=== PATIENT | female | born 1955 | race African-American/Black ===

== ENCOUNTER 2018-12-02 22:34 | Observation (INO) | payer OTHER ==
[2018-12-02 23:37] LABS: Absolute Lymphocytes (CBC) 3.4 K/uL (0.7-4.9); Basophils % 0.9 % (0-1.3); Hematocrit 37.9 % (36.0-45.0); Lymphocytes % 28.4 % (15.3-44.8); MPV 9.3 fL (7.6-11.3); Protime INR 1.12; RBC Red Blood Cell Count 4.19 M/uL (3.86-4.86)
[2018-12-02 23:50] LABS: ALT/SGPT 22 U/L (12-78); AST/SGOT 14 U/L (15-37); Albumin 3.2 g/dL (3.4-5.0); Alkaline Phosphatase 230 U/L (45-117); BUN Blood Urea Nitrogen 16 mg/dL (7-18); Bicarbonate 26 mmol/L (21-32); Bilirubin Direct < 0.1 mg/dL (0-0.2); Bilirubin Total 0.3 mg/dL (0.2-1.0); Glucose Level 106 mg/dL (74-106); Magnesium 2.1 mg/dL (1.8-2.4); NT PRO-BNP 4590 pg/mL (<125); Potassium 4.1 mmol/L (3.5-5.1); Protein, Total 7.9 g/dL (6.4-8.2); Sodium Level 143 mmol/L (136-145); Troponin (Emerg Dept Use Only) 0.06 ng/mL (0.0-0.045)
[2018-12-03 00:17] LABS: Blood Gas Oxyhemoglobin 86.8 % (94-97); Blood O2 Saturation 90.7 % (92-98.5)
[2018-12-03] MEDS ORDERED: ACETAMINOPHEN 500 MG TAB ONE (01:17)
[2018-12-03] MEDS ORDERED: TRAMADOL HCL 50 MG TAB ONE (01:27)
[2018-12-03] MEDS ORDERED: MORPHINE 2 MG/ML SYR ONE (02:02)
[2018-12-03] MEDS ORDERED: ONDANSETRON 4 MG/2 ML VIAL ONE (02:02)
[2018-12-03] MEDS ORDERED: cloNIDine HCl 0.1 MG TAB ONE (02:41)
[2018-12-03] MEDS ORDERED: FUROSEMIDE 40 MG/4 ML VIAL ONE (02:41)
[2018-12-03 02:43] LABS: Urine Blood TRACE (NEG); Urine Glucose NEGATIVE (NEG); Urine Protein 2+ (NEG); Urine Specific Gravity 1.015 (1.005-1.030)
--- NOTE | 2018-12-03 02:45 | ER ---
Nurse's Notes [facility] Name: Emeli Perez Age: 63 yrs Sex: Female : 1955 Arrival Date: 12/02/2018 Time: 22:36 Bed 7 Private MD: Diagnosis: Unspecified combined systolic (congestive) and diastolic (congestive) heart failure;Hypoxemia;Hypertensive crisis Presentation: 12/02 22:42 Presenting complaint: EMS states: they were called to pt home for SOB, chest pain and ak1 right ear pain. pt was given oxygen, asprin 324mg and nitro 0.4 SL, pt reported pain resolved. pt started Levaquin yesterday after seeing the PCP for sinus congestion, SOB and right ear pain. Transition of care: patient was not received from another setting of care. Onset of symptoms is unknown. Risk Assessment: Do you want to hurt yourself or someone else? Patient reports no desire to harm self or others. Initial Sepsis Screen: Does the patient meet any 2 criteria? No. Patient's initial sepsis screen is negative. Does the patient have a suspected source of infection? No. Patient's initial sepsis screen is negative. Care prior to arrival: None. 22:42 Method Of Arrival: EMS: [facility] ak1 22:42 Acuity: CORNELIA 3 ak1 Triage Assessment: 22:54 General: Appears in no apparent distress. Behavior is calm, cooperative. Pain: ak1 Complains of pain in right ear and chest. EENT: Reports pain in right ear X2 months with chest congestion. pt seen by PCP started levoquin yesterday. Neuro: Level of Consciousness is awake, alert, obeys commands, confused, Oriented to person, place, time, situation, Appropriate for age Sr. Media Manager are equal bilaterally Moves all extremities. Speech is normal. Cardiovascular: Reports pt denies chest pain at this moment. chest pain resolved upon arrival to ER after oxygen, aspirin and SL nitro. Respiratory: Reports shortness of breath at rest Onset: The symptoms/episode began/occurred yesterday, the patient has mild shortness of breath. GI: No signs and/or symptoms were reported involving the gastrointestinal system. : No signs and/or symptoms were reported regarding the genitourinary system. Derm: No signs and/or symptoms reported regarding the dermatologic system. Musculoskeletal: No signs and/or symptoms reported regarding the musculoskeletal system. Historical: - Allergies: 22:50 Codeine; ak1 22:50 Morphine; ak1 22:50 PENICILLINS; ak1 - Home Meds: 22:50 alprazolam 0.5 mg Oral tab [Active]; atenolol 50 mg Oral tab [Active]; furosemide 40 mg ak1 oral tab [Active]; Hydrocodone-Acetaminophen 5/500 Oral [Active]; simvastatin 40 mg Oral tab for Hyperlipidemia [Active]; clonidine HCl 0.2 mg Oral tab 1 tab once daily [Active]; gabapentin 300 mg oral cap [Active]; new blood pressure med [Active]; allopurinol Oral [Active]; - PMHx: 22:50 CHF; Hypertension; Hyperlipidemia; Gout; Arthritis; ak1 - PSHx: 22:50 back surgery x5; Cholecystectomy; Appendectomy; Hysterectomy; ak1 - Immunization history:: Adult Immunizations unknown. - Social history:: Smoking status: Patient/guardian denies using tobacco. - Ebola Screening: : No symptoms or risks identified at this time. Screenin:54 Abuse screen: Denies threats or abuse. Denies injuries from another. Nutritional ak1 screening: No deficits noted. Tuberculosis screening: No symptoms or risk factors identified. Fall Risk None identified. Assessment: 23:01 Cardiovascular: Rhythm is sinus bradycardia. Respiratory: Airway is patent Respiratory ak1 effort is even, unlabored, Respiratory pattern is regular, symmetrical, congestion heard in pt chest. pt c/o "rattling" in her chest. 23:36 Reassessment: pt assisted to bedside commode. pt placed in pull up brief. General: ak1 Appears in no apparent distress. 12/03 00:00 Reassessment: pt jewelry placed in a urine cup and then into belonging bag with pt ak1 shirt and underwear. pt large hoop earrings given to her son at the bedside. 01:16 Reassessment: complaint of severe ear pain ED provider aware with order made and rr5 carried out. 01:20 Reassessment: patient refused for tylenol medication for pain. ED provider aware. rr5 02:13 Reassessment: pt crying due to right ear pain, ERP notified. Dr. Cherry notified with ak1 new verbal orders for zofran and morphine, pt is allergic to morphine. 02:26 Reassessment: pt stated she was seen in ER last year to look and see what pain ak1 medication she was given then. pt was given Dilaudid and fentanyl Dr. Cherry notified, no new orders given. Vital Signs: 12/02 22:51 BP 148 / 84; Pulse 74; Resp 18; Temp 97.2; Pulse Ox 97% on R/A; Weight 99.79 kg (R); ak1 Height 5 ft. 2 in. (157.48 cm) (R); Pain 10/10; 23:55 BP 186 / 76; Pulse 61; Resp 18; Pulse Ox 100% on 2 lpm NC; ak1 12/03 00:02 BP 183 / 74; Pulse 67; Resp 18; Pulse Ox 97% on R/A; ak1 02:28 BP 195 / 88; Pulse 63; Resp 18; Pulse Ox 100% on R/A; Pain 10/10; ak1 12/02 22:51 Body Mass Index 40.24 (99.79 kg, 157.48 cm) ak1 12/02 22:51 2L NC pt oxygen increased to 99% pt stated the oxygen makes her SOB better. oxygen ak1 placed for comfort. ED Course: 22:36 Patient arrived in ED. ds1 22:41 Jayme Cherry MD is Attending Physician. tw4 22:42 Lora Zaragoza, BRANDIN is Primary Nurse. ak1 22:45 Triage completed. ak1 22:51 Arm band placed on Patient placed in an exam room, on a stretcher, on oxygen, on ak1 triage rn, on pulse oximetry, Patient notified of wait time. 23:01 Patient has correct armband on for positive identification. Placed in gown. Bed in low ak1 position. Call light in reach. Side rails up X2. components engineer on. Pulse ox on. NIBP on. Door closed. Warm blanket given. Pillow given. 23:07 XRAY Chest (1 view) In Process Unspecified. EDMS 23:23 Initial lab(s) drawn, by ED staff, sent to lab. EKG done, by ED staff, reviewed by lakshmi Cherry MD X-ray(s) taken. Inserted saline lock: 22 gauge in left antecubital area, using aseptic technique. ,using aseptic technique. placed by Joshua GHOTRA Blood collected. 12/03 01:18 CT Chest For PE Angio In Process Unspecified. EDMS 02:43 Domingo Hayden is Hospitalizing Provider. tw4 03:45 No provider procedures requiring assistance completed. Patient admitted, IV remains in ak1 place. Administered Medications: 01:23 Not Given (Patient Refused): Tylenol 1000 mg PO once rr5 01:31 Drug: traMADol 50 mg {Note: rass 0.} Route: PO; rr5 02:11 Follow up: Response: No adverse reaction ak1 02:45 Drug: cloNIDine 0.1 mg Route: PO; rr5 02:46 Drug: Lasix 40 mg Route: IVP; Site: left antecubital; rr5 Outcome: 02:43 Decision to Hospitalize by Provider. tw4 03:45 Admitted to Tele accompanied by tech, via wheelchair, with oxygen, with chart. ak1 03:45 Condition: stable 03:45 Instructed on the need for admit. 04:13 Patient left the ED. ak1 Signatures: Dispatcher [employer] [facility] Caty De La Paz ds1 Lora Zaragoza RN RN ak1 Jayme Cherry MD MD tw4 Joshua Hopkins RN RN rr5
--- NOTE | 2018-12-03 02:45 | EDPHYS ---
Physician Documentation [facility] Name: Emeli Perez Age: 63 yrs Sex: Female : 1955 Arrival Date: 12/02/2018 Time: 22:36 Bed 7 Private MD: ED Physician Jayme Cherry HPI: 12/03 03:49 This 63 yrs old Black Female presents to ER via EMS with complaints of Shortness Of tw4 Breath, Chest Pain, Ear Pain. 03:49 The patient has shortness of breath at rest. Onset: The symptoms/episode began/occurred tw4 today. Duration: The symptoms are continuous, and are unchanged since they started. The patient's shortness of breath has no apparent modifying factors. Associated signs and symptoms: The patient has no apparent associated signs or symptoms. Severity of symptoms: At their worst the symptoms were moderate in the emergency department the symptoms are unchanged. The patient has experienced similar episodes in the past, a few times. The patient has been recently seen by a physician: the patient's primary care provider. Historical: - Allergies: 12/02 22:50 Codeine; ak1 22:50 Morphine; ak1 22:50 PENICILLINS; ak1 - Home Meds: 22:50 alprazolam 0.5 mg Oral tab [Active]; atenolol 50 mg Oral tab [Active]; furosemide 40 mg ak1 oral tab [Active]; Hydrocodone-Acetaminophen 5/500 Oral [Active]; simvastatin 40 mg Oral tab for Hyperlipidemia [Active]; clonidine HCl 0.2 mg Oral tab 1 tab once daily [Active]; gabapentin 300 mg oral cap [Active]; new blood pressure med [Active]; allopurinol Oral [Active]; - PMHx: 22:50 CHF; Hypertension; Hyperlipidemia; Gout; Arthritis; ak1 - PSHx: 22:50 back surgery x5; Cholecystectomy; Appendectomy; Hysterectomy; ak1 - Immunization history:: Adult Immunizations unknown. - Social history:: Smoking status: Patient/guardian denies using tobacco. - Ebola Screening: : No symptoms or risks identified at this time. ROS: 12/03 03:49 Constitutional: Negative for fever, chills, and weight loss, Eyes: Negative for injury, tw4 pain, redness, and discharge, Cardiovascular: Negative for chest pain, palpitations, and edema. Abdomen/GI: Negative for abdominal pain, nausea, vomiting, diarrhea, and constipation, Back: Negative for injury and pain, MS/Extremity: Negative for injury and deformity, Skin: Negative for injury, rash, and discoloration. Respiratory: Positive for shortness of breath, Negative for cough, dyspnea on exertion, hemoptysis, orthopnea, pleurisy. Exam: 03:49 Constitutional: This is a well developed, well nourished patient who is awake, alert, tw4 and in no acute distress. Head/Face: Normocephalic, atraumatic. Chest/axilla: Normal chest wall appearance and motion. Nontender with no deformity. No lesions are appreciated. Cardiovascular: Regular rate and rhythm with a normal S1 and S2. No gallops, murmurs, or rubs. Normal PMI, no JVD. No pulse deficits. Respiratory: Lungs have equal breath sounds bilaterally, clear to auscultation and percussion. No rales, rhonchi or wheezes noted. No increased work of breathing, no retractions or nasal flaring. Abdomen/GI: Soft, non-tender, with normal bowel sounds. No distension or tympany. No guarding or rebound. No evidence of tenderness throughout. Back: No spinal tenderness. No costovertebral tenderness. Full range of motion. MS/ Extremity: Pulses equal, no cyanosis. Neurovascular intact. Full, normal range of motion. Neuro: Awake and alert, GCS 15, oriented to person, place, time, and situation. Cranial nerves II-XII grossly intact. Motor strength 5/5 in all extremities. Sensory grossly intact. Cerebellar exam normal. Normal gait. Vital Signs: 12/02 22:51 BP 148 / 84; Pulse 74; Resp 18; Temp 97.2; Pulse Ox 97% on R/A; Weight 99.79 kg (R); ak1 Height 5 ft. 2 in. (157.48 cm) (R); Pain 10/; 23:55 BP 186 / 76; Pulse 61; Resp 18; Pulse Ox 100% on 2 lpm NC; ak1 12/03 00:02 BP 183 / 74; Pulse 67; Resp 18; Pulse Ox 97% on R/A; ak1 02:28 BP 195 / 88; Pulse 63; Resp 18; Pulse Ox 100% on R/A; Pain 10/10; ak1 12/02 22:51 Body Mass Index 40.24 (99.79 kg, 157.48 cm) ak1 12/02 22:51 2L NC pt oxygen increased to 99% pt stated the oxygen makes her SOB better. oxygen ak1 placed for comfort. MDM: 22:41 Patient medically screened. 12/03 03:54 Differential diagnosis: asthma, pulmonary edema, Pulmonary Embolism reactive airway tw4 disease. Data reviewed: vital signs, nurses notes. Data reviewed: lab test result(s), EKG, radiologic studies, plain films. Data interpreted: Pulse oximetry: Interpretation: normal. Test interpretation: by ED physician or midlevel provider: ECG, plain radiologic studies. Counseling: I had a detailed discussion with the patient and/or guardian regarding: the historical points, exam findings, and any diagnostic results supporting the discharge/admit diagnosis, lab results, radiology results. Physician consultation: Domingo Hayden regarding admission, to the telemetry unit. and will see patient in ED. 12/02 22:41 Order name: Basic Metabolic Panel 12/02 22:41 Order name: CBC with Diff; Complete Time: 23:53 tw12/02 23:53 Interpretation: Normal except: WBC 11.8; RDW 18.1. 12/02 22:41 Order name: LFT's; Complete Time: 23:53 tw12/02 23:53 Interpretation: Normal except: AST 14; ALK 230; ALB 3.2; GLOB 4.7; A/G 0.7. 12/02 22:41 Order name: Magnesium; Complete Time: 23:53 12/02 22:41 Order name: NT PRO-BNP; Complete Time: 23:53 tw4 12/02 23:54 Interpretation: Abnormal. 12/02 22:41 Order name: PT-INR; Complete Time: 23:53 12/02 23:54 Interpretation: Abnormal: PT 13.2. 12/02 22:41 Order name: Troponin (emerg Dept Use Only); Complete Time: 23:53 12/02 22:42 Order name: Basic Metabolic Panel; Complete Time: 23:53 EDMS 12/02 23:52 Order name: ABG: on RA 12/03 02:21 Order name: Urine Dipstick--Ancillary (enter results) ar5 12/03 03:44 Order name: Basic Metabolic Panel [facility] 12/03 03:44 Order name: CBC with Automated Diff [facility] 12/03 03:44 Order name: Troponin I [facility] 12/03 03:44 Order name: Troponin I [facility] 12/02 22:41 Order name: XRAY Chest (1 view) tw 12/02 22:41 Order name: EKG; Complete Time: 22:42 tw4 12/02 22:41 Order name: Cardiac monitoring; Complete Time: 23:00 tw4 12/02 22:41 Order name: EKG - Nurse/Tech; Complete Time: 23:00 tw4 12/02 22:41 Order name: IV Saline Lock; Complete Time: 23:00 tw4 12/02 22:41 Order name: Labs collected and sent; Complete Time: 23:23 tw4 12/02 22:41 Order name: O2 Per Protocol; Complete Time: 23:00 tw4 12/02 22:41 Order name: O2 Sat Monitoring; Complete Time: 23:00 tw4 12/02 23:52 Order name: CT Chest For PE Angio tw4 12/03 03:44 Order name: Heart Healthy [facility] 12/03 03:44 Order name: Echo with Doppler [facility] 12/03 03:44 Order name: Troponin I [facility] EC:49 Rate is 56 beats/min. Rhythm is regular, Sinus bradycardia. QRS [place] is Normal. VT tw4 interval is normal. QRS interval is normal. QT interval is normal. No Q waves. T waves are Inverted in leads II, III, aVF, V4, V5, V6. No ST changes noted. Clinical impression: NSR w/ Non-specific ST/T Changes and Abnormal EKG without significant change. Interpreted by me. Reviewed by me. Administered Medications: 01:23 Not Given (Patient Refused): Tylenol 1000 mg PO once rr5 01:31 Drug: traMADol 50 mg {Note: rass 0.} Route: PO; rr5 02:11 Follow up: Response: No adverse reaction ak1 02:45 Drug: cloNIDine 0.1 mg Route: PO; rr5 02:46 Drug: Lasix 40 mg Route: IVP; Site: left antecubital; rr5 Disposition: 12/03/18 02:43 Hospitalization ordered by Domingo Hayden for Inpatient Admission. Preliminary diagnosis are Unspecified combined systolic (congestive) and diastolic (congestive) heart failure, Hypoxemia, Hypertensive crisis. - Bed requested for Telemetry/MedSurg (Inpatient). - Status is Inpatient Admission. ak1 - Condition is Stable. - Problem is an ongoing problem. - Symptoms are unchanged. UTI on Admission? No Signatures: Dispatcher [employer] EDMS Lora Zaragoza RN RN ak1 Itzel Yee RN RN Jayme Cherry MD MD tw4 Joshua Hopkins RN RN rr5 Corrections: (The following items were deleted from the chart) 02:43 02:43 Hospitalization Ordered by Domingo Hayden for Inpatient Admission. Preliminary tw4 diagnosis is Unspecified combined systolic (congestive) and diastolic (congestive) heart failure; Hypoxemia. Bed requested for Telemetry/MedSurg (Inpatient). Status is Inpatient Admission. Condition is Stable. Problem is an ongoing problem. Symptoms are unchanged. UTI on Admission? No. tw4 03:43 02:43 12/03/2018 02:43 Hospitalization Ordered by Domingo Hayden for Inpatient cg Admission. Preliminary diagnosis is Unspecified combined systolic (congestive) and diastolic (congestive) heart failure; Hypoxemia; Hypertensive crisis. Bed requested for Telemetry/MedSurg (Inpatient). Status is Inpatient Admission. Condition is Stable. Problem is an ongoing problem. Symptoms are unchanged. UTI on Admission? No. tw4 04:13 03:43 12/03/2018 02:43 Hospitalization Ordered by Domingo Hayden for Inpatient ak1 Admission. Preliminary diagnosis is Unspecified combined systolic (congestive) and diastolic (congestive) heart failure; Hypoxemia; Hypertensive crisis. Bed requested for Telemetry/MedSurg (Inpatient). Status is Inpatient Admission. Condition is Stable. Problem is an ongoing problem. Symptoms are unchanged. UTI on Admission? No. cg
--- NOTE | 2018-12-03 03:28 | P.HP ---
Certification for Inpatient Patient admitted to: Observation With expected LOS: <2 Midnights Practitioner: I am a practitioner with admitting privileges, knowledge of patient current condition, hospital course, and medical plan of care. Services: Services provided to patient in accordance with Admission requirements found in Title 42 Section 412.3 of the Code of Federal Regulations Patient History Date of Service: 12/03/18 Reason for admission: Shortness of breath History of Present Illness: 63-year-old woman with history of chronic diastolic heart failure presented to the emergency department with a complaint of intermittent shortness of breath that got worse yesterday. She reports upper respiratory symptoms including nasal congestion and right ear pain. She also reports some discharge from the right ear. Patient denied any wheezing or palpitation. She also denied any chest pain. She states that she has had this right ear pain for about 1-1/2 months now. She saw her PCP who prescribed her Levaquin and has taken 2 doses as of now. In the ED, her BNP is noted to be elevated, initial troponin also elevated. Systolic blood pressure noted to be severely high, in the 200s. Chest x-ray reviewed and noted mild interstitial edema. EKG demonstrated sinus bradycardia and T-wave inversions in the lateral leads. Patient is placed under observation for further management of CHF exacerbation. Allergies codeine [Codeine] Allergy (Verified 12/03/18 04:27) Itching/Hives/Rash morphine Allergy (Verified 12/03/18 04:27) Itching/Hives/Rash Penicillins Allergy (Verified 12/03/18 04:27) Itching/Hives/Rash - Past Medical/Surgical History Diabetic: No -: Chronic renal disease, Nephrology-Dr. Uribe -: Gout -: Obesity -: CHF, Cardiology-Dr. Luque -: Hyperlipidemia -: Anemia -: Anxiety -: Chronic back pain -: Previous neck fusion -: Previous back fusion -: Back surgeries -: Cholecystectomy -: Appendectomy -: Hysterectomy Psychosocial/ Personal History: She is currently . Has 2 children. Has 9 grandchildren. She does not work. - Family History Father -: Heart disease Mother -: Heart disease - Social History Alcohol use: Yes CD- Drugs: No Caffeine use: No Review of Systems Other: General: No fever, no malaise, no unintentional weight loss. Eyes: No eye discharge, CVS: No chest pain, no palpitation, no lightheadedness. GI: No abdominal pain, no nausea no vomit, no constipation, no diarrhea. Genitourinary: No dysuria, no urinary frequency, no incontinence, no hematuria. Musculoskeletal: No joint pains, or joint swelling, no gait instability. Neurology: No headache, no asymmetric, weakness, no problem with swallowing. Except as documented, all other systems reviewed and negative. Physical Examination - Physical Exam General: Alert, In no apparent distress, Oriented x3, Obese HEENT: Atraumatic, Normocephalic, PERRLA, Mucous membr. moist/pink, EOMI Neck: Supple, 2+ carotid pulse no bruit, JVD not distended, No Thyromegaly Respiratory: Crackles/rales (Bilateral bibasilar rales) Cardiovascular: Normal pulses, Regular rate/rhythm, Normal S1 S2, No murmurs, Edema (Trace bilateral ankle edema) Capillary refill: <2 Seconds Gastrointestinal: Normal bowel sounds, Soft and benign, Non-distended, No tenderness Musculoskeletal: No clubbing, No erythema, No tenderness Integumentary: No rashes, No erythema Neurological: Normal strength at 5/5 x4 extr, Cranial nerves 3-12 intact, Normal affect Lymphatics: Other (No cervical lymphadenopathy) - Studies Laboratory Data (last 24 hrs) 12/02/18 23:25: PT 13.2 H, INR 1.12 12/02/18 23:25: WBC 11.8 H, Hgb 12.3, Hct 37.9, Plt Count 354 12/02/18 23:25: Sodium 143, Potassium 4.1, BUN 16, Creatinine 1.44 H, Glucose 106, Magnesium 2.1, Total Bilirubin 0.3, AST 14 L, ALT 22, Alkaline Phosphatase 230 H Assessment and Plan - Problems (Diagnosis) (1) Acute on chronic diastolic heart failure Current Visit: Yes Status: Acute (2) Elevated troponin Current Visit: Yes Status: Acute (3) Hypertensive urgency Current Visit: Yes Status: Acute (4) Chronic kidney disease, stage 3 Current Visit: Yes Status: Acute (5) Otitis externa Current Visit: Yes Status: Acute - Plan Place under observation in telemetry Elevated troponin likely secondary to demand ischemia Continue to trend troponin. Aggressive blood pressure control. Continue home antihypertensives. Hydralazine p.r.n. for BP spikes. IV Lasix for diuresis. Monitor renal function closely given CKD stage 3. Daily weight, intake and output monitoring. Obtain echocardiogram Continue Levaquin and doxycycline for otitis externa. Pain management with [place]. Discharge Plan: Home - Advance Directives Does patient have a Living Will: No Does patient have a Durable POA for Healthcare: No - Code Status/Comfort Care Code Status: Full Code
[2018-12-03] MEDS ORDERED: ONDANSETRON 4 MG/2 ML VIAL IV PRN (03:37)
[2018-12-03] MEDS ORDERED: ALBUTEROL 2.5 MG/3 ML NEB SOL NEB PRN (03:37)
[2018-12-03] MEDS ORDERED: HYDRALAZINE HCL 20 MG/ML VIAL IV PRN (03:44)
[2018-12-03] MEDS: IPRATROPIUM BROM 0.5MG/2.5ML NEB SCH ×5 (04:25→20:00)
[2018-12-03 05:37] LABS: Absolute Lymphocytes (CBC) 3.8 K/uL (0.7-4.9); Basophils % 0.6 % (0-1.3); Hematocrit 36.9 % (36.0-45.0); Lymphocytes % 33.7 % (15.3-44.8); MPV 9.3 fL (7.6-11.3); RBC Red Blood Cell Count 4.08 M/uL (3.86-4.86)
[2018-12-03 05:54] LABS: Potassium 4.2 mmol/L (3.5-5.1); Troponin I 0.05 ng/mL (0.0-0.045)
[2018-12-03] MEDS: HYDROCODONE/APAP 7.5/325 MG TAB PO PRN ×2 (06:27→16:53)
[2018-12-03] MEDS ORDERED: PNEUMOCOCCAL VACCINE 0.5 ML IMVAC ONE (08:00)
[2018-12-03] MEDS: ASPIRIN EC 81 MG TAB PO SCH ×2 (08:10→08:17)
[2018-12-03] MEDS: DOXYCYCLINE 100 MG CAP PO SCH ×2 (08:11→21:42)
[2018-12-03] MEDS: HEPARIN 5000 UNIT/ML 1 ML VIAL SQ SCH ×2 (08:12→16:54)
[2018-12-03] MEDS: FUROSEMIDE 40 MG/4 ML VIAL IV SCH ×2 (08:15→16:46)
[2018-12-03] MEDS: AMLODIPINE 5 MG TAB PO SCH (08:15)
[2018-12-03] MEDS ORDERED: levoFLOXacin 750 MG TAB PO SCH (09:00)
--- NOTE | 2018-12-03 09:07 | RAD REPORT ---
EXAM DESCRIPTION: RAD - Chest Single View - 12/02/2018 11:07 pm CLINICAL HISTORY: Shortness of breath, chest pain COMPARISON: May 2017 TECHNIQUE: AP portable chest image was obtained 2301 hours . FINDINGS: Lung volumes are low. Interstitial and patchy alveolar opacities are present in the left b ase. Interstitial pneumonia and shallow inspiration atelectasis can both create this pattern. No dens e consolidation seen. Heart size is similar to comparison. Vasculature is mildly prominent. No measur able pleural effusion and no pneumothorax. No acute bony abnormality seen. No acute aortic findings s uspected. IMPRESSION: Atelectasis versus interstitial pneumonia and lower left lung field. Mild prominence of the heart, vasculature and lung markings could indicate an underlying mild failure or volume overload.
--- NOTE | 2018-12-03 12:27 | P.CNS ---
Date of Consult: 12/03/18 Reason for Consult: CKD Requesting Physician: Jorge Sosa Chief Complaint: Shortness of breath History of Present Illness: 63-year-old woman with history of chronic diastolic heart failure presented to the emergency department with a complaint of intermittent shortness of breath that got worse yesterday. She reports upper respiratory symptoms including nasal congestion and right ear pain. She also reports some discharge from the right ear. Patient denied any wheezing or palpitation. She also denied any chest pain. She states that she has had this right ear pain for about 1-1/2 months now. She saw her PCP who prescribed her Levaquin and has taken 2 doses as of now. In the ED, her BNP is noted to be elevated, initial troponin also elevated. Systolic blood pressure noted to be severely high, in the 200s. Chest x-ray reviewed and noted mild interstitial edema. EKG demonstrated sinus bradycardia and T-wave inversions in the lateral leads. Patient is placed under observation for further management of CHF exacerbation. 03:49 This 63 yrs old Black Female presents to ER via EMS with complaints of Shortness Of tw4 Breath, Chest Pain, Ear Pain. 03:49 The patient has shortness of breath at rest. Onset: The symptoms/episode began/occurred tw4 today. Duration: The symptoms are continuous, and are unchanged since they started. The patient's shortness of breath has no apparent modifying factors. Associated signs and symptoms: The patient has no apparent associated signs or symptoms. Severity of symptoms: At their worst the symptoms were moderate in the emergency department the symptoms are unchanged. The patient has experienced similar episodes in the past, a few times. The patient has been recently seen by a physician: the patient's primary care provider. Allergies codeine [Codeine] Allergy (Verified 12/03/18 04:27) Itching/Hives/Rash morphine Allergy (Verified 12/03/18 04:27) Itching/Hives/Rash Penicillins Allergy (Verified 12/03/18 04:27) Itching/Hives/Rash Home medications list reviewed: Yes Home Medications: ALPRAZolam [Alprazolam] 0.5 mg PO TIDP PRN 12/03/18 Clonidine HCl [Catapres*] 0.2 mg PO TIDP PRN 12/03/18 Gabapentin 300 mg PO TID 12/03/18 Hydrocodone/Acetaminophen [Hydrocodone-Acetamin 7.5-325] 1 tab PO TID 12/03/18 Nadolol 20 mg PO DAILY 12/03/18 Simvastatin 40 mg PO BEDTIME 12/03/18 Furosemide [Lasix] 40 mg PO BID #30 tablet 12/04/18 - Past Medical/Surgical History Diabetic: No -: Chronic renal disease, Nephrology-Dr. Uribe -: Gout -: Obesity -: CHF, Cardiology-Dr. Luque -: Hyperlipidemia -: Anemia -: Anxiety -: Chronic back pain -: Previous neck fusion -: Previous back fusion -: Back surgeries -: Cholecystectomy -: Appendectomy -: Hysterectomy Psychosocial/ Personal History: She is currently . Has 2 children. Has 9 grandchildren. She does not work. - Family History Father Medical History: Heart disease Mother Medical History: Heart disease - Social History Smoking Status: Former smoker Alcohol use: Yes CD- Drugs: No Caffeine use: No Place of Residence: Home Review of Systems 10-point ROS is otherwise unremarkable Respiratory: SOB with Excertion Cardiovascular: Edema Physical Examination Temp Pulse Resp BP Pulse Ox 97.6 F 86 20 150/87 H 97 12/03/18 08:00 12/03/18 08:15 12/03/18 08:00 12/03/18 08:15 12/03/18 08:00 General: Alert, In no apparent distress, Oriented x3, Cooperative HEENT: Atraumatic Neck: Supple Respiratory: Clear to auscultation bilaterally Cardiovascular: No edema, Regular rate/rhythm, No rubs Gastrointestinal: Soft and benign, Non-distended Musculoskeletal: No clubbing, No contractures, No erythema Integumentary: No rashes, No cyanosis Neurological: Normal speech Laboratory Data (last 24 hrs) 12/02/18 23:25: PT 13.2 H, INR 1.12 12/02/18 23:25: WBC 11.8 H, Hgb 12.3, Hct 37.9, Plt Count 354 12/02/18 23:25: Sodium 143, Potassium 4.1, BUN 16, Creatinine 1.44 H, Glucose 106, Magnesium 2.1, Total Bilirubin 0.3, AST 14 L, ALT 22, Alkaline Phosphatase 230 H Imagings Data: EXAM DESCRIPTION: RAD - Chest Single View - 12/02/2018 11:07 pm CLINICAL HISTORY: Shortness of breath, chest pain COMPARISON: May 2017 TECHNIQUE: AP portable chest image was obtained 2301 hours . FINDINGS: Lung volumes are low. Interstitial and patchy alveolar opacities are present in the left base. Interstitial pneumonia and shallow inspiration atelectasis can both create this pattern. No dense consolidation seen. Heart size is similar to comparison. Vasculature is mildly prominent. No measurable pleural effusion and no pneumothorax. No acute bony abnormality seen. No acute aortic findings suspected. IMPRESSION: Atelectasis versus interstitial pneumonia and lower left lung field. Mild prominence of the heart, vasculature and lung markings could indicate an underlying mild failure or volume overload. Conclusions/Impression: A/ Diastolic CHF, A/C. CKD III with proteinuria. HTN with CKD/ CHF. Primary gout. Chronic Pain Syndrome/ CLBP. P/ Continue current POC and Medications. Continue furosemide. Restart home medications as indicated. Low sodium diet. No NSAIDs. AM labs. Daily weight. Thank you kindly for the consultation.
--- NOTE | 2018-12-03 15:43 | EKG ---
Test Date: 2018-12-02 Test Time: 22:51:12 Dresser Tender: GALINA MEASUREMENT RESULTS: Intervals: Rate: 56 ME: 156 QRSD: 96 QT: 426 QTc: 411 [place]: P: 30 ME: 156 QRS: -8 T: 216 INTERPRETIVE STATEMENTS: Sinus bradycardia Possible Left atrial enlargement Left ventricular hypertrophy ST & T wave abnormality, consider inferolateral ischemia Abnormal ECG Compared to ECG 06/05/2017 00:13:56 ST (T wave) deviation now present Possible ischemia now present Sinus rhythm no longer present Electronically Signed On 12-03-18 15:42:29 CDT by Ry Peña
[2018-12-04] MEDS: HEPARIN 5000 UNIT/ML 1 ML VIAL SQ SCH ×2 (01:00→08:35)
[2018-12-04] MEDS: IPRATROPIUM BROM 0.5MG/2.5ML NEB SCH ×4 (04:00→12:35)
[2018-12-04] MEDS: HYDROCODONE/APAP 7.5/325 MG TAB PO PRN (05:14)
[2018-12-04 05:19] VITALS: BMI 42.5
[2018-12-04] MEDS: DOXYCYCLINE 100 MG CAP PO SCH (08:34)
[2018-12-04] MEDS: AMLODIPINE 5 MG TAB PO SCH (08:34)
[2018-12-04] MEDS: FUROSEMIDE 40 MG/4 ML VIAL IV SCH (08:34)
[2018-12-04] MEDS: ASPIRIN EC 81 MG TAB PO SCH (08:36)
[2018-12-04 13:01] VITALS: BP 149/71; TEMP 97.1
--- NOTE | 2018-12-04 13:12 | P.SSS ---
Patient History Date of Service: 12/04/18 Reason for admission: Shortness of breath History of Present Illness: 63-year-old woman with history of chronic diastolic heart failure presented to the emergency department with a complaint of intermittent shortness of breath that got worse yesterday. She reports upper respiratory symptoms including nasal congestion and right ear pain. She also reports some discharge from the right ear. Patient denied any wheezing or palpitation. She also denied any chest pain. She states that she has had this right ear pain for about 1-1/2 months now. She saw her PCP who prescribed her Levaquin and has taken 2 doses as of now. In the ED, her BNP is noted to be elevated, initial troponin also elevated. Systolic blood pressure noted to be severely high, in the 200s. Chest x-ray reviewed and noted mild interstitial edema. EKG demonstrated sinus bradycardia and T-wave inversions in the lateral leads. Patient is placed under observation for further management of CHF exacerbation. Allergies codeine [Codeine] Allergy (Verified 12/03/18 04:27) Itching/Hives/Rash morphine Allergy (Verified 12/03/18 04:27) Itching/Hives/Rash Penicillins Allergy (Verified 12/03/18 04:27) Itching/Hives/Rash Home medications list reviewed: Yes Home Medications: ALPRAZolam [Alprazolam] 0.5 mg PO TIDP PRN 12/03/18 Clonidine HCl [Catapres*] 0.2 mg PO TIDP PRN 12/03/18 Gabapentin 300 mg PO TID 12/03/18 Hydrocodone/Acetaminophen [Hydrocodone-Acetamin 7.5-325] 1 tab PO TID 12/03/18 Nadolol 20 mg PO DAILY 12/03/18 Simvastatin 40 mg PO BEDTIME 12/03/18 - Past Medical/Surgical History Has patient received pneumonia vaccine in the past: No Diabetic: No -: Chronic renal disease, Nephrology-Dr. Uribe -: Gout -: Obesity -: CHF, Cardiology-Dr. Luque -: Hyperlipidemia -: Anemia -: Anxiety -: Chronic back pain -: Previous neck fusion -: Previous back fusion -: Back surgeries -: Cholecystectomy -: Appendectomy -: Hysterectomy Psychosocial/ Personal History: She is currently . Has 2 children. Has 9 grandchildren. She does not work. - Family History Father -: Heart disease Mother -: Heart disease - Social History Smoking Status: Former smoker Alcohol use: Yes CD- Drugs: No Caffeine use: No Place of Residence: Home Review of Systems 10-point ROS is otherwise unremarkable Physical Examination - Vital Signs Temperature: 97.1 F Blood Pressure: 149/71 Pulse: 74 Respirations: 18 Pulse Ox (%): 98 - Physical Exam General: Alert, In no apparent distress, Oriented x3 HEENT: Atraumatic, PERRLA, Mucous membr. moist/pink, EOMI, Sclerae nonicteric Neck: Supple, 2+ carotid pulse no bruit, No LAD, Without JVD or thyroid abnormality Respiratory: Clear to auscultation bilaterally, Normal air movement Cardiovascular: Regular rate/rhythm, Normal S1 S2 Gastrointestinal: Normal bowel sounds, No tenderness Musculoskeletal: No tenderness Integumentary: No rashes Neurological: Normal gait, Normal speech, Normal strength at 5/5 x4 extr, Normal tone, Normal affect Lymphatics: No axilla or inguinal lymphadenopathy Treatment Summary: Patient was admitted for observation. Her troponins were elevated, likely secondary to demand ischemia. Her troponins remained stable. Her symptoms improved after IV diuresis. Her renal function did remain stable. Nephrology was consulted. Prior to discharge, patient was alert oriented x3, in no acute distress and symptoms had resolved. She was clinically doing well her labs stable and hemodynamically she was stable. She wanted to go home as she had some personal matters to deal with. She will follow up with cardiology, Dr. Elizabeth this upcoming week. She did have an echocardiogram scheduled as an outpatient, and she will follow up with that this week. - Disposition Disposition: ROUTINE DISCHARGE Condition: GOOD Patient Discharge Instructions: Please follow up with cardiology in 1 week. Please return to the emergency room for worsening symptoms. Diet: AHA Activity: Ad brian Time Spent Managing Pts Care (In Minutes): 45
--- NOTE | 2018-12-04 13:50 | P.PN ---
Date of Service: 12/04/18 Vital Signs Temp Pulse Resp BP Pulse Ox 97.1 F 74 18 149/71 H 98 12/04/18 13:12 12/04/18 13:12 12/04/18 13:12 12/04/18 13:12 12/04/18 13:12 Medications Hydrocodone Bitart/Acetaminophen ([place] 7.5/325 Mg) 1 tab PO Q8H PRN PRN Reason: Pain scale 5-7 (Moderate) Stop: 01/02/19 05:27 Last Admin: 12/04/18 05:14 Dose: 1 tab Albuterol Sulfate (Proventil 0.083% Neb Soln) 2.5 mg NEB [id number] PRN PRN Reason: SHORTNESS OF BREATH Stop: 01/02/19 03:38 Last Admin: 12/03/18 04:25 Dose: 2.5 mg Amlodipine Besylate (Norvasc) 5 mg PO DAILY [facility] Stop: 01/02/19 09:01 Last Admin: 12/04/18 08:34 Dose: 5 mg Aspirin (Aspirin Ec) 81 mg PO DAILY [facility] Stop: 01/02/19 09:01 Last Admin: 12/04/18 08:36 Dose: Not Given Doxycycline Monohydrate (Vibramycin) 100 mg PO BID [facility]; Protocol Stop: 01/02/19 09:01 Last Admin: 12/04/18 08:34 Dose: 100 mg Furosemide (Lasix) 40 mg IV BIDL [facility] Stop: 01/02/19 09:01 Last Admin: 12/04/18 08:34 Dose: 40 mg Heparin Sodium (Porcine) (Heparin 5,000 Units/Ml) 5,000 unit SQ Q8HR [facility] Stop: 01/02/19 09:01 Last Admin: 12/04/18 08:35 Dose: Not Given Hydralazine HCl (Apresoline) 10 mg IV Q6HP PRN PRN Reason: Titrate to SBP (MUST DEFINE) Stop: 01/02/19 03:45 Last Admin: 12/03/18 12:59 Dose: 10 mg Ipratropium [place] (Atrovent Neb) 0.5 mg NEB [id number] [facility] Stop: 01/02/19 04:01 Last Admin: 12/04/18 12:35 Dose: 0.5 mg Levofloxacin (Levaquin) 750 mg PO Q48H [facility]; Protocol Stop: 01/02/19 09:01 Last Admin: 12/03/18 08:10 Dose: 750 mg Ondansetron HCl (Zofran) 4 mg IV Q6HP PRN PRN Reason: NAUSEA / VOMITING Stop: 01/02/19 03:38 Sodium Chloride (Normal Saline Flush) 10 ml IV BID [facility] Stop: 01/02/19 09:01 Last Admin: 12/04/18 08:35 Dose: 10 ml Assessment/ Plan: Nephrology. CPS improved without CP or SOB. No acute events overnight. Feeling better today. Vitals, medications, blood work and imaging reviewed in the chart. General: Alert, In no apparent distress, Oriented x3, Cooperative HEENT: Atraumatic Neck: Supple Respiratory: Clear to auscultation bilaterally Cardiovascular: No edema, Regular rate/rhythm, No rubs Gastrointestinal: Soft and benign, Non-distended Musculoskeletal: No clubbing, No contractures, No erythema Integumentary: No rashes, No cyanosis Neurological: Normal speech Laboratory Data (last 24 hrs) 12/02/18 23:25: PT 13.2 H, INR 1.12 12/02/18 23:25: WBC 11.8 H, Hgb 12.3, Hct 37.9, Plt Count 354 12/02/18 23:25: Sodium 143, Potassium 4.1, BUN 16, Creatinine 1.44 H, Glucose 106, Magnesium 2.1, Total Bilirubin 0.3, AST 14 L, ALT 22, Alkaline Phosphatase 230 H Imagings Data: EXAM DESCRIPTION: RAD - Chest Single View - 12/02/2018 11:07 pm CLINICAL HISTORY: Shortness of breath, chest pain COMPARISON: May 2017 TECHNIQUE: AP portable chest image was obtained 2301 hours . FINDINGS: Lung volumes are low. Interstitial and patchy alveolar opacities are present in the left base. Interstitial pneumonia and shallow inspiration atelectasis can both create this pattern. No dense consolidation seen. Heart size is similar to comparison. Vasculature is mildly prominent. No measurable pleural effusion and no pneumothorax. No acute bony abnormality seen. No acute aortic findings suspected. IMPRESSION: Atelectasis versus interstitial pneumonia and lower left lung field. Mild prominence of the heart, vasculature and lung markings could indicate an underlying mild failure or volume overload. Conclusions/Impression: A/ Diastolic CHF, A/C. CKD III with proteinuria. HTN with CKD/ CHF. Primary gout. Chronic Pain Syndrome/ CLBP. P/ Continue current POC and Medications. Continue furosemide. Low sodium diet. No NSAIDs. AM labs. Daily weight. Case discussed with Dr. Sosa. Patient to follow up with cardiology.
[2018-12-04 13:59] VITALS: O2SAT 100
--- NOTE | 2018-12-05 11:24 | RAD REPORT ---
EXAM DESCRIPTION: CT - Chest For Pe Angio - 12/03/2018 3:07 am CLINICAL HISTORY: The patient is 63 years old and is Female; DYSPNEA TECHNIQUE: Axial computed tomographic angiography images of the chest with intravenous contrast usin pulmonary embolism protocol. Sagittal and coronal reformatted images were created and reviewed. This CT exam was performed using one or more of the following dose reduction techniques: automated exposure control, adjustment of the mA and/or kV according to patient size, and/or use of iterative reconstruction technique. MIP reconstructed images were created and reviewed. COMPARISON: None. FINDINGS: PULMONARY ARTERIES: Unremarkable. No pulmonary embolism. AORTA: Mild calcification of the aortic arch. No thoracic aortic aneurysm. LUNGS: Bibasilar atelectasis and prominence of the interstitium. Mild apical paraseptal emphysemat ous changes. Atelectasis or scarring in the right middle lobe and lingula. No mass. PLEURAL SPACE: Unremarkable. No significant effusion. No pneumothorax. HEART: Heart is mildly prominent. No pericardial effusion. No evidence of RV dysfunction. THYROID: Heterogenous enlargement of the left thyroid lobe with inferior extension. BONES/JOINTS: Diffuse osteopenia and multilevel degenerative changes of the spine. No acute fracture. No dislocation. SOFT TISSUES: Unremarkable. LYMPH NODES: Unremarkable. No enlarged lymph nodes. IMPRESSION: 1. No pulmonary embolism. 2. Cardiomegaly with prominence of the interstitium likely due to mild interstitial edema. 3. Heterogenous enlargement of the left thyroid lobe with inferior extension. Recommend thyroid US. Reference: J Am Lai Radiol. 2015 May;12(2): 143-50. 4. Osteopenia and degenerative changes. Electronically signed by: Morgan Barrera DO 12/03/2018 2:19 AM CDT Due to temporary technical issues with the PACS/Fluency reporting system, reports are being signed by the in house radiologist as a courtesy to ensure prompt reporting. The interpreting radiologist is f ully responsible for the content of the report.
== END 2018-12-04 14:46 | disposition home or self-care (01) ==
LOC: ER 22:34 → ERHOLD 12-03 03:48 → 2ND 12-03 03:54
PROVIDERS: ADMIT Internal Medicine; ATTEND Family Medicine
DX: I13.0 Hypertensive heart and chronic kidney disease with heart failure and stage 1 through stage 4 chronic kidney disease, or unspecified chronic kidney disease (principal); R74.8 Abnormal levels of other serum enzymes; I99.8 Other disorder of circulatory system; I50.33 Acute on chronic diastolic (congestive) heart failure; N18.3 Chronic kidney disease, stage 3 (moderate); G89.4 Chronic pain syndrome; R00.1 Bradycardia, unspecified; F41.9 Anxiety disorder, unspecified; E78.5 Hyperlipidemia, unspecified; E66.9 Obesity, unspecified; H60.91 Unspecified otitis externa, right ear; M10.00 Idiopathic gout, unspecified site; Z88.6 Allergy status to analgesic agent; Z88.0 Allergy status to penicillin; Z87.891 Personal history of nicotine dependence; Z68.41 Body mass index [BMI] 40.0-44.9, adult
CPT/HCPCS: 36415; 71045; 71275; 80048; 80061; 80076; 81003; 82805; 83735; 83880; 84484; 85025; 85610; 93005; 94640; 94760; 96374; 99285; G0378; J0360; J1644; J1940; J2270; J2405; Q9967

== ENCOUNTER 2019-05-27 16:40 | Inpatient (IN) | payer OTHER ==
[2019-05-27 17:53] LABS: Absolute Lymphocytes (CBC) 4.2 K/uL (0.7-4.9); Basophils % 0.4 % (0-1.3); Hematocrit 37.5 % (36.0-45.0); Lymphocytes % 40.9 % (15.3-44.8); MPV 8.9 fL (7.6-11.3); RBC Red Blood Cell Count 4.23 M/uL (3.86-4.86)
[2019-05-27 17:57] LABS: Protime INR 1.04
[2019-05-27 18:13] LABS: ALT/SGPT 19 U/L (12-78); AST/SGOT 16 U/L (15-37); Albumin 3.1 g/dL (3.4-5.0); Alkaline Phosphatase 237 U/L (45-117); BUN Blood Urea Nitrogen 19 mg/dL (7-18); Bicarbonate 28 mmol/L (21-32); Bilirubin Direct < 0.1 mg/dL (0-0.2); Bilirubin Total 0.3 mg/dL (0.2-1.0); Glucose Level 118 mg/dL (74-106); Lipase 137 U/L (73-393); Magnesium 2.1 mg/dL (1.8-2.4); NT PRO-BNP 1163 pg/mL (<125); Potassium 4.1 mmol/L (3.5-5.1); Protein, Total 7.7 g/dL (6.4-8.2); Sodium Level 142 mmol/L (136-145); Troponin (Emerg Dept Use Only) 0.08 ng/mL (0.0-0.045)
--- NOTE | 2019-05-27 18:27 | RAD REPORT ---
EXAM DESCRIPTION: RAD - Chest Single View - 05/27/2019 5:32 pm CLINICAL HISTORY: DYSPNEA COMPARISON: Chest Single View dated 12/02/2018; Chest Single View dated 06/04/2017 TECHNIQUE: AP portable chest image was obtained 05/27/2019 5:32 pm . FINDINGS: Lung volumes are low. Portable technique, large body habitus and shallow inspiration accen tuate all chest findings. No peripheral consolidation. Vasculature and lung markings are mildly promi nent, slightly worse in the left base. Patient has shown asymmetrically prominent left base markings on prior imaging. Heart size is upper normal. No measurable pleural effusion and no pneumothorax. No acute bony abnorm ality seen. No acute aortic findings suspected. IMPRESSION: Heart, vasculature and lung markings are all mildly prominent. In the absence of pneumonia clinical or laboratory findings, pattern favors a mild volume overload or failure.
--- NOTE | 2019-05-27 18:32 | EDPHYS ---
Physician Documentation [facility] Name: Emeli Perez Age: 63 yrs Sex: Female : 1955 Arrival Date: 05/27/2019 Time: 16:43 Bed 8 Private MD: William Uribe ED Physician Roberto Still HPI: 05/27 17:13 This 63 yrs old Black Female presents to ER via Wheelchair with complaints of Shortness adilia Of Breath, Dizziness. 17:13 The patient has shortness of breath at rest, with light activity. Onset: The adilia symptoms/episode began/occurred 14 day(s) ago. Duration: The symptoms are continuous, and are steadily getting worse. The patient's shortness of breath has no apparent modifying factors. Associated signs and symptoms: The patient has no apparent associated signs or symptoms. Severity of symptoms: At their worst the symptoms were mild in the emergency department the symptoms are unchanged. The patient has experienced similar episodes in the past, a few times. Historical: - Allergies: 16:52 Codeine; aj1 16:52 Morphine; aj1 16:52 PENICILLINS; aj1 - Home Meds: 16:52 Allopurinol Oral [Active]; alprazolam 0.5 mg Oral tab [Active]; atenolol 50 mg Oral tab aj1 [Active]; clonidine HCl 0.2 mg Oral tab 1 tab once daily [Active]; furosemide 40 mg Oral tab [Active]; gabapentin 300 mg Oral cap [Active]; new blood pressure med [Active]; Hydrocodone-Acetaminophen 5/500 Oral [Active]; simvastatin 40 mg Oral tab for Hyperlipidemia [Active]; - PMHx: 16:52 Arthritis; CHF; Gout; Hyperlipidemia; Hypertension; aj1 - Immunization history:: Flu vaccine is not up to date. - Coronavirus screen:: The patient has NOT traveled to [place] in the past 14 days. - Social history:: Smoking status: Patient/guardian denies using tobacco. - Family history:: not pertinent. - Ebola Screening: : Patient denies travel to an Ebola-affected area in the 21 days before illness onset. ROS: 17:13 Constitutional: Negative for fever, chills, and weight loss, Eyes: Negative for injury, adilia pain, redness, and discharge, ENT: Negative for injury, pain, and discharge, Neck: Negative for injury, pain, and swelling, Cardiovascular: Negative for chest pain, palpitations, and edema, Abdomen/GI: Negative for abdominal pain, nausea, vomiting, diarrhea, and constipation, Back: Negative for injury and pain, : Negative for injury, bleeding, discharge, and swelling, MS/Extremity: Negative for injury and deformity, Skin: Negative for injury, rash, and discoloration, Neuro: Negative for headache, weakness, numbness, tingling, and seizure, Psych: Negative for depression, anxiety, suicide ideation, homicidal ideation, and hallucinations, Allergy/Immunology: Negative for hives, rash, and allergies, Endocrine: Negative for neck swelling, polydipsia, polyuria, polyphagia, and marked weight changes, Hematologic/Lymphatic: Negative for swollen nodes, abnormal bleeding, and unusual bruising. 17:13 Respiratory: Positive for shortness of breath. Exam: 17:13 Constitutional: This is a well developed, well nourished patient who is awake, alert, adilia and in no acute distress. Head/Face: Normocephalic, atraumatic. Eyes: Pupils equal round and reactive to light, extra-ocular motions intact. Lids and lashes normal. Conjunctiva and sclera are non-icteric and not injected. Cornea within normal limits. Periorbital areas with no swelling, redness, or edema. ENT: Nares patent. No nasal discharge, no septal abnormalities noted. Tympanic membranes are normal and external auditory canals are clear. Oropharynx with no redness, swelling, or masses, exudates, or evidence of obstruction, uvula midline. Mucous membranes moist. Neck: Trachea midline, no thyromegaly or masses palpated, and no cervical lymphadenopathy. Supple, full range of motion without nuchal rigidity, or vertebral point tenderness. No Meningismus. Chest/axilla: Normal chest wall appearance and motion. Nontender with no deformity. No lesions are appreciated. Cardiovascular: Regular rate and rhythm with a normal S1 and S2. No gallops, murmurs, or rubs. Normal PMI, no JVD. No pulse deficits. Abdomen/GI: Soft, non-tender, with normal bowel sounds. No distension or tympany. No guarding or rebound. No evidence of tenderness throughout. Back: No spinal tenderness. No costovertebral tenderness. Full range of motion. Skin: Warm, dry with normal turgor. Normal color with no rashes, no lesions, and no evidence of cellulitis. MS/ Extremity: Pulses equal, no cyanosis. Neurovascular intact. Full, normal range of motion. Neuro: Awake and alert, GCS 15, oriented to person, place, time, and situation. Cranial nerves II-XII grossly intact. Motor strength 5/5 in all extremities. Sensory grossly intact. Cerebellar exam normal. Normal gait. Psych: Awake, alert, with orientation to person, place and time. Behavior, mood, and affect are within normal limits. 17:13 Respiratory: the patient does not display signs of respiratory distress, Respirations: normal, Breath sounds: decreased breath sounds, that are mild, are heard in the right upper lobe, right middle lobe, right lower lobe, right posterior upper lobe, right posterior middle lobe and right posterior lower lobe. Vital Signs: 16:52 BP 179 / 94; Pulse 73; Resp 18; Temp 97.2; Pulse Ox 100% on R/A; Weight 101.15 kg (R); aj1 Height 5 ft. 0 in. (152.40 cm) (R); Pain 10/10; 18:05 BP 160 / 68; Pulse 63; Resp 18; Pulse Ox 99% on R/A; Pain 10/10; em 19:00 BP 178 / 97; Pulse 67; Resp 16; Pulse Ox 100% on 2 lpm NC; jb4 20:00 BP 167 / 76; Pulse 67; Resp 14; Pulse Ox 100% on 2 lpm NC; jb4 20:30 BP 151 / 76; Pulse 58; Resp 16; Pulse Ox 97% on R/A; jb4 16:52 Body Mass Index 43.55 (101.15 kg, 152.40 cm) [facility] MDM: 17:02 Patient medically screened. [facility] 17:18 Data reviewed: vital signs, nurses notes, lab test result(s), EKG, radiologic studies. 05/27 17:12 Order name: Basic Metabolic Panel 05/27 17:12 Order name: CBC with Diff 05/27 17:12 Order name: LFT's 05/27 17:12 Order name: Magnesium 05/27 17:12 Order name: NT PRO-BNP 05/27 17:12 Order name: PT-INR 05/27 17:12 Order name: Troponin (emerg Dept Use Only) [facility] 05/27 17:12 Order name: Lipase [facility] 05/27 17:12 Order name: Urine Culture [facility] 05/27 17:55 Order name: CBC with Automated Diff; Complete Time: 18:01 EDTN 05/27 18:03 Order name: Protime (+INR); Complete Time: 18:06 EDTN 05/27 18:17 Order name: Basic Metabolic Panel; Complete Time: 18:26 EDTN 05/27 18:17 Order name: Liver (Hepatic) Function; Complete Time: 18:26 EDTN 05/27 18:18 Order name: Troponin (Emerg Dept Use Only); Complete Time: 18:26 EDTN 05/27 17:12 Order name: XRAY Chest (1 view) [facility] 05/27 17:12 Order name: EKG; Complete Time: 17:15 [facility] 05/27 18:18 Order name: NT PRO-BNP; Complete Time: 18:26 EDTN 05/27 18:18 Order name: Magnesium; Complete Time: 18:26 [facility] 05/27 18:18 Order name: Lipase; Complete Time: 18:26 [facility] 05/27 18:28 Order name: CT Chest Wo Con [facility] 05/27 18:32 Order name: CT Stone Protocol [facility] 05/27 20:21 Order name: Urine Dipstick--Ancillary (enter results) [facility] 05/27 17:12 Order name: Cardiac monitoring; Complete Time: 17:49 [facility] 05/27 17:12 Order name: EKG - Nurse/Tech; Complete Time: 17:49 [facility] 05/27 17:12 Order name: IV Saline Lock; Complete Time: 17:49 [facility] 05/27 17:12 Order name: Labs collected and sent; Complete Time: 17:49 [facility] 05/27 17:12 Order name: O2 Per Protocol; Complete Time: 17:49 [facility] 05/27 17:12 Order name: O2 Sat Monitoring; Complete Time: 17:49 [facility] 05/27 17:12 Order name: Urine Dipstick-Ancillary (obtain specimen); Complete Time: 20:45 [facility] Administered Medications: 18:38 Drug: Aspirin Chewable Tablet 324 mg Route: PO; em 19:51 Follow up: Response: No adverse reaction jb4 18:40 Drug: Lasix 40 mg Route: IVP; Site: left antecubital; em 19:51 Follow up: Response: No adverse reaction jb4 18:42 Drug: Pepcid 20 mg Route: IVP; Site: left antecubital; em 19:50 Follow up: Response: No adverse reaction jb4 19:14 Drug: Lovenox 90 mg Route: Sub-Q; Site: left lower abdomen; jb4 19:44 Follow up: Response: No adverse reaction jb4 19:20 Drug: Zofran 4 mg Route: IVP; Site: left antecubital; jb4 19:44 Follow up: Response: No adverse reaction jb4 19:22 Drug: fentaNYL (PF) 25 mcg {Note: Rass score 0.} Route: IVP; Site: left antecubital; jb4 19:43 Follow up: Response: No adverse reaction; Pain is unchanged, physician notified; RASS: 4 Alert and Calm (0) 19:42 Drug: fentaNYL (PF) 25 mcg {Note: Rass score 0.} Route: IVP; Site: left antecubital; jb4 20:03 Follow up: Response: No adverse reaction; Pain is decreased; RASS: Alert and Calm (0) jb4 19:59 Drug: Rocephin 1 grams Route: IV; Rate: per protocol; Site: left antecubital; jb4 20:03 Follow up: Response: No adverse reaction; IV Status: Completed infusion; IV Intake: [id number] Disposition: 05/27/19 18:31 Hospitalization ordered by Bruno Drake for Inpatient Admission. Preliminary diagnosis are Dyspnea, Unspecified combined systolic (congestive) and diastolic (congestive) heart failure, Essential (primary) hypertension, Unspecified kidney failure - insufficency. - Bed requested for Telemetry/MedSurg (Inpatient). - Status is Inpatient Admission. jb4 - Condition is Fair. - Problem is new. - Symptoms have improved. Signatures: Dispatcher [employer] Bettie Diaz RN RN aj1 Webb, Martha RN Roberto Cornejo MD MD cha Munoz, Edgar, RN RN em Bryson, James, RN RN jb4 Corrections: (The following items were deleted from the chart) 19:51 18:31 Hospitalization Ordered by Bruno Drake MD for Inpatient Admission. Preliminary diagnosis is Dyspnea; Unspecified combined systolic (congestive) and diastolic (congestive) heart failure; Essential (primary) hypertension; Unspecified kidney failure - insufficency. Bed requested for Telemetry/MedSurg (Inpatient). Status is Inpatient Admission. Condition is Fair. Problem is new. Symptoms have improved. adilia 20:48 19:51 05/27/2019 18:31 Hospitalization Ordered by Bruno Drake MD for Inpatient jb4 Admission. Preliminary diagnosis is Dyspnea; Unspecified combined systolic (congestive) and diastolic (congestive) heart failure; Essential (primary) hypertension; Unspecified kidney failure - insufficency. Bed requested for Telemetry/MedSurg (Inpatient). Status is Inpatient Admission. Condition is Fair. Problem is new. Symptoms have improved. mw
--- NOTE | 2019-05-27 18:32 | ER ---
Nurse's Notes [facility] Name: Emeli Perez Age: 63 yrs Sex: Female : 1955 Arrival Date: 05/27/2019 Time: 16:43 Bed 8 Private MD: William Uribe Diagnosis: Dyspnea;Unspecified combined systolic (congestive) and diastolic (congestive) heart failure;Essential (primary) hypertension;Unspecified kidney failure-insufficency Presentation: 05/27 16:47 Presenting complaint: Patient states: Shortness of breath for the past week, today aj1 while she was in the kitchen she started to feel dizzy. Reports cough, congestion. Denies fever. Denies chest pain. Transition of care: patient was not received from another setting of care. Onset of symptoms was May 2019. Risk Assessment: Do you want to hurt yourself or someone else? Patient reports no desire to harm self or others. Initial Sepsis Screen: Does the patient meet any 2 criteria? No. Patient's initial sepsis screen is negative. Does the patient have a suspected source of infection? Yes: Productive cough/pneumonia. Care prior to arrival: None. 16:47 Method Of Arrival: Wheelchair aj1 16:47 Acuity: CORNELIA 3 aj1 Triage Assessment: 16:52 General: Appears in no apparent distress. comfortable, Behavior is calm, cooperative, aj1 appropriate for age. Pain: Complains of pain in back. Neuro: Level of Consciousness is awake, alert, obeys commands. Cardiovascular: Patient's skin is warm and dry. Respiratory: Reports shortness of breath at rest Airway is patent Respiratory effort is even, unlabored, Respiratory pattern is regular, symmetrical, Onset: The symptoms/episode began/occurred gradually, the patient has mild shortness of breath. Historical: - Allergies: 16:52 Codeine; aj1 16:52 Morphine; aj1 16:52 PENICILLINS; aj1 - Home Meds: 16:52 Allopurinol Oral [Active]; alprazolam 0.5 mg Oral tab [Active]; atenolol 50 mg Oral tab aj1 [Active]; clonidine HCl 0.2 mg Oral tab 1 tab once daily [Active]; furosemide 40 mg Oral tab [Active]; gabapentin 300 mg Oral cap [Active]; new blood pressure med [Active]; Hydrocodone-Acetaminophen 5/500 Oral [Active]; simvastatin 40 mg Oral tab for Hyperlipidemia [Active]; - PMHx: 16:52 Arthritis; CHF; Gout; Hyperlipidemia; Hypertension; aj1 - Immunization history:: Flu vaccine is not up to date. - Coronavirus screen:: The patient has NOT traveled to [place] in the past 14 days. - Social history:: Smoking status: Patient/guardian denies using tobacco. - Family history:: not pertinent. - Ebola Screening: : Patient denies travel to an Ebola-affected area in the 21 days before illness onset. Screenin:04 Abuse screen: Denies threats or abuse. Nutritional screening: No deficits noted. em Tuberculosis screening: No symptoms or risk factors identified. Fall Risk None identified. Assessment: 17:20 General: Appears in no apparent distress. comfortable, Behavior is calm, cooperative, em appropriate for age, Denies fever. Pain: Complains of pain in right calf and left calf Pain currently is 10 out of 10 on a pain scale. Pain began years ago. Neuro: Level of Consciousness is awake, alert, obeys commands, Oriented to person, place, time, situation, Appropriate for age. Cardiovascular: Reports shortness of breath, Denies chest pain, Capillary refill < 3 seconds Patient's skin is warm and dry. Rhythm is sinus rhythm. Respiratory: Reports shortness of breath on exertion Airway is patent Respiratory effort is even, unlabored, Respiratory pattern is regular, symmetrical, Breath sounds are diminished in right posterior upper lobe, right posterior middle lobe and right posterior lower lobe Onset: The symptoms/episode began/occurred 2 weeks. GI: Patient currently denies nausea, vomiting. Derm: Skin is intact, is healthy with good turgor, Skin is pink, warm \T\ dry. Musculoskeletal: Capillary refill < 3 seconds, Range of motion: intact in all extremities. 17:55 Reassessment: placed on 2 L via NC. em 18:24 Reassessment: Patient appears in no apparent distress at this time. Patient and/or em family updated on plan of care and expected duration. Pain level reassessed. Patient is alert, oriented x 3, equal unlabored respirations, skin warm/dry/pink. states oxygen has helped slightly Patient states feeling better. Patient states symptoms have improved. 18:43 Reassessment: Patient appears in no apparent distress at this time. wheeled to CT via em stretcher. 19:05 Reassessment: pt came back from CT and when pt was moved, pt was in severe back pain, em pt reports hx of back pain, provider notified. 19:05 Reassessment: Patient appears in no apparent distress at this time. Patient and/or jb4 family updated on plan of care and expected duration. Pain level reassessed. Patient is alert, oriented x 3, equal unlabored respirations, skin warm/dry/pink. PT verbalized pain to her lower back that is 10/10, verbalized being able to take Fentanyl. Provider notified, see MAR for orders. 20:03 Reassessment: Patient appears in no apparent distress at this time. Patient and/or jb4 family updated on plan of care and expected duration. Pain level reassessed. Patient is alert, oriented x 3, equal unlabored respirations, skin warm/dry/pink. Patient states feeling better. Patient states symptoms have improved. 20:45 Reassessment: Patient appears in no apparent distress at this time. Patient and/or jb4 family updated on plan of care and expected duration. Pain level reassessed. Patient is alert, oriented x 3, equal unlabored respirations, skin warm/dry/pink. Vital Signs: 16:52 BP 179 / 94; Pulse 73; Resp 18; Temp 97.2; Pulse Ox 100% on R/A; Weight 101.15 kg (R); aj1 Height 5 ft. 0 in. (152.40 cm) (R); Pain 10/10; 18:05 BP 160 / 68; Pulse 63; Resp 18; Pulse Ox 99% on R/A; Pain 10/10; em 19:00 BP 178 / 97; Pulse 67; Resp 16; Pulse Ox 100% on 2 lpm NC; jb4 20:00 BP 167 / 76; Pulse 67; Resp 14; Pulse Ox 100% on 2 lpm NC; jb4 20:30 BP 151 / 76; Pulse 58; Resp 16; Pulse Ox 97% on R/A; jb4 16:52 Body Mass Index 43.55 (101.15 kg, 152.40 cm) aj1 ED Course: 16:43 Patient arrived in ED. mr 16:43 William Uribe DO is Private Physician. mr 16:51 Triage completed. aj1 16:52 Arm band placed on Patient placed in an exam room. aj1 17:02 Roberto Still MD is Attending Physician. adilia 17:04 Nolberto Warren, RN is Primary Nurse. em 17:04 Patient has correct armband on for positive identification. Placed in gown. Bed in low em position. Call light in reach. pvc monitor on. Pulse ox on. NIBP on. 17:30 Lights dimmed. non skid socks placed on pt Warm blanket given. em 17:30 EKG done, by ED staff, reviewed by Roberto Still MD. em 17:45 Initial lab(s) drawn, by mo, sent to lab. Inserted saline lock: 22 gauge in left em antecubital area, using aseptic technique. Blood collected. 18:29 Bruno Drake MD is Hospitalizing Provider. adilia 18:53 CT completed. Patient tolerated procedure well. Patient moved back from CT. bq 20:30 No provider procedures requiring assistance completed. Patient admitted, IV remains in jb4 place. Administered Medications: 18:38 Drug: Aspirin Chewable Tablet 324 mg Route: PO; em 19:51 Follow up: Response: No adverse reaction jb4 18:40 Drug: Lasix 40 mg Route: IVP; Site: left antecubital; em 19:51 Follow up: Response: No adverse reaction jb4 18:42 Drug: Pepcid 20 mg Route: IVP; Site: left antecubital; em 19:50 Follow up: Response: No adverse reaction jb4 19:14 Drug: Lovenox 90 mg Route: Sub-Q; Site: left lower abdomen; jb4 19:44 Follow up: Response: No adverse reaction 4 19:20 Drug: Zofran 4 mg Route: IVP; Site: left antecubital; jb4 19:44 Follow up: Response: No adverse reaction 4 19:22 Drug: fentaNYL (PF) 25 mcg {Note: Rass score 0.} Route: IVP; Site: left antecubital; 4 19:43 Follow up: Response: No adverse reaction; Pain is unchanged, physician notified; RASS: [facility] Alert and Calm (0) 19:42 Drug: fentaNYL (PF) 25 mcg {Note: Rass score 0.} Route: IVP; Site: left antecubital; [facility] 20:03 Follow up: Response: No adverse reaction; Pain is decreased; RASS: Alert and Calm (0) jb4 19:59 Drug: Rocephin 1 grams Route: IV; Rate: per protocol; Site: left antecubital; jb4 20:03 Follow up: Response: No adverse reaction; IV Status: Completed infusion; IV Intake: 29mgos1 Intake: 20:03 IV: 10ml; Total: 10ml. jb4 Outcome: 18:31 Decision to Hospitalize by Provider. adilia 20:30 Admitted to Med/surg accompanied by tech, via wheelchair, room 213, with oxygen, with jb4 chart, Report called to BRANDIN Moreno 20:30 Condition: stable 20:30 Discharge instructions given to patient, family, Instructed on the need for admit, Demonstrated understanding of instructions. 20:48 Patient left the ED. jb4 Signatures: Bettie Lr RN RN Roberto Campos MD MD cha Rivera, Mary mr Whitney Fernandez Edgar, RN RN em Bryson, James, RN RN jb4
[2019-05-27] MEDS ORDERED: FENTANYL CITR 100 MCG/2 ML ONE (19:20)
[2019-05-27] MEDS ORDERED: ONDANSETRON 4 MG/2 ML VIAL ONE (19:20)
--- NOTE | 2019-05-27 19:39 | RAD REPORT ---
EXAM DESCRIPTION: CT - Chest Abd Pelvis Wo Con - 05/27/2019 6:56 pm CLINICAL HISTORY: dyspnea, cough and congestion, abdominal pain COMPARISON: Chest For Pe Angio dated 12/03/2018; Chest Single View dated 05/27/2019; Head C Spine Cap Wo Con dated 06/05/2017 TECHNIQUE: During dynamic enhancement using 100 milliliters nonionic IV contrast, axial 5 millimeter thick images of the chest, abdomen and pelvis were obtained. Biphasic technique was utilized through the abdomen. Oral contrast was administered. All CT scans are performed using dose optimization technique as appropriate and may include automated exposure control or mA/KV adjustment according to patient size. FINDINGS: Prominent thyroid gland noted. This is more pronounced on the left. This is similar to the prior study. This may be an enlarged gland or thyroid nodularity. Thyroid gland is not fully assesse d on this study. No focal mass or consolidation. Interstitial markings are prominent. Mild cardiomegaly is present. No pericardial thickening or effusion. No pneumothorax or pleural effusion. No chest wall mass or abno rmal axillary lymphadenopathy seen. Small nonspecific mediastinal lymph nodes are present. The liver, spleen and pancreas show no significant findings. Cholecystectomy clips are present. No b iliary tree dilatation. No hydronephrosis present. No obstructing or nonobstructing calculi. Vascular calcifications are pres ent. Urinary bladder is only partially filled. Left lateral wall of the urinary bladder is mildly thi ckened. This is not substantially different than the 2018 study. No adrenal abnormalities. No bladde r calculus. Uterus is absent. Pelvic floor prolapse is present similar to prior study. No dilated bowel loops or focal ball bowel wall thickening. No free air, free fluid or inflammatory stranding. No mass or bulky lymphadenopathy. Extensive degenerative and postsurgical changes are pre sent in the spine. Left lateral fat only hernia is present with between the oblique musculature and t he iliac crest. Left inguinal fat only hernia also present. Prominent vascular calcifications are present. IMPRESSION: Prominent interstitial markings and prominent heart size. Mild failure or volume overloa d suspected. No acute finding of the abdomen or pelvis. Nonacute findings are detailed in the body of the report. No substantial change noted from May 14.
[2019-05-27] MEDS ORDERED: CEFTRIAXONE/SWI 1gm 1 GM/10 ML SYR ONE (19:58)
[2019-05-27 20:58] VITALS: BMI 43.0
[2019-05-27] MEDS: FUROSEMIDE 40 MG/4 ML VIAL IV SCH (21:00)
[2019-05-27 21:04] VITALS: O2SAT 97
[2019-05-27 21:12] LABS: Urine Blood TRACE (NEG); Urine Glucose NEGATIVE (NEG); Urine Protein TRACE (NEG); Urine pH 5.5 (5.0-7.0)
[2019-05-27] MEDS ORDERED: ALPRAZOLAM 0.5 MG TABLET PO PRN (22:49)
[2019-05-27] MEDS ORDERED: cloNIDine HCL 0.1 MG TAB PO PRN (23:00)
[2019-05-27] MEDS: HYDROCODONE/APAP 7.5/325 MG TAB PO SCH (23:30)
[2019-05-28] MEDS ORDERED: HYDRALAZINE HCL 20 MG/ML VIAL IV PRN (00:06)
[2019-05-28 01:10] LABS: Potassium 4.1 mmol/L (3.5-5.1); Thyroid Stimulating Hormone 0.509 uIU/mL (0.360-3.740); Troponin I 0.09 ng/mL (0.0-0.045)
--- NOTE | 2019-05-28 06:21 | EKG ---
Test Date: 2019-05-27 Test Time: 17:30:18 [employer]: PANCHO MEASUREMENT RESULTS: Intervals: Rate: 69 MA: 142 QRSD: 94 QT: 404 QTc: 432 [place]: P: 34 MA: 142 QRS: -12 T: 126 INTERPRETIVE STATEMENTS: Normal sinus rhythm Possible Left atrial enlargement Left ventricular hypertrophy with repolarization abnormality Abnormal ECG Compared to ECG 12/02/2018 22:51:12 Early repolarization now present Sinus bradycardia no longer present ST (T wave) deviation no longer present Possible ischemia no longer present Electronically Signed On 05-28-19 06:20:09 MECHANICAL ADJUSTER by Ry Peña
[2019-05-28] MEDS: HYDROCODONE/APAP 7.5/325 MG TAB PO SCH ×2 (08:05→13:33)
[2019-05-28] MEDS: FUROSEMIDE 40 MG/4 ML VIAL IV SCH (08:06)
[2019-05-28] MEDS: GABAPENTIN 300 MG CAP PO SCH ×2 (08:06→13:33)
--- NOTE | 2019-05-28 08:14 | P.HP ---
Certification for Inpatient Patient admitted to: Inpatient With expected LOS: >2 Midnights Patient will require the following post-hospital care: None Practitioner: I am a practitioner with admitting privileges, knowledge of patient current condition, hospital course, and medical plan of care. Services: Services provided to patient in accordance with Admission requirements found in Title 42 Section 412.3 of the Code of Federal Regulations Patient History Date of Service: 05/27/19 Reason for admission: shortness of breath History of Present Illness: Patient is a 63-year-old female who came to the hospital with difficulty breathing. She has not been feeling well for the last few days. She has a history of congestive heart failure and she sees local Cardiology. She was in the hospital a couple of years ago for a vasovagal reaction and she was found to have carotid artery stenosis of 70%. She comes in with shortness of breath and chest x-ray revealed pulmonary edema. She will be admitted for CHF exacerbation. Incidentally she did have a couple of episodes on the floor of a sinus pause. We will notify cardiology as patient is asymptomatic at this time. We will hold off on any medications that may slow her heart rate. We will DC her beta-dany and we need to hold off on giving her p.r.n. clonidine at this time. Further workup per Cardiology. She will need inpatient admission. Allergies codeine [Codeine] Allergy (Verified 05/27/19 21:04) Itching/Hives/Rash morphine Allergy (Verified 05/27/19 21:04) Itching/Hives/Rash Penicillins Allergy (Verified 05/27/19 21:04) Itching/Hives/Rash Home Medications: ALPRAZolam [Alprazolam] 0.5 mg PO TIDP PRN 12/03/18 Clonidine HCl [Catapres*] 0.2 mg PO TIDP PRN 12/03/18 Gabapentin 300 mg PO TID 12/03/18 Hydrocodone/Acetaminophen [Hydrocodone-Acetamin 7.5-325] 1 tab PO TID 12/03/18 Simvastatin 40 mg PO BEDTIME 12/03/18 nadoloL [Nadolol] 20 mg PO DAILY 12/03/18 Furosemide [Lasix] 40 mg PO BID #30 tablet 12/04/18 Allopurinol 1 tab PO DAILY 05/27/19 - Past Medical/Surgical History Has patient received pneumonia vaccine in the past: No Diabetic: No -: Chronic renal disease, Nephrology-Dr. Uribe -: Gout -: Obesity -: CHF, Cardiology-Dr. Luque -: Hyperlipidemia -: Anemia -: Anxiety -: Chronic back pain -: Previous neck fusion -: Previous back fusion -: Back surgeries -: Cholecystectomy -: Appendectomy -: Hysterectomy Psychosocial/ Personal History: She is currently . Has 2 children. Has 9 grandchildren. She does not work. - Family History Father Medical History: Heart disease Mother Medical History: Heart disease - Social History Smoking Status: Never smoker Alcohol use: No CD- Drugs: No Caffeine use: No Place of Residence: Home Review of Systems 10-point ROS is otherwise unremarkable Physical Examination - Vital Signs Temperature: 97.0 F Blood Pressure: 130/57 Pulse: 63 Respirations: 18 Pulse Ox (%): 100 - Physical Exam General: Alert, In no apparent distress, Oriented x3 HEENT: Atraumatic, PERRLA, Mucous membr. moist/pink, EOMI, Sclerae nonicteric Neck: Supple, 2+ carotid pulse no bruit, No LAD, Without JVD or thyroid abnormality Respiratory: Clear to auscultation bilaterally, Normal air movement Cardiovascular: Regular rate/rhythm, Normal S1 S2, Systolic murmur Gastrointestinal: Normal bowel sounds, Soft and benign, Non-distended, No tenderness Musculoskeletal: No clubbing, No swelling, No tenderness Integumentary: No rashes Neurological: Normal gait, Normal speech, Normal strength at 5/5 x4 extr, Normal tone, Sensation intact, Cranial nerves 3-12 intact, Normal affect Lymphatics: No axilla or inguinal lymphadenopathy - Studies Laboratory Data (last 24 hrs) 05/27/19 17:45: PT 12.2, INR 1.04 05/27/19 17:45: WBC 10.3, Hgb 11.7 L, Hct 37.5, Plt Count 417 H 05/27/19 17:45: Sodium 142, Potassium 4.1, BUN 19 H, Creatinine 1.35 H, Glucose 118 H, Magnesium 2.1, Total Bilirubin 0.3, AST 16, ALT 19, Alkaline Phosphatase 237 H, Lipase 137 Assessment & Plan - Problems (Diagnosis) (1) Sinus pause Current Visit: Yes Status: Acute (2) Acute on chronic diastolic heart failure Current Visit: No Status: Acute (3) Chronic kidney disease, stage 3 Current Visit: No Status: Acute (4) Carotid artery stenosis Current Visit: Yes Status: Acute - Plan 1. Echocardiogram Along with a carotid Doppler; monitor on telemetry 2. hydralazine and nitro for blood pressure control 3. We will hold Beta dany as patient has had sinus pauses 4. Cardiology consultation 5. Gentle diuresis 6. Strict I's and O's 7. Repeat CXR 8. Daily weights 9. Education regarding diet and treatment of congestive heart failure Discharge Plan: Home Plan to discharge in: Greater than 2 days - Advance Directives Does patient have a Living Will: No Does patient have a Durable POA for Healthcare: No - Code Status/Comfort Care Code Status Assessed: Yes Code Status: Full Code Critical Care: No Time Spent Managing PTS Care (In Minutes): 45
[2019-05-28] MEDS ORDERED: ENOXAPARIN 40 MG/0.4 ML SQ SCH (09:00)
[2019-05-28] MEDS ORDERED: allopurinoL 300 MG TAB PO SCH (09:00)
[2019-05-28] MEDS ORDERED: nadoloL 40 MG TAB PO SCH (09:00)
--- NOTE | 2019-05-28 10:55 | CON ---
Chief Complaint: Dizziness, shortness of breath, generalized feeling of bad, history of syncope. History Of Present Illness: The patient had vague complaints and was placed in the hospital. She wa s not having any chest pain, but there was shortness of breath. She has a history of syncope 2 years ago that was undiagnosed. She has a history of hypertension. 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 She had severe blood loss and would not be considered to be tolerant of any blood thinners at this point. She had an EKG on arrival that did no t show infarction, injury, or ischemia. There was sinus bradycardia and left ventricular hypertrophy with repolarization abnormality. She has had a CT of the chest, abdomen and pelvis and the radiolog ist thought there was mild heart failure or volume overload possible. Her chest x-ray does not show findings typical of that. There is no infiltrate or mass and overnight the patient has had pauses in her heart rhythm that seems to be sinus arrest, not heart block. The patient takes nadolol 20 mg on ce a day. This is a rather low dose of very long-acting beta dany, but I am not confident that if we stop that she would stop having these pauses and I think she needs to be evaluated and place for a pacemaker could be given. Medications: Outpatient medications have been nadolol 20, hydrocodone, gabapentin, simvastatin, alpr azolam, clonidine, furosemide, and allopurinol. Physical Examination: Vital Signs: 5 feet tall, 220 pounds. General: Alert, oriented, pleasant, not in distress. Lungs: Clear. Heart: Exam within normal limits. Presently her heart rate is 63, blood pressure 130/57, O2 saturat ion 100% on room air. Impression: The patient has severe sinus node dysfunction leading to syncope, near-syncope, dyspnea. I think the patient should be transferred to [facility] under the care of Dr. Domingo Hernandez where she could have a pacemaker. There may be an indication to do a stress test at some point or he art catheterization, but we are going to start the process of transferring today, see if we can arran ge for a transfer and have all those tests done up at [facility]. Thank you very much for your kind referral of Ms. Perez. I will follow her with you. NICHOLE/GOLDIE Voice ID: [id number] Report ID: [id number]
[2019-05-28 13:30] VITALS: BP 189/89; TEMP 97.3
[2019-05-28] MEDS ORDERED: ATORVASTATIN 20 MG TAB PO SCH (21:00)
--- NOTE | 2019-05-29 00:58 | DS ---
Date of Discharge: 05/28/2019 Discharge Diagnoses: 1.Dyspnea on exertion. 2.Sick sinus syndrome. 3.Near syncope. 4.Lkhmd-[id number] diastolic heart failure. 5.Chronic renal insufficiency. 6.Peripheral vascular disease. 7.Hypertension. 8.Overweight. 9.Hyperlipidemia. 10.Gout. Procedure: CT abdomen, pelvis, chest done in the emergency room showed prominent interstitial markin g and prominent heart size, mild failure and volume overloaded. No acute abdomen. Consult: Cardiology, Dr. Peña. History Of Present Illness: Please refer to Dr. Drake's admission note last night. Hospital Course: Initially, patient presented to the hospital with progressive shortness of breath, near syncope. Patient is known to have history of heart failure as well as carotid artery stenosis. Chest x-ray showed pulmonary edema. Patient was admitted for CHF exacerbation. While patient was o n the floor, patient have sinus pause a couple times and Cardiology consult requested. Dr. Peña ev aluated the patient and thought she had probably sick sinus syndrome, and he suggested patient be tra nsferred to [facility] in [place] to be evaluated for pacemaker placement as well as possible stress testing and heart catheterization. The patient was extubated today and she will be transferr ed as she is relatively stable. She is sitting on the bed of side currently without any complaint. Discharge Condition: Serious. Discharge Activity: Bedrest. Discharge Diet: Cardiac. Discharge Medications: None at this point. That will be determined after discharge from [facility]. Discharge Physical Examination: Vital Signs: Blood pressure is 130/57, respiratory rate 18, pulse 6 3, temperature 97. General: Patient is alert and oriented x3. Does not look in any distress. HEENT: Atraumatic, normocephalic. PERRLA. Oral mucosa moist. Neck: Supple. No JVD. No carotid bruits. Chest: Clear to auscultation. Good air entry. Heart: Regular rate and rhythm. S1, S2 normal. No gallop or murmur. Abdomen: Soft, nontender. No masses. No hepatosplenomegaly. Positive bowel sounds. Obese. Extremities: No clubbing, cyanosis, or edema. No calf tenderness. Neurologic: Grossly intact. MT/MODL Voice ID: [id number] Report ID: [id number]
== END 2019-05-28 13:48 | disposition short-term general hospital (02) | DRG 291 ==
LOC: ER 16:40 → 2ND 20:21
PROVIDERS: ADMIT Hospitalist; ATTEND Hospitalist
DX: I13.0 Hypertensive heart and chronic kidney disease with heart failure and stage 1 through stage 4 chronic kidney disease, or unspecified chronic kidney disease (principal); I50.33 Acute on chronic diastolic (congestive) heart failure; Z68.41 Body mass index [BMI] 40.0-44.9, adult; N18.3 Chronic kidney disease, stage 3 (moderate); I49.5 Sick sinus syndrome; I65.29 Occlusion and stenosis of unspecified carotid artery; I73.9 Peripheral vascular disease, unspecified; E78.5 Hyperlipidemia, unspecified; M10.9 Gout, unspecified; Z88.0 Allergy status to penicillin; E66.3 Overweight
CPT/HCPCS: 36415; 71045; 71250; 74176; 80048; 80076; 81003; 83690; 83735; 83880; 84439; 84443; 84484; 85025; 85610; 87086; 87088; 93005; 96372; 96374; 96375; 99285; J0360; J0696; J1650; J1940; J2405; J3010

== ENCOUNTER 2019-06-09 14:41 | Emergency (ER) | payer OTHER ==
--- NOTE | 2019-06-09 16:40 | RAD REPORT ---
EXAM DESCRIPTION: US - Extremity Venous Uni Ltd - 06/09/2019 4:29 pm CLINICAL HISTORY: left arm swelling;Pain Arm pain and swelling COMPARISON: Extremity Venous Uni Ltd dated 11/01/2015 FINDINGS: Left upper extremity venous system was interrogated with Doppler technique. Normal flow, c ompressibility and augmentation was noted. There is no DVT present. IMPRESSION: No evidence of left upper extremity deep venous thrombosis.
[2019-06-09 17:03] LABS: Absolute Lymphocytes (CBC) 3.2 K/uL (0.7-4.9); Basophils % 1.4 % (0-1.3); Hematocrit 28.1 % (36.0-45.0); Lymphocytes % 28.3 % (15.3-44.8); MPV 9.1 fL (7.6-11.3); RBC Red Blood Cell Count 3.12 M/uL (3.86-4.86)
[2019-06-09 17:08] LABS: Protime INR 1.08
--- NOTE | 2019-06-09 17:08 | RAD REPORT ---
EXAM DESCRIPTION: RAD - Chest Single View - 06/09/2019 4:53 pm CLINICAL HISTORY: left arm swelling Chest pain. COMPARISON: Chest Single View dated 05/27/2019; Chest Single View dated 12/02/2018; Chest Single View dated 06/04/2017; Chest Single View dated 04/27/2017 FINDINGS: Portable technique limits examination quality. Mild to moderate bilateral pulmonary opacities are present likely representing pulmonary edema. The h eart is mildly to moderately enlarged with a pacer device present. Skin alessandra are noted. IMPRESSION: Mild CHF.
[2019-06-09 17:26] LABS: Albumin 2.9 g/dL (3.4-5.0); Bilirubin Direct 0.1 mg/dL (0-0.2); Bilirubin Total 0.2 mg/dL (0.2-1.0); Magnesium 2.1 mg/dL (1.8-2.4); Potassium 4.2 mmol/L (3.5-5.1); Protein, Total 7.8 g/dL (6.4-8.2); Troponin (Emerg Dept Use Only) 0.02 ng/mL (0.0-0.045)
[2019-06-09] MEDS ORDERED: FENTANYL CITR 100 MCG/2 ML ONE (18:33)
--- NOTE | 2019-06-09 18:34 | RAD REPORT ---
EXAM DESCRIPTION: CT - Chest For Pe Angio - 06/09/2019 5:58 pm CLINICAL HISTORY: Chest pain. left arm swelling COMPARISON: Chest Abd Pelvis Wo Con dated 05/27/2019 TECHNIQUE: CT angiogram of the pulmonary arteries was performed with MIP. All CT scans are performed using dose optimization technique as appropriate and may include automated exposure control or mA/KV adjustment according to patient size. FINDINGS: No evidence of pulmonary thromboembolism. No acute aortic finding demonstrated. Aortic atherosclerosis is prominent. Mild cardiomegaly. Mild interstitial pulmonary edema is present. No significant pericardial or pleural fluid. There is significant swelling seen of the left breast tissue with skin thickening and inflammatory ch anges extending along the left chest wall. Inferior to the left pacemaker device in the left chest wa ll a thick walled 4.6 x 2.5 cm fluid and air collection is present suspicious for abscess. IMPRESSION: No evidence of pulmonary thromboembolism. 4.6 x 2.6 cm abscess is suspected along the inferior margin of the pacemaker pack within the left perri st wall.
--- NOTE | 2019-06-09 18:55 | ER ---
Nurse's Notes [facility] Name: Emeli Perez Age: 63 yrs Sex: Female : 1955 Arrival Date: 06/09/2019 Time: 14:43 Bed 23 Private MD: William Uribe Diagnosis: Cutaneous abscess of chest wall-post pacemaker placement Presentation: 06/09 14:53 Chief complaint: Patient states: "I had a pacemaker put in on May 28 or at [facility] in [place] and now my left arm and my left breast are swollen". pt reports swelling began 2-3 days ago. Coronavirus screen: The patient has NOT traveled to [place] in the past 14 days. The patient has NOT had contact with known and/or suspected case of Coronavirus. Ebola Screen: Patient negative for fever greater than or equal to 101.5 degrees Fahrenheit, and additional compatible Ebola Virus Disease symptoms. Initial Sepsis Screen: Does the patient meet any 2 criteria? No. Patient's initial sepsis screen is negative. Does the patient have a suspected source of infection? No. Patient's initial sepsis screen is negative. Risk Assessment: Do you want to hurt yourself or someone else? Patient reports no desire to harm self or others. 14:53 Method Of Arrival: Wheelchair aa5 14:53 Acuity: CORNELIA 2 aa5 15:00 Onset of symptoms was June 08, 2019. mg2 Historical: - Allergies: 15:00 Codeine; aa5 15:00 Morphine; aa5 15:00 PENICILLINS; aa5 - Home Meds: 15:00 Allopurinol Oral [Active]; mg2 - PMHx: 15:00 Arthritis; CHF; Hyperlipidemia; Gout; Hypertension; aa5 - PSHx: 15:00 Pacemaker May 2019; aa5 - Immunization history:: Flu vaccine is not up to date. - Social history:: Smoking status: Patient denies any tobacco usage or history of. Screenin:03 Abuse screen: Denies threats or abuse. Denies injuries from another. Nutritional mg2 screening: No deficits noted. Tuberculosis screening: No symptoms or risk factors identified. Fall Risk IV access (20 points). Assessment: 15:45 Reassessment: patient in ultrasound now. mg2 17:03 General: Appears in no apparent distress. comfortable, Behavior is calm, cooperative. mg2 Pain: Denies pain. Neuro: Level of Consciousness is awake, alert, obeys commands, Oriented to person, place, time, situation. Cardiovascular: Capillary refill < 3 seconds Patient's skin is warm and dry. Respiratory: Airway is patent Respiratory effort is even, unlabored, Respiratory pattern is regular, symmetrical. GI: No signs and/or symptoms were reported involving the gastrointestinal system. : No signs and/or symptoms were reported regarding the genitourinary system. EENT: No signs and/or symptoms were reported regarding the EENT system. Derm: Skin is intact, is healthy with good turgor, Skin is pink, warm \\T\\ dry. normal. Musculoskeletal: Circulation, motion, and sensation intact. Capillary refill < 3 seconds. 19:43 Reassessment: Patient appears in no apparent distress at this time. Patient and/or mg2 family updated on plan of care and expected duration. Pain level reassessed. Patient is alert, oriented x 3, equal unlabored respirations, skin warm/dry/pink. patient was advised for transfer and she agreed. 20:50 Reassessment: Patient appears in no apparent distress at this time. Patient and/or mg2 family updated on plan of care and expected duration. Pain level reassessed. Patient is alert, oriented x 3, equal unlabored respirations, skin warm/dry/pink. 21:54 Reassessment: report given to Terra Lopez RN of [facility]. patient signed mg2 the transfer form. 22:37 Reassessment: patient in good condition. iv intact. aox4. mg2 Vital Signs: 14:53 BP 162 / 67; Pulse 70; Resp 16 S; Temp 99.2(O); Pulse Ox 98% on R/A; Weight 100.24 kg aa5 (R); Height 5 ft. 0 in. (152.40 cm) (R); Pain 7/10; 17:50 BP 122 / 78; Pulse 80; Resp 18; Pulse Ox 100% on R/A; mg2 19:42 BP 127 / 82; Pulse 67; Resp 18; Temp 97.9; Pulse Ox 100% on R/A; mg2 20:57 BP 160 / 63; Pulse 66; Resp 20; Temp 98.8(O); Pulse Ox 100% ; lt1 21:53 BP 156 / 74; Pulse 65; Resp 18; Pulse Ox 100% on R/A; mg2 14:53 Body Mass Index 43.16 (100.24 kg, 152.40 cm) aa5 ED Course: 14:43 Patient arrived in ED. rg4 14:44 William Uribe DO is Private Physician. rg4 14:53 Arm band placed on. aa5 15:00 Triage completed. aa5 15:22 Roberto Still MD is Attending Physician. adilia 15:28 Roberto Encinas PA is PHCP. cp 15:48 Shar Orellana, BRANDIN is Primary Nurse. mg2 16:29 US Extremity Venous Unilateral Ltd In Process Unspecified. EDMS 16:54 XRAY Chest (1 view) In Process Unspecified. EDMS 17:04 Patient has correct armband on for positive identification. mg2 17:04 No provider procedures requiring assistance completed. Inserted saline lock: 22 gauge mg2 in right forearm, using aseptic technique. Blood collected. 18:01 CT Chest For PE Angio In Process Unspecified. EDMS 21:53 Patient transferred, IV remains in place. mg2 Administered Medications: 19:04 Drug: fentaNYL (PF) 25 mcg Route: IVP; Site: right hand; mg2 22:38 Follow up: Response: No adverse reaction; Marked relief of symptoms mg2 19:05 Drug: Clindamycin 900 mg Route: IVPB; Infused Over: 30 mins; Site: right hand; mg2 22:37 Follow up: Response: No adverse reaction; IV Status: Completed infusion mg2 19:42 Drug: vancoMYCIN 1 grams Route: IVPB; Infused Over: 2 hrs; Site: right hand; mg2 22:38 Follow up: Response: No adverse reaction; IV Status: Completed infusion mg2 22:16 Drug: fentaNYL (PF) 25 mcg Route: IVP; Site: right hand; mg2 22:37 Follow up: Response: No adverse reaction; Marked relief of symptoms mg2 Outcome: 18:55 ER care complete, transfer ordered by . cp 22:38 Transferred by ground EMS to [facility], Transfer form completed. mg2 22:38 Condition: stable 22:38 Instructed on the need for transfer, Demonstrated understanding of instructions. 22:41 Patient left the ED. mg2 Signatures: Dispatcher [employer] EDPR Roberto Still MD MD cha Calderon, Audri RN RN aa5 Roberto Encinas PA PA cp Garcia, Rubi rg4 Shar Orellana, RN RN mg2 Radha Arreguin lt1 Corrections: (The following items were deleted from the chart) 15:01 14:53 BP 162 / 67; Pulse 70bpm; Resp 16bpm; Spontaneous; Pulse Ox 98% RA; Temp 99.2F aa5 Oral; aa5 17:54 17:30 BP 121 / 46; Pulse 118bpm; Resp 18bpm; Pulse Ox 95%; mg2 mg2
--- NOTE | 2019-06-09 18:55 | EDPHYS ---
Physician Documentation [facility] Name: Emeli Perez Age: 63 yrs Sex: Female : 1955 Arrival Date: 06/09/2019 Time: 14:43 Bed 23 Private MD: William Uribe ED Physician Roberto Still HPI: 06/09 15:40 This 63 yrs old Black Female presents to ER via Wheelchair with complaints of Breast cp Swelling, Arm Swelling. 15:40 The patient or guardian complains of pain, that is acute, swelling, tenderness. cp 15:40 The complaints affect the left anterior chest and left arm. Context: resulted from cp unknown cause. 15:40 Onset: The symptoms/episode began/occurred 3 day(s) ago. cp 15:40 Treatment prior to arrival includes: no previous treatment. Patient reports having cp pacemaker implanted at [facility] in the [facility] by DR Peck on May. Historical: - Allergies: 15:00 Codeine; aa5 15:00 Morphine; aa5 15:00 PENICILLINS; aa5 - Home Meds: 15:00 Allopurinol Oral [Active]; mg2 - PMHx: 15:00 Arthritis; CHF; Hyperlipidemia; Gout; Hypertension; aa5 - PSHx: 15:00 Pacemaker May 2019; aa5 - Immunization history:: Flu vaccine is not up to date. - Social history:: Smoking status: Patient denies any tobacco usage or history of. ROS: 15:45 Constitutional: Negative for body aches, chills, fever, poor PO intake. cp 15:45 Eyes: Negative for injury, pain, redness, and discharge. cp 15:45 ENT: Negative for drainage from ear(s), ear pain, sore throat, difficulty swallowing, difficulty handling secretions. 15:45 Cardiovascular: Positive for left upper chest swelling, Negative for palpitations. 15:45 Respiratory: Negative for cough, shortness of breath, wheezing. 15:45 Abdomen/GI: Negative for abdominal pain, nausea, vomiting, and diarrhea. 15:45 Back: Negative for pain at rest, pain with movement. 15:45 : Negative for urinary symptoms. 15:45 MS/extremity: Positive for pain, swelling, of the left arm, Negative for injury or acute deformity, paresthesias. 15:45 Skin: Negative for cellulitis, rash. 15:45 Neuro: Negative for altered mental status, dizziness, headache, syncope, weakness. 15:45 All other systems are negative. Exam: 15:55 Constitutional: The patient appears in no acute distress, alert, awake, cp non-diaphoretic, non-toxic, well developed, well nourished, uncomfortable. 15:55 Head/Face: Normocephalic, atraumatic. cp 15:55 Eyes: Periorbital structures: appear normal, Pupils: equal, round, and reactive to light and accomodation, Extraocular movements: intact throughout, Conjunctiva: normal, no exudate, no injection, Sclera: no appreciated abnormality, Lids and lashes: appear normal, bilaterally. 15:55 ENT: External ear(s): are unremarkable, Ear canal(s): are normal, clear, TM's: Nose: is normal, Mouth: Lips: moist, Oral mucosa: pink and intact, moist, Posterior pharynx: is normal, airway is patent, no erythema, no exudate, Voice: is normal. 15:55 Neck: External neck: swelling, that is mild, left lateral neck, tenderness, that is moderate, left lateral neck, ROM/movement: limited range of motion, is not appreciated, Meningeal signs: are not present, nuchal rigidity, is not appreciated. 15:55 Chest/axilla: Inspection: surgical incision left upper chest, Palpation: crepitus, is not appreciated, tenderness, that is moderate, of the anterior aspect of left upper chest, mild swelling noted. 15:55 Cardiovascular: Rate: normal, Rhythm: regular, JVD: is not appreciated. 15:55 Respiratory: the patient does not display signs of respiratory distress, Respirations: normal, no use of accessory muscles, no retractions, no splinting, no tachypnea, labored breathing, is not present, Breath sounds: bronchial sounds, that are mild, are heard diffusely, stridor, is not appreciated, wheezing: is not appreciated. 15:55 Abdomen/GI: Inspection: abdomen appears normal, Bowel sounds: active, all quadrants, Palpation: abdomen is soft and non-tender, in all quadrants, voluntary guarding, is not appreciated, involuntary guarding, is not appreciated. 15:55 Back: pain, is absent, ROM is normal. 15:55 Musculoskeletal/extremity: Extremities: grossly normal except: noted in the left arm: pain, swelling, tenderness, ROM: limited passive range of motion, in the left arm, Pulses: noted to be 2+ in the right radial artery and left radial artery, Sensation intact. 15:55 Skin: no rash present. 15:55 Neuro: Orientation: to person, place \T\ time. Mentation: is normal, Motor: moves all fours, strength is normal. 17:23 ECG was reviewed by the Attending Physician. Vital Signs: 14:53 BP 162 / 67; Pulse 70; Resp 16 S; Temp 99.2(O); Pulse Ox 98% on R/A; Weight 100.24 kg aa5 (R); Height 5 ft. 0 in. (152.40 cm) (R); Pain 7/10; 17:50 BP 122 / 78; Pulse 80; Resp 18; Pulse Ox 100% on R/A; mg2 19:42 BP 127 / 82; Pulse 67; Resp 18; Temp 97.9; Pulse Ox 100% on R/A; mg2 20:57 BP 160 / 63; Pulse 66; Resp 20; Temp 98.8(O); Pulse Ox 100% ; lt1 21:53 BP 156 / 74; Pulse 65; Resp 18; Pulse Ox 100% on R/A; mg2 14:53 Body Mass Index 43.16 (100.24 kg, 152.40 cm) aa5 MDM: 15:22 Patient medically screened. [facility] 16:00 Differential diagnosis: tendonitis, cellulitis, abscess, DVT. 19:00 Data reviewed: vital signs, nurses notes, lab test result(s), EKG, radiologic studies, cp CT scan, plain films, ultrasound. 19:00 Test interpretation: by ED physician or midlevel provider: ECG. Counseling: I had a cp detailed discussion with the patient and/or guardian regarding: the historical points, exam findings, and any diagnostic results supporting the discharge/admit diagnosis, lab results, radiology results, the need to transfer to another facility. 06/09 15:36 Order name: Basic Metabolic Panel; Complete Time: 17:32 06/09 17:35 Interpretation: Normal except: CL 110; BUN 22; CRE 1.45; GFR 44; CA 8.4. 06/09 15:36 Order name: CBC with Diff; Complete Time: 17:13 cp 02/ 17:13 Interpretation: Normal except: WBC 11.3; RBC 3.12; HGB 9.0; HCT 28.1; PLT 301; RDW cp 18.0; BASO% 1.4. 02/ 15:36 Order name: LFT's; Complete Time: 17:32 cp 02/28 18:52 Interpretation: Normal except: ALK 185; ALB 2.9; GLOB 4.9; A/G 0.6. cp 02/ 15:36 Order name: Magnesium; Complete Time: 17:32 cp 02/ 15:36 Order name: NT PRO-BNP; Complete Time: 17:32 cp 02/ 15:36 Order name: PT-INR; Complete Time: 17:13 cp 02/ 17:13 Interpretation: Abnormal: PT 12.7. cp / 15:36 Order name: Troponin (emerg Dept Use Only); Complete Time: 17:32 cp 06/09 15:36 Order name: XRAY Chest (1 view); Complete Time: 17:23 cp 06/09 15:36 Order name: US Extremity Venous Unilateral Ltd; Complete Time: 17:13 cp 06/09 15:38 Order name: CT Chest For PE Angio; Complete Time: 18:51 cp 02 18:52 Interpretation: Report reviewed. cp 06/09 18:36 Order name: Blood Culture Adult (2) cp 06/09 18:36 Order name: Procalcitonin; Complete Time: 20:23 cp 02/28 20:24 Interpretation: Reviewed. cp 06/09 18:36 Order name: Lactate; Complete Time: 19:48 cp 06/09 15:36 Order name: EKG; Complete Time: 15:37 cp 06/09 15:36 Order name: Cardiac monitoring; Complete Time: 16:55 cp 06/09 15:36 Order name: EKG - Nurse/Tech; Complete Time: 16:55 cp 06/09 15:36 Order name: IV Saline Lock; Complete Time: 16:55 cp 02 15:36 Order name: Labs collected and sent; Complete Time: 16:55 cp 06/09 15:36 Order name: O2 Per Protocol; Complete Time: 16:55 cp 06/09 15:36 Order name: O2 Sat Monitoring; Complete Time: 16:56 cp EC:23 Rate is 64 beats/min. Rhythm is regular. [place] interval is normal. QRS interval is normal. cp QT interval is normal. T waves are Flattened in leads V5, V6. Interpreted by me. Reviewed by me. Administered Medications: 19:04 Drug: fentaNYL (PF) 25 mcg Route: IVP; Site: right hand; mg2 22:38 Follow up: Response: No adverse reaction; Marked relief of symptoms mg2 19:05 Drug: Clindamycin 900 mg Route: IVPB; Infused Over: 30 mins; Site: right hand; mg2 22:37 Follow up: Response: No adverse reaction; IV Status: Completed infusion mg2 19:42 Drug: vancoMYCIN 1 grams Route: IVPB; Infused Over: 2 hrs; Site: right hand; mg2 22:38 Follow up: Response: No adverse reaction; IV Status: Completed infusion mg2 22:16 Drug: fentaNYL (PF) 25 mcg Route: IVP; Site: right hand; mg2 22:37 Follow up: Response: No adverse reaction; Marked relief of symptoms mg2 Disposition: 06/09/19 18:55 Transfer ordered to [facility]. Diagnosis is Cutaneous abscess of chest wall - post pacemaker placement. - Reason for transfer: Higher level of care. - Accepting physician is DR Kristal Mosqueda. - Condition is Stable. - Problem is new. - Symptoms have improved. Addendum: 06/11/2019 17:52 Co-signature as Attending Physician, Roberto Still MD I agree with the assessment and c rockwell plan of care. Signatures: Dispatcher [employer] Roberto Mckinney MD MD cha Calderon, Audri, RN RN aa5 Robetro Encinas PA PA cp [place], Michele, BRANDIN RN mg2 Corrections: (The following items were deleted from the chart) 06/09 17:35 17:33 Normal except: CL 110; BUN 22; CRE 1.45; GFR 44. cp cp 19:58 18:55 06/09/2019 18:55 Transfer ordered to [facility]. Diagnosis is Cutaneous cp abscess of chest wall - post pacemaker placement. Reason for transfer: Higher level of care. Accepting physician is Doctor. Condition is Stable. Problem is new. Symptoms have improved. cp 20:37 19:58 06/09/2019 18:55 Transfer ordered to [facility]. Diagnosis is Cutaneous cp abscess of chest wall - post pacemaker placement. Reason for transfer: Higher level of care. Accepting physician is DR Barbosa. Condition is Stable. Problem is new. Symptoms have improved. cp 22:41 20:37 06/09/2019 18:55 Transfer ordered to [facility]. Diagnosis is Cutaneous mg2 abscess of chest wall - post pacemaker placement. Reason for transfer: Higher level of care. Accepting physician is DR Kristal Mosqueda. Condition is Stable. Problem is new. Symptoms have improved. cp
[2019-06-09] MEDS ORDERED: VANCOMYCIN 1 GM/VIAL ONE (19:14)
[2019-06-09] MEDS ORDERED: NA CHLORIDE 0.9% 250 ML ONE (19:14)
[2019-06-09] MEDS ORDERED: CLINDAMYCIN 900MG/D5W 900 MG/50 ML IVPB IV ONE (19:15)
[2019-06-09 22:54] VITALS: O2SAT 100
[2019-06-09 22:56] VITALS: TEMP 98.8
[2019-06-09 22:57] VITALS: BP 156/74
--- NOTE | 2019-06-10 11:01 | EKG ---
Test Date: 2019-06-09 Test Time: 17:22:58 Multicultural Services Librarian: SANA MEASUREMENT RESULTS: Intervals: Rate: 64 [place]: 152 QRSD: 90 QT: 402 QTc: 414 [place]: P: 35 OH: 152 QRS: -6 T: 30 INTERPRETIVE STATEMENTS: Normal sinus rhythm Voltage criteria for left ventricular hypertrophy Nonspecific T wave abnormality Abnormal ECG Compared to ECG 05/27/2019 17:30:18 T-wave abnormality now present Early repolarization no longer present Electronically Signed On 06-10-19 10:59:51 TEAM COORDINATOR by Junaid Elizabeth
== END 2019-06-09 22:41 | disposition short-term general hospital (02) ==
LOC: ER 14:41
DX: L02.213 Cutaneous abscess of chest wall (principal); Z95.0 Presence of cardiac pacemaker; Z98.890 Other specified postprocedural states; I10 Essential (primary) hypertension; Z88.0 Allergy status to penicillin; Z88.5 Allergy status to narcotic agent
CPT/HCPCS: 96365; 93005; 87040 ×2; 85025; 80048; 36415; 83735; 87205; 85610; 80076; 83605; 84484; 84145; 83880; 71275; 71045; 93971; 96375; 99285; 96366; Q9967; J3010; J7030

== ENCOUNTER 2019-09-05 08:24 | Day surgery (SDC) | payer OTHER ==
[2019-09-01 14:22] LABS: Absolute Lymphocytes (CBC) 4.3 K/uL (0.7-4.9); Basophils % 1.1 % (0-1.3); Hematocrit 33.4 % (36.0-45.0); Lymphocytes % 43.2 % (15.3-44.8); MPV 8.9 fL (7.6-11.3)
[2019-09-01 14:30] LABS: Protime INR 1.05
[2019-09-01 14:43] LABS: Potassium 4.3 mmol/L (3.5-5.1)
[~2019-09-05 08:24] MED LIST: ACETYLCYST 20% 4 ML VIAL IH ONE; HEPA 1000U/500MLS 1,000 UNIT/500 ML BAG IV ONE; LIDOCAINE 1% MPF 30 ML VIAL ONE; NA CHLORIDE 0.9% 500 ML ONE
[2019-09-05] MEDS ORDERED: FENTANYL CITR 100 MCG/2 ML ONE ×2 (08:29→09:04)
[2019-09-05] MEDS ORDERED: HEPARIN 5000 UNIT/ML 1 ML VIAL ONE ×2 (08:29→08:31)
[2019-09-05] MEDS ORDERED: MIDAZOLAM HCL 2 MG/2 ML INJ ONE ×3 (08:29→09:03)
[2019-09-05] MEDS ORDERED: ATROPINE SULF 1 MG/10 ML SYR IV ONE (08:30)
[2019-09-05] MEDS ORDERED: NICARDIPINE HCL 25 MG/10 ML IV ONE (08:30)
--- OUTSIDE RECORDS SUMMARY | 2019-09-05 09:13 | XMS REPORT | Clinical Summary ---
:1955 Author Organization [facility] Address [address] [place] [address] Care Team Providers Name Role Phone Constance Uribe DO Primary Care Provider Allergies Active Allergy Reactions Severity Noted Date Comments Codeine Itching, Other (See 12/01/2018 Pt state s she itches Comments) Morphine Other (See Comments) 12/01/2018 Pt itch es Penicillin V Other (See Comments) 12/01/2018 Pt stat es she gets welps all over her ab domen Trazodone Other (See Comments) 12/01/2018 unknown Medications Medication Sig Dispensed Refills Start Date End Date Status simvastatin Take 1 tablet 0 11/20/2014 Act christine (ZOCOR) 40 MG by mouth. tablet furosemide Take 1 tablet 3 12/15/2018 Acti ve (LASIX) 40 mg by mouth daily. tablet ALPRAZolam TK 1 T PO TID 1 01/06/2019 Acti ve (XANAX) 0.5 MG PRF ANXIETY tablet HYDROcodone-acet Take 1 tablet 0 11/18/2018 Active aminophen by mouth 3 (NORCO) 7.5-325 (three) times a mg per tablet day. clonIDINE HCl Take 0.2 mg by 3 01/25/2019 Discontinued (CATAPRES) 0.2 mouth 2 (two) 0 ( Stop Taking at MG tablet times a day. Dischar ge) nadolol Take 1 tablet 3 12/01/2018 Disco ntinued (CORGARD) 40 MG by mouth daily. 0 (Stop Taking at tablet Discharge) gabapentin Take 1 capsule 0 11/18/2018 Dis continued (NEURONTIN) 300 by mouth. 0 (Sto p Taking at mg capsule Discharge ) allopurinoL Take 300 mg by 0 Dis continued (ZYLOPRIM) 300 mouth daily. 0 (S top Taking at MG tablet Discharge) gabapentin Take 1 capsule 90 capsule 0 06/01/2019 Ex pired (NEURONTIN) 300 (300 mg total) 0 mg capsule by mouth 3 (three) times a day for 30 days. nadoloL Take 1 tablet 30 tablet 0 06/02/2019 Disco ntinued (CORGARD) 80 MG (80 mg total) 0 (Stop Taking at tablet by mouth daily Disch arge) for 30 days. amLODIPine Take 1 tablet 30 tablet 0 06/02/2019 Disc ontinued (NORVASC) 5 mg (5 mg total) by 0 (Stop Taking at tablet mouth daily for Disc harge) 30 days. apixaban Take 10 mg by 74 tablet 0 06/12/2019 Disco ntinued (ELIQUIS) 5 mg mouth twice 0 tablet daily x7 days, then 5 mg by mouth twice daily thereafter clonIDINE HCl Take 1 tablet 30 tablet 0 06/12/2019 E xpired (CATAPRES) 0.2 (0.2 mg total) 0 MG tablet by mouth every morning for 30 days. clonIDINE Take 1 tablet 30 tablet 0 06/12/2019 Expir ed (CATAPRES) 0.1 (0.1 mg total) 0 MG tablet by mouth every evening for 30 days. apixaban Take 2 tablets 20 tablet 0 06/12/2019 Expi red (ELIQUIS) 5 mg (10 mg total) 0 tablet by mouth 2 (two) times a day for 5 days. apixaban Take 1 tablet 60 tablet 0 06/17/2019 Expir ed (ELIQUIS) 5 mg (5 mg total) by 0 tablet mouth 2 (two) times a day for 30 days. carvediloL Take 1 tablet 60 tablet 0 06/12/2019 Expi red (COREG) 6.25 MG (6.25 mg total) 0 tablet by mouth 2 (two) times a day for 30 days. doxycycline Take 1 capsule 14 capsule 0 06/12/2019 E xpired (VIBRAMYCIN) 100 (100 mg total) 0 MG capsule by mouth 2 (two) times a day with meals for 7 days. 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 Arrhythmia 05/28/2019 Cardiac arrhythmia 05/28/2019 Encounters Date Type Specialty Care Team Description 06/15/2019 Patient Outreach Quality Deny Valladares, [facility] 06/15/2019 Patient Outreach Quality Deny Valladares [facility] 06/15/2019 Patient Outreach Quality Deny Valladares, [facility] 06/15/2019 Patient Outreach Quality Shana Witt, [facility] 06/15/2019 Patient Outreach Quality Shana Witt, [facility] 06/15/2019 Patient Outreach Quality Shana Witt, [facility] 06/14/2019 Patient Outreach Quality Shana Witt RN 06/09/2019 - Hospital Encounter General Internal Jaylin, DVT o f axillary vein, 06/12/2019 Medicine Kristal Hough MD acute left (HCC) Waqar Bourgeois, (Primary Dx) DO 06/09/2019 Intake Access 05/29/2019 Surgery Procedural RolyBarbara Pacemaker [facility] Cardiology MD Navdeep new or replacem ent [[id number] (CPT)] 05/28/2019 - Hospital Encounter Cardiology Luann Garland Other ca rdiac 06/01/2019 MD Perla arrhythmia (Verna flower Dx) 05/28/2019 Intake Access 02/24/2019 Procedure visit Neurology Bettie Vega Idiopathic p eripheral neuropathy (Primary Dx); MD Mao Lumbar radiculo nikko; Lumbar radiculo nikko, right 02/24/2019 Hospital Encounter Radiology Bettie Vega Lumbar ra diculopathy MD Mao 02/14/2019 Office Visit Neurology Bettie Vega Lumbar radiculo nikko (Primary Dx); MD Mao Spinal stenosis of lumbar region with neurogenic claudication after 09/04/2018 Family History Medical History Relation Name Comments Heart attack Father Heart failure Mother Relation Name Status Comments Father Mother Social History Tobacco Use Types Packs/Day Years Used Date Former Smoker Cigarettes 0.25 15 Smokeless Tobacco: Never Used Alcohol Use Drinks/Week oz/Week Comments Yes 3-4 Glasses of wine 3.0 - 4.0 Sex Assigned at Date Recorded Not on file Job Start Date Occupation Industry Not on file Not on file Not on file Travel History Travel Start Travel End No recent travel history available. Last Filed Vital Signs Vital Sign Reading Time Taken Comments Blood Pressure 134/87 06/12/2019 2:55 PM MANUAL WRITER Pulse 76 06/12/2019 2:55 PM MANUAL WRITER Temperature 36.4 C (97.6 F) 06/12/2019 11:15 AM MANUAL WRITER Respiratory Rate 18 06/12/2019 11:15 AM MANUAL WRITER Oxygen Saturation 99% 06/12/2019 11:15 AM MANUAL WRITER Inhaled Oxygen Concentration - - Weight 110 kg (242 lb 3.2 oz) 06/11/2019 5:00 AM MANUAL WRITER Height 152.4 cm (5') 05/28/2019 5:00 PM MANUAL WRITER Body Mass Index 47.3 05/28/2019 5:00 PM MANUAL WRITER Plan of Treatment Health Maintenance Due Date Last Done Comments DIABETIC RETINAL EYE EXAM 1955 DIABETIC FOOT EXAM 09/16/1963 URINE MICROALBUMIN 09/16/1963 CERVICAL CANCER SCREENING 1974 BREAST CANCER SCREENING 09/16/2003 COLONOSCOPY SCREENING 09/16/2003 SHINGLES VACCINES (#1) 09/16/2003 65+ PNEUMOCOCCAL VACCINE (1 of 2 - PCV13) 2018 INFLUENZA VACCINE 11/11/2019 Implants Implanted Type Area Carbonating Stone Cleaner Device Shelf Model / Identifier Expiration Serial / Date Lot [place] Xt Mri - [id number] Cardiac N/A: [id number] / Implanted: 05/29/2019 at [facility] (Quantity not on file) Pacemaker N/A / Generators Lead, Pacing Active Fixation Atrial Ster oid Eluting Polyurethane 45 Centimeter Capsure Fix Nov[employer] - [id number] Cardiac Pacing N/A: 1 04/26/2020 [id number] / Implanted: 05/29/2019 at [facility] (Quantity not on file) Leads or N/A [id number] / Electrodes or [id number] Accessories Lead Pace Trnsvns Actv-Fxtn Atrl Miguel Bipolar 52cm - [id number] Cardiac Pacing N/A: [employer] [facility] - 02/24/2021 LEAD [id number] / Implanted: 05/29/2019 at [facility] (Quantity not on file) Adri ds or N/A CARDIAC RYHTYM [id number] / Electrodes or MGMT [id number] Accessories Pacemaker Pacemaker Procedures Procedure Name Priority Date/Time Associated Diagnosis Comme nts ARTERIAL BLOOD GAS STAT 06/12/2019 9:00 Resul ts for this AM MANUAL WRITER procedure are i n the results section. ESTIMATED GFR Routine 06/12/2019 2:37 Results fo r this AM MANUAL WRITER procedure are i n the results section. PHOSPHORUS LEVEL Routine 06/12/2019 2:37 Results for this AM MANUAL WRITER procedure are i n the results section. MAGNESIUM LEVEL Routine 06/12/2019 2:37 Results for this AM MANUAL WRITER procedure are i n the results section. BASIC METABOLIC PANEL Routine 06/12/2019 2:37 Re sults for this AM MANUAL WRITER procedure are i n the results section. VANCOMYCIN LEVEL, Routine 06/12/2019 2:37 Result s for this TROUGH AM MANUAL WRITER procedure are i n the results section. MANUAL DIFFERENTIAL Routine 06/12/2019 2:00 Resu lts for this AM MANUAL WRITER procedure are i n the results section. PARTIAL THROMBOPLASTIN Routine 06/12/2019 2:00 R esults for this TIME (PTT) AM MANUAL WRITER procedure are i n the results section. CBC WITH PLATELET AND Routine 06/12/2019 2:00 Re sults for this DIFFERENTIAL AM MANUAL WRITER procedure are i n the results section. OCCULT BLOOD, STOOL Routine 06/11/2019 10:26 Resu lts for this PM MANUAL WRITER procedure are i n the results section. PARTIAL THROMBOPLASTIN Routine 06/11/2019 8:04 R esults for this TIME (PTT) PM MANUAL WRITER procedure are i n the results section. US DUPLEX VENOUS UPPER STAT 06/11/2019 8:49 R esults for this EXTREMITY BILATERAL AM MANUAL WRITER procedur e are in the results section. MANUAL DIFFERENTIAL Routine 06/11/2019 3:58 Resu lts for this AM MANUAL WRITER procedure are i n the results section. ESTIMATED GFR Routine 06/11/2019 3:58 Results fo r this AM MANUAL WRITER procedure are i n the results section. PHOSPHORUS LEVEL Routine 06/11/2019 3:58 Results for this AM MANUAL WRITER procedure are i n the results section. MAGNESIUM LEVEL Routine 06/11/2019 3:58 Results for this AM MANUAL WRITER procedure are i n the results section. COMPREHENSIVE Routine 06/11/2019 3:58 Results fo r this METABOLIC PANEL AM MANUAL WRITER procedure ar e in the results section. CBC WITH PLATELET AND Routine 06/11/2019 3:58 Re sults for this DIFFERENTIAL AM MANUAL WRITER procedure are i n the results section. ESTIMATED GFR Timed 06/10/2019 4:30 Results fo r this PM MANUAL WRITER procedure are i n the results section. PHOSPHORUS LEVEL Timed 06/10/2019 4:30 Results for this PM MANUAL WRITER procedure are i n the results section. MAGNESIUM LEVEL Timed 06/10/2019 4:30 Results for this PM MANUAL WRITER procedure are i n the results section. BASIC METABOLIC PANEL Timed 06/10/2019 4:30 Re sults for this PM MANUAL WRITER procedure are i n the results section. URINALYSIS SCREEN AND Routine 06/10/2019 10:00 Re sults for this MICROSCOPY, WITH AM MANUAL WRITER procedure a re in REFLEX TO CULTURE the result s section. URINE CULTURE Routine 06/10/2019 10:00 Results fo r this AM MANUAL WRITER procedure are i n the results section. ECG 12-LEAD Routine 06/10/2019 8:36 Results for this AM MANUAL WRITER procedure are i n the results section. PHOSPHORUS LEVEL STAT 06/10/2019 8:30 Results for this AM MANUAL WRITER procedure are i n the results section. THYROID STIMULATING STAT 06/10/2019 8:30 Resu lts for this HORMONE AM MANUAL WRITER procedure are i n the results section. HC COMPLETE BLD COUNT STAT 06/10/2019 8:30 Re sults for this W/AUTO DIFF AM MANUAL WRITER procedure are i n the results section. HEMOGLOBIN A1C STAT 06/10/2019 8:30 Results f or this AM MANUAL WRITER procedure are i n the results section. ESTIMATED GFR STAT 06/10/2019 8:30 Results fo r this AM MANUAL WRITER procedure are i n the results section. B NATRIURETIC PEPTIDE STAT 06/10/2019 8:30 Re sults for this AM MANUAL WRITER procedure are i n the results section. TROPONIN STAT 06/10/2019 8:30 Results for this AM MANUAL WRITER procedure are i n the results section. PROTHROMBIN TIME WITH STAT 06/10/2019 8:30 Re sults for this INR AM MANUAL WRITER procedure are i n the results section. PARTIAL THROMBOPLASTIN STAT 06/10/2019 8:30 R esults for this TIME (PTT) AM MANUAL WRITER procedure are i n the results section. MAGNESIUM LEVEL STAT 06/10/2019 8:30 Results for this AM MANUAL WRITER procedure are i n the results section. LIPID PANEL STAT 06/10/2019 8:30 Results for this AM MANUAL WRITER procedure are i n the results section. LACTIC ACID LEVEL STAT 06/10/2019 8:30 Result s for this AM MANUAL WRITER procedure are i n the results section. COMPREHENSIVE STAT 06/10/2019 8:30 Results fo r this METABOLIC PANEL AM MANUAL WRITER procedure ar e in the results section. XR CHEST 1 VW PORTABLE Routine 06/10/2019 5:57 R esults for this AM MANUAL WRITER procedure are i n the results section. BLOOD CULTURE, AEROBIC Routine 06/10/2019 4:50 R esults for this & ANAEROBIC AM MANUAL WRITER procedure are i n the results section. BLOOD CULTURE, AEROBIC Routine 06/10/2019 4:40 R esults for this & ANAEROBIC AM MANUAL WRITER procedure are i n the results section. MRSA SCREEN CULTURE Routine 06/10/2019 3:25 Resu lts for this AM MANUAL WRITER procedure are i n the results section. CT CHEST EXTERNAL Routine 06/09/2019 5:56 Result s for this STUDY PM MANUAL WRITER procedure are i n the results section. XR CHEST EXTERNAL Routine 06/09/2019 4:36 Result s for this STUDY PM MANUAL WRITER procedure are i n the results section. US VASCULAR EXTERNAL Routine 06/09/2019 3:41 Res ults for this STUDY PM MANUAL WRITER procedure are i n the results section. ECG 12-LEAD Routine 06/01/2019 10:14 Results for this AM MANUAL WRITER procedure are i n the results section. ESTIMATED GFR Routine 06/01/2019 6:08 Results fo r this AM MANUAL WRITER procedure are i n the results section. TROPONIN Routine 06/01/2019 6:08 Results for this AM MANUAL WRITER procedure are i n the results section. B NATRIURETIC PEPTIDE Routine 06/01/2019 6:08 Re sults for this AM MANUAL WRITER procedure are i n the results section. HC COMPLETE BLD COUNT Routine 06/01/2019 6:08 Re sults for this W/AUTO DIFF AM MANUAL WRITER procedure are i n the results section. BASIC METABOLIC PANEL Routine 06/01/2019 6:08 Re sults for this AM MANUAL WRITER procedure are i n the results section. ECG 12-LEAD Routine 06/01/2019 5:45 Results for this AM MANUAL WRITER procedure are i n the results section. ESTIMATED GFR Routine 05/31/2019 2:58 Results fo r this PM MANUAL WRITER procedure are i n the results section. TROPONIN Routine 05/31/2019 2:58 Results for this PM MANUAL WRITER procedure are i n the results section. B NATRIURETIC PEPTIDE Routine 05/31/2019 2:58 Re sults for this PM MANUAL WRITER procedure are i n the results section. HC COMPLETE BLD COUNT Routine 05/31/2019 2:58 Re sults for this W/AUTO DIFF PM MANUAL WRITER procedure are i n the results section. BASIC METABOLIC PANEL Routine 05/31/2019 2:58 Re sults for this PM MANUAL WRITER procedure are i n the results section. HC ECHO 2-D F/UP Routine 05/30/2019 10:50 Results for this LIMITED AM MANUAL WRITER procedure are i n the results section. ECG PRE/POST OP Routine 05/30/2019 4:03 Results for this AM MANUAL WRITER procedure are i n the results section. ESTIMATED GFR Routine 05/30/2019 4:00 Results fo r this AM MANUAL WRITER procedure are i n the results section. HC COMPLETE BLD COUNT Routine 05/30/2019 4:00 Re sults for this W/AUTO DIFF AM MANUAL WRITER procedure are i n the results section. MAGNESIUM LEVEL Routine 05/30/2019 4:00 Results for this AM MANUAL WRITER procedure are i n the results section. BASIC METABOLIC PANEL Routine 05/30/2019 4:00 Re sults for this AM MANUAL WRITER procedure are i n the results section. XR CHEST 1 VW PORTABLE Routine 05/29/2019 6:15 R esults for this PM MANUAL WRITER procedure are i n the results section. EP PACEMAKER INSERTION Routine 05/29/2019 5:34 R esults for this NEW OR REPLACEMENT PM MANUAL WRITER procedure are in the results section. TTE COMPLETE, WO STAT 05/29/2019 11:58 Results for this CONTRAST, W DOPPLER AM MANUAL WRITER procedur e are in ([id number]) the results section. B NATRIURETIC PEPTIDE Routine 05/29/2019 10:24 Re sults for this AM MANUAL WRITER procedure are i n the results section. ECG 12-LEAD Routine 05/29/2019 9:23 Results for this AM MANUAL WRITER procedure are i n the results section. PARTIAL THROMBOPLASTIN Routine 05/28/2019 5:00 R esults for this TIME (PTT) PM MANUAL WRITER procedure are i n the results section. PROTHROMBIN TIME WITH Routine 05/28/2019 5:00 Re sults for this INR PM MANUAL WRITER procedure are i n the results section. HC COMPLETE BLD COUNT Routine 05/28/2019 5:00 Re sults for this W/AUTO DIFF PM MANUAL WRITER procedure are i n the results section. ESTIMATED GFR Routine 05/28/2019 4:14 Results fo r this PM MANUAL WRITER procedure are i n the results section. MAGNESIUM LEVEL Routine 05/28/2019 4:14 Results for this PM MANUAL WRITER procedure are i n the results section. PHOSPHORUS LEVEL Routine 05/28/2019 4:14 Results for this PM MANUAL WRITER procedure are i n the results section. THYROID STIMULATING Routine 05/28/2019 4:14 Resu lts for this HORMONE PM MANUAL WRITER procedure are i n the results section. COMPREHENSIVE Routine 05/28/2019 4:14 Results fo r this METABOLIC PANEL PM MANUAL WRITER procedure ar e in the results section. EMG Routine 02/24/2019 12:28 Lumbar radiculopathy Res ults for this PM MANUAL WRITER procedure are i n the results section. MRI LUMBAR SPINE WO Routine 02/24/2019 9:52 Lumbar radiculopa thy Results for this CONTRAST AM MANUAL WRITER procedure are i n the results section. after 09/04/2018 Results Arterial blood gas (06/12/2019 9:00 AM MANUAL WRITER) Pathologist Sig nature pH, arterial 7.40 7.35 - 7.45 [facility] pCO2, arterial 39 35 - 45 mmHg [facility] pO2, arterial 74 (L) 80 - 90 mmHg [facility] Bicarbonate, 24.1 21.0 - 28.0 [facility] mmol/L HOSPITAL Base excess, 0 -2 - 2 mEq/L [facility] O2 saturation, 95 95 - 100 % [facility] Specimen Blood Performing Organization Address City/[facility] Phone Number [facility] DEPARTMENT OF PATHOLOGY AND [address] [place] [address] [phone] [address] Estimated GFR (06/12/2019 2:37 AM MANUAL WRITER)Only the most recent of8 resultswithin the time period is included. Estimated GFR 34 (A) mL/min/1.73 [facility] Comment: m2 HOSPITAL Catergory Units Interpretation G1 >=90 Normal or high G2 60-89 Mildly decreased G3a 45-59 Mildly to moderately decreas ed G3b 30-44 Moderately to severely decre ased G4 15-29 Severely decreased G5 <15 Kidney failure The eGFR was calculated using the Chronic Kidney Disea se Epidemiology Collaboration (CKD-EPI) equation. Interpretation is based on recommendations of the National Kidney Foundation-Kidney Disease Outcomes Jay lity Initiative (NKF-KDOQI) published in 2014. Specimen Plasma specimen Performing Organization Address City/[facility]/Zipcode Phone Number [facility] DEPARTMENT OF PATHOLOGY AND [address] [place] [phone] [facility] [address] [place] [id number] Phosphorus level (06/12/2019 2:37 AM MANUAL WRITER)Only the most recent of5 resultswithin the time period is included. Pathologist Sig nature Phosphorus 3.2 2.4 - 4.5 mg/dL [facility] L Specimen Plasma specimen Performing Organization Address [facility] Phone Number [facility] DEPARTMENT OF PATHOLOGY AND [address] [place] [phone] Magnesium level (06/12/2019 2:37 AM MANUAL WRITER)Only the most recent of6 resultswithin the time period is included. Pathologist Sig nature Magnesium 2.0 1.6 - 2.4 mg/dL [facility] Specimen Plasma specimen Performing Organization Address [facility] Phone Number [facility] DEPARTMENT OF PATHOLOGY AND [address] [place], [place] [phone] [address] [address] Vancomycin level, trough (06/12/2019 2:37 AM MANUAL WRITER) Vancomycin, 24.2 (HH) 10.0 - 20.0 [facility] trough Comment: ug/mL HOSPITAL Therapeutic Ranges: Peak 30.0 - 40.0 ug/mL Trough 10.0 - 20.0 ug/mL Specimen Serum Performing Organization Address [facility] Phone Number [facility] DEPARTMENT OF PATHOLOGY AND [address] [place] [phone] Basic metabolic panel (06/12/2019 2:37 AM MANUAL WRITER)Only the most recent of5 results within the time period is included. Pathologist Sig nature Sodium 144 135 - 148 mEq/L [facility] Potassium 4.9 3.5 - 5.0 mEq/L [facility] Chloride 106 98 - 112 mEq/L [facility] CO2 24 24 - 31 mEq/L [facility] Anion gap 14@ANIO 7 - 15 mEq/L [facility] BUN 30 (H) 8 - 23 mg/dL [facility] Creatinine 1.77 (H) 0.50 - 0.90 mg/dL [facility] Glucose 163 (H) 65 - 99 mg/dL [facility] Calcium 8.1 (L) 8.8 - 10.2 mg/dL [facility] Specimen Plasma specimen Performing Organization Address City/[facility]/Zipcode Phone Number [facility] DEPARTMENT OF PATHOLOGY AND [address] [place] [address] [phone] [address] Manual differential (06/12/2019 2:00 AM MANUAL WRITER)Only the most recent of2 results within the time period is included. Manual differential PERFORMED [facility] Neutrophils 56.0 39.0 - 69.0 % [facility] Lymphocytes 34.0 25.0 - 45.0 % [facility] Monocytes 6.0 0.0 - 10.0 % [facility] Eosinophils 4.0 0.0 - 5.0 % [facility] Basophils 0.0 0.0 - 1.0 % [facility] Metamyelocytes 0 % [facility] Promyelocytes 0 % [facility] Platelet slide review Dede slt incr [facility] Anisocytosis Moderate [facility] Polychromasia Moderate [facility] Specimen Performing Organization Address [facility]conc Phone Number [facility] DEPARTMENT OF PATHOLOGY AND [address] [place], [place] [phone] [address] [address] Partial thromboplastin time, activated (06/12/2019 2:00 AM MANUAL WRITER)Only the most recent of4 resultswithin the time period is included. PTT 103.7 (HH) 23.0 - 36.0 [facility] Comment: [facility] PTT therapeutic range for unfractionated heparin is 61.0-112.0 seconds which corresponds to Anti-Xa 0.3-0.7 U/ml. PTT results called to and read back by Richard LOPEZ/JEN at 06/12/2019 02:56 by KCScott. Specimen Blood Performing Organization Address City/[facility]/Zipcode Phone Number [facility] DEPARTMENT OF PATHOLOGY AND [address] [place] [address] [phone] [address] CBC with platelet and differential (06/12/2019 2:00 AM MANUAL WRITER)Only the most recent of7 resultswithin the time period is included. Pathologist Sig nature WBC 13.61 (H) 4.50 - 11.00 k/uL [facility] RBC 3.03 (L) 4.20 - 5.50 m/uL [facility] HGB 8.6 (L) 12.0 - 16.0 g/dL [facility] HCT 28.1 (L) 37.0 - 47.0 % [facility] MCV 92.7 82.0 - 100.0 fL [facility] MCH 28.4 27.0 - 34.0 pg [facility] MCHC 30.6 (L) 31.0 - 37.0 g/dL [facility] RDW - SD 55.9 (H) 37.0 - 55.0 fL [facility] MPV 10.9 8.8 - 13.2 fL [facility] Platelet count 415 (H) 150 - 400 k/uL [facility] Nucleated RBC 0.00 /100 WBC [facility] Neutrophils 56.0 39.0 - 69.0 % [facility] Lymphocytes 34.0 25.0 - 45.0 % [facility] Monocytes 6.0 0.0 - 10.0 % [facility] Eosinophils 4.0 0.0 - 5.0 % [facility] Basophils 0.0 0.0 - 1.0 % [facility] Specimen Blood Performing Organization Address City/State/Zipcode Phone Number [facility] DEPARTMENT OF PATHOLOGY AND [address] [place] [address] [phone] [address] Occult blood, stool (06/11/2019 10:26 PM MANUAL WRITER) Occult blood, Negative for occult blood. [facility] stool Comment: HOSPITAL Specimen Information Specimen Source: Stool Specimen Site: Nonpreserved Specimen Stool - Nonpreserved Performing Organization Address City/State/Zipcode Phone Number [facility] DEPARTMENT OF PATHOLOGY AND [address] [place] [address] [phone] [address] Us duplex venous upper extremity (06/11/2019 8:49 AM MANUAL WRITER) Specimen Narrative Performed At [facility] ltrasound Laboratory Upper Extr emity Venous Report [id number] [facility], [address] [address] Pat.Name: CARL PEREZ Pat.ID: [id number] .Date: 06/11/2019 Refer.MD: KRISTAL GUTHRIE MD Exam Time: 7:58:00 AM Study Type:U E Venous Height: 62in A ge: 1955,63Y Sex: FEMALE Sonogrp hr: Braeden Kim RN, RVT Pat. Stat.:Inpatient Room: [address] Vol: DP, CPT - 4: 91804 Echo Event ID:[id number] Order ID: [id number] Reason for Study:Left arm pain and edema status post pacemaker insertion 05/29/2019 Procedures: Colorflow, Grayscale/2D, Pul sed wave Doppler Race: B SUMMARY: DUPLEX SCAN OBSERVATIONS Right Left IJ Normal Normal Subclavian Normal Normal Axillary Normal Obstructed Brachial Normal Normal Basilic Normal Normal Cephalic Normal Continuous RIGHT: There is normal compressibility and no evidence of echogenic material noted within the lumen of the v isualized veins. Colorflow and Doppler signals are normal. LEFT: The axillary vein is not compre ssible and filled with soft echogenic material. Colorflow is absen t. PRELIMINARY FINDINGS 1. Venous thrombosis of the left axill cuba vein. 2. Patient unable to perform thoraci c outlet maneuvers. PHYSICIAN INTERPRETATION Venous examination of the both upper ext remities and neck demonstrated deep venous thrombosis of the left axill cuba vein. FINDINGS: Signed 06/11/2019 10:05 AM Nicolás Fuentes MD, [facility] Procedure Note Interface, Radiology Results In - 2019 10:05 AM [facility] Vascular Ultrasound Laboratory Upper Extremity Veno us Report [id number] [facility], [facility] [address] , [place] [address] Pat.Name: CARL PEREZ Pat.I D: [id number] .Date: 06/11/2019 Refer .MD: KRISTAL GUTHRIE MD Exam Time: 7:58:00 AM Study Type:UE Venous Height: 62in Age: 6 1955,63Y Sex: FEMALE Sonog rphr: Braeden Kim, RN, RVT Pat. Stat.:Inpatient Room: [facility] Tape Vol: DP, CPT - 4: 19130 Echo Event ID:[id number] Order ID: [id number] Reason for Study:Left arm pain and edema status post pacemaker insertion 05/29/2019 Procedures: Colorflow, Grayscale/2D, Pul sed wave Doppler Race: B SUMMARY: DUPLEX SCAN OBSERVATIONS Right Left IJ Normal Normal Subclavian Normal Normal Axillary Normal Obstructed Brachial Normal Normal Basilic Normal Normal Cephalic Normal Continuous RIGHT: There is normal compressibility and no evidence of echogenic material noted within the lumen of the v isualized veins. Colorflow and Doppler signals are normal. LEFT: The axillary vein is not alessandra sible and filled with soft echogenic material. Colorflow is absent . PRELIMINARY FINDINGS 1. Venous thrombosis of the left axilla ry vein. 2. Patient unable to perform thoracic outlet maneuvers. PHYSICIAN INTERPRETATION Venous examination of the both upper ext remities and neck demonstrated deep venous thrombosis of the left axill cuba vein. FINDINGS: Signed 06/11/2019 10:05 AM Nicolás Fuentes MD, RPVI Performing Organization Address City/[facility]/Zipcode Phone Number [facility]2ID [address] [place] [address] Comprehensive metabolic panel (06/11/2019 3:58 AM MANUAL WRITER)Only the most recent of3 resultswithin the time period is included. Pathologist [facility] Sodium 142 135 - 148 [facility] mEq/L [facility] Potassium 5.0 3.5 - 5.0 [facility] mEq/L [facility] Chloride 103 98 - 112 mEq/L [facility] CO2 26 24 - 31 mEq/L [facility] Anion gap 13@ANIO 7 - 15 mEq/L [facility] BUN 29 (H) 8 - 23 mg/dL [facility] Creatinine 1.92 (H) 0.50 - 0.90 [facility] mg/dL [facility] Glucose 126 (H) 65 - 99 mg/dL [facility] Calcium 8.3 (L) 8.8 - 10.2 [facility] mg/dL [facility] Protein 7.2 6.3 - 8.3 g/dL [facility] Comment: HOSPITAL Plfncfj8613.6-7.0 g/dL 1 gbte8660.4-7.6 g/dL 7 months-0buqc271.1-7.3 g/dL 1-2 .6-7.5 g/dL >3 yldcs414.0-8.0 g/dL 18-4455842.3-8.3 g/dL Albumin 2.7 (L) 3.5 - 5.0 g/dL [facility] A/G ratio 0.6 (L) 0.7 - 3.8 [facility] Alkaline phosphatase 160 (H) 35 - 104 U/L [facility] AST 30 10 - 35 U/L [facility] ALT 16 5 - 50 U/L [facility] Total bilirubin <0.2 0.0 - 1.2 [facility] mg/dL HOSPITAL Specimen Plasma specimen Performing Organization Address City/[facility]/Zipcode Phone Number [facility] DEPARTMENT OF PATHOLOGY AND [address] [place] [address] GENOM[facility] MED[address]INE [address] [address] Urinalysis screen and microscopy, with reflex to culture (06/10/2019 10:00 AM MANUAL WRITER) Specimen site Clean catch [facility] Color, UA Straw [facility] Appearance, UA Clear [facility] Specific gravity, UA 1.013 1.001 - 1.035 [facility] pH, UA 5.0 5.0 - 8.5 [facility] Protein, UA Negative Negative [facility] Glucose, UA Negative Negative [facility] Ketones, UA Negative Negative [facility] Bilirubin, UA Negative Negative [facility] Blood, UA Negative Negative [facility] Nitrite, UA Negative Negative [facility] Urobilinogen, UA <2.0 <2.0 [facility] Leukocyte esterase, Negative Negative [facility] Epithelial cells, UA 2 /HPF [facility] WBC, UA None seen 0 - 4 /HPF [facility] RBC, UA <1 0 - 5 /HPF [facility] Bacteria, UA None seen None seen [facility] Yeast, UA None seen [facility] Yeast with None seen [facility] Hyaline casts, UA 1 /LPF [facility] Specimen Urine Performing Organization Address City/State/Zipcode Phone Number [facility] DEPARTMENT OF PATHOLOGY AND [address] [place] [address] [phone] [address] Urine culture (06/10/2019 10:00 AM MANUAL WRITER) Pathologist Sig [facility] Urine culture SEE COMMENTComment: [facility] Bacteriuria screen HOSPITAL negative. Specimen Performing Organization Address City/[facility] Phone Number [facility] DEPARTMENT OF PATHOLOGY AND [address] [place] [address] [phone] [address] ECG 12 lead (06/10/2019 8:36 AM MANUAL WRITER)Only the most recent of4 resultswithin the time period is included. Pathologist Sig nature Ventricular rate 64 [facility] Atrial rate 64 [facility] MA interval 142 [facility] QRSD interval 94 [facility] QT interval 410 [facility] QTC interval 422 [facility] P axis 1 35 [facility] QRS axis 1 -7 [facility] T wave axis -26 [facility] EKG impression Normal sinus rhythm-Moderate voltage criteria for LVH, may be normal variant ( R in aVL , Kemal product )-Nonspecific T wave abnormality- Abnormal ECG-In automated comparison with ECG of 01-JUN-2019 10 [facility] M[facility] :14,-Sinus rhythm has replaced Electronic atrial pacemaker- Specimen Narrative Performed At This result has an attachment that is no t available. Performing Organization Address City/[facility]/Zipcode Phone Number [facility] M[facility] [address] [place] [address] Troponin (06/10/2019 8:30 AM MANUAL WRITER)Only the most recent of3 resultswithin the time period is included. Troponin 0.035 0.000 - 0.040 [facility] Comment: ng/mL HOSPITAL In patients suspected of having a myocardial infarctio n, along with all other appropriate clinical measures and actions includ ing ECG and other diagnostics as appropriate, measure Ultra TnI at 0 hrs and at 3 hrs. Myocardial infarction VERY LIKELY The 0 hr TnI level is > 0.10 ng/mL Myocardial infarction LIKELY The 0 hr TnI level is > 0.04 ng/mL and 3 hr level is i ncreased or decreased by at least 0.020 ng/mL Myocardial infarction VERY UNLIKELY Both the 0 hr and 3 hr TnI levels <= 0.04 ng/mL(within normal limits) OR 0 hr is > 0.04 ng/mL and 3 hr is increased OR decreased by less than 0.020 ng/mL Specimen Plasma specimen Performing Organization Address City/[facility]/Zipcode Phone Number [facility] DEPARTMENT OF PATHOLOGY AND [address] [place], [place] [address] GENOMIC MEDICINE [facility] [address] [place] [address] Prothrombin time with INR (06/10/2019 8:30 AM MANUAL WRITER)Only the most recent of2 resultswithin the time period is included. Prothrombin time 14.9 (H) 11.5 - 14.5 [facility] INR 1.2 [facility] Comment: [facility] Normalized Ratio (INR) is a [facility] HOSPITAL monitoring tool for patients who are stable on oral anticoagulant therapy. An INR of 2.0-3.0 is suggested for deep vein thrombosis/pulmonary embolism. Specimen Blood Performing Organization Address [facility] Phone Number [facility] DEPARTMENT OF PATHOLOGY AND [address] [place] [address] Thyroid stimulating hormone (06/10/2019 8:30 AM MANUAL WRITER)Only the most recent of2 resultswithin the time period is included. Pathologist Sig [facility] TSH 1.46 0.27 - 4.20 uIU/mL [facility] Specimen Plasma specimen Performing Organization Address [facility] Phone Number [facility] DEPARTMENT OF PATHOLOGY AND [address] [place] [address] [place] [address] B natriuretic peptide (06/10/2019 8:30 AM MANUAL WRITER)Only the most recent of4 results within the time period is included. Pathologist Sig [facility] BNP 229 (H) 0 - 100 pg/mL [facility] Specimen Blood Performing Organization Address [facility] Phone Number [facility] DEPARTMENT OF PATHOLOGY AND [address] [place] [address] Lactic acid level (06/10/2019 8:30 AM MANUAL WRITER) Pathologist Sig [facility] Lactic acid 1.6 0.5 - 2.2 mmol/L [facility] Specimen Plasma specimen Performing Organization Address [facility] Phone Number [facility] DEPARTMENT OF PATHOLOGY AND [address] [place] [phone] [place] [phone] Hemoglobin A1c (06/10/2019 8:30 AM MANUAL WRITER) Hemoglobin A1C 7.7 (H) 4.0 - 5.6 % [facility] Comment: HOSPITAL HbA1c cutoffs for diagnosing diabetes: 4.0% - 5.6% = normal 5.7% - 6.4% = increased risk for diabetes (prediabetes )9 >=6.5% = diabetes9 Goals for glycemic control (ADA 2016) < 7.0% Target for non adults with diabetes. More or less stringent targets may be appropriate for individual patients. <7.5% Target for Children and adolescents with type 1 diabetes. Specimen Performing Organization Address City/[facility] Phone Number [facility] DEPARTMENT OF PATHOLOGY AND [address] [place], [place] [address] GEN[address] [address] Lipid panel (06/10/2019 8:30 AM MANUAL WRITER) Cholesterol 151 <200 mg/dL [facility] Triglycerides 155 (H) <150 mg/dL [facility] HDL cholesterol 25 (L) >40 mg/dL [facility] LDL cholesterol 90Comment: Result <100 mg/dL [facility] obtained by direct [facility] LDL measurement [facility] Lipid panel SeeBelow [facility] interpretation Comment: [facility] Total Cholesterol (mg/dL) HOSPIT AL <200 Desirable 200-239 Borderline-high >=240 High Triglycerides (mg/dL) <150 Normal 150-199 Borderline-high 200-499 High >=500 Very high HDL Cholesterol (mg/dL) <40 Low (male) <40 Low (female) LDL Cholesterol (mg/dL) <100 Optimal 100-129 Near or above optimal 130-159 Borderline-high 160-189 High >=190 Very high Risk Catergories that modify LDL goals. Risk Catergories LDL goal (mg/d L) CHD and CHD risk equivalent <100 (10-year risk >20%) Multiple (2+) risk factors <130 (10-year risk =<20%) 0-1 risk factors <160 (<10-year risk) Defining levels of lipids in metabolic syndrome Triglycerides >=150 mg/dL HDL Cholesterol Men <40 mg /dL Women <40 mg/ dL Non-HDL cholesterol is a second target for therapy in persons with high triglycerides (>=200 mg/dL) Specimen Plasma specimen Performing Organization Address City/[facility]/Zipcode Phone Number [facility] DEPARTMENT OF PATHOLOGY AND [address] [place] [phone] [facility] [address] [place] [address] XR Chest 1 Vw Portable (06/10/2019 5:57 AM MANUAL WRITER)Only the most recent of2 results within the time period is included. Specimen Narrative Performed At EXAMINATION: XR CHEST 1 VW PORTABLE [facility] CLINICAL HISTORY: 63 years Female Pulmon cuba edema [facility] COMPARISON: Most recent prior at [facility] IMPRESSION: 1.Left chest wall cardiac device is similar to prior. Cardiomediastinal silhouette is stable. Central vasculature is at the up per limits of normal. Previous groundglass opacities have improved, probably was edema. 2.The lungs are hypoinflated with bibasilar atelectasi s. There is no new consolidation, effusion or pneumothorax. [facility]-[id number] Procedure Note [facility], Radiology Results Incoming - 06/10/2019 6:56 AM MANUAL WRITER EXAMINATION: XR CHEST 1 VW PORTABLE CLINICAL HISTORY: 63 years Female Pulmon cuba edema [facility] COMPARISON: Most recent prior at [facility] IMPRESSION: 1.Left chest wall cardiac device is marisabel lar to prior. Cardiomediastinal silhouette is stable. Central vasculature is at the upper limits of normal. Previous groundglass opacities have improved, probably was edema. 2.The lungs are hypoinflated with bibasi lar atelectasis. There is no new consolidation, effusion or pneumothorax. [facility]-[id number] Performing Organization Address City/State/Zipcode Phone Number [facility] [address] [place] [address] Blood culture, aerobic & anaerobic (06/10/2019 4:50 AM MANUAL WRITER)Only the most recent of2 resultswithin the time period is included. Blood culture No growth after 5 days of incubation. [facility] isolate Comment: HOSPITAL Specimen Information Specimen Source: Blood Specimen Site: Peripheral Forearm Right Specimen Blood Performing Organization Address City/State/Zipcode Phone Number [facility] DEPARTMENT OF PATHOLOGY AND [address] [place], [place] [address] [facility] [address] [place] [address] MRSA screen culture (06/10/2019 3:25 AM MANUAL WRITER) MRSA screen No Methicillin Resistant Staphylococcus aureus i solated. [facility] culture isolate Comment: HOSPITAL Specimen Information Specimen Source: Nares Specimen Site: Not specified Specimen Nares - Not specified Performing Organization Address [facility]/Zipcode Phone Number [facility] DEPARTMENT OF PATHOLOGY AND [address] [place], [place] [address] GENOMIC MEDICINE [place] [phone] [place] [address] CT Chest External Study (06/09/2019 5:56 PM MANUAL WRITER) Specimen Narrative Performed At This exam was not acquired at a [facility] facility and has not been [facility] interpreted by a Jewish Provider. T he exam was imported into our imaging system. Performing Organization Address [facility]/Zipcode Phone Number [facility] [address] [place] [address] XR Chest External Study (06/09/2019 4:36 PM MANUAL WRITER) Specimen Narrative Performed At This exam was not acquired at a [facility] facility and has not been [facility] interpreted by a Jewish Provider. T he exam was imported into our imaging system. Performing Organization Address [facility] Phone Number [facility] [address] [place] [address] [place] Vascular External Study (06/09/2019 3:41 PM MANUAL WRITER) Specimen Narrative Performed At This exam was not acquired at a [facility] facility and has not been [facility] interpreted by a Jewish Provider. T he exam was imported into our imaging system. Performing Organization Address [facility] Phone Number [facility] [address] [place] [address] Cv echo 2d limited or follow up study (05/30/2019 10:50 AM MANUAL WRITER) Specimen Narrative Performed At [facility] Echo cardiography Report [id number] [facility], [facility] [address] [address] Pat.Name: CARL PEREZ Pat.ID: [id number] .Date: 05/30/2019 Refer.MD: LUANN GARLAND MD Exam Time: 10:41:00 AM Study Type:Ro utine Echo Height: 60in Weight: 223lb BSA: 1.96 m2 Ag e: 1955,63Y Sex: FEMALE BP: 147/71 HR: 64 bpm Sonogr phr: LISS Cox Pat. Stat.:Inpatient Room: A743 Study Status:Final Echo Event ID:[id number] Order ID: [id number] Reason for Study:evaluate for LV noncomp action USE CONTRAST PLEASE Procedures: Intravenous Definity Contras t, 2D Echo,Colorflow Doppler Limited Race: B SUMMARY: Limited study; contrast images are not s uggestive of LV compaction. LV appears enlarged. Biplane LVEF 50%. FINDINGS: MEASUREMENTS: 2D LV EF Biplane LVEDV 201 ml (59-136) Index 103 ml/m2 LV EF 50 % (55-7 5) LVESV 101 ml Index 52 ml/m2 LV SV 100 ml Left Ventricle LV CO 6.4 l/min LV CI 3.3 l/m/m Signed 05/30/2019 03:40 PM Cipriano Klein M.D. Procedure Note Interface, Radiology Results In - 2019 3:40 PM [facility] Echocardiography Report [id number] [place] [address] Pat.Name: CARL PEREZ Pat.I D: [id number] .Date: 05/30/2019 Refer .MD: LUNAN GARLAND MD Exam Time: 10:41:00 AM Study Type:Routine Echo Height: 60in Weigh t: 223lb BSA: 1.96 m2 Age: 6 1955,63Y Sex: FEMALE BP: 147/71 HR: 64 bpm Sonog rphr: LISS Cox Pat. Stat.:Inpatient Room: A743 Study Status:Final Echo Event ID:[id number] Order ID: [id number] Reason for Study:evaluate for LV noncomp action USE CONTRAST PLEASE Procedures: Intravenous Definity Contras t, 2D Echo,Colorflow Doppler Limited Race: B SUMMARY: Limited study; contrast images are not s uggestive of LV compaction. LV appears enlarged. Biplane LVEF 50%. FINDINGS: MEASUREMENTS: 2D LV EF Biplane LVEDV 201 ml (59-136) Inde x 103 ml/m2 LV EF 50 % (55-75) LVESV 101 ml Inde x 52 ml/m2 LV SV 100 ml Left Ventricle LV CO 6.4 l/min LV C I 3.3 l/m/m Signed 05/30/2019 03:40 PM Cipriano Klein M.D. Performing Organization Address City/State/Zipcode Phone Number [facility] [address] [place] [address] ECG Pre/Post Op-Tomorrow (05/30/2019 4:03 AM MANUAL WRITER) Pathologist Sig nature Ventricular rate 67 [facility] Atrial rate 67 [facility] MA interval 150 [facility] QRSD interval 92 [facility] QT interval 412 [facility] QTC interval 435 [facility] P axis 1 36 [facility] QRS axis 1 -1 [facility] T wave axis 174 [facility] EKG impression Normal sinus rhythm with sin us arrhythmia-Voltage criteria for left ventricular hypertrophy-T wave abnormality, consider lateral ischemia- Abnormal ECG-In automated comparison with ECG of 29-MAY-2019 09:23,-T wave inversion now evident in Lateral [facility] M[facility] leads- Specimen Narrative Performed At This result has an attachment that is no t available. Performing Organization Address City/State/Zipcode Phone Number [facility] [address] [place] [address] Electrophysiology procedure (05/29/2019 5:34 PM MANUAL WRITER) Specimen Narrative Performed At This result has an attachment that is no t available. TITLE OF PROCEDURE: [facility] Dual-chamber pacemaker placement. PREOPERATIVE DIAGNOSES: 1. Sinus node dysfunction. 2. Sinus arrest with 8.4-second pause. 3. Presyncope consequent to sinus node dysfunction a nd sinus arrest with 8.4-second pause. POSTOPERATIVE DIAGNOSES: 1. Sinus node dysfunction. 2. Sinus arrest with 8.4-second pause. 3. Presyncope consequent to sinus node dysfunction a nd sinus arrest with 8.4-second pause. PROCEDURES PERFORMED: 1. Left upper extremity venogram. 2. Dual-chamber pacemaker placement. 3. IV conscious sedation. BRIEF HISTORY AND CLINICAL BACKGROUND: This is a 63-year-old woman transferred from [facility] for the aforementioned symptomatic pause. She relates that she was in bed, but awake, felt transiently dizzy. Shortly thereafter nurses came in to check on her. She had an 8.4-second pause and was transferred at the recommenda tion of Dr. Ry Peña for pacemaker insertion. She is on no offending medi cations. 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 In the absence of a history of cardia c arrest or familial history of cardiac arrest, there is no indication for defibrillator insertion at this time. DESCRIPTION OF PROCEDURE: Informed consent was obtained. Intravenous antibioti cs were infused appropriately. The chest was prepped and draped in t he usual sterile fashion and local anesthesia was achieved with 1% lidocaine. An upper extremity venogram was performed to identify the location of the axillary and subclavian vein and access was achieved. Guide wires were intro duced under fluoroscopic guidance and advanced into the inferior vena cava. Using a sharp knife, cautery, and blunt dissection, a pocket was formed below the plane of the pectoralis fascia. The RV and atria l leads were placed into the venous system using standard technique. The RV p tiff/sense lead was placed into the RV apex and tested. After the thresholds we re deemed adequate the lead was anchored in place. Maximum output pacing was per formed to ensure that there was no diaphragmatic stimulation, and none was seen. The lead was anchored in place using 0-Ethibond sutures around the lead collar. A bipolar screw-in lead was affixed into the right atr ium. Sensing and pacing thresholds were then performed. After they were foun d to be adequate, maximum output pacing was performed to ensure that there was n o diaphragmatic stimulation, and none was seen. The lead was anchore d in place using 0-Ethibond sutures around the lead collar. Fluoroscopy was repeated to ensure proper lead placeme nt. The pacemaker pocket was visually, manually, and radiographically inspected to ensure there were no gauze or sponges in the pocket. It was then washed u sing antibiotic solution. Gloves and drapes were changed as needed. The pacema ker generator packet was then opened and was attached to the leads and the set screws were tightened. Each lead was gently tugged upon to ensure it was affi xed within the header. After proper pacemaker function was confirmed, the adri d slack and pacemaker were placed in the pocket. The pacemaker was anchored to the pectoralis muscle using 0-Ethibond suture. The skin incision was then closed in layers using 0-Vicryl sutures. Final skin closure was achieved with stainl ess steel alessandra and skin adhesive. COMPLICATIONS: None. FINDINGS: 1. The left subclavian vein travelled in its usual c ourse substantially more inferior requiring that the insertion point within the body of the subclavian vein be fairly low and medial. 2. The pacemaker is a [employer] [place] XT DR MRI, mod el [id number], serial #[id number]. 3. Atrial lead is a 4076, serial #[id number]. Viri ured P-wave 3 millivolt, pacing threshold 0.5 volt, current 0.9 mA, impedance 4 83 ohms. 4. The ventricular lead is a 4076-52 cm, serial #[id number]. Measured R-wave 14 millivolts, pacing threshold 0.5 volt, current 0.8 mA, impedance 756 ohms. 5. Conscious sedation was Versed and fentanyl. 6. Estimated blood loss 50 mL. CONCLUSIONS: Successful dual-chamber pacemaker placement. RECOMMENDATIONS: 1. The patient to recovery, then to her room. 2. Repeat the echocardiogram with intravenous echo c ontrast to ascertain whether she has a true LV noncompaction syndrome or no t. Performing Organization Address City/State/Zipcode Phone Number [facility] [address] [place] [address] Echocardiogram complete w contrast and 3D if needed (05/29/2019 11:58 AM MANUAL WRITER) Specimen Narrative Performed At [facility] Echo cardiography Report [id number] [facility], [facility] [address], [place] [address] Pat.Name: CARL PEREZ.ID: [id number] .Date: 05/29/2019 Refer.MD: LUANN GARLAND MD Exam Time: 11:30:00 AM Study Type:Ro utine Echo Height: 60in Weight: 221lb BSA: 1.95 m2 Ag e: 1955,63Y Sex: FEMALE BP: 161/81 HR: 64 bpm Sonogr phr: LISS Suresh Pat. Stat.:Inpatient Room: A743 Study Status:Revised Echo Event ID:[id number] Order ID: [id number] Reason for Study:Evaluate EF pre PM impl ant Procedures: 2D Echo, Colorflow Doppler, Strain Race: B SUMMARY: Mildly dilated LV with mild systolic dys function. Apical images are suggestive of LV non-compaction. Recom mend further evaluation with CMR or echo contrast if clinically indic ated. Elevated LV filling pressure. Low normal RV systolic function. FINDINGS: LV: LV size is mildly enlarged. Apical imag es are suggestive of LV non-compaction. Recommend furthe r evaluation with CMR or echo contrast if clinically indica masoud. There is severe eccentric LV hypertrophy. An LV tendo n is seen. This is a normal variant. Reduced average LV global longitudinal strain at -13%. LV EF i s mildly depressed. Overall wall motion is mildly hypoki netic. Estimated EF is 45-49%. RV: RV size is normal. RV systo lic function is lower limits of normal. LA: LA volume is severely enlar ged. RA: RA size is normal. AO: Aortic root diameter is nor mal in size. VIDA: There is an anterior space c onsistent with a prominent epicardial fat pad. AV: No structural AV abnormalit ies noted. MV: No structural MV abnormalit ies noted. PV: No structural PV abnormalit ies noted. A trace of pulmonic regurgitation. TV: No structural TV abnormalit ies noted. Carrillo: LV relaxation is impaired. L V filling pressure is elevated. Other: Insufficient TR jet to estim ate PA systolic pressure. MEASUREMENTS: 2D Parasternal Long [place] Ao An 2.4 cm LVPWd 1.4 cm Ao Rtd 3 cm Index 1.6 cm/m2 LA Ds 4.8 cm IVSd 1.3 cm RWT 0.49 LVIDd 5.6 cm Index 2.9 cm/m2 LV Mass 322 g (87-12 9) LVIDs 4 cm LVM I ndex 165 g/m LV%fs 29 % LVOT 2.1 cm LA Sng Plane LA Area 31 cm (8.8-23.4) LA Vol 118 ml Index 60 ml/m2 LA LngAx 6.8 cm RA Sng Plane RA Vol 29 ml Index 15 ml/m2 RA LngAx 5.2 cm RA Area 13 cm (8.3-1 9.5) LVOT LVOT Area 3.5 cm RVOT Stroke Vol RVOT 2.6 cm DOPPLER RVOT Stroke Vol RVOT VTI 18 cm RVOT CO 5.4 l/min RVOT SV 94 ml RVOT CI 2.8 l/min/m Signed 05/29/2019 4:14:16 PM Lolly Hansen M.D. Revised Procedure Note Interface, Radiology Results In - 2019 4:14 PM [facility] Echocardiography Report [id number] [place] [address] Pat.Name: CARL PEREZ Pat.I D: [id number] St.Date: 05/29/2019 Refer .MD: LUANN GARLAND MD Exam Time: 11:30:00 AM Study Type:Routine Echo Height: 60in Weigh t: 221lb BSA: 1.95 m2 Age: 4 1955,63Y Sex: FEMALE BP: 161/81 HR: 64 bpm Sonog rphr: LISS Suresh Pat. Stat.:Inpatient Room: [facility] Study Status:Revised Echo Event ID:[id number] Order ID: [id number] Reason for Study:Evaluate EF pre PM impl ant Procedures: 2D Echo, Colorflow Doppler, Strain Race: B SUMMARY: Mildly dilated LV with mild systolic dys function. Apical images are suggestive of LV non-compaction. Recomm end further evaluation with CMR or echo contrast if clinically indic ated. Elevated LV filling pressure. Low normal RV systolic function. FINDINGS: LV: LV size is mildly enlarged. A pical images are suggestive of LV non-compaction. Recommend further evaluation with CMR or echo contrast if clinicall y indicated. There is severe eccentric LV hypertrophy. An LV tendon is seen. This is a normal variant. Reduced avera ge LV global longitudinal strain at -13%. LV EF is mild ly depressed. Overall wall motion is mildly hypokinetic. Estimated EF is 45-49%. RV: RV size is normal. RV systolic function is lower limits of normal. LA: LA volume is severely enlarged . RA: RA size is normal. AO: Aortic root diameter is normal in size. VIDA: There is an anterior space con sistent with a prominent epicardial fat pad. AV: No structural AV abnormalities noted. MV: No structural MV abnormalities noted. PV: No structural PV abnormalities noted. A trace of pulmonic regurgitation. TV: No structural TV abnormalities noted. Carrillo: LV relaxation is impaired. LV filling pressure is elevated. Other: Insufficient TR jet to estimat e PA systolic pressure. MEASUREMENTS: 2D Parasternal Long [place] Ao An 2.4 cm LVPW d 1.4 cm Ao Rtd 3 cm Inde x 1.6 cm/m2 LA Ds 4.8 cm IVSd 1.3 cm RWT 0.49 LVIDd 5.6 cm Inde x 2.9 cm/m2 LV Mass 322 g (87-129) LVIDs 4 cm LVM Index 165 g/m LV%fs 29 % LVOT 2.1 cm LA Sng Plane LA Area 31 cm (8.8-23.4) L A Vol 118 ml Index 60 ml/m2 LA LngAx 6.8 cm RA Sng Plane RA Vol 29 ml Inde x 15 ml/m2 RA LngAx 5.2 cm RA Area 13 cm (8.3-19.5) LVOT LVOT Area 3.5 cm RVOT Stroke Vol RVOT 2.6 cm DOPPLER RVOT Stroke Vol RVOT VTI 18 cm RVOT CO 5.4 l/min RVOT SV 94 ml RVOT CI 2.8 l/min/m Signed 05/29/2019 4:14:16 PM Lolly Hansen M.D. Revised Performing Organization Address City/State/Zipcode Phone Number [facility] [id number] [facility] [place] [address] EMG general request (02/24/2019 12:28 PM MANUAL WRITER) Impressions Performed At The patient has a chronic right L5 radi culopathy with new onset right S1 pain and comes in for an EMG study. 1) Motor conductions show absent right p eroneal response. Moderate slowing of bilateral tibial nerves with decreased compound motor action potentials. Latencies are normal 2) Sensory responses show absent superfi cial peroneal responses 3) Bilateral H Reflex Responses are norm al but low amplitude 4) Intramuscular recordings of the bilat eral legs suggest chronic denervation as noted above in right hamstring peroneus , anterior tibialis and EHL. The study suggests: Moderate, chronic right L5, S1 radiculop athies. 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 Mark [facility] Department of Neurology [facility] [address] [address] Office: [phone] Narrative Performed At This result has an attachment that is no t available. NERVE CONDUCTION AND ELECTROMYOGRAPHY REPORT [facility]-[address]th Floor; [place], [place] [address]; Teleph one [phone] Name: Carl Perez Date of Procedure: 02/24/19 Date of : Sex: female Referring Physician: John Vega MD Ht: 5 foot wt: 197 temp: 32.3/32.4 Nerve Conduction (Latencies in msec, Amplitudes uV, Distance cm, Velocity M/Sec) Right Motor Nerves Dist. Lat. Prox lat. D. amp. P. Amp . Dist. Velocity Right Peroneal EDB absent Right Peroneal TA Right Tibial 5 14.8 2.2 1.8 31.5 34 Right Peroneal F Wave absent Right Tibial F Wave 59.8 Right Sensory Nerves Dist. Lat. Prox lat. Dist. amp. Prox Amp. Distance Velocity Right Sural 4.2 9 14.0 Right Superficial Peroneal absent 12.0 Right Saphenous Left Motor Nerves Dist. Lat. Prox lat. D. amp. P. Amp. Dist. Velocity Left Peroneal EDB 3.0 10.7 1.8 1.3 31 40 Left Peroneal TA Left Tibial 3.9 12.7 0.8 0.6 31 34 Left Peroneal F Wave 53.7 Left Tibial F Wave absent Left Sensory Nerves Dist. Lat. Prox lat. Dist. a mp. Prox Amp. Distance Velocity Left Sural 3.8 9 14.0 Left Superficial Peroneal absent 12.0 Left Saphenous Right Soleus (H Reflex Response Latency): 32.2, low am plitude Left Soleus (H Reflex Response Latency): 32, low ampli tude Electromyography (Motor Unit in mV; H=High; L=Low; P=P olyphasic; NS=Non-specific) Right Leg Fibs. Pos. Waves Fasc. Polyphasia Motor Units Recruitment Vas. Medialis wnl wnl wnl wnl wnl wnl Ant. Tibialis wnl wnl wnl wnl 3-10 -2-3 Peroneus Longus wnl wnl wnl wnl 3-10 -1-2 Vas.Lateralis wnl wnl wnl wnl wnl wnl Ext. Hallicus L. wnl wnl wnl 20HP 4 -4 Hamstring wnl wnl wnl + 4-12 -2 Left Leg Fibs. Pos. Waves Fasc. Polyphasia M otor Units Recruitment Vas. Medialis wnl wnl wnl wnl wnl wnl Ant. Tibialis wnl wnl wnl wnl wnl wnl Peroneus Longus wnl wnl wnl wnl wnl wnl Vas. Lateralis wnl wnl wnl wnl wnl wnl Ext. Hallicus L. wnl wnl wnl 20HP wnl -1 MRI Lumbar Spine Wo Contrast (02/24/2019 9:52 AM MANUAL WRITER) Specimen Narrative Performed At This result has an attachment that is no t available. EXAMINATION: MRI LUMBAR SPINE WO CONTRAST RADIANT CLINICAL HISTORY: M54.16 Radiculopathy lumbar region, right s1 pain hx of lumbar fusion COMPARISON: July 23, 2009 FINDINGS: Lowermost functional disc space is assumed to be L5-S1 . Straightening of the cervical spine. No suspicious focal bone marrow lesions Visualized spinal cord is normal in appearance. L2-S1 fusion transpedicular screws and i nterconnecting rods. There is ankylosis at the L3-S1 disc spaces. There is partial bony bridging at the L1 -L2 disc space. There is increased T2/STIR signal within the disc space at L1-L2. No associated bone marrow edema or endplate irregularity. Findings are likely degenerative in nature. L1-2: No canal narrowing. Foramina are clear. L2-3: Laminectomy changes. No central canal narrowing. Foramina are clear. L3-4: Laminectomy changes. No central ca nal narrowing. Foramina appear clear. Hardware limits evaluation. L4-5: Laminectomy changes. No central ca nal narrowing. Facet arthropathy and osteophytosis causes some degree of narrowing of the right foramen, likely mild to moderate in degree. Hardware artifact limits evaluation. L5-S1: Laminectomy changes. No central c anal narrowing. Facet arthropathy and osteophytosis causes some degree of narrowing of the right foramen which is likely moderate in degree. Hardware artifact limits the evaluation. IMPRESSION: L2-S1 fusion and decompression changes without residua l canal narrowing. Slightly limited evaluation of the alayna lane due to hardware artifact. Likely mild to moderate foraminal narrowing at right L4-5 and right L5-S1 [facility]-[id number] Procedure Note Hm Interface, Radiology Results Incoming - 02/24/2019 10:22 AM MANUAL WRITER EXAMINATION: MRI LUMBAR SPINE WO CONTRAST CLINICAL HISTORY: M54.16 Radiculopathy lumbar region, right s1 pain hx of lumbar fusion COMPARISON: July 23, 2009 FINDINGS: Lowermost functional disc space is assum ed to be L5-S1. Straightening of the cervical spine. No suspicious focal bone marrow lesions Visualized spinal cord is normal in appe arance. L2-S1 fusion transpedicular screws and i nterconnecting rods. There is ankylosis at the L3-S1 disc spaces. There is partial bony bridging at the L1 -L2 disc space. There is increased T2/STIR signal within the disc space at L1-L2. No associated bone marrow edema or endplate irregularity. Findings are likely degenerative in nature. L1-2: No canal narrowing. Foramina are c lear. L2-3: Laminectomy changes. No central ca nal narrowing. Foramina are clear. L3-4: Laminectomy changes. No central ca nal narrowing. Foramina appear clear. Hardware limits evaluation. L4-5: Laminectomy changes. No central ca nal narrowing. Facet arthropathy and osteophytosis causes some degree of narrowing of the right foramen, likely mild to moderate in degree. Hardware artifact limits evaluation. L5-S1: Laminectomy changes. No central c anal narrowing. Facet arthropathy and osteophytosis causes some degree of narrowing of the right foramen which is likely moderate in degree. Hardware artifact limits the evaluation. IMPRESSION: L2-S1 fusion and decompression changes w ithout residual canal narrowing. Slightly limited evaluation of the alayna lane due to hardware artifact. Likely mild to moderate foraminal narrowing at right L4-5 and right L5-S1 [facility]-[id number] Performing Organization Address City/State/Zipcode Phone Number [employer] [address] [place] [address] after 09/04/2018 Insurance Payer Benefit Plan / Subscriber ID Effective Dates Phone Addre ss Type Group [employer] xxxxxxxx 2019-Presen O O MCR ADV t Advance Directives For more information, please contact: [phone] Type Date Recorded Patient Principal Gifts Officer Explanati on Advance Directives, Living Will and Medical Power of Outside Plant Technician Code Status Date Activated Date Inactivated Comments Full Code 05/28/2019 4:16 PM 06/01/2019 10:11 PM Code Status decision reached by: Patient
--- OUTSIDE RECORDS SUMMARY | 2019-09-05 09:15 | XMS REPORT ---
:1955 Author Organization [facility] t Address [address] [place] [address] [address] [place] [id number] Care Team Providers Name Role Phone Constance Uribe DO Primary Care Physician [facility] Attending Clinician Unavailable Eduar GHOTRA Attending Clinician Unavailable Jaylin FENTON C. Attending Clinician Lavon PALACIO Attending Clinician Wilman FENTON, F. Attending Clinician Roly FENTON Attending Clinician Marlene FENTON, L. Attending Clinician JAYLIN Admitting Clinician Unavailable WILMAN Admitting Clinician Unavailable Payers Payer Name Policy Type Policy Effective Expiration Source Number Date Date CIGNA xxxxxxxx 2019 [facility] [facility] ADVxxxxxxxx4-Pr esentHMO Problems Condition Condition Condition Status Onset Resolution Last Treating Co mments Source Name Details Category Date Date Treatment Clinician Date Infection Infection Disease Active Jose ston of of 2-29 Methodi pacemaker pacemaker 00:00: st pocket pocket 00 Cardiac Cardiac Disease Active [place] arrhythmia arrhythmia 2-16 Me thodi 00:00: st 00 Allergies, Adverse Reactions, Alerts Allergy Allergy Status Severity Reaction(s) Onset Inactive Treating Comm ents Source Name Type Date Date Clinician Danyel Quintero Active Itching, Pt states [place] ty to Other (See 8- she Method i adverse Comments) 00:00: itches st reaction 00 s to drug Morphine Propensi Active Other (See 2019-0 Pt itches Gomez ty to Comments) 12-01 Methodi adverse 00:00: st reaction 00 s to drug Penicill Propensi Active Other (See 2019-0 Pt states Gomez in V ty to Comments) 12-01 she gets Metho di adverse 00:00: welps all st reaction 00 over her s to abdomen drug Trazodon Propensi Active Other (See 2018- unknown [place] ty to Comments) 12-01 Methodi adverse 00:00: st reaction 00 s to drug Family History Family Member Diagnosis Comments Start Date Stop Date Source Natural father Heart attack Jason Negrete Natural mother Heart failure [facility] [facility] Social History Social Habit Start Date Stop Date Quantity Comments Source History of tobacco Cigarette Smoker [place] use [facility] Sex Assigned At [facility] Cigarettes smoked 2019-06-10 2019-06-10 Gomez current (pack per 00:00:00 00:00:[address] day) - Reported Cigarette 2019-06-10 2019-06-10 [facility] pack-years 00:00:00 00:00:00 Sab[facility]ism Alcohol intake 2019-06-10 2019-06-10 Current drinker [place] 00:00:00 00:00:00 of alcohol Sabianism (finding) Smoking Status Start Date Stop Date Source Former smoker 2019-06-10 00:00:00 2019-06-10 00:00:00 Jason Negrete Medications Ordered Filled Start Stop Current Ordering Indication Dosage Frequency Signature Comments Components Source Medication Medication Date Date Medication? Clinician (SIG) Name Name apixaban 2019- No 5mg Q.5D Take 1 [place] (ELIQUIS) 5 06-16-06 tablet (5 Me thodi mg tablet 00:00: 23:59 mg total) st 00 :00 by mouth 2 (two) times a day for 30 days. allopurinoL 2019- No 300mg QD Take 300 Gomez (ZYLOPRIM) 06-11 03-02 mg by Methodi 300 MG 15:37: 00:[address] tablet 28 :00 daily. clonIDINE 2019- No .2mg QD Take 1 [place] HCl 06-11- tablet Methodi (CATAPRES) 00:00: 23:59 (0.[address] 0.2 MG 00 :00 total) by tablet mouth every morning for 30 days. clonIDINE 2019-0 2020- No .1mg QD Take 1 [place] (CATAPRES) 06-11 tablet Method i 0.1 MG 00:00: 23:59 (0.[address] tablet 00 :00 total) by mouth every evening for 30 days. carvediloL 2019-2019- No 6.25mg Q.5D Take 1 S[place] low[place] (COREG) 06-11 tablet Methodi 6.25 MG 00:00: 23:59 (6.[address] tablet 00 :00 total) by mouth 2 (two) times a day for 30 days. doxycycline 2019-0 2020- No 100mg Q.5D Take 1 [place] (VIBRAMYCIN 06-11 capsule Meth jose rafael ) 100 MG 00:00: 23:59 ([address] capsule 00 :00 total) by mouth 2 (two) times a day with meals for 7 days. apixaban 2020- No 10mg Q.5D Take 2 [place] n (ELIQUIS) 5 06-11 tablets Meth jose rafael mg tablet 00:00: 23:59 ([address] 00 :00 total) by mouth 2 (two) times a day for 5 days. apixaban 2019- 2020- No Take 10 mg Ho chrissy (ELIQUIS) 5 06-11 by mouth Met hodi mg tablet 00:00: 00:[address] 00 :00 daily x7 days, then 5 mg by mouth twice daily thereafter nadoloL 2019- 2020- No 80mg QD Take 1 Gomez (CORGARD) 06-02 tablet (80 Met hodi 80 MG 00:00: 00:00 mg total) st tablet 00 :00 by mouth daily for 30 days. amLODIPine 2020- No 5mg QD Take 1 [place] (NORVASC) 5 06-02 tablet (5 Me thodi mg tablet 00:00: 00:00 mg total) st 00 :00 by mouth daily for 30 days. gabapentin 2019-0 2020- No 300mg Q.[id number] Take 1 Gomez (NEURONTIN) 06-01 [id number] capsule Methodi 300 mg 00:00: 23:59 3D ([address] capsule 00 :00 total) by mouth 3 (three) times a day for 30 days. clonIDINE 2018-04 2020- No .2mg Q.5D Take 0.2 Jose ston HCl 0-16 03-02 mg by Methodi (CATAPRES) 00:00: 00:[address] 0.2 MG 00 :00 (two) tablet times a day. ALPRAZolam Yes TK 1 T PO [place] (XANAX) 0.5 9-27 TID PRF Metho di MG tablet 00:00: ANXIETY st 00 furosemide 2018- Yes 1{tbl} QD Take 1 Jose ston (LASIX) 40 9-05 tablet by Meth jose rafael mg tablet 00:00: mouth st 00 daily. nadolol 2020- No 1{tbl} QD Take 1 [place] (CORGARD) 8-22 02-20 tablet by Meth jose rafael 40 MG 00:00: 00:[address] tablet 00 :00 daily. HYDROcodone Yes 1{tbl} Q.05601707 Take 1 Gomez -acetaminop 11-18 [id number] tablet by Fadia dodd (NORCO) 00:00: 3D mouth 3 st 7.5-325 mg 00 (three) per tablet times a day. gabapentin 2020- No 1{capsu Take 1 [place] (NEURONTIN) 11-18 02-20 le} capsule by Carolina ethodi 300 mg 00:00: 00:[address] capsule 00 :00 simvastatin Yes 1{tbl} Take 1 [place] (ZOCOR) 40 8-11 tablet by Meth jose rafael MG tablet 00:00: mouth. st 00 Vital Signs Vital Name Observation Time Observation Value Comments Source Systolic blood 2019-06-12 14:55:49 134 mm[Hg] Boni n Sab[facility]ism pressure Diastolic blood 2019-06-12 14:55:49 87 mm[Hg] Rena on Sabianism pressure Heart rate 2019-06-12 14:55:49 76 /min Jason Negrete Body temperature 2019-06-12 11:15:44 36.44 Mari Lina ton [facility]ianism Respiratory rate 2019-06-12 11:15:44 18 /min Lina Negrete Oxygen saturation in 2019-06-12 11:15:44 99 /min Jason Negrete Arterial blood by Pulse oximetry Body weight 2019-06-11 05:00:00 109.861 kg Jason Negrete BMI 2019-06-11 05:00:00 47.30 kg/m2 Jason Negrete Body height 2019-05-28 17:00:00 152.4 cm Jason Negrete Procedures Procedure Date / Time Performing Clinician Source Performed ARTERIAL BLOOD GAS 2019-06-12 09:00:00 Khris Wetzel ethodist VANCOMYCIN LEVEL, TROUGH 2019-06-12 02:37:00 Kristal Mosqueda BASIC METABOLIC PANEL 2019-06-12 02:37:00 Khris Wetzel Sabianism MAGNESIUM LEVEL 2019-06-12 02:37:00 MylavarapuCharlene PHOSPHORUS LEVEL 2019-06-12 02:37:00 MylavarapuCharlene Sabianism ESTIMATED GFR 2019-06-12 02:37:00 Kristal Mosqueda CBC WITH PLATELET AND 2019-06-12 02:00:00 Khris Wetzel DIFFERENTIAL PARTIAL THROMBOPLASTIN 2019-06-12 02:00:00 Kristal Mosqueda Sabianism TIME (PTT) MANUAL DIFFERENTIAL 2019-06-12 02:00:00 Kristal Mosqueda OCCULT BLOOD, STOOL 2019-06-11 22:26:00 Kristal Mosqueda Sabianism PARTIAL THROMBOPLASTIN 2019-06-11 20:04:00 Khris Wetzel on Sabianism TIME (PTT) US DUPLEX VENOUS UPPER 2019-06-11 08:49:17 Charlene John EXTREMITY BILATERAL CBC WITH PLATELET AND 2019-06-11 03:58:00 MylavarapuCharlene DIFFERENTIAL COMPREHENSIVE METABOLIC 2019-06-11 03:58:00 MyCharlene beyer PANEL MAGNESIUM LEVEL 2019-06-11 03:58:00 MylavarapuCharlene PHOSPHORUS LEVEL 2019-06-11 03:58:00 MylavarapuCharlene Sabianism ESTIMATED GFR 2019-06-11 03:58:00 Kristal Mosqueda MANUAL DIFFERENTIAL 2019-06-11 03:58:00 Kristal Mosqueda BASIC METABOLIC PANEL 2019-06-10 16:30:00 Kristal Mosqueda MAGNESIUM LEVEL 2019-06-10 16:30:00 Kristal Mosqueda PHOSPHORUS LEVEL 2019-06-10 16:30:00 Kristal Mosqueda ESTIMATED GFR 2019-06-10 16:30:00 Kristal Mosqueda URINE CULTURE 2019-06-10 10:00:00 Kristal Mosqueda URINALYSIS SCREEN AND 2019-06-10 10:00:00 Tasha Tovar MICROSCOPY, WITH REFLEX TO CULTURE ECG 12-LEAD 2019-06-10 08:36:35 Rc Delgado Meth odist COMPREHENSIVE METABOLIC 2019-06-10 08:30:00 Tasha Tovar PANEL LACTIC ACID LEVEL 2019-06-10 08:30:00 Tasha Tovar LIPID PANEL 2019-06-10 08:30:00 Tasha Tovar MAGNESIUM LEVEL 2019-06-10 08:30:00 Tasha Tovar PARTIAL THROMBOPLASTIN 2019-06-10 08:30:00 Tasha Tovar TIME (PTT) PROTHROMBIN TIME WITH INR 2019-06-10 08:30:00 Tasha Tovar TROPONIN 2019-06-10 08:30:00 Tasha Tovar B NATRIURETIC PEPTIDE 2019-06-10 08:30:00 Tasha Tovar ESTIMATED GFR 2019-06-10 08:30:00 Kristal Mosqueda HEMOGLOBIN A1C 2019-06-10 08:30:00 Kristal Mosqueda HC COMPLETE BLD COUNT 2019-06-10 08:30:00 Kristal Mosqueda W/AUTO DIFF THYROID STIMULATING 2019-06-10 08:30:00 Kristal Mosqueda HORMONE PHOSPHORUS LEVEL 2019-06-10 08:30:00 Kristal Mosqueda XR CHEST 1 VW PORTABLE 2019-06-10 05:57:00 cR Delgado on Sabianism BLOOD CULTURE, AEROBIC & 2019-06-10 04:50:00 Tasha Tovar ANAEROBIC BLOOD CULTURE, AEROBIC & 2019-06-10 04:40:00 Tasha Tovar ANAEROBIC MRSA SCREEN CULTURE 2019-06-10 03:25:[address] CHEST EXTERNAL STUDY 2019-06-09 17:56:00 Kristal Mosqueda XR CHEST EXTERNAL STUDY 2019-06-09 16:36:00 Kristal Mosqueda US VASCULAR EXTERNAL STUDY 2019-06-09 15:41:00 Kristal Mosqueda ECG 12-LEAD 2019-06-01 10:14:34 Luann Garland Met hodist BASIC METABOLIC PANEL 2019-06-01 06:08:00 Luann Garland on Sabianism HC COMPLETE BLD COUNT 2019-06-01 06:08:00 Luann Garland on Sabianism W/AUTO DIFF B NATRIURETIC PEPTIDE 2019-06-01 06:08:00 Luann Garland on Sabianism TROPONIN 2019-06-01 06:08:00 Luann Garland Met hodist ESTIMATED GFR 2019-06-01 06:08:00 Luann Garland Met hodist ECG 12-LEAD 2019-06-01 05:45:12 Luann Garland Met hodist BASIC METABOLIC PANEL 2019-05-31 14:58:00 Luann Garland on Sabianism HC COMPLETE BLD COUNT 2019-05-31 14:58:00 Luann Garland on Sabianism W/AUTO DIFF B NATRIURETIC PEPTIDE 2019-05-31 14:58:00 Luann Garland on Sabianism TROPONIN 2019-05-31 14:58:00 Luann Garland Met hodist ESTIMATED GFR 2019-05-31 14:58:00 Luann Garland Met hodist HC ECHO 2-D F/UP LIMITED 2019-05-30 10:50:00 Barbara Dunham ECG PRE/POST OP 2019-05-30 04:03:06 Barbara Dunham BASIC METABOLIC PANEL 2019-05-30 04:00:00 AgugYuliana boo MAGNESIUM LEVEL 2019-05-30 04:00:00 AgugoYuliana HC COMPLETE BLD COUNT 2019-05-30 04:00:00 AgugYuliana booist W/AUTO DIFF ESTIMATED GFR 2019-05-30 04:00:00 AgugoYuliana XR CHEST 1 VW PORTABLE 2019-05-29 18:15:00 Barbara Dunham on Sabianism EP PACEMAKER INSERTION NEW 2019-05-29 17:34:00 Sergei Hernandez OR REPLACEMENT TTE COMPLETE, WO CONTRAST, 2019-05-29 11:58:53 Barbara Dunham W DOPPLER ([id number]) B NATRIURETIC PEPTIDE 2019-05-29 10:24:00 AgugoYuliana ECG 12-LEAD 2019-05-29 09:23:48 Sergei Hernandez HC COMPLETE BLD COUNT 2019-05-28 17:00:00 Launn Garlandist W/AUTO DIFF PROTHROMBIN TIME WITH INR 2019-05-28 17:00:00 Luann Garland PARTIAL THROMBOPLASTIN 2019-05-28 17:00:00 Luann Garland Sabianism TIME (PTT) COMPREHENSIVE METABOLIC 2019-05-28 16:14:00 Luann Garlandist PANEL THYROID STIMULATING 2019-05-28 16:14:00 Luann Garland HORMONE PHOSPHORUS LEVEL 2019-05-28 16:14:00 Luann Garland Me thodist MAGNESIUM LEVEL 2019-05-28 16:14:00 Luann Garland Met miosesist ESTIMATED GFR 2019-05-28 16:14:00 Luann Garland Met hodist EMG 2019-02-24 12:28:20 Bettie Vega Meth odist MRI LUMBAR SPINE WO 2019-02-24 09:52:00 Bettie Vega Gomez Sab[facility]ism CONTRAST Plan of Care Planned Activity Planned Date Details Comments Source Future Scheduled 2019-11-11 INFLUENZA VACCINE [place] [facility] Test 00:00:00 [code = INFLUENZA VACCINE] Future Scheduled 2018 65+ PNEUMOCOCCAL Gomez [facility] Test 00:00:00 VACCINE (1 of 2 - PCV13) [code = 65+ PNEUMOCOCCAL VACCINE (1 of 2 - PCV13)] Future Scheduled 2003-09-16 BREAST CANCER [place] Me thodist Test 00:00:00 SCREENING [code = BREAST CANCER SCREENING] Future Scheduled 2003-09-16 COLONOSCOPY SCREENING [place] [facility] Test 00:00:00 [code = COLONOSCOPY SCREENING] Future Scheduled 2003-09-16 SHINGLES VACCINES (#1) [place] [facility] Test 00:00:00 [code = SHINGLES VACCINES (#1)] Future Scheduled 1974 Screening for [facility] thodist Test 00:00:00 malignant neoplasm of cervix (procedure) [code = 977066162] Future Scheduled 1963-09-16 DIABETIC FOOT EXAM [place] [facility] Test 00:00:00 [code = DIABETIC FOOT EXAM] Future Scheduled 1963-09-16 URINE MICROALBUMIN [place] [facility] Test 00:00:00 [code = URINE MICROALBUMIN] Future Scheduled 1955 DIABETIC RETINAL EYE Jose ston [facility] Test 00:00:00 EXAM [code = DIABETIC RETINAL EYE EXAM] Encounters Start End Encounter Admission Attending Care Care Encounter Source Date/Time Date/Time Type Type Clinicians Facility Department ID 2019-06-09 2019-06-12 Inpatient L[place], [place] [address] [id number] [facility] 00:00:00 00:00:00 SRINIVASAN [address] 2019-05-28 2019-06-01 Inpatient WILMAN, [facility] 060 [id number] 29 [facility] 00:00:00 00:00:00 LUANN [address] 2019-02-24 2019-02-24 [id number] [facility] 00:00:00 00:00:00 BETTIE [address] Results Test Description Test Time Test Comments Results Result Comments Source Blood culture, aerobic & anaerobic 2019-06-15 11:03:13 Test Item Value Reference Range Interpretation Comme nts Blood culture isolate No growth after 5 days of Specimen InformationSpecimen (test code = 600-7) incubation. Source: BloodSpecimen Site: Peripheral Fore arm Right [facility] MethodistCT Chest External [id number] 08:37:19This exam was not acquired at a Sabianism facility and has not been interpreted by a Sabianism Provider. The exam was imported into our imaging system.[facility] MethodistUS Vascular External [id number] 08:36:55This exam was not acquired at a [facility]ism facility and has not been interpreted by a Sabianism Provider. The exam was imported into our imaging system.[facility] MethodistXR Chest External [id number] 08:36:34This exam was not acquired at a Sabianism facility and has not been interpreted by a Sabianism Provider. The exam was imported into our imaging system.[facility] MethodistMRSA screen [id number] 13:27:26 Test Item Value Reference Interpretation Comments Range MRSA screen No Methicillin Specimen culture Resistant InformationSpec imen isolate (test Staphylococcus Source: Nare sSpecimen code = 1754) aureus isolated. Site: Not s pecified [facility] MethodistArterial blood [id number] 09:22:03 Test Item Value Reference Range Interpretation Comments pH, arterial (test code = 2744-1) 7.40 7.35-7.45 pCO2, arterial (test code = 39 35- 45 mmHg 2018-8) pO2, arterial (test code = 74 80- 90 mmHg L 2703-7) Bicarbonate, arterial (test code 24.1 mmol/L 21-28 = 1960-4) Base excess, arterial (test code 0 -2 - 2 mEq-L = 1925-7) O2 saturation, arterial (test 95 % 95-100 code = 2708-6) Lab Interpretation (test code = Abnormal 26929-8) [facility] MethodistManual [id number] 04:52:41 Test Item Value Reference Range Interpretation Comments Manual differential (test code = PERFORMED 16662-8) Neutrophils (test code = 56.0 % 39-69 46629-4) Lymphocytes (test code = 34.0 % 25-45 92941-8) Monocytes (test code = 43740-1) 6.0 % 0-10 Eosinophils (test code = 4.0 % 0-5 53372-5) Basophils (test code = 53468-0) 0.0 % 0-1 Metamyelocytes (test code = 0 % 740-1) Promyelocytes (test code = 0 % 783-1) Platelet slide review (test code Dede slt incr = 22522-6) Anisocytosis (test code = 702-1) Moderate Polychromasia (test code = Moderate 80889-2) [facility] MethodistCBC with platelet and [id number] 04:52:31 Test Item Value Reference Range Interpretation Comments WBC (test code = 57811-0) 13.61 4.50- 11.00 k/uL H RBC (test code = 56905-2) 3.03 m/uL 4.2-5.5 L HGB (test code = 718-7) 8.6 g/dL 12-16 L HCT (test code = 4544-3) 28.1 % 37-47 L MCV (test code = 787-2) 92.7 fL 82-100 MCH (test code = 785-6) 28.4 pg 27-34 MCHC (test code = 786-4) 30.6 g/dL 31-37 L RDW - SD (test code = 62984-4) 55.9 fL 37-55 H MPV (test code = 40799-0) 10.9 fL 8.8-13.2 Platelet count (test code = 415 150- 400 k/uL H 05819-2) Nucleated RBC (test code = 0.00 /100 WBC 18798-2) Neutrophils (test code = 93252-7) 56.0 % 39-69 Lymphocytes (test code = 11995-7) 34.0 % 25-45 Monocytes (test code = 91766-7) 6.0 % 0-10 Eosinophils (test code = 32952-6) 4.0 % 0-5 Basophils (test code = 66527-1) 0.0 % 0-1 Lab Interpretation (test code = Abnormal 24978-2) [facility] MethodistOccult blood, [id number] 04:50:26 Test Item Value Reference Range Interpretation Comments Occult blood, Negative for Specimen stool (test occult blood. InformationSpe cimen code = Source: StoolSp ecimen 2334-1) Site: Nonpreser denzel [facility] MethodistBasic metabolic [id number] 03:11:58 Test Item Value Reference Range Interpretation Comments Sodium (test code = 2951-2) 144 135- 148 mEq/L Potassium (test code = 2823-3) 4.9 3.5- 5.0 mEq/L Chloride (test code = 2075-0) 106 98- 112 mEq/L CO2 (test code = 8-9) 24 24- 31 mEq/L Anion gap (test code = 88796-0) 14@ANIO 7- 15 mEq/L BUN (test code = 3094-0) 30 mg/dL 8-23 H Creatinine (test code = 2160-0) 1.77 mg/dL 0.5-0.9 H Glucose (test code = 2345-7) 163 mg/dL 65-99 H Calcium (test code = 93117-9) 8.1 mg/dL 8.8-10.2 L Lab Interpretation (test code = Abnormal 28674-6) Jason MethodistMagnesium [id number] 03:11:58 Test Item Value Reference Range Interpretation Comments Magnesium (test code = 59972-7) 2.0 mg/dL 1.6-2.4 [facility] MethodistPhosphorus [id number] 03:11:58 Test Item Value Reference Range Interpretation Comments Phosphorus (test code = 2777-1) 3.2 mg/dL 2.4-4.5 Gomez MethodistEstimated [id number] 03:11:58 Test Item Value Reference Range Interpretation Comments Estimated GFR (test 34 mL/min/1.73 m2 Mayito drake Units code = 5488) InterpretationG 1 >=90 [place] l or highG2 60-89 Mildly decrease dG3a 45-59 Mil dly to moderately decr ottdqA2b 30-44 Moderately to s everely decreasedG4 15-29 Severe ly decreasedG5 <15 Kidney yasmin lureThe eGFR was calcul ated using the Chron ic Kidney Disease Epidemiology Collaboration ( CKD-EPI) equation. Interpretation is based on recommendati ons of the National Ki dney Foundation-Kidn ey Disease Outcome s Quality Initiat christine (NKF-KDOQI) pub lished in 2013. Lab Interpretation Abnormal (test code = 36275-4) Jason NegreteVancomycin level, [id number] 03:10:33 Test Item Value Reference Range Interpretation Comments Vancomycin, trough 24.2 ug/mL 10-20 HH Therapeut ic Ranges: (test code = 72038-7) Peak 30.0 - 40.0 ug/mL T rough 10.0 - 20.0 ug/mL Lab Interpretation Abnormal (test code = 02570-1) [facility] MethodistPartial thromboplastin time, [id number] 03:00:50 Test Item Value Reference Range Interpretation Comments PTT (test code = 103.7 23.0- 36.0 sec PTT thera peutic range 29316-2) for unfractiona masuod heparin is61.0- 112.0 seconds which corresponds to Anti-Xa0.3-0.7 U/ml.PTT result s called to and r ead back by TOMMY LOPEZ/MMWT20 a t 06/12/2019 02: 56 by KCP. Lab Interpretation Abnormal (test code = 16585-6) [facility] MethodistECG 12 [id number] 10:50:20 Test Item Value Reference Range Interpretation Comments Ventricular rate (test 64 code = 253) Atrial rate (test code 64 = 255) TX interval (test code 142 = 266) QRSD interval (test 94 code = 260) QT interval (test code 410 = 264) QTC interval (test code 422 = 265) P axis 1 (test code = 35 267) QRS axis 1 (test code = -7 268) T wave axis (test code -26 = 270) EKG impression (test Normal sinus code = 273) rhythm-Moderate voltage criteria for LVH, may be normal variant ( R in aVL , Ambler product )-Nonspecific T wave abnormality-Abnormal ECG-In automated comparison with ECG of 01-JUN-2019 10:14,-Sinus rhythm has replaced Electronic atrial pacemaker-Electronical ly Signed By Delilah FENTON, Thomas ([id number]) on 06/11/2019 10:50:14 AM [facility] MethodistUs duplex venous upper [id number] 10:05:00Interface, Radiology Results In - 06/11/2019 10:05 AM [facility] Vascular Ultrasound Laboratory Upper Extremity Venous [id number] [place] [address] Pat.Name: EMELI PEREZ Jennifer.ID: [id number] .Date: 06/11/2019 Refer.MD: KRISTAL MOSQUEDA MD Exam Time: 7:58:00 AM Study Type:UE Venous Height: 62in Age: 6 1955,63Y Sex: FEMALE Sonogrphr: Braeden Kim RN, RVT Pat. Stat.:Inpatient Room: [facility] Tape Vol: DP, CPT - 4: 90081 Echo Event ID:[id number] Order ID: [id number] Reason for Study:Left arm pain and edema status post pacemakerinsertion 05/29/2019Procedures: Colorflow, Grayscale/2D, Pulsed wave DopplerRace: B SUMMARY: DUPLEX SCAN OBSERVATIONS Right LeftIJ Normal NormalSubclavian Normal NormalAxillary Normal ObstructedBrachialNormal NormalBasilic Normal NormalCephalic Normal ContinuousRIGHT: There is normal compressibility and no evidence of echogenicmaterial noted within the lumen of the visualized veins. Colorflow andDoppler signals are normal.LEFT: The axillary vein is not compressible and filled with softechogenicmaterial. Colorflow is absent. PRELIMINARY FINDINGS1. Venous thrombosis of the left axillary vein.2. Patient unable to perform thoracic outlet maneuvers. PHYSICIAN INTERPRETATION Venous examination of the both upper extremities and neck demonstrateddeep venous thrombosis of the left axillary vein . FINDINGS: --Signed 06/11/2019 10:05 Td Fuentes MD, [facility] MethodistComprehensive metabolic [id number] 04:39:25 Test Item Value Reference Range Interpretation Comments Sodium (test code = 142 135- 148 mEq/L 2951-2) Potassium (test code = 5.0 3.5- 5.0 mEq/L 2823-3) Chloride (test code = 103 98- 112 mEq/L 2075-0) CO2 (test code = 2027-) 26 24- 31 mEq/L Anion gap (test code = 13@ANIO 7- 15 mEq/L 37147-2) BUN (test code = 3094-0) 29 mg/dL 8-23 H Creatinine (test code = 1.92 mg/dL 0.5-0.9 H 2160-0) Glucose (test code = 126 mg/dL 65-99 H 2345-7) Calcium (test code = 8.3 mg/dL 8.8-10.2 L 26895-0) Protein (test code = 7.2 g/dL 6.3-8.3 [place] 9994.6-7.0 2885-2) g/dL1 dgao2139.4-7.6 g/dL7 months-0zvxt216 .1- 7.3 g/dL1-2 peovr562.6-7.5 g/dL>3 jlgyg434.0-8.0 g/yN13-2575914. 3-8 .3 g/dL Albumin (test code = 2.7 g/dL 3.5-5 L 1751-7) A/G ratio (test code = 0.6 0.7-3.8 L 1759-0) Alkaline phosphatase 160 U/L 35-104 H (test code = 6768-6) AST (test code = 1920-8) 30 U/L 10-35 ALT (test code = 1742-6) 16 U/L 5-50 Total bilirubin (test <0.2 0-1.2 code = 1974-2) Lab Interpretation (test Abnormal code = 70724-9) [facility] MethodistUrinalysis screen and microscopy, with reflex to culture 2019-06-10 12:40:51 Test Item Value Reference Range Interpretation Comments Specimen site (test code = Clean catch 0914802) Color, UA (test code = 5778-6) Straw Appearance, UA (test code = Clear 5767-9) Specific gravity, UA (test code = 1.013 1.001-1.035 5811-5) pH, UA (test code = 5803-2) 5.0 5.0-8.5 Protein, UA (test code = 61121-7) Negative Negative Glucose, UA (test code = 06081-1) Negative Negative Ketones, UA (test code = 2514-8) Negative Negative Bilirubin, UA (test code = Negative Negative 5770-3) Blood, UA (test code = 5794-3) Negative Negative Nitrite, UA (test code = 5802-4) Negative Negative Urobilinogen, UA (test code = <2.0 <2.0 58746-3) Leukocyte esterase, UA (test code Negative Negative = 5799-2) Epithelial cells, UA (test code = 2 /HPF 5787-7) WBC, UA (test code = 5821-4) None seen 0- 4 /HPF RBC, UA (test code = 47986-5) <1 0- 5 /HPF Bacteria, UA (test code = None seen None seen 82044-0) Yeast, UA (test code = 12660-9) None seen Yeast with pseudohyphae, UA (test None seen code = 63935-9) Hyaline casts, UA (test code = 1 /LPF 5796-8) Jason NegreteUrine [id number] 12:05:19 Test Item Value Reference Range Interpretation Comments Urine culture (test SEE COMMENT Bacteriu arlene screen code = 7881779) negative. Jason NegreteB natriuretic [id number] 11:16:02 Test Item Value Reference Range Interpretation Comments BNP (test code = 11731-2) 229 pg/mL 0-100 H Lab Interpretation (test code = Abnormal 89263-1) Jason NegreteHemoglobin [id number] 11:07:02 Test Item Value Reference Range Interpretation Comments Hemoglobin A1C (test 7.7 % 4-5.6 H HbA1c c utoffs for code = 51586-4) diagnosing diabetes:4.0% - 5.6% = normal5.7% - 6.4% = increased risk for diabetes (prediabetes)9> =6.5% = [id number] s for glycemic contro l (ADA 2016)< 7.0% Ta rget for non adults with aj betes. More or less stringent targe ts may be appropriate for individual gagan ents. <7.5% Target for Children and adolescents wit h type 1 diabetes. Lab Interpretation (test Abnormal code = 65668-9) Jason MethodistThyroid stimulating [id number] 09:52:04 Test Item Value Reference Range Interpretation Comments TSH (test code = 3016-3) 1.46 0.27- 4.20 uIU/mL Jason MethodistLipid [id number] 09:48:02 Test Item Value Reference Interpretation Comments Range Cholesterol (test 151 mg/dL <200 code = 2093-3) Triglycerides (test 155 mg/dL <150 H code = 2571-8) HDL cholesterol 25 mg/dL >40 L (test code = 2085-9) LDL cholesterol 90 mg/dL <100 Result obtai federica by direct (test code = 2089-1) LDL virgil surement Lipid panel SeeBelow Total Cholester ol (mg/dL) interpretation (test < 200 code = 35707-5) Desirable 200-239 Borderline -high >=240 Hi gh Triglyceri deidra (mg/dL) <150 No rmal 150-199 Borderline-high 200-499 High >=500 Very high HDL Choles terol (mg/dL) <40 Low (male) < 40 Low (female) L DL Cholesterol (mg /dL) <100 Optimal 1 00-129 Near or above o ptimal 130-159 Borderline-high 160-189 High >=190 Very high Risk Cat ergories that modify LDL goals.Risk Catergories LDL goal (mg/dL )CHD and CHD risk equiva lent <100 (10-year risk >20%)Multiple ( 2+) risk factors < 130 (10-year risk = <20%)0-1 risk factors <160 (<10-ye ar risk) Defining levels of lipids in metabolic syndromeTriglyc erides > =150 mg/dLHDL Choles terol Men <40 mg/dL Women <40 mg/dL Non-HDL cholest luly is a second target f or therapy in personswith high triglycerides ( >=200 mg/dL) Lab Interpretation Abnormal (test code = 85996-8) Jason MethodistLactic acid [id number] 09:48:00 Test Item Value Reference Range Interpretation Comments Lactic acid (test code = 20106-8) 1.6 mmol/L 0.5-2.2 Gomez L[id number] 09:29:32 Test Item Value Reference Range Interpretation Comments Troponin (test code 0.035 ng/mL 0-0.04 In patie nts suspected = 65326-6) of having a sidney cardial infarction, monique marie with all other appro priate clinical measur es and actions includi ng ECG and other diagn ostics as appropriate, measure Ultra TnI at 0 hrs and at 3 hrs.Myocar dial infarction VERY LIKELYThe 0 hr TnI level is > 0.10 ng/mL -------- -------- -------- --------Myocard ial infarction LIKE LYThe 0 hr TnI level is > 0.04 ng/mL and 3 hr level is increased or de creased by at least 0.0 20 ng/mL -------- -------- -------- ---Myocardial infarction VERY UNLIKELYBoth th e 0 hr and 3 hr TnI le vels <= 0.04 ng/mL(with in normal limits) OR 0 hr is > 0.04 ng/mL and 3 hr is increased OR decreased by le ss than 0.020 ng/mL Jason NegreteProthrombin time with [id number] 09:24:07 Test Item Value Reference Range Interpretation Comments Prothrombin time (test 14.9 11.5- 14.5 sec H code = 5902-2) INR (test code = 1.2 The Intern[facility] tiformerly [facility] 60530-7) Normalized Rati o (INR) is a therapeuti c monitoring tool for patients who ar e stable on oral anticoagulant t herapy. An INR of 2.0-3 .0 is suggested for d eep vein thrombosis/pulm onary embolism. Lab Interpretation Abnormal (test code = 70210-9) Jason NegreteXR Chest 1 Vw [id number] 06:53:15Hm Interface, Radiology Results 06/10/2019 6:56 AM CSTEXAMINATION: XR CHEST 1 VW PORTABLECLINICAL HISTORY: 63 years Female Pulmonary edema TMHCOMPARISON: [facility]1.Left chest wall cardiac device is similar to prior. Cardiomediastinal silhouette is stable. Central vasculature is at the upper limits of normal. Previous groundglass opacities have improved, probably was edema. 2.The lungs are hypoinflated with bibasilar atelectasis. There is no new consolidation,effusion or pneumothorax.[facility]-[id number] MethodistECG Pre/Post De-[id number] 15:25:43 Test Item Value Reference Range Interpretation Comments Ventricular rate (test 67 code = 253) Atrial rate (test code 67 = 255) TX interval (test code 150 = 266) QRSD interval (test 92 code = 260) QT interval (test code 412 = 264) QTC interval (test code 435 = 265) P axis 1 (test code = 36 267) QRS axis 1 (test code = -1 268) T wave axis (test code 174 = 270) EKG impression (test Normal sinus rhythm code = 273) with sinus arrhythmia-Voltage criteria for left ventricular hypertrophy-T wave abnormality, consider lateral ischemia-Abnormal ECG-In automated comparison with ECG of 29-MAY-2019 09:23,-T wave inversion now evident in Lateral leads- [place] MethodistElectrophysiology [id number] 08:27:25TITLE OF PROCEDURE:Dual-chamber pacemaker placement.PREOPERATIVE DIAGNOSES:1. Sinus node dysfunction.2. Sinus arrest with 8.4-second pause.3. Presyncope consequent to sinus node dysfunction and sinus arrest with8.4-second pause.POSTOPERATIVE DIAGNOSES:1. Sinus node dysfunction.2. Sinus arrest with 8.4-second pause.3. Presyncope consequent to sinus node dysfunction and sinus arrest with8.4-second pause.PROCEDURES PERFORMED:1. Left upper extremity venogram.2. Dual-chamber pacemaker placement.3. IV conscious sedation.BRIEF HISTORY AND CLINICAL BACKGROUND:This is a 63-year-old woman transferred from [facility] for the aforementionedsymptomatic pause. She relates that she was in bed, but awake, felt transientlydizzy. Shortly thereafter nurses came in to check on her. She had an8.4-second pause and was transferred at the recommendation of Dr. Ry Peñafor pacemaker insertion. She is onno offending medications. 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 In the absence of a history of cardiac arrest or familialhistory of cardiac arrest, there is no indication for defibrillator insertion atthis time.DESCRIPTION OF PROCEDURE:Informed consent was obtained. Intravenous antibiotics were infusedappropriately. The chest was prepped and draped in the usual sterile fashionand local anesthesia was achieved with 1% lidocaine. An upper extremityvenogram was performed to identify the location of the axillary and subclavianvein and access was achieved. Guide wires were introduced under fluoroscopicguidance and advanced into the inferior vena cava.Using a sharp knife, cautery, and blunt dissection, a pocket was formed be lowthe plane of the pectoralis fascia. The RV and atrial leads were placed intothe venous system using standard technique. The RV pace/sense lead was placedinto the RV apex and tested. After the thresholds were deemed adequate the leadwas anchored in place. Maximum output pacing was performed to ensure that therewas no diaphragmatic stimulation, and none was seen. The lead was anchored inplace using 0-Ethibond sutures around the lead collar.A bipolar screw-in lead was affixed into the right atrium. Sensing and pacingthresholds were then performed. After they were found to be adequate, maximumoutput pacing was performed to ensure that there was no diaphragmaticstimulation, and none was seen. The lead was anchored in place using 0-Ethibondsutures around the lead collar.Fluoroscopy was repeated to ensure proper lead placement. The pacemaker pocketwas visually, manually, and radiographically inspected to ensure there were nogauze or sponges in the pocket. It was then washed using antibiotic solution. Gloves and drapes were changed as needed. The pacemaker generator packet wasthen openedand was attached to the leads and the set screws were tightened. Each lead was gently tugged upon toensure it was affixed within the header. After proper pacemaker function was confirmed, the lead slack and pacemaker wereplaced in the pocket. The pacemaker was anchored to the pectoralis muscle using0-Ethibond suture. The skin incision was then closed in layers using 0-Vicrylsutures. Final skin closure was achieved with stainless steel alessandra and skinadhesive.COMPLICATIONS:None.FINDINGS:1. The left subclavian vein travelled in its usual course substantially moreinferior requiring that the insertion point within the body of the subclavianvein be fairly low and medial.2. The pacemaker is a Medtronic Gayatri XT DR MRI, model W1DR01, serial#[id number].3. Atrial lead is a 4076, serial #[id number]. Measured P-wave 3 millivolt,pacing threshold 0.5 volt, current 0.9 mA, impedance 483 ohms.4. The ventricular lead is a 4076-52 cm, serial #[id number]. Measured R-wave14 millivolts, pacing threshold0.5 volt, current 0.8 mA, impedance 756 ohms.5. Conscious sedation was Versed and fentanyl.6. Estimated blood loss 50 mL.CONCLUSIONS:Successful dual-chamber pacemaker placement.RECOMMENDATIONS:1. The patient to recovery, then to her room.2. Repeat the echocardiogram with intravenous echo contrast to ascertainwhether she has a true LV noncompaction syndrome or not.[facility] echo 2d limited or follow up [id number] 15:40:00Interface, Radiology Results In - 05/30/2019 3:40 PM [facility] Echocardiography Report [address] [place] [address] Pat.Name: EMELI PEREZ Pat.ID: [id number].Date: 05/30/2019 Refer.MD: LUANN GARLAND MD Exam Time: 10:41:00 AM Study Type:Routine Echo Height: 60in Weight: 223lb BSA: 1.96 m2 Age: 6 1955,63Y Sex: FEMALE BP: 147/71 HR: 64 bpm Sonogrphr: LISS Cox Pat. Stat.:Inpatient Room: A743 Study Status:Final Echo Event ID:[id number] Order ID: [id number] Reason forStudy:evaluate for LV noncompaction USE CONTRAST PLEASEProcedures: Intravenous Definity Contrast, 2DEcho,Colorflow DopplerLimitedRace: B S UMMARY: Limited study; contrast images are not suggestive of LV compaction.LV appears enlarged. Biplane LVEF 50%. FINDINGS:--------- MEASUREMENTS:---- 2DLV EF Biplane LVEDV 201 ml (59-136) Index 103 ml/m2 LV EF 50 % (55-75) LVESV 101 ml Index 52 ml/m2 LV SV 100 ml Left Ventricle LV CO 6.4 l/min LV CI 3.3 l/m/m2 Signed 05/30/2019 03:40 PMCipriano Klein M.D.[facility] MethodistEchocardiogram complete w contrast and 3D if [id number] 16:04:00Interface, Radiology Results In - 05/29/2019 4:14 PM [facility] Echocardiography Report [address] [place] [address] Pat.Name: EMELI PEREZ Pat.ID: [id number].Date: 05/29/2019 Refer.MD: LUANN GARLAND MD Exam Time: 11:30:00 AM Study Type:Routine Echo Height: 60in Weight: 221lb BSA: 1.95 m2 Age: 6 1955,63Y Sex: FEMALE BP: 161/81 HR: 64 bpm Sonogrphr: LISS Suresh Pat. Stat.:Inpatient Room: A743 Study Status:Revised Echo Event ID:[id number] Order ID: [id number] Reason forStudy:Evaluate EF pre PM implantProcedures: 2D Echo, Colorflow Doppler, StrainRace: B SUMMARY: Mildly dilated LV with mild systolic dysfunction. Apical images aresuggestive of LV non-compaction. Recommend further evaluation withCMR or echo contrast if clinically indicated.Elevated LV filling pressure.Low normal RV systolic function. FINDINGS: LV: LV size is mildly enlarged. Apical images are suggestive of LV non-compaction. Recommend further evaluation with CMR or echo contrast if clinically indicated. There is severe eccentric LV hypertrophy. An LV tendon is seen. This is a normal variant. Reduced average LV global longitudinal strain at -13%. LV EF is mildly depressed. Overall wall motion is mildly hypokinetic. Estimated EF is 45-49%.RV: RV size is normal. RV systolic function is lower limits of normal. LA: LA volume is severely enlarged.RA: RA size is normal.AO: Aortic root diameter is normal in size.VIDA: There is an an terior space consistent with a prominent epicardial fat pad.AV: No structural AV abnormalities noted.MV: No structural MV abnormalities noted.PV: No structural PV abnormalities noted. A trace of pulmonic regurgitation. TV: No structural TV abnormalities noted.Carrillo: LV relaxation is impaired. LV filling pressure is elevated.Other: Insufficient TR jet to estimate PA systolic pressure. MEASUREMENTS: 2DParasternal [place] Ao An 2.4 cm LVPWd 1.4 cm Ao Rtd 3 cm Index 1.6 cm/m2 LA Ds 4.8 cm IVSd 1.3 cm RWT 0.49 LVIDd 5.6 cm Index 2.9 cm/m2 LV Mass 322 g (87-129) LVIDs 4 cm LVM Index 165 g/m2 LV%fs 29 % LVOT 2.1 cm LA Sng Plane LA Area 31 cm2 (8.8-23.4) LA Vol 118 ml Index60 ml/m2 LA LngAx 6.8 cm RA Sng Plane RA Vol 29 ml Index 15 ml/m2 RA LngAx 5.2 cm RA Area 13 cm2 (8.3-19.5)LVOT LVOT Area 3.5 cm2 RVOT Stroke Vol RVOT 2.6 cm DOPPLERRVOT Stroke Vol RVOT VTI 18 cm RVOT CO 5.4 l/min RVOT SV 94 ml RVOT CI 2.8 l/min/m2 Signed 05/29/2019 4:14:16 Denis Hansen M.D.[facility] general [id number] 15:52:53 The patient has a chronic right L5 radiculopathy with new onset right S1 pain and comes in for an EMG study. 1) Motor conductions show absent right peroneal response. Moderate slowing of bilateral tibial nerves with decreased compound motor action potentials. Latencies are normal2) Sensory responses show absent superficial peroneal responses3) Bilateral H Reflex Responses are normal but low amplitude4) Intramuscular recordings of the bilateral legs suggest chronic denervation as noted above in right hamstring peroneus, anterior tibialis and EHL. The study suggests: Moderate, chronic right L5, S1 radiculopathies. 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 Lat. Prox lat. D. amp. P. Amp. Dist. Velocity Right Peroneal EDB absent Right Peroneal TA Right Tibial 5 14.8 2.2 1.8 31.5 34 Right Peroneal F Wave absent Right Tibial F Wave 59.8 Right Sensory Nerves Dist. Lat. Prox lat. Dist. amp. Prox Amp. Distance VelocityRight Sural 4.2 9 14.0 Right Superficial Peroneal absent 12.0Right Saphenous Left Motor Nerves Dist. Lat. Prox lat. D. amp. P. Amp. Dist. Velocity Left Peroneal EDB 3.0 10.7 1.8 1.3 31 40 Left Peroneal TA Left Tibial 3.9 12.7 0.8 0.6 31 34 Left Peroneal F Wave 53.7 Left Tibial F Wave absent Left Sensory Nerves Dist. Lat. Prox lat. Dist. amp. Prox Amp. Distance VelocityLeft Sural 3.8 9 14.0 Left Superficial Peroneal absent 12.0 Left SaphenousRight Soleus (H Reflex Response Latency): 32.2, low amplitude Left Soleus (H Reflex Response Latency): 32, low amplitude Electromyography (Motor Unit in mV; H=High; L=Low; P=Polyphasic; NS=Non-specific) Right Leg Fibs. Pos. Waves Fasc. Polyphasia Motor Units RecruitmentVas. Medialis wnl wnl wnl wnl wnl wnlAnt. Tibialis wnl wnl wnl wnl 3-10 -2-3Peroneus Longus wnl wnl wnl wnl 3-10 -1-2Vas.Lateralis wnl wnl wnl wnl wnl wnl Ext. Hallicus L. wnl wnl wnl 20HP 4 -4Hamstring wnl wnl wnl + 4-12 -2 Left Leg Fibs. Pos. Waves Fasc. Polyphasia Motor Units RecruitmentVas. Medialis wnl wnl wnl wnl wnl wnlAnt. Tibialis wnl wnl wnl wnl wnl wnlPeroneus Longus wnl wnl wnl wnl wnl wnlVas. Lateralis wnl wnl wnl wnl wnl wnl Ext. Hallicus L. wnl wnl wnl 20HP wnl -1[facility] MethodistMRI Lumbar Spine Wo [id number] 10:19:30Hm Interface, Radiology Results 02/24/2019 10:22 AM CSTEXAMINATION: MRI LUMBAR SPINE WO CONTRASTCLINICAL HISTORY: M54.16 Radiculopathy lumbar region, right s1 pain hx of lumbar fusionCOMPARISON: July 23, 2009FINDINGS:Lowermost functional disc space is assumed to be L5-S1.Straighteningof the cervical spine.No suspicious focal bone marrow lesionsVisualized spinal cord is normal in appearance.L2-S1 fusion transpedicular screws and interconnecting rods. There is ankylosis at the L3-S1 disc spaces.There is partial bony bridging at the L1-L2 disc space. There is increased T2/STIR signalwithin the disc space at L1-L2. No associated bone marrow edema or endplate irregularity. Findings are likely degenerative in nature.L1-2: No canal narrowing. Foramina are clear.L2-3: Laminectomy changes. No central canal narrowing. Foramina are clear.L3-4: Laminectomy changes. No central canal narrowing. Foramina appear clear. Hardware limits evaluation.L4-5: Laminectomy changes. No central canal narrowing. Facet arthropathy and osteophytosis causes some degree of narrowing of the right foramen, likely mild to moderate in degree. Hardware artifact limits evaluation.L5-S1: Laminectomy changes. No central canal narrowing. Facet arthropathy and osteophytosis causes some degree of narrowing of the right foramen which is likely moderate in degree. Hardware artifact limits the evaluation.IMPRESSION:L2-S1 fusion and decompression changes without residual canal narrowing.Slightly limited evaluation of the foramina due to hardware artifact. Likely mild to moderate foraminal narrowing at right L4-5 and right T1-[id number] Sabianism
[2019-09-05 11:37] VITALS: TEMP 97.9
[2019-09-05 12:03] VITALS: BP 137/59; O2SAT 100
--- NOTE | 2019-09-11 22:23 | OP ---
Date of Procedure: 09/05/2019 Surgeon: KWESI EUBANKS Ceiling Cleaner: Kwesi Eubanks. Procedure Performed: Selective coronary angiogram. Access: Right radial artery 6-Hungarian closed with TR band. Piping Design Specialist: Junaid Elizabeth M.D. Indication: Unstable angina. Description Of Procedure: After patient signed informed consent, she was brought into the cardiac ca theterization laboratory, prepped and draped in the usual sterile fashion and the right iliac artery was accessed using pediatric micropuncture kit. Then 6-Hungarian sheath was placed in the radial artery and then we took a [place] catheter over the J-wire into the aortic root and engaged the left main cor onary artery and then the right coronary artery and obtained standard views. Then catheters were rem cindy and the sheath was removed and TR band. Total sedation time was 15 minutes. Impression: No significant coronary artery disease. Recommendation: Aggressive risk factor modification and the patient will be discharged after recover y time. /GOLDIE Voice ID: [id number] Report ID: [id number]
== END 2019-09-05 11:57 | disposition home or self-care (01) ==
LOC: CCL 08:24
DX: I20.0 Unstable angina (principal); I10 Essential (primary) hypertension; Z88.0 Allergy status to penicillin; Z88.6 Allergy status to analgesic agent
CPT/HCPCS: 85025; 80048; 36415; 85610; 85730; 93458; C1893; J1644; J2250 ×2; J3010 ×2; J7040

== ENCOUNTER 2019-12-02 00:35 | Inpatient (IN) | payer OTHER ==
--- OUTSIDE RECORDS SUMMARY | 2019-12-02 00:39 | XMS REPORT | Clinical Summary ---
:1955 Author Organization [facility] Address [address] [place] [address] Care Team Providers Name Role Phone Constance [...] unknown Medications Medication Sig Dispensed Refills Start End Date Status Date simvastatin Take 1 tablet 0 Acti ve (ZOCOR) 40 MG by mouth 5 tablet daily. furosemide (LASIX) Take 1 tablet 3 Active 40 mg tablet by mouth 2 9 (two) times a day. ALPRAZolam (XANAX) 3 (three) 1 A ctive 0.5 MG tablet times a day as 9 needed. HYDROcodone-acetam Take 1 tablet 0 Active inophen (NORCO) by mouth 3 9 7.5-325 mg per (three) times tablet a day. carvediloL (COREG) Take 6.25 mg 0 08/17/19 Active 6.25 MG tablet by mouth 2 0 21 (two) times a day. clonIDINE HCl Take 0.2 mg by 0 08/17/19 A ctive (CATAPRES) 0.2 MG mouth 3 0 21 tablet (three) times a day. gabapentin 300 mg 3 0 Active (NEURONTIN) 300 mg (three) times 9 capsule a day. losartan (COZAAR) Take 25 mg by 0 Active 25 MG tablet mouth daily. 0 spironolactone Take 50 mg by 0 08/17/19 A ctive (ALDACTONE) 50 MG mouth daily. 3 21 tablet gabapentin 2-3 tabs po 270 capsule 6 Activ e (Neurontin) 300 mg tid 0 capsule clonIDINE HCl Take 0.2 mg by 3 06/12/19 D iscontinued (CATAPRES) 0.2 MG mouth 2 (two) 9 20 (Stop Taking at tablet times a day. Dischar ge) nadolol (CORGARD) Take 1 tablet 3 06/01/19 Discontinued 40 MG tablet by mouth 9 20 (Stop T aking at daily. Discharge) gabapentin Take 1 capsule 0 06/01/19 Disc ontinued (NEURONTIN) 300 mg by mouth. 9 20 ( Stop Taking at capsule Discharge) allopurinoL Take 300 mg by 0 06/12/19 Dis continued (ZYLOPRIM) 300 MG mouth daily. 20 (Stop Taking at tablet Discharge) gabapentin Take 1 capsule 90 capsule 0 07/01/19 Exp ired (NEURONTIN) 300 mg (300 mg total) 0 20 capsule by mouth 3 (three) times a day for 30 days. nadoloL (CORGARD) Take 1 tablet 30 tablet 0 06/12/19 Discontinued 80 MG tablet (80 mg total) 0 20 (St op Taking at by mouth daily Disch arge) for 30 days. amLODIPine Take 1 tablet 30 tablet 0 06/01/19 Disco ntinued (NORVASC) 5 mg (5 mg total) 0 20 (S top Taking at tablet by mouth daily Disch arge) for 30 days. apixaban (ELIQUIS) Take 10 mg by 74 tablet 0 0 Discontinued 5 mg tablet mouth twice 0 20 daily x7 days, then 5 mg by mouth twice daily thereafter clonIDINE HCl Take 1 tablet 30 tablet 0 07/12/19 Ex pired (CATAPRES) 0.2 MG (0.2 mg total) 0 20 tablet by mouth every morning for 30 days. clonIDINE Take 1 tablet 30 tablet 0 07/12/19 d (CATAPRES) 0.1 MG (0.1 mg total) 0 20 tablet by mouth every evening for 30 days. apixaban (ELIQUIS) Take 2 tablets 20 tablet 0 5 mg tablet (10 mg total) 0 20 by mouth 2 (two) times a day for 5 days. apixaban (ELIQUIS) Take 1 tablet 60 tablet 0 0 5 mg tablet (5 mg total) 0 20 by mouth 2 (two) times a day for 30 days. carvediloL (COREG) Take 1 tablet 60 tablet 0 0 6.25 MG tablet (6.25 mg 0 20 total) by mouth 2 (two) times a day for 30 days. doxycycline Take 1 capsule 14 capsule 0 06/19/19 Ex pired (VIBRAMYCIN) 100 (100 mg total) 0 20 MG capsule by mouth 2 (two) times a day with meals for 7 days. 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 11/22/2019 Travel 11/21/2019 Travel 11/17/2019 Travel 11/09/2019 Travel 11/08/2019 Telephone Neurology Maru Yee 11/07/2019 Hospital Encounter Radiology Bettie Vega MD radiculopathy 11/07/2019 Hospital Encounter Radiology Bettie Vega MD radiculopathy 11/07/2019 Hospital Encounter Radiology Bettie Vega MD radiculopathy 11/07/2019 Orders Only Neurology Bettie Vega MD radiculopathy (Primary Dx) 11/07/2019 Travel 11/03/2019 Travel 10/25/2019 Telephone Neurology Bettie Vega Cervical MD Mao radiculopathy (Primary Dx) 10/03/2019 Travel 06/15/2019 Patient Outreach Quality Deny Valladares, [facility] 06/15/2019 Patient Outreach Quality Deyn Valladares, [facility] 06/15/2019 Patient Outreach Quality Deny Valladares, [facility] 06/15/2019 Patient Outreach Quality Shana Witt, [facility] 06/15/2019 Patient Outreach Quality Shana Witt, [facility] 06/15/2019 Patient Outreach Quality Shana Witt, [facility] 06/14/2019 Patient Outreach Quality Shana Witt RN 06/09/2019 - Hospital Encounter General Internal Jaylin, DVT o f axillary vein, 06/12/2019 Medicine Kristal Hough MD acute left (HCC) Waqar Bourgeois, (Primary Dx) DO 06/09/2019 Intake Access 05/29/2019 Surgery Procedural Barbara Dunham Pacemaker [facility] Cardiology MD Navdeep new or replacem ent [[id number] (CPT)] 05/28/2019 - Hospital Encounter Cardiology Luann [...] of lumbar region with neurogenic claudication after 12/01/2018 Family History Medical History Relation Name Comments [...] Travel End No recent travel history available. COVID-19 Exposure Response Date Recorded In the last month, have you been in contact with No / Unsure 11/24/2019 10:10 AM CDT someone who was confirmed or suspected to have Coronavirus / COVID-19? Last Filed Vital Signs Vital Sign Reading Time Taken Comments Blood Pressure 188/71 11/22/2019 12:26 PM CDT Pulse 85 11/22/2019 12:26 PM CDT Temperature 36.2 C (97.1 F) 11/22/2019 12:26 PM CDT Respiratory Rate 18 06/12/2019 11:15 AM MECHANICAL ENGINEERING DIRECTOR Oxygen Saturation 99% 06/12/2019 11:15 AM MECHANICAL ENGINEERING DIRECTOR Inhaled Oxygen Concentration - - Weight 93.5 kg (206 lb 1.6 oz) 11/22/2019 12:26 PM CDT Height 152.4 cm (5') 11/22/2019 12:26 PM CDT Body Mass Index 40.25 11/22/2019 12:26 PM CDT Plan of Treatment Health Maintenance Due Date Last Done Comments DIABETIC RETINAL EYE EXAM 1955 DIABETIC FOOT EXAM 09/16/1963 URINE MICROALBUMIN 09/16/1963 BREAST CANCER SCREENING 09/16/2003 COLONOSCOPY SCREENING 09/16/2003 SHINGLES VACCINES (#1) 09/16/2003 65+ PNEUMOCOCCAL VACCINE (1 of 2 - PCV13) 2018 INFLUENZA VACCINE 01/11/2020 Implants Implanted Type Area Snuff Grinder Device Shelf Model / Identifier Expiration Serial / Date Lot Gayatri Xt Dr Kumari - [id number] Cardiac N/A: [id number] / Implanted: 05/29/2019 at [facility] (Quantity not on file) Pacemaker N/A / Generators Lead, Pacing Active Fixation Atrial Ster oid Eluting Polyurethane 45 Centimeter Capsure Fix Novus - [id number] Cardiac Pacing N/A: 1 04/26/2020 [id number] / Implanted: 05/29/2019 at [facility] (Quantity not on file) Leads or N/A [id number] / Electrodes or [id number] Accessories Lead Pace Trnsvns Actv-Fxtn Atrl Miguel Bipolar 52cm - [id number] Cardiac Pacing N/A: [employer] [facility] - 02/24/2021 LEAD [id number] / Implanted: 05/29/2019 at [facility] (Quantity not on file) Adri ds or N/A CARDIAC RYHTYM [id number] / Electrodes or MGMT [id number] Accessories Pacemaker Pacemaker Procedures Procedure Name Priority Date/Time Associated Diagnosis Comme nts EMG Routine 11/24/2019 1:31 Cervical Results for this PM CDT radiculopathy procedure are in the results section. MRI CERVICAL SPINE WO STAT 11/07/2019 9:51 Cervical Re sults for this CONTRAST AM CDT radiculopathy procedure are in the results section. X RAYS NO CHARGE MRI STAT 11/07/2019 8:08 Cervical Res ults for this AM CDT radiculopathy procedure are in the results section. X RAYS NO CHARGE MRI STAT 11/07/2019 8:07 Cervical Res ults for this AM CDT radiculopathy procedure are in the results section. ARTERIAL BLOOD GAS STAT 06/12/2019 9:00 Resul ts for this AM MECHANICAL ENGINEERING DIRECTOR procedure are i n the results section. ESTIMATED GFR Routine 06/12/2019 2:37 Results fo r this AM MECHANICAL ENGINEERING DIRECTOR procedure are i n the results section. PHOSPHORUS LEVEL Routine 06/12/2019 2:37 Results for this AM MECHANICAL ENGINEERING DIRECTOR procedure are i n the results section. MAGNESIUM LEVEL Routine 06/12/2019 2:37 Results for this AM MECHANICAL ENGINEERING DIRECTOR procedure are i n the results section. BASIC METABOLIC PANEL Routine 06/12/2019 2:37 Re sults for this AM MECHANICAL ENGINEERING DIRECTOR procedure are i n the results section. VANCOMYCIN LEVEL, Routine 06/12/2019 2:37 Result s for this TROUGH AM MECHANICAL ENGINEERING DIRECTOR procedure are i n the results section. MANUAL DIFFERENTIAL Routine 06/12/2019 2:00 Resu lts for this AM MECHANICAL ENGINEERING DIRECTOR procedure are i n the results section. PARTIAL THROMBOPLASTIN Routine 06/12/2019 2:00 R esults for this TIME (PTT) AM MECHANICAL ENGINEERING DIRECTOR procedure are i n the results section. CBC WITH PLATELET AND Routine 06/12/2019 2:00 Re sults for this DIFFERENTIAL AM MECHANICAL ENGINEERING DIRECTOR procedure are i n the results section. OCCULT BLOOD, STOOL Routine 06/11/2019 10:26 Resu lts for this PM MECHANICAL ENGINEERING DIRECTOR procedure are i n the results section. PARTIAL THROMBOPLASTIN Routine 06/11/2019 8:04 R esults for this TIME (PTT) PM MECHANICAL ENGINEERING DIRECTOR procedure are i n the results section. US DUPLEX VENOUS UPPER STAT 06/11/2019 8:49 R esults for this EXTREMITY BILATERAL AM MECHANICAL ENGINEERING DIRECTOR procedur e are in the results section. MANUAL DIFFERENTIAL Routine 06/11/2019 3:58 Resu lts for this AM MECHANICAL ENGINEERING DIRECTOR procedure are i n the results section. ESTIMATED GFR Routine 06/11/2019 3:58 Results fo r this AM MECHANICAL ENGINEERING DIRECTOR procedure are i n the results section. PHOSPHORUS LEVEL Routine 06/11/2019 3:58 Results for this AM MECHANICAL ENGINEERING DIRECTOR procedure are i n the results section. MAGNESIUM LEVEL Routine 06/11/2019 3:58 Results for this AM MECHANICAL ENGINEERING DIRECTOR procedure are i n the results section. COMPREHENSIVE Routine 06/11/2019 3:58 Results fo r this METABOLIC PANEL AM MECHANICAL ENGINEERING DIRECTOR procedure ar e in the results section. CBC WITH PLATELET AND Routine 06/11/2019 3:58 Re sults for this DIFFERENTIAL AM MECHANICAL ENGINEERING DIRECTOR procedure are i n the results section. ESTIMATED GFR Timed 06/10/2019 4:30 Results fo r this PM MECHANICAL ENGINEERING DIRECTOR procedure are i n the results section. PHOSPHORUS LEVEL Timed 06/10/2019 4:30 Results for this PM MECHANICAL ENGINEERING DIRECTOR procedure are i n the results section. MAGNESIUM LEVEL Timed 06/10/2019 4:30 Results for this PM MECHANICAL ENGINEERING DIRECTOR procedure are i n the results section. BASIC METABOLIC PANEL Timed 06/10/2019 4:30 Re sults for this PM MECHANICAL ENGINEERING DIRECTOR procedure are i n the results section. URINALYSIS SCREEN AND Routine 06/10/2019 10:00 Re sults for this MICROSCOPY, WITH AM MECHANICAL ENGINEERING DIRECTOR procedure a re in REFLEX TO CULTURE the result s section. URINE CULTURE Routine 06/10/2019 10:00 Results fo r this AM MECHANICAL ENGINEERING DIRECTOR procedure are i n the results section. ECG 12-LEAD Routine 06/10/2019 8:36 Results for this AM MECHANICAL ENGINEERING DIRECTOR procedure are i n the results section. PHOSPHORUS LEVEL STAT 06/10/2019 8:30 Results for this AM MECHANICAL ENGINEERING DIRECTOR procedure are i n the results section. THYROID STIMULATING STAT 06/10/2019 8:30 Resu lts for this HORMONE AM MECHANICAL ENGINEERING DIRECTOR procedure are i n the results section. HC COMPLETE BLD COUNT STAT 06/10/2019 8:30 Re sults for this W/AUTO DIFF AM MECHANICAL ENGINEERING DIRECTOR procedure are i n the results section. HEMOGLOBIN A1C STAT 06/10/2019 8:30 Results f or this AM MECHANICAL ENGINEERING DIRECTOR procedure are i n the results section. ESTIMATED GFR STAT 06/10/2019 8:30 Results fo r this AM MECHANICAL ENGINEERING DIRECTOR procedure are i n the results section. B NATRIURETIC PEPTIDE STAT 06/10/2019 8:30 Re sults for this AM MECHANICAL ENGINEERING DIRECTOR procedure are i n the results section. TROPONIN STAT 06/10/2019 8:30 Results for this AM MECHANICAL ENGINEERING DIRECTOR procedure are i n the results section. PROTHROMBIN TIME WITH STAT 06/10/2019 8:30 Re sults for this INR AM MECHANICAL ENGINEERING DIRECTOR procedure are i n the results section. PARTIAL THROMBOPLASTIN STAT 06/10/2019 8:30 R esults for this TIME (PTT) AM MECHANICAL ENGINEERING DIRECTOR procedure are i n the results section. MAGNESIUM LEVEL STAT 06/10/2019 8:30 Results for this AM MECHANICAL ENGINEERING DIRECTOR procedure are i n the results section. LIPID PANEL STAT 06/10/2019 8:30 Results for this AM MECHANICAL ENGINEERING DIRECTOR procedure are i n the results section. LACTIC ACID LEVEL STAT 06/10/2019 8:30 Result s for this AM MECHANICAL ENGINEERING DIRECTOR procedure are i n the results section. COMPREHENSIVE STAT 06/10/2019 8:30 Results fo r this METABOLIC PANEL AM MECHANICAL ENGINEERING DIRECTOR procedure ar e in the results section. XR CHEST 1 VW PORTABLE Routine 06/10/2019 5:57 R esults for this AM MECHANICAL ENGINEERING DIRECTOR procedure are i n the results section. BLOOD CULTURE, AEROBIC Routine 06/10/2019 4:50 R esults for this & ANAEROBIC AM MECHANICAL ENGINEERING DIRECTOR procedure are i n the results section. BLOOD CULTURE, AEROBIC Routine 06/10/2019 4:40 R esults for this & ANAEROBIC AM MECHANICAL ENGINEERING DIRECTOR procedure are i n the results section. MRSA SCREEN CULTURE Routine 06/10/2019 3:25 Resu lts for this AM MECHANICAL ENGINEERING DIRECTOR procedure are i n the results section. CT CHEST EXTERNAL Routine 06/09/2019 5:56 Result s for this STUDY PM MECHANICAL ENGINEERING DIRECTOR procedure are i n the results section. XR CHEST EXTERNAL Routine 06/09/2019 4:36 Result s for this STUDY PM MECHANICAL ENGINEERING DIRECTOR procedure are i n the results section. US VASCULAR EXTERNAL Routine 06/09/2019 3:41 Res ults for this STUDY PM MECHANICAL ENGINEERING DIRECTOR procedure are i n the results section. ECG 12-LEAD Routine 06/01/2019 10:14 Results for this AM MECHANICAL ENGINEERING DIRECTOR procedure are i n the results section. ESTIMATED GFR Routine 06/01/2019 6:08 Results fo r this AM MECHANICAL ENGINEERING DIRECTOR procedure are i n the results section. TROPONIN Routine 06/01/2019 6:08 Results for this AM MECHANICAL ENGINEERING DIRECTOR procedure are i n the results section. B NATRIURETIC PEPTIDE Routine 06/01/2019 6:08 Re sults for this AM MECHANICAL ENGINEERING DIRECTOR procedure are i n the results section. HC COMPLETE BLD COUNT Routine 06/01/2019 6:08 Re sults for this W/AUTO DIFF AM MECHANICAL ENGINEERING DIRECTOR procedure are i n the results section. BASIC METABOLIC PANEL Routine 06/01/2019 6:08 Re sults for this AM MECHANICAL ENGINEERING DIRECTOR procedure are i n the results section. ECG 12-LEAD Routine 06/01/2019 5:45 Results for this AM MECHANICAL ENGINEERING DIRECTOR procedure are i n the results section. ESTIMATED GFR Routine 05/31/2019 2:58 Results fo r this PM MECHANICAL ENGINEERING DIRECTOR procedure are i n the results section. TROPONIN Routine 05/31/2019 2:58 Results for this PM MECHANICAL ENGINEERING DIRECTOR procedure are i n the results section. B NATRIURETIC PEPTIDE Routine 05/31/2019 2:58 Re sults for this PM MECHANICAL ENGINEERING DIRECTOR procedure are i n the results section. HC COMPLETE BLD COUNT Routine 05/31/2019 2:58 Re sults for this W/AUTO DIFF PM MECHANICAL ENGINEERING DIRECTOR procedure are i n the results section. BASIC METABOLIC PANEL Routine 05/31/2019 2:58 Re sults for this PM MECHANICAL ENGINEERING DIRECTOR procedure are i n the results section. HC ECHO 2-D F/UP Routine 05/30/2019 10:50 Results for this LIMITED AM MECHANICAL ENGINEERING DIRECTOR procedure are i n the results section. ECG PRE/POST OP Routine 05/30/2019 4:03 Results for this AM MECHANICAL ENGINEERING DIRECTOR procedure are i n the results section. ESTIMATED GFR Routine 05/30/2019 4:00 Results fo r this AM MECHANICAL ENGINEERING DIRECTOR procedure are i n the results section. HC COMPLETE BLD COUNT Routine 05/30/2019 4:00 Re sults for this W/AUTO DIFF AM MECHANICAL ENGINEERING DIRECTOR procedure are i n the results section. MAGNESIUM LEVEL Routine 05/30/2019 4:00 Results for this AM MECHANICAL ENGINEERING DIRECTOR procedure are i n the results section. BASIC METABOLIC PANEL Routine 05/30/2019 4:00 Re sults for this AM MECHANICAL ENGINEERING DIRECTOR procedure are i n the results section. XR CHEST 1 VW PORTABLE Routine 05/29/2019 6:15 R esults for this PM MECHANICAL ENGINEERING DIRECTOR procedure are i n the results section. EP PACEMAKER INSERTION Routine 05/29/2019 5:34 R esults for this NEW OR REPLACEMENT PM MECHANICAL ENGINEERING DIRECTOR procedure are in the results section. TTE COMPLETE, WO STAT 05/29/2019 11:58 Results for this CONTRAST, W DOPPLER AM MECHANICAL ENGINEERING DIRECTOR procedur e are in ([id number]) the results section. B NATRIURETIC PEPTIDE Routine 05/29/2019 10:24 Re sults for this AM MECHANICAL ENGINEERING DIRECTOR procedure are i n the results section. ECG 12-LEAD Routine 05/29/2019 9:23 Results for this AM MECHANICAL ENGINEERING DIRECTOR procedure are i n the results section. PARTIAL THROMBOPLASTIN Routine 05/28/2019 5:00 R esults for this TIME (PTT) PM MECHANICAL ENGINEERING DIRECTOR procedure are i n the results section. PROTHROMBIN TIME WITH Routine 05/28/2019 5:00 Re sults for this INR PM MECHANICAL ENGINEERING DIRECTOR procedure are i n the results section. HC COMPLETE BLD COUNT Routine 05/28/2019 5:00 Re sults for this W/AUTO DIFF PM MECHANICAL ENGINEERING DIRECTOR procedure are i n the results section. ESTIMATED GFR Routine 05/28/2019 4:14 Results fo r this PM MECHANICAL ENGINEERING DIRECTOR procedure are i n the results section. MAGNESIUM LEVEL Routine 05/28/2019 4:14 Results for this PM MECHANICAL ENGINEERING DIRECTOR procedure are i n the results section. PHOSPHORUS LEVEL Routine 05/28/2019 4:14 Results for this PM MECHANICAL ENGINEERING DIRECTOR procedure are i n the results section. THYROID STIMULATING Routine 05/28/2019 4:14 Resu lts for this HORMONE PM MECHANICAL ENGINEERING DIRECTOR procedure are i n the results section. COMPREHENSIVE Routine 05/28/2019 4:14 Results fo r this METABOLIC PANEL PM MECHANICAL ENGINEERING DIRECTOR procedure ar e in the results section. EMG Routine 02/24/2019 12:28 Lumbar radiculopathy Res ults for this PM MECHANICAL ENGINEERING DIRECTOR procedure are i n the results section. MRI LUMBAR SPINE WO Routine 02/24/2019 9:52 Lumbar radiculopa thy Results for this CONTRAST AM MECHANICAL ENGINEERING DIRECTOR procedure are i n the results section. after 12/01/2018 Results EMG general request (11/24/2019 1:31 PM CDT) Impressions Performed At Patient woke up with acute pain allodyn ia in the left arm with predominate hand weakness. Clinical suspicion of bra chial plexitis with negative imaging of her cervical spine showing postop changes from prior fusion. She comes in for an EMG NCV st udy to further assess. 1) Motor conductions reveal absent left ulnar response mild slowing of the left ulnar nerve. Absent left axillary nerve conduct ion. Radial nerve is mildly slow. Median nerve on the left mild to modera te slowing. Right median and ulnar nerves show mild slowing but normal l atencies. Normal musculocutaneous and axillary conduction s on the right. The left musculocutaneous response has a slight delay distal la tency and decreased amplitude 2) F Wave responses absent for left ulna r response 3) Sensory responses show absent left ulnar conduction . Severe delay of the left median palmar latency. Severe delay of the right median palmar latency with decreased sensory nerve act ion potential. 4) Intramuscular recordings of the left upper extremity are as noted above. Mild denervation deltoid triceps no motor uni ts seen in first DI with active denervation The study suggests: Probable patchy brachial plexitis predominately affect ing the medial cord. Evidence of a mild axonal polyneuropathy . Mild median mononeuropathies at the wris ts may be superimposed/CTS Bettie Vega M.D. [facility] Department of Neurology [facility] [address] [place] [id number] Office: [phone] Narrative Performed At This result has an attachment that is no t available. NERVE CONDUCTION AND ELECTROMYOGRAPHY REPORT [facility] Medicine [facility]-[address] [facility]; [place], [place] [address]; Teleph one [phone] Name: Carl Perez Date of Procedure: 11/24/19 Sex: female Date of : 1955 Referring Physician: John Vega MD Ht: 5 foot wt: 206 temp: 34.4/34.2 Nerve Conduction (Latencies in msec, Amplitudes uV, Distance cm, Velocity M/Sec) Right Motor Nerves Dist. Lat. Prox lat. D. amp. P. Amp . Dist. Velocity Right Median 4.4 9.4 8 5.5 22 44 Right Ulnar (below elb) 3.1 6.4 6.2 5.2 15 45 Right Ulnar (across elb) Right Radial 3.1 6.8 5.5 4.3 19 51 Right axillary 4.2 5.5 Musculocutaneous 3.6 4.3 Right Median F Wave 30.6 Right Ulnar F Wave 31 Right Sensory Nerves Dist. Lat. Prox lat. Dist. amp. Prox Amp. Distance Velocity Right Median Palmar 2.6 29 8.0 Right Median Digital 3.9 8 13.0 Right Ulnar 3.1 7 11.0 Right Super. Radial 2.0 29 10.0 Medial antebrachial 2.9 12.8 Lateral antebrachial 1.7 18 Left Motor Nerves Dist. Lat. Prox lat. D. amp. P. Amp. Dist. Velocity Left Median 4.5 9.2 7.3 5.3 19.1 41 Left Ulnar (below elb) absent Left Ulnar (across elb) Left Radial 3.3 7.7 4.0 3.6 20 45 Left axillary absent Musculocutaneous 4.3 2.8 Left Median F Wave 31 Left Ulnar F Wave absent Left Sensory Nerves Dist. Lat. Prox lat. Dist. a mp. Prox Amp. Distance Velocity Left Median Palmar 2.9 22 8.0 Left Median Digital 3.8 9 13.0 Left Ulnar absent 11.0 Left Super. Radial 2.4 21 10.0 Medial antebrachial 2.9 13.6 Lateral antebrachial 1.8 19 Electromyography (Motor Unit in mV; H=High; L=Low; P=P olyphasic; NS=Non-specific) Left Arm Fibs. Pos. Waves Fasc. Polyphasia M otor Units Recruitment Deltoid wnl wnl wnl wnl 3-6 -1 Biceps wnl wnl wnl wnl wnl wnl Triceps wnl wnl wnl wnl 3-4 mns Brachioradialis wnl wnl wnl wnl wnl wnl lst D. Interosseous wnl 3+ no motor units Extensor carpi uln. wnl wnl wnl wnl wnl wnl MRI Cervical Spine Wo Contrast (11/07/2019 9:51 AM CDT) Specimen Narrative Performed At This result has an attachment that is no t available. EXAMINATION: MRI CERVICAL SPINE WO CONTRAST [facility] CLINICAL HISTORY: M54.12 Radiculopathy cervical nat on, left [id number] COMPARISON: None TECHNIQUE: Multiplanar multisequence non contrast enhanced examination was performed of the cervical spine. FINDINGS: Fusion of the C2 and C3 vertebral bodies . Status post ACDF C4-C7 with solid osseous fusion of C2-C7. There is evidence of fusion of the left facet joints of C4-C6 and right C5-C7, and possibly right C3-C4. No fracture. 1-2 mm retrolisthesis C3 on C4, degenerative. No suspicious osseous lesion. The cervicomedullary junction is normal in appearance. No spinal cord signal abnormality. No prevertebral edema or neck mass identified. Axial images through the disc spaces demonstrate the f ollowing: C1-C2: Degenerative changes atlantodenta l articulation without significant spinal canal stenosis. C2-C3: Fusion of the vertebral bodies an d facet joints. There is evidence of mild congenital neural foraminal stenosis at this level without significant spinal canal stenosis. C3-C4: Uncovertebral and facet osteophyt es contributes to severe bilateral neural foraminal stenosis as well as mild to moderate spinal canal, moderate left, mild right subarticular zone stenosis, contacting the spinal cord without edema. C4-C5: Status post ACDF. There is eviden ce of severe left neural foraminal stenosis secondary to uncovertebral and facet arthropathy as well as mild spinal canal and mild left subarticular zone stenosis, without significant right neural foraminal or subarticular zone stenosis. C5-C6: Status post ACDF. Possible mild l eft neural foraminal stenosis secondary to uncovertebral and facet osteophytes, with no evidence of significant spinal canal or right neural foraminal stenosis. C6-C7: Status post ACDF. Possible mild b ilateral neural foraminal stenosis secondary to uncovertebral and facet osteophytes without evidence of significant spinal canal or subarticular zone stenosis. C7-T1: No significant posterior disc dis ease, spinal canal, subarticular zone, or neural foraminal stenosis. IMPRESSION: 1. 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 Status post ACDF C4-C7. 2. Multilevel degenerative changes of th e cervical spine, most notably at C3-4 and C4-5 as detailed above. [id number] Procedure Note Hm Interface, Radiology Results 11/07/2019 10:04 AM CDT EXAMINATION: MRI CERVICAL SPINE WO CONTRAST CLINICAL HISTORY: M54.12 Radiculopathy cervical region, left c78 COMPARISON: None TECHNIQUE: Multiplanar multisequence non contrast enhanced examination was performed of the cervical spine. FINDINGS: Fusion of the C2 and C3 vertebral bodies . Status post ACDF C4-C7 with solid osseous fusion of C2-C7. There is evidence of fusion of the left facet joints of C4-C6 and right C5-C7, and possibly right C3-C4. No fracture. 1-2 mm retrolisthesis C3 on C4, degenerative. No suspicious osseous lesion. The cervicomedullary junction is normal in appearance. No spinal cord signal abnormality. No prevertebral edema or neck mass ident ified. Axial images through the disc spaces dem onstrate the following: C1-C2: Degenerative changes atlantodenta l articulation without significant spinal canal stenosis. C2-C3: Fusion of the vertebral bodies an d facet joints. There is evidence of mild congenital neural foraminal stenosis at this level without significant spinal canal stenosis. C3-C4: Uncovertebral and facet osteophyt es contributes to severe bilateral neural foraminal stenosis as well as mild to moderate spinal canal, moderate left, mild right subarticular zone stenosis, contacting the spinal cord without edema. C4-C5: Status post ACDF. There is eviden ce of severe left neural foraminal stenosis secondary to uncovertebral and facet arthropathy as well as mild spinal canal and mild left subarticular zone stenosis, without significant right neural foraminal or subarticular zone stenosis. C5-C6: Status post ACDF. Possible mild l eft neural foraminal stenosis secondary to uncovertebral and facet osteophytes, with no evidence of significant spinal canal or right neural foraminal stenosis. C6-C7: Status post ACDF. Possible mild b ilateral neural foraminal stenosis secondary to uncovertebral and facet osteophytes without evidence of significant spinal canal or subarticular zone stenosis. C7-T1: No significant posterior disc dis ease, spinal canal, subarticular zone, or neural foraminal stenosis. IMPRESSION: 1. Congenital fusion of the C2 and C3 ve rtebral bodies. Status post ACDF C4-C7. 2. Multilevel degenerative changes of th e cervical spine, most notably at C3-4 and C4-5 as detailed above. [id number] Performing Organization Address City/State/Zipcode Phone Number [facility] [address] [place] [address] XR Rays No Charge MRI (11/07/2019 8:08 AM CDT)Only the most recent of2 results within the time period is included. Specimen Narrative Performed At EXAMINATION: X RAYS NO CHARGE MRI, X RAY S NO CHARGE MRI [facility] HISTORY: 64 years old Female. M54.12 Radiculopathy c ervical region, left c78. COMPARISON: Lumbar spine MRI 02/24/2019 FINDINGS: CHEST: 2 views are performed. Left subclavian dual-adri d pacemaker with intact leads. Mild linear atelectasis left lower lung. No consolidation, pleural effusion or pneumothorax. Cardiac mediastinal silhouette is normal. Cervical spine internal fixation instrumentation. ABDOMEN: AP view is performed over 4 exposures. Lumbos acral spine internal fixation instrumentation. Retained intratheca l medication pump catheter tubing. No pump is visualized. Inferior vena cava filter overlying the right lumbosacral junction . Moderate volume of stool in the colon without bowel obstructio n. 6 mm calcification in the right hemiabdomen to the right of the L4 vertebral body, possibly bowel contents. IMPRESSION: 1. Left subclavian dual-lead pacemaker w ith intact leads. 2. Retained intrathecal medication pump catheter tubin g with absent pump. 3. Inferior vena cava filter. 4. Lumbosacral spine internal fixation i nstrumentation. [facility]-[id number] Procedure Note Interface, Radiology Results Incoming - 11/07/2019 8:37 AM CDT EXAMINATION: X RAYS NO CHARGE MRI, X RAYS NO CHARGE MRI HISTORY: 64 years old Female. M54.12 Rad iculopathy cervical region, left c78. COMPARISON: Lumbar spine MRI 02/24/2019 FINDINGS: CHEST: 2 views are performed. Left subcl thomas dual-lead pacemaker with intact leads. Mild linear atelectasis left lower lung. No consolidation, pleural effusion or pneumothorax. Cardiac mediastinal silhouette is normal. Cervical spine internal fixation instrumentation. ABDOMEN: AP view is performed over 4 exp osures. Lumbosacral spine internal fixation instrumentation. Retained intrathecal medication pump catheter tubing. No pump is visualized. Inferior vena cava filter overlying the right lumbosacral junction. Moderate volume of stool in the colon without shantell wel obstruction. 6 mm calcification in the right hemiabdomen to the right of the L4 vertebral body, possibly bowel contents. IMPRESSION: 1. Left subclavian dual-lead pacemaker w ith intact leads. 2. Retained intrathecal medication pump catheter tubing with absent pump. 3. Inferior vena cava filter. 4. Lumbosacral spine internal fixation i nstrumentation. [facility]-[id number] Performing Organization Address City/State/Zipcode Phone Number [facility] [address] [place] [address] Arterial blood gas (06/12/2019 9:00 AM MECHANICAL ENGINEERING DIRECTOR) [facility] Sig nature pH, arterial 7.40 7.35 - 7.45 [facility] pCO2, arterial 39 35 - 45 mmHg [facility] pO2, arterial 74 (L) 80 - 90 mmHg [facility] Bicarbonate, 24.1 21.0 - 28.0 [facility] arterial mmol/L HOSPITAL Base excess, 0 -2 - 2 mEq/L [facility] O2 saturation, 95 95 - 100 % [facility] arterial [facility] Specimen Blood Performing Organization Address [facility] Phone Number [facility] DEPARTMENT OF PATHOLOGY AND [address] [place] [address] [phone] [address] Estimated GFR (06/12/2019 2:37 AM MECHANICAL ENGINEERING DIRECTOR)Only the most recent of8 resultswithin the time period is included. Estimated GFR 34 (A) mL/min/1.73 [facility] Comment: m2 HOSPITAL Catergory Units Interpretation [...] 2014. Specimen Plasma specimen Performing Organization Address [facility] Phone Number [facility] DEPARTMENT OF PATHOLOGY AND [address] [place] [address] [phone] [address] Phosphorus level (06/12/2019 2:37 AM MECHANICAL ENGINEERING DIRECTOR)Only the most recent of5 resultswithin the time period is included. Pathologist Sig nature Phosphorus 3.2 2.4 - 4.5 mg/dL [facility] L Specimen Plasma specimen Performing Organization Address [facility] Phone Number [facility] DEPARTMENT OF PATHOLOGY AND [address] [place] [address] [phone] [address] Magnesium level (06/12/2019 2:37 AM MECHANICAL ENGINEERING DIRECTOR)Only the most recent of6 resultswithin the time period is included. Pathologist Sig nature Magnesium 2.0 1.6 - 2.4 mg/dL [facility] Specimen Plasma specimen Performing Organization Address [facility] Phone Number [facility] DEPARTMENT OF PATHOLOGY AND [address] [place] [address] [phone] [address] Vancomycin level, trough (06/12/2019 2:37 AM MECHANICAL ENGINEERING DIRECTOR) Vancomycin, 24.2 (HH) 10.0 - 20.0 [facility] trough Comment: ug/mL HOSPITAL Therapeutic Ranges: Peak 30.0 - 40.0 ug/mL Trough 10.0 - 20.0 ug/mL Specimen Serum Performing Organization Address City/[facility] Phone Number [facility] DEPARTMENT OF PATHOLOGY AND [address] [place] [address] [address] Basic metabolic panel (06/12/2019 2:37 AM MECHANICAL ENGINEERING DIRECTOR)Only the most recent of5 results within the time period is included. [facility] Sodium 144 135 - 148 mEq/L [facility] Potassium 4.9 3.5 - 5.0 mEq/L [facility] Chloride 106 98 - 112 mEq/L [facility] CO2 24 24 - 31 mEq/L [facility] Anion gap 14@ANIO 7 - 15 mEq/L [facility] BUN 30 (H) 8 - 23 mg/dL [facility] Creatinine 1.77 (H) 0.50 - 0.90 mg/dL [facility] Glucose 163 (H) 65 - 99 mg/dL [facility] Calcium 8.1 (L) 8.8 - 10.2 mg/dL [facility] Specimen Plasma specimen Performing Organization Address [facility] Phone Number [facility] DEPARTMENT OF PATHOLOGY AND [address] [place] [address] [phone] [address] Manual differential (06/12/2019 2:00 AM MECHANICAL ENGINEERING DIRECTOR)Only the most recent of2 results within the time period is included. [facility] Manual differential PERFORMED [facility] Neutrophils 56.0 39.0 - 69.0 % [facility] Lymphocytes 34.0 25.0 - 45.0 % [facility] Monocytes 6.0 0.0 - 10.0 % [facility] Eosinophils 4.0 0.0 - 5.0 % [facility] Basophils 0.0 0.0 - 1.0 % [facility] Metamyelocytes 0 % [facility] Promyelocytes 0 % [facility] Platelet slide review Dede slt incr [facility] Anisocytosis Moderate [facility] Polychromasia Moderate [facility] Specimen Performing Organization Address City/State/Zipcode Phone Number [facility] DEPARTMENT OF PATHOLOGY AND [address] [place] [address] [phone] [address] Partial thromboplastin time, activated (06/12/2019 2:00 AM MECHANICAL ENGINEERING DIRECTOR)Only the most recent of4 resultswithin the time period is included. [facility] Signature PTT 103.7 (HH) 23.0 - 36.0 [facility] Comment: [facility] PTT therapeutic range for unfractionated heparin is 61.0-112.0 seconds which corresponds to Anti-Xa 0.3-0.7 U/ml. PTT results called to and read back by Richard LOPEZ/JEN at 06/12/2019 02:56 by KCScott. Specimen Blood Performing Organization Address City/[facility]/Zipcode Phone Number [facility] DEPARTMENT OF PATHOLOGY AND [address] [place], [place] [address] [address] [address] CBC with platelet and differential (06/12/2019 2:00 AM MECHANICAL ENGINEERING DIRECTOR)Only the most recent of7 resultswithin the time period is included. Pathologist Sig nature WBC 13.61 (H) 4.50 - 11.00 k/uL [facility] RBC 3.03 (L) 4.20 - 5.50 m/uL [facility] HGB 8.6 (L) 12.0 - 16.0 g/dL [facility] HCT 28.1 (L) 37.0 - 47.0 % [facility] MCV 92.7 82.0 - 100.0 fL [facility] MCH 28.4 27.0 - 34.0 pg [facility] MCHC 30.6 (L) 31.0 - 37.0 g/dL [facility] RDW - SD 55.9 (H) 37.0 - 55.0 fL [facility] MPV 10.9 8.8 - 13.2 fL [facility] Platelet count 415 (H) 150 - 400 k/uL [facility] Nucleated RBC 0.00 /100 WBC [facility] Neutrophils 56.0 39.0 - 69.0 % [facility] Lymphocytes 34.0 25.0 - 45.0 % [facility] Monocytes 6.0 0.0 - 10.0 % [facility] Eosinophils 4.0 0.0 - 5.0 % [facility] Basophils 0.0 0.0 - 1.0 % [facility] Specimen Blood Performing Organization Address City/[facility] Phone Number [facility] DEPARTMENT OF PATHOLOGY AND [address] [place] [address] Occult blood, stool (06/11/2019 10:26 PM MECHANICAL ENGINEERING DIRECTOR) Occult blood, Negative for occult blood. [facility] stool Comment: HOSPITAL Specimen Information Specimen Source: Stool Specimen Site: Nonpreserved Specimen Stool - Nonpreserved Performing Organization Address City/[facility] Phone Number [facility] DEPARTMENT OF PATHOLOGY AND [address] [place] [address] duplex venous upper extremity (06/11/2019 8:49 AM MECHANICAL ENGINEERING DIRECTOR) Specimen Narrative Performed At [facility] l[facility] Upper Extr emity Venous Report [address] [place] [address] Pat.Name: CRAL PEREZ Pat.ID: [id number] .Date: 06/11/2019 Refer.MD: KRISTAL GUTHRIE MD Exam Time: 7:58:00 AM Study Type:U E Venous Height: 62in A ge: 1955,63Y Sex: FEMALE Sonogrp hr: Braeden Kim RN, RVT Pat. Stat.:Inpatient Room: [facility] Tape Vol: DP, CPT - 4: 59930 Echo Event ID:[id number] Order ID: [id number] Reason for Study:Left arm pain and edema [...] 06/11/2019 10:05 AM Nicolás Fuentes MD, RPVI Procedure Note Interface, Radiology Results In - 2019 10:05 AM [facility] Vascular Ultrasound Laboratory Upper Extremity Veno us Report [address] [place] [address] Pat.Name: CARL PEREZ Pat.I D: [id number] St.Date: 06/11/2019 Refer .MD: KRISTAL GUTHRIE MD Exam Time: 7:58:00 AM Study Type:UE Venous Height: 62in Age: 6 1955,63Y Sex: FEMALE Sonog rphr: Braeden Kim, RN, RVT Pat. Stat.:Inpatient Room: [id number] Tape Vol: DP, CPT - 4: 05861 Echo Event ID:[id number] Order ID: [id number] Reason for Study:Left arm pain and edema [...] Nicolás Fuentes MD, RPVI Performing Organization Address City/State/Zipcode Phone Number [facility] [address] [place] [address] Comprehensive metabolic panel (06/11/2019 3:58 AM MECHANICAL ENGINEERING DIRECTOR)Only the most recent of3 resultswithin the time period is included. Sodium 142 135 - 148 [facility] mEq/L [facility] Potassium 5.0 3.5 - 5.0 [facility] mEq/L [facility] Chloride 103 98 - 112 mEq/L [facility] CO2 26 24 - 31 mEq/L [facility] Anion gap 13@ANIO 7 - 15 mEq/L [facility] BUN 29 (H) 8 - 23 mg/dL [facility] Creatinine 1.92 (H) 0.50 - 0.90 [facility] mg/dL [facility] Glucose 126 (H) 65 - 99 mg/dL [facility] Calcium 8.3 (L) 8.8 - 10.2 [facility] mg/dL [facility] Protein 7.2 6.3 - 8.3 g/dL [facility] Comment: HOSPITAL Aivsuxe4614.6-7.0 g/dL 1 chsl4365.4-7.6 g/dL 7 months-0sisk787.1-7.3 g/dL 1-2 rdexr765.6-7.5 g/dL >3 bngfa507.0-8.0 g/dL 18-2723978.3-8.3 g/dL Albumin 2.7 (L) 3.5 - 5.0 g/dL [facility] A/G ratio 0.6 (L) 0.7 - 3.8 [facility] Alkaline phosphatase 160 (H) 35 - 104 U/L [facility] AST 30 10 - 35 U/L [facility] ALT 16 5 - 50 U/L [facility] Total bilirubin <0.2 0.0 - 1.2 [facility] mg/dL [facility] Specimen Plasma specimen Performing Organization Address City/State/Zipcode Phone Number [facility] DEPARTMENT OF PATHOLOGY AND [address] [place], [place] [address] GENOMIC MEDICINE [facility] [address] [place] [address] Urinalysis screen and microscopy, with reflex to culture (06/10/2019 10:00 AM MECHANICAL ENGINEERING DIRECTOR) Specimen site Clean catch [facility] Color, UA Straw [facility] Appearance, UA Clear [facility] Specific gravity, UA 1.013 1.001 - 1.035 [facility] pH, UA 5.0 5.0 - 8.5 [facility] Protein, UA Negative Negative [facility] Glucose, UA Negative Negative [facility] Ketones, UA Negative Negative [facility] Bilirubin, UA Negative Negative [facility] Blood, UA Negative Negative [facility] Nitrite, UA Negative Negative [facility] Urobilinogen, UA <2.0 <2.0 [facility] Leukocyte esterase, Negative Negative [facility] Epithelial cells, UA 2 /HPF [facility] WBC, UA None seen 0 - 4 /HPF [facility] RBC, UA <1 0 - 5 /HPF [facility] Bacteria, UA None seen None seen [facility] Yeast, UA None seen [facility] Yeast with None seen [facility] pseudohyphae, [facility] Hyaline casts, UA 1 /LPF [facility] Specimen Urine Performing Organization Address City/[facility]/Zipcode Phone Number [facility] DEPARTMENT OF PATHOLOGY AND [address] [place], [place] [address] [facility] [address] [place] [address] Urine culture (06/10/2019 10:00 AM MECHANICAL ENGINEERING DIRECTOR) Pathologist Sig [facility] Urine culture SEE COMMENTComment: [facility] Bacteriuria screen HOSPITAL negative. Specimen Performing Organization Address [facility] Cent[facility]ode Phone Number [facility] DEPARTMENT OF PATHOLOGY AND [address] [place], [place] [address] [facility] [address] [place] [address] ECG 12 lead (06/10/2019 8:36 AM MECHANICAL ENGINEERING DIRECTOR)Only the most recent of4 resultswithin the time [...] normal variant ( R in aVL , Bowers product )-Nonspecific T wave abnormality- Abnormal ECG-In automated comparison with ECG of -MAY-2019 10 [facility] MUSE :14,-Sinus rhythm has replaced Electronic atrial pacemaker- Specimen Narrative Performed At This result has an attachment that is no t available. Performing Organization Address [facility] Centercode Phone Number [facility] MUSE [address] [place] [address] Troponin (06/10/2019 8:30 AM MECHANICAL ENGINEERING DIRECTOR)Only the most recent of3 resultswithin the time period is included. Troponin 0.035 0.000 - 0.040 [facility] Comment: ng/mL HOSPITAL In patients suspected [...] ng/mL Specimen Plasma specimen Performing Organization Address [facility] Phone Number [facility] DEPARTMENT OF PATHOLOGY AND [address] [place] [address] [address] Prothrombin time with INR (06/10/2019 8:30 AM MECHANICAL ENGINEERING DIRECTOR)Only the most recent of2 resultswithin the time period is included. Prothrombin time 14.9 (H) 11.5 - 14.5 [facility] INR 1.2 [facility] Comment: [facility] The International Normalized Ratio (INR) is a therapeu [facility] HOSPITAL monitoring tool for patients who are stable on oral anticoagulant therapy. An INR of 2.0-3.0 is suggested for deep vein thrombosis/pulmonary embolism. Specimen Blood Performing Organization Address [facility] Phone Number [facility] DEPARTMENT OF PATHOLOGY AND [address] [place] [address] [phone] [address] Thyroid stimulating hormone (06/10/2019 8:30 AM MECHANICAL ENGINEERING DIRECTOR)Only the most recent of2 resultswithin the time period is included. Pathologist Sig nature TSH 1.46 0.27 - 4.20 uIU/mL [facility] Specimen Plasma specimen Performing Organization Address City/[facility] Centercode Phone Number [facility] DEPARTMENT OF PATHOLOGY AND [address] [place] [phone] [place] [phone] B natriuretic peptide (06/10/2019 8:30 AM MECHANICAL ENGINEERING DIRECTOR)Only the most recent of4 results within the time period is included. Pathologist Sig nature BNP 229 (H) 0 - 100 pg/mL [facility] Specimen Blood Performing Organization Address City/[facility] Centercode Phone Number [facility] DEPARTMENT OF PATHOLOGY AND [address] [place] [address] [place] [address] Lactic acid level (06/10/2019 8:30 AM MECHANICAL ENGINEERING DIRECTOR) Pathologist Sig nature Lactic acid 1.6 0.5 - 2.2 mmol/L [facility] Specimen Plasma specimen Performing Organization Address [facility] Phone Number [facility] DEPARTMENT OF PATHOLOGY AND [address] [place] [phone] [place] [address] Hemoglobin A1c (06/10/2019 8:30 AM MECHANICAL ENGINEERING DIRECTOR) Hemoglobin A1C 7.7 (H) 4.0 - 5.6 % [facility] Comment: HOSPITAL HbA1c cutoffs for diagnosing [...] type 1 diabetes. Specimen Performing Organization Address [facility] Centercode Phone Number [facility] DEPARTMENT OF PATHOLOGY AND [address] [place] [phone] [place] [phone] Lipid panel (06/10/2019 8:30 AM MECHANICAL ENGINEERING DIRECTOR) Cholesterol 151 <200 mg/dL [facility] Triglycerides 155 (H) <150 mg/dL [facility] HDL cholesterol 25 (L) >40 mg/dL [facility] LDL cholesterol 90Comment: Result <100 mg/dL [facility] obtained by direct [facility] LDL measurement [facility] Comment: [facility] Total Cholesterol (mg/dL) HOSPIT AL <200 Desirable [...] mg/dL) Specimen Plasma specimen Performing Organization Address City/State/Zipcode Phone Number [facility] DEPARTMENT OF PATHOLOGY AND [address] [place] [phone] GENOMIC MEDICINE [address] [address] XR Chest 1 Vw Portable (06/10/2019 5:57 AM MECHANICAL ENGINEERING DIRECTOR)Only the most recent of2 results within the time period is included. Specimen Narrative Performed At EXAMINATION: XR CHEST 1 VW PORTABLE [facility] CLINICAL HISTORY: 63 years Female Pulmon [place] edema [facility] COMPARISON: Most recent prior at [facility] IMPRESSION: 1.Left chest wall cardiac device is similar to prior. Cardiomediastinal silhouette is stable. Central vasculature is at the up per limits of normal. Previous groundglass opacities have improved, probably was edema. 2.The lungs are hypoinflated with bibasilar atelectasi s. There is no new consolidation, effusion or pneumothorax. [facility]-[id number] Procedure Note Interface, Radiology Results Incoming - 06/10/2019 6:56 AM MECHANICAL ENGINEERING DIRECTOR EXAMINATION: XR CHEST 1 VW PORTABLE CLINICAL HISTORY: 63 years Female Pulmon cuba edema [facility] COMPARISON: Most recent prior at [facility] IMPRESSION: 1.Left chest wall cardiac device is marisabel lar to prior. Cardiomediastinal silhouette is stable. Central vasculature is at the upper limits of normal. Previous groundglass opacities have improved, probably was edema. 2.The lungs are hypoinflated with bibasi lar atelectasis. There is no new consolidation, effusion or pneumothorax. [facility]-[id number] Performing Organization Address City/[facility]/Zipcode Phone Number [facility] [address] [place] [address] Blood culture, aerobic & anaerobic (06/10/2019 4:50 AM MECHANICAL ENGINEERING DIRECTOR)Only the most recent of2 resultswithin the time period is included. Blood culture No growth after 5 days of incubation. [facility] isolate Comment: HOSPITAL Specimen Information Specimen Source: Blood Specimen Site: Peripheral Forearm Right Specimen Blood Performing Organization Address City/State/Zipcode Phone Number [facility] DEPARTMENT OF PATHOLOGY AND [address] [place] [address] [phone] [address] MRSA screen culture (06/10/2019 3:25 AM MECHANICAL ENGINEERING DIRECTOR) MRSA screen No Methicillin Resistant Staphylococcus aureus i solated. [facility] culture isolate Comment: HOSPITAL Specimen Information Specimen Source: Nares Specimen Site: Not specified Specimen Nares - Not specified Performing Organization Address [facility]/Zipcode Phone Number [facility] DEPARTMENT OF PATHOLOGY AND [address] [place] [address] [phone] [address] [address] Chest External Study (06/09/2019 5:56 PM MECHANICAL ENGINEERING DIRECTOR) Specimen Narrative Performed At This exam was not acquired at a [facility] facility and has not been [facility] interpreted by a Roman [employer] Provider. T he exam was imported into our imaging system. Performing Organization Address City/State/Zipcode Phone Number [facility] [address] [place] [address] XR Chest External Study (06/09/2019 4:36 PM MECHANICAL ENGINEERING DIRECTOR) Specimen Narrative Performed At This exam was not acquired at a [facility] facility and has not been [facility] interpreted by a Roman Catholic Provider. T he exam was imported into our imaging system. Performing Organization Address City/[facility]/Zipcode Phone Number [facility] [address] [place] [address] [place] Vascular External Study (06/09/2019 3:41 PM MECHANICAL ENGINEERING DIRECTOR) Specimen Narrative Performed At This exam was not acquired at a [facility] facility and has not been [facility] interpreted by a Roman Catholic Provider. T he exam was imported into our imaging system. Performing Organization Address City/State/Zipcode Phone Number [facility] [address] [place] [address] Cv echo 2d limited or follow up study (05/30/2019 10:50 AM MECHANICAL ENGINEERING DIRECTOR) Specimen Narrative Performed At [facility] Echo cardiography Report [address] [facility], [place] [address] Pat.Name: CARL PEREZ Pat.ID: [id number]Date: 05/30/2019 Refer.MD: LUANN GARLAND MD Exam Time: 10:41:00 AM Study Type:Ro utine Echo Height: 60in Weight: 223lb BSA: 1.96 m2 Ag e: 1955,63Y Sex: FEMALE BP: 147/71 HR: 64 bpm Sonogr phr: LISS Cox Pat. Stat.:Inpatient Room: [facility] Study Status:Final Echo Event ID:[id number] Order ID: [id number] Reason for Study:evaluate for LV noncomp action [...] 3.3 l/m/m Signed 05/30/2019 03:40 PM Cipriano Kleni M.D. Procedure Note Interface, Radiology Results In - 2019 3:40 PM MECHANICAL ENGINEERING DIRECTOR Echocardiography Report [address] [facility], [place] [address] Pat.Name: CARL PEREZ Pat.I D: [id number] .Date: 05/30/2019 Refer .MD: LUANN GARLAND MD Exam Time: 10:41:00 AM Study Type:Routine Echo Height: 60in Weigh t: 223lb BSA: 1.96 m2 Age: 6 1955,63Y Sex: FEMALE BP: 147/71 HR: 64 bpm Sonog rphr: LISS Cox Pat. Stat.:Inpatient Room: A743 Study Status:Final Echo Event ID:[id number] Order ID: [id number] Reason for Study:evaluate for LV noncomp action [...] PM Cipriano Klein M.D. Performing Organization Address [facility] Phone Number [facility] [address] [place] [address] ECG Pre/Post Op-Tomorrow (05/30/2019 4:03 AM MECHANICAL ENGINEERING DIRECTOR) Pathologist Sig nature Ventricular rate 67 [facility] Atrial rate 67 [facility] MA interval 150 [facility] QRSD interval 92 [facility] QT interval 412 [facility] QTC interval 435 [facility] P axis 1 36 [facility] QRS axis 1 -1 [facility] T wave axis 174 [facility] EKG impression Normal sinus rhythm with sin us arrhythmia-Voltage criteria for left ventricular hypertrophy-T wave abnormality, consider lateral ischemia- Abnormal ECG-In automated comparison with ECG of 29-MAY-2019 09:23,-T wave inversion now evident in Lateral [facility] MUSE leads- Specimen Narrative Performed At This result has an attachment that is no t available. Performing Organization Address [facility] Phone Number [facility] MUSE [address] [place] [address] Electrophysiology procedure (05/29/2019 5:34 PM MECHANICAL ENGINEERING DIRECTOR) Specimen Narrative Performed At This result has an attachment that is no t available. TITLE OF PROCEDURE: [facility] Dual-chamber pacemaker placement. PREOPERATIVE DIAGNOSES: 1. [...] This is a 63-year-old woman transferred from [facility] for the aforementioned symptomatic pause. She relates [...] medial. 2. The pacemaker is a [employer]onic [place] XT DR MRI, mod el W1DR01, serial #[id number]. 3. Atrial lead is a 4076, serial #[id number]. Viri ured P-wave 3 millivolt, pacing threshold 0.5 volt, current 0.9 mA, impedance 4 83 ohms. 4. The ventricular lead is a 4076-52 cm, serial #[id number]. Measured R-wave 14 millivolts, pacing threshold 0.5 [...] t. Performing Organization Address City/State/Zipcode Phone Number [facility] [address] [place] [address] Echocardiogram complete w contrast and 3D if needed (05/29/2019 11:58 AM MECHANICAL ENGINEERING DIRECTOR) Specimen Narrative Performed At [facility] Echo cardiography Report [address] [facility], [facility] [address], [place] [address] Pat.Name: CARL PEREZ Jennifer.ID: [id number] .Date: 05/29/2019 Refer.MD: LUANN GARLAND MD Exam Time: 11:30:00 AM Study Type:Bonnie jaeger Echo Height: 60in Weight: 221lb BSA: 1.95 m2 Ag e: 1955,63Y Sex: FEMALE BP: 161/81 HR: 64 bpm Sonogr phr: LISS Suresh Pat. Stat.:Inpatient Room: [facility] Study Status:Revised Echo Event ID:[id number] Order ID: [id number] Reason for Study:Evaluate EF pre PM impl [...] root diameter is nor mal in size. YO: There is an anterior space c onsistent [...] PA systolic pressure. MEASUREMENTS: 2D Parasternal Long [place] Ao An 2.4 cm LVPWd 1.4 cm [...] Radiology Results In - 2019 4:14 PM MECHANICAL ENGINEERING DIRECTOR Echocardiography Report [address] [place] [address] Pat.Name: CARL PEREZ Mayito Pat.I D: [id number] .Date: 05/29/2019 Refer .MD: LUANN GARLAND MD Exam Time: 11:30:00 AM Study Type:Routine Echo Height: 60in Weigh t: 221lb BSA: 1.95 m2 Age: 6 1955,63Y Sex: FEMALE BP: 161/81 HR: 64 bpm Sonog rphr: LISS Suresh Pat. Stat.:Inpatient Room: A743 Study Status:Revised Echo Event ID:[id number] Order ID: [id number] Reason for Study:Evaluate EF pre PM impl [...] Aortic root diameter is normal in size. YO: There is an anterior space con sistent [...] PA systolic pressure. MEASUREMENTS: 2D Parasternal Long [place] Ao An 2.4 cm LVPW d 1.4 [...] Revised Performing Organization Address City/State/Zipcode Phone Number [facility] [address] [place] [address] EMG general request (02/24/2019 12:28 PM MECHANICAL ENGINEERING DIRECTOR) Impressions Performed At The patient has a [...] Vega M.D. Mark Godfrey Department of Neurology [facility] [address] [facility] [place], [place] [address] Office: [phone] Narrative Performed At This result has an attachment that is no t available. NERVE CONDUCTION AND ELECTROMYOGRAPHY REPORT [facility]-[address]; [place], [place] [address]; Teleph one [phone] Name: Carl Perez Date of Procedure: 02/24/19 [...] Lumbar Spine Wo Contrast (02/24/2019 9:52 AM MECHANICAL ENGINEERING DIRECTOR) Specimen Narrative Performed At This result has an attachment that is no t available. EXAMINATION: MRI LUMBAR SPINE WO CONTRAST HM [facility] CLINICAL HISTORY: M54.16 Radiculopathy lumbar region, [...] narrowing at right L4-5 and right L5-S1 [facility]-[id number] Procedure Note Hm Interface, Radiology Results Incoming - 02/24/2019 10:22 AM MECHANICAL ENGINEERING DIRECTOR EXAMINATION: MRI LUMBAR SPINE WO CONTRAST CLINICAL [...] narrowing at right L4-5 and right L5-S1 [facility]-[id number] Performing Organization Address City/State/Zipcode Phone Number [facility] [address] [place] [address] after 12/01/2018 Insurance Payer Benefit Plan / Subscriber ID Effective Dates Phone Addre ss Type Group MEDICARE MEDICARE PART A xxxxxxxxxxx 2000-Present [facility], [place] Medicare AND B Advance Directives For more information, please contact: [phone] Type Date Recorded 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
--- OUTSIDE RECORDS SUMMARY | 2019-12-02 00:41 | XMS REPORT | Continuity of Care Document ---
:1955 Author Organization [facility] t Address [address] [place] [address] [address] [place] [id number] Care Team Providers Name Role Phone Constance Uribe DO Primary Care Physician Marlene FENTON L. Attending Clinician Joselito Attending Clinician Unavailable Jacquelyn Bhargav Attending Clinician Unavailable Eduar GHOTRA Attending Clinician Unavailable Jaylin FENTON C. Attending Clinician Lavon PALACIO Attending Clinician Wilman FENTON, F. Attending Clinician Roly FENTON Attending Clinician JAYLIN Admitting Clinician Unavailable WILMAN Admitting Clinician Unavailable Payers Payer Name Policy Policy Number Effective Expiration Source Type Date Date MEDICAREMEDICARE PART xxxxxxxxxxx 2000 Sven [place] AND 00:00:00 [facility] Bxxxxxxxxxxx2000- [place], [place] Condition Condition Condition Status Onset Resolution Last Treating Co mments Source Name Details Category Date Date Treatment Clinician Date Infection Infection Disease Active Jose ston of of 2-29 Methodi pacemaker pacemaker 00:00: st pocket pocket 00 Cardiac Cardiac Disease Active [place] arrhythmia arrhythmia 2-16 Me thodi 00:00: st 00 Allergies, Adverse Reactions, Alerts Allergy Allergy Status Severity Reaction(s) Onset Inactive Treating Comm ents Source Name Type Date Date Clinician Danyle Quintero Active Itching, Pt states Sven lowe ty to Other (See 12-01 she Method i adverse Comments) 00:00: itches [...] abdomen drug Trazodon Propensi Active Other (See 2019-0 unknown [place] ty to Comments) 12-01 Methodi adverse 00:00: st reaction 00 s to drug Family History Family Member Diagnosis Comments Start Date Stop Date Source Natural father Heart attack [place] Pentec[facility]al Natural mother Heart failure [place] [facility] Social History Social Habit Start Date Stop Date Quantity Comments Source History of tobacco Cigarette Smoker [place] use [facility]ec[facility]al Sex Assigned At [place] [facility] Exposure to Not sure [place] SARS-CoV-2 (event) Method ist Cigarettes smoked 2019-11-22 2019-11-22 [place] current (pack per 00:00:00 00:00:00 Methodi ) - Reported Cigarette 2019-11-22 2019-11-22 [place] pack-years 00:00:00 00:00:00 Pentecostal Alcohol intake 2019-11-22 2019-11-22 Current drinker [place] 00:00:00 00:00:00 of alcohol Pentecostal (finding) Smoking Status Start Date Stop Date Source Former smoker 2019-11-22 00:00:00 2019-11-22 00:00:00 Jason Negrete Medications Ordered Filled Start Stop Current Ordering Indication Dosage Frequency Signature Comments Components Source Medication Medication Date Date Medication? Clinician (SIG) Name Name gabapentin Yes 2-3 tabs Jose ston (Neurontin) 11-21 po tid Method i 300 mg 00:00: st capsule 00 carvediloL 2020- No 6.25mg Q.5D Take 6.25 Gomez (COREG) 5-07 05-07 mg by Methodi 6.25 MG 00:00: 23:[address] tablet 00 :00 (two) times a day. clonIDINE 2020- No .2mg Q.01124590 Take 0.2 Gomez HCl 5-07 05-07 [id number] mg by Methodi (CATAPRES) 00:00: 23:[address] 0.2 MG 00 :00 (three) tablet times a day. losartan 2020-0 Yes 25mg QD Take 25 mg Jose ston (COZAAR) 25 4-30 by mouth Meth jose rafael MG tablet 00:00: daily. st 00 apixaban 2019-0 2020- No 5mg Q.5D Take 1 [place] (ELIQUIS) 5 06-16 04-06 tablet (5 Me thodi mg tablet 00:00: 23:59 mg total) st 00 :00 by mouth 2 (two) times a day for 30 days. allopurinoL 2019-0 2020- No 300mg QD Take 300 Gomez (ZYLOPRIM) 06-11-02 mg by Methodi 300 MG 15:37: 00:[address] tablet 28 :00 daily. clonIDINE 2020-0 2020- No .2mg QD Take 1 [place] HCl 06-11 tablet Methodi (CATAPRES) 00:00: 23:59 (0.[address] 0.2 MG 00 :00 total) by tablet mouth every morning for 30 days. clonIDINE 2020-0 2020- No .1mg QD Take 1 [place] (CATAPRES) 06-11 tablet Method i 0.1 MG 00:00: 23:59 (0.[address] tablet 00 :00 total) by mouth every evening for 30 days. carvediloL 2020-0 2020- No 6.25mg Q.5D Take 1 [place] (COREG) 06-11 tablet Methodi 6.25 MG 00:00: 23:59 (6.[address] tablet 00 :00 total) by mouth 2 (two) times a day for 30 days. doxycycline 2020-0 2020- No 100mg Q.5D Take 1 [place] (VIBRAMYCIN 06-11-09 capsule Meth jose rafael ) 100 MG 00:00: 23:59 ([address] capsule 00 :00 total) by mouth 2 (two) times a day with meals for 7 days. apixaban 2020-0 2020- No 10mg Q.5D Take 2 [place] (ELIQUIS) 5 06-11 03-07 tablets Meth jose rafael mg tablet 00:00: 23:59 ([address] 00 :00 total) by mouth 2 (two) times a day for 5 days. apixaban 2020-0 2020- No Take 10 mg [place] (ELIQUIS) 5 3- 03-02 by mouth Met hodi mg tablet 00:00: 00:[address] 00 :00 daily x7 days, then 5 mg by mouth twice daily thereafter nadoloL 2019- No 80mg QD Take 1 Gomez (CORGARD) 06-02 03-02 tablet (80 Met hodi 80 MG 00:00: 00:00 mg total) st tablet 00 :00 by mouth daily for 30 days. amLODIPine 2019- No 5mg QD Take 1 [place] (NORVASC) 5 06-02-20 tablet (5 Me thodi mg tablet 00:00: 00:00 mg total) st 00 :00 by mouth daily for 30 days. gabapentin 2019- No 300mg Q.57898519 Take 1 [place] (NEURONTIN) 06-01- [id number] capsule Methodi 300 mg 00:00: 23:59 3D ([address] capsule 00 :00 total) by mouth 3 (three) times a day for 30 days. clonIDINE 2018-04- No .2mg Q.5D Take 0.2 Jose ston HCl 0-16 03-02 mg by Methodi (CATAPRES) 00:00: 00:[address] 0.2 MG 00 :00 (two) tablet times a day. ALPRAZolam 2018-0 Yes Q.48071740 3 (three) [place] (XANAX) 0.5 9-27 [id number] times a Methodi MG tablet 00:00: 3D day as st 00 needed. furosemide 2019- Yes 1{tbl} Q.5D Take 1 Jose ston (LASIX) 40 9-05 tablet by Meth jose rafael mg tablet 00:00: mouth 2 st 00 (two) times a day. gabapentin 2019-0 Yes 300mg Q.39849582 300 mg 3 [place] (NEURONTIN) 8-24 [id number] (three) Methodi 300 mg 00:00: 3D times a st capsule 00 day. nadolol 2020- No 1{tbl} QD Take 1 [place] (CORGARD) 12-01 02-20 tablet by Meth jose rafael 40 MG 00:00: 00:[address] tablet 00 :00 daily. HYDROcodone 2019-0 Yes 1{tbl} Q.62731814 Take 1 Gomez -acetaminop 11-18 [id number] tablet by Methodi hen (NORCO) 00:00: 3D mouth 3 st 7.5-325 mg 00 (three) per tablet times a day. gabapentin 2020- No 1{capsu Take 1 [place] (NEURONTIN) 11-18 02-20 le} capsule by M ethodi 300 mg 00:00: 00:[address] capsule 00 :00 simvastatin Yes 1{tbl} QD Take 1 [place] (ZOCOR) 40 8-11 tablet by Meth jose rafael MG tablet 00:00: mouth st 00 daily. spironolact 2020- No 50mg QD Take 50 mg Gomez one [id number] by mouth Methodi (ALDACTONE) 00:00: 23:[address] 50 MG 00 :00 tablet Vital Signs Vital Name Observation Time Observation Value Comments Source Systolic blood 2019-11-22 12:26:00 188 mm[Hg] Boni Negrete pressure Diastolic blood 2019-11-22 12:26:00 71 mm[Hg] Rena whitman Pentecostal pressure Heart rate 2019-11-22 12:26:00 85 /min Jason Negrete Body temperature 2019-11-22 12:26:00 36.17 Mari Lina Negrete Body height 2019-11-22 12:26:00 152.4 cm Jason Negrete Body weight 2019-11-22 12:26:00 93.486 kg Jason Negrete BMI 2019-11-22 12:26:00 40.25 kg/m2 Jason Negrete Respiratory rate 2019-06-12 11:15:44 18 /min Lina Negrete Oxygen saturation in 2019-06-12 11:15:44 99 /min Jason Negrete Arterial blood by Pulse oximetry Procedures Procedure Date / Time Performing Clinician Source Performed EMG 2019-11-24 13:31:59 Bettie Vega Meth odist MRI CERVICAL SPINE WO 2019-11-07 09:51:27 Bettie Vega CONTRAST X RAYS NO CHARGE MRI 2019-11-07 08:08:10 Bettie Vegaist X RAYS NO CHARGE MRI 2019-11-07 08:07:52 Bettie Vega ARTERIAL BLOOD GAS 2019-06-12 09:00:00 Khris Wetzel ethodist VANCOMYCIN LEVEL, TROUGH 2019-06-12 02:37:00 Kristal Mosqueda BASIC METABOLIC PANEL 2019-06-12 02:37:00 Rashard Khris wheelre Pentecostal MAGNESIUM LEVEL 2019-06-12 02:37:00 MylavarapuCharlene Pentecostal PHOSPHORUS LEVEL 2019-06-12 02:37:00 MylavarapCharlene vega Pentecostal ESTIMATED GFR 2019-06-12 02:37:00 Kristal Mosqueda CBC WITH PLATELET AND 2019-06-12 02:00:00 Khris Wetzel Pentecostal DIFFERENTIAL PARTIAL THROMBOPLASTIN 2019-06-12 02:00:00 Kristal Mosqueda Pentecostal TIME (PTT) MANUAL DIFFERENTIAL 2019-06-12 02:00:00 Kristal Mosqueda Pentecostal OCCULT BLOOD, STOOL 2019-06-11 22:26:00 Kristal Mosqueda Pentecostal PARTIAL THROMBOPLASTIN 2019-06-11 20:04:00 Khris Wetzel on Pentecostal TIME (PTT) US DUPLEX VENOUS UPPER 2019-06-11 08:49:17 Charlene John EXTREMITY BILATERAL CBC WITH PLATELET AND 2019-06-11 03:58:00 MylavarapCharlene vega Pentecostal DIFFERENTIAL COMPREHENSIVE METABOLIC 2019-06-11 03:58:00 MyCharlene beyer Pentecostal PANEL MAGNESIUM LEVEL 2019-06-11 03:58:00 MylavarapuCharlene Pentecostal PHOSPHORUS LEVEL 2019-06-11 03:58:00 Mylavarapu, Charlene wheeler Pentecostal ESTIMATED GFR 2019-06-11 03:58:00 Kristal Mosqueda Pentecostal MANUAL DIFFERENTIAL 2019-06-11 03:58:00 Kristal Mosqueda Pentecostal BASIC METABOLIC PANEL 2019-06-10 16:30:00 Kristal Mosqueda Pentecostal MAGNESIUM LEVEL 2019-06-10 16:30:00 Kristal Mosqueda Pentecostal PHOSPHORUS LEVEL 2019-06-10 16:30:00 Kristal Mosqueda ESTIMATED GFR 2019-06-10 16:30:00 Kristal Mosqueda URINE CULTURE 2019-06-10 10:00:00 Kristal Mosqueda URINALYSIS SCREEN AND 2019-06-10 10:00:00 Tasha Tovar MICROSCOPY, WITH REFLEX TO CULTURE ECG 12-LEAD 2019-06-10 08:36:35 cR Delgado Meth odist COMPREHENSIVE METABOLIC 2019-06-10 08:30:00 [...] XR CHEST 1 VW PORTABLE 2019-06-10 05:57:00 Rc Delgado on Pentecostal BLOOD CULTURE, AEROBIC & 2019-06-10 04:50:00 Tasha Tovar ANAEROBIC BLOOD CULTURE, AEROBIC & 2019-06-10 04:40:00 Tasha Tovar ANAEROBIC MRSA SCREEN CULTURE 2019-06-10 03:25:[address] CHEST EXTERNAL STUDY 2019-06-09 17:56:00 Kristal Mosqueda XR CHEST EXTERNAL STUDY 2019-06-09 16:36:00 Kristal Mosqueda US VASCULAR EXTERNAL STUDY 2019-06-09 15:41:00 Kristal Mosqueda ECG 12-LEAD 2019-06-01 10:14:34 Luann Garland Met hodist BASIC METABOLIC PANEL 2019-06-01 06:08:00 Luann Garland on Pentecostal HC COMPLETE BLD COUNT 2019-06-01 06:08:00 Luann Garland on Pentecostal W/AUTO DIFF B NATRIURETIC PEPTIDE 2019-06-01 06:08:00 Luann Garland on Pentecostal TROPONIN 2019-06-01 06:08:00 Luann Garland Met hodist ESTIMATED GFR 2019-06-01 06:08:00 Luann Garland Met hodist ECG 12-LEAD 2019-06-01 05:45:12 Luann Garland Met hodist BASIC METABOLIC PANEL 2019-05-31 14:58:00 Luann Garland on Pentecostal HC COMPLETE BLD COUNT 2019-05-31 14:58:00 Luann Garland on Pentecostal W/AUTO DIFF B NATRIURETIC PEPTIDE 2019-05-31 14:58:00 Luann Garland on Pentecostal TROPONIN 2019-05-31 14:58:00 Luann Garland Met hodist ESTIMATED GFR 2019-05-31 14:58:00 Luann Garland Met hodist HC ECHO 2-D F/UP LIMITED 2019-05-30 10:50:00 Barbara Dunham Pentecostal ECG PRE/POST OP 2019-05-30 04:03:06 Barbara Dunham BASIC METABOLIC PANEL 2019-05-30 04:00:00 Yuliana Pina Pentecostal MAGNESIUM LEVEL 2019-05-30 04:00:00 AgugoYuliana HC COMPLETE BLD COUNT 2019-05-30 04:00:00 JesusYuliana gonzalez W/AUTO DIFF ESTIMATED GFR 2019-05-30 04:00:00 Yuliana Pina XR CHEST 1 VW PORTABLE 2019-05-29 18:15:00 Barbara Dunham EP PACEMAKER INSERTION NEW 2019-05-29 17:34:00 Sergei Hernandez OR REPLACEMENT TTE COMPLETE, WO CONTRAST, 2019-05-29 11:58:53 Barbara Dunham W DOPPLER ([id number]) B NATRIURETIC PEPTIDE 2019-05-29 10:24:00 AgYuliana gonzalez ECG 12-LEAD 2019-05-29 09:23:48 Sergei Hernandez odist HC COMPLETE BLD COUNT 2019-05-28 17:00:00 Luann Garlandist W/AUTO DIFF PROTHROMBIN TIME WITH INR 2019-05-28 17:00:00 Luann Garland PARTIAL THROMBOPLASTIN 2019-05-28 17:00:00 Luann Garland TIME (PTT) COMPREHENSIVE METABOLIC 2019-05-28 16:14:00 Luann Garland PANEL THYROID STIMULATING 2019-05-28 16:14:00 Luann Garland HORMONE PHOSPHORUS LEVEL 2019-05-28 16:14:00 Luann Garland Me thodist MAGNESIUM LEVEL 2019-05-28 16:14:00 Luann Garland Met aide ESTIMATED GFR 2019-05-28 16:14:00 Luann Garland Met moisesist EMG 2019-02-24 12:28:20 Bettie Vega Meth odist MRI LUMBAR SPINE WO 2019-02-24 09:52:00 Bettie Vega CONTRAST Plan of Care Planned Activity Planned Date Details Comments Source Future Scheduled 2020-01-11 INFLUENZA VACCINE Boni wheeler Pentecostal Test 00:00:00 [code = INFLUENZA VACCINE] Future Scheduled 2018 65+ PNEUMOCOCCAL Gomez Pentecostal Test 00:00:00 VACCINE (1 of 2 - PCV13) [code = 65+ PNEUMOCOCCAL VACCINE (1 of 2 - PCV13)] Future Scheduled 2003-09-16 BREAST CANCER [facility] thodist Test 00:00:00 SCREENING [code = BREAST CANCER SCREENING] Future Scheduled 2003-09-16 COLONOSCOPY SCREENING chrissy Pentecostal Test 00:00:00 [code = COLONOSCOPY SCREENING] Future Scheduled 2003-09-16 SHINGLES VACCINES (#1) [place] [facility] Test 00:00:00 [code = SHINGLES VACCINES (#1)] Future Scheduled 1963-09-16 DIABETIC FOOT EXAM [place] [facility] Test 00:00:00 [code = DIABETIC FOOT EXAM] Future Scheduled 1963-09-16 URINE MICROALBUMIN [place] [facility]al Test 00:00:00 [code = URINE MICROALBUMIN] Future Scheduled 1955 DIABETIC RETINAL EYE Jose ston Pentecostal Test 00:00:00 EXAM [code = DIABETIC RETINAL EYE EXAM] Encounters Start End Encounter Admission Attending Care Care Encounter Source Date/Time Date/Time Type Type Clinicians Facility Department ID 2019-11-24 2019-11-24 [id number] [place] 00:00:00 00:00:00 BETTIE 484 Method i 2019-11-22 2019-11-22 [facility] [id number] [place] 00:00:00 00:00:00 BETTIE [address] 2019-11-07 2019-11-07 [facility] [id number] [place] 00:00:00 00:00:00 BETTIE [address] 2019-11-07 2019-11-07 [facility] [id number] [place] 00:00:00 00:00:00 BETTIE [address] 2019-11-07 2019-11-07 [facility] [id number] [place] 00:00:00 00:00:00 BETTIE [address] 2019-06-09 2019-06-12 Inpatient LAVON, [facility] 060 [id number] [place] 00:00:00 00:00:00 SRINIVASAN [address] 2019-05-28 2019-06-01 Inpatient WILMAN, [facility] 060 [id number] [place] 00:00:00 00:00:00 LUANN [address] 2019-02-24 2019-02-24 Outpatient [facility] [id number] [place] 00:00:00 00:00:00 BETTIE [address] Results Test Test Test Results Result Source Description Time Comments Comments EMG general 2019-11- Patient woke up with [place] request 14 acute pain allodynia in M ethodist 16:19:02 the left arm with predominate hand weakness. Clinical suspicion of brachial plexitis with negative imaging of her cervical spine showing postop changes from prior fusion. She comes in for an EMG NCV study to further assess. 1) Motor conductions reveal absent left ulnar response mild slowing of the left ulnar nerve. Absent left axillary nerve conduction. Radial nerve is mildly slow. Median nerve on the left mild to moderate slowing. Right median and ulnar nerves show mild slowing but normal latencies. Normal musculocutaneous and axillary conductions on the right. The left musculocutaneous response has a slight delay distal latency and decreased amplitude2) F Wave responses absent for left ulnar response3) Sensory responses show absent left ulnar conduction. Severe delay of the left median palmar latency. Severe delay of the right median palmar latency with decreased sensory nerve action potential.4) Intramuscular recordings of the left upper extremity are as noted above. 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; [place], [place] [address]; Name: Emeli PerezDate of Procedure: 11/24/19 Sex: female Date of : 4Referring Physician: John Vega MD Ht: 5 foot wt: 206 temp: 34.4/34.2Nerve Conduction (Latencies in msec, Amplitudes uV, Distance cm, Velocity M/Sec)Right Motor Nerves Dist. Lat. Prox lat. D. amp. P. Amp. Dist. Velocity Right Median 4.4 9.4 8 5.5 22 44Right Ulnar (below elb) 3.1 6.4 6.2 5.2 15 45Right Ulnar (across elb) Right Radial 3.1 6.8 5.5 4.3 19 51Right axillary 4.2 5.5Musculocutaneous 3.6 4.3 Right Median F Wave 30.6 Right Ulnar F Wave 31 Right Sensory Nerves Dist. Lat. Prox lat. Dist. amp. Prox Amp. Distance VelocityRight Median Palmar 2.6 29 8.0 Right Median Digital 3.9 8 13.0 Right Ulnar 3.1 7 11.0 Right Super. Radial 2.0 29 10.0Medial antebrachial 2.9 12.8Lateral antebrachial 1.7 18 Left Motor Nerves Dist. Lat. Prox lat. D. amp. P. Amp. Dist. Velocity Left Median 4.5 9.2 7.3 5.3 19.1 41Left Ulnar (below elb) absent Left Ulnar (across elb) Left Radial 3.3 7.7 4.0 3.6 20 45Left axillary absentMusculocutaneous 4.3 2.8Left Median F Wave 31Left Ulnar F Wave absent Left Sensory Nerves Dist. Lat. Prox lat. Dist. amp. Prox Amp. Distance VelocityLeft Median Palmar 2.9 22 8.0 Left Median Digital 3.8 9 13.0 Left Ulnar absent 11.0 Left Super. Radial 2.4 21 10.0 Medial antebrachial 2.9 13.6Lateral antebrachial 1.8 19 Electromyography (Motor Unit in mV; H=High; L=Low; P=Polyphasic; NS=Non-specific) Left Arm Fibs. Pos. Waves Fasc. Polyphasia Motor Units RecruitmentDeltoid wnl wnl wnl wnl 3-6 -1Biceps wnl wnl wnl wnl wnl wnlTriceps wnl wnl wnl wnl 3-4 mns Brachioradialis wnl wnl wnl wnl wnl wnl lst D. Interosseous wnl 3+ no motor units Extensor carpi uln. wnl wnl wnl wnl wnl wnl MRI Cervical Interface, Radiology Gomez Spine Wo 28 Results Incoming - Method ist Contrast 10:01:36 11/07/2019 10:04 AM CDTEXAMINATION: MRI CERVICAL SPINE WO CONTRASTCLINICAL HISTORY: M54.12 Radiculopathy cervical region, left [id number]: NoneTECHNIQUE: Multiplanar multisequence noncontrast enhanced examination was performed of the cervical spine.FINDINGS:Fusion of the C2 and C3 vertebral bodies. Status post ACDF C4-C7 with solid osseous fusion of C2-C7. There is evidence of fusion of the left facet joints of C4-C6 and right C5-C7, and possibly right C3-C4.No fracture. 1-2 mm retrolisthesis C3 on C4, degenerative. No suspicious osseous lesion. The cervicomedullary junction is normal in appearance. No spinal cord signal abnormality.No prevertebral edema or neck mass identified. Axial images through the disc spaces demonstrate the following:C1-C2: Degenerative changes atlantodental articulation without significant spinal canal stenosis.C2-C3: Fusion of the vertebral bodies and facet joints. There is evidence of mild congenital neural foraminal stenosis at this level without significant spinal canal stenosis.C3-C4: Uncovertebral and facet osteophytes contributes to severe bilateral neural foraminal stenosis as well as mild to moderate spinal canal, moderate left, mild right subarticular zone stenosis, contacting the spinal cord without edema.C4-C5: Status post ACDF. There is evidence of severe left neural foraminal stenosis secondary to uncovertebral and facet arthropathy as well as mild spinal canal and mild left subarticular zone stenosis, without significant right neural foraminal or subarticular zone stenosis.C5-C6: Status post ACDF. Possible mild left neural foraminal stenosis secondary to uncovertebral and facet osteophytes, with no evidence of significant spinal canal or right neural foraminal stenosis.C6-C7: Status post ACDF. Possible mild bilateral neural foraminal stenosis secondary to uncovertebral and facet osteophytes without evidence of significant spinal canal or subarticular zone stenosis.C7-T1: No significant posterior disc disease, spinal canal, subarticular zone, or neural foraminal stenosis.IMPRESSION:1. 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 Status post ACDF C4-C7.2. Multilevel degenerative changes of the cervical spine, most notably at C3-4 and C4-5 as detailed above.[id number] XR Rays No 2019-10- Interface, Radiology [facility] MRI 28 Results Incoming - Method ist 08:34:12 11/07/2019 8:37 AM CDTEXAMINATION: X RAYS NO CHARGE MRI, X RAYS NO CHARGE MRI HISTORY: 64 years old Female. M54.12 Radiculopathy cervical region, left c78.COMPARISON: Lumbar spine MRI 02/24/2019FINDINGS: CHEST: 2 views are performed. Left subclavian dual-lead pacemaker with intact leads. Mild linear atelectasis left lower lung. No consolidation, pleural effusion or pneumothorax. Cardiac mediastinal silhouette is normal. Cervical spine internal fixation instrumentation.ABDOMEN: AP view is performed over 4 exposures. Lumbosacral spine internal fixation instrumentation. Retained intrathecal medication pump catheter tubing. No pump is visualized. Inferior vena cava filter overlying the right lumbosacral junction. Moderate volume of stool in the colon without bowel obstruction. 6 mm calcification in the right hemiabdomen to the right of the L4 vertebral body, possibly bowel contents.IMPRESSION: 1. Left subclavian dual-lead pacemaker with intact leads.2. Retained intrathecal medication pump catheter tubing with absent pump.3. Inferior vena cava filter.4. Lumbosacral spine internal fixation instrumentation.[id number] Blood culture, aerobic & anaerobic 2019-06-15 11:03:13 Test Item Value Reference Range Interpretation Comme nts Blood culture isolate No growth after 5 days of Specimen InformationSpecimen (test code = 600-7) incubation. Source: BloodSpecimen Site: Peripheral Fore arm Right [place] MethodistCT Chest External [id number] 08:37:19This exam was not acquired at a Pentecostal facility and has not been interpreted by a Pentecostal Provider. The exam was imported into our imaging system.[place] MethodistUS Vascular External [id number] 08:36:55This exam was not acquired at a Pentecostal facility and has not been interpreted by a Pentecostal Provider. The exam was imported into our imaging system.[place] MethodistXR Chest External [id number] 08:36:34This exam was not acquired at a Pentecostal facility and has not been interpreted by a Pentecostal Provider. The exam was imported into our imaging system.[place] MethodistMRSA screen [id number] 13:27:26 Test Item Value Reference Interpretation Comments Range MRSA screen No Methicillin Specimen culture Resistant InformationSpec imen isolate (test Staphylococcus Source: Ariase sSpecimen code = 1754) aureus isolated. Site: Not s pecified [place] MethodistArterial blood [id number] 09:22:03 Test Item Value Reference Range Interpretation Comments pH, arterial (test code = 2744-1) 7.40 7.35-7.45 pCO2, arterial (test code = 39 35- 45 mmHg 2018-) pO2, arterial (test code = 74 80- 90 mmHg L 2703-7) Bicarbonate, arterial (test code 24.1 mmol/L -28 = 1960-4) Base excess, arterial (test code 0 -2 - 2 mEq-L = 1925-7) O2 saturation, arterial (test 95 % 95-100 code = 2708-6) Lab Interpretation (test code = Abnormal 93627-8) [place] MethodistManual [id number] 04:52:41 Test Item Value Reference Range Interpretation Comments Manual differential (test code = PERFORMED 70947-3) Neutrophils (test code = 56.0 % 39-69 73548-8) Lymphocytes (test code = 34.0 % 25-45 78105-0) Monocytes (test code = 44629-3) 6.0 % 0-10 Eosinophils (test code = 4.0 % 0-5 47962-2) Basophils (test code = 10373-8) 0.0 % 0-1 Metamyelocytes (test code = 0 % 740-1) Promyelocytes (test code = 0 % 783-1) Platelet slide review (test code Dede slt incr = 63488-8) Anisocytosis (test code = 702-1) Moderate Polychromasia (test code = Moderate 17523-7) [place] MethodistCBC with platelet and [id number] 04:52:31 Test Item Value Reference Range Interpretation Comments WBC (test code = 74714-2) 13.61 4.50- 11.00 k/uL H RBC (test code = 10709-6) 3.03 m/uL 4.2-5.5 L HGB (test code = 718-7) 8.6 g/dL 12-16 L HCT (test code = 4544-3) 28.1 % 37-47 L MCV (test code = 787-2) 92.7 fL 82-100 MCH (test code = 785-6) 28.4 pg 27-34 MCHC (test code = 786-4) 30.6 g/dL 31-37 L RDW - SD (test code = 81336-5) 55.9 fL 37-55 H MPV (test code = 64190-1) 10.9 fL 8.8-13.2 Platelet count (test code = 415 150- 400 k/uL H 58536-6) Nucleated RBC (test code = 0.00 /100 WBC 60092-5) Neutrophils (test code = 58367-7) 56.0 % 39-69 Lymphocytes (test code = 28997-1) 34.0 % 25-45 Monocytes (test code = 56012-2) 6.0 % 0-10 Eosinophils (test code = 16307-0) 4.0 % 0-5 Basophils (test code = 91428-6) 0.0 % 0-1 Lab Interpretation (test code = Abnormal 56812-1) Rayle MethodistOccult blood, dtrlb4246-05-56 04:50:26 Test Item Value Reference Range Interpretation Comments Occult blood, Negative for Specimen stool (test occult blood. InformationSpe cimen code = Source: StoolSp ecimen 2334-1) Site: Nonpreser ednzel Rayle MethodistBasic metabolic bnuma1365-68-36 03:11:58 Test Item Value Reference Range Interpretation Comments Sodium (test code = 2951-2) 144 135- 148 mEq/L Potassium (test code = 2823-3) 4.9 3.5- 5.0 mEq/L Chloride (test code = 2075-0) 106 98- 112 mEq/L CO2 (test code = 2027-9) 24 24- 31 mEq/L Anion gap (test code = 06305-3) 14@ANIO 7- 15 mEq/L BUN (test code = 3094-0) 30 mg/dL 8-23 H Creatinine (test code = 2160-0) 1.77 mg/dL 0.5-0.9 H Glucose (test code = 2345-7) 163 mg/dL 65-99 H Calcium (test code = 67701-1) 8.1 mg/dL 8.8-10.2 L Lab Interpretation (test code = Abnormal 49733-1) Jason MethodistMagnesium xofrp0014-91-68 03:11:58 Test Item Value Reference Range Interpretation Comments Magnesium (test code = 28328-4) 2.0 mg/dL 1.6-2.4 Rayle MethodistPhosphorus ofleo5522-54-63 03:11:58 Test Item Value Reference Range Interpretation Comments Phosphorus (test code = 2777-1) 3.2 mg/dL 2.4-4.5 Rayle MethodistEstimated XPB2837-89-10 03:11:58 Test Item Value Reference Range Interpretation Comments Estimated GFR (test 34 mL/min/1.73 m2 Mayito Aleksandar drake Units code = 5488) InterpretationG 1 >=90 [place] l or highG2 60-89 Mildly decrease dG3a 45-59 Mil dly to moderately decr ffugfM7s 30-44 Moderately to s everely decreasedG4 15-29 Severe ly decreasedG5 <15 Kidney yasmin lureThe eGFR was calcul ated using the [facility] Kidney Disease Epidemiology Collaboration ( CKD-EPI) equation. Interpretation is based on recommendati ons of the National Ki dney Foundation-Kidn ey Disease Outcome s Quality Initiat christine (NKF-KDOQI) pub lished in 2013. Lab Interpretation Abnormal (test code = 48956-6) Jason BrownistVancomycin level, szogfc0168-30-82 03:10:33 Test Item Value Reference Range Interpretation Comments Vancomycin, trough 24.2 ug/mL 10-20 HH Therapeut ic Ranges: (test code = 27415-8) Peak 30.0 - 40.0 ug/mL T rough 10.0 - 20.0 ug/mL Lab Interpretation Abnormal (test code = 30706-0) Jason MethodistPartial thromboplastin time, vashbahau7760-61-50 03:00:50 Test Item Value Reference Range Interpretation Comments PTT (test code = 103.7 23.0- 36.0 sec PTT thera peutic range 60638-0) for unfractiona masoud heparin is61.0- 112.0 seconds which corresponds to Anti-Xa0.3-0.7 U/ml.PTT result s called to and r ead back by TOMMY LOPEZ/MMWT20 a t 06/12/2019 02: 56 by K[facility]. Lab Interpretation Abnormal (test code = 14113-9) Rayle MethodistECG 12 vmnh6210-47-60 10:50:20 Test Item Value Reference Range Interpretation Comments Ventricular rate (test 64 code = 253) Atrial rate (test code 64 = 255) MI interval (test code 142 = 266) QRSD [...] normal variant ( R in aVL , [place] product )-Nonspecific T wave abnormality-Abnormal ECG-In automated comparison with ECG of -MAY-2019 10:14,-Sinus rhythm has replaced Electronic atrial pacemaker-Electronical ly Signed By Thomas Mazariegos MD ([id number]) on 06/11/2019 10:50:14 AM Rayle MethodistUs duplex venous upper lelwliitk2131-99-06 10:05:00Interface, Radiology Results In - 06/11/2019 10:05 AM [facility] Vascular Ultrasound Laboratory Upper Extremity Venous [address] [place] [address] Pat.Name: EMELI PEREZ.ID: [id number] St.Date: 06/11/2019 Refer.MD: KRISTAL MOSQUEDA MD Exam Time: 7:58:00 AM Study Type:UE Venous Height: 62in Age: 6 1955,63Y Sex: FEMALE Sonogrphr: Braeden Kim, RN, RVT Pat. Stat.:Inpatient Room: SI8586 Tape Vol: DP, CPT - 4: 48307 Echo Event ID:[id number] Order ID: [id number] Reason for Study:Left arm pain and edema [...] FINDINGS: --Signed 06/11/2019 10:05 Td Fuentes MD, [facility] MethodistComprehensive metabolic xirql8599-68-94 04:39:25 Test Item Value Reference Range Interpretation Comments Sodium (test code = 142 135- 148 mEq/L 2951-2) Potassium (test code = 5.0 3.5- 5.0 mEq/L 2823-3) Chloride (test code = 103 98- 112 mEq/L 2074-0) CO2 (test code = 2027-) 26 24- 31 mEq/L Anion gap (test code = 13@ANIO 7- 15 mEq/L 79513-1) BUN (test code = 3094-0) 29 mg/dL 8-23 H Creatinine (test code = 1.92 mg/dL 0.5-0.9 H 2160-0) Glucose (test code = 126 mg/dL 65-99 H 2345-7) Calcium (test code = 8.3 mg/dL 8.8-10.2 L 40486-0) Protein (test code = 7.2 g/dL 6.3-8.3 9994.6-7.0 2885-2) g/dL1 kjwb8352.4-7.6 g/dL7 months-5vzig517 .1- 7.3 g/dL1-2 dkmih167.6-7.5 g/dL>3 .0-8.0 g/iH57-5080399. 3-8 .3 g/dL Albumin (test code = 2.7 g/dL 3.5-5 L 1751-7) A/G ratio (test code = 0.6 0.7-3.8 L 1759-0) Alkaline phosphatase 160 U/L 35-104 H (test code = 6768-6) AST (test code = 1920-8) 30 U/L 10-35 ALT (test code = 1742-6) 16 U/L 5-50 Total bilirubin (test <0.2 0-1.2 code = 1974-2) Lab Interpretation (test Abnormal code = 23611-5) Rayle MethodistUrinalysis screen and microscopy, with reflex to culture 2019-06-10 12:40:51 Test Item Value Reference Range Interpretation Comments Specimen site (test code = Clean catch 1988396) Color, UA (test code = 5778-6) Straw Appearance, UA (test code = Clear 5767-9) Specific gravity, UA (test code = 1.013 1.001-1.035 5811-5) pH, UA (test code = 5803-2) 5.0 5.0-8.5 Protein, UA (test code = 25840-3) Negative Negative Glucose, UA (test code = 55586-9) Negative Negative Ketones, UA (test code = 2514-8) Negative Negative Bilirubin, UA (test code = Negative Negative 5770-3) Blood, UA (test code = 5794-3) Negative Negative Nitrite, UA (test code = 5802-4) Negative Negative Urobilinogen, UA (test code = <2.0 <2.0 00326-2) Leukocyte esterase, UA (test code Negative Negative = 5799-2) Epithelial cells, UA (test code = 2 /HPF 5787-7) WBC, UA (test code = 5821-4) None seen 0- 4 /HPF RBC, UA (test code = 12461-5) <1 0- 5 /HPF Bacteria, UA (test code = None seen None seen 84057-3) Yeast, UA (test code = 21198-7) None seen Yeast with pseudohyphae, UA (test None seen code = 06826-3) Hyaline casts, UA (test code = 1 /LPF 5796-8) Jason NegreteUrine bgjstsk7638-69-52 12:05:19 Test Item Value Reference Range Interpretation Comments Urine culture (test SEE COMMENT Bacteriu arlene screen code = 1208755) negative. Jason NegreteB natriuretic eouyijq9325-61-03 11:16:02 Test Item Value Reference Range Interpretation Comments BNP (test code = 71255-0) 229 pg/mL 0-100 H Lab Interpretation (test code = Abnormal 18692-8) Jason NegreteHemoglobin D3c5756-93-86 11:07:02 Test Item Value Reference Range Interpretation Comments Hemoglobin A1C (test 7.7 % 4-5.6 H HbA1c c utoffs for code = 07802-5) diagnosing diabetes:4.0% - 5.6% = normal5.7% - 6.4% = increased risk for diabetes (prediabetes)9> =6.5% = kgrwhadm4Hijj s for glycemic contro l (ADA 2016)< 7.0% Ta rget for non adults with aj betes. More or less stringent targe ts may be appropriate for individual gagan ents. <7.5% Target for Children and adolescents wit h type 1 diabetes. Lab Interpretation (test Abnormal code = 04652-5) Jason NegreteThyroid stimulating inowqsr4252-18-39 09:52:04 Test Item Value Reference Range Interpretation Comments TSH (test code = 3016-3) 1.46 0.27- 4.20 uIU/mL Gomez PentecostalLipid hghdx5522-22-65 09:48:02 Test Item Value Reference Interpretation Comments [...] (mg/dL) interpretation (test < 200 code = 66887-6) Desirable 200-239 Borderline -high >=240 Hi gh [...] mg/dL) Lab Interpretation Abnormal (test code = 38193-3) Rayle MethodistLactic acid umhzt4882-14-69 09:48:00 Test Item Value Reference Range Interpretation Comments Lactic acid (test code = 97983-6) 1.6 mmol/L 0.5-2.2 Rayle ZxnnuaexsSdjvqcqf7728-54-25 09:29:32 Test Item Value Reference Range Interpretation Comments Troponin (test code 0.035 ng/mL 0-0.04 In patie nts suspected = 61658-7) of having a sidney cardial infarction, monique [...] decreased by le ss than 0.020 ng/mL Rayle MethodistProthrombin time with QDN9414-16-88 09:24:07 Test Item Value Reference Range Interpretation Comments Prothrombin time (test 14.9 11.5- 14.5 sec H code = 5902-2) INR (test code = 1.2 [facility] 49608-7) Normalized Rati o (INR) is a therapeuti c monitoring tool for patients who ar e stable on oral anticoagulant t herapy. An INR of 2.0-3 .0 is suggested for d eep vein thrombosis/pulm onary embolism. Lab Interpretation Abnormal (test code = 02157-6) Rayle MethodistXR Chest 1 Vw Ahtplabp7369-79-16 06:53:15Hm Interface, Radiology Results 06/10/2019 6:56 AM CSTEXAMINATION: XR CHEST 1 VW PORTABLECLINICAL HISTORY: 63 years Female Pulmonary edema TMHCOMPARISON: Most recent prior at HIMPRESSION:1.Left chest wall cardiac device is similar to prior. Cardiomediastinal silhouette is stable. Central vasculature is at the upper limits of normal. Previous groundglass opacities have improved, probably was edema. 2.The lungs are hypoinflated with bibasilar atelectasis. There is no new consolidation,effusion or pneumothorax.[facility]-KX46IFOLEzkycxi MethodistECG Pre/Post Io-Qnszbbkc9235-93-24 15:25:43 Test Item Value Reference Range Interpretation Comments Ventricular rate (test 67 code = 253) Atrial rate (test code 67 = 255) MI interval (test code 150 = 266) QRSD [...] wave inversion now evident in Lateral leads- Rayle MethodistElectrophysiology eiscoxbat4058-06-62 08:27:25TITLE OF PROCEDURE:Dual-chamber pacemaker placement.PREOPERATIVE DIAGNOSES:1. Sinus [...] BACKGROUND:This is a 63-year-old woman transferred from [facility] for the aforementionedsymptomatic pause. She relates that [...] and medial.2. The pacemaker is a Medtronic [place] XT DR MRI, model W1DR01, serial#[id number].3. Atrial lead is a 4076, serial #[id number]. Measured P-wave 3 millivolt,pacing threshold 0.5 volt, current 0.9 mA, impedance 483 ohms.4. The ventricular lead is a 4076-52 cm, serial #[id number]. Measured R-wave14 millivolts, pacing threshold0.5 volt, current 0.8 mA, impedance 756 ohms.5. Conscious sedation was Versed and fentanyl.6. Estimated blood loss 50 mL.CONCLUSIONS:Successful dual-chamber pacemaker placement.RECOMMENDATIONS:1. The patient to recovery, then to her room.2. Repeat the echocardiogram with intravenous echo contrast to ascertainwhether she has a true LV noncompaction syndrome or not.[facility] echo 2d limited or follow up lcicx2777-01-78 15:40:00Interface, Radiology Results In - 05/30/2019 3:40 PM [facility] Echocardiography Report [id number]Name: EMELI PEREZ.ID: [id number].Date: 05/30/2019 Refer.MD: LUANN GARLAND MD Exam Time: 10:41:00 AM Study Type:Routine Echo Height: 60in Weight: 223lb BSA: 1.96 m2 Age: 6 1955,63Y Sex: FEMALE BP: 147/71 HR: 64 bpm Sonogrphr: LISS Cox Pat. Stat.:Inpatient Room: A743 Study Status:Final Echo Event ID:[id number] Order ID: [id number] Reason forStudy:evaluate for LV noncompaction USE CONTRAST [...] 3.3 l/m/m2 Signed 05/30/2019 03:40 PMCipriano Klein M.D.Rayle MethodistEchocardiogram complete w contrast and 3D if flgdyx5563-90-78 16:04:00Interface, Radiology Results In - 05/29/2019 4:14 PM [facility] Echocardiography Report [address] [place] [address] Pat.Name: EMELI PEREZ Pat.ID: [id number].Date: 05/29/2019 Refer.MD: LUANN GARLAND MD Exam Time: 11:30:00 AM Study Type:Routine Echo Height: 60in Weight: 221lb BSA: 1.95 m2 Age: 6 1955,63Y Sex: FEMALE BP: 161/81 HR: 64 bpm Sonogrphr: LISS Suresh Pat. Stat.:Inpatient Room: [facility] Study Status:Revised Echo Event ID:[id number] Order ID: [id number] Reason forStudy:Evaluate EF pre PM implantProcedures: 2D [...] estimate PA systolic pressure. MEASUREMENTS: 2DParasternal [place] An 2.4 cm LVPWd 1.4 cm [...] 4:14:16 Denis Hansen M.D.[facility] general ntghbqm5637-28-72 15:52:53 The patient has a chronic right [...] well Bettie Vega M.D.[facility] Department of Neurology[address] [address]Xrvtrw: [phone]: NERVE CONDUCTION AND ELECTROMYOGRAPHY REPORT [facility]; [place], [place] [address]; Name: Emeli Perez Date of Procedure: 02/24/19Date [...] 20HP wnl -1[facility] MethodistMRI Lumbar Spine Wo Sqohfebv6461-54-68 10:19:30Hm Interface, Radiology Results Incoming 02/24/2019 10:22 AM CSTEXAMINATION: MRI LUMBAR SPINE [...] foraminal narrowing at right L4-5 and right K0-[id number]-[id number] Pentecostal
[2019-12-02] MEDS ORDERED: FENTANYL CITR 100 MCG/2 ML ONE ×2 (01:23→10:08)
[2019-12-02 01:47] LABS: Absolute Lymphocytes (CBC) 1.8 K/uL (0.7-4.9); Basophils % 0.9 % (0-1.3); Hematocrit 36.2 % (36.0-45.0); Lymphocytes % 17.5 % (15.3-44.8); MPV 10.5 fL (7.6-11.3); RBC Red Blood Cell Count 3.91 M/uL (3.86-4.86)
[2019-12-02 01:51] LABS: Protime INR 1.03
[2019-12-02 02:11] LABS: Albumin 3.5 g/dL (3.4-5.0); Bilirubin Direct 0.1 mg/dL (0-0.2); Bilirubin Total 0.3 mg/dL (0.2-1.0); Protein, Total 8.7 g/dL (6.4-8.2)
[2019-12-02 02:12] LABS: Potassium 6.2 mmol/L (3.5-5.1)
[2019-12-02] MEDS ORDERED: INSULIN -REGULAR HUMAN 50 UNIT/0.5 ML ML ONE ×4 (02:37→17:11)
[2019-12-02] MEDS ORDERED: NA CHLORIDE 0.9% 500 ML ONE (02:37)
[2019-12-02 02:56] LABS: Magnesium 2.7 mg/dL (1.8-2.4); Troponin (Emerg Dept Use Only) 0.06 ng/mL (0.0-0.045)
[2019-12-02 03:20] LABS: Arterial Blood Carboxyhemoglob 3.8 % (0-1.5); Blood Gas Oxyhemoglobin 89.3 % (94-97); Blood O2 Saturation 94.1 % (92-98.5)
--- NOTE | 2019-12-02 03:23 | EDPHYS ---
Physician Documentation [facility] Name: Emeli Perez Age: 64 yrs Sex: Female : 1955 Arrival Date: 12/02/2019 Time: 00:37 Bed 8 Private MD: ED Physician Simeon Taylor HPI: 12/01 01:17 This 64 yrs old Black Female presents to ER via EMS with complaints of Leg Pain. mh7 01:17 The patient presents with pain, that is acute. The complaints affect the right leg and mh7 left leg. Context: The problem was sustained at home, resulted from an unknown cause, the patient can partially bear weight, uses a walker. Onset: The symptoms/episode began/occurred 1 day(s) ago. Modifying factors: The symptoms are alleviated by nothing. the symptoms are aggravated by movement, weight bearing, touching. Associated signs and symptoms: Pertinent negatives fever, nausea, numbness, rash, swelling, tingling, vomiting, warmth, weakness. Treatment prior to arrival includes: no previous treatment. Severity of symptoms: At their worst the symptoms were moderate, earlier today, in the emergency department the symptoms are unchanged. Historical: - Allergies: 00:48 Codeine; rr5 00:48 PENICILLINS; rr5 00:48 Morphine; rr5 00:48 Darvocet-N 100; rr5 - Home Meds: 00:48 simvastatin 40 mg Oral tab for Hyperlipidemia [Active]; spironolactone 50 mg Oral tab 1 rr5 tab once daily [Active]; furosemide 80 mg oral tab 1 tab 2 times per day [Active]; clonidine HCl 0.2 mg Oral tab 1 tab once daily [Active]; alprazolam 0.5 mg Oral tab 1 tab [Active]; carvedilol 6.25 mg oral tab 1 tab 2 times per day [Active]; losartan 25 mg oral tab 1 tab once daily [Active]; hydrocodone-acetaminophen 10-650 mg oral tab 1 tab every 6 hours [Active]; gabapentin 300 mg Oral cap [Active]; - PMHx: 00:48 Arthritis; CHF; Gout; Hyperlipidemia; Hypertension; Anxiety; drop foot; kidney failure; rr5 Atrial Fib; - PSHx: 00:48 pacemaker; spinal stenosis; rr5 - Immunization history:: Adult Immunizations up to date. - Social history:: Smoking status: Patient reports the use of cigarette tobacco products, smokes one-half pack cigarettes per day, Patient/guardian denies using alcohol, street drugs. ROS: 01:17 Constitutional: Negative for fever, chills, and weight loss, Eyes: Negative for injury, mh7 pain, redness, and discharge, ENT: Negative for injury, pain, and discharge, Neck: Negative for injury, pain, and swelling, Cardiovascular: Negative for chest pain, palpitations, and edema, Respiratory: Negative for shortness of breath, cough, wheezing, and pleuritic chest pain, Abdomen/GI: Negative for abdominal pain, nausea, vomiting, diarrhea, and constipation, : Negative for injury, bleeding, discharge, and swelling, Skin: Negative for injury, rash, and discoloration, Neuro: Negative for headache, weakness, numbness, tingling, and seizure, Psych: Negative for depression, anxiety, suicide ideation, homicidal ideation, and hallucinations, Allergy/Immunology: Negative for hives, rash, and allergies, Endocrine: Negative for neck swelling, polydipsia, polyuria, polyphagia, and marked weight changes, Hematologic/Lymphatic: Negative for swollen nodes, abnormal bleeding, and unusual bruising. Exam: 01:17 Head/Face: Normocephalic, atraumatic. Neck: Trachea midline, no thyromegaly or masses mh7 palpated, and no cervical lymphadenopathy. Supple, full range of motion without nuchal rigidity, or vertebral point tenderness. No Meningismus. Chest/axilla: Normal chest wall appearance and motion. Nontender with no deformity. No lesions are appreciated. Cardiovascular: Regular rate and rhythm with a normal S1 and S2. No gallops, murmurs, or rubs. Normal PMI, no JVD. No pulse deficits. Respiratory: Lungs have equal breath sounds bilaterally, clear to auscultation and percussion. No rales, rhonchi or wheezes noted. No increased work of breathing, no retractions or nasal flaring. 01:17 Skin: Warm, dry with normal turgor. Normal color with no rashes, no lesions, and no evidence of cellulitis. 01:17 Constitutional: The patient appears in no acute distress, alert, awake, uncomfortable. 01:17 Abdomen/GI: Inspection: abdomen appears normal, obese Bowel sounds: normal, in all quadrants, Palpation: moderate abdominal tenderness, in the suprapubic area and left lower quadrant, Rectal exam: the exam is deferred, because of patient request, Indicators: McBurney's point is not tender, Carr's sign is negative, Rovsing's sign is negative, Obturator sign is negative, Psoas sign is negative, Liver: no appreciated palpable abnormalities, Hernia: not appreciated. 01:17 Musculoskeletal/extremity: Extremities: noted in the left leg and right leg: pain, tenderness, ROM: limited active range of motion due to pain, in the left leg and right leg, limited passive range of motion due to pain, in the left leg and right leg, Circulation is intact in all extremities. Pulses: are normal with no appreciated deficits, Perfusion: the patient is normally perfused throughout, Perfusion: the extremity is normally perfused throughout, Sensation intact. Compartment Syndrome exam of affected extremity: is normal. no numbness, no tingling, no sensation deficit, no palor, no weak pulses, Joints: All joints appear normal with full range of motion. Tendon exam: specific tendon testing normal through active and passive range of motion DVT Exam: no swelling, negative Homans' sign noted on exam, no appreciated bluish discoloration, no erythema, no increased warmth, pain, that is moderate, of the right leg and left leg, tenderness, that is moderate, of the right leg and left leg, Calves: have equal circumference, are tender, bilaterally, chronic foot drop right foot. Vital Signs: 00:25 BP 99 / 64; Pulse 70; Resp 19; Temp 98.4; Pulse Ox 96% ; Weight 93.44 kg; Height 5 ft. rr5 0 in. (152.40 cm); Pain 10/10; 01:00 BP 133 / 85; Pulse 75; Resp 19; Pulse Ox 98% ; rr5 02:00 BP 125 / 78; Pulse 85; Resp 22; Pulse Ox 98% on R/A; rr5 03:08 BP 131 / 69; Pulse 67; Resp 20; Pulse Ox 99% ; rr5 04:20 BP 128 / 105; Pulse 98; Resp 19; Pulse Ox 99% ; rr5 00:25 Body Mass Index 40.23 (93.44 kg, 152.40 cm) rr5 MDM: 00:58 Patient medically screened. [facility] 03:17 Differential diagnosis: contusion, Muscle cramps, Rhabdomyolysis, DVT. Data reviewed: [facility] vital signs, nurses notes, old medical records, lab test result(s), cardiac enzymes, CBC, electrolytes, urinalysis, EKG, radiologic studies, CT scan, plain films. Data interpreted: Pulse oximetry: on room air is 99 %. Interpretation: normal. Counseling: I had a detailed discussion with the patient and/or guardian regarding: the historical points, exam findings, and any diagnostic results supporting the discharge/admit diagnosis, lab results, radiology results, the need for further work-up and treatment in the hospital. Response to treatment: the patient's symptoms have mildly improved after treatment. 12/01 01:04 Order name: CBC with Diff; Complete Time: 02:13 [facility] 12/01 01:04 Order name: Basic Metabolic Panel; Complete Time: 02:14 [facility] 12/01 01:04 Order name: LFT's; Complete Time: 02:14 [facility] 12/01 01:04 Order name: Protime (+inr); Complete Time: 02:13 [facility] 12/01 01:04 Order name: Ptt, Activated; Complete Time: 02:13 [facility] 12/01 01:04 Order name: CPK; Complete Time: 02:14 [facility] 12/01 02:15 Order name: Troponin (emerg Dept Use Only); Complete Time: 03:07 7 12/01 02:16 Order name: Magnesium; Complete Time: 03:07 [facility] 12/01 02:19 Order name: Arterial Blood Gas; Complete Time: 05:51 7 12/01 02:20 Order name: Acetone, Serum; Complete Time: 02:30 7 12/01 02:37 Order name: Lipase; Complete Time: 02:53 7 12/01 03:07 Order name: Glucose; Complete Time: 05:51 [facility] 12/01 03:10 Order name: Glucose, Ancillary Testing; Complete Time: 03:14 EDMS 12/01 03:39 Order name: Urine Microscopic Only rr5 12/01 03:39 Order name: Urine Culture [facility] 12/01 03:40 Order name: Urine Dipstick--Ancillary (enter results) tt3 12/01 03:41 Order name: Urine Dipstick-Ancillary EDMS 12/01 04:49 Order name: Glucose rr5 12/01 04:56 Order name: Glucose, Ancillary Testing; Complete Time: 05:51 EDMS 12/01 05:16 Order name: Hemoglobin A1c; Complete Time: 05:51 EDMS 12/01 05:48 Order name: Basic Metabolic Panel; Complete Time: 05:51 EDMS 12/01 05:49 Order name: Glucose Level; Complete Time: 05:51 EDMS 12/01 05:56 Order name: Osmolality, Serum EDMS 12/01 06:16 Order name: Glucose, Ancillary Testing MS 12/01 07:11 Order name: Glucose, Ancillary Testing EDMS 12/01 08:24 Order name: Glucose, Ancillary Testing EDMS 12/01 09:26 Order name: Glucose, Ancillary Testing EDMS 12/01 10:27 Order name: Glucose, Ancillary Testing MS 12/01 10:46 Order name: [facility] 12/01 12:04 Order name: Glucose, Ancillary Testing [facility] 12/01 01:04 Order name: Urine Dipstick-Ancillary (obtain specimen); Complete Time: 04:22 [facility] 12/01 01:06 Order name: CT Abd/Pelvis - Without Contrast [facility] 12/01 01:08 Order name: US Extremity Venous W Compression Cleve [facility] 12/01 02:15 Order name: EKG - Nurse/Tech; Complete Time: 03:18 [facility] 12/01 02:16 Order name: Chest Single View XRAY [facility] 12/01 04:22 Order name: Straight Cath; Complete Time: 04:23 5 12/01 13:53 Order name: Basic Metabolic Panel [facility] 12/01 17:06 Order name: Glucose, Ancillary Testing EDWY Administered Medications: 01:37 Drug: fentaNYL (PF) 25 mcg {Note: rass 0.} Route: IVP; Site: right forearm; rr5 03:00 Follow up: Response: No adverse reaction; Pain is unchanged, physician notified ea 03:00 Drug: NS 0.9% 500 ml Route: IV; Rate: bolus; Site: right forearm; ea 04:00 Follow up: Response: No adverse reaction; IV Status: Completed infusion; IV Intake: rr5 500ml 03:12 Drug: Insulin Regular Human 5 units {Co-Signature: rr5 (Joshua Hopkins RN).} {Note: ea verbal order obtained to give 5 units now and recheck glucose in an hour repeat 5 units if appropriate .} Route: IVP; Site: right forearm; 04:00 Follow up: Response: No adverse reaction; Blood sugar is lowered rr5 03:15 Drug: fentaNYL (PF) 25 mcg {Note: RASS 1 .} Route: IVP; Site: right forearm; ea 04:00 Follow up: Response: No adverse reaction; RASS: Alert and Calm (0) rr5 04:00 Drug: Insulin Drip - (Insulin Regular Human 100 units, NS 0.9% 100 ml) {Co-Signature: juan daniel rr5 (Joshua Hopkins RN).} Route: IV; Rate: calculated rate; Site: right forearm; 06:00 Follow up: Rate change 7 units/hr; BS 485 mg/dl rr5 06:00 Follow up: Response: No adverse reaction; Blood sugar is lowered; IV Status: Infusion rr5 continued upon admission 04:00 Drug: NS 0.9% 1000 ml Route: IV; Rate: 1 bolus; Site: right forearm; rr5 05:00 Follow up: Response: No adverse reaction; IV Status: Completed infusion; IV Intake: rr5 1000ml 04:38 Not Given (Physician Discretion): Calcium Chloride 1 grams IVP once rr5 04:38 Not Given (Physician Discretion): Kayexalate 15 grams PO once rr5 Disposition: 12/02/19 03:22 Hospitalization ordered by Sony Hauser for Inpatient Admission. 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 - Bed requested for Telemetry/MedSurg (Inpatient). - Status is Inpatient Admission. rv - Condition is Serious. - Problem is new. - Symptoms have improved. Signatures: Dispatcher [employer] EDWY Kayla Salinas, RN RN aa5 Dilshad Interiano, KITCHEN DESIGNER-C KITCHEN DESIGNER-Cla1 Itzel Yee, RN RN cg Allyssa Parham RN RN ea Vicente, Ronaldo, RN RN rv Roque, Raymond, RN RN rr5 Simeon Taylor MD MD 7 Joshua Hopkins RN rr5 Corrections: (The following items were deleted from the chart) 01:19 01:06 Spine Lumbar Wo Con+CT.RAD.BRZ ordered. EDWY EDMS 03:41 03:22 Hospitalization Ordered by Sony Hauser MD for Inpatient Admission. Preliminary cg diagnosis is Nonketotic Hyperosmolar Syndrome. Bed requested for Intensive Care Unit. Status is Inpatient Admission. Condition is Serious. Problem is new. Symptoms have improved. mh7 17:12 03:41 12/02/2019 03:22 Hospitalization Ordered by Sony Hauser MD for Inpatient aa5 Admission. 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 Bed requested for [facility] ER HOLD. Status is Inpatient Admission. Condition is Serious. Problem is new. Symptoms have improved. cg 20:14 17:12 12/02/2019 03:22 Hospitalization Ordered by Sony Hauser MD for Inpatient rv Admission. 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 Bed requested for Telemetry/MedSurg (Inpatient). Status is Inpatient Admission. Condition is Serious. Problem is new. Symptoms have improved. aa5
--- NOTE | 2019-12-02 03:23 | ER ---
Nurse's Notes [facility] Name: Emeli Perez Age: 64 yrs Sex: Female : 1955 Arrival Date: 12/02/2019 Time: 00:37 Bed 8 Private MD: Diagnosis: Nonketotic Hyperosmolar Syndrome Presentation: 12/01 00:25 Chief complaint: EMS states: patient complaint of severe legs pain, no trauma noted. rr5 when we got there her legs is shaking up and she said it feels like "there is a snake running around my leg". 00:25 Coronavirus screen: Client denies travel out of the [place] in the last 14 days. At this rr5 time, the client does not indicate any symptoms associated with coronavirus-19. Ebola Screen: Patient negative for fever greater than or equal to 101.5 degrees Fahrenheit, and additional compatible Ebola Virus Disease symptoms Patient denies exposure to infectious person. Patient denies travel to an Ebola-affected area in the 21 days before illness onset. Initial Sepsis Screen: Does the patient meet any 2 criteria? No. Patient's initial sepsis screen is negative. Does the patient have a suspected source of infection? No. Patient's initial sepsis screen is negative. Risk Assessment: Do you want to hurt yourself or someone else? Patient reports no desire to harm self or others. Note EMS stated patient seeing neurologist for her left hand ring finger is twisted. Onset of symptoms was December 01, 2019. 00:25 Method Of Arrival: EMS: [facility] rr5 00:25 Acuity: CORNELIA 3 rr5 Historical: - Allergies: 00:48 Codeine; rr5 00:48 PENICILLINS; rr5 00:48 Morphine; rr5 00:48 Darvocet-N 100; rr5 - Home Meds: 00:48 simvastatin 40 mg Oral tab for Hyperlipidemia [Active]; spironolactone 50 mg Oral tab 1 rr5 tab once daily [Active]; furosemide 80 mg oral tab 1 tab 2 times per day [Active]; clonidine HCl 0.2 mg Oral tab 1 tab once daily [Active]; alprazolam 0.5 mg Oral tab 1 tab [Active]; carvedilol 6.25 mg oral tab 1 tab 2 times per day [Active]; losartan 25 mg oral tab 1 tab once daily [Active]; hydrocodone-acetaminophen 10-650 mg oral tab 1 tab every 6 hours [Active]; gabapentin 300 mg Oral cap [Active]; - PMHx: 00:48 Arthritis; CHF; Gout; Hyperlipidemia; Hypertension; Anxiety; drop foot; kidney failure; rr5 Atrial Fib; - PSHx: 00:48 pacemaker; spinal stenosis; rr5 - Immunization history:: Adult Immunizations up to date. - Social history:: Smoking status: Patient reports the use of cigarette tobacco products, smokes one-half pack cigarettes per day, Patient/guardian denies using alcohol, street drugs. Screenin:48 Abuse screen: Denies threats or abuse. Denies injuries from another. Nutritional rr5 screening: No deficits noted. Tuberculosis screening: No symptoms or risk factors identified. Fall Risk Secondary diagnosis (15 points) impaired mobility, IV access (20 points). Gait- Impaired (20 pts.). Total Floyd Fall Scale indicates High Risk Score (45 or more points). Fall prevention measures have been instituted. Side Rails Up X 2 Frequent Obs/Assessments Occuring As available patient and family educated on Fall Prevention Program and Strategies. Assessment: 01:00 General: Appears uncomfortable, Behavior is cooperative, restless. Pain:. Neuro: Level ea of Consciousness is awake, alert, obeys commands, Oriented to person, place, time, situation. Cardiovascular: Patient's skin is warm and dry. Respiratory: Airway is patent Respiratory effort is even, unlabored, Respiratory pattern is regular, symmetrical. GI: No deficits noted. Derm: Skin is pink, warm \\T\\ dry. 03:08 Reassessment: back from CT and ultrasound blood extraction done and sent to laboratory rr5 glucose High Ed provider aware repeat glucose done per protocol. 03:30 Reassessment: Patient appears in no apparent distress at this time. Patient is alert, rr5 oriented x 3, equal unlabored respirations, skin warm/dry/pink. hospitalist at bedside assessing the patient with verbal order to start NS 1 liter as bolus and start insulin drip. 04:46 Reassessment: Patient and/or family updated on plan of care and expected duration. Pain ea level reassessed. Patient is alert, oriented x 3, equal unlabored respirations, skin warm/dry/pink. 17:22 Reassessment: Unable to give report at this time due to the nurse just receiving a pt. randa Dickey RN will have BRANDIN Campbell call me back for report. Vital Signs: 00:25 BP 99 / 64; Pulse 70; Resp 19; Temp 98.4; Pulse Ox 96% ; Weight 93.44 kg; Height 5 ft. rr5 0 in. (152.40 cm); Pain 10/10; 01:00 BP 133 / 85; Pulse 75; Resp 19; Pulse Ox 98% ; rr5 02:00 BP 125 / 78; Pulse 85; Resp 22; Pulse Ox 98% on R/A; rr5 03:08 BP 131 / 69; Pulse 67; Resp 20; Pulse Ox 99% ; rr5 04:20 BP 128 / 105; Pulse 98; Resp 19; Pulse Ox 99% ; rr5 00:25 Body Mass Index 40.23 (93.44 kg, 152.40 cm) rr5 ED Course: 00:37 Patient arrived in ED. rr5 00:41 Simeon Taylor MD is Attending Physician. mh7 00:42 Triage completed. rr5 00:48 Arm band placed on right wrist. rr5 01:00 Allyssa Parham, BRANDIN is Primary Nurse. ea 01:01 Patient has correct armband on for positive identification. Bed in low position. Call ea light in reach. Side rails up X2. 01:20 Missed attempt(s): 22 gauge in right antecubital area. Bleeding controlled, band aid ea applied, catheter tip intact. 01:25 Missed attempt(s): 22 gauge in right antecubital area. Bleeding controlled, band aid ea applied, catheter tip intact. 01:35 Inserted saline lock: 22 gauge in right forearm, using aseptic technique. Blood rr5 collected. 02:13 Notified ED physician of a critical lab result(s). Potassium of 6.2, [place] 84, bb Glucose 1215. Dr Taylor notified. 02:28 CT Abd/Pelvis - Without Contrast In Process Unspecified. EDMS 03:10 EKG done, by ED staff, reviewed by Simeon Taylor MD. X-ray(s) taken. rr5 03:19 Sony Hauser MD is Hospitalizing Provider. mh7 03:30 US Extremity Venous W Compression Cleve In Process Unspecified. EDMS 03:30 Urine collected: clean catch specimen, clear. rr5 03:37 Chest Single View XRAY In Process Unspecified. EDMS 03:40 Notified ED physician of a critical lab result(s). BGL of 1137 Dr Taylor notified. bb 04:10 Inserted saline lock: 20 gauge in left wrist, using aseptic technique. Blood collected. rr5 04:10 First set of blood cultures drawn by me. rr5 04:20 No provider procedures requiring assistance completed. Patient admitted, IV remains in rr5 place. intact, No redness/swelling at site. Administered Medications: 01:37 Drug: fentaNYL (PF) 25 mcg {Note: rass 0.} Route: IVP; Site: right forearm; rr5 03:00 Follow up: Response: No adverse reaction; Pain is unchanged, physician notified ea 03:00 Drug: NS 0.9% 500 ml Route: IV; Rate: bolus; Site: right forearm; ea 04:00 Follow up: Response: No adverse reaction; IV Status: Completed infusion; IV Intake: rr5 500ml 03:12 Drug: Insulin Regular Human 5 units {Co-Signature: rr5 (Joshua Hopkins RN).} {Note: ea verbal order obtained to give 5 units now and recheck glucose in an hour repeat 5 units if appropriate .} Route: IVP; Site: right forearm; 04:00 Follow up: Response: No adverse reaction; Blood sugar is lowered rr5 03:15 Drug: fentaNYL (PF) 25 mcg {Note: RASS 1 .} Route: IVP; Site: right forearm; ea 04:00 Follow up: Response: No adverse reaction; RASS: Alert and Calm (0) rr5 04:00 Drug: Insulin Drip - (Insulin Regular Human 100 units, NS 0.9% 100 ml) {Co-Signature: ea rr5 (Joshua Hopkins RN).} Route: IV; Rate: calculated rate; Site: right forearm; 06:00 Follow up: Rate change 7 units/hr; BS 485 mg/dl rr5 06:00 Follow up: Response: No adverse reaction; Blood sugar is lowered; IV Status: Infusion rr5 continued upon admission 04:00 Drug: NS 0.9% 1000 ml Route: IV; Rate: 1 bolus; Site: right forearm; rr5 05:00 Follow up: Response: No adverse reaction; IV Status: Completed infusion; IV Intake: rr5 1000ml 04:38 Not Given (Physician Discretion): Calcium Chloride 1 grams IVP once rr5 04:38 Not Given (Physician Discretion): Kayexalate 15 grams PO once rr5 Intake: 04:00 IV: 500ml; Total: 500ml. rr5 05:00 IV: 1000ml; Total: 1500ml. rr5 Outcome: 03:22 Decision to Hospitalize by Provider. [facility] 04:20 Admitted to ER Hold. Please see [facility] for further documentation. rr5 04:20 Condition: stable 04:20 Instructed on the need for admit. 20:14 Patient left the ED. rv Signatures: Dispatcher [employer] EDMS Gisela Garcia RN RN Nabila Hsieh, RN RN rb1 Allyssa Parham RN Pan [place]ks[place] ea, RN RN rv Joshua Hopkins RN RN rr5 Simeon Taylor MD MD [facility] Joshua Hopkins RN rr5
[2019-12-02 03:41] LABS: Urine Blood TRACE (NEG); Urine Glucose 2+ (NEG); Urine Protein NEGATIVE (NEG); Urine pH 5.5 (5.0-7.0)
[2019-12-02] MEDS ORDERED: NA CHLORIDE 0.9% 1,000 ML ONE ×3 (03:45→05:06)
[2019-12-02] MEDS ORDERED: NA CHLORIDE 0.9% 100 ML IV ONE (03:53)
[2019-12-02] MEDS ORDERED: INSULIN -REGULAR HUMAN 100 UNIT in NA CHLORIDE 0.9% 100 ML IV SCH (04:07)
[2019-12-02] MEDS: D5 0.45 NS 1,000 ML IV SCH ×2 (04:07→10:47)
[2019-12-02] MEDS ORDERED: ONDANSETRON 4 MG/2 ML VIAL IV PRN (04:07)
[2019-12-02] MEDS ORDERED: NA CHLORIDE 0.9% 1,000 ML IV ONE ×2 (04:07→04:57)
--- NOTE | 2019-12-02 04:08 | P.HP ---
Certification for Inpatient Patient admitted to: Inpatient With expected LOS: >2 Midnights Patient will require the following post-hospital care: None Practitioner: I am a practitioner with admitting privileges, knowledge of patient current condition, hospital course, and medical plan of care. Services: Services provided to patient in accordance with Admission requirements found in Title 42 Section 412.3 of the Code of Federal Regulations <Dilshad Interiano - Last Filed: 12/02/19 04:01> Patient History Date of Service: 12/02/19 Primary Care Provider: Dr. Uribe Reason for admission: HHS, TEE History of Present Illness: 64-year-old female with history of chronic kidney disease, hypertension, CHF, hyperlipidemia presents emergency department with chief complaint of bilateral lower extremity pain, cramping. Patient reports that feels like snakes are crawling around her legs and buttocks. After further questioning patient reports also that she has been feeling a lot of the least the past few days as well as dehydration. Patient does report that she has been very thirsty drinking a lot and also urinating very frequently. Patient was not previously diagnosed as a diabetic. Patient's labs revealed blood sugar greater than 1200 but anion gap within normal limits and no serum ketones present. Patient had some hyperkalemia with a potassium of 6.2, this was treated in the emergency department. Patient with no EKG changes at this time. Patient also noted to have acute kidney injury superimposed on her chronic kidney disease. ED provider wishes to admit patient for further evaluation and management. When I saw the patient in the emergency department she was awake, alert, oriented x4. Patient complaining of severe, frequent lower extremity cramps and pain. Patient does appear very dehydrated. Will admit patient to the ICU for further evaluation and management. Home medications list reviewed: Yes - Past Medical/Surgical History Diabetic: No -: Chronic renal disease, Nephrology-Dr. Uribe -: Gout -: Obesity -: CHF, Cardiology-Dr. Luque -: Hyperlipidemia -: Anemia -: Anxiety -: Chronic back pain -: Previous neck fusion -: Previous back fusion -: Back surgeries -: Cholecystectomy -: Appendectomy -: Hysterectomy -: Pacemaker/defibrillator Psychosocial/ Personal History: She is currently . Has 2 children. Has 9 grandchildren. She does not work. - Family History Father -: Heart disease Mother -: Heart disease - Social History Smoking Status: Current every day smoker Alcohol use: No CD- Drugs: No Caffeine use: No Place of Residence: Home <Dilshad Interiano - Last Filed: 12/02/19 04:01> Date of Service: 12/02/19 <MurtazaLuizgraciela Cagle - Last Filed: 12/02/19 11:27> Allergies codeine [Codeine] Allergy (Verified 05/27/19 21:04) Itching/Hives/Rash morphine Allergy (Verified 05/27/19 21:04) Itching/Hives/Rash Penicillins Allergy (Verified 05/27/19 21:04) Itching/Hives/Rash Home Medications: ALPRAZolam [Alprazolam] 0.5 mg PO TIDP PRN 12/03/18 Clonidine HCl [Catapres*] 0.2 mg PO TIDP PRN 12/03/18 Gabapentin 300 mg PO TID 12/03/18 Hydrocodone/Acetaminophen [Hydrocodone-Acetamin 7.5-325] 1 tab PO TID 12/03/18 Simvastatin 40 mg PO BEDTIME 12/03/18 nadoloL [Nadolol] 20 mg PO DAILY 12/03/18 Furosemide [Lasix] 40 mg PO BID #30 tablet 12/04/18 Allopurinol 1 tab PO DAILY 05/27/19 Review of Systems 10-point ROS is otherwise unremarkable Musculoskeletal: Leg Pain, As per HPI <Dilshad Interiano - Last Filed: 12/02/19 04:01> Physical Examination - Physical Exam General: Alert, In no apparent distress, Oriented x3 HEENT: Atraumatic, Normocephalic, PERRLA, Other (Mucous membranes very dry) Neck: Supple Respiratory: Clear to auscultation bilaterally, Normal air movement Cardiovascular: No edema, Normal pulses, Regular rate/rhythm, Normal S1 S2 Capillary refill: <2 Seconds Gastrointestinal: Normal bowel sounds, Soft and benign, No tenderness, No masses, No rebound Musculoskeletal: No contractures, No erythema, No tenderness Integumentary: No significant lesion, No tenderness/swelling, No erythema, No warmth Neurological: Normal speech, Normal strength at 5/5 x4 extr, Normal tone, Sensation intact - Studies Laboratory Data (last 24 hrs) 12/02/19 03:05: Glucose 1137 H* 12/02/19 01:35: Lipase 151 12/02/19 01:35: Magnesium 2.7 H D 12/02/19 01:35: PT 12.1, INR 1.03, APTT 32.8 12/02/19 01:35: Sodium 120 L, Potassium 6.2 H*, BUN 56 H, Creatinine 2.94 H, Glucose 1215 H*, Total Bilirubin 0.3, AST 9 L, ALT 20, Alkaline Phosphatase 288 H 12/02/19 01:35: WBC 10.5, Hgb 11.2 L, Hct 36.2, Plt Count 337 <Dilshad Interiano - Last Filed: 12/02/19 04:01> - Studies Laboratory Data (last 24 hrs) 12/02/19 03:05: Glucose 1137 H* 12/02/19 01:35: Lipase 151 12/02/19 01:35: Magnesium 2.7 H D 12/02/19 01:35: PT 12.1, INR 1.03, APTT 32.8 12/02/19 01:35: Sodium 120 L, Potassium 6.2 H*, BUN 56 H, Creatinine 2.94 H, Glucose 1215 H*, Total Bilirubin 0.3, AST 9 L, ALT 20, Alkaline Phosphatase 288 H 12/02/19 01:35: WBC 10.5, Hgb 11.2 L, Hct 36.2, Plt Count 337 <Luiz Hauser - Last Filed: 12/02/19 11:27> Assessment and Plan - Plan Assessment Hyperosmolar hyperglycemic state Acute kidney injury with underlying chronic kidney disease Hyponatremia Hyperkalemia Chronic diastolic congestive heart failure Hypertension Hyperlipidemia Plan Hyperosmolar hyperglycemic state: Continue with aggression fluid resuscitation at this time. Will have to monitor patient closely as she does have a history of chronic diastolic congestive heart failure. Mucous membranes very dry at this time. No signs overload. Will continue with hydration. Since blood sugars. And 1200 have also initiated IV insulin drip. Will continue with q.1 hr Accu-Cheks and q.4 hr BMP. Nephrology has also been consulted due to patient's acute kidney injury and electrolyte imbalances. Appreciate further input from nephrology. DVT prophylaxis. Heparin 5000 units subcutaneous twice daily. Acute kidney injury with underlying chronic kidney disease: Likely prerenal. Nephrology has been consulted. Continue with aggressive rehydration at this time. Appreciate further input from nephrology. Hyponatremia: Likely related dehydration. Continue with aggressive fluid resuscitation to treat HHS. This will likely improve with hydration. Will continue to monitor closely in the q.4 hr BMP. Hyperkalemia: This was treated in the emergency department. Will continue to monitor potassium levels closely and treat as needed. Chronic diastolic congestive heart failure: Will continue to monitor patient's volume status closely as we are continue with aggressive fluid resuscitation at this time. Will consult cardiology as necessary. Hypertension: Will hold blood pressure medications at this time as patient has acute kidney injury. Appreciate further input from nephrology. Will get blood pressure medications p.r.n.. Hyperlipidemia: Obtain and continue patient's home medications. Discharge Plan: Home Plan to discharge in: Greater than 2 days - Advance Directives Does patient have a Living Will: No Does patient have a Durable POA for Healthcare: No - Code Status/Comfort Care Code Status Assessed: Yes (Patient is full code) Critical Care: No Time Spent Managing Pts Care (In Minutes): 55 <Dilshad Interiano - Last Filed: 12/02/19 04:01> Physician Review Additional Text: Patient seen and examined Findings were discussed Agree with the assessment and plan as documented by the ARACELI Hyperglycemia coming down after insulin drip Continue aggressive hydration Monitor and get up will stop insulin drip and start on basal as well as aggressive sliding scale Complains of cramps Will start on Flexeril Monitor electrolytes and replace accordingly Discusses the patient regarding the condition and management <Luiz Hauser - Last Filed: 12/02/19 11:27>
[2019-12-02 05:46] LABS: Potassium 4.5 mmol/L (3.5-5.1)
[2019-12-02] MEDS: NACHLORIDE 0.45% 1,000 ML IV SCH ×5 (06:00→21:36)
[2019-12-02] MEDS ORDERED: NACHLORIDE 0.45% 1,000 ML IV ONE ×2 (07:21→12:23)
[2019-12-02] MEDS: HEPARIN 5000 UNIT/ML 1 ML VIAL SQ SCH ×2 (09:00→21:38)
[2019-12-02] MEDS: CYCLOBENZAPRINE 10 MG TAB PO SCH ×3 (09:50→21:38)
[2019-12-02] MEDS ORDERED: HEPARIN 5000 UNIT/ML 1 ML VIAL ONE (10:07)
[2019-12-02] MEDS ORDERED: CYCLOBENZAPRINE 10 MG TAB ONE ×2 (10:07→15:03)
[2019-12-02] MEDS: FENTANYL CITR 100 MCG/2 ML IV PRN (10:09)
--- NOTE | 2019-12-02 10:18 | RAD REPORT ---
EXAM DESCRIPTION: USExtrem Venous W Compress Bil12/02/2019 3:29 am CLINICAL HISTORY: Leg pain COMPARISON: none FINDINGS: The common femoral, superficial femoral, popliteal and posterior tibial veins bilaterally and demonstrate augmentation. The patient refused to have the veins compressed. This does limit evaluation somewhat. Doppler demonstrates good flow. IMPRESSION: No evidence of deep venous thrombosis involving either lower extremity.
--- NOTE | 2019-12-02 10:39 | RAD REPORT ---
EXAM DESCRIPTION: Rama Single View12/02/2019 3:37 am CLINICAL HISTORY: cough COMPARISON: May 2019 FINDINGS: The lungs appear clear of acute infiltrate. The heart is mildly to moderately enlarged. P acemaker leads in place IMPRESSION: No acute abnormalities displayed
[2019-12-02] MEDS ORDERED: D50W 25 GM/50 ML SYRINGE/VIAL IV PRN ×2 (11:18)
[2019-12-02] MEDS ORDERED: GLUCAGON 1 MG/VIAL IM PRN ×2 (11:18)
[2019-12-02] MEDS: INSULIN GLARGINE 100 UNITS/ML SQ SCH ×2 (11:19→21:39)
[2019-12-02] MEDS: INSULIN -REGULAR HUMAN 50 UNIT/0.5 ML ML SQ SCH ×3 (11:30→21:39)
[2019-12-02] MEDS ORDERED: INSULIN GLARGINE 100 UNITS/ML SQ ONE (12:13)
[2019-12-02] MEDS ORDERED: NA CHLORIDE 0.9% 0 ML ONE (12:14)
--- NOTE | 2019-12-02 13:10 | CON ---
History Of Present Illness: The patient seen at [facility] in the emergency room. She is o n hold due to stopping on the floor, other certain patients being currently held in the emergency meghann m for monitoring. The patient is clinically looking much improved. She is alert and awake. She pham s have a mask on, but says she has been breathing comfortably. Does not have any respiratory symptom s. She presented to the hospital with significant change in condition with having cramps and pain in the lower extremities. Those pains have improved. The patient has had an issue with the backache f or a long time for about 20 years. She does take Walsh for that. Says that she is allergic to morph ine and codeine, but is able to tolerate Walsh. She is pretty good about her medications and has bee n careful with her medication intake. She denies any infections. She denies having any fever. She denies having any change in condition with her eating habits. When she presented she had sugars runn ing in the over 1000 range. Her HbA1c which in the past had been in the low 6 range has gone up to 1 0. The patient has seen Dr. Uribe for the past 5 years in clinic and has been monitoring with him. She does have some chronic kidney disease with a creatinine, she thinks running close to 1.5 to 2 r mara. The patient is feeling better after volume repletion. She still got dry skin. She does not h ave any edema. She is off blood pressure medications appropriately held by the hospitalist and her b lood pressure has been running with systolic in the 90 to 110 range. Family History: On evaluation of her family history at this point noncontributory. Allergies: CODEINE, MORPHINE, PENICILLIN. Medications: Reviewed. The patient was on insulin drip, has been stopped currently, and patient is going to be given insulin and monitored. The patient is not been taking any NSAIDs. Laboratory Data: Reviewed. The patient has a WBC count of 10.5, hemoglobin 11.2, hematocrit of 36.2 , platelet count of 337. Chemistries show last bicarb of about 22, before that 27. Her creatinine h as improved from 2.94 to 2.69. Her BUN is 54 from 56 earlier. The patient has further lab work pend ing. Glucose has been still running in the 300-400 range, but recently has come down to 201 at 10 a. m. this morning. Physical Examination: General: The patient is alert, awake, talking in full sentences. Her leg cramps are significantly i mproved. Vital Signs: Stable. Her blood pressure is running systolic 90 to 110 range, last blood pressure is 103/75, O2 sats are 97% on room air. She is afebrile. Pulse rate is about 60 to 65 and regular. Lungs: Clear to auscultation. Abdomen: Soft. Extremities: Reveal no edema. Skin: Still dry. Mouth: Mucosa still dry. Assessment/plan: The patient with volume depletion, hyperglycemia, does not have an anion gap at thi s point, bicarb is in reasonable range. The patient is alert, awake, tolerating IV fluids and insuli n well. Continue with the current management. Repeat a BMP at least tomorrow morning. Continue IV fluids with at least close to 100 cc an hour. At this point, patient is also eating and drinking bet ter. Her volume intake improves. May be able to cut back on IV fluids. Okay to switch from insulin drip to insulin with checking fingerstick glucose and monitoring. The patient was going to need jacque ck and close monitoring after discharge from hospital to manage her diabetes which has significantly worsen recently. The patient seems to had history of diabetes, but was reasonably controlled. Do no t seem to find any trigger currently. The patient has not been eating differently and denies any his tory of recent infections. Does not seem to be in any pain currently, but did have some discomfort i n the lower extremities posture related to dehydration. At this point, appropriately being rehydrate d. Acute renal failure improving. Diabetes improved, controlled. Continue to manage hyperglycemia with close followup with Dr. Uribe once patient discharged from the hospital. Appreciate consultation. /GOLDIE Voice ID: [id number] Report ID: [id number]
[2019-12-02 13:29] LABS: Potassium 4.5 mmol/L (3.5-5.1)
--- NOTE | 2019-12-02 14:47 | RAD REPORT ---
EXAM DESCRIPTION: CT - Abdomen Pelvis Wo Contrast - 12/02/2019 5:06 am CLINICAL HISTORY: ABD PAIN COMPARISON: 11/23/2018. TECHNIQUE: CT ABDOMEN PELVIS WITHOUT IV CONTRAST on 12/02/2019 1:06 AM CDT This exam was performed according to our departmental dose-optimization program, which includes autom ated exposure control, adjustment of the mA and/or kV according to patient size and/or use of iterati ve reconstruction technique. FINDINGS: Lower lungs are clear. Abdomen: The liver is normal in appearance. There is no biliary dilatation. Cholecystectomy was perfo rmed. The pancreas and spleen are normal in appearance. Adrenal glands are normal. Kidneys are mildly atrophic. Abdominal aorta is densely calcified without aneurysm. There is an IVC filter in the lower IVC. There is no free air. There is no retroperitoneal adenopathy. Pelvis: There is large amount stool throughout the colon. Urinary bladder is unremarkable. There is n o free fluid. Uterus is not clearly seen. Appendix is not clearly seen. Skeleton: There are no acute osseous findings. No suspicious bony lesions. Extensive lumbar fusion wa s performed. IMPRESSION: Constipation. No definite acute inflammatory process. Electronically signed by: Mihai Cochran MD 12/02/2019 2:47 AM CDT Due to temporary technical issues with the PACS/Fluency reporting system, reports are being signed by the in house radiologist without review as a courtesy to ensure prompt reporting. The interpreting r adiologist is fully responsible for the content of the report.
[2019-12-03] MEDS: LOSARTAN POTASSIUM 50 MG TABLET PO SCH ×2 (05:00→08:08)
[2019-12-03] MEDS: HYDRALAZINE HCL 20 MG/ML VIAL IV PRN ×2 (05:11→16:07)
[2019-12-03] MEDS: NACHLORIDE 0.45% 1,000 ML IV SCH ×3 (05:18→23:49)
[2019-12-03] MEDS: SPIRONOLACTONE 25 MG TABLET PO SCH ×2 (06:20→07:52)
[2019-12-03 06:31] LABS: Absolute Lymphocytes (CBC) 3.2 K/uL (0.7-4.9); Basophils % 0.4 % (0-1.3); Hematocrit 35.7 % (36.0-45.0); Lymphocytes % 29.9 % (15.3-44.8); MPV 10.1 fL (7.6-11.3); RBC Red Blood Cell Count 4.15 M/uL (3.86-4.86)
[2019-12-03 06:35] LABS: Magnesium 2.2 mg/dL (1.8-2.4); Phosphorus 2.9 mg/dL (2.5-4.9); Potassium 4.3 mmol/L (3.5-5.1)
[2019-12-03] MEDS: carvediloL 6.25 MG TAB PO SCH ×2 (08:07→16:06)
[2019-12-03] MEDS: INSULIN -REGULAR HUMAN 50 UNIT/0.5 ML ML SQ SCH ×4 (08:08→21:17)
[2019-12-03] MEDS: INSULIN GLARGINE 100 UNITS/ML SQ SCH ×2 (08:09→21:17)
[2019-12-03] MEDS: HEPARIN 5000 UNIT/ML 1 ML VIAL SQ SCH ×2 (08:09→20:57)
[2019-12-03] MEDS: CYCLOBENZAPRINE 10 MG TAB PO SCH ×3 (09:00→21:00)
--- NOTE | 2019-12-03 09:58 | P.PN ---
Subjective Date of Service: 12/03/19 Primary Care Provider: Dr. Uribe Chief Complaint: HHS, TEE Subjective: No new changes, Other (Denies any chest pain, shortness of breath no fever or chills) Review of Systems 10-point ROS is otherwise unremarkable Physical Examination - Vital Signs Temperature: 97.1 F Blood Pressure: 208/90 Pulse: 90 Respirations: 18 Pulse Ox (%): 97 - Physical Exam General: Alert, In no apparent distress, Obese HEENT: Atraumatic, Normocephalic Neck: Supple Respiratory: Clear to auscultation bilaterally Cardiovascular: Normal pulses, Regular rate/rhythm Capillary refill: <2 Seconds Gastrointestinal: Soft and benign, W/out hepatosplenomegaly Musculoskeletal: No clubbing, No swelling Integumentary: No rashes, No breakdown Neurological: Normal speech, Normal strength at 5/5 x4 extr Lymphatics: No axilla or inguinal lymphadenopathy Assessment & Plan Physician Review Additional Text: Hyperosmolar hyperglycemic state Acute kidney injury with underlying chronic kidney disease Hyponatremia Hyperkalemia Chronic diastolic congestive heart failure Hypertension Hyperlipidemia Plan Hyperosmolar hyperglycemic state: Resolved Continue with hydration The patient was on insulin drip which was turned off Start on sliding scale and basal insulin Acute kidney injury with underlying chronic kidney disease: Likely prerenal. Nephrology consulted. Appreciate further input from nephrology. Hyponatremia: Likely related dehydration. Continue with aggressive fluid resuscitation to treat HHS. improve with hydration. Will continue to monitor closely in the q.4 hr BMP. Hyperkalemia: Will continue to monitor potassium levels closely and treat as needed. Chronic diastolic congestive heart failure: Will continue to monitor patient's volume status Continue home medications Hypertension: get blood pressure medications p.r.n.. Hyperlipidemia: continue patient's home medications and titrate Diabetes A1c >13 Discussed in detail regarding the diabetes care and need for monitoring closely . Time Spent Managing Pts Care (In Minutes): 42
[2019-12-03] MEDS ORDERED: D50W 25 GM/50 ML SYRINGE/VIAL IV PRN (10:20)
[2019-12-03] MEDS ORDERED: GLUCAGON 1 MG/VIAL IM PRN (10:20)
[2019-12-03] MEDS: GABAPENTIN 300 MG CAP PO SCH ×3 (11:59→20:59)
[2019-12-03] MEDS: HYDROCODONE/APAP 7.5/325 MG TAB PO SCH ×3 (12:03→21:16)
[2019-12-03] MEDS: ALPRAZOLAM 0.5 MG TABLET PO SCH ×3 (14:00→21:00)
[2019-12-03 14:17] LABS: C.diff Antigen/Toxin Ag neg : Tox neg (NEG : NEG)
[2019-12-03 15:02] VITALS: BMI 40.2
[2019-12-03] MEDS ORDERED: HOME MED 1 EA UNK (Simvastatin [Simvastatin] 40 MG) PO SCH (21:00)
[2019-12-03] MEDS ORDERED: ATORVASTATIN 20 MG TAB PO SCH (21:00)
[2019-12-04] MEDS: FENTANYL CITR 100 MCG/2 ML IV PRN (03:47)
[2019-12-04 05:45] LABS: Absolute Lymphocytes (CBC) 3.5 K/uL (0.7-4.9); Basophils % 0.7 % (0-1.3); Hematocrit 37.2 % (36.0-45.0); Lymphocytes % 33.4 % (15.3-44.8); MPV 9.6 fL (7.6-11.3)
[2019-12-04 05:53] LABS: Magnesium 2.1 mg/dL (1.8-2.4); Phosphorus 2.1 mg/dL (2.5-4.9)
[2019-12-04 05:55] LABS: Potassium 4.1 mmol/L (3.5-5.1)
[2019-12-04] MEDS: HYDRALAZINE HCL 20 MG/ML VIAL IV PRN (06:16)
[2019-12-04 07:13] LABS: Platelet Estimate ADEQ; Urine White Blood Cell Casts OK
[2019-12-04 07:14] LABS: Anisocytosis 1+; Blood Morphology Comment NOTED (NOT SEEN)
[2019-12-04] MEDS: INSULIN -REGULAR HUMAN 50 UNIT/0.5 ML ML SQ SCH ×2 (08:25→12:26)
[2019-12-04] MEDS: INSULIN GLARGINE 100 UNITS/ML SQ SCH (08:25)
[2019-12-04] MEDS: ALPRAZOLAM 0.5 MG TABLET PO SCH (08:26)
[2019-12-04] MEDS: carvediloL 6.25 MG TAB PO SCH (08:26)
[2019-12-04] MEDS: SPIRONOLACTONE 25 MG TABLET PO SCH (08:26)
[2019-12-04] MEDS: HYDROCODONE/APAP 7.5/325 MG TAB PO SCH ×2 (08:26→12:25)
[2019-12-04] MEDS: POTASS/SODIUM PHOSPHATE 1 PKT POWD.PACK PO SCH ×3 (08:26→10:20)
[2019-12-04] MEDS: LOSARTAN POTASSIUM 50 MG TABLET PO SCH (08:27)
[2019-12-04] MEDS: HEPARIN 5000 UNIT/ML 1 ML VIAL SQ SCH (08:27)
[2019-12-04] MEDS: CYCLOBENZAPRINE 10 MG TAB PO SCH (08:27)
[2019-12-04] MEDS: GABAPENTIN 300 MG CAP PO SCH ×2 (08:27→12:25)
[2019-12-04 09:18] VITALS: TEMP 97.1
[2019-12-04] MEDS: NACHLORIDE 0.45% 1,000 ML IV SCH (10:28)
[2019-12-04 10:39] VITALS: O2SAT 96
--- NOTE | 2019-12-04 11:22 | P.DS ---
Admission Date: 12/02/19 Discharge Date: 12/04/19 Primary Care Provider: Dr. Uribe Disposition: ROUTINE DISCHARGE Discharge Condition: GOOD Reason for Admission: HHS, TEE Consultations: Nephrology Procedures: Problem List TEE on CKD Hyponatremia secondary to dehydration Hyperkalemia Chronic diastolic CHF HTN HLD DM2: A1c>13 CT ABDOMEN PELVIS WITHOUT IV CONTRAST on 12/02/2019 1:06 AM CDT This exam was performed according to our departmental dose-optimization program, which includes automated exposure control, adjustment of the mA and/or kV according to patient size and/or use of iterative reconstruction technique. FINDINGS: Lower lungs are clear. Abdomen: The liver is normal in appearance. There is no biliary dilatation. Cholecystectomy was performed. The pancreas and spleen are normal in appearance. Adrenal glands are normal. Kidneys are mildly atrophic. Abdominal aorta is densely calcified without aneurysm. There is an IVC filter in the lower IVC. There is no free air. There is no retroperitoneal adenopathy. Pelvis: There is large amount stool throughout the colon. Urinary bladder is unremarkable. There is no free fluid. Uterus is not clearly seen. Appendix is not clearly seen. Skeleton: There are no acute osseous findings. No suspicious bony lesions. Extensive lumbar fusion was performed. IMPRESSION: Constipation. No definite acute inflammatory process. Brief History of Present Illness: 64-year-old female with history of chronic kidney disease, hypertension, CHF, hyperlipidemia presents emergency department with bilateral lower extremity pain, cramping. Patient reports that feels like snakes are crawling around her legs and buttocks. After further questioning patient reports also that she has been feeling dehydrated. Patient does report that she has been very thirsty drinking a lot and also urinating very frequently. Patient was not previously diagnosed as a diabetic. Patient's labs revealed blood sugar greater than 1200 but anion gap within normal limits and no serum ketones present. Patient had some hyperkalemia with a potassium of 6.2, this was treated in the emergency department. Patient with no EKG changes at this time. Patient also noted to have acute kidney injury superimposed on her chronic kidney disease. Hospital Course: Patient received aggressive fluid resuscitation, IV insulin drip and electrolytes monitored and repleted as necessary. Nephrology was consulted who agreed with treatment and TEE likely prerenal in origin. Patient continued to improve and was transitioned to basal insulin with improvement in her laboratory values. On day of discharge she felt much better, reportedly back to her "baseline", and was ready to be discharged home. She received diabetic education and was discharged home on long-acting insulin, to f/u closely with her PCP. Vital Signs/Physical Exam: Temp Pulse Resp BP Pulse Ox 97.1 F 104 H 19 142/68 H 96 12/04/19 08:00 12/04/19 08:26 12/04/19 09:26 12/04/19 08:26 12/04/19 09:26 General: Alert, In no apparent distress, Oriented x3 HEENT: Mucous membr. moist/pink Neck: Supple, JVD not distended Respiratory: Clear to auscultation bilaterally, Normal air movement Cardiovascular: Regular rate/rhythm, Normal S1 S2 Gastrointestinal: Normal bowel sounds, Soft and benign, Non-distended Musculoskeletal: No erythema, No tenderness Integumentary: No rashes, No breakdown Neurological: Normal speech, Normal affect Laboratory Data at Discharge: WBC 10.6 K/uL (4.3-10.9) 12/04/19 05:26 Hgb 12.1 g/dL (12.0-15.0) 12/04/19 05:26 Hct 37.2 % (36.0-45.0) 12/04/19 05:26 Plt Count 309 K/uL (152-406) 12/04/19 05:26 PT 12.1 SECONDS (9.5-12.5) 12/02/19 01:35 INR 1.03 12/02/19 01:35 APTT 32.8 SECONDS (24.3-36.9) 12/02/19 01:35 Sodium 139 mmol/L (136-145) 12/04/19 05:26 Potassium 4.1 mmol/L (3.5-5.1) 12/04/19 05:26 BUN 26 mg/dL (7-18) H 12/04/19 05:26 Creatinine 1.32 mg/dL (0.55-1.3) H 12/04/19 05:26 Glucose 256 mg/dL (74-106) H 12/04/19 05:26 Phosphorus 2.1 mg/dL (2.5-4.9) L 12/04/19 05:26 Magnesium 2.1 mg/dL (1.8-2.4) 12/04/19 05:26 Total Bilirubin 0.3 mg/dL (0.2-1.0) 12/02/19 01:35 AST 9 U/L (15-37) L 12/02/19 01:35 ALT 20 U/L (12-78) 12/02/19 01:35 Alkaline Phosphatase 288 U/L (45-117) H 12/02/19 01:35 Triglycerides 344 mg/dL (<150) H 12/03/19 05:42 Cholesterol 170 mg/dL (<200) 12/03/19 05:42 HDL Cholesterol 31 mg/dL (40-60) L 12/03/19 05:42 Cholesterol/HDL Ratio 5.48 12/03/19 05:42 Lipase 151 U/L (73-393) 12/02/19 01:35 Home Medications: ALPRAZolam [Alprazolam] 0.5 mg PO TID 12/03/18 Clonidine HCl [Catapres*] 0.2 mg PO DAILY 12/03/18 Gabapentin 300 mg PO QID 12/03/18 Hydrocodone/Acetaminophen [Hydrocodone-Acetamin 7.5-325] 1 tab PO QID 12/03/18 Simvastatin 40 mg PO BEDTIME 12/03/18 Furosemide [Lasix] 80 mg PO BID 12/02/19 Losartan Potassium 1 tab PO DAILY 12/02/19 Spironolactone 50 mg PO DAILY 12/02/19 carvediloL [Carvedilol] 1 tab PO BID 12/02/19 Insulin Glargine Human [Lantus*] 20 units SQ BID #1 vial 12/04/19 New Medications: Insulin Glargine Human [Lantus*] 20 units SQ BID #1 vial Patient Discharge Instructions: follow up with PCP within 1 week Diet: ADA Activity: Ad brian Time spent managing pt's care (in minutes): 45
[2019-12-04 14:02] VITALS: BP 150/90
== END 2019-12-04 13:57 | disposition home or self-care (01) | DRG 682 ==
LOC: ER 00:35 → ERHOLD 03:51 → 2ND 20:09
PROVIDERS: ADMIT Family Medicine; ATTEND Hospitalist
DX: N17.9 Acute kidney failure, unspecified (principal); E11.00 Type 2 diabetes mellitus with hyperosmolarity without nonketotic hyperglycemic-hyperosmolar coma (NKHHC); I13.0 Hypertensive heart and chronic kidney disease with heart failure and stage 1 through stage 4 chronic kidney disease, or unspecified chronic kidney disease; I50.32 Chronic diastolic (congestive) heart failure; E87.1 Hypo-osmolality and hyponatremia; E11.22 Type 2 diabetes mellitus with diabetic chronic kidney disease; F17.210 Nicotine dependence, cigarettes, uncomplicated; N18.9 Chronic kidney disease, unspecified; E86.0 Dehydration; E87.5 Hyperkalemia; E78.5 Hyperlipidemia, unspecified; Z11.59 Encounter for screening for other viral diseases
CPT/HCPCS: 36415; 71045; 74176; 80048; 80061; 80076; 81003; 82010; 82550; 82805; 82947; 83036; 83690; 83735; 83930; 84100; 84484; 85025; 85610; 85730; 87040; 87077; 87086; 87088; 87186; 87324; 87449; 93005; 93970; 96361; 96365; 96366; 96375; 99285; J0360; J1644; J1815; J3010; J7030; J7040; U0002

== ENCOUNTER 2020-11-01 13:26 | Emergency (ER) | payer OTHER ==
--- OUTSIDE RECORDS SUMMARY | 2020-11-01 13:29 | XMS REPORT | Continuity of Care Document ---
:1955 Author Organization [facility] t Address [address] [place] [address] Dr. Bolivar[address] [place] [id number] Care Team Providers Name Role Phone Constance Uribe DO Primary Care Physician Cathy JORDAN Attending Clinician Unavailable Susana FENTON Attending Clinician Natalia GHOTRA Attending Clinician Unavailable Ken JORDAN Attending Clinician Unavailable Mao Vega MD Attending Clinician Joselito Attending Clinician Unavailable LAVON Attending Clinician Unavailable DADA Attending Clinician Unavailable [place] Admitting Clinician Unavailable DADA Admitting Clinician Unavailable Payers Payer Name Policy Type Policy Effective Date Expiration Date Sour ce Number [id number] 2020 [place] MEDICAREHUMANA 00:00:00 [employer] MEDICARE PPO/PFFS/ERS [id number] 2020 -PresentPPO Problems Condition Condition Condition Status Onset Resolution Last Treating Co mments Source Name Details Category Date Date Treatment Clinician Date Infection Infection Disease Active Jose ston of of [facility] pacemaker pacemaker 00:00: st pocket pocket 00 Arrhythmia Arrhythmia Disease Active [place] 2-16 [facility] 00:00: st 00 Allergies, Adverse Reactions, Alerts Allergy Allergy Status Severity Reaction(s) Onset Inactive Treating Comm ents Source Name Type Date Date Clinician Codeine Propensi Active Itching, 2019 Pt states [facility] ty to Other (See 12-01 she Method i adverse Comments) 00:00: itches st reaction 00 s to drug Morphine Propensi Active Other (See Pt itches [place] ty to Comments) 12-01 [facility] adverse 00:00: st reaction 00 s to drug Penicill Propensi Active Other (See Pt states [place] in V ty to Comments) 12-01 she gets Metho di adverse 00:00: welps all st reaction 00 over her s to abdomen drug Trazodon Propensi Active Other (See unknown [place] e ty to Comments) 8 [facility] adverse 00:00: st reaction 00 s to drug Family History Family Member Diagnosis Comments Start Date Stop Date Source Natural father Heart attack Jason Negrete Natural mother Heart failure Gomez [facility] Social History Social Habit Start Date Stop Date Quantity Comments Source History of tobacco Cigarette Smoker [place] use [facility] Cigarettes smoked 2019-11-22 2019-11-22 [place] current (pack per 00:00:00 00:00:00 [facility] ) - Reported Cigarette 2019-11-22 2019-11-22 [place] pack-years 00:00:00 00:00:00 [facility] Tobacco use and 2019-11-22 2019-11-22 Never used [place] exposure 00:00:00 00:00:00 [facility] Alcohol intake 2019-11-22 2019-11-22 Current drinker [place] 00:00:00 00:00:00 of alcohol [facility]al (finding) Sex [birth year] [place] 00:00:00 00:00:00 [facility] Smoking Status Start Date Stop Date Source Former smoker 2019-11-22 00:00:00 2019-11-22 00:00:00 Jason Negrete Medications Ordered Filled Start Stop Current Ordering Indication Dosage Frequency Signature Comments Components Source Medication Medication Date Date Medication? Clinician (SIG) Name Name insulin Yes 6U Inject 6 [place] lispro 5-27 Units [facility] (HUMALOG 09:27: under the st U-100 44 skin. INSULIN SUBQ) gabapentin Yes 2-3 tabs Jose ston (Neurontin) 11-21 po tid Method i 300 mg 00:00: st capsule 00 carvediloL 2020- No 6.25mg Q.5D Take 6.25 Gomez (COREG) 5-07 05-07 mg by [facility] 6.25 MG 00:00: 23:[address] tablet 00 :00 (two) times a day. clonIDINE 2020- No .2mg Q.45229707 Take 0.2 [place] HCl 5-07 05-07 [id number] mg by [facility] (CATAPRES) 00:00: 23:[address] 0.2 MG 00 :00 (three) tablet times a day. losartan Yes 25mg QD Take 25 mg Jose ston (COZAAR) 25 4-30 by mouth Meth jose rafael MG tablet 00:00: daily. st 00 ALPRAZolam Yes Q.07917385 3 (three) [place] (XANAX) 0.5 9-27 [id number] times a [facility] MG tablet 00:00: 3D day as st 00 needed. furosemide Yes 1{tbl} Q.5D Take 1 Jose ston (LASIX) 40 9-05 tablet by Meth jose rafael mg tablet 00:00: mouth 2 st 00 (two) times a day. gabapentin No 300mg Q.[id number] 300 mg 3 [place] (NEURONTIN) 8-24 02-23 [id number] (three) [facility] 300 mg 00:00: 00:[address] capsule 00 :00 day. HYDROcodone Yes 1{tbl} Q.98786702 Take 1 [place] -acetaminop 8-09 [id number] tablet by Methodi hen (NORCO) 00:00: 3D mouth 3 st 7.5-325 mg 00 (three) per tablet times a day. simvastatin Yes 1{tbl} QD Take 1 [place] (ZOCOR) 40 8-11 tablet by Meth jose rafael MG tablet 00:00: mouth st 00 daily. spironolact No 50mg QD Take 50 mg [place] one 07-11 05-07 by mouth [facility] (ALDACTONE) 00:00: 23:[address] 50 MG 00 :00 tablet Vital Signs Vital Name Observation Time Observation Value Comments Source Systolic blood 2020-09-05 09:45:00 179 mm[Hg] Boni wheeler Pent[facility]al pressure Diastolic blood 2020-09-05 09:45:00 74 mm[Hg] Rena whitman [facility]al pressure Heart rate 2020-09-05 09:45:00 63 /min Jason Negrete Respiratory rate 2020-09-05 09:45:00 18 /min Lina Negrete Oxygen saturation in 2020-09-05 09:45:00 99 /min Jason Negrete Arterial blood by Pulse oximetry Body temperature 2020-09-05 07:42:00 36.56 Mari Lina Negrete Body height 2020-09-05 07:42:00 152.4 cm Jason Negrete Body weight 2020-09-05 07:42:00 101.152 kg Jason Negrete BMI 2020-09-05 07:42:00 43.55 kg/m2 Jason Negrete Procedures Procedure Date / Time Performed Performing Clinician Sourc e CT POST MYELOGRAM LUMBAR 2020-09-05 09:52:32 Saul Arenas Jose ston [facility] CT POST MYELOGRAM 2020-09-05 09:23:16 SusanaJustinsheila [facility] THORACIC CT POST MYELOGRAM 2020-09-05 09:16:53 SusanaSaul [facility] CERVICAL IR MYELOGRAM 2+REG INCL 2020-09-05 08:56:13 SusanaJustinMichelle Negrete INJ W S&I EMG 2020-08-15 00:00:00 Saul Arenas Meth odist MRI BRACHIAL PLEXUS WO 2020-07-04 09:03:00 Susana Saulsheila [place] [facility] (UPPER EXT) XR CHEST 2 VW 2020-07-04 07:10:00 Saul Arenas Meth odist EMG 2019-11-24 13:31:59 Wilfred Vega Meth odist MRI CERVICAL SPINE WO 2019-11-07 09:51:27 Wilfred Vega CONTRAST X RAYS NO CHARGE MRI 2019-11-07 08:08:10 Wilfred Vega X RAYS NO CHARGE MRI 2019-11-07 08:07:52 Wilfred Vega Plan of Care Planned Activity Planned Date Details Comments Source Future Scheduled 2020-11-10 INFLUENZA VACCINE Boni Negrete Test 00:00:00 [code = INFLUENZA VACCINE] Future Scheduled 2003-09-16 BREAST CANCER [facility] Test 00:00:00 SCREENING [code = BREAST CANCER SCREENING] Future Scheduled 2003-09-16 COLONOSCOPY SCREENING [place] [facility] Test 00:00:00 [code = COLONOSCOPY SCREENING] Future Scheduled 2003-09-16 SHINGLES VACCINES (#1) [place] [facility] Test 00:00:00 [code = SHINGLES VACCINES (#1)] Future Scheduled 1971-09-16 Hepatitis C screening [place] [facility] Test 00:00:00 (procedure) [code = 917042032] Future Scheduled 1965 COVID-19 VACCINE (1) Jose ston [facility] Test 00:00:00 [code = COVID-19 VACCINE (1)] Future Scheduled 1963-09-16 DIABETES: RETINAL EYE [place] [facility] Test 00:00:00 EXAM [code = DIABETES: RETINAL EYE EXAM] Future Scheduled 1963-09-16 DIABETIC FOOT EXAM [place] [facility] Test 00:00:00 [code = DIABETIC FOOT EXAM] Future Scheduled 1963-09-16 URINE MICROALBUMIN [place] [facility] Test 00:00:00 [code = URINE MICROALBUMIN] Future Scheduled 1959-09-16 65+ PNEUMOCOCCAL [facility] Test 00:00:00 VACCINE (1 of 4 - PCV13) [code = 65+ PNEUMOCOCCAL VACCINE (1 of 4 - PCV13)] Encounters Start End Encounter Admission Attending Care Care Encounter Source Date/Time Date/Time Type Type Clinicians Facility Department ID 2020-09-05 2020-09-05 Outpatient [facility] [id number] [place] 00:00:00 00:00:[address] 2020-09-05 2020-09-05 Outpatient [facility] [id number] [place] 00:00:00 00:00:[address] 2020-09-05 2020-09-05 Outpatient [facility] [id number] [place] 00:00:00 00:00:[address] 2020-09-05 2020-09-05 Outpatient [facility] [id number] [place] 00:00:00 00:00:[address] 2020-08-14 2020-08-14 Outpatient [facility] [id number] [place] 00:00:00 00:00:[address] 2020-07-04 2020-07-04 Outpatient [facility] [id number] [place] 00:00:00 00:00:[address] 2020-07-04 2020-07-04 Outpatient [facility] [id number] [place] 00:00:00 00:00:[address] 2020-06-04 2020-06-04 Outpatient [facility] [id number] [place] 00:00:00 00:00:[address] 2019-11-24 2019-11-24 Outpatient MARLENE [facility] [id number] [place] 00:00:00 00:00:00 WILFRED [address] 2019-11-22 2019-11-22 Outpatient [facility] [id number] [place] 00:00:00 00:00:00 WILFRED [address] 2019-11-07 2019-11-07 Outpatient [facility] [id number] [place] 00:00:00 00:00:00 WILFRED [address] 2019-11-07 2019-11-07 Outpatient [facility] [id number] [place] 00:00:00 00:00:00 WILFRED [address] 2019-11-07 2019-11-07 Outpatient [facility] [id number] [place] 00:00:00 00:00:00 WILFRED 681 Method i 2019-06-09 2019-06-12 Inpatient LAVON, [facility] [id number] [place] 00:00:00 00:00:00 SRINIVASAN [address] 2019-05-28 2019-06-01 Inpatient DADA [facility] [id number] [place] 00:00:00 00:00:00 LUANN [address] 2019-02-24 2019-02-24 Outpatient [facility] [id number] [place] 00:00:00 00:00:00 WILFRED [address] Results Test Test Test Results Result Source Description Time Comments Comments CT Post 2020-08- [facility], Radiology [place] Myelogram 27 Results Incoming - [facility] Lumbar 15:55:43 09/05/2020 3:58 PM CDT EXAMINATION: CT POST MYELOGRAM LUMBARCLINICAL HISTORY: R26.9 Unspecified abnormalities of gait and mobility, M54.17 Radiculopathy lumbosacral region, l5 s1 radic previous hx of sxCOMPARISON: MRI L-spine 02/24/2019.TECHNIQUE: Axial postintrathecal contrast enhanced images of the spine were obtained with coronal and sagittal MIP reconstructed imaging. CT imaging was performed with iterative reconstruction technique and/or automated exposure control to reduce radiation dose.FINDINGS:There are 5 non-rib bearing lumbar type vertebrae, the lowest labeled L5 in this report as identified by the lumbosacral angle and iliolumbar ligaments. There are healed postsurgical changes compatible with decompressive laminectomies and posterior spinal instrumentation L2-S1. Surgical hardware appears intact, with solid osseous integration. There is diffuse osseous fusion of the lumbosacral spine, including large anterior flowing osteophytes extending from T12-S1 and hyperostosis of the posterior elements with solid osseous fusion. No displaced fractures identified. No subluxation. No suspicious osseous lesions. Evaluation of the visualized soft tissues demonstrates no mass, adenopathy or aneurysm. No hydronephrosis. There are moderate vacuum cleft deformity is within the sacroiliac joints bilaterally, image 29 of series 3, suggestive of moderate chronic sacroiliitis bilaterally.There is adequate opacification of the lumbar subarachnoid space revealing appropriate termination of the conus medullaris at the L1-L2 intervertebral level. There is peripheral displacement of the cauda equina nerve roots inferiorly, image 58 of series 3, suggestive of chronic arachnoiditis. A hyperattenuating abandoned fractured catheter is noted within the distal lumbar spinal canal, image 50 of series 314.Axial images through the disc spaces demonstrate the following:L1-L2: No significant posterior disc disease, spinal canal, subarticular zone, or neural foraminal stenosis.L2-L3: No significant posterior disc disease, spinal canal, subarticular zone, or neural foraminal stenosis.L3-L4: No significant posterior disc disease, spinal canal, subarticular zone, or neural foraminal stenosis.L4-L5: Mild to moderate right neural foraminal stenosis secondary to endplate osteophytes, image 44 series 315. No significant posterior disc disease, spinal canal, subarticular zone, or left neural foraminal stenosis.L5-S1: Mild to moderate right neural foraminal stenosis secondary to endplate osteophytes, image 40 of series 315. No significant posterior disc disease, spinal canal, subarticular zone, or left neural foraminal stenosis.Evaluation of other visualized levels demonstrates no significant posterior disc disease, spinal canal, subarticular zone, or neural foraminal stenosis.IMPRESSION:1.Heal ed postsurgical changes compatible with decompressive laminectomies and posterior spinal instrumentation L2-S1, with extensive osseous fusion of the visualized lumbosacral spine. However, there is peripheral displacement of the cauda equina nerve roots, suggestive of chronic arachnoiditis.2.Findings suggestive of moderate chronic bilateral sacroiliitis.[facility]-[id number] CT Post Interface, Radiology [facility] Myelogram 27 Results Incoming - Method ist Thoracic 15:55:34 09/05/2020 3:58 PM CDT EXAMINATION: CT POST MYELOGRAM THORACICCLINICAL HISTORY: R26.9 Unspecified abnormalities of gait and mobility, gait abnormalityCOMPARISON: CT chest 06/09/2019.TECHNIQUE: Axial postintrathecal contrast enhanced images of the spine were obtained with coronal and sagittal MIP reconstructed imaging. CT imaging was performed with iterative reconstruction technique and/or automated exposure control to reduce radiation dose.FINDINGS:12 rib bearing thoracic type vertebrae visualized. There are large anterior bridging osteophytes extending from T6-L2 levels, suggestive of DISH, image 26 of series 312. No displaced fractures identified. No suspicious osseous lesions. Vertebral body heights are preserved.There is mild dextroscoliotic curvature of the thoracic spine, however no AP subluxation. There is adequate opacification of the thoracic subarachnoid space. There is moderate to marked right-sided neural foraminal stenosis at T4-T5 and T5-T6 secondary to endplate osteophytes and scoliotic curvature, for example images 34 and 33 of series 312. No significant posterior disc disease, spinal canal, subarticular zone or neural foraminal stenosis throughout the thoracic spine.Limited visualization of the chest demonstrates no pleural effusion or suspicious lung mass. Transvenous pacing leads partially imaged. Scattered vascular opacifications are noted throughout the abdominal aorta. No hydronephrosis. Gallbladder surgically absent.IMPRESSION: Moderate to marked right-sided neural foraminal stenosis at T4-T5 and T5-6 secondary to endplate and facet osteophytes and scoliotic curvature. No significant thoracic spinal canal narrowing identified. [facility]-[id number] IR Myelogram Interface, Radiology [place] 2+Reg Incl Inj 27 Results Incoming - Ms fortunato W S&I 15:55:27 09/05/2020 3:58 PM CDT EXAMINATION: IR MYELOGRAM 2 REG INCL INJ W S&ICLINICAL HISTORY: M54.12 Radiculopathy cervical region, M54.17 Radiculopathy lumbosacral region, gait abnormalityCOMPARISON: MRI C-spine 11/07/2019. MRI L-spine 02/24/2019.TECHNIQUE:After informed consent was obtained, a safety timeout was performed. The patient was placed prone on the fluoroscopy table. The back was prepped and draped in sterile manner. 1% buffered lidocaine was used for local anesthesia.Under fluoroscopic guidance, a 5 inch 25 -gauge needle was advanced percutaneously into the spinal subarachnoid space via interlaminar approach at L5-S1 until free-flowing CSF returned from the hub. Subsequently, 10 mL of iohexol 300 was instilled into the thecal sac. The needle was removed. Multiple myelographic projections of the cervical and thoracolumbar spine were obtained. The patient tolerated procedure well with no immediate complication.Total fluoroscopy time was 0.1 minutes. Total radiation dose is 117 mGy = Ka,rFINDINGS:T/L SPINE:5 nonrib-bearing lumbar type vertebrae visualized. There are healed postsurgical changes compatible decompressive laminectomies and posterior spinous instrumentation L2-S1. No discussed fractures identified. Vertebral body heights are preserved.There is adequate opacification of the lumbar cervical space revealing absence of the distal cauda equina nerve roots, suggestive of peripheral displacement related to chronic arachnoiditis. No significant canal stenosis identified.C-SPINE:There are healed postsurgical changes compatible with ACDF C4-C7. There is suboptimal opacification of the cervical subarachnoid space due to inability for patient to extend neck. Faint contrast opacification is seen reaching the upper cervical spine. No significant indentation the ventral thecal sac identified.IMPRESSION:1.No nvisualization of the cauda equina nerve root sleeves, suggestive of peripheral displacement related to chronic arachnoiditis. Please see separate CT myelogram report for further details.2.Suboptimal opacification of the cervical segment right space secondary to inability to extend neck. Please see separate CT myelogram report for further details.[facility]-[id number] CT Post Interface, Radiology [facility] Myelogram 27 Results Incoming - [facility] Cervical 15:51:15 09/05/2020 3:54 PM CDT EXAMINATION: CT POST MYELOGRAM CERVICALCLINICAL HISTORY: R26.9 Unspecified abnormalities of gait and mobility, gait abnormalityCOMPARISON: MRI C-spine 11/07/2019.TECHNIQUE: Axial postintrathecal contrast enhanced images of the spine were obtained with coronal and sagittal MIP reconstructed imaging. CT imaging was performed with iterative reconstruction technique and/or automated exposure control to reduce radiation dose.FINDINGS:There are healed postsurgical changes compatible with anterior spinal instrumentation C4-C7 and there is extensive solid osseous fusion of the cervical and upper thoracic vertebra extending from C2-T3 through large anterior bridging osteophytes. 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 No subluxation. No displaced fractures identified. No suspicious osseous lesion. No prevertebral edema or neck mass identified. No cervical lymphadenopathy identified. Mild heterogeneous enlargement of thyroid gland, suggestive of thyroid goiter. Transvenous pacing leads partially imaged.Axial images through the disc spaces demonstrate the following:C1-C2: Congenital fusion anomaly. Resultant marked arthrosis along the atlantoaxial articulation.C2-C3: There appears to be mild to moderate left subarticular zone stenosis secondary to endplate osteophytes, image 71 of series 304. Spinal canal and neural foramina are patent bilaterally.C3-C4: No significant posterior disc disease, spinal canal, subarticular zone, or neural foraminal stenosis.C4-C5: No significant posterior disc disease, spinal canal, subarticular zone, or neural foraminal stenosis.C5-C6: No significant posterior disc disease, spinal canal, subarticular zone, or neural foraminal stenosis.C6-C7: No significant posterior disc disease, spinal canal, subarticular zone, or neural foraminal stenosis.C7-T1: No significant posterior disc disease, spinal canal, subarticular zone, or neural foraminal stenosis.IMPRESSION: 1.Status post remote ACDF C4-C7, with solid osseous fusion of the cervical and upper thoracic spine. 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.[id number] MRI BRACHIAL 2020-06- Interface, Radiology [place] PLEXUS WO 25 Results Incoming - Method ist (UPPER EXT) 14:12:25 07/04/2020 2:15 PM CDT EXAMINATION: MRI BRACHIAL PLEXUS WO (UPPER EXT)CLINICAL HISTORY: G54.0 Brachial plexus disorders, plexopathy-medial cordCOMPARISON: None.Findings:C3-C5 anterior fusion with interbody screws, surgical plate and disc graft.Left chest pacemaker device in place.There is heterogeneous fat saturation due to hardware artifact from the cervical fusion and pacemaker device limiting the evaluation of left brachial plexus signal. There is some possible increased signal within the brachial plexus at the level of mid clavicle.No masses or drainable fluid collections along the left brachial plexus.IMPRESSION:Possible mild increased signal of the left brachial plexus at the level of the mid clavicle as described.[id number]-[id number] XR Chest 2 Vw 2020-06- Interface, Radiology [place] 25 Results Incoming - Method ist 07:50:49 07/04/2020 7:53 AM CDT EXAMINATION: XR CHEST 2 VWCLINICAL HISTORY: Z95.0 Presence of cardiac pacemaker, mri clearanceCOMPARISON: 06/10/2019IMPRESSION:PA and lateral radiographs of the chest are reviewed. The heart size is normal. A left subclavian dual-lead pacemaking device is stable. There is hardware from cervical spine fusion. Hardware is also visualized in the upper lumbar spine.There is no consolidation or pulmonary edema. Some scarring is again seen within the lingula and right middle lobe. There is no pleural effusion or pneumothorax. There is no acute osseous abnormality.[facility][id number] EMG general 2019-11- Patient woke up with [...] mononeuropathies at the wrists may be superimposed/CTS Wilfred Vega M.D.Mark Godfrey Department of NeurologyBanner Gateway Medical Center[address] [place] [id number]: [phone]: NERVE CONDUCTION AND ELECTROMYOGRAPHY REPORTBanner Gateway Medical Center/[facility]; [place], [place] [address]; Name: Carl ChoiDate of Procedure: 11/24/19 Sex: female Date of [...] wnl wnl wnl wnl wnl MRI [facility]ervical 2019[facility]10[facility] Interface, Radiology [place] Spine Wo 28 Results Incoming - Method ist Contrast 10:01:36 11/07/2019 10:04 AM CDT EXAMINATION: MRI CERVICAL SPINE WO CONTRASTCLINICAL HISTORY: M54.12 Radiculopathy cervical region, left [id number]: NoneTECHNIQUE: Multiplanar multisequence noncontrast enhanced examination was [...] notably at C3-4 and C4-5 as detailed above.[id number] XR Rays No 2019-10- Hm Interface, Radiology [facility] Charge MRI 28 Results Incoming - Method ist 08:34:12 11/07/2019 8:37 AM CDT EXAMINATION: X RAYS [...] vena cava filter.4. Lumbosacral spine internal fixation instrumentation.[facility]-[id number]
--- NOTE | 2020-11-01 14:19 | RAD REPORT ---
EXAM DESCRIPTION: RAD - Chest Single View - 11/01/2020 2:13 pm CLINICAL HISTORY: general weakness COMPARISON: Chest Single View dated 12/02/2019; Chest Single View dated 06/09/2019; Chest Single View dated 05/27/2019; Chest Single View dated 12/02/2018 FINDINGS: No evidence of edema or pneumonia. Cardiomegaly. Pacemaker. ACDF in the cervical spine.No acute osseous abnormality. No significant pleural effusions or pneumothorax. IMPRESSION: No acute cardiopulmonary disease.
[2020-11-01 14:22] LABS: Absolute Lymphocytes (CBC) 4.8 K/uL (0.7-4.9); Basophils % 1.1 % (0-1.3); Hematocrit 36.5 % (36.0-45.0); Lymphocytes % 38.3 % (15.3-44.8); MPV 8.3 fL (7.6-11.3); RBC Red Blood Cell Count 4.01 M/uL (3.86-4.86)
[2020-11-01 14:23] LABS: Protime INR 0.91
--- NOTE | 2020-11-01 14:42 | RAD REPORT ---
EXAM DESCRIPTION: CT - Head C Spine Cap Wo Con - 11/01/2020 2:27 pm CLINICAL HISTORY: Trauma, head and neck injury. Chest, abdomen and pelvis pain. fall;Pain COMPARISON: No comparisons TECHNIQUE: CT head without contrast. CT cervical spine without contrast with coronal and sagittal reformatted images. CT chest, abdomen and pelvis without contrast with coronal and sagittal reformatted images of the spi ne. All CT scans are performed using dose optimization technique as appropriate and may include automated exposure control or mA/KV adjustment according to patient size. FINDINGS: CT HEAD WITHOUT CONTRAST: No intracranial hemorrhage, hydrocephalus or extra-axial fluid collection. No areas of brain edema o r midline shift. The paranasal sinuses and mastoids are clear. The calvarium is intact. CT CERVICAL SPINE WITHOUT CONTRAST: Chronic appearing C2 fracture. Status post C3 through C5 ACDF. The C2 fracture is well corticated con sistent with a chronic fracture. No new acute fractures identified. The hardware is intact. Multilevel cervical spondylosis. CT CHEST, ABDOMEN, PELVIS WITHOUT CONTRAST: NOTE: Lack of contrast is a significant limitation in the assessment of trauma related findings. Spec ifically, solid organ, vascular and bowel evaluation is significantly limited. The lungs are clear.No pneumothorax or pericardial/pleural fluid. Mild thyromegaly. Left upper chest wall pacemaker. Scattered coronary artery calcifications. No evidence of intra-abdominal visceral injury, free fluid or free air is seen within the above detai led limitations. Cholecystectomy. Hysterectomy. Diverticulosis without diverticulitis. Abdominal aort ic atherosclerosis without aneurysm. No concerning pelvic findings. Bridging osteophytes are present within the thoracic and lumbar spine. Status post L2 through S1 fusi on. The hardware is intact. IMPRESSION: Negative for acute traumatic findings within the above detailed limitations. Incidental findings as noted above. Chronic C2 fracture.
[2020-11-01 14:43] LABS: ALT/SGPT 39 U/L (12-78); AST/SGOT 23 U/L (15-37); Albumin 3.2 g/dL (3.4-5.0); Alkaline Phosphatase 150 U/L (45-117); BUN Blood Urea Nitrogen 25 mg/dL (7-18); Bicarbonate 30 mmol/L (21-32); Bilirubin Direct < 0.1 mg/dL (0-0.2); Bilirubin Total 0.2 mg/dL (0.2-1.0); Glucose Level 125 mg/dL (74-106); Magnesium 2.5 mg/dL (1.8-2.4); NT PRO-BNP 3469 pg/mL (<125); Potassium 4.2 mmol/L (3.5-5.1); Protein, Total 7.2 g/dL (6.4-8.2); Sodium Level 143 mmol/L (136-145); Troponin (Emerg Dept Use Only) 0.08 ng/mL (0.0-0.045)
[2020-11-01 16:01] LABS: Urine Blood Negative (Negative); Urine Glucose Negative (Negative); Urine Protein Negative (Negative); Urine pH 5.5 (5.0-7.0)
[2020-11-01 16:19] LABS: Urine Bacteria <20 /HPF (<20); Urine RBC <5 /HPF (NONE SEEN)
[2020-11-01] MEDS ORDERED: FENTANYL CITR 100 MCG/2 ML ONE (16:27)
[2020-11-01] MEDS ORDERED: CIPROFLOXACIN HCL 500 MG TAB ONE (17:06)
[2020-11-01] MEDS ORDERED: LEVALBUTEROL 1.25 MG/3 ML NEB ONE (17:07)
[2020-11-01] MEDS ORDERED: FUROSEMIDE 40 MG/4 ML VIAL ONE (17:59)
--- NOTE | 2020-11-01 18:43 | EDPHYS ---
Physician Documentation [facility] Name: Emeli Perez Age: 65 yrs Sex: Female : 1955 Arrival Date: 11/01/2020 Time: 13:37 Bed 30 Private MD: ED Physician Bruno Levine HPI: 11/01 13:55 This 65 yrs old Black Female presents to ER via EMS with complaints of Fall Injury. cp 13:55 Details of fall: The patient fell from an upright position, while standing. cp 13:55 Associated injuries: The patient sustained back and hip pain. The symptoms do not cp radiate. 13:55 Associated signs and symptoms: Pertinent negatives: nausea and vomiting, chest pain, cp diarrhea, fever, headache, palpitations, abdominal pain. 13:55 Presents to ED with complaints of fall from standing. Patient reports she was getting cp her medications ready to take them when she lost her balance fell backwards and struck her dresser. Patient denies loss of consciousness, denies syncope, denies chest pain prior to fall. Patient reports pain in her back and in her hips.. Historical: - Allergies: 13:50 Codeine; jd3 13:50 Darvocet-N 100; jd3 13:50 Morphine; jd3 13:50 PENICILLINS; jd3 - Home Meds: 13:50 alprazolam 0.5 mg Oral tab 1 tab [Active]; carvedilol 6.25 mg Oral tab 1 tab 2 times jd3 per day [Active]; clonidine HCl 0.2 mg Oral tab 1 tab once daily [Active]; gabapentin 300 mg Oral cap [Active]; hydrocodone-acetaminophen 10-650 mg Oral tab 1 tab every 6 hours [Active]; simvastatin 40 mg Oral tab for Hyperlipidemia [Active]; insulin regular human injection [Active]; - PMHx: 13:50 Arthritis; Hyperlipidemia; drop foot; Atrial Fib; Anxiety; CHF; Gout; kidney failure; jd3 Hypertension; Diabetes mellitus; - Immunization history:: Adult Immunizations up to date, Client reports receiving the 2nd dose of the Covid vaccine, Flu vaccine is up to date. - Social history:: Smoking status: Patient/guardian denies using tobacco, but has a distant history of tobacco abuse. ROS: 14:00 Eyes: Negative for injury, pain, redness, and discharge. cp 14:00 Constitutional: Negative for body aches, fever, poor PO intake. 14:00 Neck: Negative for pain with movement, pain at rest, stiffness. 14:00 Cardiovascular: Negative for chest pain, palpitations. 14:00 Respiratory: Negative for cough, shortness of breath, wheezing. 14:00 Abdomen/GI: Negative for abdominal pain, nausea, vomiting, and diarrhea. 14:00 Back: Positive for pain at rest, pain with movement. 14:00 MS/extremity: Positive for pain, of the right hip and left hip, Negative for decreased range of motion, deformity, paresthesias. 14:00 Neuro: Negative for altered mental status, headache, loss of consciousness, syncope, weakness. 14:00 All other systems are negative. Exam: 14:05 Constitutional: The patient appears in no acute distress, alert, awake, cp non-diaphoretic, non-toxic, well developed, well nourished, uncomfortable. 14:05 Head/Face: Normocephalic, atraumatic. cp 14:05 Eyes: Periorbital structures: appear normal, Pupils: equal, round, and reactive to light and accomodation, Extraocular movements: intact throughout, Conjunctiva: normal, no exudate, no injection, Sclera: no appreciated abnormality, Lids and lashes: appear normal, bilaterally. 14:05 ENT: External ear(s): are unremarkable, Ear canal(s): are normal, TM's: dullness, bilaterally, Nose: is normal, Mouth: Lips: moist, Oral mucosa: moist, Posterior pharynx: Airway: no evidence of obstruction, patent. 14:05 Neck: C-spine: vertebral tenderness, is not appreciated, crepitus, is not appreciated, ROM/movement: is normal, is supple, without pain, no range of motions limitations. 14:05 Chest/axilla: Inspection: normal, Palpation: is normal, no crepitus, no tenderness. 14:05 Cardiovascular: Rate: normal, Rhythm: regular, Edema: ankle edema, that is mild, JVD: is not appreciated. 14:05 Respiratory: the patient does not display signs of respiratory distress, Respirations: normal, no use of accessory muscles, no retractions, labored breathing, is not present, Breath sounds: decreased breath sounds, that are mild, throughout, stridor, is not appreciated, wheezing: is not appreciated. 14:05 Abdomen/GI: Inspection: abdomen appears normal, Palpation: abdomen is soft and non-tender, in all quadrants. 14:05 Back: pain, that is moderate, of the low back area and mid back area, ROM is painful, with all movement. 14:05 Musculoskeletal/extremity: Extremities: grossly normal except: noted in the right hip and left hip: pain, tenderness, There is no evidence of decreased ROM, deformity, ROM: limited active range of motion due to pain, in the right hip and left hip. 14:05 Neuro: Orientation: to person, place \T\ time. Mentation: is normal, Motor: moves all fours, strength is normal, Sensation: is normal. 14:17 ECG was reviewed by the Attending Physician. Vital Signs: 13:51 BP 164 / 68; Pulse 60; Resp 17 S; Temp 98.5(O); Pulse Ox 99% on R/A; Weight 99.34 kg jd3 (R); Height 5 ft. 0 in. (152.40 cm) (R); Pain 10/10; 14:47 BP 156 / 68; Pulse 60; Resp 20 S; Pulse Ox 100% on R/A; jd3 16:02 BP 151 / 70; Pulse 61; Resp 15 S; Pulse Ox 100% on R/A; jd3 17:47 BP 141 / 67; Pulse 60; Resp 17 S; Pulse Ox 98% on R/A; jd3 13:51 Body Mass Index 42.77 (99.34 kg, 152.40 cm) jd3 MDM: 14:00 Differential diagnosis: closed head injury, contusion, fracture, multiple trauma. cp 18:43 Patient medically screened. 18:43 Data reviewed: vital signs, nurses notes, lab test result(s), EKG, radiologic studies, cp CT scan, plain films. 18:43 Test interpretation: by ED physician or midlevel provider: ECG, plain radiologic cp studies. Counseling: I had a detailed discussion with the patient and/or guardian regarding: the historical points, exam findings, and any diagnostic results supporting the discharge/admit diagnosis, lab results, radiology results, the need for outpatient follow up, an music therapy specialist, to return to the emergency department if symptoms worsen or persist or if there are any questions or concerns that arise at home. Response to treatment: the patient's symptoms have markedly improved after treatment. 11/01 13:46 Order name: Basic Metabolic Panel; Complete Time: 14:44 11/01 14:45 Interpretation: Normal except: CL 110; GLUC 125; BUN 25; CRE 1.47; GFR 43; CA 8.4. 11/01 13:46 Order name: CBC with Diff; Complete Time: 14:42 11/01 14:42 Interpretation: Normal except: WBC 12.60; HGB 11.8; RDW 16.0. 11/01 13:46 Order name: LFT's; Complete Time: 15:36 11/01 15:36 Interpretation: Normal except: ALK 150; ALB 3.2; GLOB 4.0; A/G 0.8. 11/01 13:46 Order name: Magnesium; Complete Time: 15:36 11/01 13:46 Order name: NT PRO-BNP; Complete Time: 14:45 11/01 14:45 Interpretation: Abnormal: NT PRO-BNP 3469. 11/01 13:46 Order name: PT-INR; Complete Time: 14:42 11/01 13:46 Order name: Troponin (emerg Dept Use Only); Complete Time: 14:44 11/01 14:44 Interpretation: Abnormal: TROPED 0.08. 11/01 13:46 Order name: XRAY Chest (1 view); Complete Time: 14:42 11/01 13:52 Order name: CT Traumagram (Head C Spine CAP wo con); Complete Time: 14:44 11/01 13:53 Order name: Urine Microscopic Only 11/01 13:53 Order name: Urine Microscopic Only; Complete Time: 16:23 EDKS 11/01 16:23 Interpretation: Normal except: UWBC 5-10; SQEPI 5-10. 11/01 16:01 Order name: Urine Dipstick-Ancillary; Complete Time: 16:23 EDKS 11/01 16:19 Order name: Urine Culture [facility] 11/01 13:46 Order name: EKG; Complete Time: 13:47 11/01 13:46 Order name: Cardiac monitoring; Complete Time: 13:54 11/01 13:46 Order name: EKG - Nurse/Tech; Complete Time: 14:15 11/01 13:46 Order name: IV Saline Lock; Complete Time: 14:15 11/01 13:46 Order name: Labs collected and sent; Complete Time: 14:17 11/01 13:46 Order name: O2 Per Protocol; Complete Time: 13:54 cp 11/01 13:46 Order name: O2 Sat Monitoring; Complete Time: 13:54 cp 11/01 13:53 Order name: Urine Dipstick-Ancillary (obtain specimen); Complete Time: 16:09 11/01 13:53 Order name: Cath; Complete Time: 16:09 cp EC:17 Rate is 61 beats/min. Rhythm is regular, Paced. VT interval is normal. QRS interval is cp normal. QT interval is normal. Interpreted by me. Reviewed by me. Administered Medications: 16:09 Drug: fentaNYL (PF) 25 mcg Route: IVP; Site: right antecubital; jd3 17:00 Follow up: Response: No adverse reaction; RASS: Alert and Calm (0) jd3 16:53 Drug: Ciprofloxacin 500 mg Route: PO; jd3 17:50 Follow up: Response: No adverse reaction jd3 16:53 Drug: Xopenex (levalbuterol) (3) 1.25 mg Route: Inhalation; jd3 17:50 Follow up: Response: No adverse reaction jd3 17:47 Drug: Lasix (furosemide) 40 mg Route: IVP; Site: right antecubital; jd3 Disposition Summary: 11/01/20 18:43 Discharge Ordered Location: Home cp Problem: new cp Symptoms: have improved cp Condition: Stable cp Diagnosis - Fall on same level from slipping, tripping and stumbling with subsequent striking cp against object - Pain in hip - bilateral from fall cp - Unspecified combined systolic (congestive) and diastolic (congestive) heart failure cp - Dorsalgia, unspecified - from fall cp - UTI/ Urinary tract infection, site not specified cp Followup: cp - With: Private Physician - When: 2 - 3 days - Reason: Recheck today's complaints Discharge Instructions: - Discharge Summary Sheet cp - Acute Back Pain, Adult cp - Heart Failure, Diagnosis cp - Fall Prevention in the Home, Adult cp - Urinary Tract Infection, Adult cp Forms: - Medication Reconciliation Form cp - Thank You Letter cp - Antibiotic Education cp - Prescription Opioid Use cp Prescriptions: - Cipro 250 mg Oral Tablet - take 2 tablets by ORAL route every 12 hours for 7 days; 14 tablet; Refills: 0, cp Product Selection Permitted - Lasix 40 mg Oral Tablet - take 1 tablet by ORAL route once daily for 30 days; 30 tablet; Refills: 0, cp Product Selection Permitted Addendum: 11/03/2020 17:08 Co-signature as Attending Physician, Bruno camacho a2 Signatures: Dispatcher [employer] EDMS Roberto Encinas PA PA cp Davies, Jonathon RN RN az Levine, MD ELICEO Carr ma2 Corrections: (The following items were deleted from the chart) 11/01 13:51 13:50 Home Meds: losartan 25 mg Oral tab 1 tab once daily; jd3 jd3 14:45 14:44 Normal except: CL 110; GLUC 125; BUN 25; CRE 1.47; GFR 43. cp cp 11/02 16:11/01 16:00 Back: Positive for pain at rest, pain with movement, cp cp 11/02 16:11/01 16:00 Cardiovascular: Negative for chest pain, palpitations, cp cp 11/02 16:39 11/01 16:00 Respiratory: Negative for cough, shortness of breath, wheezing, cp cp 11/02 16:11/01 16:00 Abdomen/GI: Negative for abdominal pain, nausea, vomiting, and diarrhea, cp cp 11/02 16:11/01 16:00 Constitutional: Negative for body aches, fever, poor PO intake, cp cp 11/02 16:11/01 16:00 Eyes: Negative for injury, pain, redness, and discharge, cp cp 11/02 16:11/01 16:00 Neck: Negative for pain with movement, pain at rest, stiffness, cp cp 11/02 16:11/01 16:00 MS/extremity: Positive for pain, of the right hip and left hip, Negative cp for decreased range of motion, deformity, paresthesias, cp 11/02 16:11/01 16:00 Neuro: Negative for altered mental status, headache, loss of consciousness, cp syncope, weakness, cp 11/02 16:11/01 16:00 All other systems are negative, cp cp
--- NOTE | 2020-11-01 18:43 | ER ---
Nurse's Notes [facility] Name: Emeli Perez Age: 65 yrs Sex: Female : 1955 Arrival Date: 11/01/2020 Time: 13:37 Bed 30 Private MD: Diagnosis: Fall on same level from slipping, tripping and stumbling with subsequent striking against object;Pain in hip-bilateral from fall;Unspecified combined systolic (congestive) and diastolic (congestive) heart failure;Dorsalgia, unspecified-from fall;UTI/ Urinary tract infection, site not specified Presentation: 11/01 13:45 Chief complaint: EMS states: "pt reported falling after her legs gave out while jd3 standing in front of her dresser managing her medicines. she reported sliding down her dresser versus falling directly to the floor.". Coronavirus screen: At this time, the client does not indicate any symptoms associated with coronavirus-19. Ebola Screen: Patient negative for fever greater than or equal to 101.5 degrees Fahrenheit, and additional compatible Ebola Virus Disease symptoms. Initial Sepsis Screen: Does the patient meet any 2 criteria? No. Patient's initial sepsis screen is negative. Does the patient have a suspected source of infection? No. Patient's initial sepsis screen is negative. Risk Assessment: Do you want to hurt yourself or someone else? Patient reports no desire to harm self or others. Onset of symptoms was November 01, 2020. 13:45 Method Of Arrival: EMS: [facility] jd3 13:45 Acuity: CORNELIA 3 jd3 Historical: - Allergies: 13:50 Codeine; jd3 13:50 Darvocet-N 100; jd3 13:50 Morphine; jd3 13:50 PENICILLINS; jd3 - Home Meds: 13:50 alprazolam 0.5 mg Oral tab 1 tab [Active]; carvedilol 6.25 mg Oral tab 1 tab 2 times jd3 per day [Active]; clonidine HCl 0.2 mg Oral tab 1 tab once daily [Active]; gabapentin 300 mg Oral cap [Active]; hydrocodone-acetaminophen 10-650 mg Oral tab 1 tab every 6 hours [Active]; simvastatin 40 mg Oral tab for Hyperlipidemia [Active]; insulin regular human injection [Active]; - PMHx: 13:50 Arthritis; Hyperlipidemia; drop foot; Atrial Fib; Anxiety; CHF; Gout; kidney failure; jd3 Hypertension; Diabetes mellitus; - Immunization history:: Adult Immunizations up to date, Client reports receiving the 2nd dose of the Covid vaccine, Flu vaccine is up to date. - Social history:: Smoking status: Patient/guardian denies using tobacco, but has a distant history of tobacco abuse. Screenin:53 Abuse screen: Denies threats or abuse. Nutritional screening: No deficits noted. jd3 Tuberculosis screening: No symptoms or risk factors identified. Fall Risk Fall in past 12 months (25 points). Ambulatory Aid- None/Bed Rest/Nurse Assist (0 pts). Gait- Normal/Bed Rest/Wheelchair (0 pts) Mental Status- Oriented to own ability (0 pts). Total Floyd Fall Scale indicates No Risk (0-24 pts). Assessment: 13:52 General: Appears in no apparent distress. uncomfortable, Behavior is calm, cooperative, jd3 appropriate for age. Pain: Complains of pain in back, right leg and left leg Quality of pain is described as aching. Neuro: Level of Consciousness is awake, alert, obeys commands, Oriented to person, place, time, situation, Denies blurred vision numbness diplopia. Cardiovascular: Capillary refill < 3 seconds Patient's skin is warm and dry. Respiratory: Airway is patent Respiratory effort is even, unlabored, Respiratory pattern is regular, symmetrical, Denies cough, shortness of breath. GI: No signs and/or symptoms were reported involving the gastrointestinal system. : No signs and/or symptoms were reported regarding the genitourinary system. EENT: No signs and/or symptoms were reported regarding the EENT system. Derm: Skin is intact, Skin is dry, Skin is normal, Skin temperature is warm. Musculoskeletal: Circulation, motion, and sensation intact. Range of motion: intact in all extremities, Reports weakness in right leg and left leg. 14:47 Reassessment: Patient appears in no apparent distress at this time. No changes from jd3 previously documented assessment. Patient and/or family updated on plan of care and expected duration. Pain level reassessed. Patient is alert, oriented x 3, equal unlabored respirations, skin warm/dry/pink. 16:01 Reassessment: Patient appears in no apparent distress at this time. No changes from jd3 previously documented assessment. Patient and/or family updated on plan of care and expected duration. Pain level reassessed. Patient is alert, oriented x 3, equal unlabored respirations, skin warm/dry/pink. 16:17 Reassessment: spoke with family on the phone and updated on plan of care. jd3 Vital Signs: 13:51 BP 164 / 68; Pulse 60; Resp 17 S; Temp 98.5(O); Pulse Ox 99% on R/A; Weight 99.34 kg jd3 (R); Height 5 ft. 0 in. (152.40 cm) (R); Pain 10/10; 14:47 BP 156 / 68; Pulse 60; Resp 20 S; Pulse Ox 100% on R/A; jd3 16:02 BP 151 / 70; Pulse 61; Resp 15 S; Pulse Ox 100% on R/A; jd3 17:47 BP 141 / 67; Pulse 60; Resp 17 S; Pulse Ox 98% on R/A; jd3 13:51 Body Mass Index 42.77 (99.34 kg, 152.40 cm) jd3 ED Course: 13:37 Patient arrived in ED. cp 13:37 Roberto Encinas PA is PHCP. cp 13:37 Bruno Levine MD is Attending Physician. cp 13:44 Naresh Bustillo RN is Primary Nurse. jd3 13:49 Triage completed. jd3 13:52 Arm band placed on. jd3 13:53 Patient has correct armband on for positive identification. Bed in low position. Call j light in reach. Side rails up X2. enrollment coordinator on. Pulse ox on. NIBP on. 14:13 XRAY Chest (1 view) In Process Unspecified. EDMS 14:17 Inserted saline lock: 20 gauge in right antecubital area, using aseptic technique. jd3 Blood collected. 14:17 EKG done, by ED staff, reviewed by Roberto VAN. jd3 14:27 CT Traumagram (Head C Spine CAP wo con) In Process Unspecified. EDMS 19:27 No provider procedures requiring assistance completed. IV discontinued, intact, iw bleeding controlled, No redness/swelling at site. Pressure dressing applied. Administered Medications: 16:09 Drug: fentaNYL (PF) 25 mcg Route: IVP; Site: right antecubital; jd3 17:00 Follow up: Response: No adverse reaction; RASS: Alert and Calm (0) jd3 16:53 Drug: Ciprofloxacin 500 mg Route: PO; jd3 17:50 Follow up: Response: No adverse reaction jd3 16:53 Drug: Xopenex (levalbuterol) (3) 1.25 mg Route: Inhalation; jd3 17:50 Follow up: Response: No adverse reaction jd3 17:47 Drug: Lasix (furosemide) 40 mg Route: IVP; Site: right antecubital; jd3 Outcome: 18:43 Discharge ordered by MD. cp 19:27 Discharged to home via wheelchair, with friend. iw 19:27 Condition: good 19:27 Discharge instructions given to patient, Instructed on discharge instructions, follow up and referral plans. medication usage, Demonstrated understanding of instructions, follow-up care, medications, Prescriptions given X 2. 19:27 Patient left the ED. iw Addendum: 11/05/2020 08:42 Addendum: Culture Results: Positive urine culture. No further action required. Bacteria s s sensitive to prescribed antibiotic. Signatures: Dispatcher [employer] EDUrsula Foster RN RN Denisse Salmon RN RN ss Page, Corey, CARLOTA PA Naresh Blackwell RN RN jd3 Corrections: (The following items were deleted from the chart) 11/01 13:51 13:50 Home Meds: losartan 25 mg Oral tab 1 tab once daily; jd3 jd3
[2020-11-01 19:33] VITALS: TEMP 98.5
[2020-11-01 19:38] VITALS: BP 141/67; O2SAT 98
== END 2020-11-01 19:27 | disposition home or self-care (01) ==
LOC: ER 13:26
DX: M25.552 Pain in left hip (principal); M25.551 Pain in right hip; N39.0 Urinary tract infection, site not specified; I50.40 Unspecified combined systolic (congestive) and diastolic (congestive) heart failure; W01.198A Fall on same level from slipping, tripping and stumbling with subsequent striking against other object, initial encounter; Y93.89 Activity, other specified; Y92.009 Unspecified place in unspecified non-institutional (private) residence as the place of occurrence of the external cause; I10 Essential (primary) hypertension; E11.9 Type 2 diabetes mellitus without complications; Z79.4 Long term (current) use of insulin; Z88.0 Allergy status to penicillin; Z88.5 Allergy status to narcotic agent
CPT/HCPCS: 93005; 87088; 85025; 87086; 80048; 36415; 83735; 85610; 80076; 87077; 87186; 84484; 83880; 70450; 71250; 72125; 71045; 96375; 96374; 99285; J1940; J3010; 81003; 81015

== ENCOUNTER 2020-12-31 14:21 | Emergency (ER) | payer OTHER ==
[2020-12-31] MEDS ORDERED: ONDANSETRON 4 MG/2 ML VIAL ONE (18:14)
[2020-12-31] MEDS ORDERED: FENTANYL CITR 100 MCG/2 ML ONE (18:14)
--- NOTE | 2020-12-31 19:23 | RAD REPORT ---
EXAM DESCRIPTION: US - Extremity Venous Uni Ltd - 12/31/2020 7:00 pm CLINICAL HISTORY: PAIN COMPARISON: DVT study November 2019 TECHNIQUE: Real-time sonographic evaluation of the left lower extremity deep venous system was perfo rmed. FINDINGS: Normal compressibility, flow augmentation, phasic flow and spontaneous flow are identified in the left lower extremity common femoral, superficial femoral, popliteal and posterior tibial vein s. No intraluminal filling defects seen. IMPRESSION: No DVT in the left lower extremity.
--- NOTE | 2020-12-31 19:26 | RAD REPORT ---
EXAM DESCRIPTION: US - Lower Extremity Artery Uni Ltd - 12/31/2020 7:00 pm CLINICAL HISTORY: leg pain COMPARISON: LOW EXT ARTERY UNI LTD dated 10/16/2013 TECHNIQUE: Doppler evaluation of the left lower extremity arterial tree performed. Waveforms and nithin ocity values were obtained along with visual inspection. FINDINGS: No left lower extremity occlusion or focal flow restricting lesion identified. Monophasic waveform pattern is seen along the entire length of the left lower extremity. This is likely due to s ignificant vascular disease in the left iliac vasculature or aorta. Vascular wall atherosclerotic xavier cifications are present. Left common femoral artery peak systolic velocity was 170 cm/seconds with the superficial femoral art jodie 72 cm/second and the popliteal artery 72 cm/second. IMPRESSION: No occlusion or focal flow restricting lesion in the left lower extremity. Monophasic waveform along the entire length of the left leg would indicate the presence of significan t distal aorta or left iliac artery vascular disease.
--- NOTE | 2020-12-31 20:20 | RAD REPORT ---
EXAM DESCRIPTION: CT - Spine Lumbar Wo Con - 12/31/2020 7:48 pm CLINICAL HISTORY: PAIN COMPARISON: None. TECHNIQUE: Thin section axial imaging of the lumbar spine was performed. Sagittal and coronal recon struction images were generated and reviewed. All CT scans are performed using dose optimization technique as appropriate and may include automated exposure control or mA/KV adjustment according to patient size. FINDINGS: Due to pain, patient could not be optimally positioned on the CT table. Bilateral pedicle screws and rods are in place spanning L2- S1. Bony bridging fuses the L3-4 through L5-S1 disc levels. L2-3 disc level is not fully fused. There is some posterior partial bridging. Kerri ent also has anterior and right lateral bony bridging of the L1-2 disc level. No acute fracture seen. No pathologic or destructive bone process identifiable. There is extensive he terotopic bone along the posterior elements as part of the fusion process. Neurostimulator wires in p lace in the lumbosacral central canal. Central canal assessment is inherently limited on CT imaging and further limited due to the spray art ifact from the fusion hardware. Central spinal stenosis is not suspected. Endplate bony hypertrophy c auses L4-5 and L5-S1 foraminal stenosis. Paraspinal musculature shows no acute finding. Aortic calcifications are present without aneurysm. SI joint degenerative changes are present with degenerative gas in the joint spaces. DVT filter present in the right common iliac vein at the junction with the IVC IMPRESSION: Extensive postsurgical changes are present spanning L2-S1. There is complete or partial fusion across the disc levels spanning L1-2 through L5-S1. No central spinal stenosis seen. No acute bone or hardware finding seen. Endplate hypertrophy causes bilateral bony foraminal encroachment at L4-5 and L5-S1.
[2020-12-31] MEDS ORDERED: DIAZEPAM 10 MG/2 ML INJ SYRINGE ONE (21:15)
[2020-12-31] MEDS ORDERED: HYDROMORPHONE HCL 0.5 MG/0.5 ML INJ ONE (21:16)
--- NOTE | 2020-12-31 21:22 | ER ---
Nurse's Notes [facility] Name: Emeli Perez Age: 65 yrs Sex: Female : 1955 Arrival Date: 12/31/2020 Time: 14:26 Bed 27 Private MD: William Uribe Diagnosis: Lumbago with sciatica, left side Presentation: 12/31 15:04 Chief complaint: Patient states: Severe pain down L leg for a couple weeks, more severe ll1 for the past 3 days. No trauma or falls. Coronavirus screen: Vaccine status: Patient reports receiving the 2nd dose of the covid vaccine. Client denies travel out of the [place] in the last 14 days. At this time, the client does not indicate any symptoms associated with coronavirus-19. Ebola Screen: Patient denies travel to an Ebola-affected area in the 21 days before illness onset. Initial Sepsis Screen: Does the patient meet any 2 criteria? No. Patient's initial sepsis screen is negative. Does the patient have a suspected source of infection? No. Patient's initial sepsis screen is negative. Risk Assessment: Do you want to hurt yourself or someone else? Patient reports no desire to harm self or others. Onset of symptoms was December 17, 2020. 15:04 Method Of Arrival: Wheelchair ll1 15:04 Acuity: CORNELIA 3 ll1 Historical: - Allergies: 15:03 Codeine; ll1 15:03 Darvocet-N 100; ll1 15:03 Morphine; ll1 15:03 PENICILLINS; ll1 - PMHx: 15:03 CHF; diabetes mellitus; drop foot; Gout; Atrial Fib; Hyperlipidemia; Arthritis; ll1 Anxiety; kidney failure; Hypertension; - Immunization history:: Client reports receiving the 2nd dose of the Covid vaccine. - Social history:: Smoking status: Patient reports the use of cigarette tobacco products, smokes one-half pack cigarettes per day. Screenin:14 Abuse screen: Denies threats or abuse. Nutritional screening: No deficits noted. vg1 Tuberculosis screening: No symptoms or risk factors identified. Fall Risk No fall in past 12 months (0 pts). No secondary diagnosis (0 pts). IV access (20 points). Ambulatory Aid- Crutches/Cane/Walker (15 pts). Gait- Impaired (20 pts.). Mental Status- Oriented to own ability (0 pts). Total Floyd Fall Scale indicates High Risk Score (45 or more points). Fall prevention measures have been instituted. Side Rails Up X 2 Placed Close to Nursing Station. Assessment: 18:00 General: Appears in no apparent distress. uncomfortable, Behavior is cooperative, vg1 anxious. Pain: Complains of pain in left leg Pain currently is 10 out of 10 on a pain scale. Pain began x1 week Noted to be crying, grimacing, guarding, moaning. Neuro: Level of Consciousness is awake, alert, obeys commands, Oriented to person, place, time, situation. Cardiovascular: Patient's skin is warm and dry. Respiratory: Airway is patent Respiratory effort is even, unlabored. GI: No signs and/or symptoms were reported involving the gastrointestinal system. : No signs and/or symptoms were reported regarding the genitourinary system. EENT: No signs and/or symptoms were reported regarding the EENT system. Derm: Skin is intact, is healthy with good turgor. Musculoskeletal: Circulation, motion, and sensation intact. 20:51 Reassessment: Valium 5 mg IV given for PRS 10/10 to right leg / groin Patient denies cc4 pain at this time. 21:21 Reassessment: Pt resting quietly with eyes closed, appears comfortable. VSS , will make cc4 Provider aware and get ready for discharge. 21:26 Reassessment: Dilaudid 0.5 mg IV given for right leg and groin pain. VSS. cc4 21:29 Reassessment: Pt ambulate to bathroom with walker, steady gait, pt is calm and appears cc4 comfortable, states " I feel way better , thank you " Waiting on discharge papers. Vital Signs: 15:04 BP 188 / 78; Pulse 73; Resp 18; Temp 98.4; Pulse Ox 100% ; Weight 98.88 kg; Height 5 ll1 ft. 0 in. (152.40 cm); Pain 10/10; 18:12 BP 160 / 95; Pulse 99; Resp 20; Pulse Ox 95% ; vg1 20:50 BP 162 / 75; Pulse 60; Resp 20; Pulse Ox 100% on R/A; cc4 20:59 BP 170 / 70; Pulse 60; Resp 20; Pulse Ox 100% on R/A; cc4 21:22 BP 157 / 85; Pulse 64; Resp 18; Pulse Ox 100% on R/A; Pain 0/10; cc4 15:04 Body Mass Index 42.57 (98.88 kg, 152.40 cm) ll1 ED Course: 14:26 Patient arrived in ED. am2 14:26 William Uribe DO is Private Physician. am2 15:03 Arm band placed on. ll1 15:05 Triage completed. 1 16:10 Fred Meléndez PA is PHCP. [facility] 16:10 He Canas MD is Attending Physician. jmm 18:07 Missed attempt(s): 24 gauge in right wrist. vg1 18:12 Ana Peña is Primary Nurse. kh1 18:15 Patient has correct armband on for positive identification. Bed in low position. Call vg1 light in reach. Side rails up X2. 18:15 No provider procedures requiring assistance completed. vg1 19:00 US Extremity Venous Unilateral Ltd In Process Unspecified. EDMS 19:00 US Lower Extremity Artery Uni Ltd In Process Unspecified. EDMS 19:49 CT Lumbar Spine Wo Con In Process Unspecified. EDMS 21:21 William Uribe DO is Referral Physician. [facility] Administered Medications: 18:30 Drug: fentaNYL (PF) 50 mcg Route: IVP; Site: left hand; kh1 18:30 Drug: Zofran (Ondansetron) 4 mg Route: IVP; Site: left hand; kh1 Outcome: 21:21 Discharge ordered by . [facility] 21:39 Discharged to home ambulatory, with walker cc4 21:39 Condition: improved 21:39 Discharge instructions given to patient, Instructed on follow up and referral plans. 21:39 Patient left the ED. cc4 Signatures: Dispatcher [employer] EDMS Fred Meléndez PA PA jmm Moreno, Amanda am2 Modesta Yee, RN RN 1 Pawan Mckeon, RN RN 1 Ana Peña 1 Mona Sunshine RN RN cc4
--- NOTE | 2020-12-31 21:22 | EDPHYS ---
Physician Documentation [facility] Name: Emeli Perez Age: 65 yrs Sex: Female : 1955 Arrival Date: 12/31/2020 Time: 14:26 Bed 27 Private MD: William Uribe ED Physician He Canas HPI: 12/31 16:35 This 65 yrs old Black Female presents to ER via Wheelchair with complaints of Hip Pain jmm - radiating to ankle. 16:35 Onset: The symptoms/episode began/occurred gradually, 3 week(s) ago. Modifying factors: jmm The symptoms are alleviated by nothing. the symptoms are aggravated by nothing. Associated signs and symptoms: Pertinent positives:. This is a 65-year-old female with history of CHF, diabetes mellitus, foot drop, gout, atrial fibrillation, hyperlipidemia the presents emerged part with complaints of left ankle pain which radiates up her leg. Patient states she was diagnosed with a pinched nerve approximately 3 weeks ago. Patient states the pain intensified this past Wednesday.. Historical: - Allergies: 15:03 Codeine; ll1 15:03 Darvocet-N 100; ll1 15:03 Morphine; ll1 15:03 PENICILLINS; ll1 - PMHx: 15:03 CHF; diabetes mellitus; drop foot; Gout; Atrial Fib; Hyperlipidemia; Arthritis; ll1 Anxiety; kidney failure; Hypertension; - Immunization history:: Client reports receiving the 2nd dose of the Covid vaccine. - Social history:: Smoking status: Patient reports the use of cigarette tobacco products, smokes one-half pack cigarettes per day. ROS: 16:35 Constitutional: Negative for fever, chills, and weight loss, Cardiovascular: Negative jmm for chest pain, palpitations, and edema, Respiratory: Negative for shortness of breath, cough, wheezing, and pleuritic chest pain. 16:35 MS/extremity: Positive for pain. 16:35 All other systems are negative. Exam: 16:35 Head/Face: atraumatic. ENT: Moist Mucus Membranes Neck: Trachea midline, Supple jmm Chest/axilla: Normal chest wall appearance and motion. Cardiovascular: Regular rate and rhythm. No edema appreciated Respiratory: Normal respirations, no respiratory distress appreciated Abdomen/GI: Non distended, soft 16:35 Skin: General appearance color normal 16:35 Constitutional: The patient appears alert, awake, uncomfortable. 16:35 Musculoskeletal/extremity: Left foot is warm, tenderness is expressed on palpation of the foot diffusely. 16:35 Skin: Appearance: Color: normal in color. 16:35 Neuro: Orientation: is normal, Mentation: is normal, Memory: is normal. 16:35 Psych: Behavior/mood is pleasant, cooperative. Vital Signs: 15:04 BP 188 / 78; Pulse 73; Resp 18; Temp 98.4; Pulse Ox 100% ; Weight 98.88 kg; Height 5 ll1 ft. 0 in. (152.40 cm); Pain 10/10; 18:12 BP 160 / 95; Pulse 99; Resp 20; Pulse Ox 95% ; vg1 20:50 BP 162 / 75; Pulse 60; Resp 20; Pulse Ox 100% on R/A; cc4 20:59 BP 170 / 70; Pulse 60; Resp 20; Pulse Ox 100% on R/A; cc4 21:22 BP 157 / 85; Pulse 64; Resp 18; Pulse Ox 100% on R/A; Pain 0/10; cc4 15:04 Body Mass Index 42.57 (98.88 kg, 152.40 cm) ll1 MDM: 16:29 Patient medically screened. [facility] 21:20 Data reviewed: vital signs, nurses notes. Counseling: I had a detailed discussion with [facility] the patient and/or guardian regarding:. 21:20 Counseling: I had a detailed discussion with the patient and/or guardian regarding: the [facility] historical points, exam findings, and any diagnostic results supporting the discharge/admit diagnosis, lab results, radiology results, the need for outpatient follow up, to return to the emergency department if symptoms worsen or persist or if there are any questions or concerns that arise at home. ED course: Patient is advised to follow-up with spine surgery for reevaluation. Patient most recently had a spine fusion in 2008. Patient states his symptoms now are similar to before the surgery. Patient has no fever numbness urinary or fecal incontinence extensor pollicis longus intact. I do not currently suspect cord compression, spinal abscess, patient is given strict return precautions. Patient understood agrees plan of care.. 12/31 16:25 Order name: Extremity Venous Unilateral Ltd; Complete Time: 19:26 [facility] 12/31 16:25 Order name: US Lower Extremity Artery Uni Ltd; Complete Time: 19:29 [facility] 12/31 16:26 Order name: CT Lumbar Spine Wo Con; Complete Time: 20:21 [facility] 12/31 16:25 Order name: Saline Lock; Complete Time: 18:50 [facility] Administered Medications: 18:30 Drug: fentaNYL (PF) 50 mcg Route: IVP; Site: left hand; 1 18:30 Drug: Zofran (Ondansetron) 4 mg Route: IVP; Site: left hand; formerly [facility] Disposition Summary: 12/31/20 21:21 Discharge Ordered Location: Home [facility] Condition: Stable [facility] Diagnosis - Lumbago with sciatica, left side [facility] Followup: [facility] - With: William Uribe DO - When: 1 - 2 days - Reason: Recheck today's complaints, Continuance of care, Re-evaluation by your physician Discharge Instructions: - Discharge Summary Sheet [facility] - Sciatica [facility] Forms: - Medication Reconciliation Form [facility] - Thank You Letter [facility] - Antibiotic Education [facility] - Prescription Opioid Use [facility] Prescriptions: - Zanaflex 4 mg Oral Tablet - take 1 tablet by ORAL route every 8 hours As needed; 20 tablet; Refills: 0, [facility] Product Selection Permitted Addendum: 01/04/2021 19:07 Co-signature as Attending Physician, He Canas MD I agree with the assessment and r n plan of care. Attestation: The patient's history, exam findings, diagnostics, and a summary of any interventions or procedures was reviewed in detail with Fred VAN. Signatures: Dispatcher [employer] Fred Maddox PA PA He Aviles MD MD rn Lewis, Lynsay, RN RN ll1 Ana Peña formerly [facility]
[2020-12-31 23:50] VITALS: TEMP 98.4
[2020-12-31 23:52] VITALS: O2SAT 100
[2020-12-31 23:55] VITALS: BP 157/85
== END 2020-12-31 21:39 | disposition home or self-care (01) ==
LOC: ER 14:21
DX: M54.42 Lumbago with sciatica, left side (principal); I10 Essential (primary) hypertension; F17.210 Nicotine dependence, cigarettes, uncomplicated; Z88.0 Allergy status to penicillin; Z88.5 Allergy status to narcotic agent
CPT/HCPCS: 72131; 93926; 93971; 96374; 96375; 99283; J1170; J2405; J3010; J3360

== ENCOUNTER 2021-01-03 15:35 | Inpatient (IN) | payer OTHER ==
--- NOTE | 2021-01-03 16:46 | RAD REPORT ---
EXAM DESCRIPTION: RAD - Chest Single View - 01/03/2021 4:33 pm CLINICAL HISTORY: found on ground COMPARISON: Chest Single View dated 11/01/2020; Chest Single View dated 12/02/2019; Chest Single View dated 06/09/2019; Chest Single View dated 05/27/2019 FINDINGS: Lines: None. Lungs: Decreased lung volumes. Linear opacities of the left lung base likely representing subsegmenta l atelectasis. Pleural: No significant pleural effusions or pneumothorax. Cardiac: Cardiomegaly. Pacemaker. Bones: No acute fractures. ACDF in the cervical spine. Other: IMPRESSION: No acute cardiopulmonary disease.
[2021-01-03 17:19] LABS: Absolute Lymphocytes (CBC) 1.9 K/uL (0.7-4.9); Basophils % 0.2 % (0-1.3); Hematocrit 41.8 % (36.0-45.0); Lymphocytes % 9.2 % (15.3-44.8); MPV 9.8 fL (7.6-11.3); RBC Red Blood Cell Count 4.68 M/uL (3.86-4.86)
[2021-01-03 17:23] LABS: Protime INR 1.2
[2021-01-03 17:36] LABS: Urine Blood Trace-intact (Negative); Urine Glucose Negative (Negative); Urine Protein Negative (Negative); Urine Specific Gravity 1.015 (1.005-1.030); Urine pH 5.5 (5.0-7.0)
[2021-01-03 17:41] LABS: Bilirubin Direct 0.2 mg/dL (0-0.2); Bilirubin Total 0.8 mg/dL (0.2-1.0); Magnesium 2.7 mg/dL (1.8-2.4); Potassium 3.7 mmol/L (3.5-5.1); Protein, Total 7.5 g/dL (6.4-8.2)
--- NOTE | 2021-01-03 17:42 | RAD REPORT ---
EXAM DESCRIPTION: CT - Head C Spine Cap Wo Con - 01/03/2021 5:16 pm CLINICAL HISTORY: found on ground COMPARISON: Head C Spine Cap Wo Con dated 11/01/2020; Spine Lumbar Wo Con dated 12/31/2020; Head C Spi ne Cap Wo Con dated 06/05/2017 TECHNIQUE: CT head without contrast. CT cervical spine without contrast with coronal and sagittal reformatted images. CT chest, abdomen and pelvis without contrast with coronal and sagittal reformatted images of the spi ne. All CT scans are performed using dose optimization technique as appropriate and may include automated exposure control or mA/KV adjustment according to patient size. FINDINGS: CT HEAD WITHOUT CONTRAST: No intracranial hemorrhage, hydrocephalus or extra-axial fluid collection. No areas of brain edema o r midline shift. Small focus of hypoattenuation in the right pagan radiata is unchanged. Suspect mil d chronic small vessel ischemic changes. Re- demonstrated prominent empty expanded sella. The paranasal sinuses and mastoids are clear. The calvarium is intact. CT CERVICAL SPINE WITHOUT CONTRAST: Chronic C2 fracture again noted. Status post C4 through C6 fusion. The prevertebral soft tissues are normal in thickness. CT CHEST, ABDOMEN, PELVIS WITHOUT CONTRAST: NOTE: Lack of contrast is a significant limitation in the assessment of trauma related findings. Spec ifically, solid organ, vascular and bowel evaluation is significantly limited. The lungs are clear.No pneumothorax or pericardial/pleural fluid. Upper chest wall pacemaker. No evidence of intra-abdominal visceral injury, free fluid or free air is seen within the above detai led limitations. The bladder is decompressed around Mike catheter. Moderate stool in the colon. No concerning pelvic findings. L2 through S1 fusion. Multilevel degenerative changes are present in t he spine. IMPRESSION: Negative for acute traumatic findings within the above detailed limitations.
[2021-01-03 17:44] LABS: Troponin (Emerg Dept Use Only) 0.85 ng/mL (0.0-0.045)
[2021-01-03] MEDS ORDERED: NA CHLORIDE 0.9% 1,000 ML ONE (18:23)
[2021-01-03] MEDS ORDERED: FENTANYL CITR 100 MCG/2 ML ONE (18:36)
[2021-01-03 18:37] LABS: Platelet Estimate ADEQ
[2021-01-03 18:38] LABS: Blood Morphology Comment NOT SEEN (NOT SEEN)
[2021-01-03] MEDS ORDERED: CEFEPIME 1 GM in NA CHLORIDE 0.9% 100 ML IV ONE (19:00)
[2021-01-03 19:03] LABS: Urine Bacteria <20 /HPF (<20); Urine Mucus 1+ /HPF (NONE SEEN); Urine RBC <5 /HPF (NONE SEEN)
--- NOTE | 2021-01-03 19:16 | ER ---
Nurse's Notes [facility] Name: Emeli Perez Age: 65 yrs Sex: Female : 1955 Arrival Date: 01/03/2021 Time: 15:41 Bed 6 Private MD: Diagnosis: Cellulitis of right lower limb;Non ST elevation OR Presentation: 01/03 15:41 Chief complaint: EMS states: FOUND DOWN BY STAFF AT [facility], UNKNOWN DOWNTIME. SMELLS bp OF FECES AND URINE. 15:41 Coronavirus screen: At this time, the client does not indicate any symptoms associated bp with coronavirus-19. Ebola Screen: No symptoms or risks identified at this time. Initial Sepsis Screen: Does the patient meet any 2 criteria? No. Patient's initial sepsis screen is negative. Does the patient have a suspected source of infection? Yes: Skin breakdown/wound. Risk Assessment: Do you want to hurt yourself or someone else? Patient reports no desire to harm self or others. Onset of symptoms is unknown. Care prior to arrival: Glucose check: 172. 15:41 Method Of Arrival: EMS: [facility] bp 15:41 Acuity: CORNELIA 2 bp Triage Assessment: 15:41 General: Appears distressed, uncomfortable, obese, unkempt, Behavior is cooperative, bp appropriate for age, anxious, drowsy. Pain: Complains of pain in pelvis. EENT: No deficits noted. Neuro: Level of Consciousness is obeys commands, lethargic, Oriented to Appropriate for age. Cardiovascular: Reports chest pain. Respiratory: No deficits noted. GI: No signs and/or symptoms were reported involving the gastrointestinal system. : No signs and/or symptoms were reported regarding the genitourinary system. Derm: Decubitus located on PANAS. Musculoskeletal: No deficits noted. Circulation, motion, and sensation intact. Range of motion: intact in all extremities. Historical: - Allergies: 15:41 Codeine; bp 15:41 Darvocet-N 100; bp 15:41 Morphine; bp 15:41 PENICILLINS; bp - PMHx: 15:41 Anxiety; Arthritis; Atrial Fib; CHF; diabetes mellitus; drop foot; Gout; bp Hyperlipidemia; Hypertension; kidney failure; - Immunization history:: Adult Immunizations up to date. - Social history:: Smoking status: Patient denies any tobacco usage or history of. Screenin:15 Abuse screen: Denies threats or abuse. Denies injuries from another. Nutritional bp screening: No deficits noted. Tuberculosis screening: No symptoms or risk factors identified. Fall Risk None identified. Assessment: 16:15 General: SEE TRIAGE NOTE. bp 16:23 Neuro: Level of Consciousness is obeys commands, Drowsy. Oriented to person, place, jl7 time. Cardiovascular: Patient's skin is warm and dry. GI: Pt noted to have a large amount of stool hanging from her anus, pt cleaned of incontinence and Mike placed as ordered. Derm: Wound noted medial aspect of right thigh Wound is skin appears to have sloughed off an area of approximately 5x8 inches, red and white coloring noted to wound bed , fluid filled blister noted to pelvic area. Vital Signs: 15:41 Weight 90.72 kg; bp 15:45 BP 126 / 51; Pulse 57; Resp 15; Temp 97; Pulse Ox 98% ; jl7 18:22 BP 153 / 74; Pulse 76; Resp 15 S; Pulse Ox 97% on R/A; jl7 ED Course: 15:41 Patient arrived in ED. jl7 15:41 Arm band placed on. bp 15:56 Roberto Encinas PA is PHCP. cp 15:56 Harpreet Moreno MD is Attending Physician. cp 16:08 Triage completed. bp 16:15 Patient has correct armband on for positive identification. Bed in low position. Call bp light in reach. Side rails up X2. 16:21 French Chavez, BRANDIN is Primary Nurse. jl7 16:23 Mike cath inserted, using sterile technique, 16 Fr., by tx, balloon inflated, to jl7 gravity drainage, urine specimen collected. returned lex urine. Patient tolerated well. 16:25 Warm blanket given. Pillow given. CLEANED AND DRESSES WOUND , CHANGED IN NEW DIAPER mh5 .CLEANED BED LINES .. outside salesperson on. Pulse ox on. NIBP on. 16:34 XRAY Chest (1 view) In Process Unspecified. EDMS 16:50 Inserted saline lock: 22 gauge in left upper arm, using aseptic technique. Blood dh3 collected. 16:50 First set of blood cultures drawn by me. dh3 16:56 Initial lab(s) drawn, by me, sent to lab. Second set of blood cultures drawn by me. counts include 234 beds at the [facility] 16:58 Missed attempt(s): 22 gauge wrist. antecubital area. [facility] 17:16 Head C Spine Cap Wo Con In Process Unspecified. EDWY 18:35 COVID-19 : Document "Date of Symptom Onset" if Symptomatic. Sent. [facility] 18:36 EKG done, by ED staff, reviewed by Roberto VAN COVID swab sent to lab. [facility] 19:15 Maurice Lr PA is Hospitalizing Provider. cp 22:45 No provider procedures requiring assistance completed. Patient admitted, IV remains in ea place. Administered Medications: 17:55 Not Given (Physician Discretion): NS 0.9% 1000 ml IV at 1000 ml/hr Per protocol; 1000 cp mL bolus 18:10 Drug: NS 0.9% 1000 ml Route: IV; Rate: 75 ml/hr; Site: left upper arm; jl7 18:22 Drug: Cefepime 1 grams Route: IVPB; Rate: 200 ml/hr; Infused Over: 30 mins; Site: left jl7 upper arm; 21:27 Drug: Lovenox (enoxaparin) 1 mg/kg Route: Sub-Q; Site: abdomen; mr2 Outcome: 19:16 Decision to Hospitalize by Provider. cp 22:45 Admitted to Med/surg accompanied by nurse, via stretcher, with chart, Report called to ea Receiving nurse on second floor 22:45 Condition: stable 22:45 Instructed on the need for admit, Demonstrated understanding of instructions. 22:54 Patient left the ED. ea Signatures: Dispatcher [employer] EDWY Roberto Encinas PA PA Terra Ac [facility] French Chavez, RN RN jl7 Yamileth Merlos counts include 234 beds at the [facility] Allyssa Parham RN RN ea Peltier, Brian RN BRANDIN Demetri Ceja, RN RN mr2
--- NOTE | 2021-01-03 19:17 | EDPHYS ---
Physician Documentation [facility] Name: Emeli Perez Age: 65 yrs Sex: Female : 1955 Arrival Date: 01/03/2021 Time: 15:41 Bed 6 Private MD: ED Physician Harpreet Moreno HPI: 01/03 16:05 This 65 yrs old Black Female presents to ER via EMS with complaints of General Weakness.cp 16:05 Patient is a resident of [facility] and was found by staff this afternoon on the ground cp in bedroom. Patient unsure of events leading to her being found on ground. Historical: - Allergies: 15:41 Codeine; bp 15:41 Darvocet-N 100; bp 15:41 Morphine; bp 15:41 PENICILLINS; bp - PMHx: 15:41 Anxiety; Arthritis; Atrial Fib; CHF; diabetes mellitus; drop foot; Gout; bp Hyperlipidemia; Hypertension; kidney failure; - Immunization history:: Adult Immunizations up to date. - Social history:: Smoking status: Patient denies any tobacco usage or history of. ROS: 16:10 Constitutional: Negative for fever. cp 16:10 Cardiovascular: Negative for chest pain. cp 16:10 Respiratory: Negative for shortness of breath. 16:10 Abdomen/GI: Negative for vomiting, diarrhea. 16:10 Neuro: Positive for weakness. 16:10 All other systems are negative. Exam: 16:15 Constitutional: The patient appears in no acute distress, alert, awake, cp non-diaphoretic, non-toxic, well developed, well nourished, obese, smells of urine, smells of feces 16:15 Head/Face: Normocephalic, atraumatic. cp 16:15 Eyes: Periorbital structures: appear normal, Pupils: equal, round, and reactive to cp light and accomodation, Extraocular movements: intact throughout, Conjunctiva: normal, no exudate, no injection, Sclera: no appreciated abnormality, Lids and lashes: appear normal, bilaterally. 16:15 ENT: External ear(s): are unremarkable, Ear canal(s): are normal, clear, TM's: dullness, bilaterally, Nose: is normal, Mouth: Lips: dry, Oral mucosa: dry, Posterior pharynx: Airway: no evidence of obstruction, patent. 16:15 Neck: C-spine: vertebral tenderness, is not appreciated, crepitus, is not appreciated, ROM/movement: is normal, is supple, without pain, no range of motions limitations, no meningismus. 16:15 Chest/axilla: Inspection: normal, Palpation: is normal, no crepitus, no tenderness. 16:15 Cardiovascular: Rate: bradycardic, Rhythm: regular, Edema: is not appreciated, JVD: is not appreciated. 16:15 Respiratory: the patient does not display signs of respiratory distress, Respirations: normal, no use of accessory muscles, no retractions, labored breathing, is not present, Breath sounds: decreased breath sounds, that are mild, diffuse, stridor, is not appreciated, wheezing: is not appreciated. 16:15 Abdomen/GI: Inspection: abdomen appears normal, Bowel sounds: active, all quadrants, Palpation: abdomen is soft and non-tender, in all quadrants, Rectal exam: Stool: brown, guaiac negative. 16:15 Skin: large wound noted to inner upper thigh right leg with erythema, appears wound is through to dermal layer of skin. 16:15 Neuro: Orientation: to person, place, situation, Mentation: able to follow commands, slow to respond, Motor: moves all fours, general weakness with no focal deficits, Sensation: no obvious gross deficits. 17:52 ECG was reviewed by the Attending Physician. Vital Signs: 15:41 Weight 90.72 kg; bp 15:45 BP 126 / 51; Pulse 57; Resp 15; Temp 97; Pulse Ox 98% ; jl7 18:22 BP 153 / 74; Pulse 76; Resp 15 S; Pulse Ox 97% on R/A; jl7 MDM: 16:00 Differential diagnosis: bacterial infection, URI, pneumonia UTI, meningitis, sepsis, cp seizure, multiple trauma. 16:02 Patient medically screened. 19:00 Physician consultation: Maurice VAN was called at 19:00, was contacted at 19:00, regarding admission, to the telemetry unit. patient's condition. 19:05 Data reviewed: vital signs, nurses notes, lab test result(s), EKG, radiologic studies, cp CT scan, plain films. 19:05 Test interpretation: by ED physician or midlevel provider: ECG, plain radiologic cp studies. Response to treatment: the patient's symptoms have mildly improved after treatment, and as a result, I will admit patient. 01/03 15:58 Order name: Basic Metabolic Panel; Complete Time: 17:49 cp 01/03 17:50 Interpretation: Normal except: NA 148; CL 110; GLUC 174; BUN 42; CRE 1.56; GFR 40. cp 01/03 15:58 Order name: CBC with Diff; Complete Time: 19:00 cp 01/03 17:26 Interpretation: Normal except: WBC 21.10; RDW 17.4; KOTA% 83.2; LYM% 9.2; NEUT A 17.5; cp MNA 1.6. 01/03 15:58 Order name: LFT's; Complete Time: 17:49 cp 01/03 17:50 Interpretation: Normal except: ALK 125; ALB 3.0; GLOB 4.5; A/G 0.7. cp 01/03 15:58 Order name: Magnesium; Complete Time: 17:49 cp 01/03 15:58 Order name: NT PRO-BNP; Complete Time: 17:49 cp 01/03 17:51 Interpretation: Abnormal: NT PRO-BNP 3014. cp 01/03 15:58 Order name: PT-INR; Complete Time: 17:25 cp 01/03 15:58 Order name: Troponin (emerg Dept Use Only); Complete Time: 17:49 cp 01/03 17:50 Interpretation: Abnormal: TROPED 0.85. cp 01/03 15:58 Order name: CK; Complete Time: 17:49 cp 01/03 17:50 Interpretation: Abnormal: CPK 904. cp 01/03 15:58 Order name: Ptt, Activated; Complete Time: 17:25 cp 01/03 15:58 Order name: Lactate; Complete Time: 17:29 cp 01/03 17:29 Interpretation: Within normal limits: LAC 1.7. cp 01/03 15:58 Order name: Procalcitonin cp 01/03 15:58 Order name: Blood Culture Adult (2) cp 01/03 15:58 Order name: Urine Microscopic Only cp 01/03 17:36 Order name: Urine Dipstick-Ancillary; Complete Time: 17:51 EDMS 01/03 17:51 Interpretation: Normal except: UKET Trace; UBLD Trace-intact; UESTR 1+. cp 01/03 15:58 Order name: XRAY Chest (1 view); Complete Time: 17:09 cp 01/03 15:58 Order name: EKG; Complete Time: 15:58 01/03 15:58 Order name: Cardiac monitoring; Complete Time: 16:27 cp 01/03 17:15 Order name: Head C Spine Cap Wo Con; Complete Time: 17:49 EDAK 01/03 17:45 Order name: COVID-19 : Document "Date of Symptom Onset" if Symptomatic. 01/03 18:37 Order name: Manual Differential; Complete Time: 19:00 EDAK 01/03 19:04 Order name: Urine Culture EDAK 01/03 20:20 Order name: CONS Physician Consult EDAK 01/03 20:21 Order name: SARS-COV-2 RT PCR EDAK 01/03 15:58 Order name: EKG - Nurse/Tech; Complete Time: 16:28 01/03 15:58 Order name: IV Saline Lock; Complete Time: 17:13 01/03 15:58 Order name: Labs collected and sent; Complete Time: 17:13 01/03 15:58 Order name: O2 Per Protocol; Complete Time: 16:28 cp 01/03 15:58 Order name: O2 Sat Monitoring; Complete Time: 16:28 01/03 15:58 Order name: Mike; Complete Time: 16:27 01/03 15:58 Order name: Urine Dipstick-Ancillary (obtain specimen); Complete Time: 17:53 cp EC:52 Rate is 69 beats/min. Rhythm is regular. [place] interval is normal. QRS interval is normal. cp QT interval is normal. Interpreted by me. Reviewed by me. Administered Medications: 17:55 Not Given (Physician Discretion): NS 0.9% 1000 ml IV at 1000 ml/hr Per protocol; 1000 cp mL bolus 18:10 Drug: NS 0.9% 1000 ml Route: IV; Rate: 75 ml/hr; Site: left upper arm; jl7 18:22 Drug: Cefepime 1 grams Route: IVPB; Rate: 200 ml/hr; Infused Over: 30 mins; Site: left jl7 upper arm; 21:27 Drug: Lovenox (enoxaparin) 1 mg/kg Route: Sub-Q; Site: abdomen; mr2 Disposition: 19:20 Chart complete. 01/04 17:02 Co-signature as Attending Physician, Harpreet Moreno MD I agree with the assessment and kdr plan of care. Disposition Summary: 01/03/21 19:16 Hospitalization Ordered Hospitalization Status: Inpatient Admission cp Provider: Maurice Lr cp Location: Telemetry/MedSurg (Inpatient) cp Condition: Stable cp Problem: new cp Symptoms: have improved cp Bed/Room Type: Standard cp Room Assignment: 229(01/03/21 21:29) mw Diagnosis - Cellulitis of right lower limb cp - Non ST elevation AK cp Forms: - Medication Reconciliation Form cp - SBAR form cp Signatures: Dispatcher [employer] EDMS Sully Velez RN RN mw Rittger, Kevin, MD MD kdr Roberto Encinas PA PA cp Leal, Jahala RN RN jl7 Navi Doe RN RN bp Demetri Ceja RN RN mr2 Corrections: (The following items were deleted from the chart) 01/03 17:15 15:58 Head C Spine CAP W Con+CT.RAD.BRZ ordered. EDMS EDMS 19: 17:46 CORONAVIRUS ordered. EDMS EDMS 21:13 19:16 cp mw 21:29 21:13 429 mw mw 01/04 19:39 01/03 16:15 Constitutional: The patient appears alert, awake, non-diaphoretic, cp non-toxic, well developed, well nourished, cp
--- NOTE | 2021-01-03 21:49 | P.HP ---
Certification for Inpatient Patient admitted to: Inpatient With expected LOS: >2 Midnights Patient will require the following post-hospital care: None Practitioner: I am a practitioner with admitting privileges, knowledge of patient current condition, hospital course, and medical plan of care. Services: Services provided to patient in accordance with Admission requirements found in Title 42 Section 412.3 of the Code of Federal Regulations Patient History Date of Service: 01/03/21 Reason for admission: NSTEMI, cellulitis History of Present Illness: Ms. Perez is a 65 yo F with CHF, HTN, CKD, HLD, DM and afib who was found on the ground this afternoon unable to get up at her assisted living facility. She denies pain, chest pain, fever, nausea and vomiting. She does not remember the fall. She says she felt at her baseline before the fall. WBC 21, Na 148, cl 110, BUN 42, Cr 1.56, GFR 40, glu 174, CK 904, troponin 0.85, BNP 3014, procal 0.10. UA + for leukocyte esterase, ketones, blood, and WBCs. Rash on inner R leg suspicious for cellulitis. Allergies codeine [Codeine] Allergy (Verified 12/02/19 21:57) Itching/Hives/Rash morphine Allergy (Verified 12/02/19 21:57) Itching/Hives/Rash Penicillins Allergy (Verified 12/02/19 21:57) Itching/Hives/Rash Home Medications: ALPRAZolam [Alprazolam] 0.5 mg PO TID 12/03/18 Clonidine HCl [Catapres*] 0.2 mg PO DAILY 12/03/18 Gabapentin 300 mg PO QID 12/03/18 Hydrocodone/Acetaminophen [Hydrocodone-Acetamin 7.5-325] 1 tab PO QID 12/03/18 Simvastatin 40 mg PO BEDTIME 12/03/18 Furosemide [Lasix] 80 mg PO BID 12/02/19 Losartan Potassium 1 tab PO DAILY 12/02/19 Spironolactone 50 mg PO DAILY 12/02/19 carvediloL [Carvedilol] 1 tab PO BID 12/02/19 Insulin Glargine Human [Lantus*] 20 units SQ BID #1 vial 12/04/19 - Past Medical/Surgical History Diabetic: No -: Chronic renal disease, Nephrology-Dr. Uribe -: Gout -: Obesity -: CHF, Cardiology-Dr. Luque -: Hyperlipidemia -: Anemia -: Anxiety -: Chronic back pain -: Previous neck fusion -: Previous back fusion -: Back surgeries -: Cholecystectomy -: Appendectomy -: Hysterectomy -: Pacemaker/defibrillator Psychosocial/ Personal History: She is currently . Has 2 children. Has 9 grandchildren. She does not work. - Family History Father -: Heart disease Mother -: Heart disease - Social History Smoking Status: Unknown if ever smoked Alcohol use: No CD- Drugs: No Caffeine use: No Place of Residence: Home Review of Systems 10-point ROS is otherwise unremarkable General: Weakness, As per HPI Physical Examination - Physical Exam General: Alert, In no apparent distress HEENT: Atraumatic, PERRLA, Mucous membr. moist/pink, EOMI, Sclerae nonicteric Neck: Supple, 2+ carotid pulse no bruit, No LAD, Without JVD or thyroid abnormality Respiratory: Clear to auscultation bilaterally, Normal air movement Cardiovascular: Regular rate/rhythm, Normal S1 S2 Gastrointestinal: Normal bowel sounds, No tenderness Musculoskeletal: No tenderness Integumentary: Skin breakdown, Skin lesion, Tenderness/swelling, Erythema, Warmth Neurological: Normal tone, Sensation intact, Normal affect Lymphatics: No axilla or inguinal lymphadenopathy Urinary: Mike catheter - Studies Laboratory Data (last 24 hrs) 01/03/21 16:56: PT 13.8 H, INR 1.20, APTT 29.8 01/03/21 16:56: WBC 21.10 H*, Hgb 13.6, Hct 41.8, Plt Count 294 01/03/21 16:56: Sodium 148 H, Potassium 3.7, BUN 42 H, Creatinine 1.56 H, Glucose 174 H, Magnesium 2.7 H D, Total Bilirubin 0.8, AST 23, ALT 37, Alkaline Phosphatase 125 H Assessment and Plan - Problems (Diagnosis) (1) NSTEMI (non-ST elevated myocardial infarction) Current Visit: Yes Status: Acute (2) Cellulitis Current Visit: Yes Status: Acute Qualifiers: Site of cellulitis: extremity Site of cellulitis of extremity: lower extremity Laterality: right Qualified Code(s): L03.115 - Cellulitis of right lower limb (3) UTI (urinary tract infection) Current Visit: Yes Status: Acute Qualifiers: Urinary tract infection type: site unspecified Hematuria presence: with hematuria Qualified Code(s): N39.0 - Urinary tract infection, site not specified; R31.9 - Hematuria, unspecified (4) T2DM (type 2 diabetes mellitus) Current Visit: Yes Status: Chronic Qualifiers: 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: unspecified intermodal customer service insulin use status Diabetes mellitus complication status: with kidney complications Diabetes mellitus complication detail: with chronic kidney disease Chronic kidney disease stage 3 subtype: stage 3b (GFR 30-44) (5) Syncope and collapse Current Visit: No Status: Acute (6) CHF (congestive heart failure) Current Visit: No Status: Chronic Qualifiers: Qualified Code(s): I50.9 - Heart failure, unspecified (7) Chronic renal disease Current Visit: No Status: Chronic Qualifiers: Chronic kidney disease stage: stage 4 (severe) Qualified Code(s): N18.4 - Chronic kidney disease, stage 4 (severe) (8) Obesity Current Visit: No Status: Chronic Qualifiers: Obesity type: unspecified obesity type Qualified Code(s): E66.01 - Morbid (severe) obesity due to excess calories - Plan continue IV antibiotics, blood cultures pending continue gentle IVF hydration, continue to monitor kidney function, appears to be at baseline on telemetry, cardiology consulted, trend troponins, repeat EKG, orthostatic VS in the AM, ECHO pending daily ASA, BB, statin, PRN NTG as needed, full dose lovenox BID lipid and thyroid panel pending A1c pending, sliding scale insulin and accuchecks reconcile and continue home medications Discharge Plan: Home Plan to discharge in: 72 Hours - Advance Directives Does patient have a Living Will: No Does patient have a Durable POA for Healthcare: No - Code Status/Comfort Care Code Status Assessed: Yes (full code ) Critical Care: No Time Spent Managing Pts Care (In Minutes): 70
[2021-01-03] MEDS ORDERED: ACETAMINOPHEN 500 MG TAB PO PRN (23:31)
[2021-01-03] MEDS ORDERED: D5W 1,000 ML IV SCH (23:31)
[2021-01-03] MEDS ORDERED: ATORVASTATIN 40 MG TAB PO SCH (23:31)
[2021-01-03] MEDS: INSULIN -REGULAR HUMAN 50 UNIT/0.5 ML ML SQ SCH (23:31)
[2021-01-03] MEDS ORDERED: NITROGLYCERIN 0.4 MG/TAB SL PRN (23:31)
[2021-01-03 23:36] VITALS: BMI 40.1
[2021-01-04] MEDS: FENTANYL CITR 100 MCG/2 ML IV PRN ×2 (00:08→10:27)
[2021-01-04] MEDS: VANCOMYCIN 1.75 GM in NA CHLORIDE 0.9% 500 ML IVPB SCH (01:00)
[2021-01-04] MEDS ORDERED: VANCOMYCIN 1 GM/VIAL ONE (01:13)
[2021-01-04] MEDS ORDERED: NA CHLORIDE 0.9% 500 ML ONE (01:14)
[2021-01-04] MEDS ORDERED: HYDROMORPHONE HCL 0.5 MG/0.5 ML INJ IV PRN (02:16)
[2021-01-04] MEDS ORDERED: D50W 25 GM/50 ML SYRINGE IV PRN (02:21)
[2021-01-04] MEDS ORDERED: GLUCAGON 1 MG/VIAL IM PRN (02:21)
[2021-01-04] MEDS ORDERED: GABAPENTIN 300 MG CAP PO PRN (02:25)
[2021-01-04] MEDS ORDERED: levETIRAcetam 1,000 MG in NA CHLORIDE 0.9% 100 ML IV ONE (02:44)
[2021-01-04] MEDS ORDERED: LORazepam 2 MG/ML VIAL IV PRN (02:45)
[2021-01-04] MEDS: NACHLORIDE 0.45% 1,000 ML IV SCH ×2 (03:03→17:02)
[2021-01-04] MEDS: HYDROMORPHONE HCL 0.5 MG/0.5 ML INJ IV PRN ×3 (03:15→17:04)
[2021-01-04] MEDS ORDERED: LEVETIRACETAM 500 MG/5 ML VIAL IV ONE (03:48)
[2021-01-04] MEDS ORDERED: carvediloL 3.125 MG TAB PO SCH (06:00)
[2021-01-04] MEDS ORDERED: Pharmacy Consult 1 EA XX PRN (07:00)
[2021-01-04 07:23] LABS: Absolute Lymphocytes (CBC) 3.2 K/uL (0.7-4.9); Basophils % 0.6 % (0-1.3); Hematocrit 40.3 % (36.0-45.0); Lymphocytes % 18.5 % (15.3-44.8); MPV 9.9 fL (7.6-11.3)
[2021-01-04] MEDS: INSULIN -REGULAR HUMAN 50 UNIT/0.5 ML ML SQ SCH ×4 (07:30→20:23)
[2021-01-04 07:51] LABS: Albumin 2.5 g/dL (3.4-5.0); Bilirubin Total 0.8 mg/dL (0.2-1.0); Phosphorus 3.3 mg/dL (2.5-4.9); Protein, Total 6.6 g/dL (6.4-8.2); Thyroid Stimulating Hormone 0.044 uIU/mL (0.360-3.740)
[2021-01-04 07:58] LABS: Magnesium 2.4 mg/dL (1.8-2.4); Potassium 3.8 mmol/L (3.5-5.1)
[2021-01-04] MEDS: ENOXAPARIN 100 MG/ML SYR SQ SCH ×3 (08:20→20:22)
[2021-01-04] MEDS: cloNIDine HCL 0.1 MG TAB PO SCH (08:20)
[2021-01-04] MEDS: carvediloL 6.25 MG TAB PO SCH ×2 (08:20→20:15)
[2021-01-04] MEDS: ASPIRIN EC 81 MG TAB PO SCH (08:20)
[2021-01-04] MEDS: FUROSEMIDE 40 MG TABLET PO SCH ×2 (08:20→20:19)
[2021-01-04] MEDS: INSULIN GLARGINE 100 UNITS/ML SQ SCH ×2 (08:21→20:23)
[2021-01-04] MEDS ORDERED: GABAPENTIN 300 MG CAP PO SCH (09:00)
[2021-01-04] MEDS ORDERED: HYDROCODONE/APAP 7.5/325 MG TAB PO SCH (09:00)
[2021-01-04] MEDS ORDERED: FUROSEMIDE 20 MG/ 2ML VIAL IV SCH (09:00)
[2021-01-04] MEDS ORDERED: SPIRONOLACTONE 25 MG TABLET PO SCH (09:00)
[2021-01-04] MEDS ORDERED: ALPRAZOLAM 0.5 MG TABLET PO SCH (09:00)
[2021-01-04] MEDS: GABAPENTIN 300 MG CAP PO SCH ×2 (13:36→20:18)
--- NOTE | 2021-01-04 14:49 | P.PN ---
Subjective Date of Service: 01/04/21 Chief Complaint: NSTEMI, cellulitis There is a report patient had excruciating pain last night. Patient states the pain was in his left leg. She reports nonspecific neurology issue and therefore experience intermittent sharp pain in that leg. She was feeling better this morning. Urine culture is already growing Gram negative rods. Physical Examination - Vital Signs Temperature: 97.0 F Blood Pressure: 101/51 Pulse: 60 Respirations: 18 Pulse Ox (%): 99 - Physical Exam General: Alert, In no apparent distress, Oriented x3 HEENT: Mucous membr. moist/pink Neck: Supple, JVD not distended Respiratory: Clear to auscultation bilaterally, Normal air movement Cardiovascular: No edema, Regular rate/rhythm, Normal S1 S2 Gastrointestinal: Normal bowel sounds, Soft and benign, Non-distended, No tenderness Musculoskeletal: Other (Contracture in the right hand. Right footdrop.) Integumentary: Other (superficial clean wound in the left inner thigh, likely related to a blister) Neurological: Other (Patient moves all extremities, gross motor in all extremities 5/5. Right footdrop, right hand contracture.) - Studies Laboratory Data (last 24 hrs) 01/03/21 16:56: PT 13.8 H, INR 1.20, APTT 29.8 01/03/21 16:56: WBC 21.10 H*, Hgb 13.6, Hct 41.8, Plt Count 294 01/03/21 16:56: Sodium 148 H, Potassium 3.7, BUN 42 H, Creatinine 1.56 H, Glucose 174 H, Magnesium 2.7 H D, Total Bilirubin 0.8, AST 23, ALT 37, Alkaline Phosphatase 125 H Assessment And Plan - Current Problems (Diagnosis) (1) Cellulitis Current Visit: Yes Status: Acute Qualifiers: Site of cellulitis: extremity Site of cellulitis of extremity: lower extremity Laterality: right Qualified Code(s): L03.115 - Cellulitis of right lower limb (2) NSTEMI (non-ST elevated myocardial infarction) Current Visit: Yes Status: Acute (3) UTI (urinary tract infection) Current Visit: Yes Status: Acute Qualifiers: Urinary tract infection type: site unspecified Hematuria presence: with hematuria Qualified Code(s): N39.0 - Urinary tract infection, site not specified; R31.9 - Hematuria, unspecified (4) T2DM (type 2 diabetes mellitus) Current Visit: Yes Status: Chronic Qualifiers: 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 Cardiology consulted. Start full-dose Lovenox for NSTEMI. Aspirin, beta-dany, statins. Echocardiogram is requested. Acute renal failure almost resolved. Continue IV fluid. Watch for volume overload. Monitor renal function. Antibiotics for UTI. Follow urine culture Resume gabapentin for neuropathic pain. Fentanyl PRN. Not sure if patient had a seizure. She is on Keppra for seizure prophylaxis. Neurology consulted to evaluate. She is on antibiotics for cellulitis in the right groin. Wound care consulted for wound care. Blood pressure has not improved.
--- NOTE | 2021-01-04 15:49 | CON ---
Date of Consultation: 01/04/2021 Reason For Consultation: Elevated troponin. History Of Present Illness: This is a 65-year-old, history of CHF, hypertension, CKD, hyperlipidemia , diabetes, and atrial fibrillation. She was found on the ground. This is skilled level facility. She denies having any chest pain. No nausea, vomiting, shortness of breath, or cough. No other comp laints. Troponin was borderline at 0.85 and trending down. Past Medical History: As outlined above in the HPI. Medications: Refer to reconciliation sheet for detailed list. Allergies: CODEINE, MORPHINE, AND PENICILLIN. Family History: No premature coronary artery disease or cancer. Social History: She does not smoke or drink. Does not use any drugs. Review of Systems: All systems reviewed and they were negative except as mentioned in the HPI. Physical Examination: Vital Signs: Temperature is 97.0, pulse is 60, breathing at 18, blood pressure is 101/51, and satura ting 99%. General: Pleasant elderly female, in no apparent distress. Head and Neck: Pupils are equal and reactive to light. Intact eye movements. No JVD. No cervical lymphadenopathy. Neck: Supple. Thyroid is not enlarged. Lungs: Clear to auscultation bilaterally. No rhonchi, rales, or crackles. No accessory muscle use. Heart: Regular rate and rhythm. No extra sounds. Abdomen: Soft, nontender. Bowel sounds positive. No organomegaly. No masses or hernia. No rigidi ty or rebound. Extremities: No clubbing or cyanosis. Intact pulses. Skin: No rashes. Neurologic: Alert, awake, and oriented x3. No acute focal deficits appreciated. Investigations: Troponin peaked at 0.8 and down to 0.68. CK was 904. NT proBNP 3014. Assessment And Recommendations: Elevated troponin, likely due to demand ischemia. This patient had a heart catheterization with normal coronary arteries on September 05, 2019. Very unlikely that she has de veloped significant coronary artery disease to cause non-STEMI. This elevation in troponin could als o be due to a mild case of rhabdomyolysis. The fact that she is asymptomatic, I recommend no further cardiac workup at this point. If she stays over the weekend, then obtain an echocardiogram to come from on Wednesday, started on baby aspirin, and continue to monitor troponin after proper hydration. Thank you for the consult. /GOLDIE Voice ID: [id number] Report ID: [id number]
[2021-01-04] MEDS ORDERED: CEFEPIME 1 GM/VIAL ONE (20:14)
[2021-01-04] MEDS ORDERED: NA CHLORIDE 0.9% 100 ML ONE (20:19)
[2021-01-04] MEDS: ATORVASTATIN 20 MG TAB PO SCH (20:19)
[2021-01-04] MEDS ORDERED: CEFEPIME 2 GM VIAL IV SCH (21:00)
[2021-01-05] MEDS: HYDROMORPHONE HCL 0.5 MG/0.5 ML INJ IV PRN ×4 (04:04→22:30)
[2021-01-05] MEDS: NACHLORIDE 0.45% 1,000 ML IV SCH (05:01)
[2021-01-05 05:51] LABS: Basophils % 0.7 % (0-1.3); Hematocrit 32.9 % (36.0-45.0); MPV 9.8 fL (7.6-11.3)
[2021-01-05 06:08] LABS: Potassium 3.2 mmol/L (3.5-5.1)
[2021-01-05] MEDS: INSULIN -REGULAR HUMAN 50 UNIT/0.5 ML ML SQ SCH ×4 (07:30→21:00)
[2021-01-05] MEDS: INSULIN GLARGINE 100 UNITS/ML SQ SCH ×2 (09:00→22:32)
[2021-01-05] MEDS ORDERED: POTASSIUM 25 MEQ EFFERV TAB PO ONE (09:00)
[2021-01-05] MEDS: GABAPENTIN 300 MG CAP PO SCH ×3 (09:43→22:32)
[2021-01-05] MEDS: ASPIRIN EC 81 MG TAB PO SCH (09:43)
[2021-01-05] MEDS: carvediloL 6.25 MG TAB PO SCH (09:43)
[2021-01-05] MEDS: FUROSEMIDE 40 MG TABLET PO SCH ×2 (09:43→22:32)
[2021-01-05] MEDS: cloNIDine HCL 0.1 MG TAB PO SCH (09:43)
[2021-01-05] MEDS: ENOXAPARIN 100 MG/ML SYR SQ SCH (09:44)
[2021-01-05] MEDS: VANCOMYCIN 1.75 GM in NA CHLORIDE 0.9% 500 ML IVPB SCH (13:00)
[2021-01-05] MEDS ORDERED: VANCOMYCIN 1.75 GM in NA CHLORIDE 0.9% 500 ML IVPB SCH (14:00)
--- NOTE | 2021-01-05 14:27 | P.PN ---
Subjective Date of Service: 01/05/21 Chief Complaint: NSTEMI, cellulitis Patient has no new complaint today. She reports some pain in the right lower extremity. She denies any chest pain. Physical Examination - Vital Signs Temperature: 97.4 F Blood Pressure: 89/51 Pulse: 62 Respirations: 18 Pulse Ox (%): 99 - Physical Exam General: Alert, In no apparent distress, Oriented x3 HEENT: Mucous membr. moist/pink Neck: JVD not distended Respiratory: Clear to auscultation bilaterally, Normal air movement Cardiovascular: No edema, Regular rate/rhythm, Normal S1 S2 Gastrointestinal: Normal bowel sounds, Soft and benign, Non-distended, No tenderness Musculoskeletal: Other (Right hand contracture/Paralysis, right foot drop.) Integumentary: No rashes Neurological: Other (No gross motor deficit.) - Studies Microbiology Data (last 24 hrs): 01/03/21 17:33 Clean Catch Urine [place] Count - Final BETWEEN 10,000 & 100,000 CFU/ML 01/03/21 17:33 Clean Catch Urine - Final Klebsiella Pneumoniae Gram Neg Jose 01/03/21 16:50 Blood - Blood Gram Stain - Final Assessment And Plan - Current Problems (Diagnosis) (1) Cellulitis Current Visit: Yes Status: Acute Qualifiers: Site of cellulitis: extremity Site of cellulitis of extremity: lower extremity Laterality: right Qualified Code(s): L03.115 - Cellulitis of right lower limb (2) NSTEMI (non-ST elevated myocardial infarction) Current Visit: Yes Status: Acute (3) UTI (urinary tract infection) Current Visit: Yes Status: Acute Qualifiers: Urinary tract infection type: site unspecified Hematuria presence: with hematuria Qualified Code(s): N39.0 - Urinary tract infection, site not specified; R31.9 - Hematuria, unspecified (4) T2DM (type 2 diabetes mellitus) Current Visit: Yes Status: Chronic Qualifiers: Diabetes mellitus fpc insulin use: unspecified fpc insulin use status Diabetes mellitus complication status: with kidney complications Diabetes mellitus complication detail: with chronic kidney disease Chronic kidney disease stage 3 subtype: stage 3b (GFR 30-44) (5) Syncope and collapse Current Visit: No Status: Acute (6) Acute renal failure Current Visit: Yes Status: Acute (7) Neuropathic pain Current Visit: Yes Status: Acute (8) Accelerated hypertension Current Visit: Yes Status: Acute - Plan Troponin elevated but trended flat. Patient seen by cardiology. Elevated troponin deemed secondary to demand ischemia.. Complete full-dose Lovenox for NSTEMI today. Aspirin, beta-dany, statins. Echocardiogram is pending Acute renal failure resolved. Discontinue IV fluid. Urine culture: Klebsiella. Change antibiotics to IV Rocephin. Vancomycin discontinued. Continue gabapentin for neuropathic pain. Fentanyl PRN. Not sure if patient had a seizure. She is on Keppra for seizure prophylaxis. Neurology consulted to evaluate. She is on antibiotics for cellulitis in the right groin. Wound care consulted for wound care. Blood pressure is borderline low. Discontinue Coreg. Continue to monitor BP.
[2021-01-05] MEDS: ATORVASTATIN 20 MG TAB PO SCH (22:32)
[2021-01-06] MEDS: ALPRAZOLAM 0.5 MG TABLET PO PRN ×2 (00:54→21:52)
[2021-01-06] MEDS: HYDROCODONE/APAP 7.5/325 MG TAB PO PRN ×3 (00:55→21:44)
[2021-01-06] MEDS: HYDROMORPHONE HCL 0.5 MG/0.5 ML INJ IV PRN ×5 (02:46→23:34)
[2021-01-06 05:27] LABS: Absolute Lymphocytes (CBC) 4.6 K/uL (0.7-4.9); Basophils % 0.6 % (0-1.3); Hematocrit 33.4 % (36.0-45.0); Lymphocytes % 33.4 % (15.3-44.8); MPV 9.8 fL (7.6-11.3); RBC Red Blood Cell Count 3.73 M/uL (3.86-4.86)
[2021-01-06 05:36] LABS: Potassium 3.6 mmol/L (3.5-5.1)
[2021-01-06] MEDS: INSULIN -REGULAR HUMAN 50 UNIT/0.5 ML ML SQ SCH ×4 (07:30→21:45)
[2021-01-06] MEDS: FENTANYL CITR 100 MCG/2 ML IV PRN ×2 (08:20→20:32)
[2021-01-06] MEDS: cloNIDine HCL 0.1 MG TAB PO SCH (08:28)
[2021-01-06] MEDS: FUROSEMIDE 40 MG TABLET PO SCH ×2 (08:29→20:46)
[2021-01-06] MEDS: ASPIRIN EC 81 MG TAB PO SCH (08:29)
[2021-01-06] MEDS: GABAPENTIN 300 MG CAP PO SCH ×3 (08:29→20:41)
[2021-01-06] MEDS ORDERED: POTASSIUM CL SA 10 MEQ TAB PO ONE (09:00)
[2021-01-06] MEDS ORDERED: CEFTRIAXONE 1 GM/NS 50 ML 1 GM/50 ML BAG IV SCH (09:00)
[2021-01-06] MEDS: INSULIN GLARGINE 100 UNITS/ML SQ SCH ×2 (09:00→21:45)
--- NOTE | 2021-01-06 12:19 | RAD REPORT ---
EXAM DESCRIPTION: Shoulder 1 View CLINICAL HISTORY: Fall COMPARISON: None. FINDINGS: Single lateral view of the left shoulder. No abnormal or dislocation. Osteopenia. Degenera tive change of the acromioclavicular joint. Left chest wall multilead generator. Anterior cervical sp ine fixation. IMPRESSION: 1. No definite shoulder dislocation. Evaluation for fracture is suboptimal due to lack o f anterior view. Repeat imaging when possible recommended. Electronically signed by: Robbie Pastrana 01/04/2021 3:43 AM CDT Due to temporary technical issues with the PACS/Fluency reporting system, reports are being signed by the in house radiologist without review as a courtesy to ensure prompt reporting. The interpreting r adiologist is fully responsible for the content of the report.
--- NOTE | 2021-01-06 12:21 | RAD REPORT ---
EXAM DESCRIPTION: Foot Left 2 View (accession [id number]), Tib Fib Left (accession [id number]) CLINICAL HISTORY: 65 years Female, fall COMPARISON: None. FINDINGS: Radiographs of the left foot are limited due to positioning. No evidence of an acute fracture of the left tibia/fibula or left foot. No dislocation. Degenerative osteophyte formation and joint space narrowing of the left knee noted. There is a 6 mm rounded lucenc y within the distal tibial epiphysis. There is subcutaneous edema. IMPRESSION: 1. No evidence of an acute fracture left tibia or fibula. 2. No evidence of an acute fracture of the left foot within the limits of the study. 3. Nonspecific small rounded lucency in the distal left tibial epiphysis which could represent a smal l lytic lesion and can be followed up as appropriate. Electronically signed by: Azael Giordano MD 01/04/2021 3:47 AM CDT Due to temporary technical issues with the PACS/Fluency reporting system, reports are being signed by the in house radiologist without review as a courtesy to ensure prompt reporting. The interpreting r adiologist is fully responsible for the content of the report.
--- NOTE | 2021-01-06 12:23 | RAD REPORT ---
EXAM DESCRIPTION: Foot Left 2 View (accession [id number]), Tib Fib Left (accession [id number]) CLINICAL HISTORY: 65 years Female, fall COMPARISON: None. FINDINGS: Radiographs of the left foot are limited due to positioning. No evidence of an acute fracture of the left tibia/fibula or left foot. No dislocation. Degenerative osteophyte formation and joint space narrowing of the left knee noted. There is a 6 mm rounded lucenc y within the distal tibial epiphysis. There is subcutaneous edema. IMPRESSION: 1. No evidence of an acute fracture left tibia or fibula. 2. No evidence of an acute fracture of the left foot within the limits of the study. 3. Nonspecific small rounded lucency in the distal left tibial epiphysis which could represent a smal l lytic lesion and can be followed up as appropriate. Electronically signed by: Azael Giordano MD 01/04/2021 3:47 AM CDT Due to temporary technical issues with the PACS/Fluency reporting system, reports are being signed by the in house radiologist without review as a courtesy to ensure prompt reporting. The interpreting r adiologist is fully responsible for the content of the report.
--- NOTE | 2021-01-06 14:59 | P.PN ---
Subjective Date of Service: 01/06/21 Chief Complaint: NSTEMI, cellulitis Patient reports an episode of excruciating pain in the left leg. She is eating well. She has no chest pain or shortness of breath. Physical Examination - Vital Signs Temperature: 97.2 F Blood Pressure: 143/65 Pulse: 67 Respirations: 18 Pulse Ox (%): 97 - Physical Exam General: Alert, In no apparent distress HEENT: Mucous membr. moist/pink Neck: JVD not distended Respiratory: Clear to auscultation bilaterally, Normal air movement Cardiovascular: No edema, Regular rate/rhythm, Normal S1 S2 Gastrointestinal: Soft and benign, Non-distended Musculoskeletal: No swelling Integumentary: No rashes - Studies Microbiology Data (last 24 hrs): 01/03/21 16:50 Blood - Blood Gram Stain - Final Assessment And Plan - Current Problems (Diagnosis) (1) Cellulitis Current Visit: Yes Status: Acute Qualifiers: Site of cellulitis: extremity Site of cellulitis of extremity: lower extremity Laterality: right Qualified Code(s): L03.115 - Cellulitis of right lower limb (2) NSTEMI (non-ST elevated myocardial infarction) Current Visit: Yes Status: Acute (3) UTI (urinary tract infection) Current Visit: Yes Status: Acute Qualifiers: Urinary tract infection type: site unspecified Hematuria presence: with hematuria Qualified Code(s): N39.0 - Urinary tract infection, site not specified; R31.9 - Hematuria, unspecified (4) T2DM (type 2 diabetes mellitus) Current Visit: Yes Status: Chronic Qualifiers: Diabetes mellitus sports complex attendant insulin use: unspecified residential insulin use status Diabetes mellitus complication status: with kidney complications Diabetes mellitus complication detail: with chronic kidney disease Chronic kidney disease stage 3 subtype: stage 3b (GFR 30-44) (5) Syncope and collapse Current Visit: No Status: Acute (6) Acute renal failure Current Visit: Yes Status: Acute (7) Neuropathic pain Current Visit: Yes Status: Acute (8) Accelerated hypertension Current Visit: Yes Status: Acute - Plan Troponin elevated but trended flat. Patient seen by cardiology. Elevated troponin deemed secondary to demand ischemia.. Completed full-dose Lovenox for NSTEMI. Continue Aspirin, beta-dany, statins. Echocardiogram result is pending Acute renal failure resolved. IV fluid discontinued. Urine culture: Klebsiella. Continue IV Rocephin. Vancomycin discontinued. Continue gabapentin for neuropathic pain. Case discussed with neurology-Dr. Contreras. Gabapentin dose increased. Fentanyl PRN. Not sure if patient had a seizure. She is on Keppra for seizure prophylaxis. Neurology to see patient. She is on antibiotics for cellulitis in the right groin. Wound care input appreciated. BP is slightly elevated. Continue to monitor BP. Borderline bradycardic. Continue to hold Coreg. PT to evaluate.
--- NOTE | 2021-01-06 16:24 | ECHO ---
HEIGHT: 5 ft 0 in WEIGHT: 205 lb 9.6 oz DATE OF STUDY: 01/06/[address]: Maurice Lr 2-DIMENSIONAL: YES M.MODE: YES DOPPLER: YES COLOR FLOW: YES TDS: NO PORTABLE: NO DEFINITY: NO BUBBLE STUDY: NO DIAGNOSIS: CONGESTIVE HEART FAILURE CARDIAC HISTORY: CATHERIZATION: SURGERY: PROSTHETIC VALVE: PACEMAKER: MEASUREMENTS (cm) DIASTOLIC (NORMALS) SYSTOLIC (NORMALS) IVSd 1.7 (0.6-1.2) LA Diam 3.7 (1.9-4.0) LVEF 55-60% LVIDd 4.8 (3.5-5.7) LVIDs 3.6 (2.0-3.5) %FS 25% LVPWd 1.4 (0.6-1.2) Ao Diam 3.0 (2.0-3.7) 2 DIMENSIONAL ASSESSMENT: RIGHT ATRIUM: NORMAL LEFT ATRIUM: NORMAL RIGHT VENTRICLE: NORMAL LEFT VENTRICLE: LEFT VENTRICULAR HYPERTROPHY TRICUSPID VALVE: NORMAL MITRAL VALVE: NORMAL PULMONIC VALVE: NORMAL AORTIC VALVE: NORMAL PERICARDIAL EFFUSION: NONE AORTIC ROOT: NORMAL LEFT VENTRICULAR WALL MOTION: NORMAL DOPPLER/COLOR FLOW: NORMAL COMMENTS: NORMAL LEFT VENTRICULAR EJECTION FRACTION 55-60%. MODERATE LEFT VENTRICULAR HYPERTROPHY. NORMAL WALL MOTION. DIASTOLIC DYSFUNCTION. TECHNOLOGIST: Carroll SAINZ
[2021-01-06] MEDS: ATORVASTATIN 20 MG TAB PO SCH (20:41)
[2021-01-06] MEDS: DULOXETINE 30 MG CAP PO SCH (20:41)
[2021-01-06] MEDS ORDERED: NS 0.9% VIAL 10 ML ONE (21:02)
--- NOTE | 2021-01-06 21:27 | CON ---
Reason For Consultation: Consultation was called because of weakness in extremities with right foot and wrist drop and severe radiating pain from the lower back into the left more than right lower extr emity. History Of Present Illness: Ms. Perez is a 65-year-old patient with atrial fibrillation, anxiety , congestive heart failure, diabetes mellitus, dyslipidemia, hypertension, and chronic kidney failure , who has also long-standing history of multiple neuropathies involving her extremities, legs and arm s for at least 15 or more years. She first had significant pain in the lower back and saw Dr. Ayanna bird who placed 2 pain stimulators that did not help the patient's pain and she also began to develop w eakness in the foot as well. Several years later developed more weakness in the hands proximally and has had involvement of the left brachial plexus as identified by a neurologist in [place]. This is a few years ago as well. Despite her weakness in the extremities, she was able to mobilize on her own independently, still drive and was living alone independently. She was at [facility] when over weekend was found by staff on the floor and the patient said she tried to get up and could not. Sh e was brought to [facility] with significant difficulty moving and tremendous pain in the lower back that required morphine and multiple medications to manage. At [facility], her trauma series showed no fractures in the skull, neck, chest, and abdomen. There was no acute is chemic or hemorrhagic change identified. Her x-ray of the foot showed no evidence of acute fracture of the tibia or fibula and again no fractures in the foot identified. Chest x-ray showed no acute ca rdiopulmonary abnormalities. She did have a cardiac pacemaker and has had ACDF in the cervical spine . Past Medical History: As noted. Past Medical History: As indicated. Allergies: CODEINE, DARVOCET, MORPHINE, PENICILLIN. Family History: Noncontributory. Review of Systems: As noted, she has had significant weakness in both hands and feet. Significant pain in the lower linda k. Difficulty with swallowing and articulation. Otherwise, she does have a large wound on the upper thigh on the right area and through the dermis and in the perineal region and mons region as well. Physical Examination: Vital Signs: Blood pressure 127/91, pulse 73, respiratory rate 16, temperature 97.2, O2 saturation 9 8%. Weight 205 pounds, height 5 feet, BMI 40.2. General: Ms. Perez is resting in bed. She is currently in no significant pain. She is eating l unch. HEENT: She appears normocephalic and atraumatic. Sclerae anicteric. Oropharynx is pink and moist. Neck: Supple. Chest: Clear. Heart: Regular. Extremities: Her hands show evidence of chronic atrophy and denervation with ulnar deviation of the fingers and they are held weakly in place without much flexion or extension of her fingers. Her feet show evidence of high arch foot with hammer like toes and decreased mobilization of the feet on the left side. Very little movement on the right. Minimal movement noted with both flexion and extensio n. Otherwise, she has again movement. Neurologic: On cranial nerves 2 through 12, mild diffuse facial muscle weakness, but equal excursion s on smiling. Sensation intact in the face. Tongue and palate appear midline. 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 She is we marci distally versus proximally upper extremity on the right, also weaker distally versus proximally. Sensory exam decreased to light touch in a stocking-glove fashion in the legs and arms. Reflexes a re absent in upper and lower extremities. Gait, she does require a walker with a seat belt. She did ambulate with the physical therapist, bed mod to maximum assistance, less than 10 feet with a yany g walker. Assessment: Ms. 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 She also had ACDF suggestive of cord related compression with decompress ion and has had lower back surgeries with pain stimulator removed. Her lower back and ext remity pain have been refractory to multiple treatment modalities over many years. Plan: We will increase gabapentin dosage and this was communicated with the hospitalist to 1200 mg i n morning, 600 mg at noon, and 1200 mg at night and duloxetine at 20 mg daily dosage. Continue with addressing other comorbid conditions including Lipitor 20 mg at bedtime, aspirin 81 mg daily. The pa nida may be a good candidate for acute inpatient rehabilitation to gently improve her ability to tra nsfer, maintain her activities of daily living, and try to be as independent as possible. Once disch arged, she will follow up with her neurologist in [place]. MARC/GOLDIE Voice ID: [id number] Report ID: [id number]
[2021-01-06] MEDS: ONDANSETRON 4 MG/2 ML VIAL IV PRN (23:33)
[2021-01-07] MEDS: FENTANYL CITR 100 MCG/2 ML IV PRN ×6 (03:05→23:57)
[2021-01-07] MEDS: HYDROMORPHONE HCL 0.5 MG/0.5 ML INJ IV PRN ×2 (04:53→09:15)
--- NOTE | 2021-01-07 06:13 | P.PN ---
Subjective Date of Service: 01/07/21 Chief Complaint: NSTEMI, cellulitis Subjective: Other (severe pain this morning, hypertensive. pain most severe in left lower leg) Review of Systems 10-point ROS is otherwise unremarkable Physical Examination - Vital Signs Temperature: 98.3 F Blood Pressure: 148/65 Pulse: 60 Respirations: 18 Pulse Ox (%): 98 - Studies Microbiology Data (last 24 hrs): 01/03/21 16:50 Blood - Blood Gram Stain - Final Assessment & Plan Physician Review Additional Text: Physical Exam General: Alert, in moderate distress HEENT: Normal conjunctiva, sclera anicteric Respiratory: Clear to auscultation bilaterally, Normal air movement Cardiovascular: No edema, Regular rate/rhythm Gastrointestinal: Soft and benign, Non-distended MSK: No pain on palpation of spinal processes Integumentary: Right thigh cellulitis Problem list Right lower extremity cellulitis Acute on chronic neuropathic pain NSTEMI UTI, acute cystitis DM2, [id number] Syncope Acute renal failure Hypertension Troponin elevated but trended flat. Patient seen by cardiology. Elevated troponin deemed secondary to demand ischemia Completed full-dose Lovenox for NSTEMI. Continue Aspirin, beta-dany, statins. Echocardiogram: Moderate diastolic dysfunction Acute renal failure resolved. IV fluid discontinued. Urine culture: Klebsiella. Wound culture: Enterococcus. Change antibiotics to Levaquin Continue gabapentin for neuropathic pain. Case discussed with neurology-Dr. Contreras. Gabapentin dose increased. Fentanyl PRN. Not sure if patient had a seizure. She is on Keppra for seizure prophylaxis. She is on antibiotics for cellulitis in the right groin. Wound care input appreciated. BP is slightly elevated. Continue to monitor BP. Borderline bradycardic. Continue to hold Coreg. recommendation for inpatient rehab from PT and neurology. patient agreeable if pain is better controlled goal to wean off opioids, especially IV. increased gabapentin 01/07, added lidocaine patch as well Dispo: anticipate hospitalization > 2 days Time Spent Managing Pts Care (In Minutes): 35
[2021-01-07] MEDS: INSULIN -REGULAR HUMAN 50 UNIT/0.5 ML ML SQ SCH ×4 (07:30→20:46)
[2021-01-07] MEDS: FUROSEMIDE 40 MG TABLET PO SCH ×2 (08:36→20:02)
[2021-01-07] MEDS: levoFLOXacin 750 MG TAB PO SCH (08:36)
[2021-01-07] MEDS: cloNIDine HCL 0.1 MG TAB PO SCH (08:37)
[2021-01-07] MEDS: ASPIRIN EC 81 MG TAB PO SCH (08:37)
[2021-01-07] MEDS: INSULIN GLARGINE 100 UNITS/ML SQ SCH ×2 (09:00→20:09)
[2021-01-07] MEDS: GABAPENTIN 300 MG CAP PO SCH ×2 (09:15→20:01)
[2021-01-07] MEDS ORDERED: HYDRALAZINE HCL 20 MG/ML VIAL IV ONE (10:59)
[2021-01-07] MEDS ORDERED: HYDROMORPHONE HCL 1 MG/ML INJ IV PRN (11:02)
[2021-01-07] MEDS ORDERED: GABAPENTIN 300 MG CAP PO SCH (12:00)
[2021-01-07] MEDS: MEDIHONEY 44 ML TOPICAL TUBE TOP SCH (13:43)
[2021-01-07] MEDS: LIDOCAINE 4% PATCH TOP SCH (15:53)
[2021-01-07] MEDS: HYDROMORPHONE HCL 1 MG/ML INJ IV PRN ×2 (17:36→21:42)
[2021-01-07] MEDS: DULOXETINE 30 MG CAP PO SCH (20:02)
[2021-01-07] MEDS: ATORVASTATIN 20 MG TAB PO SCH (20:02)
[2021-01-08] MEDS: HYDROMORPHONE HCL 1 MG/ML INJ IV PRN ×3 (01:58→12:09)
[2021-01-08] MEDS: ONDANSETRON 4 MG/2 ML VIAL IV PRN (03:42)
[2021-01-08] MEDS: FENTANYL CITR 100 MCG/2 ML IV PRN ×4 (03:52→23:42)
[2021-01-08 05:48] LABS: Absolute Lymphocytes (CBC) 2.9 K/uL (0.7-4.9); Basophils % 0.5 % (0-1.3); Lymphocytes % 19.5 % (15.3-44.8); MPV 9.2 fL (7.6-11.3); RBC Red Blood Cell Count 3.93 M/uL (3.86-4.86)
[2021-01-08 05:53] LABS: Magnesium 1.8 mg/dL (1.8-2.4); Potassium 3.8 mmol/L (3.5-5.1)
--- NOTE | 2021-01-08 06:07 | PN ---
Date of Progress Note: 01/06/2021 The patient was seen by Dr. Carter for elevated troponin that he thought was secondary to demand isc hemia. Her troponin is trending down. Echocardiogram that was done showed perfectly normal ejection fraction. No wall motion abnormalities. Ejection fraction 55% to 60%, some left ventricular hypert rophy. Again, we think that her troponin elevation is secondary to the demand ischemia, but no reaso n to do any further cardiac workup at this point. She has a history of CHF that is diastolic, hypert ension, chronic kidney disease, paroxysmal atrial fibrillation, diabetes, hyperlipidemia. We will co ntinue her present regimen for now. We will see her as needed. JARON/GOLDIE Voice ID: [id number] Report ID: [id number]
--- NOTE | 2021-01-08 06:22 | P.PN ---
Subjective Date of Service: 01/08/21 Chief Complaint: NSTEMI, cellulitis Subjective: No new changes (maybe slight improvement. still with intermittent severe LLE pains. states only dilaudid is helping. no new complaints/issues) Review of Systems 10-point ROS is otherwise unremarkable Physical Examination - Vital Signs Temperature: 97.5 F Blood Pressure: 168/66 Pulse: 66 Respirations: 18 Pulse Ox (%): 95 Assessment & Plan Physician Review Additional Text: Physical Exam General: Alert, appears uncomfortable HEENT: Normal conjunctiva, sclera anicteric Respiratory: Clear to auscultation bilaterally, Normal air movement Cardiovascular: No edema, Regular rate/rhythm Gastrointestinal: Soft and benign, Non-distended MSK: No pain on palpation of spinal processes, no L knee tenderness/swelling, no tenderness with palpation of LLE Integumentary: Right thigh with superficial skin tear / erythema Problem list Right lower extremity cellulitis / skin tear Acute on chronic neuropathic pain NSTEMI UTI, acute cystitis DM2, [id number] Syncope Acute renal failure, resolved Hypertension Troponin elevated but trended flat. Patient seen by cardiology. Elevated troponin deemed secondary to demand ischemia Completed full-dose Lovenox for NSTEMI. Continue Aspirin, beta-dany, statins. Echocardiogram: Moderate diastolic dysfunction Acute renal failure resolved. IV fluid discontinued. Urine culture: Klebsiella. Wound culture: Enterococcus. Changed antibiotics to Levaquin on 01/07 Continue gabapentin for neuropathic pain. Case discussed with neurology-Dr. Contreras. Gabapentin dose increased initially but then decreased (renally dosed) This pain is likely to be chronic, recommended transition to PO dilaudid, working towards discharge. patient will need f/u with her pain doctor She is on antibiotics for cellulitis in the right groin. Wound care input appreciated. BP is slightly elevated. Continue to monitor BP. Borderline bradycardic. Continue to hold Coreg. recommendation for inpatient rehab from PT and neurology. patient agreeable if pain is better controlled goal to wean off IV narcotics. increased gabapentin 01/07 then had to be decreased due to renal dosing, added lidocaine patch on 01/07 switch IV dilaudid to PO on 01/08 Dispo: anticipate discharge in ~2 days Time Spent Managing Pts Care (In Minutes): 35
[2021-01-08] MEDS: INSULIN -REGULAR HUMAN 50 UNIT/0.5 ML ML SQ SCH ×4 (07:30→21:00)
[2021-01-08] MEDS ORDERED: POTASSIUM CL SA 10 MEQ TAB PO ONE (08:00)
[2021-01-08] MEDS: LIDOCAINE 4% PATCH TOP SCH (08:26)
[2021-01-08] MEDS: ASPIRIN EC 81 MG TAB PO SCH (08:27)
[2021-01-08] MEDS: INSULIN GLARGINE 100 UNITS/ML SQ SCH ×2 (08:41→21:00)
[2021-01-08] MEDS: FUROSEMIDE 40 MG TABLET PO SCH ×2 (08:41→21:17)
[2021-01-08] MEDS: MEDIHONEY 44 ML TOPICAL TUBE TOP SCH (08:42)
[2021-01-08] MEDS: cloNIDine HCL 0.1 MG TAB PO SCH (08:43)
[2021-01-08] MEDS ORDERED: GABAPENTIN 300 MG CAP PO SCH (09:00)
[2021-01-08] MEDS: HYDROMORPHONE ORAL 2 MG TAB PO PRN ×2 (15:23→19:40)
[2021-01-08] MEDS: GABAPENTIN 300 MG CAP PO SCH ×2 (15:24→21:17)
[2021-01-08] MEDS: DULOXETINE 30 MG CAP PO SCH (21:18)
[2021-01-08] MEDS: ATORVASTATIN 20 MG TAB PO SCH (21:18)
--- NOTE | 2021-01-08 21:27 | RAD REPORT ---
EXAM DESCRIPTION: CT - Tib Fib Left Wo Con - 01/08/2021 8:36 pm CLINICAL HISTORY: L lower leg - severe pain, s/p fall, eval lucency Fall, pain COMPARISON: Tib Fib Left dated 01/04/2021 FINDINGS: A small 5 mm benign geode seen distal tibia, correlating with recent plain film finding. N o worrisome bone lesions are present. No fracture or dislocation seen. No soft tissue mass or hematom a. IMPRESSION: No worrisome pathologic process identified. All CT scans are performed using dose optimization technique as appropriate and may include automated exposure control or mA/KV adjustment according to patient size.
[2021-01-08] MEDS: HYDROCODONE/APAP 7.5/325 MG TAB PO PRN (21:33)
[2021-01-09] MEDS: HYDROMORPHONE ORAL 2 MG TAB PO PRN ×3 (01:57→14:10)
[2021-01-09] MEDS ORDERED: FENTANYL CITR 100 MCG/2 ML IV ONE (02:37)
[2021-01-09] MEDS: HYDROCODONE/APAP 7.5/325 MG TAB PO PRN ×2 (03:48→11:15)
[2021-01-09] MEDS: ALPRAZOLAM 0.5 MG TABLET PO PRN (03:49)
[2021-01-09 06:17] LABS: Absolute Lymphocytes (CBC) 2.9 K/uL (0.7-4.9); Basophils % 0.7 % (0-1.3); Hematocrit 34.8 % (36.0-45.0); Lymphocytes % 22.1 % (15.3-44.8); MPV 9.2 fL (7.6-11.3)
[2021-01-09 07:08] LABS: Potassium 3.9 mmol/L (3.5-5.1)
[2021-01-09 07:12] LABS: Magnesium 1.7 mg/dL (1.8-2.4)
[2021-01-09] MEDS: INSULIN -REGULAR HUMAN 50 UNIT/0.5 ML ML SQ SCH ×2 (07:30→11:30)
[2021-01-09] MEDS: FENTANYL CITR 100 MCG/2 ML IV PRN (07:32)
[2021-01-09 08:47] VITALS: O2SAT 97
[2021-01-09] MEDS: LIDOCAINE 4% PATCH TOP SCH (09:00)
[2021-01-09] MEDS: MEDIHONEY 44 ML TOPICAL TUBE TOP SCH (09:00)
[2021-01-09] MEDS: INSULIN GLARGINE 100 UNITS/ML SQ SCH (09:00)
[2021-01-09] MEDS ORDERED: MAGNESIUM SULFATE 1 gm IVPB 1 GM/100 ML BAG IV ONE (09:00)
[2021-01-09] MEDS ORDERED: POTASSIUM CL SA 10 MEQ TAB PO ONE (09:00)
[2021-01-09] MEDS: GABAPENTIN 300 MG CAP PO SCH ×2 (11:13→14:11)
[2021-01-09] MEDS: levoFLOXacin 750 MG TAB PO SCH (11:14)
[2021-01-09] MEDS: ASPIRIN EC 81 MG TAB PO SCH (11:14)
[2021-01-09] MEDS: FUROSEMIDE 40 MG TABLET PO SCH (11:14)
[2021-01-09] MEDS: cloNIDine HCL 0.1 MG TAB PO SCH (11:14)
--- NOTE | 2021-01-09 11:42 | P.CNS ---
Date of Consult: 01/09/21 Reason for Consult: CKD Requesting Physician: Joshua Canas Chief Complaint: NSTEMI, cellulitis History of Present Illness: Ms. Perez is a 65 yo F with CHF, HTN, CKD, HLD, DM and afib who was found on the ground this afternoon unable to get up at her assisted living facility. She denies pain, chest pain, fever, nausea and vomiting. She does not remember the fall. She says she felt at her baseline before the fall. 16:05 This 65 yrs old Black Female presents to ER via EMS with complaints of General Weakness.cp 16:05 Patient is a resident of [facility] and was found by staff this afternoon on the ground cp in bedroom. Patient unsure of events leading to her being found on ground. Allergies codeine [Codeine] Allergy (Verified 12/02/19 21:57) Itching/Hives/Rash morphine Allergy (Verified 12/02/19 21:57) Itching/Hives/Rash Penicillins Allergy (Verified 12/02/19 21:57) Itching/Hives/Rash Home medications list reviewed: Yes Home Medications: ALPRAZolam [Alprazolam] 0.5 mg PO TID 12/03/18 Clonidine HCl [Catapres*] 0.2 mg PO DAILY 12/03/18 Hydrocodone/Acetaminophen [Hydrocodone-Acetamin 7.5-325] 1 tab PO QID 12/03/18 Simvastatin 40 mg PO BEDTIME 12/03/18 Furosemide [Lasix] 40 mg PO BID 12/02/19 Insulin Glargine Human [Lantus*] 40 units SQ BID 01/04/21 Carvedilol [Coreg] 3.125 mg PO BID 30 Days #60 tablet 01/09/21 Duloxetine HCl [Cymbalta] 30 mg PO BEDTIME 30 Days #30 cap 01/09/21 Gabapentin [Neurontin] 600 mg PO TID 30 Days #90 tablet 01/09/21 Hydromorphone [Dilaudid*] 2 mg PO Q6H PRN 3 Days #10 tab 01/09/21 Medihoney [Medihoney Woundcare Gel*] 1 appl TOP DAILY 30 Days #1 tube 01/09/21 levoFLOXacin [Levaquin*] 750 mg PO Q48H 8 Days #4 tab 01/09/21 - Past Medical/Surgical History Diabetic: Yes -: Chronic renal disease, Nephrology-Dr. Uribe -: Gout -: Obesity -: CHF, Cardiology-Dr. Luque -: Hyperlipidemia -: Anemia -: Anxiety -: Chronic back pain -: Previous neck fusion -: Previous back fusion -: Back surgeries -: Cholecystectomy -: Appendectomy -: Hysterectomy -: Pacemaker/defibrillator Psychosocial/ Personal History: She is currently . Has 2 children. Has 9 grandchildren. She does not work. - Family History Father Medical History: Heart disease Mother Medical History: Heart disease - Social History Smoking Status: Current every day smoker Alcohol use: No CD- Drugs: No Caffeine use: No Place of Residence: Home Review of Systems 10-point ROS is otherwise unremarkable General: Weakness, Malaise Neurological: Weakness, Incoordination Physical Examination Temp Pulse Resp BP Pulse Ox 97.8 F 66 19 139/68 99 01/09/21 08:00 01/09/21 11:14 01/09/21 08:00 01/09/21 11:14 01/09/21 08:00 General: In no apparent distress, Cooperative HEENT: Atraumatic Neck: Supple Respiratory: Clear to auscultation bilaterally Cardiovascular: Regular rate/rhythm Gastrointestinal: Soft and benign, Non-distended Musculoskeletal: No clubbing, Contractures Integumentary: No rashes, No cyanosis Neurological: Normal speech Blood work reviewed in the chart. Imagings Data: COMMENTS: NORMAL LEFT VENTRICULAR EJECTION FRACTION 55-60%. MODERATE LEFT VENTRICULAR HYPERTROPHY. NORMAL WALL MOTION. DIASTOLIC DYSFUNCTION. EXAM DESCRIPTION: RAD - Chest Single View - 01/03/2021 4:33 pm CLINICAL HISTORY: found on ground COMPARISON: Chest Single View dated 11/01/2020; Chest Single View dated 12/02/2019; Chest Single View dated 06/09/2019; Chest Single View dated 05/27/2019 FINDINGS: Lines: None. Lungs: Decreased lung volumes. Linear opacities of the left lung base likely representing subsegmental atelectasis. Pleural: No significant pleural effusions or pneumothorax. Cardiac: Cardiomegaly. Pacemaker. Bones: No acute fractures. ACDF in the cervical spine. Other: IMPRESSION: No acute cardiopulmonary disease. Conclusions/Impression: CKD III -No NSAIDs Hypokalemia -Replete potassium prn HTN with CKD/ CHF -Continue Clonidine Diastolic CHF, chronic -Low sodium diet DM II with CKD & Polyneuropathy -Continue Lantus -RISS Moderate malnutrition -Recommend protein supplementation Thank you kindly for the consultation. Case reviwed with Dr. Canas
[2021-01-09 17:19] VITALS: BP 165/81; TEMP 97.4
--- NOTE | 2021-01-09 20:50 | P.DS ---
Admission Date: 01/03/21 Discharge Date: 01/09/21 Primary Care Provider: Dr. Uribe Disposition: DC HOME/HOME HEALTH CARE Discharge Condition: FAIR Reason for Admission: NSTEMI, cellulitis, intractable pain Consultations: Cardiology - Dr. Elizabeth Neurology - Dr. Contreras Nephrology - Dr. Uribe Procedures: CXR (01/03): IMPRESSION: No acute cardiopulmonary disease. CT Head/cspine/chest/abd/pelvis (01/03) : FINDINGS: CT HEAD WITHOUT CONTRAST: No intracranial hemorrhage, hydrocephalus or extra-axial fluid collection. No areas of brain edema or midline shift. Small focus of hypoattenuation in the right pagan radiata is unchanged. Suspect mild chronic small vessel ischemic changes. Re- demonstrated prominent empty expanded sella. The paranasal sinuses and mastoids are clear. The calvarium is intact. CT CERVICAL SPINE WITHOUT CONTRAST: Chronic C2 fracture again noted. Status post C4 through C6 fusion. The prevertebral soft tissues are normal in thickness. CT CHEST, ABDOMEN, PELVIS WITHOUT CONTRAST: NOTE: Lack of contrast is a significant limitation in the assessment of trauma related findings. Specifically, solid organ, vascular and bowel evaluation is significantly limited. The lungs are clear.No pneumothorax or pericardial/pleural fluid. Upper chest wall pacemaker. No evidence of intra-abdominal visceral injury, free fluid or free air is seen within the above detailed limitations. The bladder is decompressed around Mike catheter. Moderate stool in the colon. No concerning pelvic findings. L2 through S1 fusion. Multilevel degenerative changes are present in the spine. IMPRESSION: Negative for acute traumatic findings within the above detailed limitations. Xray foot (01/04): IMPRESSION: 1. No evidence of an acute fracture left tibia or fibula. 2. No evidence of an acute fracture of the left foot within the limits of the study. 3. Nonspecific small rounded lucency in the distal left tibial epiphysis which could represent a small lytic lesion and can be followed up as appropriate. Xray Shoulder (01/04): IMPRESSION: 1. No definite shoulder dislocation. Evaluation for fracture is suboptimal due to lack of anterior view. Repeat imaging when possible recommended. Xray tib/fib (01/04): IMPRESSION: 1. No evidence of an acute fracture left tibia or fibula. 2. No evidence of an acute fracture of the left foot within the limits of the study. 3. Nonspecific small rounded lucency in the distal left tibial epiphysis which could represent a small lytic lesion and can be followed up as appropriate. CT Lower extremity (01/08): FINDINGS: A small 5 mm benign geode seen distal tibia, correlating with recent plain film finding. No worrisome bone lesions are present. No fracture or dislocation seen. No soft tissue mass or hematoma. IMPRESSION: No worrisome pathologic process identified. Echo (01/06): normal LVEF : 55-60%. moderate LV hypertrophy. normal wall motion diastolic dysfunction Problem list Right lower extremity cellulitis / skin tear Acute on chronic neuropathic pain NSTEMI, demand ischemia UTI, acute cystitis DM2, [id number] Syncope Acute renal failure, resolved Hypertension Brief History of Present Illness: 65 yo F with CHF, HTN, CKD, HLD, DM and afib who was found on the ground this afternoon unable to get up at her assisted living facility. She denies pain, chest pain, fever, nausea and vomiting. She does not remember the fall. She says she felt at her baseline before the fall. WBC 21, Na 148, cl 110, BUN 42, Cr 1.56, GFR 40, glu 174, CK 904, troponin 0.85, BNP 3014, procal 0.10. UA + for leukocyte esterase, ketones, blood, and WBCs. Rash on inner R leg suspicious for cellulitis. Hospital Course: Patient empirically treated for cellulitis and UTI. Cultures grew klebsiella (urine) and enterococcus (RLE wound). Both were sensitive to levaquin and patient was transitioned to this. Her main reason for continued hospitalization was due her reporting severe 10/10 pain intermittently. This was evaluated by CT imaging and neurology consult. Imaging was negative and neuro felt this was likely secondary to her neuropathy. Recommended pain control with PO medication and discharge home to f/u with her neurologist / pain doctor. Patient had some relief with PO dilaudid and requested to be discharged home with home health / home PT on 01/09. She was adamant on leaving, and at one point almost left AMA. She was discharged home, to continue wound care, to complete 2 weeks of antibiotics, and to follow up with her physicians in the next few days. Vital Signs/Physical Exam: Physical Exam General: Alert, appears comfortable HEENT: Normal conjunctiva, sclera anicteric Respiratory: Clear to auscultation bilaterally, Normal air movement Cardiovascular: No edema, Regular rate/rhythm Gastrointestinal: Soft and benign, Non-distended MSK: No pain on palpation of spinal processes, no L knee tenderness/swelling, no tenderness with palpation of LLE Integumentary: Right thigh with superficial skin tear, no purulent drainage Temp Pulse Resp BP Pulse Ox 97.4 F 67 18 165/81 H 96 01/09/21 12:00 01/09/21 12:00 01/09/21 12:00 01/09/21 12:00 01/09/21 12:00 Laboratory Data at Discharge: WBC 13.10 K/uL (4.3-10.9) H 01/09/21 05:31 Hgb 11.5 g/dL (12.0-15.0) L 01/09/21 05:31 Hct 34.8 % (36.0-45.0) L 01/09/21 05:31 Plt Count 311 K/uL (152-406) 01/09/21 05:31 PT 13.8 SECONDS (9.5-12.5) H 01/03/21 16:56 INR 1.20 01/03/21 16:56 APTT 29.8 SECONDS (24.3-36.9) 01/03/21 16:56 Sodium 140 mmol/L (136-145) 01/09/21 05:31 Potassium 3.9 mmol/L (3.5-5.1) 01/09/21 05:31 BUN 23 mg/dL (7-18) H 01/09/21 05:31 Creatinine 1.16 mg/dL (0.55-1.3) 01/09/21 05:31 Glucose 95 mg/dL (74-106) 01/09/21 05:31 Phosphorus 3.3 mg/dL (2.5-4.9) 01/04/21 06:50 Magnesium 1.7 mg/dL (1.8-2.4) L 01/09/21 05:31 Total Bilirubin 0.8 mg/dL (0.2-1.0) 01/04/21 06:50 AST 30 U/L (15-37) 01/04/21 06:50 ALT 36 U/L (12-78) 01/04/21 06:50 Alkaline Phosphatase 107 U/L (45-117) 01/04/21 06:50 Troponin I 0.68 ng/mL (0.0-0.045) H* 01/04/21 06:50 Triglycerides 164 mg/dL (<150) H 01/04/21 06:50 Cholesterol 176 mg/dL (<200) 01/04/21 06:50 HDL Cholesterol 34 mg/dL (40-60) L 01/04/21 06:50 Cholesterol/HDL Ratio 5.18 01/04/21 06:50 Home Medications: ALPRAZolam [Alprazolam] 0.5 mg PO TID 12/03/18 Clonidine HCl [Catapres*] 0.2 mg PO DAILY 12/03/18 Hydrocodone/Acetaminophen [Hydrocodone-Acetamin 7.5-325] 1 tab PO QID 12/03/18 Simvastatin 40 mg PO BEDTIME 12/03/18 Furosemide [Lasix] 40 mg PO BID 12/02/19 Insulin Glargine Human [Lantus*] 40 units SQ BID 01/04/21 Carvedilol [Coreg] 3.125 mg PO BID 30 Days #60 tablet 01/09/21 Duloxetine HCl [Cymbalta] 30 mg PO BEDTIME 30 Days #30 cap 01/09/21 Gabapentin [Neurontin] 600 mg PO TID 30 Days #90 tablet 01/09/21 Hydromorphone [Dilaudid*] 2 mg PO Q6H PRN 3 Days #10 tab 01/09/21 Medihoney [Medihoney Woundcare Gel*] 1 appl TOP DAILY 30 Days #1 tube 01/09/21 levoFLOXacin [Levaquin*] 750 mg PO Q48H 8 Days #4 tab 01/09/21 New Medications: Carvedilol [Coreg] 3.125 mg PO BID 30 Days #60 tablet Duloxetine HCl [Cymbalta] 30 mg PO BEDTIME 30 Days #30 cap Hydromorphone [Dilaudid*] 2 mg PO Q6H PRN 3 Days #10 tab PRN Reason: BREAKTHROUGH PAIN levoFLOXacin [Levaquin*] 750 mg PO Q48H 8 Days #4 tab Medihoney [Medihoney Woundcare Gel*] 1 appl TOP DAILY 30 Days #1 tube Gabapentin [Neurontin] 600 mg PO TID 30 Days #90 tablet Physician Discharge Instructions: PROBLEM: UTI, Neuropathy GOAL: Clear understanding of disease process E-scripts sent to [facility] in [place]. INSTRUCTIONS: - You were evaluated by cardiology and neurology. Your pain was evaluated by CT of your abdomen/pelvis/spine and of your left lower leg. There were no findings of broken bones / infection / nerve impingement. Dr. Contreras, Neurology, felt this was secondary to your neuropathy and recommended increasing your Gabapentin, starting Cymbalta, and pain control. - You are discharged home to continue this treatment. Please follow up with your pain medicine doctor in the next 2-3 days. - You were also found to have a superficial skin tear / concern for cellulitis. Your urine was positive for bacteria as well. You were treated with an antibiotic, levaquin. You are discharged to complete a total of 2 weeks of antibiotics. Continue wound care as wound care team recommended. business services specialist sales was consulted to set up home health and home PT on discharge. Wound care: Mons Pubis: Clean with soap and water. Apply Triple Antibiotic Ointment to wound covered with gauze daily. Medial Thigh: Clean with soap and water; rinse with normal saline. Apply Medihoney to wound covered with Algisite, ABD pad, secure with medipore tape using Cavilon (skin prep). Change dressing daily. Right Lower Back: Clean with soap and water. Apply Duoderm to wound. Change dressing 3x weekly. Diet: Heart Healthy Activity: Fall precautions COMMUNITY SERVICES Services Needed: Name of Company: undetermined Date or Referral: IMMUNIZATION Influenza Vaccine Indicated: Influenza Vaccine Given: Date Given: Pneumonia Vaccine Indicated: No Pneumonia Vaccine Given: Date Given: Diet: AHA Activity: Fall precautions Time spent managing pt's care (in minutes): 45
== END 2021-01-09 14:28 | disposition home health service (06) | DRG 74 ==
LOC: ER 15:35 → ERHOLD 20:19 → 2ND 22:05
PROVIDERS: ADMIT Internal Medicine; ATTEND Internal Medicine
DX: E11.42 Type 2 diabetes mellitus with diabetic polyneuropathy (principal); L03.115 Cellulitis of right lower limb; I24.8 Other forms of acute ischemic heart disease; I13.0 Hypertensive heart and chronic kidney disease with heart failure and stage 1 through stage 4 chronic kidney disease, or unspecified chronic kidney disease; I50.32 Chronic diastolic (congestive) heart failure; E46 Unspecified protein-calorie malnutrition; Z68.41 Body mass index [BMI] 40.0-44.9, adult; N30.00 Acute cystitis without hematuria; N17.9 Acute kidney failure, unspecified; B95.2 Enterococcus as the cause of diseases classified elsewhere; N18.30 Chronic kidney disease, stage 3 unspecified; E87.6 Hypokalemia; B96.1 Klebsiella pneumoniae [K. pneumoniae] as the cause of diseases classified elsewhere; M10.9 Gout, unspecified; F17.210 Nicotine dependence, cigarettes, uncomplicated; I48.91 Unspecified atrial fibrillation; Z88.0 Allergy status to penicillin; Z95.0 Presence of cardiac pacemaker; Z20.822 Contact with and (suspected) exposure to COVID-19
CPT/HCPCS: 36415; 51702; 70450; 71045; 71250; 72125; 72131; 73020; 73700; 80048; 80053; 80061; 80076; 80202; 81003; 81015; 82550; 82565; 82947; 83036; 83605; 83735; 83880; 84100; 84145; 84439; 84443; 84484; 85025; 85610; 85730; 86140; 87040; 87070; 87077; 87086; 87088; 87186; 87205; 93005; 93306; 93926; 93971; 94760; 96372; 96374; 96375; 97110; 97116; 97161; 97530; 99251; 99283; 99285; J0360; J0692; J0696; J1170; J1650; J1815; J1953; J2405; J3010; J3360; J3370; J3475; J7030; J7040; U0003

== ENCOUNTER 2021-02-03 23:05 | Inpatient (IN) | payer OTHER ==
[2021-02-04 00:27] LABS: Urine Blood 3+ (Negative); Urine Glucose Negative (Negative); Urine Protein 2+ (Negative); Urine Specific Gravity >=1.030 (1.005-1.030); Urine pH 5.5 (5.0-7.0)
[2021-02-04] MEDS ORDERED: VANCOMYCIN 1 GM/VIAL ONE (00:50)
[2021-02-04] MEDS ORDERED: CEFEPIME 1 GM/VIAL ONE ×2 (00:50→00:55)
[2021-02-04] MEDS ORDERED: FENTANYL CITR 100 MCG/2 ML ONE (00:50)
[2021-02-04] MEDS ORDERED: NA CHLORIDE 0.9% 1,000 ML ONE (00:50)
[2021-02-04] MEDS ORDERED: NA CHLORIDE 0.9% 250 ML ONE (00:50)
[2021-02-04 00:55] LABS: Protime INR 1.47
[2021-02-04] MEDS ORDERED: ONDANSETRON 4 MG/2 ML VIAL ONE (00:55)
[2021-02-04] MEDS ORDERED: NA CHLORIDE 0.9% 100 ML ONE ×2 (00:56→06:02)
[2021-02-04] MEDS ORDERED: FAMOTIDINE 20 MG/2 ML VIAL IV ONE (00:56)
[2021-02-04 00:57] LABS: Basophils % 2.1 % (0-1.3); Hematocrit 34.2 % (36.0-45.0); Lymphocytes % 13.8 % (15.3-44.8); MPV 9.1 fL (7.6-11.3); RBC Red Blood Cell Count 3.84 M/uL (3.86-4.86)
[2021-02-04 01:10] LABS: Albumin 2.4 g/dL (3.4-5.0); Bilirubin Direct 0.2 mg/dL (0-0.2); Bilirubin Total 0.5 mg/dL (0.2-1.0); Magnesium 2.3 mg/dL (1.8-2.4); Potassium 4.1 mmol/L (3.5-5.1); Protein, Total 7.2 g/dL (6.4-8.2); Troponin (Emerg Dept Use Only) 0.17 ng/mL (0.0-0.045)
[2021-02-04 01:36] LABS: SARS-COV-2 RT PCR NEGATIVE (NEGATIVE)
[2021-02-04 02:22] LABS: Blood Morphology Comment NOT SEEN (NOT SEEN); Platelet Estimate ADEQ
[2021-02-04 03:07] LABS: Urine Bacteria 20-50 /HPF (<20); Urine RBC >50 /HPF (NONE SEEN)
[2021-02-04 03:08] LABS: Urine Yeast FEW (NONE SEEN)
[2021-02-04] MEDS ORDERED: HYDROMORPHONE ORAL 2 MG TAB PO PRN ×2 (03:15→12:35)
[2021-02-04] MEDS ORDERED: ONDANSETRON 4 MG/2 ML VIAL IV PRN (03:15)
--- NOTE | 2021-02-04 03:30 | P.HP ---
Certification for Inpatient Patient admitted to: Inpatient With expected LOS: >2 Midnights Patient will require the following post-hospital care: None Practitioner: I am a practitioner with admitting privileges, knowledge of patient current condition, hospital course, and medical plan of care. Services: Services provided to patient in accordance with Admission requirements found in Title 42 Section 412.3 of the Code of Federal Regulations Patient History Date of Service: 02/04/21 Primary Care Provider: Dr. Uribe Reason for admission: Acute renal failure, cellulitis History of Present Illness: 65-year-old -[place] female with history of diabetes mellitus type 2, hypertension, chronic diastolic congestive heart failure, hyperlipidemia, CKD presents the emergency department for severe pain to right upper and lower extremity, worsening wounds, weakness and inability to care for herself at home. Patient was admitted here last month for cellulitis, neuropathic pain, NSTEMI and urinary tract infection. Patient was discharged and supposed to have home health and physical therapy but this was not set up. Patient has been home alone without additional assistance for the last approximately 1 month. Patient reports worsening of wound to right anterior proximal thigh and pannus area, also reports worsening of her pain that she is being treated for with gabapentin. ED progress is to admit for further management of acute renal failure, cellulitis. Allergies codeine [Codeine] Allergy (Verified 12/02/19 21:57) Itching/Hives/Rash morphine Allergy (Verified 12/02/19 21:57) Itching/Hives/Rash Penicillins Allergy (Verified 12/02/19 21:57) Itching/Hives/Rash Home Medications: ALPRAZolam [Alprazolam] 0.5 mg PO TID 12/03/18 Clonidine HCl [Catapres*] 0.2 mg PO DAILY 12/03/18 Hydrocodone/Acetaminophen [Hydrocodone-Acetamin 7.5-325] 1 tab PO QID 12/03/18 Simvastatin 40 mg PO BEDTIME 12/03/18 Furosemide [Lasix] 40 mg PO BID 12/02/19 Insulin Glargine Human [Lantus*] 40 units SQ BID 01/04/21 Carvedilol [Coreg] 3.125 mg PO BID 30 Days #60 tablet 01/09/21 Duloxetine HCl [Cymbalta] 30 mg PO BEDTIME 30 Days #30 cap 01/09/21 Gabapentin [Neurontin] 600 mg PO TID 30 Days #90 tablet 01/09/21 Hydromorphone [Dilaudid*] 2 mg PO Q6H PRN 3 Days #10 tab 01/09/21 Medihoney [Medihoney Woundcare Gel*] 1 appl TOP DAILY 30 Days #1 tube 01/09/21 levoFLOXacin [Levaquin*] 750 mg PO Q48H 8 Days #4 tab 01/09/21 - Past Medical/Surgical History Diabetic: Yes -: Chronic renal disease, Nephrology-Dr. Uribe -: Gout -: Obesity -: CHF, Cardiology-Dr. Luque -: Hyperlipidemia -: Anemia -: Anxiety -: Chronic back pain -: Previous neck fusion -: Previous back fusion -: Back surgeries -: Cholecystectomy -: Appendectomy -: Hysterectomy -: Pacemaker/defibrillator Psychosocial/ Personal History: She is currently . Has 2 children. Has 9 grandchildren. She does not work. - Family History Father -: Heart disease Mother -: Heart disease - Social History Smoking Status: Current every day smoker Counseled patient to stop smoking for: less than 10 minutes Smoking therapy provided: Yes Alcohol use: No CD- Drugs: No Caffeine use: No Review of Systems 10-point ROS is otherwise unremarkable General: Weakness, Malaise Musculoskeletal: Arm Pain, Leg Pain, As per HPI Physical Examination - Physical Exam General: Alert, In no apparent distress, Oriented x3 HEENT: Atraumatic, PERRLA, Mucous membr. moist/pink, EOMI, Sclerae nonicteric Neck: Supple, 2+ carotid pulse no bruit, No LAD, Without JVD or thyroid abnormality Respiratory: Clear to auscultation bilaterally, Normal air movement Cardiovascular: Regular rate/rhythm, Normal S1 S2 Gastrointestinal: Normal bowel sounds, No tenderness Musculoskeletal: No tenderness Integumentary: Other (Ulcerations to right anterior proximal thigh and mons pubis area) Neurological: Normal speech, Normal tone, Normal affect Lymphatics: No axilla or inguinal lymphadenopathy - Studies Laboratory Data (last 24 hrs) 02/04/21 00:00: PT 17.0 H, INR 1.47 02/04/21 00:00: WBC 14.50 H, Hgb 11.2 L, Hct 34.2 L, Plt Count 343 10/26/21 00:00: Sodium 144, Potassium 4.1, BUN 57 H, Creatinine 3.49 H, Glucose 107 H, Magnesium 2.3 D, Total Bilirubin 0.5, AST 17, ALT 16, Alkaline Phosphatase 135 H Assessment and Plan - Plan Assessment: ARFacute worsening of CKD 3 NSTEMI with underlying chronic diastolic congestive heart failure Cellulitis with ulcerations to right lower extremity/mons pubis Diabetes type 2 with hyperglycemia Polyneuropathy/chronic/intractable pain Plan: ARFacute worsening of CKD 3: Continue with IV fluids, nephrology consult in place. Will obtain renal ultrasound, CT abdomen pelvis noncontrast negative for any acute findings. NSTEMI with underlying chronic diastolic congestive heart failure: Troponin 0.17, on previous admission troponin was higher initially, patient denies any chest pain likely demand ischemia/decreased clearance with renal failure, will trend troponin level, consult cardiology as necessary. Cellulitis with ulcerations to right lower extremity/mons pubis: Continue with IV vancomycin/cefepime, blood cultures obtained. Will obtain wound cultures, patient may need general surgery consult. Wound therapy consult in place, patient will likely require skilled placement or inpatient rehab at discharge. Diabetes type 2 with hyperglycemia: A [facility] Accu-Chek, sliding scale insulin. Polyneuropathy/chronic/intractable pain:Continue gabapentin we will also provide patient with oral Dilaudid at this time. There has been a lot of difficulty in the past with managing patient's pain while in the hospital. DVT PPX: Heparin Code status: Full Discharge Plan: Home Plan to discharge in: Greater than 2 days - Advance Directives Does patient have a Living Will: No Does patient have a Durable POA for Healthcare: No - Code Status/Comfort Care Code Status Assessed: Yes (Full code) Critical Care: No Time Spent Managing Pts Care (In Minutes): 55
[2021-02-04] MEDS ORDERED: HYDROMORPHONE HCL 2 MG/ML inj ONE (03:35)
[2021-02-04 05:07] VITALS: BMI 36.9
[2021-02-04] MEDS ORDERED: VANCOMYCIN 500 MG in NA CHLORIDE 0.9% 100 ML IVPB ONE (05:30)
[2021-02-04] MEDS ORDERED: VANCOMYCIN 500 MG/VIAL ONE (05:55)
[2021-02-04] MEDS: NA CHLORIDE 0.9% 1,000 ML IV SCH ×2 (06:14→15:21)
[2021-02-04] MEDS ORDERED: GABAPENTIN 300 MG CAP PO ONE (06:41)
[2021-02-04] MEDS ORDERED: GABAPENTIN 300 MG CAP ONE (07:10)
[2021-02-04] MEDS: INSULIN -REGULAR HUMAN 50 UNIT/0.5 ML ML SQ SCH ×4 (07:30→20:50)
--- NOTE | 2021-02-04 08:03 | RAD REPORT ---
EXAM DESCRIPTION: Rama Single View02/04/2021 1:13 am CLINICAL HISTORY: Cough COMPARISON: December 2020 FINDINGS: Elevation right hemidiaphragm with areas of subsegmental atelectasis within the right juan ramon g. Left lung appears clear of acute infiltrate. Heart is mildly enlarged. Pacemaker leads in place
--- NOTE | 2021-02-04 08:13 | RAD REPORT ---
EXAM DESCRIPTION: US - Renal Ultrasound-Complete - 02/04/2021 6:06 am CLINICAL HISTORY: Acute renal failure COMPARISON: 2018 FINDINGS: The right kidney measures 10 cm with a mildly increased echotexture. The left kidney measures 9 cm with a mildly increased l echotexture. 1.3 centimeters cyst Hydronephrosis is not seen. Images of the bladder were not obtained as the patient was pain wanted th e exam to end IMPRESSION: Mildly increased renal echotexture consistent with parenchymal disease 1.3 centimeter left renal cyst
[2021-02-04] MEDS ORDERED: cloNIDine HCL 0.1 MG TAB PO SCH ×2 (09:00→20:32)
[2021-02-04] MEDS ORDERED: VANCOMYCIN/NS 1 gm 1 GM/250 ML BAG IVPB SCH (09:00)
[2021-02-04] MEDS: HEPARIN 5000 UNIT/ML 1 ML VIAL SQ SCH ×2 (09:00→20:56)
[2021-02-04] MEDS: ALPRAZOLAM 0.5 MG TABLET PO SCH ×3 (09:00→20:56)
[2021-02-04] MEDS: GABAPENTIN 100 MG CAP PO SCH ×3 (09:00→20:56)
[2021-02-04] MEDS ORDERED: CEFEPIME 1 GM/VIAL IV SCH (09:00)
[2021-02-04] MEDS: HYDROCODONE/APAP 10/325 TAB PO SCH ×5 (09:00→20:56)
[2021-02-04] MEDS: carvediloL 6.25 MG TAB PO SCH ×2 (09:00→20:56)
[2021-02-04] MEDS: NICOTINE 14 MG/PAT TD SCH (09:00)
--- NOTE | 2021-02-04 10:20 | P.CNS ---
Date of Consult: 02/04/21 Primary Care Provider: Dr. Uribe Chief Complaint: Acute renal failure, cellulitis History of Present Illness: Patient is a 65-year-old female with a past medical history of diabetes type 2, morbid obesity, hypertension, chronic diastolic congestive heart failure, chronic pain, neuropathy, hyperlipidemia, and CKD who presented to the emergency department secondary to severe pain in her right upper and lower extremity. Patient also has s right upper inner thigh wound. Patient states that the wound developed about a month ago and does not know how or what caused the wound, she denies any trauma or events to the area. Patient states t hat she follows up with a wound care doctor in [place] however does not remember which doctor or what therapy they were using for her. Patient was recently seen at this facility about a month ago for cellulitis, neuropathic pain, NSTEMI, and UTI. She is discharged home and was set be followed with home health and physical therapy however it was not set up. Patient states that she has been home alone without assistance for about a month. Infectious disease has been consulted to monitor the patient's antibiotic regimen. Right upper inner thigh the wound does not show any signs of infection at this time. Patient empirically placed on cefepime and vancomycin, these antibiotics have been discontinued and doxycycline has been started 100 mg PO b.i.d.. Patient currently denies nausea/vomiting/diarrhea/shortness breath/chest pain. Patient reports and can't pain to right inner thigh wound. Allergies codeine [Codeine] Allergy (Verified 12/02/19 21:57) Itching/Hives/Rash morphine Allergy (Verified 12/02/19 21:57) Itching/Hives/Rash Penicillins Allergy (Verified 12/02/19 21:57) Itching/Hives/Rash Home Medications: ALPRAZolam [Alprazolam] 0.5 mg PO TID 12/03/18 Clonidine HCl [Catapres*] 0.2 mg PO DAILY 12/03/18 Simvastatin 40 mg PO BEDTIME 12/03/18 Furosemide [Lasix] 40 mg PO BID 12/02/19 Insulin Glargine Human [Lantus*] 40 units SQ BEDTIME 01/04/21 Gabapentin [Neurontin] 600 mg PO TID 30 Days #90 tablet 01/09/21 Hydromorphone [Dilaudid*] 2 mg PO Q6H PRN 3 Days #10 tab 01/09/21 Medihoney [Medihoney Woundcare Gel*] 1 appl TOP DAILY 30 Days #1 tube 01/09/21 Carvedilol [Coreg] 12.5 mg PO BID 02/04/21 Hydrocodone Bit/Acetaminophen [Hydrocodon-Acetaminophn 10-325] 1 tab PO QID 02/04/21 - Past Medical/Surgical History Diabetic: Yes -: Chronic renal disease, Nephrology-Dr. Uribe -: Gout -: Obesity -: CHF, Cardiology-Dr. Luque -: Hyperlipidemia -: Anemia -: Anxiety -: Chronic back pain -: Previous neck fusion -: Previous back fusion -: Back surgeries -: Cholecystectomy -: Appendectomy -: Hysterectomy -: Pacemaker/defibrillator Psychosocial/ Personal History: She is currently . Has 2 children. Has 9 grandchildren. She does not work. - Family History Father Medical History: Heart disease Mother Medical History: Heart disease - Social History Smoking Status: Current every day smoker Alcohol use: No CD- Drugs: No Caffeine use: No Place of Residence: Home Review of Systems 10-point ROS is otherwise unremarkable Physical Examination Temp Pulse Resp BP Pulse Ox 96.1 F L 86 15 139/64 94 02/04/21 08:00 02/04/21 08:00 02/04/21 08:00 02/04/21 08:00 02/04/21 08:00 General: Obese, Other (Altered mental status, on patient did not remember me coming and to visit with her 1 nurse asked about it) HEENT: Atraumatic Neck: Supple, 2+ carotid pulse no bruit Respiratory: Clear to auscultation bilaterally, Normal air movement Cardiovascular: Normal pulses, Regular rate/rhythm Capillary refill: <2 Seconds Gastrointestinal: Normal bowel sounds, Soft and benign Musculoskeletal: No clubbing, No contractures Integumentary: Other (Right upper inner thigh a wound: Base of wound majority granulation tissue, minimal slough tissue present. No clinical signs of infection, no lymphatic streaking noted. No foul odor or drainage noted to wound.) Urinary: Mike catheter Laboratory Data (last 24 hrs) 02/04/21 00:00: PT 17.0 H, INR 1.47 02/04/21 00:00: WBC 14.50 H, Hgb 11.2 L, Hct 34.2 L, Plt Count 343 02/04/21 00:00: Sodium 144, Potassium 4.1, BUN 57 H, Creatinine 3.49 H, Glucose 107 H, Magnesium 2.3 D, Total Bilirubin 0.5, AST 17, ALT 16, Alkaline Phosphatase 135 H Conclusions/Impression: Antibiotics: Doxycycline Start: 02/04 Assessment/plan Right upper inner thigh wound Wound care: Apply Medihoney to area and cover with gauze. Change Q Wednesday or p.r.n. if soiled or removed. Continue doxycycline for a total of 7 days. Leukocytosis Continue to monitor WBC trend. Patient afebrile, continue doxycycline at this time. TEE on CKD stage 3 Nephrology on case, avoid nephrotoxic agents. Renally dose all antibiotic with renal excretion Diabetes Continue insulin Morbid obesity/CHF Medical management per primary team Plan of care discussed with Dr. Duke Thank you for consultation.
[2021-02-04 11:22] LABS: Urine Appearance CLOUDY (Clear); Urine Bilirubin NEGATIVE (Negative); Urine Blood 3+ (Negative); Urine Color YELLOW (Yellow); Urine Glucose NEGATIVE (Negative); Urine Protein NEGATIVE (Negative); Urine Specific Gravity 1.015 (1.005-1.030); Urine Urobilinogen 0.2 mg/dL (0.2-1.0)
--- NOTE | 2021-02-04 11:24 | RAD REPORT ---
EXAM DESCRIPTION: CT - Chest Abd Pelvis Wo Con - 02/04/2021 6:30 am CLINICAL HISTORY: 65 years, Female, PAIN; ABD DISTENTION COMPARISON: 12/02/2019 FINDINGS: Multiple transaxial tomograms of the chest, abdomen and pelvis were obtained from the lung apices through the ischial tuberosities, utilizing 5 mm slice thickness at 5 mm interval reconstruct ion without the administration of IV contrast. Multiplanar reformats in the sagittal and coronal plane were generated and reviewed. This exam was performed according to our departmental dose-optimization protocol, which includes auto mated exposure control, adjustment of the mA and/or kV according to patient size and/or use of iterat christine reconstruction technique. Chest: The lungs parenchyma demonstrate decreased lung volume with compressive atelectatic changes ri ght lung base and mild elevation of the right hemidiaphragm. No significant masses and/or consolidati ons are identified. The left lung demonstrate to be within normal limits. The trachea mainstem bronchus demonstrate to be normal. There is no significant pleural and/or perica rdial effusions. The heart demonstrate to be normal in size. There is a pacemaker via left subclavian. There is athero sclerotic disease of the thoracic aorta with no significant aneurysmatic dilatation. There is no significant mediastinal and/or hilar lymphadenopathy. The axillary regions demonstrate to be clear. The bone windows demonstrate no significant skeletal lesions. Abdomen and pelvis: Grossly the unopacified liver demonstrate again the presence of tiny hypodensity within the medial segment left hepatic lobe corresponding small cyst. Surgical clips within the gallb ladder fossa correspond to previous cholecystectomy. The spleen, pancreas and adrenal glands demonstr ate to be grossly within normal limits. The kidneys demonstrate vascular calcifications. No definitive nephrolithiasis and/or hydronephrosis. The unopacified stomach, small bowel and large bowel demonstrate to be within normal limits. Fecal re sidue within the large bowel suggests the possibility of the constipation/mild fecal stasis. The urinary bladder demonstrate presence of a Mike catheter. There is no evidence for retroperitonea l lymphadenopathy. There is no evidence for ascites. There is atherosclerotic disease of the aorta ex tending into the iliac arteries. Again there is a IVC filter within the right common iliac vein/dista l inferior vena cava The bone windows demonstrate posterior transpedicular screw fixation device L2-S1. IMPRESSION: No acute intrathoracic, abdominal, or pelvic process. Fecal residue within the large bowel suggesting constipation. Atherosclerotic disease of the thoracic and abdominal aorta with. Status post cholecystectomy. Electronically signed by: Kevyn Pinon MD 02/04/2021 3:07 AM CDT Due to temporary technical issues with the PACS/Fluency reporting system, reports are being signed by the in house radiologist without review as a courtesy to ensure prompt reporting. The interpreting r adiologist is fully responsible for the content of the report.
[2021-02-04 11:29] LABS: Urine Microscopic Reflex ORDER UMIC
[2021-02-04 12:06] LABS: Urine Amorphous Sediment 1+ /HPF (NONE SEEN); Urine Bacteria 20-50 /HPF (<20); Urine RBC >50 /HPF (NONE SEEN)
--- NOTE | 2021-02-04 12:13 | EKG ---
Test Date: 2021-02-04 Test Time: 02:07:50 Is/It Project Manager: ADRIANNA MEASUREMENT RESULTS: Intervals: Rate: 88 [place]: 152 QRSD: 94 QT: 378 QTc: 457 [place]: P: 61 [place]: 152 QRS: 25 T: 113 INTERPRETIVE STATEMENTS: Normal sinus rhythm ST & T wave abnormality, consider lateral ischemia Abnormal ECG Compared to ECG 01/03/2021 17:44:55 ST (T wave) deviation now present Possible ischemia now present Left ventricular hypertrophy no longer present Early repolarization no longer present Electronically Signed On 02-04-21 12:12:44 CDT by Junaid Elizabeth
--- NOTE | 2021-02-04 16:25 | P.CNS ---
Date of Consult: 02/04/21 Reason for Consult: TEE/CKD Requesting Physician: Joshua Canas Primary Care Provider: Dr. Uribe Chief Complaint: Acute renal failure, cellulitis History of Present Illness: 65-year-old -Irish female with history of diabetes mellitus type 2, hypertension, chronic diastolic congestive heart failure, hyperlipidemia, CKD presents the emergency department for severe pain to right upper and lower ex tremity, worsening wounds, weakness and inability to care for herself at home. Patient was admitted here last month for cellulitis, neuropathic pain, NSTEMI and urinary tract infection. Patient was discharged and supposed to have home health and physical therapy but this was not set up. Patient has been home alone without additional assistance for the last approximately 1 month. Patient reports worsening of wound to right anterior proximal thigh and pannus area, also reports worsening of her pain that she is being treated for with gabapentin. ED progress is to admit for further management of acute renal failure, cellulitis. Allergies codeine [Codeine] Allergy (Verified 12/02/19 21:57) Itching/Hives/Rash morphine Allergy (Verified 12/02/19 21:57) Itching/Hives/Rash Penicillins Allergy (Verified 12/02/19 21:57) Itching/Hives/Rash Home medications list reviewed: Yes Home Medications: ALPRAZolam [Alprazolam] 0.5 mg PO TID 12/03/18 Clonidine HCl [Catapres*] 0.2 mg PO DAILY 12/03/18 Simvastatin 40 mg PO BEDTIME 12/03/18 Furosemide [Lasix] 40 mg PO BID 12/02/19 Insulin Glargine Human [Lantus*] 40 units SQ BEDTIME 01/04/21 Gabapentin [Neurontin] 600 mg PO TID 30 Days #90 tablet 01/09/21 Hydromorphone [Dilaudid*] 2 mg PO Q6H PRN 3 Days #10 tab 01/09/21 Medihoney [Medihoney Woundcare Gel*] 1 appl TOP DAILY 30 Days #1 tube 01/09/21 Carvedilol [Coreg] 12.5 mg PO BID 02/04/21 Hydrocodone Bit/Acetaminophen [Hydrocodon-Acetaminophn 10-325] 1 tab PO QID 02/04/21 - Past Medical/Surgical History Diabetic: Yes -: Chronic renal disease, Nephrology-Dr. Uribe -: Gout -: Obesity -: CHF, Cardiology-Dr. Luque -: Hyperlipidemia -: Anemia -: Anxiety -: Chronic back pain -: Previous neck fusion -: Previous back fusion -: Back surgeries -: Cholecystectomy -: Appendectomy -: Hysterectomy -: Pacemaker/defibrillator Psychosocial/ Personal History: She is currently . Has 2 children. Has 9 grandchildren. She does not work. - Family History Father Medical History: Heart disease Mother Medical History: Heart disease - Social History Smoking Status: Current every day smoker Alcohol use: No CD- Drugs: No Caffeine use: No Place of Residence: Home Review of Systems 10-point ROS is otherwise unremarkable General: Weakness, Malaise Musculoskeletal: Leg Pain Physical Examination Temp Pulse Resp BP Pulse Ox 96 F L 60 15 100/39 L 97 02/04/21 12:00 02/04/21 12:00 02/04/21 12:00 02/04/21 12:00 02/04/21 12:00 General: In no apparent distress, Cooperative HEENT: Atraumatic Neck: Supple Respiratory: Clear to auscultation bilaterally Cardiovascular: No edema, Regular rate/rhythm Gastrointestinal: Soft and benign, Non-distended Musculoskeletal: No clubbing, No contractures, Tenderness Integumentary: No rashes, No cyanosis Neurological: Normal speech Laboratory Data (last 24 hrs) 02/04/21 00:00: PT 17.0 H, INR 1.47 02/04/21 00:00: WBC 14.50 H, Hgb 11.2 L, Hct 34.2 L, Plt Count 343 02/04/21 00:00: Sodium 144, Potassium 4.1, BUN 57 H, Creatinine 3.49 H, Glucose 107 H, Magnesium 2.3 D, Total Bilirubin 0.5, AST 17, ALT 16, Alkaline Phosphatase 135 H Imagings Data: EXAM DESCRIPTION: US - Renal Ultrasound-Complete - 02/04/2021 6:06 am CLINICAL HISTORY: Acute renal failure COMPARISON: 2018 FINDINGS: The right kidney measures 10 cm with a mildly increased echotexture. The left kidney measures 9 cm with a mildly increased l echotexture. 1.3 centimeters cyst Hydronephrosis is not seen. Images of the bladder were not obtained as the patient was pain wanted the exam to end IMPRESSION: Mildly increased renal echotexture consistent with parenchymal disease 1.3 centimeter left renal cyst EXAM DESCRIPTION: Mandeept Single View02/04/2021 1:13 am CLINICAL HISTORY: Cough COMPARISON: December 2020 FINDINGS: Elevation right hemidiaphragm with areas of subsegmental atelectasis within the right lung. Left lung appears clear of acute infiltrate. Heart is mildly enlarged. Pacemaker leads in place EXAM DESCRIPTION: CT - Chest Abd Pelvis Wo Con - 02/04/2021 6:30 am CLINICAL HISTORY: 65 years, Female, PAIN; ABD DISTENTION COMPARISON: 12/02/2019 FINDINGS: Multiple transaxial tomograms of the chest, abdomen and pelvis were obtained from the lung apices through the ischial tuberosities, utilizing 5 mm slice thickness at 5 mm interval reconstruction without the administration of IV contrast. Multiplanar reformats in the sagittal and coronal plane were generated and reviewed. This exam was performed according to our departmental dose-optimization protocol, which includes automated exposure control, adjustment of the mA and/or kV according to patient size and/or use of iterative reconstruction technique. Chest: The lungs parenchyma demonstrate decreased lung volume with compressive atelectatic changes right lung base and mild elevation of the right hemidiaphragm. No significant masses and/or consolidations are identified. The left lung demonstrate to be within normal limits. The trachea mainstem bronchus demonstrate to be normal. There is no significant pleural and/or pericardial effusions. The heart demonstrate to be normal in size. There is a pacemaker via left subclavian. There is atherosclerotic disease of the thoracic aorta with no significant aneurysmatic dilatation. There is no significant mediastinal and/or hilar lymphadenopathy. The axillary regions demonstrate to be clear. The bone windows demonstrate no significant skeletal lesions. Abdomen and pelvis: Grossly the unopacified liver demonstrate again the presence of tiny hypodensity within the medial segment left hepatic lobe corresponding small cyst. Surgical clips within the gallbladder fossa correspond to previous cholecystectomy. The spleen, pancreas and adrenal glands demonstrate to be grossly within normal limits. The kidneys demonstrate vascular calcifications. No definitive nephrolithiasis and/or hydronephrosis. The unopacified stomach, small bowel and large bowel demonstrate to be within normal limits. Fecal residue within the large bowel suggests the possibility of the constipation/mild fecal stasis. The urinary bladder demonstrate presence of a Mike catheter. There is no evidence for retroperitoneal lymphadenopathy. There is no evidence for ascites. There is atherosclerotic disease of the aorta extending into the iliac arteries. Again there is a IVC filter within the right common iliac vein/distal inferior vena cava The bone windows demonstrate posterior transpedicular screw fixation device L2- S1. IMPRESSION: No acute intrathoracic, abdominal, or pelvic process. Fecal residue within the large bowel suggesting constipation. Atherosclerotic disease of the thoracic and abdominal aorta with. Status post cholecystectomy. Conclusions/Impression: TEE likely due to hypovolemia CKD III -No NSAIDs -Change IVF 1/2NS HTN complicated hypotension -Continue IVF -Holding parameters for Clonidine Diastolic CHF, chronic -Low sodium diet -Hold furosemide DM II with CKD -RISS Moderate malnutrition -Encourage nutrition Anemia in chronic illness -Monitor H&H Gout Slow transit constipation -Start Colace -Lactulose X1 Acute cystitis with hematuria -Follow up culture Thank you kindly for the consultation Case reviewed with Dr. Ramirez
[2021-02-04] MEDS: LACTULOSE 20 GM/30 ML UCUP PO ONE ×2 (18:00→18:27)
[2021-02-04] MEDS: NACHLORIDE 0.45% 1,000 ML IV SCH (18:26)
[2021-02-04] MEDS: DULOXETINE 30 MG CAP PO SCH (20:56)
[2021-02-04] MEDS: DOCUSATE NA 100 MG CAP PO SCH (20:56)
[2021-02-04] MEDS: DOXYCYCLINE 100 MG CAP PO SCH (20:56)
[2021-02-05] MEDS ORDERED: CEFEPIME 1 GM in NA CHLORIDE 0.9% 100 ML IV SCH ×2
[2021-02-05] MEDS: NACHLORIDE 0.45% 1,000 ML IV SCH ×2 (03:00→14:16)
--- NOTE | 2021-02-05 05:59 | P.PN ---
Date of Service: 02/05/21 Subjective: no acute events overnight. Patient had good pain control yesterday evening. slept ok however woke up this morning in severe pain, reports delay in receiving pain medication didn't help no new complaints. ROS: 10 point ROS as noted above, otherwise negative Physical exam GEN: Alert, oriented, NAD HEENT: Normal conjunctiva, sclera anicteric CV: Regular rate and rhythm, no edema Pulm: Nonlabored respiration on room air ABD: Soft, nontender, nondistended MSK: tenderness along R upper thigh Integumentary: R upper thigh superficial wound, pink/red granulation tissue, no purulent drainage Neuro: Normal speech, normal affect Problem List ARFacute worsening of CKD 3 NSTEMI with underlying chronic diastolic congestive heart failure Cellulitis with ulcerations to right lower extremity/mons pubis Diabetes type 2 with hyperglycemia Polyneuropathy/chronic/intractable pain TEE improving, nephrology consulted, given IVF. pt reported decrease PO intake, seems dry NSTEMI - troponin stable at 0.17, no chest pain, suspect troponin leak, recently had admission with higher levels of troponin and cardiology consulted with no plans for further testing R upper /inner thigh wound, appears to be healing, slowly. does not appear infected, no purulent drainage. vanc/cef discontinued, ID consulted and recommended continue coverage with Doxy for now leukocytosis improved. CRP significantly elevated, not specific. similarly, procal mildly elevated, improved sliding scale / accucheks intractable / chronic pain - polyneuropathy - had bad experience with pain pump in past, pain was managed ok yesterday but worse this morning again. continue on home regimen of [place] 10s q6h PRN, initially ordered dilaudid PO, but patient stated better results from norco, discussed needs to f/u with pain doctor, further discuss possible procedures / injections / re-consideration of pain pump patient with weakness, not wanting to do much / not able to do much due to pain, was only home for ~3 days - discharged from [facility] for similar issue. didn't eat /drink much Code status: Full Dispo: SNF Time Spent Managing Pts Care (In Minutes): 35
[2021-02-05 06:19] LABS: Absolute Lymphocytes (CBC) 2.9 K/uL (0.7-4.9); Basophils % 0.8 % (0-1.3); Hematocrit 28.3 % (36.0-45.0); Lymphocytes % 28.4 % (15.3-44.8); MPV 8.6 fL (7.6-11.3); RBC Red Blood Cell Count 3.16 M/uL (3.86-4.86)
[2021-02-05 06:46] LABS: Albumin 1.9 g/dL (3.4-5.0); Bilirubin Total 0.4 mg/dL (0.2-1.0); Magnesium 2.2 mg/dL (1.8-2.4); Potassium 3.8 mmol/L (3.5-5.1); Protein, Total 5.8 g/dL (6.4-8.2)
[2021-02-05] MEDS: INSULIN -REGULAR HUMAN 50 UNIT/0.5 ML ML SQ SCH ×4 (07:30→21:00)
[2021-02-05] MEDS: MEDIHONEY 44 ML TOPICAL TUBE TOP SCH (09:00)
[2021-02-05] MEDS: carvediloL 6.25 MG TAB PO SCH ×2 (09:00→22:49)
[2021-02-05] MEDS: NICOTINE 14 MG/PAT TD SCH (09:15)
[2021-02-05] MEDS: DOCUSATE NA 100 MG CAP PO SCH ×2 (09:16→22:48)
[2021-02-05] MEDS: DOXYCYCLINE 100 MG CAP PO SCH ×2 (09:16→22:47)
[2021-02-05] MEDS: GABAPENTIN 100 MG CAP PO SCH ×3 (09:17→22:51)
[2021-02-05] MEDS: HEPARIN 5000 UNIT/ML 1 ML VIAL SQ SCH ×2 (09:17→22:50)
[2021-02-05] MEDS: HYDROCODONE/APAP 10/325 TAB PO SCH ×4 (09:18→22:48)
[2021-02-05] MEDS: ALPRAZOLAM 0.5 MG TABLET PO SCH ×3 (09:18→22:45)
--- NOTE | 2021-02-05 09:47 | P.PN ---
Subjective Date of Service: 02/05/21 Primary Care Provider: Dr. Uribe Chief Complaint: Acute renal failure, cellulitis Patient seen and examined at bedside, having significant pain to the left inner thigh wound. Pain seems to be out of proportion to physical exam findings. Review of Systems 10-point ROS is otherwise unremarkable Physical Examination - Vital Signs Temperature: 97.7 F Blood Pressure: 126/48 Pulse: 66 Respirations: 19 Pulse Ox (%): 99 - Studies Laboratory Last Values WBC 14.50 K/uL (4.3-10.9) H 02/04/21 00:00 RBC 3.84 M/uL (3.86-4.86) L 02/04/21 00:00 Hgb 11.2 g/dL (12.0-15.0) L 02/04/21 00:00 Hct 34.2 % (36.0-45.0) L 02/04/21 00:00 MCV 88.8 fL (80-100) 02/04/21 00:00 MCH 29.2 pg (27.0-35.0) 02/04/21 00:00 MCHC 32.8 g/dL (32.0-36.0) 02/04/21 00:00 RDW 16.6 % (12.1-15.2) H 02/04/21 00:00 Plt Count 343 K/uL (152-406) 02/04/21 00:00 MPV 9.1 fL (7.6-11.3) 02/04/21 00:00 Neutrophils % 75.8 % (41.7-73.7) H 02/04/21 00:00 Lymphocytes % 13.8 % (15.3-44.8) L 02/04/21 00:00 Monocytes % 7.3 % (3.3-12.3) 02/04/21 00:00 Eosinophils % 1.0 % (0-4.4) 02/04/21 00:00 Basophils % 2.1 % (0-1.3) H 02/04/21 00:00 Absolute Neutrophils 11.0 K/uL (1.8-8.0) H 02/04/21 00:00 Segmented Neutrophils 71 % (40-80) 02/04/21 00:00 Band Neutrophils 1 % (0-1) 02/04/21 00:00 Absolute Lymphocytes 2.0 K/uL (0.7-4.9) 02/04/21 00:00 Lymphocytes 21 % (15-42) 02/04/21 00:00 Monocytes 3 % (0-10) 02/04/21 00:00 Absolute Monocytes 1.1 K/uL (0.1-1.3) 02/04/21 00:00 Eosinophils 2 % (0-3) 02/04/21 00:00 Absolute Eosinophils 0.2 K/uL (0-0.5) 02/04/21 00:00 Basophils 2 % (0-1) H 02/04/21 00:00 Absolute Basophils 0.3 K/uL (0-0.5) 02/04/21 00:00 Platelet Estimate Adeq 02/04/21 00:00 Morphology Comment Not seen (NOT SEEN) 02/04/21 00:00 PT 17.0 SECONDS (9.5-12.5) H 02/04/21 00:00 INR 1.47 02/04/21 00:00 Sodium 144 mmol/L (136-145) 02/04/21 00:00 Potassium 4.1 mmol/L (3.5-5.1) 02/04/21 00:00 Chloride 104 mmol/L (98-107) 02/04/21 00:00 Carbon Dioxide 31 mmol/L (21-32) 02/04/21 00:00 BUN 57 mg/dL (7-18) H 02/04/21 00:00 Creatinine 3.49 mg/dL (0.55-1.3) H 02/04/21 00:00 Estimated GFR 16 mL/min (=/>90) L 02/04/21 00:00 Glucose 107 mg/dL (74-106) H 02/04/21 00:00 Lactic Acid 1.7 mmol/L (0.4-2.0) 02/04/21 00:00 Calcium 9.2 mg/dL (8.5-10.1) 02/04/21 00:00 Magnesium 2.3 mg/dL (1.8-2.4) D 02/04/21 00:00 Total Bilirubin 0.5 mg/dL (0.2-1.0) 02/04/21 00:00 Direct Bilirubin 0.2 mg/dL (0-0.2) 02/04/21 00:00 AST 17 U/L (15-37) 02/04/21 00:00 ALT 16 U/L (12-78) 02/04/21 00:00 Alkaline Phosphatase 135 U/L (45-117) H 02/04/21 00:00 Rapid Troponin I 0.17 ng/mL (0.0-0.045) H 02/04/21 00:00 NT-Pro-B Natriuret Pep 512 pg/mL (<125) H 02/04/21 00:00 Serum Total Protein 7.2 g/dL (6.4-8.2) 02/04/21 00:00 Albumin 2.4 g/dL (3.4-5.0) L 02/04/21 00:00 Globulin 4.8 g/dL (2.3-3.5) H 02/04/21 00:00 Albumin/Globulin Ratio 0.5 (1.1-1.8) L 02/04/21 00:00 Procalcitonin 0.52 ng/mL (<0.050) H 02/04/21 00:00 Urine pH 5.5 (5.0-7.0) 02/04/21 00:24 Ur Specific [place] >=1.030 (1.005-1.030) 02/04/21 00:24 Glucose (UA)(Auto) Negative (Negative) 02/04/21 00:24 Urine Ketones Trace (Negative) H 02/04/21 00:24 Urine Blood 3+ (Negative) H 02/04/21 00:24 Urine Nitrite Negative (Negative) 02/04/21 00:24 Ur Leukocyte Esterase Negative (Negative) 02/04/21 00:24 Urine RBC >50 /HPF (NONE SEEN) H 02/04/21 00:00 Urine WBC 20-50 /HPF (<5) H 02/04/21 00:00 Ur Squamous Epith Cells 10-20 /HPF (NONE SEEN) H 02/04/21 00:00 Ur Urothelial Cells 5-10 /HPF (NONE SEEN) 02/04/21 00:00 Urine Bacteria 20-50 /HPF (<20) H 02/04/21 00:00 Urine Yeast Few (NONE SEEN) 02/04/21 00:00 Urine Yeast (Budding) Present (NONE SEEN) H 02/04/21 00:00 Urine Culture Reflexed Not needed 02/04/21 00:00 Urine Total Protein 2+ (Negative) H 02/04/21 00:24 Influenza Type A RNA Negative (NEGATIVE) 02/04/21 00:00 Influenza Type B RNA Negative (NEGATIVE) 02/04/21 00:00 SARS-CoV-2 RNA (RT-PCR) Negative (NEGATIVE) 02/04/21 00:00 Microbiology Data (last 24 hrs): 02/04/21 00:00 Clean Catch Urine [place] Count - Final BETWEEN 10,000 & 100,000 CFU/ML 02/04/21 00:00 Clean Catch Urine - Final MIXED KATHRYN. Assessment And Plan - Plan Physical Exam: General: Obese, in pain HEENT: Atraumatic Neck: Supple, 2+ carotid pulse no bruit Respiratory: Clear to auscultation bilaterally, Normal air movement Cardiovascular: Normal pulses, Regular rate/rhythm Capillary refill: <2 Seconds Gastrointestinal: Normal bowel sounds, Soft and benign Musculoskeletal: No clubbing, No contractures Integumentary: Other (Right upper inner thigh a wound: Base of wound majority granulation tissue, minimal slough tissue present. No clinical signs of infection, no lymphatic streaking noted. No foul odor or drainage noted to wound.) Urinary: Mike catheter Conclusions/Impression: Antibiotics: Doxycycline Start: 02/04 Assessment/plan Right upper inner thigh wound Wound care: Apply Medihoney to area and cover with gauze. Change Q Wednesday or p.r.n. if soiled or removed. Continue doxycycline for a total of 7 days. Leukocytosis Continue to monitor WBC trend. Patient afebrile, continue doxycycline at this t keiko. TEE on CKD stage 3 Nephrology on case, avoid nephrotoxic agents. Renally dose all antibiotic with renal excretion Diabetes Continue insulin Morbid obesity/CHF Medical management per primary team Plan of care discussed with Dr. Duke Thank you for consultation.
--- NOTE | 2021-02-05 20:33 | P.PN ---
Date of Service: 02/05/21 Vital Signs Temp Pulse Resp BP Pulse Ox 97.7 F 87 18 180/73 H 95 02/05/21 20:00 02/05/21 20:00 02/05/21 20:00 02/05/21 20:00 02/05/21 20:00 Medications Acetaminophen (Acetaminophen 500 Mg Tab) 500 mg PO Q4HP PRN PRN Reason: TEMP > 100' F Hydrocodone Bitart/Acetaminophen (Hydrocodone/Apap 10/325 Tab) 1 tab PO QID [facility] Last Admin: 02/05/21 17:33 Dose: 1 tab Documented by: Alprazolam (Alprazolam 0.5 Mg Tablet) 0.5 mg PO TID [facility] Last Admin: 02/05/21 14:15 Dose: 0.5 mg Documented by: Carvedilol (Carvedilol 6.25 Mg Tab) 12.5 mg PO BID [facility] Last Admin: 02/05/21 09:00 Dose: Not Given Documented by: Clonidine HCl (Clonidine Hcl 0.1 Mg Tab) 0.2 mg PO DAILY [facility] Last Admin: 02/05/21 09:16 Dose: Not Given Documented by: Docusate Sodium (Docusate Na 100 Mg Cap) 100 mg PO BID [facility] Last Admin: 02/05/21 09:16 Dose: 100 mg Documented by: Doxycycline Monohydrate (Doxycycline 100 Mg Cap) 100 mg PO BID [facility]; Protocol Last Admin: 02/05/21 09:16 Dose: 100 mg Documented by: Duloxetine HCl (Duloxetine 30 Mg Cap) 30 mg PO BEDTIME [facility] Last Admin: 02/04/21 20:56 Dose: 30 mg Documented by: Emollient Gel (Medihoney 44 Ml Topical Tube) 1 appl TOP DAILY [facility] Last Admin: 02/05/21 09:00 Dose: 1 alyson Documented by: Gabapentin (Gabapentin 100 Mg Cap) 200 mg PO TID [facility] Last Admin: 02/05/21 14:16 Dose: 200 mg Documented by: Heparin Sodium (Porcine) (Heparin 5000 Unit/Ml 1 Ml Vial) 5,000 unit SQ Q12HR [facility] Last Admin: 02/05/21 09:17 Dose: 5,000 unit Documented by: Sodium Chloride (Sodium Chloride 0.45%) 1,000 mls @ 100 mls/hr IV .Q10H [facility] Last Admin: 02/05/21 14:16 Dose: 1,000 mls Documented by: Insulin Human Regular (Insulin -Regular Human 50 Unit/0.5 Ml Ml) 0 unit SQ ACHS [facility]; Protocol Last Admin: 02/05/21 16:30 Dose: Not Given Documented by: Nicotine (Nicotine 14 Mg/Pat) 14 mg TD DAILY [facility] Last Admin: 02/05/21 09:15 Dose: 14 mg Documented by: Ondansetron HCl (Ondansetron 4 Mg/2 Ml Vial) 4 mg IV Q6HP PRN PRN Reason: NAUSEA / VOMITING Sodium Chloride (Flush Normal Saline 10 Ml) 10 ml IV BID [facility] Last Admin: 02/05/21 09:00 Dose: 10 ml Documented by: Microbiology Results 02/04/21 00:00 Clean Catch Urine [place] Count - Final BETWEEN 10,000 & 100,000 CFU/ML 02/04/21 00:00 Clean Catch Urine - Final MIXED KATHRYN. 02/04/21 00:00 Blood - Blood Aerobic Blood Culture - Preliminary No growth in 24 hours. 02/04/21 00:00 Blood - Blood Anaerobic Blood Culture - Preliminary No growth in 24 hours. 02/04/21 00:15 Blood - Blood Aerobic Blood Culture - Preliminary No growth in 24 hours. 02/04/21 00:15 Blood - Blood Anaerobic Blood Culture - Preliminary No growth in 24 hours. Assessment/ Plan: Nephrology Progress Note Persistent LLE pain No chest pain or dyspnea No acute events overnight Vitals, medications blood work and imaging reviewed in the chart General: In no apparent distress, Cooperative HEENT: Atraumatic Neck: Supple Respiratory: Right basilar rales Cardiovascular: No edema, Regular rate/rhythm Gastrointestinal: Soft and benign, Non-distended Musculoskeletal: No clubbing, No contractures, LLE Tenderness Integumentary: No rashes, No cyanosis Neurological: Normal speech Laboratory Data (last 24 hrs) 02/04/21 00:00: PT 17.0 H, INR 1.47 02/04/21 00:00: WBC 14.50 H, Hgb 11.2 L, Hct 34.2 L, Plt Count 343 02/04/21 00:00: Sodium 144, Potassium 4.1, BUN 57 H, Creatinine 3.49 H, Glucose 107 H, Magnesium 2.3 D, Total Bilirubin 0.5, AST 17, ALT 16, Alkaline Phosphatase 135 H Imagings Data: EXAM DESCRIPTION: US - Renal Ultrasound-Complete - 02/04/2021 6:06 am CLINICAL HISTORY: Acute renal failure COMPARISON: 2017 FINDINGS: The right kidney measures 10 cm with a mildly increased echotexture. The left kidney measures 9 cm with a mildly increased l echotexture. 1.3 centimeters cyst Hydronephrosis is not seen. Images of the bladder were not obtained as the patient was pain wanted the exam to end IMPRESSION: Mildly increased renal echotexture consistent with parenchymal disease 1.3 centimeter left renal cyst EXAM DESCRIPTION: RADChest Single View02/04/2021 1:13 am CLINICAL HISTORY: Cough COMPARISON: December 2020 FINDINGS: Elevation right hemidiaphragm with areas of subsegmental atelectasis within the right lung. Left lung appears clear of acute infiltrate. Heart is mildly enlarged. Pacemaker leads in place EXAM DESCRIPTION: CT - Chest Abd Pelvis Wo Con - 02/04/2021 6:30 am CLINICAL HISTORY: 65 years, Female, PAIN; ABD DISTENTION COMPARISON: 12/02/2019 FINDINGS: Multiple transaxial tomograms of the chest, abdomen and pelvis were obtained from the lung apices through the ischial tuberosities, utilizing 5 mm slice thickness at 5 mm interval reconstruction without the administration of IV contrast. Multiplanar reformats in the sagittal and coronal plane were generated and reviewed. This exam was performed according to our departmental dose-optimization protocol, which includes automated exposure control, adjustment of the mA and/or kV according to patient size and/or use of iterative reconstruction technique. Chest: The lungs parenchyma demonstrate decreased lung volume with compressive atelectatic changes right lung base and mild elevation of the right hemidiaphragm. No significant masses and/or consolidations are identified. The left lung demonstrate to be within normal limits. The trachea mainstem bronchus demonstrate to be normal. There is no significant pleural and/or pericardial effusions. The heart demonstrate to be normal in size. There is a pacemaker via left subclavian. There is atherosclerotic disease of the thoracic aorta with no significant aneurysmatic dilatation. There is no significant mediastinal and/or hilar lymphadenopathy. The axillary regions demonstrate to be clear. The bone windows demonstrate no significant skeletal lesions. Abdomen and pelvis: Grossly the unopacified liver demonstrate again the presence of tiny hypodensity within the medial segment left hepatic lobe corresponding small cyst. Surgical clips within the gallbladder fossa correspond to previous cholecystectomy. The spleen, pancreas and adrenal glands demonstrate to be grossly within normal limits. The kidneys demonstrate vascular calcifications. No definitive nephrolithiasis and/or hydronephrosis. The unopacified stomach, small bowel and large bowel demonstrate to be within normal limits. Fecal residue within the large bowel suggests the possibility of the constipation/mild fecal stasis. The urinary bladder demonstrate presence of a Mike catheter. There is no evidence for retroperitoneal lymphadenopathy. There is no evidence for ascites. There is atherosclerotic disease of the aorta extending into the iliac arteries. Again there is a IVC filter within the right common iliac vein/distal inferior vena cava The bone windows demonstrate posterior transpedicular screw fixation device L2- S1. IMPRESSION: No acute intrathoracic, abdominal, or pelvic process. Fecal residue within the large bowel suggesting constipation. Atherosclerotic disease of the thoracic and abdominal aorta with. Status post cholecystectomy. Conclusions/Impression: TEE likely due to hypovolemia CKD III -No NSAIDs -Continue IVF 1/2NS HTN complicated hypotension -Continue IVF -Holding parameters for Clonidine Diastolic CHF, chronic -Low sodium diet -Hold furosemide DM II with CKD -RISS Moderate malnutrition -Encourage nutrition Anemia in chronic illness -Monitor H&H Gout Slow transit constipation -Continue Colace -Lactulose PRN Acute cystitis with hematuria -Continue abx -ID following LLE Pain -Increase Gabapentin
[2021-02-05] MEDS: DULOXETINE 30 MG CAP PO SCH (22:49)
[2021-02-06] MEDS: NACHLORIDE 0.45% 1,000 ML IV SCH (02:53)
[2021-02-06] MEDS: HYDRALAZINE HCL 20 MG/ML VIAL IV PRN (04:02)
[2021-02-06] MEDS: ACETAMINOPHEN 500 MG TAB PO PRN (05:37)
--- NOTE | 2021-02-06 05:57 | P.PN ---
Date of Service: 02/06/21 Subjective: no acute events overnight. pain slightly improved, norco helps, but patient feels it wears off too early at times. Other times, patient will have a sudden pain that is short lasting but severe no new complaints ROS: 10 point ROS as noted above, otherwise negative Physical exam GEN: Alert, oriented, NAD HEENT: Normal conjunctiva, sclera anicteric CV: Regular rate and rhythm, trace b/l pedal edema Pulm: Nonlabored respiration on room air ABD: Soft, nontender, nondistended MSK: b/l lower leg tenderness Integumentary: R upper thigh superficial wound, pink/red granulation tissue, no purulent drainage Neuro: Normal speech, normal affect, limited lower extremity ROM on my exam secondary to pain Problem List ARFacute worsening of CKD 3 NSTEMI with underlying chronic diastolic congestive heart failure Cellulitis with ulcerations to right lower extremity/mons pubis Diabetes type 2 with hyperglycemia Polyneuropathy/chronic/intractable pain HTN TEE improving, nephrology consulted, given IVF. pt reported decrease PO intake, seems dry NSTEMI - troponin stable at 0.17, no chest pain, suspect troponin leak, recently had admission with higher levels of troponin and cardiology consulted with no plans for further testing R upper /inner thigh wound, appears to be healing, slowly. does not appear infected, no purulent drainage. vanc/cef discontinued, ID consulted and recommended continue coverage with Doxy for now leukocytosis improved. CRP significantly elevated, not specific. similarly, procal mildly elevated, both improved sliding scale / accucheks intractable / chronic pain - polyneuropathy - had bad experience with pain pump in past, pain was managed ok yesterday but worse this morning again. continue on home regimen of [place] 10s q6h PRN, initially ordered dilaudid PO, but patient stated better results from norco, discussed needs to f/u with pain doctor and further discuss possible procedures / injections / re-consideration of pain pump patient with weakness, not wanting to do much / not able to do much due to pain, was only home for ~3 days - discharged from [facility] for similar issue. didn't eat /drink much while home TEE seems pre-renal, secondary to decreased PO intake renal function improving, dc IVF can take clonidine up to TID for HTN - edited order to reflect this Code status: Full Dispo: SNF Time Spent Managing Pts Care (In Minutes): 35
[2021-02-06] MEDS ORDERED: VANCOMYCIN 1.5 GM in NA CHLORIDE 0.9% 500 ML IVPB SCH (06:00)
[2021-02-06 06:22] LABS: Absolute Lymphocytes (CBC) 1.8 K/uL (0.7-4.9); Basophils % 0.7 % (0-1.3); Hematocrit 32.1 % (36.0-45.0); Lymphocytes % 14.6 % (15.3-44.8); MPV 8.4 fL (7.6-11.3); RBC Red Blood Cell Count 3.63 M/uL (3.86-4.86)
[2021-02-06 06:59] LABS: Bilirubin Total 0.5 mg/dL (0.2-1.0); Magnesium 1.7 mg/dL (1.8-2.4); Phosphorus 1.8 mg/dL (2.5-4.9); Potassium 3.6 mmol/L (3.5-5.1); Protein, Total 6.3 g/dL (6.4-8.2); Uric Acid 10.5 mg/dL (2.6-6.0)
[2021-02-06] MEDS: INSULIN -REGULAR HUMAN 50 UNIT/0.5 ML ML SQ SCH ×4 (07:30→21:00)
[2021-02-06] MEDS: cloNIDine HCL 0.1 MG TAB PO SCH ×3 (07:34→22:02)
[2021-02-06] MEDS: MEDIHONEY 44 ML TOPICAL TUBE TOP SCH (09:00)
[2021-02-06] MEDS: carvediloL 6.25 MG TAB PO SCH ×2 (09:30→21:45)
[2021-02-06] MEDS: DOCUSATE NA 100 MG CAP PO SCH ×2 (09:30→21:44)
[2021-02-06] MEDS: DOXYCYCLINE 100 MG CAP PO SCH ×2 (09:30→21:46)
[2021-02-06] MEDS: ALPRAZOLAM 0.5 MG TABLET PO SCH ×3 (09:30→21:43)
[2021-02-06] MEDS: GABAPENTIN 100 MG CAP PO SCH ×3 (09:30→21:46)
[2021-02-06] MEDS: HEPARIN 5000 UNIT/ML 1 ML VIAL SQ SCH ×2 (09:31→21:45)
[2021-02-06] MEDS: HYDROCODONE/APAP 10/325 TAB PO SCH ×4 (09:31→21:46)
[2021-02-06] MEDS: NICOTINE 14 MG/PAT TD SCH (09:32)
--- NOTE | 2021-02-06 09:49 | P.PN ---
Subjective Date of Service: 02/06/21 Primary Care Provider: Dr. Uribe Chief Complaint: Acute renal failure, cellulitis Patient seen and examined at bedside, no acute events. Sight increase in WBC today, continue to monitor. Review of Systems 10-point ROS is otherwise unremarkable Physical Examination - Vital Signs Temperature: 97 F Blood Pressure: 182/72 Pulse: 84 Respirations: 18 Pulse Ox (%): 95 - Studies Laboratory Last Values WBC 14.50 K/uL (4.3-10.9) H 02/04/21 00:00 RBC 3.84 M/uL (3.86-4.86) L 02/04/21 00:00 Hgb 11.2 g/dL (12.0-15.0) L 02/04/21 00:00 Hct 34.2 % (36.0-45.0) L 02/04/21 00:00 MCV 88.8 fL (80-100) 02/04/21 00:00 MCH 29.2 pg (27.0-35.0) 02/04/21 00:00 MCHC 32.8 g/dL (32.0-36.0) 02/04/21 00:00 RDW 16.6 % (12.1-15.2) H 02/04/21 00:00 Plt Count 343 K/uL (152-406) 02/04/21 00:00 MPV 9.1 fL (7.6-11.3) 02/04/21 00:00 Neutrophils % 75.8 % (41.7-73.7) H 02/04/21 00:00 Lymphocytes % 13.8 % (15.3-44.8) L 02/04/21 00:00 Monocytes % 7.3 % (3.3-12.3) 02/04/21 00:00 Eosinophils % 1.0 % (0-4.4) 02/04/21 00:00 Basophils % 2.1 % (0-1.3) H 02/04/21 00:00 Absolute Neutrophils 11.0 K/uL (1.8-8.0) H 02/04/21 00:00 Segmented Neutrophils 71 % (40-80) 02/04/21 00:00 Band Neutrophils 1 % (0-1) 02/04/21 00:00 Absolute Lymphocytes 2.0 K/uL (0.7-4.9) 02/04/21 00:00 Lymphocytes 21 % (15-42) 02/04/21 00:00 Monocytes 3 % (0-10) 02/04/21 00:00 Absolute Monocytes 1.1 K/uL (0.1-1.3) 02/04/21 00:00 Eosinophils 2 % (0-3) 02/04/21 00:00 Absolute Eosinophils 0.2 K/uL (0-0.5) 02/04/21 00:00 Basophils 2 % (0-1) H 02/04/21 00:00 Absolute Basophils 0.3 K/uL (0-0.5) 02/04/21 00:00 Platelet Estimate Adeq 02/04/21 00:00 Morphology Comment Not seen (NOT SEEN) 02/04/21 00:00 PT 17.0 SECONDS (9.5-12.5) H 02/04/21 00:00 INR 1.47 02/04/21 00:00 Sodium 144 mmol/L (136-145) 02/04/21 00:00 Potassium 4.1 mmol/L (3.5-5.1) 02/04/21 00:00 Chloride 104 mmol/L (98-107) 02/04/21 00:00 Carbon Dioxide 31 mmol/L (21-32) 02/04/21 00:00 BUN 57 mg/dL (7-18) H 02/04/21 00:00 Creatinine 3.49 mg/dL (0.55-1.3) H 02/04/21 00:00 Estimated GFR 16 mL/min (=/>90) L 02/04/21 00:00 Glucose 107 mg/dL (74-106) H 02/04/21 00:00 Lactic Acid 1.7 mmol/L (0.4-2.0) 02/04/21 00:00 Calcium 9.2 mg/dL (8.5-10.1) 02/04/21 00:00 Magnesium 2.3 mg/dL (1.8-2.4) D 02/04/21 00:00 Total Bilirubin 0.5 mg/dL (0.2-1.0) 02/04/21 00:00 Direct Bilirubin 0.2 mg/dL (0-0.2) 02/04/21 00:00 AST 17 U/L (15-37) 02/04/21 00:00 ALT 16 U/L (12-78) 02/04/21 00:00 Alkaline Phosphatase 135 U/L (45-117) H 02/04/21 00:00 Rapid Troponin I 0.17 ng/mL (0.0-0.045) H 02/04/21 00:00 NT-Pro-B Natriuret Pep 512 pg/mL (<125) H 02/04/21 00:00 Serum Total Protein 7.2 g/dL (6.4-8.2) 02/04/21 00:00 Albumin 2.4 g/dL (3.4-5.0) L 02/04/21 00:00 Globulin 4.8 g/dL (2.3-3.5) H 02/04/21 00:00 Albumin/Globulin Ratio 0.5 (1.1-1.8) L 02/04/21 00:00 Procalcitonin 0.52 ng/mL (<0.050) H 02/04/21 00:00 Urine pH 5.5 (5.0-7.0) 02/04/21 00:24 Ur Specific [place] >=1.030 (1.005-1.030) 02/04/21 00:24 Glucose (UA)(Auto) Negative (Negative) 02/04/21 00:24 Urine Ketones Trace (Negative) H 02/04/21 00:24 Urine Blood 3+ (Negative) H 02/04/21 00:24 Urine Nitrite Negative (Negative) 02/04/21 00:24 Ur Leukocyte Esterase Negative (Negative) 02/04/21 00:24 Urine RBC >50 /HPF (NONE SEEN) H 02/04/21 00:00 Urine WBC 20-50 /HPF (<5) H 02/04/21 00:00 Ur Squamous Epith Cells 10-20 /HPF (NONE SEEN) H 02/04/21 00:00 Ur Urothelial Cells 5-10 /HPF (NONE SEEN) 02/04/21 00:00 Urine Bacteria 20-50 /HPF (<20) H 02/04/21 00:00 Urine Yeast Few (NONE SEEN) 02/04/21 00:00 Urine Yeast (Budding) Present (NONE SEEN) H 02/04/21 00:00 Urine Culture Reflexed Not needed 02/04/21 00:00 Urine Total Protein 2+ (Negative) H 02/04/21 00:24 Influenza Type A RNA Negative (NEGATIVE) 02/04/21 00:00 Influenza Type B RNA Negative (NEGATIVE) 02/04/21 00:00 SARS-CoV-2 RNA (RT-PCR) Negative (NEGATIVE) 02/04/21 00:00 Microbiology Data (last 24 hrs): 02/04/21 00:00 Clean Catch Urine [place] Count - Final BETWEEN 10,000 & 100,000 CFU/ML 02/04/21 00:00 Clean Catch Urine - Final MIXED KATHRYN. Assessment And Plan - Plan Physical Exam: General: Obese, in pain HEENT: Atraumatic Neck: Supple, 2+ carotid pulse no bruit Respiratory: Clear to auscultation bilaterally, Normal air movement Cardiovascular: Normal pulses, Regular rate/rhythm Capillary refill: <2 Seconds Gastrointestinal: Normal bowel sounds, Soft and benign Musculoskeletal: No clubbing, No contractures Integumentary: Other (Right upper inner thigh a wound: Base of wound majority granulation tissue, minimal slough tissue present. No clinical signs of infection, no lymphatic streaking noted. No foul odor or drainage noted to wound.) Urinary: Mike catheter Conclusions/Impression: Antibiotics: Doxycycline Start: 02/04 Assessment/plan Right upper inner thigh wound Wound care: Apply Medihoney to area and cover with gauze. Change Q Wednesday or p.r.n. if soiled or removed. Continue doxycycline for a total of 7 days. Leukocytosis Continue to monitor WBC trend. Patient afebrile, continue doxycycline at this time. TEE on CKD stage 3 Nephrology on case, avoid nephrotoxic agents. Renally dose all antibiotic with renal excretion Diabetes Continue insulin Morbid obesity/CHF Medical management per primary team Plan of care discussed with Dr. Duke Thank you for consultation.
--- NOTE | 2021-02-06 20:17 | P.PN ---
Date of Service: 02/06/21 Vital Signs Temp Pulse Resp BP Pulse Ox 97.9 F 73 18 143/63 H 96 02/06/21 16:00 02/06/21 16:00 02/06/21 16:00 02/06/21 16:00 02/06/21 16:00 Medications Acetaminophen (Acetaminophen 500 Mg Tab) 500 mg PO Q4HP PRN PRN Reason: TEMP > 100' F Last Admin: 02/06/21 05:37 Dose: 500 mg Documented by: Hydrocodone Bitart/Acetaminophen (Hydrocodone/Apap 10/325 Tab) 1 tab PO QID [facility] Last Admin: 02/06/21 17:58 Dose: 1 tab Documented by: Alprazolam (Alprazolam 0.5 Mg Tablet) 0.5 mg PO TID [facility] Last Admin: 02/06/21 14:16 Dose: 0.5 mg Documented by: Carvedilol (Carvedilol 6.25 Mg Tab) 12.5 mg PO BID [facility] Last Admin: 02/06/21 09:30 Dose: 12.5 mg Documented by: Clonidine HCl (Clonidine Hcl 0.1 Mg Tab) 0.2 mg PO Q8H [facility] Last Admin: 02/06/21 14:19 Dose: 0.2 mg Documented by: Docusate Sodium (Docusate Na 100 Mg Cap) 100 mg PO BID [facility] Last Admin: 02/06/21 09:30 Dose: 100 mg Documented by: Doxycycline Monohydrate (Doxycycline 100 Mg Cap) 100 mg PO BID [facility]; Protocol Last Admin: 02/06/21 09:30 Dose: 100 mg Documented by: Duloxetine HCl (Duloxetine 30 Mg Cap) 30 mg PO BEDTIME [facility] Last Admin: 02/05/21 22:49 Dose: 30 mg Documented by: Emollient Gel (Medihoney 44 Ml Topical Tube) 1 appl TOP DAILY [facility] Last Admin: 02/06/21 09:00 Dose: 1 alyson Documented by: Gabapentin (Gabapentin 100 Mg Cap) 200 mg PO TID [facility] Last Admin: 02/06/21 14:16 Dose: 200 mg Documented by: Heparin Sodium (Porcine) (Heparin 5000 Unit/Ml 1 Ml Vial) 5,000 unit SQ Q12HR [facility] Last Admin: 02/06/21 09:31 Dose: 5,000 unit Documented by: Hydralazine HCl (Hydralazine Hcl 20 Mg/Ml Vial) 10 mg IV Q6HP PRN PRN Reason: Titrate to SBP (MUST DEFINE) Last Admin: 02/06/21 04:02 Dose: 10 mg Documented by: Insulin Human Regular (Insulin -Regular Human 50 Unit/0.5 Ml Ml) 0 unit SQ ACHS [facility]; Protocol Last Admin: 02/06/21 16:30 Dose: Not Given Documented by: Nicotine (Nicotine 14 Mg/Pat) 14 mg TD DAILY [facility] Last Admin: 02/06/21 09:32 Dose: 14 mg Documented by: Ondansetron HCl (Ondansetron 4 Mg/2 Ml Vial) 4 mg IV Q6HP PRN PRN Reason: NAUSEA / VOMITING Sodium Chloride (Flush Normal Saline 10 Ml) 10 ml IV BID [facility] Last Admin: 02/06/21 09:00 Dose: 10 ml Documented by: Microbiology Results 02/04/21 00:00 Clean Catch Urine [place] Count - Final BETWEEN 10,000 & 100,000 CFU/ML 02/04/21 00:00 Clean Catch Urine - Final MIXED KATHRYN. 02/04/21 00:00 Blood - Blood Aerobic Blood Culture - Preliminary No growth in 24 hours. 02/04/21 00:00 Blood - Blood Anaerobic Blood Culture - Preliminary No growth in 24 hours. 02/04/21 00:15 Blood - Blood Aerobic Blood Culture - Preliminary No growth in 24 hours. 02/04/21 00:15 Blood - Blood Anaerobic Blood Culture - Preliminary No growth in 24 hours. Assessment/ Plan: Nephrology Progress Note Persistent LLE pain No chest pain or dyspnea No acute events overnight Vitals, medications blood work and imaging reviewed in the chart General: In no apparent distress, Cooperative HEENT: Atraumatic Neck: Supple Respiratory: CTA Cardiovascular: No edema, Regular rate/rhythm Gastrointestinal: Soft and benign, Non-distended Musculoskeletal: No clubbing, No contractures, LLE Tenderness Integumentary: No rashes, No cyanosis Neurological: Normal speech Laboratory Data (last 24 hrs) 02/04/21 00:00: PT 17.0 H, INR 1.47 02/04/21 00:00: WBC 14.50 H, Hgb 11.2 L, Hct 34.2 L, Plt Count 343 02/04/21 00:00: Sodium 144, Potassium 4.1, BUN 57 H, Creatinine 3.49 H, Glucose 107 H, Magnesium 2.3 D, Total Bilirubin 0.5, AST 17, ALT 16, Alkaline Phosphatase 135 H Imagings Data: EXAM DESCRIPTION: US - Renal Ultrasound-Complete - 02/04/2021 6:06 am CLINICAL HISTORY: Acute renal failure COMPARISON: 2017 FINDINGS: The right kidney measures 10 cm with a mildly increased echotexture. The left kidney measures 9 cm with a mildly increased l echotexture. 1.3 centimeters cyst Hydronephrosis is not seen. Images of the bladder were not obtained as the patient was pain wanted the exam to end IMPRESSION: Mildly increased renal echotexture consistent with parenchymal disease 1.3 centimeter left renal cyst EXAM DESCRIPTION: RADChest Single View02/04/2021 1:13 am CLINICAL HISTORY: Cough COMPARISON: December 2020 FINDINGS: Elevation right hemidiaphragm with areas of subsegmental atelectasis within the right lung. Left lung appears clear of acute infiltrate. Heart is mildly enlarged. Pacemaker leads in place EXAM DESCRIPTION: CT - Chest Abd Pelvis Wo Con - 02/04/2021 6:30 am CLINICAL HISTORY: 65 years, Female, PAIN; ABD DISTENTION COMPARISON: 12/02/2019 FINDINGS: Multiple transaxial tomograms of the chest, abdomen and pelvis were obtained from the lung apices through the ischial tuberosities, utilizing 5 mm slice thickness at 5 mm interval reconstruction without the administration of IV contrast. Multiplanar reformats in the sagittal and coronal plane were generated and r eviewed. This exam was performed according to our departmental dose-optimization protocol, which includes automated exposure control, adjustment of the mA and/or kV according to patient size and/or use of iterative reconstruction technique. Chest: The lungs parenchyma demonstrate decreased lung volume with compressive atelectatic changes right lung base and mild elevation of the right hemidiaphrag m. No significant masses and/or consolidations are identified. The left lung demonstrate to be within normal limits. The trachea mainstem bronchus demonstrate to be normal. There is no significant pleural and/or pericardial effusions. The heart demonstrate to be normal in size. There is a pacemaker via left subclavian. There is atherosclerotic disease of the thoracic aorta with no significant aneurysmatic dilatation. There is no significant mediastinal and/or hilar lymphadenopathy. The axillary regions demonstrate to be clear. The bone windows demonstrate no significant skeletal lesions. Abdomen and pelvis: Grossly the unopacified liver demonstrate again the presence of tiny hypodensity within the medial segment left hepatic lobe corresponding small cyst. Surgical clips within the gallbladder fossa correspond to previous cholecystectomy. The spleen, pancreas and adrenal glands demonstrate to be grossly within normal limits. The kidneys demonstrate vascular calcifications. No definitive nephrolithiasis and/or hydronephrosis. The unopacified stomach, small bowel and large bowel demonstrate to be within normal limits. Fecal residue within the large bowel suggests the possibility of the constipation/mild fecal stasis. The urinary bladder demonstrate presence of a Mike catheter. There is no evidence for retroperitoneal lymphadenopathy. There is no evidence for ascites. There is atherosclerotic disease of the aorta extending into the iliac arteries. Again there is a IVC filter within the right common iliac vein/distal inferior vena cava The bone windows demonstrate posterior transpedicular screw fixation device L2- S1. IMPRESSION: No acute intrathoracic, abdominal, or pelvic process. Fecal residue within the large bowel suggesting constipation. Atherosclerotic disease of the thoracic and abdominal aorta with. Status post cholecystectomy. Conclusions/Impression: TEE likely due to hypovolemia CKD III -No NSAIDs -Discontinue IVF 1/2NS HypoPO4 -Encourage nutrition Hypomagnesemia -Start MagOx qhs HTN with CKD/ CHF Hypotension resolved -Continue Clonidine Diastolic CHF, chronic -Low sodium diet -Hold furosemide DM II with CKD -RISS Moderate malnutrition -Encourage nutrition Anemia in chronic illness -Monitor H&H Gout Slow transit constipation -Continue Colace -Start MagOx qhs -Lactulose PRN Acute cystitis with hematuria -Continue abx -ID following LLE Pain -Continue Gabapentin Case reviewed with Dr. Canas
[2021-02-06] MEDS ORDERED: MAGNESIUM OXIDE 400 MG TAB PO SCH (21:00)
[2021-02-06] MEDS: DULOXETINE 30 MG CAP PO SCH (21:44)
[2021-02-07 00:46] VITALS: O2SAT 70
[2021-02-07] MEDS: ACETAMINOPHEN 500 MG TAB PO PRN (04:07)
[2021-02-07] MEDS: cloNIDine HCL 0.1 MG TAB PO SCH ×2 (05:15→13:49)
[2021-02-07 06:18] LABS: Absolute Lymphocytes (CBC) 2.2 K/uL (0.7-4.9); Basophils % 0.8 % (0-1.3); Hematocrit 28.6 % (36.0-45.0); Lymphocytes % 23.8 % (15.3-44.8); MPV 8.5 fL (7.6-11.3); RBC Red Blood Cell Count 3.21 M/uL (3.86-4.86)
[2021-02-07 06:26] LABS: Albumin 1.7 g/dL (3.4-5.0); Bilirubin Total 0.3 mg/dL (0.2-1.0); Magnesium 1.7 mg/dL (1.8-2.4); Phosphorus 2.5 mg/dL (2.5-4.9); Potassium 3.8 mmol/L (3.5-5.1); Protein, Total 5.8 g/dL (6.4-8.2)
[2021-02-07] MEDS: INSULIN -REGULAR HUMAN 50 UNIT/0.5 ML ML SQ SCH ×2 (07:30→11:30)
[2021-02-07] MEDS: DOCUSATE NA 100 MG CAP PO SCH (08:32)
[2021-02-07] MEDS: GABAPENTIN 100 MG CAP PO SCH ×2 (08:32→13:48)
[2021-02-07] MEDS: DOXYCYCLINE 100 MG CAP PO SCH (08:32)
[2021-02-07] MEDS: carvediloL 6.25 MG TAB PO SCH (08:33)
[2021-02-07] MEDS: HYDROCODONE/APAP 10/325 TAB PO SCH ×2 (08:33→13:49)
[2021-02-07] MEDS: NICOTINE 14 MG/PAT TD SCH (08:36)
[2021-02-07] MEDS: HEPARIN 5000 UNIT/ML 1 ML VIAL SQ SCH (08:36)
[2021-02-07] MEDS: MEDIHONEY 44 ML TOPICAL TUBE TOP SCH (08:37)
[2021-02-07] MEDS: HYDRALAZINE HCL 20 MG/ML VIAL IV PRN (08:40)
[2021-02-07] MEDS: ALPRAZOLAM 0.5 MG TABLET PO SCH ×2 (08:40→13:48)
--- NOTE | 2021-02-07 09:51 | P.PN ---
Subjective Date of Service: 02/07/21 Primary Care Provider: Dr. Uribe Chief Complaint: Acute renal failure, cellulitis Patient seen and examined at bedside, WBC downtrending. Review of Systems 10-point ROS is otherwise unremarkable Physical Examination - Vital Signs Temperature: 96.9 F Blood Pressure: 191/82 Pulse: 69 Respirations: 18 Pulse Ox (%): 100 - Studies Laboratory Last Values WBC 14.50 K/uL (4.3-10.9) H 02/04/21 00:00 RBC 3.84 M/uL (3.86-4.86) L 02/04/21 00:00 Hgb 11.2 g/dL (12.0-15.0) L 02/04/21 00:00 Hct 34.2 % (36.0-45.0) L 02/04/21 00:00 MCV 88.8 fL (80-100) 02/04/21 00:00 MCH 29.2 pg (27.0-35.0) 02/04/21 00:00 MCHC 32.8 g/dL (32.0-36.0) 02/04/21 00:00 RDW 16.6 % (12.1-15.2) H 02/04/21 00:00 Plt Count 343 K/uL (152-406) 02/04/21 00:00 MPV 9.1 fL (7.6-11.3) 02/04/21 00:00 Neutrophils % 75.8 % (41.7-73.7) H 02/04/21 00:00 Lymphocytes % 13.8 % (15.3-44.8) L 02/04/21 00:00 Monocytes % 7.3 % (3.3-12.3) 02/04/21 00:00 Eosinophils % 1.0 % (0-4.4) 02/04/21 00:00 Basophils % 2.1 % (0-1.3) H 02/04/21 00:00 Absolute Neutrophils 11.0 K/uL (1.8-8.0) H 02/04/21 00:00 Segmented Neutrophils 71 % (40-80) 02/04/21 00:00 Band Neutrophils 1 % (0-1) 02/04/21 00:00 Absolute Lymphocytes 2.0 K/uL (0.7-4.9) 02/04/21 00:00 Lymphocytes 21 % (15-42) 02/04/21 00:00 Monocytes 3 % (0-10) 02/04/21 00:00 Absolute Monocytes 1.1 K/uL (0.1-1.3) 02/04/21 00:00 Eosinophils 2 % (0-3) 02/04/21 00:00 Absolute Eosinophils 0.2 K/uL (0-0.5) 02/04/21 00:00 Basophils 2 % (0-1) H 02/04/21 00:00 Absolute Basophils 0.3 K/uL (0-0.5) 02/04/21 00:00 Platelet Estimate Adeq 02/04/21 00:00 Morphology Comment Not seen (NOT SEEN) 02/04/21 00:00 PT 17.0 SECONDS (9.5-12.5) H 02/04/21 00:00 INR 1.47 02/04/21 00:00 Sodium 144 mmol/L (136-145) 02/04/21 00:00 Potassium 4.1 mmol/L (3.5-5.1) 02/04/21 00:00 Chloride 104 mmol/L (98-107) 02/04/21 00:00 Carbon Dioxide 31 mmol/L (21-32) 02/04/21 00:00 BUN 57 mg/dL (7-18) H 02/04/21 00:00 Creatinine 3.49 mg/dL (0.55-1.3) H 02/04/21 00:00 Estimated GFR 16 mL/min (=/>90) L 02/04/21 00:00 Glucose 107 mg/dL (74-106) H 02/04/21 00:00 Lactic Acid 1.7 mmol/L (0.4-2.0) 02/04/21 00:00 Calcium 9.2 mg/dL (8.5-10.1) 02/04/21 00:00 Magnesium 2.3 mg/dL (1.8-2.4) D 02/04/21 00:00 Total Bilirubin 0.5 mg/dL (0.2-1.0) 02/04/21 00:00 Direct Bilirubin 0.2 mg/dL (0-0.2) 02/04/21 00:00 AST 17 U/L (15-37) 02/04/21 00:00 ALT 16 U/L (12-78) 02/04/21 00:00 Alkaline Phosphatase 135 U/L (45-117) H 02/04/21 00:00 Rapid Troponin I 0.17 ng/mL (0.0-0.045) H 02/04/21 00:00 NT-Pro-B Natriuret Pep 512 pg/mL (<125) H 02/04/21 00:00 Serum Total Protein 7.2 g/dL (6.4-8.2) 02/04/21 00:00 Albumin 2.4 g/dL (3.4-5.0) L 02/04/21 00:00 Globulin 4.8 g/dL (2.3-3.5) H 02/04/21 00:00 Albumin/Globulin Ratio 0.5 (1.1-1.8) L 02/04/21 00:00 Procalcitonin 0.52 ng/mL (<0.050) H 02/04/21 00:00 Urine pH 5.5 (5.0-7.0) 02/04/21 00:24 Ur Specific [place] >=1.030 (1.005-1.030) 02/04/21 00:24 Glucose (UA)(Auto) Negative (Negative) 02/04/21 00:24 Urine Ketones Trace (Negative) H 02/04/21 00:24 Urine Blood 3+ (Negative) H 02/04/21 00:24 Urine Nitrite Negative (Negative) 02/04/21 00:24 Ur Leukocyte Esterase Negative (Negative) 02/04/21 00:24 Urine RBC >50 /HPF (NONE SEEN) H 02/04/21 00:00 Urine WBC 20-50 /HPF (<5) H 02/04/21 00:00 Ur Squamous Epith Cells 10-20 /HPF (NONE SEEN) H 02/04/21 00:00 Ur Urothelial Cells 5-10 /HPF (NONE SEEN) 02/04/21 00:00 Urine Bacteria 20-50 /HPF (<20) H 02/04/21 00:00 Urine Yeast Few (NONE SEEN) 02/04/21 00:00 Urine Yeast (Budding) Present (NONE SEEN) H 02/04/21 00:00 Urine Culture Reflexed Not needed 02/04/21 00:00 Urine Total Protein 2+ (Negative) H 02/04/21 00:24 Influenza Type A RNA Negative (NEGATIVE) 02/04/21 00:00 Influenza Type B RNA Negative (NEGATIVE) 02/04/21 00:00 SARS-CoV-2 RNA (RT-PCR) Negative (NEGATIVE) 02/04/21 00:00 Assessment And Plan - Plan Physical Exam: General: Obese, in pain HEENT: Atraumatic Neck: Supple, 2+ carotid pulse no bruit Respiratory: Clear to auscultation bilaterally, Normal air movement Cardiovascular: Normal pulses, Regular rate/rhythm Capillary refill: <2 Seconds Gastrointestinal: Normal bowel sounds, Soft and benign Musculoskeletal: No clubbing, No contractures Integumentary: Other (Right upper inner thigh a wound: Base of wound majority granulation tissue, minimal slough tissue present. No clinical signs of infection, no lymphatic streaking noted. No foul odor or drainage noted to wound.) Urinary: Mike catheter Conclusions/Impression: Antibiotics: Doxycycline Start: 02/04 Assessment/plan Right upper inner thigh wound Wound care: Apply Medihoney to area and cover with gauze. Change Q Wednesday or p.r.n. if soiled or removed. Continue doxycycline for a total of 7 days.Wound culture growing Klebsiella and MRSA. Leukocytosis Continue to monitor WBC trend. Patient afebrile, continue doxycycline at this time. TEE on CKD stage 3 Nephrology on case, avoid nephrotoxic agents. Renally dose all antibiotic with renal excretion Diabetes Continue insulin Morbid obesity/CHF Medical management per primary team Plan of care discussed with Dr. Duke Thank you for consultation.
[2021-02-07 12:48] VITALS: BP 137/63; TEMP 97
--- NOTE | 2021-02-07 13:38 | P.DS ---
Admission Date: 02/04/21 Discharge Date: 02/07/21 Primary Care Provider: Dr. Uribe Disposition: TRANSFER TO SNF Discharge Condition: FAIR Reason for Admission: Acute renal failure, cellulitis Consultations: ID - Dr. Duke Nephrology - Dr. Uribe Procedures: CT Chest/Abd/Pelvis (02/04): FINDINGS: Multiple transaxial tomograms of the chest, abdomen and pelvis were obtained from the lung apices through the ischial tuberosities, utilizing 5 mm slice thickness at 5 mm interval reconstruction without the administration of IV contrast. Multiplanar reformats in the sagittal and coronal plane were generated and reviewed. This exam was performed according to our departmental dose-optimization protocol, which includes automated exposure control, adjustment of the mA and/or kV according to patient size and/or use of iterative reconstruction technique. Chest: The lungs parenchyma demonstrate decreased lung volume with compressive atelectatic changes right lung base and mild elevation of the right hemidiaphragm. No significant masses and/or consolidations are identified. The left lung demonstrate to be within normal limits. The trachea mainstem bronchus demonstrate to be normal. There is no significant pleural and/or pericardial effusions. The heart demonstrate to be normal in size. There is a pacemaker via left subclavian. There is atherosclerotic disease of the thoracic aorta with no significant aneurysmatic dilatation. There is no significant mediastinal and/or hilar lymphadenopathy. The axillary regions demonstrate to be clear. The bone windows demonstrate no significant skeletal lesions. Abdomen and pelvis: Grossly the unopacified liver demonstrate again the presence of tiny hypodensity within the medial segment left hepatic lobe corresponding small cyst. Surgical clips within the gallbladder fossa correspond to previous cholecystectomy. The spleen, pancreas and adrenal glands demonstrate to be grossly within normal limits. The kidneys demonstrate vascular calcifications. No definitive nephrolithiasis and/or hydronephrosis. The unopacified stomach, small bowel and large bowel demonstrate to be within normal limits. Fecal residue within the large bowel suggests the possibility of the constipation/mild fecal stasis. The urinary bladder demonstrate presence of a Mike catheter. There is no evidence for retroperitoneal lymphadenopathy. There is no evidence for ascites. There is atherosclerotic disease of the aorta extending into the iliac arteries. Again there is a IVC filter within the right common iliac vein/distal inferior vena cava The bone windows demonstrate posterior transpedicular screw fixation device L2- S1. IMPRESSION: No acute intrathoracic, abdominal, or pelvic process. Fecal residue within the large bowel suggesting constipation. Atherosclerotic disease of the thoracic and abdominal aorta with. Status post cholecystectomy. Renal U/S (02/04): FINDINGS: The right kidney measures 10 cm with a mildly increased echotexture. The left kidney measures 9 cm with a mildly increased l echotexture. 1.3 centimeters cyst Hydronephrosis is not seen. Images of the bladder were not obtained as the patient was pain wanted the exam to end IMPRESSION: Mildly increased renal echotexture consistent with parenchymal disease 1.3 centimeter left renal cyst Problem List ARFacute worsening of CKD 3 NSTEMI with underlying chronic diastolic congestive heart failure Wound of R upper thigh / mons pubis Diabetes type 2 with hyperglycemia Polyneuropathy/chronic/intractable pain HTN Brief History of Present Illness: 65-year-old -[place] female with history of diabetes mellitus type 2, hypertension, chronic diastolic congestive heart failure, hyperlipidemia, CKD presents the emergency department for severe pain to right upper and lower extremity, worsening wounds, weakness and inability to care for herself at home. Patient was admitted here last month for cellulitis, neuropathic pain, NSTEMI and urinary tract infection. Patient was discharged and supposed to have home health and physical therapy but this was not set up. Patient has been home alone without additional assistance for the last approximately 1 month. Patient reports worsening of wound to right anterior proximal thigh and pannus area, also reports worsening of her pain that she is being treated for with gabapentin. ED progress is to admit for further management of acute renal failure, cellulitis. Hospital Course: TEE - secondary to dehydration/pre-renal. Improved with IVF. Lasix was held. Nephrology consulted. R upper thigh wound - healing well, improved compared to last admission, no surrounding erythema/purulent drainage. ID consulted, do not suspect infection, no systemic infection. Was empirically treated on admission with antibiotics. ID recommend 7 day total course of doxy. Superficial wound culture was obtained and grew MRSA and klebsiella. Wound care with medihoney and dressing changes. Pain - chronic pain, patient was continued on her home regimen with gradual improvement, however still reports significant pain at times. continue norco/gabapentin/cymbalta. Recommend f/u with her pain doctor, may need interventional pain / radiology for possible pain pump / injection. Patient was discharged to SNF to continue working with PT, pain control, wound care. She did not do well trying this at home after last discharge. Vital Signs/Physical Exam: Physical exam GEN: Alert, oriented, NAD HEENT: Normal conjunctiva, sclera anicteric CV: Regular rate and rhythm, trace b/l pedal edema Pulm: Nonlabored respiration on room air ABD: Soft, nontender, nondistended MSK: b/l lower leg tenderness Integumentary: R upper thigh superficial wound, pink/red granulation tissue, no purulent drainage, medihoney on wound Neuro: Normal speech, normal affect, limited lower extremity ROM on my exam secondary to pain Temp Pulse Resp BP Pulse Ox 97.0 F 76 18 137/63 98 02/07/21 12:00 02/07/21 12:00 02/07/21 12:00 02/07/21 12:00 02/07/21 12:00 Laboratory Data at Discharge: WBC 9.30 K/uL (4.3-10.9) D 02/07/21 05:45 Hgb 9.4 g/dL (12.0-15.0) L 02/07/21 05:45 Hct 28.6 % (36.0-45.0) L 02/07/21 05:45 Plt Count 288 K/uL (152-406) 02/07/21 05:45 PT 17.0 SECONDS (9.5-12.5) H 02/04/21 00:00 INR 1.47 02/04/21 00:00 Sodium 146 mmol/L (136-145) H 02/07/21 05:45 Potassium 3.8 mmol/L (3.5-5.1) 02/07/21 05:45 BUN 33 mg/dL (7-18) H 02/07/21 05:45 Creatinine 1.14 mg/dL (0.55-1.3) 02/07/21 05:45 Glucose 99 mg/dL (74-106) 02/07/21 05:45 Uric Acid 10.5 mg/dL (2.6-6.0) H 02/06/21 06:10 Phosphorus 2.5 mg/dL (2.5-4.9) 02/07/21 05:45 Magnesium 1.7 mg/dL (1.8-2.4) L 02/07/21 05:45 Total Bilirubin 0.3 mg/dL (0.2-1.0) 02/07/21 05:45 AST 14 U/L (15-37) L 02/07/21 05:45 ALT 13 U/L (12-78) 02/07/21 05:45 Alkaline Phosphatase 105 U/L (45-117) 02/07/21 05:45 Troponin I 0.16 ng/mL (0.0-0.045) H 02/04/21 11:32 Home Medications: ALPRAZolam [Alprazolam] 0.5 mg PO TID 12/03/18 Clonidine HCl [Catapres*] 0.2 mg PO DAILY 12/03/18 Simvastatin 40 mg PO BEDTIME 12/03/18 Gabapentin [Neurontin] 600 mg PO TID 30 Days #90 tablet 01/09/21 Medihoney [Medihoney Woundcare Gel*] 1 appl TOP DAILY 30 Days #1 tube 01/09/21 Carvedilol [Coreg] 12.5 mg PO BID 02/04/21 Hydrocodone Bit/Acetaminophen [Hydrocodon-Acetaminophn 10-325] 1 tab PO QID 02/04/21 Doxycycline Hyclate 100 mg PO BID 5 Days #10 tablet 02/07/21 Duloxetine HCl [Cymbalta] 30 mg PO BEDTIME 30 Days #30 cap 02/07/21 New Medications: Duloxetine HCl [Cymbalta] 30 mg PO BEDTIME 30 Days #30 cap Doxycycline Hyclate 100 mg PO BID 5 Days #10 tablet Physician Discharge Instructions: You were found to be very dehydrated leading to worsening of your renal function. This improved with rehydration with IV fluids and was back to your baseline kidney function. ER was held during your hospitalization. Recommend continuing to hold this until instructed by your PCP. Your glucose levels also remained within normal limits without the use of scheduled insulin. Your pain was managed .with your home prescriptions/regimen. You had some gradual improvement in your pain as well. You were treated with antibiotics as a precaution due to concern of a possible infection. Infectious disease was consulted felt that if there was an infection it was very superficial and not systemic. Recommended a 7-day total course of antibiotics, with doxycycline. Continue wound care with Medihoney and dressing changes. Follow-up with PCP Follow-up with your wound care physician Follow-up with your pain doctor Diet: ADA Activity: Fall precautions Time spent managing pt's care (in minutes): 60
--- NOTE | 2021-02-07 18:07 | P.PN ---
Date of Service: 02/07/21 Vital Signs Temp Pulse Resp BP Pulse Ox 97.0 F 76 18 137/63 98 02/07/21 12:00 02/07/21 13:49 02/07/21 13:49 02/07/21 13:49 02/07/21 13:49 Microbiology Results 02/04/21 00:00 Clean Catch Urine Waldo Count - Final BETWEEN 10,000 & 100,000 CFU/ML 02/04/21 00:00 Clean Catch Urine - Final MIXED KATHRYN. 02/04/21 00:00 Blood - Blood Aerobic Blood Culture - Preliminary No growth in 24 hours. 02/04/21 00:00 Blood - Blood Anaerobic Blood Culture - Preliminary No growth in 24 hours. 02/04/21 00:15 Blood - Blood Aerobic Blood Culture - Preliminary No growth in 24 hours. 02/04/21 00:15 Blood - Blood Anaerobic Blood Culture - Preliminary No growth in 24 hours. Assessment/ Plan: Nephrology Progress Note Persistent LLE pain No chest pain or dyspnea No acute events overnight Vitals, medications blood work and imaging reviewed in the chart General: In no apparent distress, Cooperative HEENT: Atraumatic Neck: Supple Respiratory: CTA Cardiovascular: No edema, Regular rate/rhythm Gastrointestinal: Soft and benign, Non-distended Musculoskeletal: No clubbing, No contractures, LLE Tenderness Integumentary: No rashes, No cyanosis Neurological: Normal speech Laboratory Data (last 24 hrs) 02/04/21 00:00: PT 17.0 H, INR 1.47 02/04/21 00:00: WBC 14.50 H, Hgb 11.2 L, Hct 34.2 L, Plt Count 343 02/04/21 00:00: Sodium 144, Potassium 4.1, BUN 57 H, Creatinine 3.49 H, Glucose 107 H, Magnesium 2.3 D, Total Bilirubin 0.5, AST 17, ALT 16, Alkaline Phosphatase 135 H Imagings Data: EXAM DESCRIPTION: US - Renal Ultrasound-Complete - 02/04/2021 6:06 am CLINICAL HISTORY: Acute renal failure COMPARISON: 2018 FINDINGS: The right kidney measures 10 cm with a mildly increased echotexture. The left kidney measures 9 cm with a mildly increased l echotexture. 1.3 centimeters cyst Hydronephrosis is not seen. Images of the bladder were not obtained as the patient was pain wanted the exam to end IMPRESSION: Mildly increased renal echotexture consistent with parenchymal disease 1.3 centimeter left renal cyst EXAM DESCRIPTION: Mandeept Single View02/04/2021 1:13 am CLINICAL HISTORY: Cough COMPARISON: December 2020 FINDINGS: Elevation right hemidiaphragm with areas of subsegmental atelectasis within the right lung. Left lung appears clear of acute infiltrate. Heart is mildly enlarged. Pacemaker leads in place EXAM DESCRIPTION: CT - Chest Abd Pelvis Wo Con - 02/04/2021 6:30 am CLINICAL HISTORY: 65 years, Female, PAIN; ABD DISTENTION COMPARISON: 12/02/2019 FINDINGS: Multiple transaxial tomograms of the chest, abdomen and pelvis were obtained from the lung apices through the ischial tuberosities, utilizing 5 mm slice thickness at 5 mm interval reconstruction without the administration of IV contrast. Multiplanar reformats in the sagittal and coronal plane were generated and reviewed. This exam was performed according to our departmental dose-optimization protocol, which includes automated exposure control, adjustment of the mA and/or kV according to patient size and/or use of iterative reconstruction technique. Chest: The lungs parenchyma demonstrate decreased lung volume with compressive atelectatic changes right lung base and mild elevation of the right hemidiaphragm. No significant masses and/or consolidations are identified. The left lung demonstrate to be within normal limits. The trachea mainstem bronchus demonstrate to be normal. There is no significant pleural and/or pericardial effusions. The heart demonstrate to be normal in size. There is a pacemaker via left subclavian. There is atherosclerotic disease of the thoracic aorta with no significant aneurysmatic dilatation. There is no significant mediastinal and/or hilar lymphadenopathy. The axillary regions demonstrate to be clear. The bone windows demonstrate no significant skeletal lesions. Abdomen and pelvis: Grossly the unopacified liver demonstrate again the presence of tiny hypodensity within the medial segment left hepatic lobe corresponding small cyst. Surgical clips within the gallbladder fossa correspond to previous cholecystectomy. The spleen, pancreas and adrenal glands demonstrate to be grossly within normal limits. The kidneys demonstrate vascular calcifications. No definitive nephrolithiasis and/or hydronephrosis. The unopacified stomach, small bowel and large bowel demonstrate to be within normal limits. Fecal residue within the large bowel suggests the possibility of the constipation/mild fecal stasis. The urinary bladder demonstrate presence of a Mike catheter. There is no evidence for retroperitoneal lymphadenopathy. There is no evidence for ascites. There is atherosclerotic disease of the aorta extending into the iliac arteries. Again there is a IVC filter within the right common iliac vein/distal inferior vena cava The bone windows demonstrate posterior transpedicular screw fixation device L2- S1. IMPRESSION: No acute intrathoracic, abdominal, or pelvic process. Fecal residue within the large bowel suggesting constipation. Atherosclerotic disease of the thoracic and abdominal aorta with. Status post cholecystectomy. Conclusions/Impression: TEE likely due to hypovolemia CKD III -No NSAIDs HypoPO4 -Encourage nutrition Hypomagnesemia -Continue MagOx qhs HTN with CKD/ CHF Hypotension resolved -Continue Clonidine Diastolic CHF, chronic -Low sodium diet -Hold furosemide DM II with CKD -RISS Moderate malnutrition -Encourage nutrition Anemia in chronic illness -Monitor H&H Gout Slow transit constipation -Continue Colace -Continue MagOx qhs -Lactulose PRN Acute cystitis with hematuria -Continue abx -ID following LLE Pain -Continue Gabapentin Case reviewed with Dr. Canas
== END 2021-02-07 15:12 | DRG 281 ==
LOC: ER 23:05 → ERHOLD 02-04 02:51 → 2ND 02-04 03:04
PROVIDERS: ADMIT Hospitalist; ATTEND Hospitalist
DX: I13.0 Hypertensive heart and chronic kidney disease with heart failure and stage 1 through stage 4 chronic kidney disease, or unspecified chronic kidney disease (principal); I21.4 Non-ST elevation (NSTEMI) myocardial infarction; N17.9 Acute kidney failure, unspecified; I50.32 Chronic diastolic (congestive) heart failure; N30.01 Acute cystitis with hematuria; L03.115 Cellulitis of right lower limb; L03.315 Cellulitis of perineum; E44.0 Moderate protein-calorie malnutrition; E86.0 Dehydration; E11.22 Type 2 diabetes mellitus with diabetic chronic kidney disease; E11.65 Type 2 diabetes mellitus with hyperglycemia; N18.30 Chronic kidney disease, stage 3 unspecified; K59.01 Slow transit constipation; M10.9 Gout, unspecified; Z68.36 Body mass index [BMI] 36.0-36.9, adult; D63.8 Anemia in other chronic diseases classified elsewhere; B96.1 Klebsiella pneumoniae [K. pneumoniae] as the cause of diseases classified elsewhere; B95.62 Methicillin resistant Staphylococcus aureus infection as the cause of diseases classified elsewhere; E83.42 Hypomagnesemia; G62.9 Polyneuropathy, unspecified; G89.29 Other chronic pain; E66.01 Morbid (severe) obesity due to excess calories; Z20.822 Contact with and (suspected) exposure to COVID-19
CPT/HCPCS: 0240U; 36415; 71045; 71250; 74176; 76770; 80048; 80053; 80076; 81003; 81015; 82947; 83605; 83735; 83880; 84100; 84145; 84484; 84550; 85025; 85610; 86140; 87040; 87070; 87077; 87086; 87088; 87186; 87205; 93005; 97110; 97161; 97530; J0360; J0692; J1170; J1644; J2405; J3010; J3370; J7030; J7050; U0003

== ENCOUNTER 2021-07-13 23:35 | Inpatient (IN) | payer OTHER ==
--- OUTSIDE RECORDS SUMMARY | 2021-07-13 23:41 | XMS REPORT | Continuity of Care Document ---
:1955 Author Organization [facility] t Address [address] [place] [address] [address] [place] [address] Care Team Providers Name Role Phone Rebecca JOHNSON Primary Care Physician Unavailable Justyn GHOTRA, B Attending Clinician Unavailable SANJEEV Attending Clinician Unavailable Singer PALACIO Attending Clinician Sanjeev PALACIO Attending Clinician SILVIO MILLER Attending Clinician Unavailable Maude Villegas Attending Clinician Maude MONTOYA Attending Clinician Unavailable MAHOGANY Attending Clinician Unavailable MD LUPE LEVINE Attending Clinician Unavailable DAOGBERTO Attending Clinician Unavailable MARLENE Attending Clinician Unavailable LAVON Attending Clinician Unavailable DADA Attending Clinician Unavailable SANJEEV Admitting Clinician Unavailable Sanjeev PALACIO Admitting Clinician ESTELA Admitting Clinician Unavailable MD ROVERTO Admitting Clinician Unavailable [place] Admitting Clinician Unavailable DADA Admitting Clinician Unavailable Payers Payer Name Policy Type Policy Number Effective Date Expiration Date S ource Problems Condition Condition Condition Status Onset Resolution Last Treating Co mments Source Name Details Category Date Date Treatment Clinician Date DEVRIES DEVRIES Disease Active Univers (dyspnea (dyspnea 2-28 ity of on on 00:00: [place] exertion) exertion) 00 [facility] Acute on Acute on Disease Active Unive rs chronic chronic 2-28 [place] of diastolic diastolic 00:[place] CH[place] CHF 00 Medical (congestiv (congestiv Br anch e heart e heart failure), failure), NYHA class NYHA class 3 3 S/P S/P Disease Active Univers placement placement 2-28 ity of of cardiac of cardiac 00:[place] pac[place] pacemaker 00 [facility] History of History of Disease Active U nivers bradycardi bradycardi 2-28 it y of a a 00:00: [place] [facility] Type 2 Type 2 Disease Active Univers diabetes diabetes 2-28 ity of mellitus mellitus 00:00: [place] with other with other 00 Me dical specified specified Bran ch complicati complicati on on Dyslipidem Dyslipidem Disease Active U nivers ia ia 2- ity of 00:00: Medical Branch Essential Essential Disease Active Uni vers hypertensi hypertensi 2-28 it y of on on 00:00: [place] [facility] Flash Flash Disease Active Univers pulmonary pulmonary 2- ity of edema edema 00:00: [place] [facility] UTI UTI Disease Active 2020-04 Univers (urinary (urinary 04-19 ity of tract tract 00:00: [place] infection) infection) 00 N[facility] d[facility] Branch Allergies, Adverse Reactions, Alerts Allergy Allergy Status Severity Reaction(s) Onset Inactive Treating Comm ents Source Name Type Date Date Clinician TRAZODON DRUG Active Unknown-Cmnt 2020-04 Un chrissie E INGREDI 04-19 ity of 00:00: [place] 00 Medical Branch Trazodon Propensi Active Unknown - 2020-04 Uni vers e ty to See comments 04-19 ity of adverse 00:00: [place] reaction 00 Medical s Branch Codeine Propensi Active Itching Univer s ty to 12-29 ity of adverse 00:00: [place] reaction 00 Medical s Branch Morphine Propensi Active Itching Unive rs ty to 12-29 ity of adverse 00:00: [place] reaction 00 Medical s Branch Penicill Propensi Active Hives Univer s ins ty to 12-29 ity of adverse 00:00: [place] reaction 00 Medical s Branch CODEINE DRUG Active Med ITCHING Univers INGREDI 12-29 ity of 00:00: [place] 00 Medical Branch MORPHINE DRUG Active Med ITCHING Univers INGREDI 9-19 ity of 00:00: [place] 00 Medical Branch PENICILL Drug Active Med Hives Univers INS Class 9-19 ity of 00:00: [place] 00 Medical Branch Social History Social Habit Start Date Stop Date Quantity Comments Source Exposure to Not sure [facility] SARS-CoV-2 (event) Medica l Branch Education 2021-06-06 2021-06-06 21 [facility] 00:00:00 00:00:00 Medical Branch Cigarettes smoked 2021-05-19 2021-05-19 [facility] current (pack per 00:00:00 00:00:00 [facility] day) - Reported Cigarette 2021-05-19 2021-05-19 [facility] pack-years 00:00:00 00:00:00 [facility] Tobacco use and 2021-05-19 2021-05-19 Never used [facility] exposure 00:00:00 00:00:00 [facility] History of tobacco 1973-04-12 2021-01-10 Smoker [facility] use 00:00:00 00:00:00 [facility] Sex Ass[birth year] [facility] 00:00:00 00:00:00 [facility] Smoking Status Start Date Stop Date Source Former smoker 2021-05-19 00:00:00 2021-05-19 00:00:00 [facility] Branch Medications Ordered Filled Start Stop Current Ordering Indication Dosage Frequency Signature Comments Components Source Medication Medication Date Date Medication? Clinician (SIG) Name Name amLODIPine Yes 5mg Take 1 Unive rs 5 mg tablet 3-04 tablet by ity of 00:00: mouth [place] 00 daily. Medical Branch cyanocobala Yes 1000ug inject 1 Univers min 1,000 3-04 mL under ity of mcg/mL 00:00: the skin [place] injection 00 daily. Medical Branch spironolact Yes 25mg Take 1 Univ ers one 25 mg 3-04 tablet by ity o f tablet 00:00: mouth [place] 00 daily. Medical Branch amLODIPine Yes 5mg Take 1 Unive rs 5 mg tablet 3-04 tablet by ity of 00:00: mouth [place] 00 daily. Medical Branch cyanocobala Yes 1000ug inject 1 Univers min 1,000 -04 mL under ity of mcg/mL 00:00: the skin [place] injection 00 daily. Medical Branch spironolact Yes 25mg Take 1 Univ ers one 25 mg -04 tablet by ity o f tablet 00:00: mouth [place] 00 daily. Medical Branch DULoxetine Yes 30mg Take 30 mg U nivers 30 mg 06-12 by mouth ity of capsule 18:13: every [place] 45 evening. Medical Branch DULoxetine Yes 30mg Take 30 mg U nivers 30 mg 03 by mouth ity of capsule 18:13: every [place] 45 evening. Medical Branch ferrous Yes 325mg 325 mg, Univer s sulfate 06-12 Oral, ity of tablet 325 15:00: DAILY, [place] mg 00 First dose Medical (after Branch last modificati on) on [facility] 06/12/21 at 0900, Until Discontinu ed, Routine polyethylen Yes 17g 17 g, Unive rs e glycol 06-12 Oral, ity of 3350 powder 15:00: DAILY, [place] 17 g 00 First dose Medical on [facility] 06/12/21 at 0900, Until Discontinu ed, Routine spironolact Yes 25mg 25 mg, Univ ers one 06-12 Oral, ity of (ALDACTONE) 15:00: DAILY, [place] tablet 25 00 First dose Medi xavier mg on [facility] 06/12/21 at 0900, Until Discontinu ed, Routine bumetanide Yes 2mg 2 mg, Univer s (BUMEX) 06-12 Oral, ity of tablet 2 mg 15:00: QAM+PM, [place] 00 First dose Medical on [facility] 06/12/21 at 0900, Until Discontinu ed, Routine amLODIPine Yes 5mg 5 mg, Univer s (NORVASC) 3 Oral, ity of tablet 5 mg 15:00: DAILY, [place] 00 First dose Medical (after Branch last modificati on) on [facility] 06/12/21 at 0900, Until Discontinu ed, Routine hydrALAZINE 202- No 25mg Take 25 mg Univers 25 mg 3-03 03-03 by mouth ity of tablet 14:18: 00:00 every 12 [place] 43 :00 (twelve) Medical hours. Branch multivitami 2021- No 1{tbl} Take 1 U nivers n with 06-12 tablet by ity of minerals 14:18: 00:00 mouth [place] (MULTIPLE 43 :00 daily. Medical VITAMIN-MIN Branch ERALS) tablet gabapentin 2021- No 600mg Take 600 U nivers 300 mg 06-12 mg by ity of capsule 14:18: 00:00 mouth 3 [place] 43 :00 (three) Medical times Branch daily. nystatin 2021- No [id number] Apply Univ ers 100,000 06-12 /[oz_av 100,000 ity o f unit/gram 14:18: 00:00 ] Units/oz [place] powder 43 :00 to area(s) Medical 2 (two) Branch times daily. Apply under breast and abdomen folds topically for yeast related to candidiasi s HYDROcodone 2021- No 1{tbl} Take 1 U nivers -acetaminop 06-12 tablet by it y of hen (NORCO) 14:18: 00:00 mouth 4 [place] 7.5-325 mg 43 :00 (four) Medical per tablet times Branch daily. HYDROmorpho 2021- No 2mg Take 2 mg Univers ne 06-12 by mouth ity of (DILAUDID) 14:18: 00:00 every 6 [place] as 2 mg tablet 43 :00 (six) Medical hours as Branch needed. ALPRAZolam 2021- No .5mg Take 0.5 Un chrissie 0.5 mg 06-12-03 mg by ity of tablet 14:18: 00:00 mouth 3 [place] 43 :00 (three) Medical times Branch daily. simvastatin 2021- No 40mg Take 40 mg Univers 20 mg 06-12-03 by mouth ity of tablet 14:18: 00:00 at [place] 43 :00 bedtime. Medical Branch carvediloL 2021- No 12.5mg Take 12.5 Univers 12.5 mg 06-12-03 mg by ity of tablet 14:18: 00:00 mouth 2 [place] 43 :00 (two) Medical times Branch daily with meals. acetaminoph 2021- No 650mg Take 650 Univers en 06-12 03-03 mg by ity of (TYLENOL) 14:18: 00:00 mouth [place] 325 mg 43 :00 every 4 Medical tablet (four) Branch hours as needed for Temp > 38.5 C. polyethylen 2021- No 17g Take 17 g Univers e glycol 06-1203 by mouth ity of 3350 14:18: 00:00 as needed [place] (MIRALAX) 43 :00 for Medical 17 Constipati Branch gram/dose on. Mix in powder 4-6 oz of water cloNIDine 2021- No .2mg Take 0.2 Uni vers 0.2 mg 06-12 03-03 mg by ity of tablet 14:18: 00:00 mouth [place] 43 :00 every 8 Medical (eight) Branch hours as needed (HTN crisis). BP SBP>170 vitamin C 2021- No 100mg Take 100 Un chrissie (VITAMIN C) 06-12 03-03 mg by ity of 100 mg 14:18: 00:00 mouth [place] tablet 43 :00 daily. Medical Branch ferrous 2021- No 325mg Take 325 Univ ers sulfate 325 06-12 03-03 mg by ity of mg (65 mg 14:18: 00:00 mouth 3 [place] iron) 43 :00 (three) Medical tablet times Branch daily with meals. carvediloL Yes 25mg 25 mg, Unive rs (COREG) 3-03 Oral, BID ity of tablet 25 14:00: MEALS, [place] mg 00 First dose Medical on [facility] 06/12/21 at 0800, Until Discontinu ed, Routine iron 2021- No 300mg 300 mg, IV Unive rs sucrose 06-12-03 Infusion, ity of (VENOFER) 02:30: 07:51 ONCE, [place] 300 mg in 00 :00 Administer Medi xavier NaCl 0.9% over 4 Branch (NS) 250 mL Hours, On infusion 06/11/21 at 2030, For 1 dose cyanocobala 2021- Yes 1000ug 1,000 mcg, Univers min 06-12-09 Subcutaneo ity of (VITAMIN 02:15: 14:59 [place], DAILY, [place] B12) 00 :00 7 doses, Medical injection First dose Bran ch 1,000 mcg on Wed06/11/21 at 2015, Last dose on Wed06/17/21 at 0900, Routine acetaminoph 2021-0 Yes 650mg Take 2 Uni vers en 3-03 tablets by ity of (TYLENOL) 00:00: mouth [place] 325 mg 00 every 4 Medical tablet (four) Branch hours as needed for Temp > 38.5 C. ALPRAZolam 2021-0 Yes .5mg Take 1 Unive rs 0.5 mg 3-03 tablet by ity of tablet 00:00: mouth 3 [place] 00 (three) Medical times Branch daily. bumetanide 2021-0 Yes 2mg Take 1 Unive rs 2 mg tablet 3-03 tablet by ity of 00:00: mouth [place] 00 every Medical morning Branch and evening. carvediloL 2021-0 Yes 25mg Take 1 Unive rs 25 mg 3-03 tablet by ity of tablet 00:00: mouth 2 [place] 00 (two) Medical times Branch daily with meals. cloNIDine 2021-0 Yes .2mg Take 1 Univer s 0.2 mg 3-03 tablet by ity of tablet 00:00: mouth [place] 00 every 8 Medical (eight) Branch hours as needed (HTN crisis). docusate 2021-0 Yes 100mg Take 1 Univer s 100 mg 3-03 capsule by ity of capsule 00:00: mouth 2 [place] 00 (two) Medical times Branch daily. furosemide 2021-0 Yes [id number] 20mg Take 1 U nivers 20 mg 3-03 tablet by ity of tablet 00:00: mouth [place] 00 every Medical morning. Branch gabapentin 2021-0 Yes 600mg Take 2 Univ ers 300 mg 3-03 capsules ity of capsule 00:00: by mouth 3 [place] 00 (three) Medical times Branch daily. HYDROcodone 2021-0 Yes 1{tbl} Take 1 Un chrissie -acetaminop 3-03 tablet by ity of hen (NORCO) 00:00: mouth 4 [place] 7.5-325 mg 00 (four) Medical per tablet times Branch daily. multivitami 2021-0 Yes 1{tbl} Take 1 Un chrissie n with 3-03 tablet by ity of minerals 00:00: mouth [place] (MULTIPLE 00 daily. Medical VITAMIN-MIN Branch ERALS) tablet nystatin Yes [id number] Apply Unive rs 100,000 3-03 /[oz_av 100,000 ity of unit/gram 00:00: ] Units/oz [place] powder 00 to area(s) Medical 2 (two) Branch times daily. Apply under breast and abdomen folds topically for yeast related to candidiasi s polyethylen Yes 17g Take 17 g U nivers e glycol 3-03 by mouth ity of 3350 00:00: as needed [place] (MIRALAX) 00 for Medical 17 Constipati Branch gram/dose on. Mix in powder 4-6 oz of water simvastatin Yes 40mg Take 1 Univ ers 40 mg 3-03 tablet by ity of tablet 00:00: mouth at [place] 00 bedtime. Medical Branch vitamin C Yes 100mg Take 1 Unive rs (VITAMIN C) 3-03 tablet by ity of 100 mg 00:00: mouth [place] tablet 00 daily. Medical Branch ferrous Yes 325mg Take 1 Univers sulfate 325 3-03 tablet by ity of mg (65 mg 00:00: mouth [place] iron) 00 daily. Medical tablet Branch acetaminoph Yes 650mg Take 2 Uni vers en 3-03 tablets by ity of (TYLENOL) 00:00: mouth [place] 325 mg 00 every 4 Medical tablet (four) Branch hours as needed for Temp > 38.5 C. ALPRAZolam 0 Yes .5mg Take 1 Unive rs 0.5 mg 3-03 tablet by ity of tablet 00:00: mouth 3 [place] 00 (three) Medical times Branch daily. bumetanide 0 Yes 2mg Take 1 Unive rs 2 mg tablet 3-03 tablet by ity of 00:00: mouth [place] 00 every Medical morning Branch and evening. carvediloL 0 Yes 25mg Take 1 Unive rs 25 mg 3-03 tablet by ity of tablet 00:00: mouth 2 [place] 00 (two) Medical times Branch daily with meals. cloNIDine 0 Yes .2mg Take 1 Univer s 0.2 mg 3-03 tablet by ity of tablet 00:00: mouth [place] 00 every 8 Medical (eight) Branch hours as needed (HTN crisis). docusate Yes 100mg Take 1 Univer s 100 mg 3-03 capsule by ity of capsule 00:00: mouth 2 [place] 00 (two) Medical times Branch daily. furosemide Yes [id number] 20mg Take 1 U nivers 20 mg 3-03 tablet by ity of tablet 00:00: mouth [place] 00 every Medical morning. Branch gabapentin 0 Yes 600mg Take 2 Univ ers 300 mg 3-03 capsules ity of capsule 00:00: by mouth 3 [place] 00 (three) Medical times Branch daily. HYDROcodone Yes 1{tbl} Take 1 Un chrissie -acetaminop 3-03 tablet by ity of hen (NORCO) 00:00: mouth 4 [place] 7.5-325 mg 00 (four) Medical per tablet times Branch daily. multivitami Yes 1{tbl} Take 1 Un chrissie n with 3-03 tablet by ity of minerals 00:00: mouth [place] (MULTIPLE 00 daily. Medical VITAMIN-MIN Branch ERALS) tablet nystatin Yes [id number] Apply Unive rs 100,000 3-03 /[oz_av 100,000 ity of unit/gram 00:00: ] Units/oz [place] powder 00 to area(s) Medical 2 (two) Branch times daily. Apply under breast and abdomen folds topically for yeast related to candidiasi s polyethylen Yes 17g Take 17 g U nivers e glycol 3-03 by mouth ity of 3350 00:00: as needed [place] (MIRALAX) 00 for Medical 17 Constipati Branch gram/dose on. Mix in powder 4-6 oz of water simvastatin Yes 40mg Take 1 Univ ers 40 mg 3-03 tablet by ity of tablet 00:00: mouth at [place] 00 bedtime. Medical Branch vitamin C 0 Yes 100mg Take 1 Unive rs (VITAMIN C) 3-03 tablet by ity of 100 mg 00:00: mouth [place] tablet 00 daily. Medical Branch ferrous 0 Yes 325mg Take 1 Univers sulfate 325 3-03 tablet by ity of mg (65 mg 00:00: mouth [place] iron) 00 daily. Medical tablet Branch carvediloL 2021- No 12.5mg 12.5 mg, Univers (COREG) 06-11 Oral, BID ity of tablet 12.5 23:00: 22:38 MEALS, 1 [place] mg 00 :00 dose, Medical First dose Branch (after last modificati on) on Wed06/11/21 at 1700, Routine docusate Yes 100mg 100 mg, Unive rs (COLACE) 06-11 Oral, BID, ity o f capsule 100 15:15: First dose [place] mg 00 on Wed [facility] 06/11/21 at Branch 0915, Until Discontinu ed, Routine furosemide 2021- No 40mg 40 mg, Univ ers (LASIX) 06-10 0303 Slow IV ity of injection 15:00: 14:51 Push, [place] 40 mg 00 :03 QAM+PM, Medical First dose Branch (after last modificati on) on Wed06/10/21 at 0900, Until Discontinu ed, Routine nystatin Yes Topical, Unive rs (NYSTOP) 06-10 BID, First ity o f powder 02:00: dose on [place] 00 [facility] 06/09/21 at Branch 2000, Until Discontinu ed, Routine amLODIPine 2021- No 10mg 10 mg, Univ ers (NORVASC) 06-08 Oral, ity of tablet 10 20:00: 14:28 DAILY, [place] mg 00 :42 First dose Medical on [facility] 06/08/21 at 1400, Until Discontinu ed, Routine simvastatin Yes 40mg 40 mg, Univ ers (ZOCOR) 06-08 Oral, QHS, ity of tablet 40 03:00: First dose [place] mg 00 on [facility] 06/07/21 at Branch 2100, Until Discontinu ed, Routine DULoxetine 2021- No 30mg 30 mg, Univ ers (CYMBALTA) 06-07 0303 Oral, QPM, it y of capsule 30 23:00: 00:03 First dose [place] mg 00 :40 on [facility] 06/07/21 at Branch 1700, Until Discontinu ed, Routine enoxaparin Yes 40mg 40 mg, Unive rs (LOVENOX) 06-07 Subcutaneo ity of injection 15:00: us, DAILY, [place] 40 mg 00 First dose Medical on [facility] 06/07/21 at 0900, Until Discontinu ed, Routine furosemide 2021- No 40mg 40 mg, Univ ers (LASIX) 06-07 Slow IV ity of injection 15:00: 13:50 Push, [place] 40 mg 00 :25 DAILY, Medical First dose Branch on [facility] 06/07/21 at 0900, Until Discontinu ed, Routine gabapentin Yes 600mg 600 mg, Uni vers (NEURONTIN) 06-07 Oral, TID, it y of capsule 600 14:00: First dose [place] mg 00 on [facility] Medical 06/07/21 at Branch 0800, Until Discontinu ed, Routine ferrous No 325mg 325 mg, Unive rs sulfate 06-07 Oral, TID ity of tablet 325 14:00: 14:51 MEALS, [place] mg 00 :04 First dose Medical on [facility] 06/07/21 at 0800, Until Discontinu ed, Routine carvediloL No 12.5mg 12.5 mg, Univers (COREG) 06-07 Oral, BID ity of tablet 12.5 14:00: 14:49 MEALS, [place] mg 00 :12 First dose Medical on [facility] 06/07/21 at 0800, Until Discontinu ed, Routine hydrALAZINE 2021- No 25mg 25 mg, Uni vers (APRESOLINE 06-07 Oral, ity of ) tablet 25 14:00: 15:30 Q12H, [place] mg 00 :38 First dose Medical on [facility] 06/07/21 at 0800, Until Discontinu ed, Routine polyethylen Yes 17g 17 g, Unive rs e glycol 06-07 Oral, ity of 3350 powder 10:19: [id number], [place] 17 g 44 Starting Medical on [facility] 06/07/21 at 0419, Until Discontinu ed, Constipati on cloNIDine Yes .2mg 0.2 mg, Unive rs (CATAPRES) 06-07 Oral, ity of tablet 0.2 10:18: Q8HPRN, [place] mg 25 Starting Medical on Sat Branch 06/07/21 at 0418, Until Discontinu ed, Routine, HTN crisis ipratropium 2021-0 Yes 3mL 3 mL, Unive rs -albuteroL 06-07 Inhalation ity of (DUONEB) 10:14: , QIDPRN, [place] 0.5 mg-3 52 Starting Medical mg(2.5 mg on Sat Branch base)/3 mL 06/07/21 at nebulizer 0414, solution 3 Until mL Discontinu ed, Routine, Wheezing, Shortness of Breath, Chest tightness hydralAZINE 2021-0 Yes 10mg 10 mg, Univ ers (APRESOLINE 06-07 Slow IV ity o f ) injection 00:50: Push, [place] 10 mg 04 Q6HPRN, Medical Starting Branch on Wed06/06/21 at 1850, Until Discontinu ed, Routine, DBP=>10 0; SBP=>160, For SBP > 160
Ind ication: Hypertensi ve Emergency HYDROcodone 2021-0 Yes 1{tbl} 1 tablet, Univers -acetaminop 06-07 Oral, ity of hen (NORCO) 00:49: Q6HPRN, [place] 10-325 mg 22 Starting Medica l tablet 1 on Wed Branch tablet 06/06/21 at 1849, Until Discontinu ed, Routine, Pain (scale 7-10) ALPRAZolam 2021-0 Yes .5mg 0.5 mg, Univ ers (XANAX) 06-07 Oral, ity of tablet 0.5 00:47: TIDPRN, [place] mg 43 Starting Medical on Fri Branch 06/06/21 at 1847, Until Discontinu ed, Routine, anxiety acetaminoph 2021-0 Yes 650mg 650 mg, Un chrissie en 06-07 Oral, ity of (TYLENOL) 00:47: Q6HPRN, [place] tablet 650 00 Starting Medic al mg on Wed Branch 06/06/21 at 1847, Until Discontinu ed, Routine, Pain (scale 1-3) furosemide 2021-0 202- No 40mg 40 mg, IV U nivers (LASIX) 2-25 02-25 Push, ity of injection 17:45: 16:35 ONCE, 1 [place] 40 mg 00 :00 dose, On Medical Fri Branch 06/06/21 at 1145, BHUMI nitroglycer 2021- No 1[in_us 1 Inch, Univers in (NITROL) 06-06 ] Transderma i ty of 2 % 17:30: 16:32 l (Apply [place] ointment 1 00 :00 To Skin), Medi xavier Inch ONCE, 1 Branch dose, On 06/06/21 at 1130, BHUMI nystatin Yes [id number] Apply Unive rs 100,000 2-07 /[oz_av 100,000 ity of unit/gram 15:51: ] Units/oz [place] powder 56 to area(s) Medical 2 (two) Branch times daily. Apply under breast and abdomen folds topically for yeast related to candidiasi s furosemide Yes [id number] 20mg Take 1 U nivers 20 mg 1-18 tablet by ity of tablet 00:00: mouth [place] 00 every Medical morning. Branch furosemide 2021- No [id number] 20mg Take 1 Univers 20 mg 1-18 03-03 tablet by ity of tablet 00:00: 00:00 mouth [place] 00 :00 every Medical morning. Branch hydrALAZINE 2020-04 Yes 25mg Take 25 mg Univers 25 mg 1-11 by mouth ity of tablet 16:37: every 12 [place] 08 (twelve) Medical hours. Branch multivitami 2020-04 Yes 1{tbl} Take 1 Un chrissie n with 1-11 tablet by ity of minerals 16:37: mouth [place] (MULTIPLE 08 daily. Medical VITAMIN-MIN Branch ERALS) tablet gabapentin 2020-04 Yes 600mg Take 600 Un chrissie 300 mg 1-11 mg by ity of capsule 16:37: mouth 3 [place] 08 (three) Medical times Branch daily. HYDROcodone 2020-04 Yes 1{tbl} Take 1 Un chrissie -acetaminop 1-11 tablet by ity of hen (NORCO) 16:37: mouth 4 [place] 7.5-325 mg 08 (four) Medical per tablet times Branch daily. HYDROmorpho 2020-04 Yes 2mg Take 2 mg U nivers ne 1-11 by mouth ity of (DILAUDID) 16:37: every 6 [place] 2 mg tablet 08 (six) Medical hours as Branch needed. ALPRAZolam 2020-04 Yes .5mg Take 0.5 Uni vers 0.5 mg 1-11 mg by ity of tablet 16:37: mouth 3 [place] 08 (three) Medical times Branch daily. simvastatin 2020-04 Yes 40mg Take 40 mg Univers 20 mg 1-11 by mouth ity of tablet 16:37: at [place] 08 bedtime. Medical Branch DULoxetine 2020-04 Yes 30mg Take 30 mg U nivers 30 mg 1-11 by mouth ity of capsule 16:37: every [place] 08 evening. Medical Branch carvediloL 2020-04 Yes 12.5mg Take 12.5 Univers 12.5 mg 1-11 mg by ity of tablet 16:37: mouth 2 [place] 08 (two) Medical times Branch daily with meals. acetaminoph 2020-04 Yes 650mg Take 650 U nivers en 1-11 mg by ity of (TYLENOL) 16:37: mouth [place] 325 mg 08 every 4 Medical tablet (four) Branch hours as needed for Temp > 38.5 C. polyethylen 2020-04 Yes 17g Take 17 g U nivers e glycol 1-11 by mouth ity of 3350 16:37: as needed [place] (MIRALAX) 08 for Medical 17 Constipati Branch gram/dose on. Mix in powder 4-6 oz of water cloNIDine 2020-04 Yes .2mg Take 0.2 Univ ers 0.2 mg 1-11 mg by ity of tablet 16:37: mouth [place] 08 every 8 Medical (eight) Branch hours as needed (HTN crisis). BP SBP>170 Immunizations Ordered Filled Immunization Date Status Comments [facility] e Immunization Name Name PPD (TB) 2021-02-04 Completed [facility] 00:00:00 [facility] PPD (TB) 2021-02-04 Completed [facility] 00:00:00 [facility] SARS-COV-2 COVID-19 2020-07-10 Completed [facility] VACCINE 00:00:00 [facility] SARS-COV-2 COVID-19 2020-07-10 Completed [facility] VACCINE 00:00:00 [facility] SARS-COV-2 COVID-19 2020-06-12 Completed Unive rsity of [facility]ER VACCINE 00:00:00 [facility] SARS-COV-2 COVID-19 2020-06-12 Completed Unive rsity of PFIZER VACCINE 00:00:00 [facility] Influenza High Dose 2020-01-07 Completed Unive rsity of 00:00:00 [facility] Influenza High Dose 2020-01-07 Completed Unive rsity of 00:00:00 [facility] Influenza High Dose 2020-01-07 Completed Unive rsity of 00:00:00 [facility] Vital Signs Vital Name Observation Time Observation Value Comments Source Systolic blood 2021-06-12 107 mm[Hg] University of pressure 21:47:00 [facility] Diastolic blood 2021-06-12 68 mm[Hg] University o f pressure 21:47:00 [facility] Heart rate 2021-06-12 62 /min University of 21:47:00 [facility] Body temperature 2021-06-12 36 [place] University of 21:47:00 [facility] Respiratory rate 2021-06-12 16 /min University of 21:47:00 [facility] Oxygen saturation 2021-06-12 96 /min [facility] in Arterial blood 21:47:00 [facility] [place] [facility] by Pulse oximetry [place] Body weight 2021-06-11 81.602 kg University of 09:36:00 [facility] BMI 2021-06-11 35.13 kg/m2 University of 09:36:00 [facility] Body height 2021-06-08 152.4 cm University of 18:59:00 [facility] Systolic blood 2021-05-19 185 mm[Hg] pt unsure she University o f pressure 21:47:00 got her meds a [place] [facility] [facility] 2021-05-19 75 mm[Hg] pt unsure she [facility] pressure 21:47:00 got her meds a [facility] Heart rate 2021-05-19 81 /min [facility] of 21:47:00 [facility] Body temperature 2021-05-19 36 Mari [facility] of 21:47:00 [facility] Body height 2021-05-19 152.4 cm [facility] of 21:47:00 [facility] Body weight 2021-05-19 95.255 kg [facility] 21:47:00 [facility] BMI 2021-05-19 41.01 kg/m2 [facility] 21:47:00 [facility] Procedures Procedure Date / Time Performing Clinician Source Performed COVID-19 (ID NOW RAPID 2021-06-12 21:23:00 Braeden Hollis [facility] TESTING) [facility] BASIC METABOLIC PANEL 2021-06-12 12:15:00 Braeden Hollis [facility] (NA, K, CL, CO2, GLUCOSE, Medica l Branch BUN, CREATININE, CA) CBC WITH DIFF 2021-06-12 12:15:[address] [facility] N-TERMINAL PRO-BNP 2021-06-12 12:15:00 Braeden Hollis [facility] POCT GLUCOSE (AUTOMATED) 2021-06-11 17:48:00 Timmy Buenrostro [facility] PHOSPHORUS 2021-06-11 11:12:00 [facility] MAGNESIUM 2021-06-11 11:12:00 [facility] BASIC METABOLIC PANEL 2021-06-11 11:12:00 Braeden Hollis [facility] (NA, K, CL, CO2, GLUCOSE, Medica l Branch BUN, CREATININE, CA) CBC WITH DIFF 2021-06-11 11:12:[address] [facility] GLYCOSYLATED HEMOGLOBIN 2021-06-11 11:12:00 Braeden Hollis [facility] (A1C) [facility] N-TERMINAL PRO-BNP 2021-06-11 11:12:00 Braeden Hollis [facility] POCT GLUCOSE (AUTOMATED) 2021-06-11 02:10:00 Timmy Buenrostro [facility] POCT GLUCOSE (AUTOMATED) 2021-06-10 22:52:00 Timmy Buenrostro [facility] POCT GLUCOSE (AUTOMATED) 2021-06-10 17:48:00 Timmy Buenrostro [facility] HB ECG ROUTINE & RHYTHM 2021-06-10 15:56:12 Terri Razo [facility] POCT GLUCOSE (AUTOMATED) 2021-06-10 13:59:00 Timmy Buenrostro [facility] CBC WITH DIFF 2021-06-10 13:54:00 [facility] 2021-06-10 11:59:00 [facility] (NA, K, CL, CO2, GLUCOSE, Medica l Branch BUN, CREATININE, CA) LIPID PANEL ([id number])(TOTAL 2021-06-10 11:59:00 Terri Razo.H Chitra [facility] CHOLESTEROL, [facility] TRIGLYCERIDES, HDL) N-TERMINAL PRO-BNP 2021-06-10 11:59:00 Terri Razo.[facility] MISCELLANEOUS CULTURE 2021-06-09 23:46:00 [facility] 2021-06-09 18:55:00 [facility] PROTEIN TOTAL 2021-06-09 18:55:00 [facility] LACTATE DEHYDROGENASE 2021-06-09 18:55:00 Timmy [facility] BASIC METABOLIC PANEL 2021-06-09 10:54:00 [facility] ([facility], K, CL, CO2, GLUCOSE, Medica l Branch BUN, CREATININE, CA) CBC WITH DIFF 2021-06-09 10:54:00 Daniella Benavides [facility] XR CHEST 1 VW 2021-06-09 01:18:34 Timmy Buenrostro [facility] TRANSTHORACIC ECHO (TTE) 2021-06-08 18:58:57 Concetta Connolly [facility] VITAMIN B12, LEVEL 2021-06-08 10:25:00 William Johnson [facility] FOLATE 2021-06-08 10:25:[address] [facility] BASIC METABOLIC PANEL 2021-06-08 10:25:00 Daniella Benavides [facility] (NA, K, CL, CO2, GLUCOSE, Medica l Branch BUN, CREATININE, CA) IRON PANEL 2021-06-08 10:25:[address] [facility] CBC WITH DIFF 2021-06-08 10:25:00 Daniella Benavides [facility] PROCALCITONIN 2021-06-08 10:25:00 Concetta Connolly [facility] MAGNESIUM 2021-06-07 12:22:00 Timmy Buenrostro [facility] BASIC METABOLIC PANEL 2021-06-07 12:22:00 Timmy Buenrostro [facility] (NA, K, CL, CO2, GLUCOSE, Medica l Branch BUN, CREATININE, CA) CBC WITH DIFF 2021-06-07 12:21:00 [facility] MISCELLANEOUS CULTURE 2021-06-06 22:06:00 [facility] AC PANEL 20 + LACTIC ACID 2021-06-06 19:53:00 Benjamin Rivera [facility] ACUTE CARE ARTERIAL BLOOD 2021-06-06 19:33:00 Benjamin Rivera [facility] ACUTE CARE ARTERIAL BLOOD 2021-06-06 18:52:00 Benjamin Rivera [facility] XR CHEST 1 VW 2021-06-06 17:29:44 Singer [facility] NOTICE OF PRIVACY 2021-06-06 17:09:39 Doctor Unaleightonigned, [facility] PRACTICES [facility] CONSENT/REFUSAL FOR 2021-06-06 17:09:18 Doctor Unassisidoro, [facility] DIAGNOSIS AND TREATMENT [facility] CBC WITH DIFF 2021-06-06 17:02:00 Singer Benjamin [facility] COVID-19 (ID NOW RAPID 2021-06-06 16:34:00 Singer Benjamin [facility] TESTING) Medical Branch LAB ONLY COVID 2021-06-06 16:34:00 Singer [facility] INTERPRETATION [facility] TROPONIN I 2021-06-06 16:33:00 Singer [facility] COMP. METABOLIC PANEL 2021-06-06 16:33:00 Benjamin Rivera [facility] ([id number]) [facility] N-TERMINAL PRO-BNP 2021-06-06 16:33:00 Benjamin Rivera y [facility] AC PANEL 20 + LACTIC ACID 2021-06-06 16:32:00 Benjamin Rivera [facility] EXTERNAL PROVIDER RECORDS 2021-06-06 06:01:00 Doctor Unassigned, [facility] EMERGENCY DEPARTMENT 2021-06-06 06:01:00 Doctor Unassigned, [facility] DOCUMENTS [facility] Encounters Start End Encounter Admission Attending Care Care Encounter Source Date/Time Date/Time Type Type Clinicians Facility Department ID 2021-06-13 2021-06-13 Transition NOEMI Alejandra [id number] Univers 00:00:00 00:00:00 of Care Aviva SPRINGER [id number] it y [facility] [id number] [facility] 403 Branch 2021-06-06 2021-06-12 Inpatient X [facility]V [facility] [id number] Univers 10:14:00 16:00:00 TIMMY itsheila [facility] 2021-06-06 2021-06-12 Hospital RiveraBenjamin [facility] [id number] Univers 10:14:00 16:00:00 Encounter Timmy Buenrostro [id number] ity [facility] [id number] [id number] [facility] 081 Branch 2021-06-05 2021-06-05 [facility] [id number] Univers 08:30:00 08:30:00 MEMO [id number] ity [facility] 2021-05-19 2021-05-19 Office MYRTLE Montoya [id number] Univers 15:30:00 16:00:00 Visit [facility] [id number] ity of [facility] [id number] [id number] [facility] 205 Branch 2021-05-19 2021-05-19 Outpatient Maude MONTOYA [facility] [id number] Univers 15:30:00 15:30:00 CAT sheila [facility] 2021-01-28 2021-01-28 Outpatient [facility] [id number] [place] 00:00:00 00:00:[address] 2021-01-10 2021-01-17 Inpatient [facility] [id number] [place] 00:00:00 00:00:00 LADAN [address] 2020-12-31 2020-12-31 Outpatient [facility] [id number] [place] 00:00:00 00:00:[address] 2020-12-11 2020-12-11 Outpatient [facility] [id number] [place] 00:00:00 00:00:[address] 2020-09-05 2020-09-05 Outpatient [facility] [id number] [place] 00:00:00 00:00:[address] 2020-09-05 2020-09-05 Outpatient [facility] [id number] [place] 00:00:00 00:00:[address] 2020-09-05 2020-09-05 Outpatient [facility] [id number] [place] 00:00:00 00:00:[address] 2020-09-05 2020-09-05 Outpatient [facility] [id number] [place] 00:00:00 00:00:[address] 2020-08-14 2020-08-14 Outpatient [facility] [id number] [place] 00:00:00 00:00:[address] 2020-07-04 2020-07-04 Outpatient [facility] [id number] [place] 00:00:00 00:00:[address] 2020-07-04 2020-07-04 Outpatient [facility] [id number] [place] 00:00:00 00:00:[address] 2020-06-04 2020-06-04 Outpatient [facility] [id number] [place] 00:00:00 00:00:[address] 2019-11-24 2019-11-24 Outpatient MARLENE, [facility] [id number] [place] 00:00:00 00:00:00 WILFRED [address] 2019-11-22 2019-11-22 Outpatient MARLENE, [facility] [id number] [place] 00:00:00 00:00:00 WILFRED [address] 2019-11-07 2019-11-07 Outpatient MARLENE, [facility] [id number] [place] 00:00:00 00:00:00 WILFRED 940 Method i 2019-11-07 2019-11-07 Outpatient MARLENE, [facility] [id number] [place] 00:00:00 00:00:00 WILFRED 515 [address] i 2019-11-07 2019-11-07 Outpatient MARLENE, [facility] [id number] [place] 00:00:00 00:00:00 WILFRED 681 Method i 2019-06-09 2019-06-12 Inpatient LAV[place], [place] [address] [id number] [place] 00:00:00 00:00:00 SRINIVASAN [address] 2019-05-28 2019-06-01 Inpatient DADA, [facility] 060 [id number] [place] 00:00:00 00:00:00 LUANN [address] 2019-02-24 2019-02-24 Outpatient MARLENE, [facility] [id number] [place] 00:00:00 00:00:00 WILFRED [address] Results Test Description Test Time Test Comments Results Result Comments Source N-TERMINAL PRO-BNP 2021-06-12 14:17:01 Test Item Value Reference Range Interpretation Comme nts NT-proBNP (test code = 406 pg/mL See_Comment H [Aut omated message] The 8640937967) system which ge nerated this result tra nsmitted reference range : <=125. The reference r mara was not used to int erpret this result as ayesha l/abnormal. GRACE (test code = GRACE) Biotin has been reported to cause a negative bias, interpret results relative to patient's use of biotin. Lab Interpretation (test Abnormal code = 59568-4) [facility] METABOLIC PANEL (NA, K, CL, CO2, GLUCOSE, BUN, CREATININE, CA)2021-06-12 14:09:03 Test Item Value Reference Range Interpretation Comments NA (test code = 141 mmol/L 135-145 7960351272) K (test code = 4.1 mmol/L 3.5-5.0 6860509427) CL (test code = 98 mmol/L 98-108 2177152188) CO2 TOTAL (test code = 35 mmol/L 23-31 H 7192288220) AGAP (test code = 2-16 5425621752) BUN (test code = 37 mg/dL 7-23 H 8621114439) GLUCOSE (test code = 151 mg/dL 70-110 H 7728552188) CREATININE (test code = 1.02 mg/dL 0.50-1.04 0957884050) CALCIUM (test code = 8.5 mg/dL 8.6-10.6 L 7722778279) eGFR (test code = mL/min/1.73m2 5412692058) GRACE (test code = GRACE) Association of Glomerular Filtration Rate (GFR) and Staging of Kidney Disease* + --+ --+ ------+| GFR (mL/min/1.73 m2) ?| With Kidney Damage ?| ?Without Kidney Damage+ --------+ --------+ +| ?>90 ?| ?Stage one ?| ? Normal ?+ ---+ ---+ -------+| ?60-89 ?| ?Stage two ?| ? Decreased GFR ? + --+ --+ ------+| ?30-59 ?| ?Stage three ?| ? Stage three ? + --+ --+ ------+| ?15-29 ?| ?Stage four ? | ? Stage four ?+ ---+ ---+ -------+| ?<15 (or dialysis) ? ?| ?Stage five ? | ? Stage five ?+ ---+ ---+ -------+ *Each stage assumes the associated GFR level has been in effect for at least three months. ?Stages 1 to 5, with or without kidney disease, indicate chronic kidney disease. Notes: Determination of stages one and two (with eGFR >59mL/min/1.73 m2) requires estimation of kidney damage for at least three months as defined by structural or functional abnormalities of the kidney, manifested by either:Pathological abnormalities or Markers of kidney damage (including abnormalities in the composition of the blood or urine or abnormalities in imaging tests). Lab Interpretation Abnormal (test code = 44860-1) [facility] WITH [id number] 13:28:37 Test Item Value Reference Range Interpretation Comments WBC (test code = See_Comment [Automated 6690-2) message] The sy stem which generated this result transmitted reference range : 4.30 - 11.10 10*3/?L. The reference range was not used to interpret this result as normal/abnormal . RBC (test code = See_Comment L [Automated 789-8) message] The sy stem which generated this result transmitted reference range : 3.93 - 5.25 10*6/?L. The reference range was not used to interpret this result as normal/abnormal . HGB (test code = 8.8 g/dL 11.6-15.0 L 718-7) HCT (test code = 28.4 % 35.7-45.2 L 4544-3) MCV (test code = 92.5 fL 80.6-95.5 787-2) MCH (test code = 28.7 pg 25.9-32.8 785-6) MCHC (test code = 31.0 g/dL 31.6-35.1 L 786-4) RDW-SD (test code = 56.9 fL 39.0-49.9 H 88645-0) RDW-CV (test code = 17.0 % 12.0-15.5 H 788-0) PLT (test code = See_Comment [Automated 777-3) message] The sy stem which generated this result transmitted reference range : 166 - 358 10*3/ ?L. The reference r mara was not used to interpret this result as normal/abnormal . MPV (test code = 11.9 fL 9.5-12.9 48803-3) NRBC/100 WBC (test See_Comment [Automat ed code = 1028589821) message] The system which generated this result transmitted reference range : 0.0 - 10.0 /100 WBCs. The refer ence range was not u sed to interpret th is result as normal/abnormal . NRBC x10^3 (test code <0.01 See_Comment [Auto mated = 9252970895) message] The s ystem which generated this result transmitted reference range : 10*3/?L. The reference range was not used to interpret this result as normal/abnormal . GRAN MAT (NEUT) % 53.8 % (test code = 770-8) IMM GRAN % (test code 0.10 % = 7939885007) LYMPH % (test code = 32.4 % 736-9) MONO % (test code = 8.1 % 5905-5) EOS % (test code = 4.9 % 713-8) BASO % (test code = 0.7 % 706-2) GRAN MAT x10^3(ANC) 3.92 10*3/uL 1.88-7.09 (test code = 6953405093) IMM GRAN x10^3 (test <0.03 0.00-0.06 code = 4569724998) LYMPH x10^3 (test code 2.36 10*3/uL 1.32-3.29 = 731-0) MONO x10^3 (test code 0.59 10*3/uL 0.33-0.92 = 742-7) EOS x10^3 (test code = 0.36 10*3/uL 0.03-0.39 711-2) BASO x10^3 (test code 0.05 10*3/uL 0.01-0.07 = 704-7) Lab Interpretation Abnormal (test code = 24542-1) [facility], [id number] 20:53:29 Test Item Value Reference Range Interpretation Comments VIT B12 (test code = 309 pg/mL 240-930 5446862489) GRACE (test code = GRACE) Biotin has been reported to cause a positive bias, interpret results relative to patient's use of biotin. Lab Interpretation (test Normal code = 45678-9) [facility] HEMOGLOBIN (A1C)2021-06-11 18:26:31 Test Item Value Reference Range Interpretation Comments HGB A1C (test code = 5.2 % 4.0-5.7 4548-4) GRACE (test code = GRACE) Reference RangesNormal: <5.7%Prediabetes: 5.7 - 6.4%Diabetes: > 6.5% Lab Interpretation (test Normal code = 50793-1) [facility]2021-06-11 18:06:22 Test Item Value Reference Range Interpretation Comments POCT GLU (test code = 0744783287) 100 mg/dL 70-110 Lab Interpretation (test code = Normal 05437-3) [facility]2022-[facility]-02 17:41:06 Test Item Value Reference Range Interpretation Comments FOLATE SER (test code = 5421726732) 6.4 ng/mL 3.0-20.0 Lab Interpretation (test code = Normal 75214-7) [facility] [id number] 16:42:15 Test Item Value Reference Range Interpretation Comments IRON (test code = 7289102095) 40 ug/dL 50-160 L TIBC (test code = 5108577890) 314 ug/dL 250-410 % FE SAT (test code = 7813724560) 13 % 20-50 L Lab Interpretation (test code = Abnormal 85580-8) [facility] (NA, K, CL, CO2, GLUCOSE, BUN, CREATININE, CA)2021-06-11 12:12:21 Test Item Value Reference Range Interpretation Comments NA (test code = 143 mmol/L 135-145 6777701687) K (test code = 3.9 mmol/L 3.5-5.0 1580510520) CL (test code = 100 mmol/L 98-108 5878025691) CO2 TOTAL (test code = 36 mmol/L 23-31 H 2101084042) AGAP (test code = 2-16 4567502381) BUN (test code = 34 mg/dL 7-23 H 7960572807) GLUCOSE (test code = 89 mg/dL 70-110 1138064172) CREATININE (test code = 1.25 mg/dL 0.50-1.04 H 8985108937) CALCIUM (test code = 8.2 mg/dL 8.6-10.6 L 0976985487) eGFR (test code = mL/min/1.73m2 5537622367) GRACE (test code = GRACE) Association of Glomerular Filtration Rate (GFR) and Staging of Kidney Disease* + --+ --+ ------+| GFR (mL/min/1.73 m2) ?| With Kidney Damage ?| ?Without Kidney Damage+ --------+ --------+ +| ?>90 ?| ?Stage one ?| ? Normal ?+ ---+ ---+ -------+| ?60-89 ?| ?Stage two ?| ? Decreased GFR ? + --+ --+ ------+| ?30-59 ?| ?Stage three ?| ? Stage three ? + --+ --+ ------+| ?15-29 ?| ?Stage four ? | ? Stage four ?+ ---+ ---+ -------+| ?<15 (or dialysis) ? ?| ?Stage five ? | ? Stage five ?+ ---+ ---+ -------+ *Each stage assumes the associated GFR level has been in effect for at least three months. ?Stages 1 to 5, with or without kidney disease, indicate chronic kidney disease. Notes: Determination of stages one and two (with eGFR >59mL/min/1.73 m2) requires estimation of kidney damage for at least three months as defined by structural or functional abnormalities of the kidney, manifested by either:Pathological abnormalities or Markers of kidney damage (including abnormalities in the composition of the blood or urine or abnormalities in imaging tests). Lab Interpretation Abnormal (test code = 01346-8) [facility] [id number] 12:12:01 Test Item Value Reference Range Interpretation Comments NT-proBNP (test code 703 pg/mL See_Comment H [Autom ated = 0284854126) message] The system which generated this result transmitted reference range : <=125. The reference range was not used to interpret this result as normal/abnormal . GRACE (test code = GRACE) Biotin has been reported to cause a negative bias, interpret results relative to patient's use of biotin. Lab Interpretation Abnormal (test code = 38992-8) [facility]2022-[facility]-02 12:05:57 Test Item Value Reference Range Interpretation Comments MAGNESIUM (test code = 1034524946) 1.9 mg/dL 1.7-2.4 Lab Interpretation (test code = Normal 43693-2) [facility]2022-[facility]-02 12:05:40 Test Item Value Reference Range Interpretation Comments PHOSPHORUS (test code = 6505326990) 4.4 mg/dL 2.5-5.0 Lab Interpretation (test code = Normal 61578-2) [facility] WITH [id number] 11:43:55 Test Item Value Reference Range Interpretation Comments WBC (test code = See_Comment [Automated 6690-2) message] The sy stem which generated this result transmitted reference range : 4.30 - 11.10 10*3/?L. The reference range was not used to interpret this result as normal/abnormal . RBC (test code = See_Comment L [Automated 789-8) message] The sy stem which generated this result transmitted reference range : 3.93 - 5.25 10*6/?L. The reference range was not used to interpret this result as normal/abnormal . HGB (test code = 8.4 g/dL 11.6-15.0 L 718-7) HCT (test code = 27.4 % 35.7-45.2 L 4544-3) MCV (test code = 93.2 fL 80.6-95.5 787-2) MCH (test code = 28.6 pg 25.9-32.8 785-6) MCHC (test code = 30.7 g/dL 31.6-35.1 L 786-4) RDW-SD (test code = 57.6 fL 39.0-49.9 H 02633-7) RDW-CV (test code = 17.0 % 12.0-15.5 H 788-0) PLT (test code = See_Comment [Automated 777-3) message] The sy stem which generated this result transmitted reference range : 166 - 358 10*3/ ?L. The reference r mara was not used to interpret this result as normal/abnormal . MPV (test code = 11.2 fL 9.5-12.9 60964-0) NRBC/100 WBC (test See_Comment [Automat ed code = 8973790248) message] The system which generated this result transmitted reference range : 0.0 - 10.0 /100 WBCs. The refer ence range was not u sed to interpret th is result as normal/abnormal . NRBC x10^3 (test code <0.01 See_Comment [Auto mated = 0185689800) message] The s ystem which generated this result transmitted reference range : 10*3/?L. The reference range was not used to interpret this result as normal/abnormal . GRAN MAT (NEUT) % 51.0 % (test code = 770-8) IMM GRAN % (test code 0.30 % = 8123424568) LYMPH % (test code = 34.5 % 736-9) MONO % (test code = 10.3 % 5905-5) EOS % (test code = 3.6 % 713-8) BASO % (test code = 0.3 % 706-2) GRAN MAT x10^3(ANC) 4.93 10*3/uL 1.88-7.09 (test code = 2301432253) IMM GRAN x10^3 (test 0.03 10*3/uL 0.00-0.06 code = 1508027703) LYMPH x10^3 (test code 3.34 10*3/uL 1.32-3.29 H = 731-0) MONO x10^3 (test code 1.00 10*3/uL 0.33-0.92 H = 742-7) EOS x10^3 (test code = 0.35 10*3/uL 0.03-0.39 711-2) BASO x10^3 (test code 0.03 10*3/uL 0.01-0.07 = 704-7) Lab Interpretation Abnormal (test code = 78624-0) [facility] GLUCOSE (AUTOMATED)2021-06-11 11:12:24 Test Item Value Reference Range Interpretation Comments POCT GLU (test code = 9955971405) 108 mg/dL 70-110 Lab Interpretation (test code = Normal 14417-9) [facility] GLUCOSE (AUTOMATED)2021-06-11 02:42:55 Test Item Value Reference Range Interpretation Comments POCT GLU (test code = 7285873899) 178 mg/dL 70-110 H Lab Interpretation (test code = Abnormal 17954-1) [facility] GLUCOSE (AUTOMATED)2021-06-10 23:20:52 Test Item Value Reference Range Interpretation Comments POCT GLU (test code = 5075849389) 120 mg/dL 70-110 H Lab Interpretation (test code = Abnormal 97367-3) [facility] GLUCOSE (AUTOMATED)2021-06-10 18:06:15 Test Item Value Reference Range Interpretation Comments POCT GLU (test code = 9653037411) 92 mg/dL 70-110 Lab Interpretation (test code = Normal 00810-5) [facility] WITH [id number] 14:57:57 Test Item Value Reference Range Interpretation Comments WBC (test code = See_Comment H [Automated 6690-2) message] The sy stem which generated this result transmitted reference range : 4.30 - 11.10 10*3/?L. The reference range was not used to interpret this result as normal/abnormal . RBC (test code = See_Comment L [Automated 789-8) message] The sy stem which generated this result transmitted reference range : 3.93 - 5.25 10*6/?L. The reference range was not used to interpret this result as normal/abnormal . HGB (test code = 9.9 g/dL 11.6-15.0 L 718-7) HCT (test code = 32.0 % 35.7-45.2 L 4544-3) MCV (test code = 93.0 fL 80.6-95.5 787-2) MCH (test code = 28.8 pg 25.9-32.8 785-6) MCHC (test code = 30.9 g/dL 31.6-35.1 L 786-4) RDW-SD (test code = 57.7 fL 39.0-49.9 H 80070-0) RDW-CV (test code = 17.0 % 12.0-15.5 H 788-0) PLT (test code = See_Comment [Automated 777-3) message] The sy stem which generated this result transmitted reference range : 166 - 358 10*3/ ?L. The reference r mara was not used to interpret this result as normal/abnormal . MPV (test code = 11.0 fL 9.5-12.9 91884-9) NRBC/100 WBC (test See_Comment [Automat ed code = 0130578727) message] The system which generated this result transmitted reference range : 0.0 - 10.0 /100 WBCs. The refer ence range was not u sed to interpret th is result as normal/abnormal . NRBC x10^3 (test code <0.01 See_Comment [Auto mated = 0313472390) message] The s ystem which generated this result transmitted reference range : 10*3/?L. The reference range was not used to interpret this result as normal/abnormal . GRAN MAT (NEUT) % 51.8 % (test code = 770-8) IMM GRAN % (test code 0.40 % = 8120643880) LYMPH % (test code = 33.5 % 736-9) MONO % (test code = 10.2 % 5905-5) EOS % (test code = 3.7 % 713-8) BASO % (test code = 0.4 % 706-2) GRAN MAT x10^3(ANC) 6.38 10*3/uL 1.88-7.09 (test code = 1527879411) IMM GRAN x10^3 (test 0.05 10*3/uL 0.00-0.06 code = 4972006322) LYMPH x10^3 (test code 4.12 10*3/uL 1.32-3.29 H = 731-0) MONO x10^3 (test code 1.25 10*3/uL 0.33-0.92 H = 742-7) EOS x10^3 (test code = 0.45 10*3/uL 0.03-0.39 H 711-2) BASO x10^3 (test code 0.05 10*3/uL 0.01-0.07 = 704-7) BASO STIPPLING (test Present A code = 703-9) REACT LYMPHS (test Rare code = 8087962256) Lab Interpretation Abnormal (test code = 52974-3) [id number] 13:13:32 Test Item Value Reference Range Interpretation Comments NT-proBNP (test code 1310 pg/mL See_Comment H [Autom ated = 5389128695) message] The system which generated this result transmitted reference range : <=125. The reference range was not used to interpret this result as normal/abnormal . GRACE (test code = GRACE) Biotin has been reported to cause a negative bias, interpret results relative to patient's use of biotin. Lab Interpretation Abnormal (test code = 75814-3) [facility] (67185)(TOTAL CHOLESTEROL, TRIGLYCERIDES, HDL)2021-06-10 13:05:49 Test Item Value Reference Range Interpretation Comments CHOL (test code = 180 mg/dL 120-200 2985239043) HDL (test code = 38 mg/dL >50 L 1637108185) HDLC RATIO (test code = See_Comment H [Au tomated message] 4525648765) The system [employer] generated this result transmit masoud reference range : <=4.5. The refe rence range was not u sed to interpret th is result as normal/abnormal . TRIG (test code = 88 mg/dL 30-170 5817173812) LDL CHOL (test code = 124 mg/dL See_Comment [Auto mated message] 65673-6) The system [employer] generated this result transmit masoud reference range : <=160. The refe rence range was not u sed to interpret th is result as normal/abnormal . VLDL (test code = 18 mg/dL 5-60 1071722442) Lab Interpretation (test Abnormal code = 84876-3) [facility] (NA, K, CL, CO2, GLUCOSE, BUN, CREATININE, CA)2021-06-10 13:05:49 Test Item Value Reference Range Interpretation Comments NA (test code = 142 mmol/L 135-145 1057084752) K (test code = 4.2 mmol/L 3.5-5.0 4225018898) CL (test code = 100 mmol/L 98-108 0323677617) CO2 TOTAL (test code = 36 mmol/L 23-31 H 8680337255) AGAP (test code = 2-16 6086189506) BUN (test code = 29 mg/dL 7-23 H 3625409905) GLUCOSE (test code = 82 mg/dL 70-110 2539290727) CREATININE (test code = 0.97 mg/dL 0.50-1.04 6918469846) CALCIUM (test code = 8.4 mg/dL 8.6-10.6 L 8574702524) eGFR (test code = mL/min/1.73m2 4196279487) GRACE (test code = GRACE) Association of Glomerular Filtration Rate (GFR) and Staging of Kidney Disease* + --+ --+ ------+| GFR (mL/min/1.73 m2) ?| With Kidney Damage ?| ?Without Kidney Damage+ --------+ --------+ +| ?>90 ?| ?Stage one ?| ? Normal ?+ ---+ ---+ -------+| ?60-89 ?| ?Stage two ?| ? Decreased GFR ? + --+ --+ ------+| ?30-59 ?| ?Stage three ?| ? Stage three ? + --+ --+ ------+| ?15-29 ?| ?Stage four ? | ? Stage four ?+ ---+ ---+ -------+| ?<15 (or dialysis) ? ?| ?Stage five ? | ? Stage five ?+ ---+ ---+ -------+ *Each stage assumes the associated GFR level has been in effect for at least three months. ?Stages 1 to 5, with or without kidney disease, indicate chronic kidney disease. Notes: Determination of stages one and two (with eGFR >59mL/min/1.73 m2) requires estimation of kidney damage for at least three months as defined by structural or functional abnormalities of the kidney, manifested by either:Pathological abnormalities or Markers of kidney damage (including abnormalities in the composition of the blood or urine or abnormalities in imaging tests). Lab Interpretation Abnormal (test code = 76262-6) [facility], [id number] 19:32:21 Test Item Value Reference Range Interpretation Comments GLUCOSE (test code = 4555446263) 133 mg/dL 70-110 H Lab Interpretation (test code = Abnormal 30829-3) [facility]Protein Total [id number] 19:32:21 Test Item Value Reference Range Interpretation Comments T PROTEIN (test code = 7798556490) 7.0 g/dL 6.3-8.2 Lab Interpretation (test code = Normal 80653-8) [facility] HospitalLACTATE [id number] 19:32:21 Test Item Value Reference Range Interpretation Comments LDH (test code = 8981079132) 386 U/L 300-600 Lab Interpretation (test code = Normal 23907-9) [facility]OLIC PAN[facility] (NA, K, CL, CO2, GLUCOSE, BUN, CREATININE, CA)2021-06-09 12:45:24 Test Item Value Reference Range Interpretation Comments NA (test code = 141 mmol/L 135-145 2478745308) K (test code = 4.1 mmol/L 3.5-5.0 3841390010) CL (test code = 103 mmol/L 98-108 3186768487) CO2 TOTAL (test code = 34 mmol/L 23-31 H 2018513370) AGAP (test code = 2-16 8333637112) BUN (test code = 27 mg/dL 7-23 H 5275283539) GLUCOSE (test code = 73 mg/dL 70-110 7261893398) CREATININE (test code = 0.97 mg/dL 0.50-1.04 5448876024) CALCIUM (test code = 8.1 mg/dL 8.6-10.6 L 8277782406) eGFR (test code = mL/min/1.73m2 1974502116) GRACE (test code = GRACE) Association of Glomerular Filtration Rate (GFR) and Staging of Kidney Disease* + --+ --+ ------+| GFR (mL/min/1.73 m2) ?| With Kidney Damage ?| ?Without Kidney Damage+ --------+ --------+ +| ?>90 ?| ?Stage one ?| ? Normal ?+ ---+ ---+ -------+| ?60-89 ?| ?Stage two ?| ? Decreased GFR ? + --+ --+ ------+| ?30-59 ?| ?Stage three ?| ? Stage three ? + --+ --+ ------+| ?15-29 ?| ?Stage four ? | ? Stage four ?+ ---+ ---+ -------+| ?<15 (or dialysis) ? ?| ?Stage five ? | ? Stage five ?+ ---+ ---+ -------+ *Each stage assumes the associated GFR level has been in effect for at least three months. ?Stages 1 to 5, with or without kidney disease, indicate chronic kidney disease. Notes: Determination of stages one and two (with eGFR >59mL/min/1.73 m2) requires estimation of kidney damage for at least three months as defined by structural or functional abnormalities of the kidney, manifested by either:Pathological abnormalities or Markers of kidney damage (including abnormalities in the composition of the blood or urine or abnormalities in imaging tests). Lab Interpretation Abnormal (test code = 47588-2) [facility] WITH [id number] 12:25:41 Test Item Value Reference Range Interpretation Comments WBC (test code = See_Comment [Automated 6690-2) message] The sy stem which generated this result transmitted reference range : 4.30 - 11.10 10*3/?L. The reference range was not used to interpret this result as normal/abnormal . RBC (test code = See_Comment L [Automated 789-8) message] The sy stem which generated this result transmitted reference range : 3.93 - 5.25 10*6/?L. The reference range was not used to interpret this result as normal/abnormal . HGB (test code = 8.5 g/dL 11.6-15.0 L 718-7) HCT (test code = 27.5 % 35.7-45.2 L 4544-3) MCV (test code = 94.2 fL 80.6-95.5 787-2) MCH (test code = 29.1 pg 25.9-32.8 785-6) MCHC (test code = 30.9 g/dL 31.6-35.1 L 786-4) RDW-SD (test code = 58.1 fL 39.0-49.9 H 73674-9) RDW-CV (test code = 17.2 % 12.0-15.5 H 788-0) PLT (test code = See_Comment [Automated 777-3) message] The sy stem which generated this result transmitted reference range : 166 - 358 10*3/ ?L. The reference r mara was not used to interpret this result as normal/abnormal . MPV (test code = 12.0 fL 9.5-12.9 81022-7) NRBC/100 WBC (test See_Comment [Automat ed code = 7129128036) message] The system which generated this result transmitted reference range : 0.0 - 10.0 /100 WBCs. The refer ence range was not u sed to interpret th is result as normal/abnormal . NRBC x10^3 (test code <0.01 See_Comment [Auto mated = 7039958567) message] The s ystem which generated this result transmitted reference range : 10*3/?L. The reference range was not used to interpret this result as normal/abnormal . GRAN MAT (NEUT) % 58.9 % (test code = 770-8) IMM GRAN % (test code 0.40 % = 6880502690) LYMPH % (test code = 27.3 % 736-9) MONO % (test code = 9.5 % 5905-5) EOS % (test code = 3.6 % 713-8) BASO % (test code = 0.3 % 706-2) GRAN MAT x10^3(ANC) 5.79 10*3/uL 1.88-7.09 (test code = 6472288683) IMM GRAN x10^3 (test 0.04 10*3/uL 0.00-0.06 code = 9486630564) LYMPH x10^3 (test code 2.68 10*3/uL 1.32-3.29 = 731-0) MONO x10^3 (test code 0.93 10*3/uL 0.33-0.92 H = 742-7) EOS x10^3 (test code = 0.35 10*3/uL 0.03-0.39 711-2) BASO x10^3 (test code 0.03 10*3/uL 0.01-0.07 = 704-7) Lab Interpretation Abnormal (test code = 84683-7) [facility]an[facility] (TTE)2021-06-08 20:49:41 Test Item Value Reference Range Interpretation Comments LVOT stroke volume (test 74.80 cm3 code = 5138507104) EF(Teich) (test code = 54.40 % 5595102640) LVIDD (test code = 5.90 cm 6911199721) LVIDS (test code = 4.20 cm 1897301285) IVS (test code = 1.08 cm 3204463760) LVPWD (test code = 1.13 cm 4119431408) LVOT diameter (test code 1.99 cm = 4927650211) FS (test code = 29 % 8944636553) MV Peak E Kaushal (test code 103.0 cm/s = 7595337319) MV Peak A Kaushal (test code 96.3 cm/s = 5687613256) E/A ratio (test code = ratio 5890217349) E wave decelartion time 0.20 s (test code = 2726896480) LVOT peak kaushal (test code 125.8 cm/s = 7591852835) LVOT mn grad (test code = mmHg 0374809121) LAV(MOD-sp2) (test code = 114.00 mL 8036396511) Aortic valve mean 116.4 cm/s velocity (test code = 0313157209) Ao peak kaushal (test code = 185.4 cm/s 6773554738) Ao VTI (test code = 34.4 cm 4010817080) AV LVOT peak gradient mmHg (test code = 8084541490) LVOT peak VTI (test code 24.1 cm = 2654706863) AV area by cont VTI (test 2.2 cm2 code = 5864316410) AV area peak kaushal (test 2.1 cm2 code = 0538162087) LV V1 mean (test code = 77.20 cm/s 6849886673) Ao max PG (test code = 13.80 mm[Hg] 5018875578) MV stenosis pressure 1/2 60.0 ms time (test code = 4014445249) MV dec slope (test code = 508.00 cm/s2 9992350015) MV Prop V (test code = 69.30 cm/s 4134134199) AV peak gradient (test mmHg code = 0991488447) AV valve area (test code 2.17 cm2 = 3565239678) AV mean gradient (test mmHg code = 7553012761) PW (test code = 1.13 cm 0.6-1.0 8236282318) EF - 2D (test code = 54.40 % 09673636) Interventricular Septum 1.08 cm Diastolic Thickness by 2D (test code = 7106026) Radiology Study observation (narrative) (test code = 75974-9) GRACE (test code = GRACE) ?Left?Ventricle: Left ventricle is mildly dilated. Moderately increased wall thickness. Low normal systolic function with a visually estimated EF of 50 - 55%. There is pseudonormal diastolic dysfunction. ?Tricuspid?Valve: Insufficient regurgant jet to estimate RVSP. ?IVC/SVC: IVC normal in size. VitalsHeit Weight BSA (Calculated - sq m) BP Pulse 5' (1.524 m) 191 lb (86.6 kg) 1.91 sq meters 135/[address] [facility]PROCALCITONIN2022-02-27 18:13:13 Test Item Value Reference Range Interpretation Comments Procalcitonin (test 0.28 ng/mL <0.07 H code = 7103524096) GRACE (test code = GRACE) INTERPRETATION OF PROCALCITONIN RESULTS IN ADULTS >= 18 YEARS OF AGE Initiation and discontinuation of antibiotics on patients with suspected or confirmed Lower Respiratory Tract Infection in Adults >= 18 years of age. + +-------- --------+ + -----+|Procalcitonin |Interpretation ?|Antibiotic ? ? |Considerations ? |ng/mL ? | ?|recommendation | ? + +-------- --------+ + -----+| <0.1 ? | Bacterial ? ? ?| Strongly ? ? ?| ? | ?| infection very | discouraged ? | Overruling: ? | ?| unlikely ? ? ? | ? | ? Clinically unstable ? ? ? + +-------- --------+ + ? High risk for adverse ? ? | <0.25 ?| Bacterial ? ? ?| Discouraged ? | ? outcome ? | ?| infection ? ? ?| ? | ? SEE IMPORTANT NOTE ?| ?| unlikely ? ? ? | ? | ? + +-------- --------+ + -----+| >=0.25 ? ? ? | Bacterial ? ? ?| Encouraged ? ?| ? | ?| infection ? ? ?| ? | ? | ?| likely ? | ? | Consider treatment failure ?+ +------- ---------+ -+ if levels does not decrease | >0.5 ? | Bacterial ? ? ?| Strongly ? ? ?| appropriately ? | ?| infection very | encouraged ? ?| ? | ?| likely ? | ? | ? + +-------- --------+ + -----+ Discontinuation of antibiotics in high-acuity patients with suspected or confirmed sepsis in Adults >= 18 years of age. + +-------- --------+ + -----+|Procalcitonin |Interpretation ?|Antibiotic ? ? |Considerations ? |ng/mL ? | ?|recommendation | ? + +-------- --------+ + -----+| <0.25 ?| Bacterial ? ? ?| Strongly ? ? ?| ? | ?| infection very | discouraged ? | Overruling: ? | ?| unlikely ? ? ? | ? | ? Clinically unstable ? ? ? + +-------- --------+ + ? High risk for adverse ? ? | <0.5 or drop | Bacterial ? ? ?| Discouraged ? | ? outcome ? | >80% from ? ?| infection ? ? ?| ? | ? SEE IMPORTANT NOTE ?| highest PCT ?| unlikely ? ? ? | ? | ? | level ?| ?| ? | ? + +-------- --------+ + -----+| >=0.5 ?| Bacterial ? ? ?| Encouraged ? ?| ? | ?| infection ? ? ?| ? | ? | ?| likely ? | ? | Consider treatment failure ?+ +------- ---------+ -+ if levels does not decrease | >1.0 ? | Bacterial ? ? ?| Strongly ? ? ?| appropriately ? | ?| infection very | encouraged ? ?| ? | ?| likely ? | ? | ? + +-------- --------+ + -----+ Percentage of drop of Procalcitonin calculation for Discontinuation of antibiotics in high-acuity patients with suspected or confirmed sepsis in Adults >= 18 years of age. ? Procalcitonin highest{}-Procalcitonin current{}Delta Procalcitonin = x100% ? Procalcitonin current {} IMPORTANT NOTE: Procalcitonin may be elevated without bacterial infection by physiologic stress related to trauma, bhandari, chronic dialysis, metastatic cancer, surgery in the past seven days, malaria, some fungal infections, and some forms of vasculitis. The interpretation algorithm may not apply to patients with immunosuppression (equivalent of >10 mg of prednisone daily), HIV with CD4 cell count < 350 cells/mm3, active malignancy on systemic chemotherapy, solid organ transplant or hematopoietic stem cell transplantation, or hospital acquired pneumonia. Additionally, some clinical trials of procalcitonin have excluded patients with shock requiring vasopressor use, acute respiratory failure requiring mechanical ventilation, or those with known lung abscess/empyema. For further information please refer to:[email or web address] Lab Interpretation Abnormal (test code = 94003-2) [facility] METABOLIC PANEL (NA, K, CL, CO2, GLUCOSE, BUN, CREATININE, CA)2021-06-08 11:33:12 Test Item Value Reference Range Interpretation Comments NA (test code = 142 mmol/L 135-145 8651363224) K (test code = 3.6 mmol/L 3.5-5.0 6620484642) CL (test code = 101 mmol/L 98-108 5309789582) CO2 TOTAL (test code = 38 mmol/L 23-31 H 8769518731) AGAP (test code = 2-16 7124921415) BUN (test code = 25 mg/dL 7-23 H 0352604750) GLUCOSE (test code = 81 mg/dL 70-110 9137103133) CREATININE (test code = 1.11 mg/dL 0.50-1.04 H 7114960879) CALCIUM (test code = 8.4 mg/dL 8.6-10.6 L 1610204304) eGFR (test code = mL/min/1.73m2 6269427671) GRACE (test code = GRACE) Association of Glomerular Filtration Rate (GFR) and Staging of Kidney Disease* + --+ --+ ------+| GFR (mL/min/1.73 m2) ?| With Kidney Damage ?| ?Without Kidney Damage+ --------+ --------+ +| ?>90 ?| ?Stage one ?| ? Normal ?+ ---+ ---+ -------+| ?60-89 ?| ?Stage two ?| ? Decreased GFR ? + --+ --+ ------+| ?30-59 ?| ?Stage three ?| ? Stage three ? + --+ --+ ------+| ?15-29 ?| ?Stage four ? | ? Stage four ?+ ---+ ---+ -------+| ?<15 (or dialysis) ? ?| ?Stage five ? | ? Stage five ?+ ---+ ---+ -------+ *Each stage assumes the associated GFR level has been in effect for at least three months. ?Stages 1 to 5, with or without kidney disease, indicate chronic kidney disease. Notes: Determination of stages one and two (with eGFR >59mL/min/1.73 m2) requires estimation of kidney damage for at least three months as defined by structural or functional abnormalities of the kidney, manifested by either:Pathological abnormalities or Markers of kidney damage (including abnormalities in the composition of the blood or urine or abnormalities in imaging tests). Lab Interpretation Abnormal (test code = 09997-7) [facility] WITH [id number] 11:06:26 Test Item Value Reference Range Interpretation Comments WBC (test code = See_Comment [Automated 1390-2) message] The sy stem which generated this result transmitted reference range : 4.30 - 11.10 10*3/?L. The reference range was not used to interpret this result as normal/abnormal . RBC (test code = See_Comment L [Automated 169-8) message] The sy stem which generated this result transmitted reference range : 3.93 - 5.25 10*6/?L. The reference range was not used to interpret this result as normal/abnormal . HGB (test code = 8.1 g/dL 11.6-15.0 L 718-7) HCT (test code = 25.9 % 35.7-45.2 L 4544-3) MCV (test code = 92.2 fL 80.6-95.5 787-2) MCH (test code = 28.8 pg 25.9-32.8 785-6) MCHC (test code = 31.3 g/dL 31.6-35.1 L 786-4) RDW-SD (test code = 57.1 fL 39.0-49.9 H 72269-8) RDW-CV (test code = 17.0 % 12.0-15.5 H 788-0) PLT (test code = See_Comment [Automated 777-3) message] The sy stem which generated this result transmitted reference range : 166 - 358 10*3/ ?L. The reference r mara was not used to interpret this result as normal/abnormal . MPV (test code = 11.5 fL 9.5-12.9 96142-9) NRBC/100 WBC (test See_Comment [Automat ed code = 6991509726) message] The system which generated this result transmitted reference range : 0.0 - 10.0 /100 WBCs. The refer ence range was not u sed to interpret th is result as normal/abnormal . NRBC x10^3 (test code <0.01 See_Comment [Auto mated = 9317152055) message] The s ystem which generated this result transmitted reference range : 10*3/?L. The reference range was not used to interpret this result as normal/abnormal . GRAN MAT (NEUT) % 48.6 % (test code = 770-8) IMM GRAN % (test code 0.30 % = 3359559525) LYMPH % (test code = 38.1 % 736-9) MONO % (test code = 9.9 % 5905-5) EOS % (test code = 2.6 % 713-8) BASO % (test code = 0.5 % 706-2) GRAN MAT x10^3(ANC) 4.60 10*3/uL 1.88-7.09 (test code = 3591390621) IMM GRAN x10^3 (test 0.03 10*3/uL 0.00-0.06 code = 0602306268) LYMPH x10^3 (test code 3.62 10*3/uL 1.32-3.29 H = 731-0) MONO x10^3 (test code 0.94 10*3/uL 0.33-0.92 H = 742-7) EOS x10^3 (test code = 0.25 10*3/uL 0.03-0.39 711-2) BASO x10^3 (test code 0.05 10*3/uL 0.01-0.07 = 704-7) Lab Interpretation Abnormal (test code = 45940-5) [facility] [id number] 13:14:31 Test Item Value Reference Range Interpretation Comments MAGNESIUM (test code = 3631752594) 1.8 mg/dL 1.7-2.4 Lab Interpretation (test code = Normal 89482-8) [facility] Metabolic Panel (NA, K, CL, CO2, GLUCOSE, BUN, CREATININE, CA)2021-06-07 13:14:11 Test Item Value Reference Range Interpretation Comments NA (test code = 141 mmol/L 135-145 5951604769) K (test code = 4.3 mmol/L 3.5-5.0 9407741367) CL (test code = 103 mmol/L 98-108 7467945090) CO2 TOTAL (test code = 34 mmol/L 23-31 H 3567535378) AGAP (test code = 2-16 0174285076) BUN (test code = 19 mg/dL 7-23 5310667772) GLUCOSE (test code = 85 mg/dL 70-110 0857990524) CREATININE (test code = 0.84 mg/dL 0.50-1.04 4496106512) CALCIUM (test code = 8.5 mg/dL 8.6-10.6 L 2411343836) eGFR (test code = mL/min/1.73m2 0338236648) GRACE (test code = GRACE) Association of Glomerular Filtration Rate (GFR) and Staging of Kidney Disease* + --+ --+ ------+| GFR (mL/min/1.73 m2) ?| With Kidney Damage ?| ?Without Kidney Damage+ --------+ --------+ +| ?>90 ?| ?Stage one ?| ? Normal ?+ ---+ ---+ -------+| ?60-89 ?| ?Stage two ?| ? Decreased GFR ? + --+ --+ ------+| ?30-59 ?| ?Stage three ?| ? Stage three ? + --+ --+ ------+| ?15-29 ?| ?Stage four ? | ? Stage four ?+ ---+ ---+ -------+| ?<15 (or dialysis) ? ?| ?Stage five ? | ? Stage five ?+ ---+ ---+ -------+ *Each stage assumes the associated GFR level has been in effect for at least three months. ?Stages 1 to 5, with or without kidney disease, indicate chronic kidney disease. Notes: Determination of stages one and two (with eGFR >59mL/min/1.73 m2) requires estimation of kidney damage for at least three months as defined by structural or functional abnormalities of the kidney, manifested by either:Pathological abnormalities or Markers of kidney damage (including abnormalities in the composition of the blood or urine or abnormalities in imaging tests). Lab Interpretation Abnormal (test code = 60675-5) [facility] with [id number] 12:41:51 Test Item Value Reference Range Interpretation Comments WBC (test code = See_Comment [Automated 6690-2) message] The sy stem which generated this result transmitted reference range : 4.30 - 11.10 10*3/?L. The reference range was not used to interpret this result as normal/abnormal . RBC (test code = See_Comment L [Automated 789-8) message] The sy stem which generated this result transmitted reference range : 3.93 - 5.25 10*6/?L. The reference range was not used to interpret this result as normal/abnormal . HGB (test code = 8.8 g/dL 11.6-15.0 L 718-7) HCT (test code = 28.2 % 35.7-45.2 L 4544-3) MCV (test code = 92.2 fL 80.6-95.5 787-2) MCH (test code = 28.8 pg 25.9-32.8 785-6) MCHC (test code = 31.2 g/dL 31.6-35.1 L 786-4) RDW-SD (test code = 59.5 fL 39.0-49.9 H 77572-8) RDW-CV (test code = 17.5 % 12.0-15.5 H 788-0) PLT (test code = See_Comment [Automated 777-3) message] The sy stem which generated this result transmitted reference range : 166 - 358 10*3/ ?L. The reference r mara was not used to interpret this result as normal/abnormal . MPV (test code = 11.8 fL 9.5-12.9 95239-4) NRBC/100 WBC (test See_Comment [Automat ed code = 7782548287) message] The system which generated this result transmitted reference range : 0.0 - 10.0 /100 WBCs. The refer ence range was not u sed to interpret th is result as normal/abnormal . NRBC x10^3 (test code <0.01 See_Comment [Auto mated = 3407183977) message] The s ystem which generated this result transmitted reference range : 10*3/?L. The reference range was not used to interpret this result as normal/abnormal . GRAN MAT (NEUT) % 65.4 % (test code = 770-8) IMM GRAN % (test code 0.40 % = 6145973891) LYMPH % (test code = 24.5 % 736-9) MONO % (test code = 8.1 % 5905-5) EOS % (test code = 1.1 % 713-8) BASO % (test code = 0.5 % 706-2) GRAN MAT x10^3(ANC) 6.41 10*3/uL 1.88-7.09 (test code = 3756561524) IMM GRAN x10^3 (test 0.04 10*3/uL 0.00-0.06 code = 6601532753) LYMPH x10^3 (test code 2.41 10*3/uL 1.32-3.29 = 731-0) MONO x10^3 (test code 0.80 10*3/uL 0.33-0.92 = 742-7) EOS x10^3 (test code = 0.11 10*3/uL 0.03-0.39 711-2) BASO x10^3 (test code 0.05 10*3/uL 0.01-0.07 = 704-7) Lab Interpretation Abnormal (test code = 68647-4) [facility] + LACTIC [id number] 19:54:30 Test Item Value Reference Range Interpretation Comments PH (test code = 2) 7.35-7.45 PCO2 (test code = See_Comment H [Automat ed 1747912417) message] The sy stem which generated this result transmitted reference range : 35 - 45 mmHg. The reference range was not used to interpret this result as normal/abnormal . PO2 (test code = See_Comment L [Automated 0313538497) message] The sy stem which generated this result transmitted reference range : 80 - 100 mmHg. The reference range was not used to interpret this result as normal/abnormal . HCO3 (test code = See_Comment H [Automate d 4894304386) message] The sy stem which generated this result transmitted reference range : 22 - 26 mEq/L. The reference range was not used to interpret this result as normal/abnormal . BE (test code = See_Comment H [Automated 4959751122) message] The sy stem which generated this result transmitted reference range : -3.0 - 3.0 mEq/ L. The reference r mara was not used to interpret this result as normal/abnormal . THB (test code = 10.0 g/dL 12.0-16.0 L 0222420622) %O2HB (test code = 87.9 % 94.0-99.0 L 0644967372) %COHB ART (test code = 0.3 % 0.0-1.5 6589222584) %METHB ART (test code = 0.3 % 0.4-1.5 L 6039361161) VOL%O2 ART (test code = 12.4 % 15.0-23.0 L 2687442676) NA (test code = 142 mmol/L 135-145 7642544679) K+ (test code = 4.3 mmol/L 3.5-5.0 3745689413) AC CA IONZ (test code = 4.80 mg/dL 4.50-5.30 2484265611) GLUCOSE (test code = 92 mg/dL 70-110 0444156267) LACTIC ACID (test code 1.08 mmol/L 0.50-2.20 = 2113054885) Lab Interpretation Abnormal (test code = 41450-4) [facility] Arterial Blood Gas.2021-06-06 19:35:33 Test Item Value Reference Range Interpretation Comments PH (test code = 2) 7.35-7.45 PCO2 (test code = See_Comment H [Automat ed message] [id number]) The system [employer] generated this result transmitted ref erence range: 35 - 45 mmHg. The reference r mara was not used to interpret this result as normal/abnor mal. PO2 (test code = See_Comment L [Automated message] [id number]) The system [employer] generated this result transmitted ref erence range: 80 - 100 mmHg. The reference r mara was not used to interpret this result as normal/abnor mal. HCO3 (test code = See_Comment H [Automate d message] [id number]) The system [employer] generated this result transmitted ref erence range: 22 - 26 mEq/L. The reference r mara was not used to interpret this result as normal/abnor mal. BE (test code = See_Comment H [Automated message] [id number]) The system [employer] generated this result transmitted ref erence range: -3.0 - 3 .0 mEq/L. The refe rence range was not u sed to interpret this result as normal/abnor mal. Lab Interpretation (test Abnormal code = 60591-9) [facility]21-[facility]-06 18:53:46 Test Item Value Reference Range Interpretation Comments PH (test code = 2) 7.35-7.45 L PCO2 (test code = See_Comment H [Automat ed message] [id number]) The system [employer] generated this result transmitted ref erence range: 35 - 45 mmHg. The reference r mara was not used to interpret this result as normal/abnor mal. PO2 (test code = See_Comment L [Automated message] [id number]) The system [employer] generated this result transmitted ref erence range: 80 - 100 mmHg. The reference r mara was not used to interpret this result as normal/abnor mal. HCO3 (test code = See_Comment H [Automate d message] [id number]) The system [employer] generated this result transmitted ref erence range: 22 - 26 mEq/L. The reference r mara was not used to interpret this result as normal/abnor mal. BE (test code = See_Comment H [Automated message] [id number]) The system [employer] generated this result transmitted ref erence range: -3.0 - 3 .0 mEq/L. The refe rence range was not u sed to interpret this result as normal/abnor mal. Lab Interpretation (test Abnormal code = 74147-5) [facility] [id number] 18:26:09 Test Item Value Reference Interpretation Comments Range TROPONIN I (test 0.014 ng/mL See_Comment [Automated code = [id number]) message] The system which generated this result transmitted reference range : <=0.034. The reference range was not used to interpret this result as normal/abnormal . GRACE (test code = Reference (Normal) GRACE) Range (defined by the 99th percentile reference limit): <= 0.034 ng/mL Note: Cardiac troponin begins to rise 3-4 hours after the onset of ischemia. Repeat in 4-6 hours if the sample was drawn within 3-4 hours of the onset of the symptom and found normal. Diagnosis of myocardial injury is made with acute changes in cTn concentrations with at least one serial sample above the 99th percentile upper reference limit (URL), taken together with the patient's clinical presentation. Biotin has been reported to cause a negative bias, interpret results relative to patient's use of biotin. Lab Interpretation Normal (test code = 18166-1) [id number] 18:23:07 Test Item Value Reference Range Interpretation Comments NT-proBNP (test code 855 pg/mL See_Comment H [Autom ated = 9561889288) message] The system which generated this result transmitted reference range : <=125. The reference range was not used to interpret this result as normal/abnormal . GRACE (test code = GRACE) Biotin has been reported to cause a negative bias, interpret results relative to patient's use of biotin. Lab Interpretation Abnormal (test code = 80846-0) [facility] WITH [id number] 17:13:56 Test Item Value Reference Range Interpretation Comments WBC (test code = See_Comment H [Automated 6690-2) message] The system which generated this result transmit masoud reference range : 4.30 - 11.10 10*3/?L. The reference range was not used to interpret this result as normal/abnormal . RBC (test code = See_Comment L [Automated 789-8) message] The system which generated this result transmit masoud reference range : 3.93 - 5.25 10*6/?L. The reference range was not used to interpret this result as normal/abnormal . HGB (test code = 8.3 g/dL 11.6-15.0 L 718-7) HCT (test code = 26.7 % 35.7-45.2 L 4544-3) MCV (test code = 92.1 fL 80.6-95.5 787-2) MCH (test code = 28.6 pg 25.9-32.8 785-6) MCHC (test code = 31.1 g/dL 31.6-35.1 L 786-4) RDW-SD (test code = 58.4 fL 39.0-49.9 H 94720-6) RDW-CV (test code = 17.3 % 12.0-15.5 H 788-0) PLT (test code = See_Comment [Automated 777-3) message] The system which generated this result transmit masoud reference range : 166 - 358 10*3/ ?L. The reference range was not u sed to interpret th is result as normal/abnormal . MPV (test code = 11.1 fL 9.5-12.9 32224-5) NRBC/100 WBC (test See_Comment [Automat ed code = 5153618156) message] The system which generated this result transmit masoud reference range : 0.0 - 10.0 /100 WBCs. The reference range was not used to interpret this result as normal/abnormal . NRBC x10^3 (test code <0.01 See_Comment [Auto mated = 0754627127) message] The system which generated this result transmit masoud reference range : 10*3/?L. The reference range was not used to interpret this result as normal/abnormal . GRAN MAT (NEUT) % 82.8 % (test code = 770-8) IMM GRAN % (test code 0.50 % = 5485768748) LYMPH % (test code = 10.1 % 736-9) MONO % (test code = 5.3 % 5905-5) EOS % (test code = 1.1 % 713-8) BASO % (test code = 0.2 % 706-2) GRAN MAT x10^3(ANC) 10.06 10*3/uL 1.88-7.09 H (test code = 2870707884) IMM GRAN x10^3 (test 0.06 10*3/uL 0.00-0.06 code = 9237092979) LYMPH x10^3 (test code 1.23 10*3/uL 1.32-3.29 L = 731-0) MONO x10^3 (test code 0.65 10*3/uL 0.33-0.92 = 742-7) EOS x10^3 (test code = 0.13 10*3/uL 0.03-0.39 711-2) BASO x10^3 (test code 0.03 10*3/uL 0.01-0.07 = 704-7) Lab Interpretation Abnormal (test code = 31365-1) [facility]. METABOLIC PANEL ([id number])2021-06-06 17:08:36 Test Item Value Reference Range Interpretation Comments NA (test code = 144 mmol/L 135-145 9154281246) K (test code = 4.6 mmol/L 3.5-5.0 8944665666) CL (test code = 106 mmol/L 98-108 3932138860) CO2 TOTAL (test code = 30 mmol/L 23-31 9838992868) AGAP (test code = 2-16 7262702991) BUN (test code = 18 mg/dL 7-23 9833129314) GLUCOSE (test code = 193 mg/dL 70-110 H 5688521705) CREATININE (test code = 0.91 mg/dL 0.50-1.04 3934555643) TOTAL BILI (test code = 0.5 mg/dL 0.1-1.6 0482067505) CALCIUM (test code = 8.9 mg/dL 8.6-10.6 2560998524) T PROTEIN (test code = 7.1 g/dL 6.3-8.2 1341133971) ALBUMIN (test code = 4.0 g/dL 3.5-5.0 0402461470) ALK PHOS (test code = 101 U/L 34-122 3300685592) ALTv (test code = 19 U/L 5-35 1742-6) AST(SGOT) (test code = 33 U/L 13-40 9165030539) eGFR (test code = mL/min/1.73m2 7096083202) GRACE (test code = GRACE) Association of Glomerular Filtration Rate (GFR) and Staging of Kidney Disease* + --+ --+ ------+| GFR (mL/min/1.73 m2) ?| With Kidney Damage ?| ?Without Kidney Damage+ --------+ --------+ +| ?>90 ?| ?Stage one ?| ? Normal ?+ ---+ ---+ -------+| ?60-89 ?| ?Stage two ?| ? Decreased GFR ? + --+ --+ ------+| ?30-59 ?| ?Stage three ?| ? Stage three ? + --+ --+ ------+| ?15-29 ?| ?Stage four ? | ? Stage four ?+ ---+ ---+ -------+| ?<15 (or dialysis) ? ?| ?Stage five ? | ? Stage five ?+ ---+ ---+ -------+ *Each stage assumes the associated GFR level has been in effect for at least three months. ?Stages 1 to 5, with or without kidney disease, indicate chronic kidney disease. Notes: Determination of stages one and two (with eGFR >59mL/min/1.73 m2) requires estimation of kidney damage for at least three months as defined by structural or functional abnormalities of the kidney, manifested by either:Pathological abnormalities or Markers of kidney damage (including abnormalities in the composition of the blood or urine or abnormalities in imaging tests). Lab Interpretation Abnormal (test code = 55442-4) [facility] + LACTIC [id number] 16:35:05 Test Item Value Reference Range Interpretation Comments PH (test code = 2) 7.35-7.45 L PCO2 (test code = See_Comment H [Automat ed 8162235670) message] The sy stem which generated this result transmitted reference range : 35 - 45 mmHg. The reference range was not used to interpret this result as normal/abnormal . PO2 (test code = See_Comment H [Automated 7674657585) message] The sy stem which generated this result transmitted reference range : 80 - 100 mmHg. The reference range was not used to interpret this result as normal/abnormal . HCO3 (test code = See_Comment H [Automate d 7123900273) message] The sy stem which generated this result transmitted reference range : 22 - 26 mEq/L. The reference range was not used to interpret this result as normal/abnormal . BE (test code = See_Comment [Automated 9978725205) message] The sy stem which generated this result transmitted reference range : -3.0 - 3.0 mEq/ L. The reference r mara was not used to interpret this result as normal/abnormal . THB (test code = 10.4 g/dL 12.0-16.0 L 7246476665) %O2HB (test code = 98.6 % 94.0-99.0 9443923709) %COHB ART (test code = 0.3 % 0.0-1.5 0714475239) %METHB ART (test code = 0.0 % 0.4-1.5 L 6155994035) VOL%O2 ART (test code = 14.7 % 15.0-23.0 L 1576209686) NA (test code = 143 mmol/L 135-145 0918570669) K+ (test code = 4.2 mmol/L 3.5-5.0 1711736240) AC CA IONZ (test code = 4.80 mg/dL 4.50-5.30 7556111412) GLUCOSE (test code = 185 mg/dL 70-110 H 7373522737) LACTIC ACID (test code 1.29 mmol/L 0.50-2.20 = 1543351125) Lab Interpretation Abnormal (test code = 61734-8) [facility] RNA [Presence] in Respiratory specimen by ANT with probe [id number] 06:30:18 Test Item Value Reference Range Interpretation Comments SARS-CoV-2 (COVID-19) RNA Not detected Not-Detected [Presence] in Respiratory specimen by ANT with probe detection (test code = 61382-1) Whether patient is employed in a healthcare setting (test code = 60011-0) Whether the patient has symptoms related to condition of interest (test code = 65633-1) Patient was hospitalized because of this condition (test code = 63108-8) Whether the patient was admitted to intensive care unit (ICU) for condition of interest (test code = 05887-1) Whether patient resides in a congregate care setting (test code = 04154-0) SARS-COV2/RT-PCR ([facility])2019-12-02 19:28:00 Test Item Value Reference Range Interpretation Comments SARS-COV2/RT-PCR (test Negative Not Detected, Negative, code = 7943198) See external report for linked test SARS-COV-[address] [facility] (test code = 9378978) Negative result for this test determines that SARS-CoV-2 RNA was not present in the specimen above the Limit of Detection (LOD). However, Negative results do not preclude SARS-CoV-2 infection and should not be used as the sole basis for treatment or patient management decisions. Negative results mustbe combined with clinical observations, patient history, and epidemiological information. A false negative result may occur if a specimen is improperly collected, transported or handled. A false negative result should be considered if patient's recent exposures or clinical presentation indicate that COVID-19 (SARS-CoV-2) is likely and diagnostic tests for other causes of illness are negative. Re-testing should be considered in cases of suspected false negatives.The limit of detection for this assay is 800 copies/mL.This SARS CoV-2 test is a real-time RT-PCR test intended for the qualitative detection of nucleic acid from SARS-CoV-2 in a nasopharyngeal swab specimen collected from individuals suspected of COVID-19 by their healthcare provider.This test has not been Food and Drug Administration (FDA) cleared or approved. This is a modified version of an approved Emergency Use Authorization (EUA) and is in the process of review by the FDA. Once authorized by the FDA, the issued EUA will be effective until the declaration that circumstances exist justifying the authorization of the emergency use of in vitro diagnostic tests for detection and/or diagnosis of COVID-19 is terminated under Section 564(b)(2) of the Act or the EUA is revoked under Section 564(g) of the Act.Fact Sheet for Healthcare Providers:https://www.[employer].com/sites/default/files/product/documents/Fact_Shee p_II_Kqvomtbdb_Mczm_QBRG-BoZ-6.pdfFact Sheet for Healthcare Patients:https://www.[employer]/sites/default/files/product/ documents/Hhph_Etneq_Evdqoqlu_Mfks_YGOQ-QkM-4.pdfPerforming Laboratory:[facility] [place] [address]"
[2021-07-14 00:47] LABS: Absolute Lymphocytes (CBC) 3.5 K/uL (0.7-4.9); Hematocrit 29.3 % (36.0-45.0); Lymphocytes % 37.6 % (15.3-44.8); MPV 8.9 fL (7.6-11.3); Protime INR 1.18; RBC Red Blood Cell Count 3.34 M/uL (3.86-4.86)
[2021-07-14 01:00] LABS: ALT/SGPT 19 U/L (12-78); AST/SGOT 15 U/L (15-37); Albumin 3.2 g/dL (3.4-5.0); Alkaline Phosphatase 98 U/L (45-117); BUN Blood Urea Nitrogen 57 mg/dL (7-18); Bicarbonate 35 mmol/L (21-32); Bilirubin Total 0.2 mg/dL (0.2-1.0); Glucose Level 94 mg/dL (74-106); Magnesium 2.5 mg/dL (1.8-2.4); NT PRO-BNP 93 pg/mL (<125); Potassium 4.2 mmol/L (3.5-5.1); Protein, Total 7.3 g/dL (6.4-8.2); Sodium Level 143 mmol/L (136-145)
[2021-07-14 01:21] LABS: Bilirubin Direct < 0.1 mg/dL (0-0.2)
[2021-07-14 01:22] LABS: Troponin High Sensitivity 202.7 pg/mL (<58.9)
--- NOTE | 2021-07-14 01:38 | RAD REPORT ---
EXAM DESCRIPTION: RAD - Chest Single View - 07/14/2021 12:39 am CLINICAL HISTORY: CHEST PAIN Chest pain. COMPARISON: Chest Single View dated 02/04/2021; Chest Single View dated 01/03/2021; Chest Single View dated 11/01/2020; Chest Single View dated 12/02/2019 FINDINGS: Portable technique limits examination quality. Chronic elevation of the right hemidiaphragm is seen. Moderate bilateral pulmonary opacities are pres ent, greater on the left. This may represent pulmonary edema or pneumonia. The heart is moderately en larged. Dual pacer device is present.
[2021-07-14] MEDS ORDERED: HYDROCODONE/APAP 5/325 MG TAB ONE (01:55)
--- NOTE | 2021-07-14 02:49 | P.HP ---
Certification for Inpatient Patient admitted to: Observation With expected LOS: <2 Midnights Patient will require the following post-hospital care: None Practitioner: I am a practitioner with admitting privileges, knowledge of patient current condition, hospital course, and medical plan of care. Services: Services provided to patient in accordance with Admission requirements found in Title 42 Section 412.3 of the Code of Federal Regulations Patient History Date of Service: 07/14/21 Reason for admission: chest pain, TEE History of Present Illness: 65-year-old female with history of chronic diastolic congestive heart failure, CKD 3, atrial fibrillation, diabetes mellitus type 2, hypertension, hyperlipidemia presents emergency department for chest pain. Patient was evaluated in the emergency department initial troponin was 202.7 her renal function also was worse when compared to previous creatinine was 1.98 GFR is 30 baseline creatinine around 1.2 GFR around 50. Patient had a heart catheterization which had no significant CAD findings also had echocardiogram 01/07/2020 with normal EF but did show diastolic dysfunction. Patient reports recent admission at [facility] for anxiety/CHF. Her chest x-ray shows what appears to be pulmonary edema she does have lower extremity edema as well but her BNP is normal today 93. Elevated troponin from demand ischemia, will need to admit for further evaluation and management. Allergies codeine [Codeine] Allergy (Verified 12/02/19 21:57) Itching/Hives/Rash morphine Allergy (Verified 12/02/19 21:57) Itching/Hives/Rash Penicillins Allergy (Verified 12/02/19 21:57) Itching/Hives/Rash Home Medications: ALPRAZolam [Alprazolam] 0.5 mg PO TID 12/03/18 Clonidine HCl [Catapres*] 0.2 mg PO DAILY 12/03/18 Simvastatin 40 mg PO BEDTIME 12/03/18 Gabapentin [Neurontin] 600 mg PO TID 30 Days #90 tablet 01/09/21 Medihoney [Medihoney Woundcare Gel*] 1 appl TOP DAILY 30 Days #1 tube 01/09/21 Carvedilol [Coreg] 12.5 mg PO BID 02/04/21 Hydrocodone Bit/Acetaminophen [Hydrocodon-Acetaminophn 10-325] 1 tab PO QID 02/04/21 Doxycycline Hyclate 100 mg PO BID 5 Days #10 tablet 02/07/21 Duloxetine HCl [Cymbalta] 30 mg PO BEDTIME 30 Days #30 cap 02/07/21 - Past Medical/Surgical History Diabetic: Yes -: Chronic renal disease, Nephrology-Dr. Uribe -: Gout -: Obesity -: CHF, diastolic cardiology-Dr. Luque -: Hyperlipidemia -: Anemia -: Anxiety -: Chronic back pain -: Previous neck fusion -: Previous back fusion -: Back surgeries -: Cholecystectomy -: Appendectomy -: Hysterectomy -: Pacemaker/defibrillator Psychosocial/ Personal History: She is currently . Has 2 children. Has 9 grandchildren. She does not work. - Family History Father -: Heart disease Mother -: Heart disease - Social History Alcohol use: No CD- Drugs: No Caffeine use: No Place of Residence: Home Review of Systems 10-point ROS is otherwise unremarkable Cardiovascular: Chest Pain, Edema Physical Examination - Physical Exam General: Alert, In no apparent distress, Oriented x3 HEENT: Atraumatic, PERRLA, Mucous membr. moist/pink, EOMI, Sclerae nonicteric Neck: Supple, 2+ carotid pulse no bruit, No LAD, Without JVD or thyroid abnormality Respiratory: Normal air movement, Diminished Cardiovascular: Regular rate/rhythm, Normal S1 S2, Edema (2+ pitting edema bilateral lower extremities) Gastrointestinal: Normal bowel sounds, No tenderness Musculoskeletal: No tenderness Integumentary: No rashes Neurological: Normal speech, Normal strength at 5/5 x4 extr, Normal tone, Normal affect - Studies Laboratory Data (last 24 hrs) 07/14/21 00:25: PT 13.0 H, INR 1.18 07/14/21 00:25: WBC 9.4, Hgb 9.7 L, Hct 29.3 L, Plt Count 265 07/14/21 00:25: Sodium 143, Potassium 4.2, BUN 57 H, Creatinine 1.98 H, Glucose 94, Magnesium 2.5 H D, Total Bilirubin 0.2, AST 15, ALT 19, Alkaline Phosphatase 98 Assessment and Plan - Plan Assessment: Chest pain, NSTEMI TEE superimposed on CKD 3 Acute on chronic diastolic congestive heart failure Hypertension hyperlipidemia Normocytic anemia Plan: Chest pain, NSTEMI: Monitor on telemetry, trend troponin, cardiology consult in place. Suspect demand ischemia related to acute on chronic diastolic congestive heart failure. Had clean heart cath August 2019, last echocardiogram at this facility was December with diastolic dysfunction but normal EF. Patient reports recent hospitalization at [facility] for CHF exacerbation where she was treated with Lasix and diuresed. TEE superimposed on CKD 3: Likely related to recent increase in diuresis/Lasix at [facility]. Will provide gentle hydration throughout the evening renal ultrasound ordered, nephrology consulted. Acute on chronic diastolic congestive heart failure: This x-ray appears to show pulmonary edema although BNP is normal, patient has not had any signs or symptoms of pneumonia her white blood cell count is within normal limits denies any fever, chills or cough. Provide gentle hydration for renal function will repeat chest x-ray tomorrow cardiology consult is in place. Appreciate further input from nephrology and cardiology. Patient without any respiratory distress currently 100% on 3 L per nasal cannula which she does use at home. Hypertension: Obtain and continue home medications hyperlipidemia:Obtain and continue home medications Normocytic anemia: Monitor CBC suspect anemia of chronic disease DVT PPX: Heparin Code status:full Discharge Plan: Home Plan to discharge in: 24 Hours - Advance Directives Does patient have a Living Will: No Does patient have a Durable POA for Healthcare: No - Code Status/Comfort Care Code Status Assessed: Yes (Full code) Critical Care: No Time Spent Managing Pts Care (In Minutes): 55
--- NOTE | 2021-07-14 02:53 | ER ---
Nurse's Notes [facility] Name: Emeli Perez Age: 65 yrs Sex: Female : 1955 Arrival Date: 07/13/2021 Time: 23:40 Bed 5 Private MD: Diagnosis: Subsequent non-ST elevation (NSTEMI) myocardial infarction Presentation: 07/13 23:36 Chief complaint: EMS states: patient woke up with CP she described stabbing and left ke1 leg pain\\T\\ around 2300. Patient has HX of stroke, left side weakness from previous stroke , aspirin 324 mg given by EMS , B/p in the 150's systolic and HR between 80-100 per EMS. Pt on 3L NC at home. Coronavirus screen: Vaccine status: unknown. Ebola Screen: No symptoms or risks identified at this time. Initial Sepsis Screen: Does the patient meet any 2 criteria? No. Patient's initial sepsis screen is negative. Does the patient have a suspected source of infection? No. Patient's initial sepsis screen is negative. Risk Assessment: Do you want to hurt yourself or someone else? Patient reports no desire to harm self or others. Onset of symptoms was July 13, 2021 at 23:00. 23:36 Acuity: CORNELIA 3 ke1 07/14 00:39 Method Of Arrival: EMS: [facility] ke1 Triage Assessment: 00:30 General: Appears uncomfortable, Behavior is anxious. Pain: Complains of pain in chest ke1 Pain does not radiate. Pain currently is 8 out of 10 on a pain scale. EENT: No deficits noted. Neuro: Level of Consciousness is awake, alert, Oriented to person, place, time, situation. Cardiovascular: Reports chest pain. Cardiovascular: Respiratory: Airway is patent Respiratory effort is even, unlabored, Breath sounds are clear bilaterally. GI: No deficits noted. Historical: - Allergies: 00:00 Codeine; ke1 00:00 Darvocet-N 100; ke1 00:00 Morphine; ke1 00:00 PENICILLINS; ke1 - PMHx: 00:00 Anxiety; Arthritis; Atrial Fib; CHF; diabetes mellitus; drop foot; Gout; ke1 Hyperlipidemia; Hypertension; kidney failure; - Immunization history:: Client reports receiving the 2nd dose of the Covid vaccine, Flu vaccine is not up to date. - Social history:: Smoking status: Patient reports the use of cigarette tobacco products, 6 cigarettes per day. Screenin:29 Abuse screen: Denies threats or abuse. Nutritional screening: No deficits noted. ke1 Tuberculosis screening: No symptoms or risk factors identified. Fall Risk No fall in past 12 months (0 pts). Secondary diagnosis (15 points) impaired mobility, IV access (20 points). Ambulatory Aid- None/Bed Rest/Nurse Assist (0 pts). Gait- Impaired (20 pts.). Mental Status- Oriented to own ability (0 pts). Total Floyd Fall Scale indicates High Risk Score (45 or more points). Fall prevention measures have been instituted. Side Rails Up X 2 Frequent Obs/Assessments Occuring. 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 ke1 02:30 Reassessment: Patient states feeling better. Patient states symptoms have improved. ke1 3 for CP and left leg pain. Vital Signs: 07/13 23:36 BP 194 / 72; Pulse 77; Resp 18; Temp 98.4; Pulse Ox 100% on R/A; Weight 79.83 kg; ke1 Height 5 ft. (152.40 cm); 23:36 Body Mass Index 34.37 (79.83 kg, 152.40 cm) ke1 ED Course: 23:40 Patient arrived in ED. tw5 23:54 Yoanna Kumar, BRANDIN is Primary Nurse. ke1 23:56 Simeon Taylor MD is Attending Physician. mh7 07/14 00:00 Triage completed. ke1 00:20 Missed attempt(s): 22 gauge antecubital area. ke1 00:40 Missed attempt(s): 22 gauge in left upper arm. ke1 00:41 XRAY Chest (1 view) In Process Unspecified. EDMS 00:41 No provider procedures requiring assistance completed. Oxygen administration via nasal ke1 cannula \\T\\ 3L/min. 00:43 Arm band placed on. ke1 00:43 Bed in low position. Call light in reach. Side rails up X 1. Side rails up X2. Cardiac ke1 monitor on. Pulse ox on. NIBP on. 00:51 Missed attempt(s): 20 gauge in right forearm. Bleeding controlled, band aid applied, tw5 catheter tip intact. 01:21 Notified ED physician of a critical lab result(s). troponin 202.7. tw5 02:00 Inserted saline lock: 22 gauge in left antecubital area, using aseptic technique. lg3 02:52 Domingo Hayden is Hospitalizing Provider. [facility] 04:10 SARS-COV-2 RT PCR (Document "Date of Onset" if Symptomatic) Sent. ke1 Administered Medications: 01:54 Drug: HYDROcodone-acetaminophen 5 mg-325 mg 1 tabs Route: PO; lg3 01:54 Follow up: Response: No adverse reaction; RASS: Alert and Calm (0) lg3 02:53 Follow up: Response: Marked relief of symptoms ke1 Outcome: 02:52 Decision to Hospitalize by Provider. 7 07/15 00:22 Patient left the ED. bb Signatures: Dispatcher [employer] EDMS Gisela Garcia RN RN bb Ellen Chatman RN RN 3 Simeon Taylor MD MD [facility] Marissa Gallegos tw5 Yoanna Kumar RN RN ke1 Corrections: (The following items were deleted from the chart) 07/14 00:41 00:30 Pain: Complains of pain in left leg Pain does not radiate. Pain currently is 7 ke1 out of 10 on a pain scale. ke1 00:42 07/13 23:36 BP 194 / 72; Pulse 77bpm; Resp 18bpm; Pulse Ox 100% RA; Temp 98.4F; ke1 ke1 07/14 00:52 00:51 Missed attempt(s): 20 gauge in left forearm. Bleeding controlled, band aid tw5 applied, catheter tip intact. tw5
--- NOTE | 2021-07-14 02:53 | EDPHYS ---
Physician Documentation [facility] Name: Emeli Perez Age: 65 yrs Sex: Female : 1955 Arrival Date: 07/13/2021 Time: 23:40 Bed 5 Private MD: ED Physician Simeon Taylor HPI: 07/14 00:15 This 65 yrs old Black Female presents to ER via EMS with complaints of Chest Pain. mh7 00:15 The patient or guardian reports chest pain that is located primarily in the substernal mh7 area. Onset: last night, 2 hour(s) ago. The pain does not radiate. 00:15 Associated signs and symptoms: Pertinent positives: shortness of breath, Pertinent mh7 negatives: abdominal pain, cough, diaphoresis, dizziness, headache, lower extremity pain, lower extremity swelling, lightheadedness, nausea, near syncope, palpitations, recent travel, syncope, vomiting. 00:15 The chest pain is described as sharp. Duration: The patient or guardian reports mh7 multiple episodes, that are intermittent, that wax and wane, with no pattern. Modifying factors: The symptoms are alleviated by nothing. the symptoms are aggravated by nothing. Severity of pain: At its worst the pain was moderate today, in the emergency department the pain has improved moderately. EMS care prior to arrival includes: aspirin. Historical: - Allergies: 00:00 Codeine; ke1 00:00 Darvocet-N 100; ke1 00:00 Morphine; ke1 00:00 PENICILLINS; ke1 - PMHx: 00:00 Anxiety; Arthritis; Atrial Fib; CHF; diabetes mellitus; drop foot; Gout; ke1 Hyperlipidemia; Hypertension; kidney failure; - Immunization history:: Client reports receiving the 2nd dose of the Covid vaccine, Flu vaccine is not up to date. - Social history:: Smoking status: Patient reports the use of cigarette tobacco products, 6 cigarettes per day. ROS: 00:15 Constitutional: Negative for fever, chills, and weight loss, Eyes: Negative for injury, mh7 pain, redness, and discharge, ENT: Negative for injury, pain, and discharge, Neck: Negative for injury, pain, and swelling, Abdomen/GI: Negative for abdominal pain, nausea, vomiting, diarrhea, and constipation, Back: Negative for injury and pain, : Negative for injury, bleeding, discharge, and swelling, MS/Extremity: Negative for injury and deformity, Skin: Negative for injury, rash, and discoloration, Neuro: Negative for headache, weakness, numbness, tingling, and seizure, Psych: Negative for depression, anxiety, suicide ideation, homicidal ideation, and hallucinations, Allergy/Immunology: Negative for hives, rash, and allergies, Endocrine: Negative for neck swelling, polydipsia, polyuria, polyphagia, and marked weight changes, Hematologic/Lymphatic: Negative for swollen nodes, abnormal bleeding, and unusual bruising. Exam: 00:15 Head/Face: Normocephalic, atraumatic. Eyes: Pupils equal round and reactive to light, mh7 extra-ocular motions intact. Lids and lashes normal. Conjunctiva and sclera are non-icteric and not injected. Cornea within normal limits. Periorbital areas with no swelling, redness, or edema. Neck: Trachea midline, no thyromegaly or masses palpated, and no cervical lymphadenopathy. Supple, full range of motion without nuchal rigidity, or vertebral point tenderness. No Meningismus. Chest/axilla: Normal chest wall appearance and motion. Nontender with no deformity. No lesions are appreciated. Cardiovascular: Regular rate and rhythm with a normal S1 and S2. No gallops, murmurs, or rubs. Normal PMI, no JVD. No pulse deficits. Respiratory: Lungs have equal breath sounds bilaterally, clear to auscultation and percussion. No rales, rhonchi or wheezes noted. No increased work of breathing, no retractions or nasal flaring. Abdomen/GI: Soft, non-tender, with normal bowel sounds. No distension or tympany. No guarding or rebound. No evidence of tenderness throughout. Back: No spinal tenderness. No costovertebral tenderness. Full range of motion. Skin: Warm, dry with normal turgor. Normal color with no rashes, no lesions, and no evidence of cellulitis. 00:15 Psych: Awake, alert, with orientation to person, place and time. Behavior, mood, and affect are within normal limits. 00:15 Constitutional: The patient appears in no acute distress, alert, awake, uncomfortable. 00:15 Musculoskeletal/extremity: Left side weakness, chronic. 00:15 Neuro: Orientation: is normal, Mentation: is normal, Memory: is normal, Cranial nerves: grossly normal, Motor: left sided weakness, chronic, Gait: not tested. seizure activity, is not displayed by the patient, Abnormal movements: there are no abnormal movements. Vital Signs: 07/13 23:36 BP 194 / 72; Pulse 77; Resp 18; Temp 98.4; Pulse Ox 100% on R/A; Weight 79.83 kg; ke1 Height 5 ft. (152.40 cm); 23:36 Body Mass Index 34.37 (79.83 kg, 152.40 cm) ke1 MDM: 07/14 02:50 Differential diagnosis: abnormal EKG, acute myocardial infarction, acute pericarditis, 7 anxiety, coronary artery disease chest wall pain, congestive heart failure costochondritis, gastroesophageal reflux disease (GERD), pericarditis, pleurisy, pneumonia, pneumothorax. HEART Score: History: Moderately Suspicious (1), ECG: Non specific repolarization disturbance / LBTB / PM (1), Age: > or = 65 years (2), Risk Factors: 1 or 2 risk factors (1), [Hypertension] [DM] Troponin: > or = 3 x Normal Limit (2), Total Score = 7. The patient was not given aspirin in the Emergency Department. Administered by EMS. Data reviewed: vital signs, nurses notes, EMS record, old medical records, lab test result(s), cardiac enzymes, CBC, electrolytes, EKG, radiologic studies, plain films. Data interpreted: Pulse oximetry: on room air is 100 %. Interpretation: normal. Counseling: I had a detailed discussion with the patient and/or guardian regarding: the historical points, exam findings, and any diagnostic results supporting the discharge/admit diagnosis, the presence of at least one elevated blood pressure reading (>120/80) during this emergency department visit, lab results, radiology results, the need for further work-up and treatment in the hospital. Response to treatment: the patient's symptoms have mildly improved after treatment. 02:52 Patient medically screened. [facility] 07/13 23:57 Order name: Basic Metabolic Panel; Complete Time: 01:22 [facility] 07/13 23:57 Order name: CBC with Diff; Complete Time: 01:17 [facility] 07/13 23:57 Order name: LFT's; Complete Time: 01:40 [facility] 07/13 23:57 Order name: Magnesium; Complete Time: 01:40 7 07/13 23:57 Order name: NT PRO-BNP; Complete Time: 01:40 7 07/13 23:57 Order name: PT-INR; Complete Time: 01:17 7 07/13 23:57 Order name: Troponin HS; Complete Time: 01:40 7 07/14 02:53 Order name: SARS-COV-2 RT PCR (Document "Date of Onset" if Symptomatic) 1 07/14 05:12 Order name: SARS-COV-2 RT PCR [facility] 07/14 05:32 Order name: Comprehensive Metabolic Panel [facility] 07/14 05:32 Order name: Creatine Phosphokinase [facility] 07/14 05:32 Order name: Lipid Profile [facility] 07/14 05:32 Order name: T4 Free [facility] 07/14 05:32 Order name: Thyroid Stimulating Hormone [facility] 07/13 23:57 Order name: XRAY Chest (1 view); Complete Time: 01:40 [facility] 07/13 23:57 Order name: EKG; Complete Time: 23:58 [facility] 07/13 23:57 Order name: Cardiac monitoring; Complete Time: 00:28 7 07/13 23:57 Order name: EKG - Nurse/Tech; Complete Time: 00:28 [facility] 07/13 23:57 Order name: Labs collected and sent; Complete Time: 00:29 7 07/13 23:57 Order name: O2 Per Protocol; Complete Time: 00:29 [facility] 07/13 23:57 Order name: O2 Sat Monitoring; Complete Time: 00:29 [facility] 07/14 08:11 Order name: Troponin High Sensitivity [facility] 07/14 08:11 Order name: US EDMS Administered Medications: 01:54 Drug: HYDROcodone-acetaminophen 5 mg-325 mg 1 tabs Route: PO; lg3 01:54 Follow up: Response: No adverse reaction; RASS: Alert and Calm (0) lg3 02:53 Follow up: Response: Marked relief of symptoms ke1 Disposition Summary: 07/14/21 02:52 Hospitalization Ordered Hospitalization Status: Inpatient Admission [facility] Provider: Domingo Hayden Lucy Condition: Stable [facility] Problem: new [facility] Symptoms: have improved [facility] Bed/Room Type: Standard [facility] Location: Telemetry/MedSurg (Inpatient)(07/14/21 22:27) cg Room Assignment: 207(07/14/21 22:27) cg Diagnosis - Subsequent non-ST elevation (NSTEMI) myocardial infarction [facility] Forms: - Medication Reconciliation Form [facility] - SBAR form [facility] Signatures: Dispatcher [employer] EDDilshad Guzman FNP-C ENTRY PROCESSOR-Cla1 Itzel Yee RN RN cg Ellen Chatman RN RN lg3 Simeon Taylor MD MD 7 Yoanna Kumar RN RN ke1 Corrections: (The following items were deleted from the chart) 02:59 02:52 Telemetry/MedSurg (Inpatient) 7 cg 02:59 02:52 7 cg 22: 02:59 [facility] ER HOLD cg cg 22: 02:59 ERHOLD- cg cg
[2021-07-14] MEDS ORDERED: ONDANSETRON 4 MG/2 ML VIAL IV PRN (04:21)
[2021-07-14] MEDS ORDERED: NA CHLORIDE 0.9% 1,000 ML IV SCH (04:21)
[2021-07-14] MEDS ORDERED: NA CHLORIDE 0.9% 1,000 ML ONE ×2 (04:38→21:45)
[2021-07-14 05:32] LABS: Bilirubin Total 0.2 mg/dL (0.2-1.0); Protein, Total 6.9 g/dL (6.4-8.2); Thyroid Stimulating Hormone 0.216 uIU/mL (0.360-3.740)
[2021-07-14] MEDS ORDERED: FUROSEMIDE 40 MG/4 ML VIAL IV ONE (08:00)
--- NOTE | 2021-07-14 08:11 | RAD REPORT ---
EXAM DESCRIPTION: US - Renal Ultrasound-Complete - 07/14/2021 5:51 am CLINICAL HISTORY: TEE Flank pain COMPARISON: Renal Ultrasound-Complete dated 02/04/2021 FINDINGS: Bowel gas shadowing is present, limiting assessment. Normal renal echogenicity bilaterally. The right kidney measures 10.0 x 3.7 x 3.2 cm. No hydronephrosis, focal mass or perinephric fluid. The left kidney measures 10.3 x 3.9 x 3.7 cm. No hydronephrosis, focal mass or perinephric fluid. The urinary bladder is incompletely distended without gross abnormality seen. IMPRESSION: Unremarkable renal sonogram.
[2021-07-14] MEDS ORDERED: ASPIRIN EC 81 MG TAB PO ONE (08:57)
[2021-07-14] MEDS ORDERED: FUROSEMIDE 40 MG/4 ML VIAL ONE (08:57)
[2021-07-14] MEDS ORDERED: HEPARIN 5000 UNIT/ML 1 ML VIAL ONE (08:57)
[2021-07-14] MEDS ORDERED: HEPARIN 5000 UNIT/ML 1 ML VIAL SQ SCH (09:00)
[2021-07-14] MEDS: ASPIRIN EC 81 MG TAB PO SCH (09:00)
[2021-07-14] MEDS: ALPRAZOLAM 0.5 MG TABLET PO SCH ×3 (09:59→21:00)
[2021-07-14] MEDS: HYDROCODONE/APAP 10/325 TAB PO SCH ×3 (10:00→21:00)
[2021-07-14] MEDS: GABAPENTIN 300 MG CAP PO SCH ×3 (10:00→21:00)
[2021-07-14] MEDS: cloNIDine HCL 0.1 MG TAB PO SCH (10:00)
--- NOTE | 2021-07-14 11:13 | EKG ---
Test Date: 2021-07-13 Test Time: 23:45:23 Stock Fitter: JEANINE MEASUREMENT RESULTS: Intervals: Rate: 83 PA: 156 QRSD: 104 QT: 364 QTc: 427 [place]: P: 41 PA: 156 QRS: -9 T: 98 INTERPRETIVE STATEMENTS: Normal sinus rhythm Possible Left atrial enlargement Left ventricular hypertrophy with repolarization abnormality Abnormal ECG Compared to ECG 02/04/2021 02:07:50 Left ventricular hypertrophy now present Early repolarization now present ST (T wave) deviation no longer present Possible ischemia no longer present Electronically Signed On 07-14-21 11:12:06 CDT by Junaid Elizabeth
--- NOTE | 2021-07-14 11:44 | ECHO ---
HEIGHT: 5 ft 0 in WEIGHT: 175 lb 15.92 oz DATE OF STUDY: 07/14/[address]: Dilshad Interiano NP 2-DIMENSIONAL: YES M.MODE: YES DOPPLER: YES COLOR FLOW: YES TDS: NO PORTABLE: NO DEFINITY: NO BUBBLE STUDY: NO DIAGNOSIS: PULMONARY EDEMA/ELEVATED TROPONIN CARDIAC HISTORY: CATHERIZATION: SURGERY: PROSTHETIC VALVE: PACEMAKER: MEASUREMENTS (cm) DIASTOLIC (NORMALS) SYSTOLIC (NORMALS) IVSd 1.3 (0.6-1.2) LA Diam 4.2 (1.9-4.0) LVEF 52% LVIDd 4.9 (3.5-5.7) LVIDs 3.6 (2.0-3.5) %FS 27% LVPWd 1.3 (0.6-1.2) Ao Diam 2.6 (2.0-3.7) 2 DIMENSIONAL ASSESSMENT: RIGHT ATRIUM: NORMAL LEFT ATRIUM: DILATED RIGHT VENTRICLE: NORMAL LEFT VENTRICLE: LEFT VENTRICULAR HYPERTROPHY TRICUSPID VALVE: NORMAL MITRAL VALVE: NORMAL PULMONIC VALVE: NORMAL AORTIC VALVE: NORMAL PERICARDIAL EFFUSION: NONE AORTIC ROOT: NORMAL LEFT VENTRICULAR WALL MOTION: NORMAL EJECTION FRACTION, DECREASED LEFT VENTRICULAR COMPLIANCE. DOPPLER/COLOR FLOW: MILD TRICUSPID REGURGITATION - NORMAL RIGHT VENTRICULAR SYSTOLIC PRESSURE. COMMENTS: LEFT ATRIAL ENLARGEMENT. LEFT VENTRICULAR HYPERTROPHY. NORMAL EJECTION FRACTION. DIASTOLIC DYSFUNCTION. TECHNOLOGIST: LUIS LEIJA
[2021-07-14] MEDS ORDERED: cloNIDine HCL 0.1 MG TAB ONE (12:11)
[2021-07-14] MEDS ORDERED: carvediloL 6.25 MG TAB ONE ×2 (12:11→21:44)
[2021-07-14] MEDS ORDERED: ALPRAZOLAM 0.5 MG TABLET ONE ×2 (12:12→21:45)
[2021-07-14] MEDS ORDERED: GABAPENTIN 300 MG CAP ONE ×2 (12:12→21:45)
[2021-07-14] MEDS ORDERED: HYDROCODONE/APAP 10/325 TAB ONE ×2 (12:12→21:44)
[2021-07-14 12:33] VITALS: O2SAT 100
--- NOTE | 2021-07-14 14:59 | P.PN ---
Date of Service: 07/14/21 Patient reports pain all over. She stated she panicked this morning because of her generalized body pain and joint pains. She denies shortness of breath. Diagnosis: Chest pain Elevated troponin. Musculoskeletal pain. Anxiety disorder Hypertension Chronic kidney disease stage III. Plan: Troponin trended flat and likely secondary to demand ischemia and decreased renal clearance. Patient seen by cardiology-Dr. Elizabeth. He did she have normal coronary arteries by cardiac catheterization last year. Cardiology recommended medical management. Continue full anticoagulation. Continue Coreg and clonidine. Monitor renal function. Nephrology consulted.
--- NOTE | 2021-07-14 18:27 | P.CNS ---
Date of Consult: 07/14/21 Reason for Consult: TEE/ CKD Requesting Physician: chente spencer Chief Complaint: chest pain, TEE History of Present Illness: 65-year-old female with history of chronic diastolic congestive heart failure, CKD 3, atrial fibrillation, diabetes mellitus type 2, hypertension, hyperlipidemia presents emergency department for chest pain. Patient was evaluated in the emergency department initial troponin was 202.7 her renal function also was worse when compared to previous creatinine was 1.98 GFR is 30 baseline creatinine around 1.2 GFR around 50. Patient had a heart catheterization of which had no significant CAD findings also had echocardiogram 01/07/2020 with normal EF but did show diastolic dysfunction. Patient reports recent admission at [facility] for anxiety/CHF. Her chest x-ray shows what appears to be pulmonary edema she does have lower extremity edema as well but her BNP is normal today 93. Elevated troponin from demand ischemia, will need to admit for further evaluation and management. 00:15 This 65 yrs old Black Female presents to ER via EMS with complaints of Chest Pain. mh7 00:15 The patient or guardian reports chest pain that is located primarily in the substernal mh7 area. Onset: last night, 2 hour(s) ago. The pain does not radiate. 00:15 Associated signs and symptoms: Pertinent positives: shortness of breath, Pertinent mh7 negatives: abdominal pain, cough, diaphoresis, dizziness, headache, lower extremity pain, lower extremity swelling, lightheadedness, nausea, near syncope, palpitations, recent travel, syncope, vomiting. 00:15 The chest pain is described as sharp. Duration: The patient or guardian reports mh7 multiple episodes, that are intermittent, that wax and wane, with no pattern. Modifying factors: The symptoms are alleviated by nothing. the symptoms are aggravated by nothing. Severity of pain: At its worst the pain was moderate today, in the emergency department the pain has improved moderately. EMS care prior to arrival includes: aspirin. Allergies codeine [Codeine] Allergy (Verified 12/02/19 21:57) Itching/Hives/Rash morphine Allergy (Verified 12/02/19 21:57) Itching/Hives/Rash Penicillins Allergy (Verified 12/02/19 21:57) Itching/Hives/Rash Home medications list reviewed: Yes Home Medications: ALPRAZolam [Alprazolam] 0.5 mg PO TID 12/03/18 Clonidine HCl [Catapres*] 0.2 mg PO DAILY 12/03/18 Simvastatin 40 mg PO BEDTIME 12/03/18 Gabapentin [Neurontin] 600 mg PO TID 30 Days #90 tablet 01/09/21 Medihoney [Medihoney Woundcare Gel*] 1 appl TOP DAILY 30 Days #1 tube 01/09/21 Carvedilol [Coreg] 12.5 mg PO BID 02/04/21 Hydrocodone Bit/Acetaminophen [Hydrocodon-Acetaminophn 10-325] 1 tab PO QID 02/04/21 Doxycycline Hyclate 100 mg PO BID 5 Days #10 tablet 02/07/21 Duloxetine HCl [Cymbalta] 30 mg PO BEDTIME 30 Days #30 cap 02/07/21 - Past Medical/Surgical History Diabetic: Yes -: Chronic renal disease, Nephrology-Dr. Uribe -: Gout -: Obesity -: CHF, diastolic cardiology-Dr. Luque -: Hyperlipidemia -: Anemia -: Anxiety -: Chronic back pain -: Previous neck fusion -: Previous back fusion -: Back surgeries -: Cholecystectomy -: Appendectomy -: Hysterectomy -: Pacemaker/defibrillator Psychosocial/ Personal History: She is currently . Has 2 children. Has 9 grandchildren. She does not work. - Family History Father Medical History: Heart disease Mother Medical History: Heart disease - Social History Smoking Status: Current every day smoker Alcohol use: No CD- Drugs: No Caffeine use: No Place of Residence: Home Review of Systems 10-point ROS is otherwise unremarkable General: Weakness, Malaise Cardiovascular: Chest Pain Musculoskeletal: Leg Pain Neurological: Weakness Physical Examination Temp Pulse Resp BP Pulse Ox 97.6 F 60 16 103/85 99 07/14/21 16:00 07/14/21 16:00 07/14/21 16:00 07/14/21 16:00 07/14/21 16:00 General: Oriented x3, Cooperative, Mild distress HEENT: Atraumatic Neck: Supple Respiratory: Clear to auscultation bilaterally Cardiovascular: No edema, Regular rate/rhythm Gastrointestinal: Soft and benign, Non-distended Musculoskeletal: No clubbing, No contractures Integumentary: No rashes, No cyanosis Neurological: Normal speech Laboratory Data (last 24 hrs) 07/14/21 00:25: PT 13.0 H, INR 1.18 07/14/21 00:25: WBC 9.4, Hgb 9.7 L, Hct 29.3 L, Plt Count 265 07/14/21 00:25: Sodium 143, Potassium 4.2, BUN 57 H, Creatinine 1.98 H, Glucose 94, Magnesium 2.5 H D, Total Bilirubin 0.2, AST 15, ALT 19, Alkaline Phosphatase 98 Imagings Data: LEFT VENTRICULAR WALL MOTION: NORMAL EJECTION FRACTION, DECREASED LEFT VENTRICULAR COMPLIANCE. DOPPLER/COLOR FLOW: MILD TRICUSPID REGURGITATION NORMAL RIGHT VENTRICULAR SYSTOLIC PRESSURE. COMMENTS: LEFT ATRIAL ENLARGEMENT. LEFT VENTRICULAR HYPERTROPHY. NORMAL EJECTION FRACTION. DIASTOLIC DYSFUNCTION. EXAM DESCRIPTION: RAD - Chest Single View - 07/14/2021 12:39 am CLINICAL HISTORY: CHEST PAIN Chest pain. COMPARISON: Chest Single View dated 02/04/2021; Chest Single View dated 01/03/2021; Chest Single View dated 11/01/2020; Chest Single View dated 12/02/2019 FINDINGS: Portable technique limits examination quality. Chronic elevation of the right hemidiaphragm is seen. Moderate bilateral pulmonary opacities are present, greater on the left. This may represent pulmonary edema or pneumonia. The heart is moderately enlarged. Dual pacer device is present. EXAM DESCRIPTION: US - Renal Ultrasound-Complete - 07/14/2021 5:51 am CLINICAL HISTORY: TEE Flank pain COMPARISON: Renal Ultrasound-Complete dated 02/04/2021 FINDINGS: Bowel gas shadowing is present, limiting assessment. Normal renal echogenicity bilaterally. The right kidney measures 10.0 x 3.7 x 3.2 cm. No hydronephrosis, focal mass or perinephric fluid. The left kidney measures 10.3 x 3.9 x 3.7 cm. No hydronephrosis, focal mass or perinephric fluid. The urinary bladder is incompletely distended without gross abnormality seen. IMPRESSION: Unremarkable renal sonogram. Conclusions/Impression: TEE likely due to hypovolemia CKD III -No NSAIDs -Gentle IVF change to 1/2NS Alkalosis -Continue IVF 1/2NS Hypermagnesemia -Continue IVF HTN with CKD/ CHF -Continue Coreg Diastolic CHF, chronic -Continue Coreg -Daily weight Anemia in chronic illness -Monitor H&H Case reviewed with Dr. Spencer Thank you kindly for the consultation.
[2021-07-14] MEDS: NACHLORIDE 0.45% 1,000 ML IV SCH (19:00)
[2021-07-14] MEDS ORDERED: ENOXAPARIN 80 MG/0.8 ML SQ SCH (21:00)
[2021-07-14] MEDS ORDERED: ATORVASTATIN 20 MG TAB PO SCH (21:00)
[2021-07-14] MEDS ORDERED: DULOXETINE 30 MG CAP PO SCH (21:00)
[2021-07-14] MEDS: carvediloL 12.5 MG TAB PO SCH (21:00)
[2021-07-14] MEDS ORDERED: HOME MED 1 EA UNK (Simvastatin [Simvastatin] 40 MG Tablet) PO SCH (21:00)
[2021-07-14] MEDS ORDERED: DULOXETINE 30 MG CAP PO ONE (21:44)
[2021-07-14] MEDS ORDERED: ATORVASTATIN 20 MG TAB ONE (21:45)
[2021-07-14] MEDS ORDERED: ENOXAPARIN 80 MG/0.8 ML SQ ONE (21:45)
[2021-07-15] MEDS: HYDROCODONE/APAP 10/325 TAB PO SCH ×2 (02:21→09:00)
[2021-07-15 06:01] VITALS: BMI 33.7
[2021-07-15 06:01] LABS: Absolute Lymphocytes (CBC) 3.4 K/uL (0.7-4.9); Hematocrit 27.3 % (36.0-45.0); Lymphocytes % 43.2 % (15.3-44.8); MPV 8.8 fL (7.6-11.3); RBC Red Blood Cell Count 3.03 M/uL (3.86-4.86)
[2021-07-15 06:23] LABS: Albumin 2.7 g/dL (3.4-5.0); Bilirubin Total 0.2 mg/dL (0.2-1.0); Magnesium 2.4 mg/dL (1.8-2.4); Phosphorus 4.4 mg/dL (2.5-4.9); Potassium 3.9 mmol/L (3.5-5.1); Protein, Total 6.4 g/dL (6.4-8.2)
[2021-07-15 06:29] LABS: Troponin High Sensitivity 198.1 pg/mL (<58.9)
[2021-07-15] MEDS: NACHLORIDE 0.45% 1,000 ML IV SCH (08:20)
[2021-07-15] MEDS ORDERED: MEDIHONEY 44 ML TOPICAL TUBE TOP SCH (09:00)
[2021-07-15] MEDS: cloNIDine HCL 0.1 MG TAB PO SCH (09:00)
--- NOTE | 2021-07-15 09:10 | P.DS ---
Admission Date: 07/14/21 Discharge Date: 07/15/21 Disposition: DC HOME/HOME HEALTH CARE Discharge Condition: FAIR Reason for Admission: chest pain, TEE - Problems (1) NSTEMI (non-ST elevated myocardial infarction) Status: Acute (2) Hypertension Status: Acute (3) T2DM (type 2 diabetes mellitus) Status: Chronic Qualifiers: Diabetes mellitus senior living insulin use: unspecified senior living insulin use status Diabetes mellitus complication status: with kidney complications Diabetes mellitus complication detail: with chronic kidney disease Chronic kidney disease stage 3 subtype: stage 3b (GFR 30-44) (4) Unstable angina Status: Acute Brief History of Present Illness: 65-year-old female with history of chronic diastolic congestive heart failure, CKD 3, atrial fibrillation, diabetes mellitus type 2, hypertension, hyperlipidemia presents emergency department for chest pain. Patient was evaluated in the emergency department initial troponin was 202.7 her renal function also was worse when compared to previous creatinine was 1.98 GFR is 30 baseline creatinine around 1.2 GFR around 50. Patient had a heart catheterization which had no significant CAD findings also had echocardiogram 01/07/2020 with normal EF but did show diastolic dysfunction. Patient reported recent admission at [facility] for anxiety/CHF. Her chest x-ray shows what appears to be pulmonary edema she does have lower extremity edema as well but her BNP is normal today 93. Patient hospitalized for further management. Hospital Course: Patient admitted to the medical floor and treated for NSTEMI with full dose Lovenox. She was seen and evaluated by cardiology who recommended medical management, no further cardiac intervention. Troponin was mildly elevated but trended flat. Patient also had generalized body pain which resolved after resuming her home pain medications. She has tolerated diet and clinically stable. Currently denies any chest pain. Vital Signs/Physical Exam: Temp Pulse Resp BP Pulse Ox 97.6 F 88 20 85/47 L 95 07/15/21 04:00 07/15/21 04:00 07/15/21 04:00 07/15/21 04:00 07/15/21 04:00 General: Alert, In no apparent distress, Oriented x3 HEENT: Mucous membr. moist/pink Neck: JVD not distended Respiratory: Clear to auscultation bilaterally, Normal air movement Cardiovascular: No edema, Regular rate/rhythm, Normal S1 S2 Gastrointestinal: Soft and benign, Non-distended Integumentary: No rashes Neurological: Normal strength at 5/5 x4 extr, Cranial nerves 3-12 intact Laboratory Data at Discharge: WBC 7.8 K/uL (4.3-10.9) D 07/15/21 05:31 Hgb 8.7 g/dL (12.0-15.0) L 07/15/21 05:31 Hct 27.3 % (36.0-45.0) L 07/15/21 05:31 Plt Count 257 K/uL (152-406) 07/15/21 05:31 PT 13.0 SECONDS (9.5-12.5) H 07/14/21 00:25 INR 1.18 07/14/21 00:25 Sodium 143 mmol/L (136-145) 07/15/21 05:31 Potassium 3.9 mmol/L (3.5-5.1) 07/15/21 05:31 BUN 50 mg/dL (7-18) H 07/15/21 05:31 Creatinine 1.40 mg/dL (0.55-1.3) H 07/15/21 05:31 Glucose 120 mg/dL (74-106) H 07/15/21 05:31 Uric Acid 9.0 mg/dL (2.6-6.0) H 07/15/21 05:31 Phosphorus 4.4 mg/dL (2.5-4.9) 07/15/21 05:31 Magnesium 2.4 mg/dL (1.8-2.4) 07/15/21 05:31 Total Bilirubin 0.2 mg/dL (0.2-1.0) 07/15/21 05:31 AST 12 U/L (15-37) L 07/15/21 05:31 ALT 17 U/L (12-78) 07/15/21 05:31 Alkaline Phosphatase 90 U/L (45-117) 07/15/21 05:31 Triglycerides 91 mg/dL (<150) 07/14/21 04:55 Cholesterol 162 mg/dL (<200) 07/14/21 04:55 HDL Cholesterol 38 mg/dL (40-60) L 07/14/21 04:55 Cholesterol/HDL Ratio 4.26 07/14/21 04:55 Home Medications: ALPRAZolam [Alprazolam] 0.5 mg PO TID 12/03/18 Clonidine HCl [Catapres*] 0.2 mg PO DAILY 12/03/18 Simvastatin 40 mg PO BEDTIME 12/03/18 Gabapentin [Neurontin] 600 mg PO TID 30 Days #90 tablet 01/09/21 Medihoney [Medihoney Woundcare Gel*] 1 appl TOP DAILY 30 Days #1 tube 01/09/21 Carvedilol [Coreg] 12.5 mg PO BID 02/04/21 Hydrocodone Bit/Acetaminophen [Hydrocodon-Acetaminophn 10-325] 1 tab PO QID 02/04/21 Doxycycline Hyclate 100 mg PO BID 5 Days #10 tablet 02/07/21 Duloxetine HCl [Cymbalta] 30 mg PO BEDTIME 30 Days #30 cap 02/07/21 Aspirin [Aspirin EC 81 MG] 81 mg PO DAILY #30 tablet. 07/15/21 New Medications: Aspirin [Aspirin EC 81 MG] 81 mg PO DAILY #30 tablet. Diet: AHA Activity: Ad brian Followup: Unknown,U [Primary Care Provider] - Time spent managing pt's care (in minutes): 35
[2021-07-15] MEDS: ALPRAZOLAM 0.5 MG TABLET PO SCH (09:33)
[2021-07-15] MEDS: ASPIRIN EC 81 MG TAB PO SCH (09:33)
[2021-07-15] MEDS: carvediloL 12.5 MG TAB PO SCH (09:34)
[2021-07-15] MEDS: GABAPENTIN 300 MG CAP PO SCH (09:35)
[2021-07-15 09:42] VITALS: BP 113/56
[2021-07-15 09:43] VITALS: TEMP 96.6
--- NOTE | 2021-07-15 21:25 | P.PN ---
Date of Service: 07/15/21 Vital Signs Temp Pulse Resp BP Pulse Ox 96.6 F L 62 16 113/56 L 100 07/15/21 08:00 07/15/21 09:34 07/15/21 08:00 07/15/21 09:34 07/15/21 08:00 Assessment/ Plan: Nephrology No dyspnea No chest pain Feeling better today No acute events overnight Vitals, medications, blood work and imaging reviewed in the chart. General: Oriented x3, Cooperative, Mild distress HEENT: Atraumatic Neck: Supple Respiratory: Clear to auscultation bilaterally Cardiovascular: No edema, Regular rate/rhythm Gastrointestinal: Soft and benign, Non-distended Musculoskeletal: No clubbing, No contractures Integumentary: No rashes, No cyanosis Neurological: Normal speech Laboratory Data (last 24 hrs) 07/14/21 00:25: PT 13.0 H, INR 1.18 07/14/21 00:25: WBC 9.4, Hgb 9.7 L, Hct 29.3 L, Plt Count 265 07/14/21 00:25: Sodium 143, Potassium 4.2, BUN 57 H, Creatinine 1.98 H, Glucose 94, Magnesium 2.5 H D, Total Bilirubin 0.2, AST 15, ALT 19, Alkaline Phosphatase 98 Imagings Data: LEFT VENTRICULAR WALL MOTION: NORMAL EJECTION FRACTION, DECREASED LEFT VENTRICULAR COMPLIANCE. DOPPLER/COLOR FLOW: MILD TRICUSPID REGURGITATION NORMAL RIGHT VENTRICULAR SYSTOLIC PRESSURE. COMMENTS: LEFT ATRIAL ENLARGEMENT. LEFT VENTRICULAR HYPERTROPHY. NORMAL EJECTION FRACTION. DIASTOLIC DYSFUNCTION. EXAM DESCRIPTION: RAD - Chest Single View - 07/14/2021 12:39 am CLINICAL HISTORY: CHEST PAIN Chest pain. COMPARISON: Chest Single View dated 02/04/2021; Chest Single View dated 01/03/2021; Chest Single View dated 11/01/2020; Chest Single View dated 12/02/2019 FINDINGS: Portable technique limits examination quality. Chronic elevation of the right hemidiaphragm is seen. Moderate bilateral pulmonary opacities are present, greater on the left. This may represent pulmonary edema or pneumonia. The heart is moderately enlarged. Dual pacer device is present. EXAM DESCRIPTION: US - Renal Ultrasound-Complete - 07/14/2021 5:51 am CLINICAL HISTORY: TEE Flank pain COMPARISON: Renal Ultrasound-Complete dated 02/04/2021 FINDINGS: Bowel gas shadowing is present, limiting assessment. Normal renal echogenicity bilaterally. The right kidney measures 10.0 x 3.7 x 3.2 cm. No hydronephrosis, focal mass or perinephric fluid. The left kidney measures 10.3 x 3.9 x 3.7 cm. No hydronephrosis, focal mass or perinephric fluid. The urinary bladder is incompletely distended without gross abnormality seen. IMPRESSION: Unremarkable renal sonogram. Conclusions/Impression: TEE likely due to hypovolemia CKD III -No NSAIDs -Gentle IVF Alkalosis -Continue IVF 1/2NS Hypermagnesemia -Continue IVF HTN with CKD/ CHF -Continue Coreg Diastolic CHF, chronic -Continue Coreg -Daily weight Anemia in chronic illness -Monitor H&H
--- NOTE | 2021-07-17 15:50 | CON ---
Date of Consultation: 07/14/2021 Admitted on 07/14/[address] Hayden for chest pain. I saw the patient on 07/14/2021. History Of Present Illness: Ms. Perez is 65. Has a history of anxiety, atrial fibrillation, ying al failure, diabetes, hypertension, and gout. Came in with atypical chest pain, sharp, stabbing. No nausea, vomiting, diaphoresis, PND, orthopnea, pedal edema, palpitations, or syncope. The patient h ad a normal heart catheterization in 2019. Troponin is 198. Creatinine is 1.83. Hemoglobin 9.7. E KG is nonspecific. Chest x-ray showed edema, possible pneumonia, and presence of pacemaker. Past Medical History: As stated above. Allergies: SHE IS ALLERGIC TO MORPHINE, PENICILLIN, AND CODEINE. Review of Systems: Negative. Social History: Negative. Family History: Negative. Medications: At home include Xanax, Coreg, clonidine, Neurontin, and Zocor. Physical Examination: Vital Signs: Stable. She was afebrile. HEENT: Negative. Neck: Supple with no bruit. Chest: Clear. Cardiac: Revealed a paced rhythm. No murmurs gallops or rubs. Abdomen: Benign. Extremities: Revealed no clubbing, cyanosis, or edema. Diagnostic Data: As stated earlier. Impression And Plan: 1.Renal failure, stage IV, probably causing the elevated troponin. Echocardiogram is pending. She will need another outpatient Lexiscan. Her catheterization was normal in 2019. I doubt we are deali ng with coronary artery disease. 2.Congestive heart failure, probably acute, diastolic. Echocardiogram is pending. Continue present regimen, diuresis, watch her creatinine. 3.Anemia. 4.Anxiety. 5.Atrial fibrillation that has resolved. 6.Diabetes, well controlled. 7.Hypertension, poorly controlled. 8.Gout. We can certainly increase her Coreg, increase her clonidine. Consider use of Norvasc 5 mg daily for better blood pressure control. Continue Zocor for dyslipidemia. Again, see what the echo shows. Get an outpatient Lexiscan. Diurese her. Consider antibiotics. Consider Norvasc. NB/MODL Voice ID: [id number] Report ID: [id number]
--- NOTE | 2021-07-18 11:51 | PN ---
Admitted to Dr. Hayden on 07/14/2021. She was seen for chest pain. She has a history of anxiety, at rial fibrillation, renal failure, diabetes, hypertension, and gout. Her creatinine was 1.83. Her tr oponin was elevated. She had a normal heart catheterization 2 years ago. I think her renal failure was causing her elevated troponin with her history of normal catheterization. An echocardiogram was ordered to make sure we do not have any new wall motion abnormalities. The echocardiogram showed an ejection fraction of 52%. No wall motion abnormalities. Some mild diastolic dysfunction with left a trial enlargement. Again, we prefer to treat her medically. She can go home. We will see her in [facility] office as an outpatient. JARON/GOLDIE Voice ID: [id number] Report ID: [id number]
== END 2021-07-15 10:39 | disposition home health service (06) | DRG 280 ==
LOC: ER 23:35 → OBSVTOIN 07-14 02:38 → ERHOLD 07-14 02:38 → 2ND 07-14 23:03
PROVIDERS: ADMIT Internal Medicine; ATTEND Internal Medicine
DX: I13.0 Hypertensive heart and chronic kidney disease with heart failure and stage 1 through stage 4 chronic kidney disease, or unspecified chronic kidney disease (principal); I50.33 Acute on chronic diastolic (congestive) heart failure; I21.A1 Myocardial infarction type 2; N17.9 Acute kidney failure, unspecified; E87.3 Alkalosis; N18.32 Chronic kidney disease, stage 3b; E11.22 Type 2 diabetes mellitus with diabetic chronic kidney disease; M10.9 Gout, unspecified; D64.9 Anemia, unspecified; E78.5 Hyperlipidemia, unspecified; I20.0 Unstable angina; I48.91 Unspecified atrial fibrillation; E83.41 Hypermagnesemia; F41.9 Anxiety disorder, unspecified; F17.210 Nicotine dependence, cigarettes, uncomplicated; R77.8 Other specified abnormalities of plasma proteins; Z79.82 Long term (current) use of aspirin; Z88.5 Allergy status to narcotic agent; Z88.0 Allergy status to penicillin; Z79.899 Other long term (current) drug therapy; Z90.49 Acquired absence of other specified parts of digestive tract; Z90.710 Acquired absence of both cervix and uterus; Z95.810 Presence of automatic (implantable) cardiac defibrillator; Z20.822 Contact with and (suspected) exposure to COVID-19
CPT/HCPCS: 36415; 71045; 76770; 80048; 80053; 80061; 80076; 82550; 83735; 83880; 84100; 84439; 84443; 84484; 84550; 85025; 85610; 93005; 93306; 99285; J1644; J1940; J7030; U0003

== ENCOUNTER 2021-08-18 09:54 | Inpatient (IN) | payer OTHER ==
--- OUTSIDE RECORDS SUMMARY | 2021-08-18 10:00 | XMS REPORT | Continuity of Care Document ---
:[address] [facility] t Address [address] [place] [address] [address] [place] [address] Care Team Providers Name Role Phone Rebecca JOHNSON Primary Care Physician Unavailable Justyn GHOTRA B Attending Clinician Unavailable SANJEEV Attending Clinician Unavailable Singer PALACIO Attending Clinician Sanjeev PALACIO Attending Clinician SILVIO MILLER Attending Clinician Unavailable Maude Villegas Attending Clinician Maude MONTOYA Attending Clinician Unavailable MAHOGANY Attending Clinician Unavailable MD LUPE LEVINE Attending Clinician Unavailable DAGOBERTO Attending Clinician Unavailable MARLENE Attending Clinician Unavailable [...] Treatment Clinician Date DEVRIES DEVRIES Disease Active NPI:183 (dyspnea (dyspnea 2- 780678 1 on on 00:00: exertion) exertion) 00 Acute on Acute on Disease Active NPI:1 83 chronic chronic 2-28 4899147 diastolic diastolic 00:00: CHF CHF 00 (congestiv (congestiv e heart e heart failure), failure), NYHA class NYHA class 3 3 S/P S/P Disease Active NPI:183 placement placement 06-09 1318 781 of cardiac of cardiac 00:00: pacemaker pacemaker 00 History of History of Disease Active N PI:183 bradycardi bradycardi 06-09 13 83971 a a 00:00: 00 Type 2 Type 2 Disease Active NPI:183 diabetes diabetes 06-09 758154 1 mellitus mellitus 00:00: with other with other 00 specified specified complicati complicati on on Dyslipidem Dyslipidem Disease Active N PI:183 ia ia 06-09 2132302 00:00: 00 Essential Essential Disease Active NPI :183 hypertensi hypertensi 06-09 13 13301 on on 00:00: 00 Flash Flash Disease Active NPI:183 pulmonary pulmonary 06-06 1318 781 edema edema 00:00: 00 UTI UTI Disease Active 2020-04 NPI:183 (urinary (urinary 04-19 129718 1 tract tract 00:00: infection) infection) 00 Allergies, Adverse Reactions, Alerts Allergy Allergy Status Severity Reaction(s) Onset Inactive Treating Comm ents Source Name Type Date Date Clinician TRAZODON DRUG Active Unknown-Cmnt 2020-04 INSTRUMENT PERSON I:183 E INGREDI 04-19 0327115 00:00: 00 Trazodon Propensi Active Unknown - 2020-04 NPI :183 e ty to See comments 04-19 1318 781 adverse 00:00: reaction 00 s Codeine Propensi Active Itching NPI:18 3 ty to 12-29 2837507 adverse 00:00: reaction 00 s Morphine Propensi Active Itching NPI:1 83 ty to 12-29 [id number] adverse 00:00: reaction 00 s Penicill Propensi Active Hives NPI:18 3 ins ty to 12-29 [id number] adverse 00:00: reaction 00 s CODEINE DRUG Active Med ITCHING NPI:183 INGREDI 12-29 [id number] 00:00: 00 MORPHINE DRUG Active Med ITCHING NPI:183 INGREDI 12-29 [id number] 00:00: 00 PENICILL Drug Active Med Hives NPI:183 INS Class 9-19 3265307 00:00: 00 Social History Social Habit Start Date Stop Date Quantity Comments Source Exposure to Not sure NPI:[id number] 1 SARS-CoV-2 (event) Education 2021-06-06 2021-06-06 21 00:00:00 00:00:00 Cigarettes smoked 2021-05-19 2021-05-19 NPI:628 [id number] current (pack per 00:00:00 00:00:00 day) - Reported Cigarette pack-years 2021-05-19 2021-05-19 00:00:00 00:00:00 Tobacco use and 2021-05-19 2021-05-19 Never used NPI:14038 [id number] exposure 00:00:00 00:00:00 History of tobacco 1973-04-12 2021-01-10 Smoker NPI:18 [id number] use 00:00:00 00:00:00 [birth year] NPI :[id number] 00:00:00 00:00:00 Smoking Status Start Date Stop Date Source Former smoker 2021-05-19 00:00:00 2021-05-19 00:00:00 NPI:1831 [id number] Medications Ordered Filled Start Stop Current Ordering Indication Dosage Frequency Signature Comments Components Source Medication Medication Date Date Medication? Clinician (SIG) Name Name amLODIPine Yes 5mg Take 1 NPI:1 83 5 mg tablet 3-04 tablet by [id number] 00:00: mouth 00 daily. cyanocobala Yes 1000ug inject 1 NPI:183 min 1,000 3-04 mL under [id number] 1 mcg/mL 00:00: the skin injection 00 daily. spironolact Yes 25mg Take 1 NPI: 183 one 25 mg 3-[place] [id number] tablet 00:00: mouth 00 daily. amLODIPine Yes 5mg Take 1 NPI:1 83 5 mg tablet 3-04 tablet by [id number] 00:00: mouth 00 daily. cyanocobala Yes 1000ug inject 1 NPI:183 min 1,000 3-04 mL under [id number] 1 mcg/mL 00:00: the skin injection 00 daily. spironolact 2021-0 Yes 25mg Take 1 NPI: 183 one 25 mg 3-04 [place] [id number] 81 tablet 00:00: mouth 00 daily. DULoxetine 2021-0 Yes 30mg Take 30 mg N PI:183 30 mg 3-03 by mouth [id number] capsule 18:13: every 45 evening. DULoxetine 2021-0 Yes 30mg Take 30 mg N PI:183 30 mg 3-03 by mouth [id number] capsule 18:13: every 45 evening. ferrous 2021-0 Yes 325mg 325 mg, NPI:18 3 sulfate 3-03 Oral, [id number] tablet 325 15:00: DAILY, mg 00 First dose (after last modificati on) on Wed06/12/21 at 0900, Until Discontinu ed, Routine polyethylen Yes 17g 17 g, NPI:1 83 e glycol 3-03 Oral, [id number] 0719 powder 15:00: DAILY, 17 g 00 First dose on Wed06/12/21 at 0900, Until Discontinu ed, Routine spironolact 0 Yes 25mg 25 mg, NPI: 183 one 3-03 Oral, [id number] (ALDACTONE) 15:00: DAILY, tablet 25 00 First dose mg on Wed06/12/21 at 0900, Until Discontinu ed, Routine bumetanide Yes 2mg 2 mg, NPI:18 3 (BUMEX) 3-03 Oral, [id number] tablet 2 mg 15:00: QAM+PM, 00 First dose on Wed06/12/21 at 0900, Until Discontinu ed, Routine amLODIPine 0 Yes 5mg 5 mg, NPI:18 3 (NORVASC) 3-03 Oral, [id number] tablet 5 mg 15:00: DAILY, 00 First dose (after last modificati on) on Wed06/12/21 at 0900, Until Discontinu ed, Routine hydrALAZINE 2021-2021- No 25mg Take 25 mg NPI:183 25 mg 3-03 03-03 by mouth [id number] tablet 14:18: 00:00 every 12 43 :00 (twelve) hours. multivitami 2021- No 1{tbl} Take 1 N PI:183 n with 3-03 03-03 tablet by [id number] minerals 14:18: 00:00 mouth (MULTIPLE 43 :00 daily. VITAMIN-MIN ERALS) tablet gabapentin 2021- No 600mg Take 600 N PI:183 300 mg 3-03 03-03 mg by [id number] capsule 14:18: 00:00 mouth 3 43 :00 (three) times daily. nystatin 2021- No [id number] Apply NPI: 183 100,000 3-03 03-03 /[oz_av 100,000 21429 81 unit/gram 14:18: 00:00 ] Units/oz powder 43 :00 to area(s) 2 (two) times daily. Apply under breast and abdomen folds topically for yeast related to candidiasi s HYDROcodone 2021- No 1{tbl} Take 1 N PI:183 -acetaminop 3-06 12-03 tablet by 13 [id number] hen (NORCO) 14:18: 00:00 mouth 4 7.5-325 mg 43 :00 (four) per tablet times daily. HYDROmorpho 2021- No 2mg Take 2 mg NPI:183 ne 3- 03-03 by mouth [id number] (DILAUDID) 14:18: 00:00 every 6 2 mg tablet 43 :00 (six) hours as needed. ALPRAZolam 2021- No .5mg Take 0.5 INSTRUMENT PERSON I:183 0.5 mg 3-03 03-03 mg by [id number] tablet 14:18: 00:00 mouth 3 43 :00 (three) times daily. simvastatin 2021- No 40mg Take 40 mg NPI:183 20 mg 3-03 03-03 by mouth [id number] tablet 14:18: 00:00 at 43 :00 bedtime. carvediloL 2021- No 12.5mg Take 12.5 NPI:183 12.5 mg 3-03 03-03 mg by [id number] tablet 14:18: 00:00 mouth 2 43 :00 (two) times daily with meals. acetaminoph 2021- No 650mg Take 650 NPI:183 en 3-03 03-03 mg by [id number] (TYLENOL) 14:18: 00:00 mouth 325 mg 43 :00 every 4 tablet (four) hours as needed for Temp > 38.5 C. polyethylen 2021- No 17g Take 17 g NPI:183 e glycol - 03-03 by mouth [id number] 1 3350 14:18: 00:00 as needed (MIRALAX) 43 :00 for 17 Constipati gram/dose on. Mix in powder 4-6 oz of water cloNIDine 2021- No .2mg Take 0.2 NPI :183 0.2 mg - 03-03 mg by [id number] tablet 14:18: 00:00 mouth 43 :00 every 8 (eight) hours as needed (HTN crisis). BP SBP>170 vitamin C No 100mg Take 100 INSTRUMENT PERSON I:183 (VITAMIN C) - 03-03 mg by [id number] 1 100 mg 14:18: 00:00 mouth tablet 43 :00 daily. ferrous No 325mg Take 325 NPI: 183 sulfate 325 06-12 03-03 mg by [id number] 1 mg (65 mg 14:18: 00:00 mouth 3 iron) 43 :00 (three) tablet times daily with meals. carvediloL Yes 25mg 25 mg, NPI:1 83 (COREG) 3-03 Oral, BID [id number] tablet 25 14:00: MEALS, mg 00 First dose on Thania 06/12/21 at 0800, Until Discontinu ed, Routine iron No 300mg 300 mg, IV NPI:1 83 sucrose 06-12-03 Infusion, [id number] 1 (VENOFER) 02:30: 07:51 ONCE, 300 mg in 00 :00 Administer NaCl 0.9% over 4 (NS) 250 mL Hours, On infusion 06/11/21 at 2030, For 1 dose cyanocobala 2021- Yes 1000ug 1,000 mcg, NPI:183 min 06-12 03-09 Subcutaneo [id number] (VITAMIN 02:15: 14:59 us, DAILY, B12) 00 :00 7 doses, injection First dose 1,000 mcg on Wed06/11/21 at 2015, Last dose on Wed06/17/21 at 0900, Routine acetaminoph 2022-0 Yes 650mg Take 2 NPI :183 en 3-03 tablets by [id number] (TYLENOL) 00:00: mouth 325 mg 00 every 4 tablet (four) hours as needed for Temp > 38.5 C. ALPRAZolam 2022-0 Yes .5mg Take 1 NPI:1 83 0.5 mg 3-03 tablet by [id number] tablet 00:00: mouth 3 00 (three) times daily. bumetanide 2022-0 Yes 2mg Take 1 NPI:1 83 2 mg tablet 3-03 tablet by [id number] 00:00: mouth 00 every morning and evening. carvediloL 2022-0 Yes 25mg Take 1 NPI:1 83 25 mg 3-03 tablet by [id number] tablet 00:00: mouth 2 00 (two) times daily with meals. cloNIDine 2022-0 Yes .2mg Take 1 NPI:18 3 0.2 mg 3-03 tablet by [id number] tablet 00:00: mouth 00 every 8 (eight) hours as needed (HTN crisis). docusate 202-0 Yes 100mg Take 1 NPI:18 3 100 mg 3-03 capsule by [id number] capsule 00:00: mouth 2 00 (two) times daily. furosemide 202-0 Yes [id number] 20mg Take 1 N PI:183 20 mg 3-03 tablet by [id number] tablet 00:00: mouth 00 every morning. gabapentin 2022-0 Yes 600mg Take 2 NPI: 183 300 mg 3-03 capsules [id number] capsule 00:00: by mouth 3 00 (three) times daily. HYDROcodone 2021-0 Yes 1{tbl} Take 1 INSTRUMENT PERSON I:183 -acetaminop 3-03 tablet by 131 8781 hen (NORCO) 00:00: mouth 4 7.5-325 mg 00 (four) per tablet times daily. multivitami 2022-0 Yes 1{tbl} Take 1 INSTRUMENT PERSON I:183 n with 3-03 tablet by [id number] minerals 00:00: mouth (MULTIPLE 00 daily. VITAMIN-MIN ERALS) tablet nystatin 2021-0 Yes [id number] Apply NPI:1 83 100,000 3-03 /[oz_av 100,000 682154 1 unit/gram 00:00: ] Units/oz powder 00 to area(s) 2 (two) times daily. Apply under breast and abdomen folds topically for yeast related to candidiasi s polyethylen 2022-0 Yes 17g Take 17 g N PI:183 e glycol 3-03 by mouth [id number] 9334 00:00: as needed (MIRALAX) 00 for 17 Constipati gram/dose on. Mix in powder 4-6 oz of water simvastatin 2-0 Yes 40mg Take 1 NPI: 183 40 mg 3-03 tablet by [id number] tablet 00:00: mouth at 00 bedtime. vitamin C 2022-0 Yes 100mg Take 1 NPI:1 83 (VITAMIN C) 3-03 tablet by 131 [id number] 100 mg 00:00: mouth tablet 00 daily. ferrous 2022-0 Yes 325mg Take 1 NPI:183 sulfate 325 3-03 tablet by 131 [id number] mg (65 mg 00:00: mouth iron) 00 daily. tablet acetaminoph 2022-0 Yes 650mg Take 2 NPI :183 en 3-03 tablets by [id number] (TYLENOL) 00:00: mouth 325 mg 00 every 4 tablet (four) hours as needed for Temp > 38.5 C. ALPRAZolam 2022-0 Yes .5mg Take 1 NPI:1 83 0.5 mg 3-03 tablet by [id number] tablet 00:00: mouth 3 00 (three) times daily. bumetanide 2022-0 Yes 2mg Take 1 NPI:1 83 2 mg tablet 3-03 tablet by 131 [id number] 00:00: mouth 00 every morning and evening. carvediloL 2022-0 Yes 25mg Take 1 NPI:1 83 25 mg 3-03 tablet by [id number] tablet 00:00: mouth 2 00 (two) times daily with meals. cloNIDine 2022-0 Yes .2mg Take 1 NPI:18 3 0.2 mg 3-03 tablet by [id number] tablet 00:00: mouth 00 every 8 (eight) hours as needed (HTN crisis). docusate 2022-0 Yes 100mg Take 1 NPI:18 3 100 mg 3-03 capsule by [id number] capsule 00:00: mouth 2 00 (two) times daily. furosemide 2022-0 Yes [id number] 20mg Take 1 N PI:183 20 mg 3-03 tablet by [id number] tablet 00:00: mouth 00 every morning. gabapentin 0 Yes 600mg Take 2 NPI: 183 300 mg 3-03 capsules [id number] capsule 00:00: by mouth 3 00 (three) times daily. HYDROcodone 0 Yes 1{tbl} Take 1 INSTRUMENT PERSON I:183 -acetaminop 3-03 tablet by 131 8781 hen (NORCO) 00:00: mouth 4 7.5-325 mg 00 (four) per tablet times daily. multivitami 0 Yes 1{tbl} Take 1 INSTRUMENT PERSON I:183 n with 3-03 tablet by [id number] minerals 00:00: mouth (MULTIPLE 00 daily. VITAMIN-MIN ERALS) tablet nystatin Yes [id number] Apply NPI:1 83 100,000 3-03 /[oz_av 100,000 649225 1 unit/gram 00:00: ] Units/oz powder 00 to area(s) 2 (two) times daily. Apply under breast and abdomen folds topically for yeast related to candidiasi s polyethylen 0 Yes 17g Take 17 g N PI:183 e glycol 3-03 by mouth [id number] 5800 00:00: as needed (MIRALAX) 00 for 17 Constipati gram/dose on. Mix in powder 4-6 oz of water simvastatin 0 Yes 40mg Take 1 NPI: 183 40 mg 3-03 tablet by [id number] tablet 00:00: mouth at 00 bedtime. vitamin C 2021-0 Yes 100mg Take 1 NPI:1 83 (VITAMIN C) 3-03 tablet by 131 [id number] 100 mg 00:00: mouth tablet 00 daily. ferrous 0 Yes 325mg Take 1 NPI:183 sulfate 325 3-03 tablet by 131 8781 mg (65 mg 00:00: mouth iron) 00 daily. tablet carvediloL 2021-0 2021- No 12.5mg 12.5 mg, NPI:183 (COREG) 3-02 -02 Oral, BID [id number] 1 tablet 12.5 23:00: 22:38 MEALS, 1 mg 00 :00 dose, First dose (after last modificati on) on Wed06/11/21 at 1700, Routine docusate 2022-0 Yes 100mg 100 mg, NPI:1 83 (COLACE) -02 Oral, BID, 12572 81 capsule 100 15:15: First dose mg 00 on Wed06/11/21 at 0915, Until Discontinu ed, Routine furosemide 2022- No 40mg 40 mg, NPI: 183 (LASIX) 06-10-03 Slow IV [id number] injection 15:00: 14:51 Push, 40 mg 00 :03 QAM+PM, First dose (after last modificati on) on Wed06/10/21 at 0900, Until Discontinu ed, Routine nystatin Yes Topical, NPI:1 83 (NYSTOP) 06-10 BID, First 13880 81 powder 02:00: dose on Wed06/09/21 at 2000, Until Discontinu ed, Routine amLODIPine 2021- No 10mg 10 mg, NPI: 183 (NORVASC) 06-08 Oral, [id number] tablet 10 20:00: 14:28 DAILY, mg 00 :42 First dose on Wed06/08/21 at 1400, Until Discontinu ed, Routine simvastatin Yes 40mg 40 mg, NPI: 183 (ZOCOR) 06-08 Oral, QHS, [id number] 1 tablet 40 03:00: First dose mg 00 on 06/07/21 at 2100, Until Discontinu ed, Routine DULoxetine 2021- No 30mg 30 mg, NPI: 183 (CYMBALTA) 06-07-03 Oral, QPM, 13 [id number] capsule 30 23:00: 00:03 First dose mg 00 :40 on 06/07/21 at 1700, Until Discontinu ed, Routine enoxaparin Yes 40mg 40 mg, NPI:1 83 (LOVENOX) 06-07 Subcutaneo [id number] injection 15:00: us, DAILY, 40 mg 00 First dose on 06/07/21 at 0900, Until Discontinu ed, Routine furosemide 2021- No 40mg 40 mg, NPI: 183 (LASIX) 06-07 Slow IV [id number] injection 15:00: 13:50 Push, 40 mg 00 :25 DAILY, First dose on 06/07/21 at 0900, Until Discontinu ed, Routine gabapentin Yes 600mg 600 mg, NPI :183 (NEURONTIN) 06-07 Oral, TID, 13 [id number] capsule 600 14:00: First dose mg 00 on 06/07/21 at 0800, Until Discontinu ed, Routine ferrous 2021- No 325mg 325 mg, NPI:1 83 sulfate 06-07 Oral, TID [id number] 1 tablet 325 14:00: 14:51 MEALS, mg 00 :04 First dose on 06/07/21 at 0800, Until Discontinu ed, Routine carvediloL 2021- No 12.5mg 12.5 mg, NPI:183 (COREG) 06-07 Oral, BID [id number] 1 tablet 12.5 14:00: 14:49 MEALS, mg 00 :12 First dose on 06/07/21 at 0800, Until Discontinu ed, Routine hydrALAZINE 2021- No 25mg 25 mg, NPI :183 (APRESOLINE 06-07 Oral, [id number] 1 ) tablet 25 14:00: 15:30 Q12H, mg 00 :38 First dose on 06/07/21 at 0800, Until Discontinu ed, Routine polyethylen Yes 17g 17 g, NPI:1 83 e glycol 06-07 Oral, [id number] 5481 powder 10:19: [id number], 17 g 44 Starting on 06/07/21 at 0419, Until Discontinu ed, Constipati on cloNIDine Yes .2mg 0.2 mg, NPI:1 83 (CATAPRES) 06-07 Oral, [id number] tablet 0.2 10:18: Q8HPRN, mg 25 Starting on 06/07/21 at 0418, Until Discontinu ed, Routine, HTN crisis ipratropium Yes 3mL 3 mL, NPI:1 83 -albuteroL 06-07 Inhalation 131 8781 (DUONEB) 10:14: , QIDPRN, 0.5 mg-3 52 Starting mg(2.5 mg on Sat base)/3 mL 06/07/21 at nebulizer 0414, solution 3 Until mL Discontinu ed, Routine, Wheezing, Shortness of Breath, Chest tightness hydralAZINE 2021-0 Yes 10mg 10 mg, NPI: 183 ([place] [address] 81 ) injection 00:50: Push, 10 mg 04 Q6HPRN, Starting on Wed06/06/21 at 1850, Until Discontinu ed, Routine, DBP=>10 0; SBP=>160, For SBP > 160
Ind ication: Hypertensi ve Emergency HYDROcodone 2021-0 Yes 1{tbl} 1 tablet, NPI:183 -acetaminop 06-07 Oral, [id number] hen (NORCO) 00:49: Q6HPRN, 10-325 mg 22 Starting tablet 1 on Wed tablet 06/06/21 at 1849, Until Discontinu ed, Routine, Pain (scale 7-10) ALPRAZolam 0 Yes .5mg 0.5 mg, NPI: 183 (XANAX) 06-07 Oral, [id number] tablet 0.5 00:47: TIDPRN, mg 43 Starting on Wed06/06/21 at 1847, Until Discontinu ed, Routine, anxiety acetaminoph 0 Yes 650mg 650 mg, INSTRUMENT PERSON I:183 en 06-07 Oral, [id number] (TYLENOL) 00:47: Q6HPRN, tablet 650 00 Starting mg on Wed06/06/21 at 1847, Until Discontinu ed, Routine, Pain (scale 1-3) furosemide 2021-0 202- No 40mg 40 mg, IV N PI:183 (LASIX) 06-06 Push, [id number] injection 17:45: 16:35 ONCE, 1 40 mg 00 :00 dose, On Wed06/06/21 at 1145, BHUMI nitroglycer 2021-0 202- No 1[in_us 1 Inch, NPI:183 in (NITROL) 06-06 ] Transderma 1 [id number] 2 % 17:30: 16:32 l (Apply ointment 1 00 :00 To Skin), Inch ONCE, 1 dose, On Wed06/06/21 at 1130, BHUMI nystatin 2021-0 Yes [id number] Apply NPI:1 83 100,000 2-07 /[oz_av 100,000 780199 1 unit/gram 15:51: ] Units/oz powder 56 to area(s) 2 (two) times daily. Apply under breast and abdomen folds topically for yeast related to candidiasi s furosemide Yes [id number] 20mg Take 1 N PI:183 20 mg 1-18 tablet by [id number] tablet 00:00: mouth 00 every morning. furosemide 2021- No [id number] 20mg Take 1 NPI:183 20 mg 1-18 03-03 tablet by [id number] tablet 00:00: 00:00 mouth 00 :00 every morning. hydrALAZINE 2020-04 Yes 25mg Take 25 mg NPI:183 25 mg 1-11 by mouth [id number] tablet 16:37: every 12 08 (twelve) hours. multivitami 2020-04 Yes 1{tbl} Take 1 INSTRUMENT PERSON I:183 n with 1-11 tablet by [id number] minerals 16:37: mouth (MULTIPLE 08 daily. VITAMIN-MIN ERALS) tablet gabapentin 2020-04 Yes 600mg Take 600 INSTRUMENT PERSON I:183 300 mg 1-11 mg by [id number] capsule 16:37: mouth 3 08 (three) times daily. HYDROcodone 2020-04 Yes 1{tbl} Take 1 INSTRUMENT PERSON I:183 -acetaminop 1-11 tablet by 131 8781 hen (NORCO) 16:37: mouth 4 7.5-325 mg 08 (four) per tablet times daily. HYDROmorpho 2020-04 Yes 2mg Take 2 mg N PI:183 ne 1-11 by mouth [id number] (DILAUDID) 16:37: every 6 2 mg tablet 08 (six) hours as needed. ALPRAZolam 2020-04 Yes .5mg Take 0.5 NPI :183 0.5 mg 1-11 mg by [id number] tablet 16:37: mouth 3 08 (three) times daily. simvastatin 2020-04 Yes 40mg Take 40 mg NPI:183 20 mg 1-11 by mouth [id number] tablet 16:37: at 08 bedtime. DULoxetine 2020-04 Yes 30mg Take 30 mg N PI:183 30 mg 1-11 by mouth [id number] capsule 16:37: every 08 evening. carvediloL 2020-04 Yes 12.5mg Take 12.5 NPI:183 12.5 mg 1-11 mg by [id number] tablet 16:37: mouth 2 08 (two) times daily with meals. acetaminoph 2020-04 Yes 650mg Take 650 N PI:183 en 1-11 mg by [id number] (TYLENOL) 16:37: mouth 325 mg 08 every 4 tablet (four) hours as needed for Temp > 38.5 C. polyethylen 2020-04 Yes 17g Take 17 g N PI:183 e glycol 1-11 by mouth [id number] 9412 16:37: as needed (MIRALAX) 08 for 17 Constipati gram/dose on. Mix in powder 4-6 oz of water cloNIDine 2020-04 Yes .2mg Take 0.2 NPI: 183 0.2 mg 1-11 mg by [id number] tablet 16:37: mouth 08 every 8 (eight) hours as needed (HTN crisis). BP SBP>170 Immunizations Ordered Immunization Filled Immunization Date Status Commen Source Name Name PPD (TB) 2021-02-04 Completed 00:00:00 PPD (TB) 2021-02-04 Completed 00:00:00 SARS-COV-2 COVID-19 2020-07-10 Completed NPI:1 [id number] PFIZER VACCINE 00:00:00 SARS-COV-2 COVID-19 2020-07-10 Completed NPI:1 [id number] PFIZER VACCINE 00:00:00 SARS-COV-2 COVID-19 2020-06-12 Completed NPI:1 [id number] PFIZER VACCINE 00:00:00 SARS-COV-2 COVID-19 2020-06-12 Completed NPI:1 [id number] PFIZER VACCINE 00:00:00 Influenza High Dose 2020-01-07 Completed NPI:1 [id number] 00:00:00 Influenza High Dose 2020-01-07 Completed NPI:1 [id number] 00:00:00 Influenza High Dose 2020-01-07 Completed NPI:1 [id number] 00:00:00 Vital Signs Vital Name Observation Time Observation Value Comments Source Systolic blood 2021-06-12 21:47:00 107 mm[Hg] NPI:18 [id number] pressure 1 Diastolic blood 2021-06-12 21:47:00 68 mm[Hg] NPI:1 [id number] pressure 1 Heart rate 2021-06-12 21:47:00 62 /min NPI:183 [id number] 1 Body temperature 2021-06-12 21:47:00 36 Mari NPI: [id number] 1 Respiratory rate 2021-06-12 21:47:00 16 /min NPI: [id number] 1 Oxygen saturation 2021-06-12 21:47:00 96 /min NPI :[id number] in Arterial blood 1 by Pulse oximetry Body weight 2021-06-11 09:36:00 81.602 kg NPI:183 07241 1 BMI 2021-06-11 09:36:00 35.13 kg/m2 NPI:183 39079 1 Body height 2021-06-08 18:59:00 152.4 cm NPI:1831 23293 1 Systolic blood 2021-05-19 21:47:00 185 mm[Hg] pt unsure she NPI:1 [id number] pressure got her meds a 1 cyprses [place] Diastolic blood 2021-05-19 21:47:00 75 mm[Hg] pt unsure she NPI: [id number] pressure got her meds a 1 cyprses [place] Heart rate 2021-05-19 21:47:00 81 /min NPI:1831 00805 1 Body temperature 2021-05-19 21:47:00 36 Mari NPI: [id number] 1 Body height 2021-05-19 21:47:00 152.4 cm NPI:183 63555 1 Body weight 2021-05-19 21:47:00 95.255 kg NPI:183 48876 1 BMI 2021-05-19 21:47:00 41.01 kg/m2 NPI:183 17487 1 Procedures Procedure Date / Time Performed Performing Clinician Sushant BECK (ID NOW RAPID 2021-06-12 21:23:00 Braeden Hollis NPI :[id number] TESTING) BASIC METABOLIC PANEL (NA, 2021-06-12 12:15:00 Braeden Hollis K, CL, CO2, GLUCOSE, BUN, CREATININE, CA) CBC WITH DIFF 2021-06-12 12:15:00 Braeden Hollis NPI:[id number] N-TERMINAL PRO-BNP 2021-06-12 12:15:00 Braeden Hollis NPI:[id number] POCT GLUCOSE (AUTOMATED) 2021-06-11 17:48:00 Timmy Buenrostro NPI :[id number] PHOSPHORUS 2021-06-11 11:12:00 Aditya Acharya NPI:[id number] MAGNESIUM 2021-06-11 11:12:00 Aditya Acharya NPI:[id number] BASIC METABOLIC PANEL (NA, 2021-06-11 11:12:00 Braeden Hollis K, CL, CO2, GLUCOSE, BUN, CREATININE, CA) CBC WITH DIFF 2021-06-11 11:12:00 Braeden Hollis NPI:[id number] GLYCOSYLATED HEMOGLOBIN 2021-06-11 11:12:00 Braeden Hollis INSTRUMENT PERSON I:[id number] (A1C) N-TERMINAL PRO-BNP 2021-06-11 11:12:00 Braeden Hollis NPI:[id number] POCT GLUCOSE (AUTOMATED) 2021-06-11 02:10:00 Timmy Buenrostro NPI :[id number] POCT GLUCOSE (AUTOMATED) 2021-06-10 22:52:00 Timmy Buenrostro NPI :[id number] POCT GLUCOSE (AUTOMATED) 2021-06-10 17:48:00 Timmy Buenrostro NPI :[id number] HB ECG ROUTINE & RHYTHM 2021-06-10 15:56:12 Terri Razo STRIP POCT GLUCOSE (AUTOMATED) 2021-06-10 13:59:00 Timmy Buenrostro NPI :[id number] CBC WITH DIFF 2021-06-10 13:54:00 Braeden Hollis NPI:[id number] BASIC METABOLIC PANEL (NA, 2021-06-10 11:59:00 Braeden Hollis K, CL, CO2, GLUCOSE, BUN, CREATININE, CA) LIPID PANEL ([id number])(TOTAL 2021-06-10 11:59:00 Terri Razo CHOLESTEROL, TRIGLYCERIDES, HDL) N-TERMINAL PRO-BNP 2021-06-10 11:59:00 Terri Razo NPI:1 [id number] MISCELLANEOUS CULTURE 2021-06-09 23:46:00 Braeden Hollis GLUCOSE 2021-06-09 18:55:00 Timmy Buenrostro NPI:[id number] PROTEIN TOTAL 2021-06-09 18:55:00 Timmy Buenrostro NPI:[id number] LACTATE DEHYDROGENASE 2021-06-09 18:55:00 Timmy Buenrostro NPI:18 [id number] BASIC METABOLIC PANEL (NA, 2021-06-09 10:54:00 Daniella Benavides K, CL, CO2, GLUCOSE, BUN, CREATININE, CA) CBC WITH DIFF 2021-06-09 10:54:00 Daniella Benavides NPI:[id number] XR CHEST 1 VW 2021-06-09 01:18:34 Timmy Buenrostro NPI:[id number] TRANSTHORACIC ECHO (TTE) 2021-06-08 18:58:57 Concetta Connolly NPI :[id number] COMPLETE VITAMIN B12, LEVEL 2021-06-08 10:25:00 William Johnson NPI:[id number] FOLATE 2021-06-08 10:25:00 William Johnson NPI:[id number] BASIC METABOLIC PANEL (NA, 2021-06-08 10:25:00 Daniella Benavides K, CL, CO2, GLUCOSE, BUN, CREATININE, CA) IRON PANEL 2021-06-08 10:25:00 William Johnson NPI:[id number] CBC WITH DIFF 2021-06-08 10:25:00 Daniella Benavides NPI:[id number] PROCALCITONIN 2021-06-08 10:25:00 Concetta Connolly NPI:[id number] 81 MAGNESIUM 2021-06-07 12:22:00 Timmy Buenrostro NPI:[id number] BASIC METABOLIC PANEL (NA, 2021-06-07 12:22:00 Timmy Buenrostro PI:[id number] K, CL, CO2, GLUCOSE, BUN, CREATININE, CA) CBC WITH DIFF 2021-06-07 12:21:00 Timmy Buenrostro NPI:[id number] MISCELLANEOUS CULTURE 2021-06-06 22:06:00 Benjamin Rivera NPI:[id number] AC PANEL 20 + LACTIC ACID 2021-06-06 19:53:00 Bello Riveraip INSTRUMENT PERSON I:[id number] ACUTE CARE ARTERIAL BLOOD 2021-06-06 19:33:00 Rivera, Benjamin INSTRUMENT PERSON I:[id number] GAS ACUTE CARE ARTERIAL BLOOD 2021-06-06 18:52:00 Rivera, Benjamin INSTRUMENT PERSON I:[id number] GAS XR CHEST 1 VW 2021-06-06 17:29:44 , Benjamin NPI:[id number] NOTICE OF PRIVACY PRACTICES 2021-06-06 17:09:39 Doctor Darling wasserman, No Name CONSENT/REFUSAL FOR 2021-06-06 17:09:18 Doctor Unassigned, No INSTRUMENT PERSON I:[id number] DIAGNOSIS AND TREATMENT Name CBC WITH DIFF 2021-06-06 17:02:00 Benjamin Rivera NPI:[id number] COVID-19 (ID NOW RAPID 2021-06-06 16:34:00 Benjamin Rivera NPI:1 [id number] TESTING) LAB ONLY COVID 2021-06-06 16:34:00 Benjamin Rivera NPI:[id number] INTERPRETATION TROPONIN I 2021-06-06 16:33:00 RiveraBenjamin NPI:[id number] COMP. METABOLIC PANEL 2021-06-06 16:33:00 Benjamin Rivera NPI:[id number] ([id number]) N-TERMINAL PRO-BNP 2021-06-06 16:33:00 Rivera Benjamin NPI:[id number] AC PANEL 20 + LACTIC ACID 2021-06-06 16:32:00 Benjamin Rivera INSTRUMENT PERSON I:[id number] EXTERNAL PROVIDER RECORDS 2021-06-06 06:01:00 Doctor Unassigned, No Name EMERGENCY DEPARTMENT 2021-06-06 06:01:00 Doctor Unassigned, No N PI:[id number] DOCUMENTS Name Encounters Start End Encounter Admission Attending Care Care Encounter Source Date/Time Date/Time Type Type Clinicians Facility Department ID 2021-06-13 2021-06-13 Transition NOEMI Alejandra [id number] NPI:183 00:00:00 00:00:00 of Care Aviva GARVINY 350.1.13.10 [id number] [place] 4.2.7.2.686 [id number] 2021-06-06 2021-06-12 Inpatient X SANJEEV [facility] COREEN [id number] NPI:183 10:14:00 16:00:00 TIMMY [id number] 1 2021-06-06 2021-06-12 [facility] Benjamin Rivera [facility] 1.2.840.1 [id number] NPI:183 10:14:00 16:00:00 Encounter Timmy Buen[place]ro 350.1.13.10 [id number] [place] 4.2.7.2.686 CRUCIBLE [id number] 2021-06-05 2021-06-05 Outpatient ANGELA [facility] [id number] NPI:183 08:30:00 08:30:00 MEMO [id number] 2021-05-19 2021-05-19 Office MYRTLE Montoya 1.2.840.114 [id number] NPI:183 15:30:00 16:00:00 [facility] 350.1.13.10 [id number] [facility] 4.2.7.2.686 [id number] 2021-05-19 2021-05-19 Outpatient Maude MONTOYA [facility] [id number] NPI:183 15:30:00 15:30:00 SHA [id number] 1 2021-01-28 2021-01-28 Outpatient [facility] [id number] [place] 00:00:00 00:00:[address] 2021-01-10 2021-01-17 Inpatient [facility] 064 [id number] [place] 00:00:00 00:00:00 LADAN [address] 2020-12-31 2020-12-31 Outpatient [facility] [id number] [place] 00:00:00 00:00:[address] 2020-12-11 2020-12-11 Outpatient [facility] [id number] [id number] [place] 00:00:00 00:00:[address] 2020-09-05 2020-09-05 Outpatient [facility] 001 [id number] [place] 00:00:00 00:00:[address] 2020-09-05 2020-09-05 Outpatient [facility] [id number] [id number] [place] 00:00:00 00:00:[address] 2020-09-05 2020-09-05 Outpatient [facility] 385 [id number] [place] 00:00:00 00:00:[address] 2020-09-05 2020-09-05 Outpatient [facility] 061 [id number] [place] 00:00:00 00:00:[address] 2020-08-14 2020-08-14 Outpatient [facility] [id number] [place] 00:00:00 00:00:[address] 2020-07-04 2020-07-04 Outpatient [facility] [id number] [id number] [place] 00:00:00 00:00:[address] 2020-07-04 2020-07-04 Outpatient [facility] [id number] [id number] [place] 00:00:00 00:00:[address] 2020-06-04 2020-06-04 Outpatient [facility] [id number] [place] 00:00:00 00:00:[address] 2019-11-24 2019-11-24 Outpatient ROSARIO [facility] [id number] [place] 00:00:00 00:00:00 WILFRED [address] 2019-11-22 2019-11-22 Outpatient MARLENE [facility] [id number] [place] 00:00:00 00:00:00 WILFRED [address] 2019-11-07 2019-11-07 Outpatient MARLENE [facility] [id number] [place] 00:00:00 00:00:00 WILFRED [address] 2019-11-07 2019-11-07 Outpatient MARLENE [facility] [id number] [place] 00:00:00 00:00:00 WILFRED [address] 2019-11-07 2019-11-07 Outpatient MARLENE [facility] [id number] [place] 00:00:00 00:00:00 WILFRED [address] 2019-06-09 2019-06-12 Inpatient [place], [place] [address] [id number] [place] 00:00:00 00:00:00 SRINIVASAN [address] 2019-05-28 2019-06-01 Inpatient DADA, [place] [id number] [place] 00:00:00 00:00:00 LUANN [address] 2019-02-24 2019-02-24 Outpatient MARLENE [facility] [id number] [place] 00:00:00 00:00:00 WILFRED [address] Results Test Description Test Time Test Comments Results Result Comments Source N-TERMINAL PRO-BNP 2021-06-12 14:17:01 Test Item Value Reference Range Interpretation Comme nts NT-proBNP (test code = 406 pg/mL See_Comment H [Aut omated message] The 2875834513) system which ge nerated this result tra nsmitted reference range : <=125. The reference r mara was not used to int erpret this result as ayesha l/abnormal. GRACE (test code = GRACE) Biotin has been reported to cause a negative bias, interpret results relative to patient's use of biotin. Lab Interpretation (test Abnormal code = 82020-8) NPI:[id number] METABOLIC PANEL (NA, K, CL, CO2, GLUCOSE, BUN, CREATININE, CA)2021-06-12 14:09:03 Test Item Value Reference Range Interpretation Comments NA (test code = 141 mmol/L 135-145 5898767231) K (test code = 4.1 mmol/L 3.5-5.0 0440793744) CL (test code = 98 mmol/L 98-108 7774869307) CO2 TOTAL (test code = 35 mmol/L 23-31 H 6183197662) AGAP (test code = 2-16 9134107775) BUN (test code = 37 mg/dL 7-23 H 0939685190) GLUCOSE (test code = 151 mg/dL 70-110 H 4347071216) CREATININE (test code = 1.02 mg/dL 0.50-1.04 5669066830) CALCIUM (test code = 8.5 mg/dL 8.6-10.6 L 1999066733) eGFR (test code = mL/min/1.73m2 0494563627) GRACE (test code = GRACE) Association of [...] tests). Lab Interpretation Abnormal (test code = 96590-0) NPI:[id number] WITH [id number] 13:28:37 Test Item Value Reference Range Interpretation [...] (test code = 56.9 fL 39.0-49.9 H 89198-8) RDW-CV (test code = 17.0 % 12.0-15.5 H 788-0) PLT (test code = See_Comment [Automated 777-3) message] The sy stem which generated this result transmitted reference range : 166 - 358 10*3/ ?L. The reference r mara was not used to interpret this result as normal/abnormal . MPV (test code = 11.9 fL 9.5-12.9 33966-8) NRBC/100 WBC (test See_Comment [Automat ed code = 4196625541) message] The system which generated this result transmitted reference range : 0.0 - 10.0 /100 WBCs. The refer ence range was not u sed to interpret th is result as normal/abnormal . NRBC x10^3 (test code <0.01 See_Comment [Auto mated = 7605355226) message] The s ystem which generated this result transmitted reference range : 10*3/?L. The reference range was not used to interpret this result as normal/abnormal . GRAN MAT (NEUT) % 53.8 % (test code = 770-8) IMM GRAN % (test code 0.10 % = 7985368864) LYMPH % (test code = 32.4 % 736-9) MONO % (test code = 8.1 % 5905-5) EOS % (test code = 4.9 % 713-8) BASO % (test code = 0.7 % 706-2) GRAN MAT x10^3(ANC) 3.92 10*3/uL 1.88-7.09 (test code = 4188895168) IMM GRAN x10^3 (test <0.03 0.00-0.06 code = 6143245221) LYMPH x10^3 (test code 2.36 10*3/uL 1.32-3.29 = 731-0) MONO x10^3 (test code 0.59 10*3/uL 0.33-0.92 = 742-7) EOS x10^3 (test code = 0.36 10*3/uL 0.03-0.39 711-2) BASO x10^3 (test code 0.05 10*3/uL 0.01-0.07 = 704-7) Lab Interpretation Abnormal (test code = 71545-4) NPI:[id number] B12, [id number] 20:53:29 Test Item Value Reference Range Interpretation Comments VIT B12 (test code = 309 pg/mL 240-930 7569488132) GRACE (test code = GRACE) Biotin has been reported to cause a positive bias, interpret results relative to patient's use of biotin. Lab Interpretation (test Normal code = 06154-4) NPI:[id number] HEMOGLOBIN (A1C)2021-06-11 18:26:31 Test Item Value Reference Range Interpretation Comments HGB A1C (test code = 5.2 % 4.0-5.7 4548-4) GRACE (test code = GRACE) Reference RangesNormal: <5.7%Prediabetes: 5.7 - 6.4%Diabetes: > 6.5% Lab Interpretation (test Normal code = 68586-3) NPI:[id number] GLUCOSE (AUTOMATED)2021-06-11 18:06:22 Test Item Value Reference Range Interpretation Comments POCT GLU (test code = 5298776424) 100 mg/dL 70-110 Lab Interpretation (test code = Normal 01299-7) NPI:[id number] 17:41:06 Test Item Value Reference Range Interpretation Comments FOLATE SER (test code = 0056229687) 6.4 ng/mL 3.0-20.0 Lab Interpretation (test code = Normal 58117-1) NPI:[id number] [id number] 16:42:15 Test Item Value Reference Range Interpretation Comments IRON (test code = 9991290615) 40 ug/dL 50-160 L TIBC (test code = 9158493010) 314 ug/dL 250-410 % FE SAT (test code = 7658853127) 13 % 20-50 L Lab Interpretation (test code = Abnormal 70927-4) NPI:[id number] METABOLIC PANEL (NA, K, CL, CO2, GLUCOSE, BUN, CREATININE, CA)2021-06-11 12:12:21 Test Item Value Reference Range Interpretation Comments NA (test code = 143 mmol/L 135-145 6832970848) K (test code = 3.9 mmol/L 3.5-5.0 8971993628) CL (test code = 100 mmol/L 98-108 1117776569) CO2 TOTAL (test code = 36 mmol/L 23-31 H 1969685750) AGAP (test code = 2-16 7665086679) BUN (test code = 34 mg/dL 7-23 H 6003007193) GLUCOSE (test code = 89 mg/dL 70-110 0145211296) CREATININE (test code = 1.25 mg/dL 0.50-1.04 H 1162458668) CALCIUM (test code = 8.2 mg/dL 8.6-10.6 L 9738044623) eGFR (test code = mL/min/1.73m2 5452916758) GRACE (test code = GRACE) Association of [...] tests). Lab Interpretation Abnormal (test code = 23452-8) NPI:[id number] [id number] 12:12:01 Test Item Value Reference Range Interpretation Comments NT-proBNP (test code 703 pg/mL See_Comment H [Autom ated = 3917837407) message] The system which generated this result transmitted reference range : <=125. The reference range was not used to interpret this result as normal/abnormal . GRACE (test code = GRACE) Biotin has been reported to cause a negative bias, interpret results relative to patient's use of biotin. Lab Interpretation Abnormal (test code = 25417-8) NPI:[id number] 12:05:57 Test Item Value Reference Range Interpretation Comments MAGNESIUM (test code = 5198142163) 1.9 mg/dL 1.7-2.4 Lab Interpretation (test code = Normal 67021-6) NPI:[id number] 12:05:40 Test Item Value Reference Range Interpretation Comments PHOSPHORUS (test code = 7477988413) 4.4 mg/dL 2.5-5.0 Lab Interpretation (test code = Normal 95911-2) NPI:[id number] WITH [id number] 11:43:55 Test Item Value Reference Range Interpretation [...] (test code = 57.6 fL 39.0-49.9 H 15413-7) RDW-CV (test code = 17.0 % 12.0-15.5 H 788-0) PLT (test code = See_Comment [Automated 777-3) message] The sy stem which generated this result transmitted reference range : 166 - 358 10*3/ ?L. The reference r mara was not used to interpret this result as normal/abnormal . MPV (test code = 11.2 fL 9.5-12.9 94532-4) NRBC/100 WBC (test See_Comment [Automat ed code = 2915987830) message] The system which generated this result transmitted reference range : 0.0 - 10.0 /100 WBCs. The refer ence range was not u sed to interpret th is result as normal/abnormal . NRBC x10^3 (test code <0.01 See_Comment [Auto mated = 3070220400) message] The s ystem which generated this result transmitted reference range : 10*3/?L. The reference range was not used to interpret this result as normal/abnormal . GRAN MAT (NEUT) % 51.0 % (test code = 770-8) IMM GRAN % (test code 0.30 % = 8748506545) LYMPH % (test code = 34.5 % 736-9) MONO % (test code = 10.3 % 5905-5) EOS % (test code = 3.6 % 713-8) BASO % (test code = 0.3 % 706-2) GRAN MAT x10^3(ANC) 4.93 10*3/uL 1.88-7.09 (test code = 8916845834) IMM GRAN x10^3 (test 0.03 10*3/uL 0.00-0.06 code = 8358316962) LYMPH x10^3 (test code 3.34 10*3/uL 1.32-3.29 H = 731-0) MONO x10^3 (test code 1.00 10*3/uL 0.33-0.92 H = 742-7) EOS x10^3 (test code = 0.35 10*3/uL 0.03-0.39 711-2) BASO x10^3 (test code 0.03 10*3/uL 0.01-0.07 = 704-7) Lab Interpretation Abnormal (test code = 46529-8) NPI:[id number] GLUCOSE (AUTOMATED)2021-06-11 11:12:24 Test Item Value Reference Range Interpretation Comments POCT GLU (test code = 0817593901) 108 mg/dL 70-110 Lab Interpretation (test code = Normal 70958-4) NPI:[id number] GLUCOSE (AUTOMATED)2021-06-11 02:42:55 Test Item Value Reference Range Interpretation Comments POCT GLU (test code = 1311415072) 178 mg/dL 70-110 H Lab Interpretation (test code = Abnormal 37338-0) NPI:[id number] GLUCOSE (AUTOMATED)2021-06-10 23:20:52 Test Item Value Reference Range Interpretation Comments POCT GLU (test code = 8917118425) 120 mg/dL 70-110 H Lab Interpretation (test code = Abnormal 08885-8) NPI:[id number] GLUCOSE (AUTOMATED)2021-06-10 18:06:15 Test Item Value Reference Range Interpretation Comments POCT GLU (test code = 4437917384) 92 mg/dL 70-110 Lab Interpretation (test code = Normal 18823-2) NPI:[id number] WITH [id number] 14:57:57 Test Item Value Reference Range Interpretation [...] (test code = 57.7 fL 39.0-49.9 H 67772-3) RDW-CV (test code = 17.0 % 12.0-15.5 H 788-0) PLT (test code = See_Comment [Automated 777-3) message] The sy stem which generated this result transmitted reference range : 166 - 358 10*3/ ?L. The reference r mara was not used to interpret this result as normal/abnormal . MPV (test code = 11.0 fL 9.5-12.9 65908-8) NRBC/100 WBC (test See_Comment [Automat ed code = 7251829209) message] The system which generated this result transmitted reference range : 0.0 - 10.0 /100 WBCs. The refer ence range was not u sed to interpret th is result as normal/abnormal . NRBC x10^3 (test code <0.01 See_Comment [Auto mated = 0747582156) message] The s ystem which generated this result transmitted reference range : 10*3/?L. The reference range was not used to interpret this result as normal/abnormal . GRAN MAT (NEUT) % 51.8 % (test code = 688-8) IMM GRAN % (test code 0.40 % = 2512663321) LYMPH % (test code = 33.5 % 736-9) MONO % (test code = 10.2 % 5905-5) EOS % (test code = 3.7 % 713-8) BASO % (test code = 0.4 % 706-2) GRAN MAT x10^3(ANC) 6.38 10*3/uL 1.88-7.09 (test code = 3341618152) IMM GRAN x10^3 (test 0.05 10*3/uL 0.00-0.06 code = 3897182132) LYMPH x10^3 (test code 4.12 10*3/uL 1.32-3.29 H = 731-0) MONO x10^3 (test code 1.25 10*3/uL 0.33-0.92 H = 742-7) EOS x10^3 (test code = 0.45 10*3/uL 0.03-0.39 H 711-2) BASO x10^3 (test code 0.05 10*3/uL 0.01-0.07 = 704-7) BASO STIPPLING (test Present A code = 703-9) REACT LYMPHS (test Rare code = 1271571279) Lab Interpretation Abnormal (test code = 34237-5) NPI:[id number] [id number]-[id number] 13:13:32 Test Item Value Reference Range Interpretation Comments NT-proBNP (test code 1310 pg/mL See_Comment H [Autom ated = 0584949569) message] The system which generated this result transmitted reference range : <=125. The reference range was not used to interpret this result as normal/abnormal . GRACE (test code = GRACE) Biotin has been reported to cause a negative bias, interpret results relative to patient's use of biotin. Lab Interpretation Abnormal (test code = 22609-7) NPI:[id number] PANEL (40710)(TOTAL CHOLESTEROL, TRIGLYCERIDES, HDL) 2021-06-10 13:05:49 Test Item Value Reference Range Interpretation Comments CHOL (test code = 180 mg/dL 120-200 9031879727) HDL (test code = 38 mg/dL >50 L 3754738998) HDLC RATIO (test code = See_Comment H [Au tomated message] 9615493091) The system [employer] generated this result transmit masoud reference range : <=4.5. The refe rence range was not u sed to interpret th is result as normal/abnormal . TRIG (test code = 88 mg/dL 30-170 7842355722) LDL CHOL (test code = 124 mg/dL See_Comment [Auto mated message] 00813-6) The system [employer] generated this result transmit masoud reference range : <=160. The refe rence range was not u sed to interpret th is result as normal/abnormal . VLDL (test code = 18 mg/dL 5-60 5507981700) Lab Interpretation (test Abnormal code = 18351-1) NPI:[id number] METABOLIC PANEL (NA, K, CL, CO2, GLUCOSE, BUN, CREATININE, CA)2021-06-10 13:05:49 Test Item Value Reference Range Interpretation Comments NA (test code = 142 mmol/L 135-145 1495142603) K (test code = 4.2 mmol/L 3.5-5.0 8677201422) CL (test code = 100 mmol/L 98-108 4795920861) CO2 TOTAL (test code = 36 mmol/L 23-31 H 1933842338) AGAP (test code = 2-16 6821938056) BUN (test code = 29 mg/dL 7-23 H 5201031624) GLUCOSE (test code = 82 mg/dL 70-110 6065363894) CREATININE (test code = 0.97 mg/dL 0.50-1.04 5458199414) CALCIUM (test code = 8.4 mg/dL 8.6-10.6 L 7625702291) eGFR (test code = mL/min/1.73m2 3932499296) GRACE (test code = GRACE) Association of [...] tests). Lab Interpretation Abnormal (test code = 46394-6) NPI:[id number], Cyzia7078-65-90 19:32:21 Test Item Value Reference Range Interpretation Comments GLUCOSE (test code = 1983269737) 133 mg/dL 70-110 H Lab Interpretation (test code = Abnormal 79593-9) NPI:[id number] Total [id number] 19:32:21 Test Item Value Reference Range Interpretation Comments T PROTEIN (test code = 3585407611) 7.0 g/dL 6.3-8.2 Lab Interpretation (test code = Normal 63074-9) NPI:[id number] RGQSKVTFNNPZF7161-12-58 19:32:21 Test Item Value Reference Range Interpretation Comments LDH (test code = 5653657517) 386 U/L 300-600 Lab Interpretation (test code = Normal 53747-1) NPI:[id number] METABOLIC PANEL (NA, K, CL, CO2, GLUCOSE, BUN, CREATININE, CA)2021-06-09 12:45:24 Test Item Value Reference Range Interpretation Comments NA (test code = 141 mmol/L 135-145 0562776258) K (test code = 4.1 mmol/L 3.5-5.0 6322918837) CL (test code = 103 mmol/L 98-108 9845737076) CO2 TOTAL (test code = 34 mmol/L 23-31 H 7441097772) AGAP (test code = 2-16 9900974207) BUN (test code = 27 mg/dL 7-23 H 7283054059) GLUCOSE (test code = 73 mg/dL 70-110 7738380716) CREATININE (test code = 0.97 mg/dL 0.50-1.04 2969606169) CALCIUM (test code = 8.1 mg/dL 8.6-10.6 L 1963814395) eGFR (test code = mL/min/1.73m2 0497037511) GRACE (test code = GRACE) Association of [...] tests). Lab Interpretation Abnormal (test code = 93462-8) NPI:[id number] WITH [id number] 12:25:41 Test Item Value Reference Range Interpretation [...] (test code = 58.1 fL 39.0-49.9 H 94929-8) RDW-CV (test code = 17.2 % 12.0-15.5 H 788-0) PLT (test code = See_Comment [Automated 777-3) message] The sy stem which generated this result transmitted reference range : 166 - 358 10*3/ ?L. The reference r mara was not used to interpret this result as normal/abnormal . MPV (test code = 12.0 fL 9.5-12.9 86032-8) NRBC/100 WBC (test See_Comment [Automat ed code = 9129590573) message] The system which generated this result transmitted reference range : 0.0 - 10.0 /100 WBCs. The refer ence range was not u sed to interpret th is result as normal/abnormal . NRBC x10^3 (test code <0.01 See_Comment [Auto mated = 5629377206) message] The s ystem which generated this result transmitted reference range : 10*3/?L. The reference range was not used to interpret this result as normal/abnormal . GRAN MAT (NEUT) % 58.9 % (test code = 770-8) IMM GRAN % (test code 0.40 % = 1903724755) LYMPH % (test code = 27.3 % 736-9) MONO % (test code = 9.5 % 5905-5) EOS % (test code = 3.6 % 713-8) BASO % (test code = 0.3 % 706-2) GRAN MAT x10^3(ANC) 5.79 10*3/uL 1.88-7.09 (test code = 8749893451) IMM GRAN x10^3 (test 0.04 10*3/uL 0.00-0.06 code = 5583997708) LYMPH x10^3 (test code 2.68 10*3/uL 1.32-3.29 = 731-0) MONO x10^3 (test code 0.93 10*3/uL 0.33-0.92 H = 742-7) EOS x10^3 (test code = 0.35 10*3/uL 0.03-0.39 711-2) BASO x10^3 (test code 0.03 10*3/uL 0.01-0.07 = 704-7) Lab Interpretation Abnormal (test code = 53349-3) NPI:[id number] echo (TTE)2021-06-08 20:49:41 Test Item Value Reference Range Interpretation Comments LVOT stroke volume (test 74.80 cm3 code = 6715172113) EF(Teich) (test code = 54.40 % 9516607951) LVIDD (test code = 5.90 cm 0020334491) LVIDS (test code = 4.20 cm 7515822042) IVS (test code = 1.08 cm 5385521872) LVPWD (test code = 1.13 cm 0896009811) LVOT diameter (test code 1.99 cm = 3435341754) FS (test code = 29 % 6036339064) MV Peak E Kaushal (test code 103.0 cm/s = 0286590990) MV Peak A Kaushal (test code 96.3 cm/s = 8871244547) E/A ratio (test code = ratio 4077558581) E wave decelartion time 0.20 s (test code = 9240558828) LVOT peak kaushal (test code 125.8 cm/s = 5556449093) LVOT mn grad (test code = mmHg 9138596213) LAV(MOD-sp2) (test code = 114.00 mL 5590578389) Aortic valve mean 116.4 cm/s velocity (test code = 5092294115) Ao peak kaushal (test code = 185.4 cm/s 7055679572) Ao VTI (test code = 34.4 cm 9638213133) AV LVOT peak gradient mmHg (test code = 7748714733) LVOT peak VTI (test code 24.1 cm = 0077714751) AV area by cont VTI (test 2.2 cm2 code = 3192382040) AV area peak kaushal (test 2.1 cm2 code = 8458498603) LV V1 mean (test code = 77.20 cm/s 9043736305) Ao max PG (test code = 13.80 mm[Hg] 4762237388) MV stenosis pressure 1/2 60.0 ms time (test code = 0858628536) MV dec slope (test code = 508.00 cm/s2 2380644808) MV Prop V (test code = 69.30 cm/s 9611917187) AV peak gradient (test mmHg code = 3732189193) AV valve area (test code 2.17 cm2 = 9763046960) AV mean gradient (test mmHg code = 7680258328) PW (test code = 1.13 cm 0.6-1.5 9095886157) EF - 2D (test code = 54.40 % 66069578) Interventricular Septum 1.08 cm Diastolic Thickness by 2D (test code = 2511240) Radiology Study observation (narrative) (test code = 69785-1) GRACE (test code = GRACE) ?Left?Ventricle: Left ventricle is mildly dilated. Moderately increased wall thickness. Low normal systolic function with a visually estimated EF of 50 - 55%. There is pseudonormal diastolic dysfunction. ?Tricuspid?Valve: Insufficient regurgant jet to estimate RVSP. ?IVC/SVC: IVC normal in size. VitalsHeight Weight BSA (Calculated - sq m) BP Pulse 5' (1.524 m) 191 lb (86.6 kg) 1.91 sq meters 135/70 80 NPI:[id number] 18:13:13 Test Item Value Reference Range Interpretation Comments Procalcitonin (test 0.28 ng/mL <0.07 H code = 0740747211) GRACE (test code = GRACE) INTERPRETATION OF [...] lung abscess/empyema. For further information please refer to:[email or web address] Lab Interpretation Abnormal (test code = 50691-9) NPI:[id number] METABOLIC PANEL (NA, K, CL, CO2, GLUCOSE, BUN, CREATININE, CA)2021-06-08 11:33:12 Test Item Value Reference Range Interpretation Comments NA (test code = 142 mmol/L 135-145 [id number]) K (test code = 3.6 mmol/L 3.5-5.0 5477930041) CL (test code = 101 mmol/L 98-108 8668522687) CO2 TOTAL (test code = 38 mmol/L 23-31 H 7002687659) AGAP (test code = 2-16 1141108404) BUN (test code = 25 mg/dL 7-23 H 5224700422) GLUCOSE (test code = 81 mg/dL 70-110 1137213275) CREATININE (test code = 1.11 mg/dL 0.50-1.04 H 3546856330) CALCIUM (test code = 8.4 mg/dL 8.6-10.6 L 0022519082) eGFR (test code = mL/min/1.73m2 7925456584) GRACE (test code = GRACE) Association of [...] tests). Lab Interpretation Abnormal (test code = 88744-8) NPI:[id number] 11:06:26 Test Item Value Reference Range Interpretation Comments WBC (test code = See_Comment [Automated 9890-2) message] The sy stem which generated this result transmitted reference range : 4.30 - 11.10 10*3/?L. The reference range was not used to interpret this result as normal/abnormal . RBC (test code = See_Comment L [Automated 539-8) message] The sy stem which generated this [...] (test code = 57.1 fL 39.0-49.9 H 04675-1) RDW-CV (test code = 17.0 % 12.0-15.5 H 788-0) PLT (test code = See_Comment [Automated 777-3) message] The sy stem which generated this result transmitted reference range : 166 - 358 10*3/ ?L. The reference r mara was not used to interpret this result as normal/abnormal . MPV (test code = 11.5 fL 9.5-12.9 08101-1) NRBC/100 WBC (test See_Comment [Automat ed code = [id number]) message] The system which generated this result transmitted reference range : 0.0 - 10.0 /100 WBCs. The refer ence range was not u sed to interpret th is result as normal/abnormal . NRBC x10^3 (test code <0.01 See_Comment [Auto mated = [id number]) message] The s ystem which generated this result transmitted reference range : 10*3/?L. The reference range was not used to interpret this result as normal/abnormal . GRAN MAT (NEUT) % 48.6 % (test code = 770-8) IMM GRAN % (test code 0.30 % = 3525273283) LYMPH % (test code = 38.1 % 736-9) MONO % (test code = 9.9 % 5905-5) EOS % (test code = 2.6 % 713-8) BASO % (test code = 0.5 % 706-2) GRAN MAT x10^3(ANC) 4.60 10*3/uL 1.88-7.09 (test code = 3302479076) IMM GRAN x10^3 (test 0.03 10*3/uL 0.00-0.06 code = 7141568729) LYMPH x10^3 (test code 3.62 10*3/uL 1.32-3.29 H = 731-0) MONO x10^3 (test code 0.94 10*3/uL 0.33-0.92 H = 742-7) EOS x10^3 (test code = 0.25 10*3/uL 0.03-0.39 711-2) BASO x10^3 (test code 0.05 10*3/uL 0.01-0.07 = 704-7) Lab Interpretation Abnormal (test code = 58612-3) NPI:[id number] [id number] 13:14:31 Test Item Value Reference Range Interpretation Comments MAGNESIUM (test code = 2363549399) 1.8 mg/dL 1.7-2.4 Lab Interpretation (test code = Normal 48723-4) NPI:[id number] Metabolic Panel (NA, K, CL, CO2, GLUCOSE, BUN, CREATININE, CA)2021-06-07 13:14:11 Test Item Value Reference Range Interpretation Comments NA (test code = 141 mmol/L 135-145 2978444597) K (test code = 4.3 mmol/L 3.5-5.0 0426027418) CL (test code = 103 mmol/L 98-108 5897397289) CO2 TOTAL (test code = 34 mmol/L 23-31 H 0322710737) AGAP (test code = 2-16 9571241543) BUN (test code = 19 mg/dL 7-23 7455320107) GLUCOSE (test code = 85 mg/dL 70-110 8017517292) CREATININE (test code = 0.84 mg/dL 0.50-1.04 9710776070) CALCIUM (test code = 8.5 mg/dL 8.6-10.6 L 8945283697) eGFR (test code = mL/min/1.73m2 8493410838) GRACE (test code = GRACE) Association of [...] tests). Lab Interpretation Abnormal (test code = 05177-6) NPI:[id number] with [id number] 12:41:51 Test Item Value Reference Range Interpretation [...] (test code = 59.5 fL 39.0-49.9 H 59236-6) RDW-CV (test code = 17.5 % 12.0-15.5 H 788-0) PLT (test code = See_Comment [Automated 777-3) message] The sy stem which generated this result transmitted reference range : 166 - 358 10*3/ ?L. The reference r mara was not used to interpret this result as normal/abnormal . MPV (test code = 11.8 fL 9.5-12.9 21404-5) NRBC/100 WBC (test See_Comment [Automat ed code = 5973789218) message] The system which generated this result transmitted reference range : 0.0 - 10.0 /100 WBCs. The refer ence range was not u sed to interpret th is result as normal/abnormal . NRBC x10^3 (test code <0.01 See_Comment [Auto mated = 1619904776) message] The s ystem which generated this result transmitted reference range : 10*3/?L. The reference range was not used to interpret this result as normal/abnormal . GRAN MAT (NEUT) % 65.4 % (test code = 770-8) IMM GRAN % (test code 0.40 % = 7174197678) LYMPH % (test code = 24.5 % 736-9) MONO % (test code = 8.1 % 5905-5) EOS % (test code = 1.1 % 713-8) BASO % (test code = 0.5 % 706-2) GRAN MAT x10^3(ANC) 6.41 10*3/uL 1.88-7.09 (test code = 3150359212) IMM GRAN x10^3 (test 0.04 10*3/uL 0.00-0.06 code = 0001622781) LYMPH x10^3 (test code 2.41 10*3/uL 1.32-3.29 = 731-0) MONO x10^3 (test code 0.80 10*3/uL 0.33-0.92 = 742-7) EOS x10^3 (test code = 0.11 10*3/uL 0.03-0.39 711-2) BASO x10^3 (test code 0.05 10*3/uL 0.01-0.07 = 704-7) Lab Interpretation Abnormal (test code = 55035-7) NPI:[id number] PANEL 20 + LACTIC [id number] 19:54:30 Test Item Value Reference Range Interpretation Comments PH (test code = 2) 7.35-7.45 PCO2 (test code = See_Comment H [Automat ed 7938715004) message] The sy stem which generated this result transmitted reference range : 35 - 45 mmHg. The reference range was not used to interpret this result as normal/abnormal . PO2 (test code = See_Comment L [Automated 8333247804) message] The sy stem which generated this result transmitted reference range : 80 - 100 mmHg. The reference range was not used to interpret this result as normal/abnormal . HCO3 (test code = See_Comment H [Automate d 0468712717) message] The sy stem which generated this result transmitted reference range : 22 - 26 mEq/L. The reference range was not used to interpret this result as normal/abnormal . BE (test code = See_Comment H [Automated 8321174469) message] The sy stem which generated this result transmitted reference range : -3.0 - 3.0 mEq/ L. The reference r mara was not used to interpret this result as normal/abnormal . THB (test code = 10.0 g/dL 12.0-16.0 L 4423959056) %O2HB (test code = 87.9 % 94.0-99.0 L 5734177206) %COHB ART (test code = 0.3 % 0.0-1.5 4021715802) %METHB ART (test code = 0.3 % 0.4-1.5 L 7422425754) VOL%O2 ART (test code = 12.4 % 15.0-23.0 L 1602026156) NA (test code = 142 mmol/L 135-145 7495101278) K+ (test code = 4.3 mmol/L 3.5-5.0 4907078578) AC CA IONZ (test code = 4.80 mg/dL 4.50-5.30 5939818999) GLUCOSE (test code = 92 mg/dL 70-110 4324491657) LACTIC ACID (test code 1.08 mmol/L 0.50-2.20 = 0670986512) Lab Interpretation Abnormal (test code = 27243-4) NPI:[id number] Arterial Blood Gas.2021-06-06 19:35:33 Test Item Value Reference Range Interpretation Comments PH (test code = 2) 7.35-7.45 PCO2 (test code = See_Comment H [Automat ed message] 8048480639) The system [employer] generated this result transmitted ref erence range: 35 - 45 mmHg. The reference r mara was not used to interpret this result as normal/abnor mal. PO2 (test code = See_Comment L [Automated message] 0714884543) The system [employer] generated this result transmitted ref erence range: 80 - 100 mmHg. The reference r mara was not used to interpret this result as normal/abnor mal. HCO3 (test code = See_Comment H [Automate d message] 8524423594) The system [employer] generated this result transmitted ref erence range: 22 - 26 mEq/L. The reference r mara was not used to interpret this result as normal/abnor mal. BE (test code = See_Comment H [Automated message] 4936658266) The system [employer] generated this result transmitted ref erence range: -3.0 - 3 .0 mEq/L. The refe rence range was not u sed to interpret this result as normal/abnor mal. Lab Interpretation (test Abnormal code = 15492-9) NPI:[id number] Arterial Blood Gas.2021-06-06 18:53:46 Test Item Value Reference Range Interpretation Comments PH (test code = 2) 7.35-7.45 L PCO2 (test code = See_Comment H [Automat ed message] 9351937873) The system [employer] generated this result transmitted ref erence range: 35 - 45 mmHg. The reference r mara was not used to interpret this result as normal/abnor mal. PO2 (test code = See_Comment L [Automated message] 3646477809) The system [employer] generated this result transmitted ref erence range: 80 - 100 mmHg. The reference r mara was not used to interpret this result as normal/abnor mal. HCO3 (test code = See_Comment H [Automate d message] 5666120716) The system [employer] generated this result transmitted ref erence range: 22 - 26 mEq/L. The reference r mara was not used to interpret this result as normal/abnor mal. BE (test code = See_Comment H [Automated message] 8746033461) The system [employer] generated this result transmitted ref erence range: -3.0 - 3 .0 mEq/L. The refe rence range was not u sed to interpret this result as normal/abnor mal. Lab Interpretation (test Abnormal code = 30780-3) NPI:[id number] [id number] 18:26:09 Test Item Value Reference Interpretation Comments Range TROPONIN I (test 0.014 ng/mL See_Comment [Automated code = 8198910563) message] The system which generated this result [...] biotin. Lab Interpretation Normal (test code = 45097-9) NPI:[id number] 18:23:07 Test Item Value Reference Range Interpretation Comments NT-proBNP (test code 855 pg/mL See_Comment H [Autom ated = 8304905692) message] The system which generated this result transmitted reference range : <=125. The reference range was not used to interpret this result as normal/abnormal . GRACE (test code = GRACE) Biotin has been reported to cause a negative bias, interpret results relative to patient's use of biotin. Lab Interpretation Abnormal (test code = 47442-0) NPI:[id number] WITH [id number] 17:13:56 Test Item Value Reference Range Interpretation Comments WBC (test code = See_Comment H [Automated 3827-2) message] The system which generated this result [...] (test code = 58.4 fL 39.0-49.9 H 96618-0) RDW-CV (test code = 17.3 % 12.0-15.5 H 788-0) PLT (test code = See_Comment [Automated 777-3) message] The system which generated this result transmit masoud reference range : 166 - 358 10*3/ ?L. The reference range was not u sed to interpret th is result as normal/abnormal . MPV (test code = 11.1 fL 9.5-12.9 09527-6) NRBC/100 WBC (test See_Comment [Automat ed code = 4751039521) message] The system which generated this result transmit masoud reference range : 0.0 - 10.0 /100 WBCs. The reference range was not used to interpret this result as normal/abnormal . NRBC x10^3 (test code <0.01 See_Comment [Auto mated = 7842352823) message] The system which generated this result transmit masoud reference range : 10*3/?L. The reference range was not used to interpret this result as normal/abnormal . GRAN MAT (NEUT) % 82.8 % (test code = 770-8) IMM GRAN % (test code 0.50 % = 1003912261) LYMPH % (test code = 10.1 % 736-9) MONO % (test code = 5.3 % 5905-5) EOS % (test code = 1.1 % 713-8) BASO % (test code = 0.2 % 706-2) GRAN MAT x10^3(ANC) 10.06 10*3/uL 1.88-7.09 H (test code = 9509384793) IMM GRAN x10^3 (test 0.06 10*3/uL 0.00-0.06 code = 6247100141) LYMPH x10^3 (test code 1.23 10*3/uL 1.32-3.29 L = 731-0) MONO x10^3 (test code 0.65 10*3/uL 0.33-0.92 = 742-7) EOS x10^3 (test code = 0.13 10*3/uL 0.03-0.39 711-2) BASO x10^3 (test code 0.03 10*3/uL 0.01-0.07 = 704-7) Lab Interpretation Abnormal (test code = 89804-3) NPI:[id number]. METABOLIC PANEL (67680)2021-06-06 17:08:36 Test Item Value Reference Range Interpretation Comments NA (test code = 144 mmol/L 135-145 5859172480) K (test code = 4.6 mmol/L 3.5-5.0 7844756373) CL (test code = 106 mmol/L 98-108 1460523569) CO2 TOTAL (test code = 30 mmol/L 23-31 8182487627) AGAP (test code = 2-16 5586227229) BUN (test code = 18 mg/dL 7-23 4064736855) GLUCOSE (test code = 193 mg/dL 70-110 H 7817794744) CREATININE (test code = 0.91 mg/dL 0.50-1.04 9043014870) TOTAL BILI (test code = 0.5 mg/dL 0.1-1.0 2131113084) CALCIUM (test code = 8.9 mg/dL 8.6-10.6 7427072190) T PROTEIN (test code = 7.1 g/dL 6.3-8.2 0340584366) ALBUMIN (test code = 4.0 g/dL 3.5-5.0 9703094143) ALK PHOS (test code = 101 U/L 34-122 1469438602) ALTv (test code = 19 U/L 5-35 1742-6) AST(SGOT) (test code = 33 U/L 13-40 7632294704) eGFR (test code = mL/min/1.73m2 1006698329) GRACE (test code = GRACE) Association of [...] tests). Lab Interpretation Abnormal (test code = 13757-2) NPI:[id number] PANEL 20 + LACTIC [id number] 16:35:05 Test Item Value Reference Range Interpretation Comments PH (test code = 2) 7.35-7.45 L PCO2 (test code = See_Comment H [Automat ed 3697477020) message] The sy stem which generated this result transmitted reference range : 35 - 45 mmHg. The reference range was not used to interpret this result as normal/abnormal . PO2 (test code = See_Comment H [Automated 3997717916) message] The sy stem which generated this result transmitted reference range : 80 - 100 mmHg. The reference range was not used to interpret this result as normal/abnormal . HCO3 (test code = See_Comment H [Automate d 9012516780) message] The sy stem which generated this result transmitted reference range : 22 - 26 mEq/L. The reference range was not used to interpret this result as normal/abnormal . BE (test code = See_Comment [Automated 1671207130) message] The sy stem which generated this result transmitted reference range : -3.0 - 3.0 mEq/ L. The reference r mara was not used to interpret this result as normal/abnormal . THB (test code = 10.4 g/dL 12.0-16.0 L 2636627140) %O2HB (test code = 98.6 % 94.0-99.0 5362266724) %COHB ART (test code = 0.3 % 0.0-1.5 2610228793) %METHB ART (test code = 0.0 % 0.4-1.5 L 2764211403) VOL%O2 ART (test code = 14.7 % 15.0-23.0 L 0151686870) NA (test code = 143 mmol/L 135-145 9601384515) K+ (test code = 4.2 mmol/L 3.5-5.0 1514638702) AC CA IONZ (test code = 4.80 mg/dL 4.50-5.30 6583737685) GLUCOSE (test code = 185 mg/dL 70-110 H 0001476086) LACTIC ACID (test code 1.29 mmol/L 0.50-2.20 = 6933095968) Lab Interpretation Abnormal (test code = 61175-8) NPI:[id number]-2 (COVID-19) RNA [Presence] in Respiratory specimen by ANT with probe [id number] 06:30:18 Test Item Value Reference Range Interpretation Comments SARS-CoV-2 (COVID-19) RNA Not detected Not-Detected [Presence] in Respiratory specimen by ANT with probe detection (test code = 77502-0) Whether patient is employed in a healthcare setting (test code = 26799-2) Whether the patient has symptoms related to condition of interest (test code = 52795-1) Patient was hospitalized because of this condition (test code = 04439-7) Whether the patient was admitted to intensive care unit (ICU) for condition of interest (test code = 33970-2) Whether patient resides in a congregate care setting (test code = 06576-9) SARS-COV2/RT-PCR ([facility])2019-12-02 19:28:00 Test Item Value Reference Range Interpretation Comments SARS-COV2/RT-PCR (test Negative Not Detected, Negative, code = 4883761) See external report for linked test SARS-COV-2 PERFORMING LAB [facility] (test code = 1009392) Negative result for this test determines that [...] 564(g) of the Act.Fact Sheet for Healthcare Providers:https://www.[employer]/sites/default/files/product/documents/Fact_Shee a_AI_Gcuhzwoql_Clde_PUYL-PoY-9.pdfFact Sheet for Healthcare Patients:https://www.[employer]/sites/default/files/product/ documents/Fhcg_Ievum_Xwfpdzhc_Sjcy_VLBX-NmH-2.pdfPerforming Laboratory:[facility] [place] [address]"
[2021-08-18] MEDS ORDERED: NA CHLORIDE 0.9% 1,000 ML ONE (10:24)
[2021-08-18 11:03] LABS: Absolute Lymphocytes (CBC) 2.2 K/uL (0.7-4.9); Hematocrit 32.4 % (36.0-45.0); Lymphocytes % 29.1 % (15.3-44.8); MPV 8.6 fL (7.6-11.3); RBC Red Blood Cell Count 3.62 M/uL (3.86-4.86)
[2021-08-18 11:09] LABS: Protime INR 1.16
[2021-08-18 11:23] LABS: ALT/SGPT 16 U/L (12-78); AST/SGOT 12 U/L (15-37); Alkaline Phosphatase 108 U/L (45-117); BUN Blood Urea Nitrogen 29 mg/dL (7-18); Bicarbonate 36 mmol/L (21-32); Bilirubin Total 0.3 mg/dL (0.2-1.0); Glomerular Filtration Rate 31 ml/min (=/>90); Glucose Level 103 mg/dL (74-106); Magnesium 2.1 mg/dL (1.8-2.4); NT PRO-BNP 195 pg/mL (<125); Potassium 4.3 mmol/L (3.5-5.1); Protein, Total 7.3 g/dL (6.4-8.2); Sodium Level 143 mmol/L (136-145)
[2021-08-18 11:30] LABS: Bilirubin Direct < 0.1 mg/dL (0-0.2)
[2021-08-18 11:32] LABS: Troponin High Sensitivity 125.3 pg/mL (<58.9)
--- NOTE | 2021-08-18 11:33 | RAD REPORT ---
EXAM DESCRIPTION: CTChest Abd Pelvis Wo Con - 08/18/2021 11:19 am CLINICAL HISTORY: fall COMPARISON: Chest Abd Pelvis Wo Con dated 02/04/2021; Chest For Pe Angio dated 06/09/2019; Chest Abd Pelvis Wo Con dated 05/27/2019; Chest For Pe Angio dated 12/03/2018; Chest Single View dated 07/14/2021 TECHNIQUE: CT of the chest, abdomen, and pelvis was performed without contrast. All CT scans are performed using dose optimization technique as appropriate and may include automated exposure control or mA/KV adjustment according to patient size. FINDINGS: Thorax: Chest Wall: Thyromegaly. Left upper chest wall pacemaker. Lungs: Patchy areas of nonspecific airspace disease in the right middle lobe and lower lobes bilatera lly. Pleura: No effusions or pneumothorax. Ailyn/Mediastinum: No lymphadenopathy. Aorta/Pulmonary Arteries: Unremarkable Heart: Cardiomegaly. Multi-vessel coronary artery disease. Abdomen/Pelvis: Liver: Low-density lesion in the hepatic dome is unchanged, likely benign. Biliary: No biliary ductal dilatation. Stomach: No significant focal abnormality. Duodenum: No significant focal abnormality. Pancreas: No significant abnormality. Spleen: No significant abnormality. Adrenal: No suspicious lesions. Kidney/ureter: No hydronephrosis. No renal calculi. Tiny hyperdense right renal lesion which is stati stically benign. Retroperitoneum: No retroperitoneal adenopathy. Vascular: No aneurysm. Bowel: Moderate stool in the colon.. Peritoneum: No ascites or free air. Bladder: Grossly unremarkable. Reproductive: Hysterectomy Bones: No acute fracture. Fusion hardware in the spine. Other: n/a IMPRESSION: 1. New mild to moderate airspace disease in the right middle lobe and bilateral lung bas es could reflect pneumonia or pneumonitis, including possibly from aspiration. No acute findings in t he abdomen or pelvis. 2. Other incidental findings as noted above.
--- NOTE | 2021-08-18 11:48 | EDPHYS ---
Physician Documentation [facility] Name: Emeli Perez Age: 65 yrs Sex: Female : 1955 Arrival Date: 08/18/2021 Time: 09:53 Bed 14 Private MD: ED Physician Roberto Still HPI: 08/18 11:36 This 65 yrs old Black Female presents to ER via EMS with complaints of Fall Injury. adilia 11:36 Details of fall: The patient fell from seated position, while transferring. Onset: The adilia symptoms/episode began/occurred just prior to arrival. Associated injuries: The patient sustained upper back injury, injury to the low back, injury to the chest, injury to the abdomen. Severity of symptoms: At their worst the symptoms were moderate, in the emergency department the symptoms are unchanged. The patient has not experienced similar symptoms in the past. Historical: - Allergies: 10:05 Codeine; vg1 10:05 Darvocet-N 100; vg1 10:05 Morphine; vg1 10:05 PENICILLINS; vg1 - Home Meds: 10:05 Spironolactone Oral [Active]; Simvastatin Oral [Active]; carvedilol oral [Active]; vg1 Xanax Oral [Active]; - PMHx: 10:05 Anxiety; Arthritis; Atrial Fib; CHF; diabetes mellitus; drop foot; Gout; vg1 Hyperlipidemia; Hypertension; kidney failure; - Immunization history: Last tetanus immunization: unknown. - Social history:: Smoking status: Patient reports the use of cigarette tobacco products, smokes one-half pack cigarettes per day. ROS: 11:36 Constitutional: Negative for fever, chills, and weight loss, Eyes: Negative for injury, adilia pain, redness, and discharge, ENT: Negative for injury, pain, and discharge, Neck: Negative for injury, pain, and swelling, Cardiovascular: Negative for chest pain, palpitations, and edema, Abdomen/GI: Negative for abdominal pain, nausea, vomiting, diarrhea, and constipation, Back: Negative for injury and pain, : Negative for injury, bleeding, discharge, and swelling, MS/Extremity: Negative for injury and deformity, Neuro: Negative for headache, weakness, numbness, tingling, and seizure, Psych: Negative for depression, anxiety, suicide ideation, homicidal ideation, and hallucinations, Allergy/Immunology: Negative for hives, rash, and allergies, Endocrine: Negative for neck swelling, polydipsia, polyuria, polyphagia, and marked weight changes, Hematologic/Lymphatic: Negative for swollen nodes, abnormal bleeding, and unusual bruising. 11:36 Respiratory: Positive for shortness of breath, at rest. 11:36 Abdomen/GI: Positive for 11:36 Skin: Positive for cellulitis, rash, of the right lower quadrant and left lower quadrant. Exam: 11:36 Constitutional: This is a well developed, well nourished patient who is awake, alert, adilia and in no acute distress. Head/Face: Normocephalic, atraumatic. Eyes: Pupils equal round and reactive to light, extra-ocular motions intact. Lids and lashes normal. Conjunctiva and sclera are non-icteric and not injected. Cornea within normal limits. Periorbital areas with no swelling, redness, or edema. ENT: Nares patent. No nasal discharge, no septal abnormalities noted. Tympanic membranes are normal and external auditory canals are clear. Oropharynx with no redness, swelling, or masses, exudates, or evidence of obstruction, uvula midline. Mucous membranes moist. Neck: Trachea midline, no thyromegaly or masses palpated, and no cervical lymphadenopathy. Supple, full range of motion without nuchal rigidity, or vertebral point tenderness. No Meningismus. Chest/axilla: Normal chest wall appearance and motion. Nontender with no deformity. No lesions are appreciated. Cardiovascular: Regular rate and rhythm with a normal S1 and S2. No gallops, murmurs, or rubs. Normal PMI, no JVD. No pulse deficits. Abdomen/GI: Soft, non-tender, with normal bowel sounds. No distension or tympany. No guarding or rebound. No evidence of tenderness throughout. Back: No spinal tenderness. No costovertebral tenderness. Full range of motion. Female : Normal external genitalia. MS/ Extremity: Pulses equal, no cyanosis. Neurovascular intact. Full, normal range of motion. Neuro: Awake and alert, GCS 15, oriented to person, place, time, and situation. Cranial nerves II-XII grossly intact. Motor strength 5/5 in all extremities. Sensory grossly intact. Cerebellar exam normal. Normal gait. Psych: Awake, alert, with orientation to person, place and time. Behavior, mood, and affect are within normal limits. 11:36 ECG was reviewed by the Attending Physician. 11:36 Respiratory: the patient does not display signs of respiratory distress, Respirations: normal, no acute changes, Breath sounds: decreased breath sounds, that are mild, rhonchi, that are mild, stridor, is not appreciated, Respiratory rate: 20 Vital Signs: 09:54 BP 135 / 59; Pulse 80; Resp 20; Temp 98.6(O); Pulse Ox 100% on 4 lpm NC; Weight 72.57 vg1 kg; Height 5 ft. 0 in. (152.40 cm); Pain 10/10; 10:30 BP 109 / 58; Pulse 83; Resp 19; Pulse Ox 100% on 4 lpm NC; vg1 12:30 BP 112 / 62; Pulse 88; Resp 24; Pulse Ox 96% on 2 lpm NC; vg1 13:30 BP 115 / 60; Pulse 72; Resp 20; Pulse Ox 100% on Nebulizer Mask; vg1 14:30 BP 126 / 53; Pulse 79; Resp 18; Pulse Ox 97% on 2 lpm NC; vg1 15:30 BP 129 / 61; Pulse 86; Resp 12; Pulse Ox 94% on 2 lpm NC; vg1 16:30 BP 137 / 71; Pulse 70; Resp 17; Pulse Ox 100% on 2 lpm NC; vg1 17:30 BP 133 / 61; Pulse 80; Resp 20; Pulse Ox 100% on 2 lpm NC; vg1 18:30 BP 139 / 57; Pulse 70; Resp 19; Pulse Ox 100% on 2 lpm NC; vg1 09:54 Body Mass Index 31.25 (72.57 kg, 152.40 cm) vg1 [place] Coma Score: 09:54 Eye Response: spontaneous(4). Verbal Response: oriented(5). Motor Response: obeys vg1 commands(6). Total: 15. Trauma Score (Adult): 09:54 Eye Response: spontaneous(1); Verbal Response: oriented(1); Motor Response: obeys vg1 commands(2); Systolic BP: > 89 mm Hg(4); Respiratory Rate: 10 to 29 per min(4); [place] Score: 15; Trauma Score: 12 MDM: 10:02 Patient medically screened. adilia 11:39 Differential diagnosis: contusion, fracture, multiple trauma, sprain, strain. [facility] Differential diagnosis: non-specific abd pain, Pyelonephritis, urinary tract infection, Blunt Chest Trauma Chest Wall Contusion Chest Wall Injury Pleural Effusion Pneumothorax Pulmonary Contusion Rib Fracture Ruptured Hemidiaphragm. Data reviewed: vital signs, nurses notes, lab test result(s), EKG, radiologic studies, CT scan, plain films. Data interpreted: panel monitor: rate is 80 beats/min, rhythm is regular, Pulse oximetry: on room air is 100 %. Test interpretation: by ED physician or midlevel provider: ECG, plain radiologic studies. Counseling: I had a detailed discussion with the patient and/or guardian regarding: the historical points, exam findings, and any diagnostic results supporting the discharge/admit diagnosis, lab results, radiology results, the need for further work-up and treatment in the hospital. 08/18 10:04 Order name: Basic Metabolic Panel; Complete Time: 11:34 [facility] 08/18 10:04 Order name: CBC with Diff; Complete Time: 11:18 [facility] 08/18 10:04 Order name: LFT's; Complete Time: 11:34 [facility] 08/18 10:04 Order name: Magnesium; Complete Time: 11:34 [facility] 08/18 10:04 Order name: NT PRO-BNP; Complete Time: 11:34 [facility] 08/18 10:04 Order name: PT-INR; Complete Time: 11:18 [facility] 08/18 10:04 Order name: Troponin HS; Complete Time: 11:34 [facility] 08/18 10:04 Order name: XRAY Chest (1 view); Complete Time: 12:52 [facility] 08/18 11:34 Order name: Urine Culture [facility] 08/18 11:34 Order name: SARS-COV-2 RT PCR (Document "Date of Onset" if Symptomatic) [facility] 08/18 11:35 Order name: ABG; Complete Time: 12:52 [facility] 08/18 14:51 Order name: Urine Dipstick-Ancillary [facility] 08/18 19:13 Order name: Troponin High Sensitivity [facility] 08/18 10:04 Order name: EKG; Complete Time: 10:05 [facility] 08/18 10:04 Order name: Humerus Right XRAY; Complete Time: 12:52 [facility] 08/18 10:04 Order name: Forearm Right XRAY; Complete Time: 12:52 [facility] 08/18 11:15 Order name: Chest Abd Pelvis Wo Con; Complete Time: 11:34 EDMS 08/18 10:04 Order name: Cardiac monitoring; Complete Time: 10:32 [facility] 08/18 10:04 Order name: EKG - Nurse/Tech; Complete Time: 10:32 [facility] 08/18 10:04 Order name: IV Saline Lock; Complete Time: 10:54 [facility] 08/18 10:04 Order name: Labs collected and sent; Complete Time: 10:54 [facility] 08/18 10:04 Order name: O2 Per Protocol; Complete Time: 10:08 [facility] 08/18 10:04 Order name: O2 Sat Monitoring; Complete Time: 10:08 [facility] 08/18 10:04 Order name: Urine Dipstick-Ancillary (obtain specimen); Complete Time: 14:49 [facility] EC:36 Rate is 83 beats/min. Rhythm is regular. QRS [place] is Normal. [place] interval is normal. QRS adilia interval is normal. QT interval is normal. No Q waves. T waves are Normal. No ST changes noted. Clinical impression: NSR w/ Non-specific ST/T Changes and No evidence of ischemia. Interpreted by me. Reviewed by me. Administered Medications: 10:54 Drug: NS 0.9% 1000 ml Route: IV; Rate: 75 ml/hr; Site: right hand; vg1 19:09 Follow up: IV Status: Completed infusion; IV Intake: 1000ml vg1 11:35 CANCELLED (Duplicate Order): Rocephin (cefTRIAXone) 1 grams IV at per protocol once; adilia Given slow IV push per pharmacy instructions 12:18 Drug: NS 0.9% 500 ml Route: IV; Rate: bolus; Site: right hand; vg1 13:00 Follow up: IV Status: Completed infusion; IV Intake: 500ml vg1 12:19 Drug: Aspirin Chewable Tablet 162 mg Route: PO; vg1 13:01 Follow up: Response: No adverse reaction vg1 12:20 Drug: Meropenem 1 grams Route: IV; Rate: per protocol; Site: right hand; vg1 13:00 Follow up: IV Status: Completed infusion; IV Intake: 100ml vg1 12:20 Drug: Pepcid (famotidine) 20 mg Route: IVP; Site: right hand; vg1 13:01 Follow up: Response: No adverse reaction vg1 13:27 Drug: Xopenex (levalbuterol) 2.5 mg Route: Inhalation; vg1 15:26 Follow up: Response: No adverse reaction vg1 13:27 Drug: AtroVENT (ipratropium) Aerosol 0.5 mg Route: Inhalation; vg1 15:26 Follow up: Response: No adverse reaction vg1 13:28 Drug: Zofran (Ondansetron) 4 mg Route: IVP; Site: right hand; vg1 15:26 Follow up: Response: No adverse reaction; Marked relief of symptoms vg1 13:30 Drug: fentaNYL (PF) 25 mcg {Note: RASS 2.} Route: IVP; Site: right hand; vg1 14:30 Follow up: Response: No adverse reaction; No change in condition vg1 15:25 Drug: fentaNYL (PF) 25 mcg {Note: RASS 1.} Route: IVP; Site: right hand; vg1 16:30 Follow up: Response: No adverse reaction vg1 Disposition Summary: 08/18/21 11:48 Hospitalization Ordered Hospitalization Status: Inpatient Admission adilia Provider: Domingo Hayden cha Location: Telemetry/MedSurg (Inpatient) adilia Condition: Fair adilia Problem: new adilia Symptoms: have improved adilia Bed/Room Type: Standard [facility] Room Assignment: 205(08/18/21 18:46) bd Diagnosis - Fall on same level, unspecified adilia - Contusion of back wall of thorax adilia - Contusion of abdominal wall adilia - Pneumonia, unspecified organism - RIGHT MIDDLE LOBE , BILATERAL BASES adilia - Abnormal levels of other serum enzymes - TROPONIN adilia Forms: - Medication Reconciliation Form adilia - SBAR form adilia Signatures: Dispatcher [employer] EDMS Jada Iniguez Corey, MD MD cha Garcia, Victoria RN RN vg1 Corrections: (The following items were deleted from the chart) 10:51 10:09 Head C Spine CAP W Con+CT.RAD.BRZ ordered. EDMS EDMS 11:15 10:49 Head C Spine Cap Wo Con+CT.RAD.BRZ ordered. EDMS EDMS 11:35 11:34 Rocephin (cefTRIAXone) 1 grams IV at per protocol once; Given slow IV push per [facility] pharmacy instructions ordered. adilia 18:46 11:48 adilia bd
--- NOTE | 2021-08-18 11:48 | ER ---
Nurse's Notes [facility] Name: Emeli Perez Age: 65 yrs Sex: Female : 1955 Arrival Date: 08/18/2021 Time: 09:53 Bed 14 Private MD: Diagnosis: Fall on same level, unspecified;Contusion of back wall of thorax;Contusion of abdominal wall;Pneumonia, unspecified organism-RIGHT MIDDLE LOBE , BILATERAL BASES;Abnormal levels of other serum enzymes-TROPONIN Presentation: 08/18 09:54 Chief complaint: EMS states: Pt fell about three hours ago, pt missed stepped coming vg1 out of the bathroom; pt denies hitting head or LOC; does c/o of Right arm pain and Right side of ribs and ABD pain. Care prior to arrival: None. Mechanism of Injury: Fall from standing position. Trauma event details: Injury occurred in the [facility]. 09:54 Acuity: CORNELIA 3 vg1 09:54 Method Of Arrival: EMS: [facility] vg1 10:05 Coronavirus screen: Vaccine status: Patient reports receiving the 2nd dose of the covid vg1 vaccine. Client denies travel out of the [place] in the last 14 days. Ebola Screen: Patient denies exposure to infectious person. Patient denies travel to an Ebola-affected area in the 21 days before illness onset. Initial Sepsis Screen: Does the patient meet any 2 criteria? No. Patient's initial sepsis screen is negative. Does the patient have a suspected source of infection? No. Patient's initial sepsis screen is negative. Risk Assessment: Do you want to hurt yourself or someone else? Patient reports no desire to harm self or others. Onset of symptoms was August 18, 2021. Trauma Activation: Physician: ED Physician; Name: Dr Still; Notified At: ; Arrived At: Physician: General Surgeon; Name: ; Notified At: ; Arrived At: Physician: Radiology; Name: ; Notified At: ; Arrived At: Physician: Respiratory; Name: ; Notified At: ; Arrived At: Physician: Lab; Name: ; Notified At: ; Arrived At: Historical: - Allergies: 10:05 Codeine; vg1 10:05 Darvocet-N 100; vg1 10:05 Morphine; vg1 10:05 PENICILLINS; vg1 - Home Meds: 10:05 Spironolactone Oral [Active]; Simvastatin Oral [Active]; carvedilol oral [Active]; vg1 Xanax Oral [Active]; - PMHx: 10:05 Anxiety; Arthritis; Atrial Fib; CHF; diabetes mellitus; drop foot; Gout; vg1 Hyperlipidemia; Hypertension; kidney failure; - Immunization history: Last tetanus immunization: unknown. - Social history:: Smoking status: Patient reports the use of cigarette tobacco products, smokes one-half pack cigarettes per day. Screenin:54 Abuse screen: Denies threats or abuse. Nutritional screening: No deficits noted. vg1 Tuberculosis screening: No symptoms or risk factors identified. Primary Survey: 09:54 NO uncontrolled hemorrhage observed. Breathing/Chest: Spontaneous respiratory effort, vg1 equal unlabored respirations, breath sounds clear bilaterally, regular pattern, symmetrical chest rise and fall. Circulation: No external hemorrhage present. Regular and strong central pulse, skin warm/dry/normal color. Disability Client is alert. Exposure/Environment: There is no evidence of uncontrolled external bleeding. A warming method has been applied: A warm blanket has been provided to the patient. 10:20 Reassessment Alertness and Airway: Awake and alert. The airway is patent. Breathing: vg1 Spontaneous respiratory effort, equal unlabored respirations, breath sounds clear bilaterally, regular pattern with symmetrical chest rise and fall. Circulation: No external hemorrhage noted. Regular and strong central pulse, skin warm/dry/normal color. Secondary Survey: 09:54 HEENT: No deficits noted. Gastrointestinal: Patient reports Other RUQ and RLQ pain. : vg1 No signs and/or symptoms were reported regarding the genitourinary system. Musculoskeletal: Circulation, motion, and sensation intact. Swelling present in SANDRA lower extremities. Assessment: 09:54 General: Appears in no apparent distress. uncomfortable, Behavior is calm, cooperative. vg1 Pain: Complains of pain in anterior aspect of right lateral abdomen and right arm and right side of ribs Pain currently is 10 out of 10 on a pain scale. Pain began 3 hours ago. Neuro: Joe Agitation-Sedation Scale (RASS): 0 - Alert and Calm Level of Consciousness is awake, alert, obeys commands, Oriented to person, place, time, situation. EENT: No signs and/or symptoms were reported regarding the EENT system. Cardiovascular: Patient's skin is warm and dry. Respiratory: Airway is patent Respiratory effort is even, unlabored, Pt uses O2 at home; place at 4 L NC. GI: Abdomen is flat, Reports RUQ and RLQ pain. : No signs and/or symptoms were reported regarding the genitourinary system. Derm: Skin is intact. Musculoskeletal: Swelling SANDRA lower extremities; pt reports hx of CHF. 11:15 Reassessment: Patient appears in no apparent distress at this time. No changes from vg1 previously documented assessment. Patient and/or family updated on plan of care and expected duration. Pain level reassessed. Patient is alert, oriented x 3, equal unlabored respirations, skin warm/dry/pink. 12:06 Reassessment: Patient appears in no apparent distress at this time. Patient and/or vg1 family updated on plan of care and expected duration. Pain level reassessed. Patient is alert, oriented x 3, equal unlabored respirations, skin warm/dry/pink. 13:20 Reassessment: Patient appears in no apparent distress at this time. Patient and/or vg1 family updated on plan of care and expected duration. Pain level reassessed. Patient is alert, oriented x 3, equal unlabored respirations, skin warm/dry/pink. pt appears to be agitated. 14:30 Reassessment: Patient appears in no apparent distress at this time. Patient and/or vg1 family updated on plan of care and expected duration. Pain level reassessed. Patient is alert, oriented x 3, equal unlabored respirations, skin warm/dry/pink. pt appears to be restless; states Left leg pain; provider notified. 15:30 Reassessment: Patient appears in no apparent distress at this time. Patient and/or vg1 family updated on plan of care and expected duration. Pain level reassessed. Patient is alert, oriented x 3, equal unlabored respirations, skin warm/dry/pink. 16:30 Reassessment: Patient appears in no apparent distress at this time. Patient and/or vg1 family updated on plan of care and expected duration. Pain level reassessed. Patient is alert, oriented x 3, equal unlabored respirations, skin warm/dry/pink. stated 'feeling a little better but im still uncomfortable'. 17:30 Reassessment: Patient appears in no apparent distress at this time. No changes from vg1 previously documented assessment. Patient is alert, oriented x 3, equal unlabored respirations, skin warm/dry/pink. Vital Signs: 09:54 BP 135 / 59; Pulse 80; Resp 20; Temp 98.6(O); Pulse Ox 100% on 4 lpm NC; Weight 72.57 vg1 kg; Height 5 ft. 0 in. (152.40 cm); Pain 10/10; 10:30 BP 109 / 58; Pulse 83; Resp 19; Pulse Ox 100% on 4 lpm NC; vg1 12:30 BP 112 / 62; Pulse 88; Resp 24; Pulse Ox 96% on 2 lpm NC; vg1 13:30 BP 115 / 60; Pulse 72; Resp 20; Pulse Ox 100% on Nebulizer Mask; vg1 14:30 BP 126 / 53; Pulse 79; Resp 18; Pulse Ox 97% on 2 lpm NC; vg1 15:30 BP 129 / 61; Pulse 86; Resp 12; Pulse Ox 94% on 2 lpm NC; vg1 16:30 BP 137 / 71; Pulse 70; Resp 17; Pulse Ox 100% on 2 lpm NC; vg1 17:30 BP 133 / 61; Pulse 80; Resp 20; Pulse Ox 100% on 2 lpm NC; vg1 18:30 BP 139 / 57; Pulse 70; Resp 19; Pulse Ox 100% on 2 lpm NC; vg1 09:54 Body Mass Index 31.25 (72.57 kg, 152.40 cm) vg1 [place] Coma Score: 09:54 Eye Response: spontaneous(4). Verbal Response: oriented(5). Motor Response: obeys vg1 commands(6). Total: 15. Trauma Score (Adult): 09:54 Eye Response: spontaneous(1); Verbal Response: oriented(1); Motor Response: obeys vg1 commands(2); Systolic BP: > 89 mm Hg(4); Respiratory Rate: 10 to 29 per min(4); [place] Score: 15; Trauma Score: 12 ED Course: 09:53 Patient arrived in ED. vg1 09:54 Patient has correct armband on for positive identification. Bed in low position. Call vg1 light in reach. Side rails up X2. 09:54 Oxygen administration via nasal cannula \T\ 4L/min. vg1 09:59 Triage completed. vg1 10:02 Cheko, Roberto, MD is Attending Physician. adilia 10:05 Arm band placed on. vg1 10:07 Thermoregulation: warm blanket given to patient. vg1 10:08 Modesta Yee RN is Primary Nurse. vg1 10:54 Inserted saline lock: 22 gauge in right hand, using aseptic technique. ,using aseptic vg1 technique. completed by Isabelle GHOTRA. 11:21 Chest Abd Pelvis Wo Con In Process Unspecified. EDMS 11:45 Domingo Hayden is Hospitalizing Provider. adilia 11:55 XRAY Chest (1 view) In Process Unspecified. EDMS 11:55 Humerus Right XRAY In Process Unspecified. EDMS 11:55 Forearm Right XRAY In Process Unspecified. EDMS Administered Medications: 10:54 Drug: NS 0.9% 1000 ml Route: IV; Rate: 75 ml/hr; Site: right hand; vg1 19:09 Follow up: IV Status: Completed infusion; IV Intake: 1000ml vg1 11:35 CANCELLED (Duplicate Order): Rocephin (cefTRIAXone) 1 grams IV at per protocol once; adilia Given slow IV push per pharmacy instructions 12:18 Drug: NS 0.9% 500 ml Route: IV; Rate: bolus; Site: right hand; vg1 13:00 Follow up: IV Status: Completed infusion; IV Intake: 500ml vg1 12:19 Drug: Aspirin Chewable Tablet 162 mg Route: PO; vg1 13:01 Follow up: Response: No adverse reaction vg1 12:20 Drug: Meropenem 1 grams Route: IV; Rate: per protocol; Site: right hand; vg1 13:00 Follow up: IV Status: Completed infusion; IV Intake: 100ml vg1 12:20 Drug: Pepcid (famotidine) 20 mg Route: IVP; Site: right hand; vg1 13:01 Follow up: Response: No adverse reaction vg1 13:27 Drug: Xopenex (levalbuterol) 2.5 mg Route: Inhalation; vg1 15:26 Follow up: Response: No adverse reaction vg1 13:27 Drug: AtroVENT (ipratropium) Aerosol 0.5 mg Route: Inhalation; vg1 15:26 Follow up: Response: No adverse reaction vg1 13:28 Drug: Zofran (Ondansetron) 4 mg Route: IVP; Site: right hand; vg1 15:26 Follow up: Response: No adverse reaction; Marked relief of symptoms vg1 13:30 Drug: fentaNYL (PF) 25 mcg {Note: RASS 2.} Route: IVP; Site: right hand; vg1 14:30 Follow up: Response: No adverse reaction; No change in condition vg1 15:25 Drug: fentaNYL (PF) 25 mcg {Note: RASS 1.} Route: IVP; Site: right hand; vg1 16:30 Follow up: Response: No adverse reaction vg1 Intake: 13:00 IV: 500ml; Total: 500ml. vg1 13:00 IV: 100ml; Total: 600ml. vg1 19:09 IV: 1000ml; Total: 1600ml. vg1 Outcome: 11:48 Decision to Hospitalize by Provider. adilia 20:52 Patient left the ED. ke1 Signatures: Dispatcher [employer] EDRoberto Arce MD MD cha Garcia, Victoria RN RN shari1 Yoanna Kumar RN RN ke1 Corrections: (The following items were deleted from the chart) 10:05 09:54 BP 135 / 59; Pulse 80bpm; Resp 20bpm; Pulse Ox 100% 4 lpm Nasal Cannula; vg1 vg1 13:41 11:30 BP 112 / 62; Pulse 88bpm; Resp 24bpm; Pulse Ox 96% 2 lpm Nasal Cannula; vg1 vg1
--- NOTE | 2021-08-18 12:02 | RAD REPORT ---
EXAM DESCRIPTION: RAD - Forearm Right - 08/18/2021 11:53 am CLINICAL HISTORY: PAIN COMPARISON: No comparisons FINDINGS: No acute fracture. No malalignment. Enthesophyte along the olecranon. IMPRESSION: No acute osseous abnormality involving the right forearm.
--- NOTE | 2021-08-18 12:03 | RAD REPORT ---
EXAM DESCRIPTION: RAD - Humerus Right - 08/18/2021 11:53 am CLINICAL HISTORY: PAIN COMPARISON: No comparisons FINDINGS/IMPRESSION: No acute fracture. No malalignment. No significant focal degenerative changes.
--- NOTE | 2021-08-18 12:04 | RAD REPORT ---
EXAM DESCRIPTION: RAD - Chest Single View - 08/18/2021 11:53 am CLINICAL HISTORY: COUGH COMPARISON: Chest Single View dated 07/14/2021; Chest Single View dated 02/04/2021; Chest Single View dated 01/03/2021; Chest Single View dated 11/01/2020; Chest Abd Pelvis Wo Con dated 08/18/2021 FINDINGS: Lines: Pacemaker. Lungs: Patchy areas of airspace disease in the right lung. Pleural: No significant pleural effusions or pneumothorax. Cardiac: The heart size is within normal limits. Bones: No acute fractures. ACDF in the cervical spine. Other: IMPRESSION: Patchy airspace disease in the right lung could reflect pneumonia
[2021-08-18 12:11] LABS: Arterial Blood Carboxyhemoglob 3.4 % (0-1.5); Blood Gas Oxyhemoglobin 82.2 % (94-97); Blood O2 Saturation 86.3 % (92-98.5)
[2021-08-18] MEDS ORDERED: ASPIRIN 81 MG CHEWABLE TABLET ONE (12:15)
[2021-08-18] MEDS ORDERED: NA CHLORIDE 0.9% 500 ML ONE (12:15)
[2021-08-18] MEDS ORDERED: Meropenem 1000 MG/VIAL IV ONE (12:15)
[2021-08-18] MEDS ORDERED: NA CHLORIDE 0.9% 100 ML IV ONE (12:16)
[2021-08-18] MEDS ORDERED: FAMOTIDINE 20 MG/2 ML VIAL IV ONE (12:16)
--- NOTE | 2021-08-18 13:27 | P.HP ---
Certification for Inpatient Patient admitted to: Observation With expected LOS: <2 Midnights Practitioner: I am a practitioner with admitting privileges, knowledge of patient current condition, hospital course, and medical plan of care. Services: Services provided to patient in accordance with Admission requirements found in Title 42 Section 412.3 of the Code of Federal Regulations Patient History Date of Service: 08/18/21 Reason for admission: Fall History of Present Illness: 65-year-old man with a history of chronic diastolic heart failure, peripheral edema, chronic renal failure was brought to the emergency department after a fall at home. Patient stated she missed a step and fell on her buttocks. She developed pain in the right hip and therefore presented to the ED. Work-up in the ED demonstrated right middle lobe pneumonia, TEE and elevated troponin up to 125. Patient given IV opioid for pain, started on IV fluid and antibiotics. ED physician wishes to admit for further management. Patient complaining of peripheral edema not responding to her home diuretics. Allergies codeine [Codeine] Allergy (Verified 12/02/19 21:57) Itching/Hives/Rash morphine Allergy (Verified 12/02/19 21:57) Itching/Hives/Rash Penicillins Allergy (Verified 12/02/19 21:57) Itching/Hives/Rash Home Medications: ALPRAZolam [Alprazolam] 0.5 mg PO TID 12/03/18 Clonidine HCl [Catapres*] 0.2 mg PO DAILY 12/03/18 Simvastatin 40 mg PO BEDTIME 12/03/18 Gabapentin [Neurontin] 600 mg PO TID 30 Days #90 tablet 01/09/21 Medihoney [Medihoney Woundcare Gel*] 1 appl TOP DAILY 30 Days #1 tube 01/09/21 Carvedilol [Coreg] 12.5 mg PO BID 02/04/21 Hydrocodone Bit/Acetaminophen [Hydrocodon-Acetaminophn 10-325] 1 tab PO QID 02/04/21 Doxycycline Hyclate 100 mg PO BID 5 Days #10 tablet 02/07/21 Duloxetine HCl [Cymbalta] 30 mg PO BEDTIME 30 Days #30 cap 02/07/21 Aspirin [Aspirin EC 81 MG] 81 mg PO DAILY #30 tablet. 07/15/21 - Past Medical/Surgical History Diabetic: Yes -: Chronic renal disease, Nephrology-Dr. Uribe -: Gout -: Obesity -: CHF, diastolic cardiology-Dr. Luque -: Hyperlipidemia -: Anemia -: Anxiety -: Chronic back pain -: Previous neck fusion -: Previous back fusion -: Back surgeries -: Cholecystectomy -: Appendectomy -: Hysterectomy -: Pacemaker/defibrillator Psychosocial/ Personal History: She is currently . Has 2 children. Has 9 grandchildren. She does not work. - Family History Father -: Heart disease Mother -: Heart disease - Social History Alcohol use: No CD- Drugs: No Caffeine use: No Review of Systems Other: Except as documented, all other systems reviewed and negative. Physical Examination - Physical Exam General: Alert, In no apparent distress, Oriented x3 HEENT: Atraumatic, Normocephalic, Mucous membr. moist/pink, EOMI, Sclerae nonicteric Neck: Supple, JVD not distended Respiratory: Other (Mild bibasilar Rales) Cardiovascular: Regular rate/rhythm, Normal S1 S2, Edema (Bilateral lower extremities) Capillary refill: <2 Seconds Gastrointestinal: Normal bowel sounds, Soft and benign, Non-distended, No tenderness Musculoskeletal: No swelling Integumentary: No rashes, No erythema, No cyanosis Neurological: Normal speech, Other (Left hemiparesis-old) Lymphatics: No axilla or inguinal lymphadenopathy - Studies Laboratory Data (last 24 hrs) 08/18/21 10:49: PT 12.8 H, INR 1.16 08/18/21 10:49: WBC 7.7, Hgb 10.5 L, Hct 32.4 L, Plt Count 347 08/18/21 10:49: Sodium 143, Potassium 4.3, BUN 29 H, Creatinine 1.77 H, Glucose 103, Magnesium 2.1, Total Bilirubin 0.3, AST 12 L, ALT 16, Alkaline Phosphatase 108 Assessment and Plan - Problems (Diagnosis) (1) Acute worsening of stage 3 chronic kidney disease Current Visit: Yes Status: Acute (2) Chronic diastolic heart failure Current Visit: Yes Status: Acute (3) T2DM (type 2 diabetes mellitus) Current Visit: No Status: Chronic Qualifiers: Diabetes mellitus senior living 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 Seen by cardiology 1 month ago recommended medical management. Status post cardiac cath in 2020 and patient reported to have normal coronary arteries. Placed under observation Continue to trend troponin Patient given IV fluid in the ED. Given her chronic peripheral edema, and fluffy infiltrates and chest x-ray, we will stop the IV fluid. Monitor renal function Consults to renal-Dr. Uribe. Hold diuretics Antibiotics for possible pneumonia. PT evaluation given her fall. - Advance Directives Does patient have a Living Will: Yes Does patient have a Durable POA for Healthcare: No
[2021-08-18 14:51] LABS: Urine Blood Negative (Negative); Urine Glucose Negative (Negative); Urine Protein Negative (Negative); Urine Specific Gravity 1.025 (1.005-1.030)
[2021-08-18] MEDS ORDERED: FENTANYL CITR 100 MCG/2 ML ONE (15:25)
[2021-08-18 17:41] VITALS: BMI 32.2
[2021-08-18] MEDS: INSULIN -REGULAR HUMAN 50 UNIT/0.5 ML ML SQ SCH ×2 (17:43→21:00)
[2021-08-18] MEDS ORDERED: ONDANSETRON 4 MG/2 ML VIAL IV PRN (17:43)
[2021-08-18] MEDS ORDERED: ACETAMINOPHEN 500 MG TAB PO PRN (17:43)
[2021-08-18] MEDS: HEPARIN 5000 UNIT/ML 1 ML VIAL SQ SCH (17:43)
[2021-08-18] MEDS: AZITHROMYCIN IV 500 MG in NA CHLORIDE 0.9% 250 ML IVPB SCH (18:00)
[2021-08-18] MEDS: CEFTRIAXONE 1,000 MG in NA CHLORIDE 0.9% 50 ML IVPB SCH (18:00)
[2021-08-18] MEDS ORDERED: NA CHLORIDE 0.9% 50 ML ONE (19:55)
[2021-08-18] MEDS ORDERED: CEFTRIAXONE 1000 MG/VIAL ONE (19:55)
[2021-08-18] MEDS ORDERED: HEPARIN 5000 UNIT/ML 1 ML VIAL ONE (20:10)
[2021-08-18] MEDS ORDERED: AZITHROMYCIN 500 MG INJ IVPB ONE (20:11)
[2021-08-18] MEDS ORDERED: NA CHLORIDE 0.9% 250 ML ONE (20:11)
[2021-08-18] MEDS ORDERED: Oxycodone HCl/Acetaminophen 1 TAB TAB ONE (20:27)
[2021-08-18] MEDS: Oxycodone HCl/Acetaminophen 1 TAB TAB PO PRN (20:28)
[2021-08-19] MEDS: HEPARIN 5000 UNIT/ML 1 ML VIAL SQ SCH ×3 (00:44→17:00)
[2021-08-19] MEDS: Oxycodone HCl/Acetaminophen 1 TAB TAB PO PRN ×2 (01:40→08:44)
[2021-08-19] MEDS ORDERED: HYDROMORPHONE HCL 1 MG/ML INJ IV ONE (03:56)
[2021-08-19 05:32] LABS: Absolute Lymphocytes (CBC) 2.9 K/uL (0.7-4.9); Hematocrit 28.6 % (36.0-45.0); Lymphocytes % 37.2 % (15.3-44.8); MPV 8.4 fL (7.6-11.3); RBC Red Blood Cell Count 3.18 M/uL (3.86-4.86)
[2021-08-19 05:47] LABS: Phosphorus 4.1 mg/dL (2.5-4.9); Potassium 4.1 mmol/L (3.5-5.1)
--- NOTE | 2021-08-19 06:40 | P.PN ---
Date of Service: 08/19/21 Subjective: feeling better, pain better controlled swelling persists, denies shortness of breath this morning intermittently uses O2 at home, as needed ROS: 10 point ROS as noted above, otherwise negative Physical exam GEN: Alert, oriented HEENT: Normal conjunctiva, sclera anicteric CV: Regular rate and rhythm, 1-2+ b/l edema in lower extremities Pulm: Nonlabored respirations on 2L NC ABD: Soft, nontender, nondistended Neuro: Normal speech, normal affect Problem List acute on chornic hypoxemic respiratory failure secondary to acute on chronic diastolic CHF Elevated troponin CKD3 DM2 trop elevated recent echo ~1 month ago, seen for NSTEMI by cardiology - recommended medical management; had cath ~2019 without intervention required f/u 3rd trop dc IVF opacities seen on CXR/CT; pneumonia/pneumonitis vs fluid suspect more pulm edema than infection nephrology consulted, will discuss diuretics - pt states recently changed and didn't notice any change in her UOP on empiric antibiotics for possible pneumonia, continue for now, f/u cultures repeat CXR in AM PT eval Code: full Dispo: home, 1-2 days Time Spent Managing Pts Care (In Minutes): 35
[2021-08-19] MEDS: INSULIN -REGULAR HUMAN 50 UNIT/0.5 ML ML SQ SCH ×4 (07:30→21:00)
[2021-08-19] MEDS ORDERED: PNEUMOCOCCAL VACCINE 0.5 ML IMVAC ONE (08:00)
[2021-08-19] MEDS ORDERED: AZITHROMYCIN 500 MG INJ IVPB ONE (08:17)
[2021-08-19] MEDS ORDERED: NA CHLORIDE 0.9% 250 ML ONE (08:19)
[2021-08-19] MEDS: AZITHROMYCIN IV 500 MG in NA CHLORIDE 0.9% 250 ML IVPB SCH (08:21)
[2021-08-19] MEDS: CEFTRIAXONE 1,000 MG in NA CHLORIDE 0.9% 50 ML IVPB SCH (08:22)
--- NOTE | 2021-08-19 10:22 | EKG ---
Test Date: 2021-08-18 Test Time: 10:23:54 Telephone Order Clerk Room Service: HAMLET MEASUREMENT RESULTS: Intervals: Rate: 83 PA: 156 QRSD: 92 QT: 370 QTc: 434 Altus: P: 62 PA: 156 QRS: 46 T: 22 INTERPRETIVE STATEMENTS: Normal sinus rhythm Normal ECG Compared to ECG 07/13/2021 23:45:23 Left ventricular hypertrophy no longer present Early repolarization no longer present Electronically Signed On 08-19-21 10:17:48 CDT by Junaid Elizabeth
--- NOTE | 2021-08-19 15:40 | P.CNS ---
Date of Consult: 08/19/21 Reason for Consult: TEE/ CKD Requesting Physician: Joshua Canas Chief Complaint: Fall History of Present Illness: 65-year-old man with a history of chronic diastolic heart failure, peripheral edema, chronic renal failure was brought to the emergency department after a fall at home. Patient stated she missed a step and fell on her buttocks. She developed pain in the right hip and therefore presented to the ED. Work-up in the ED demonstrated right middle lobe pneumonia, TEE and elevated troponin up to 125. Patient given IV opioid for pain, started on IV fluid and antibiotics. ED physician wishes to admit for further management. Patient complaining of peripheral edema not responding to her home diuretics. 11:36 This 65 yrs old Black Female presents to ER via EMS with complaints of Fall Injury. adilia 11:36 Details of fall: The patient fell from seated position, while transferring. Onset: The adilia symptoms/episode began/occurred just prior to arrival. Associated injuries: The patient sustained upper back injury, injury to the low back, injury to the chest, injury to the abdomen. Severity of symptoms: At their worst the symptoms were moderate, in the emergency department the symptoms are unchanged. The patient has not experienced similar symptoms in the past. Allergies codeine [Codeine] Allergy (Verified 12/02/19 21:57) Itching/Hives/Rash morphine Allergy (Verified 12/02/19 21:57) Itching/Hives/Rash Penicillins Allergy (Verified 12/02/19 21:57) Itching/Hives/Rash Home medications list reviewed: Yes Home Medications: ALPRAZolam [Alprazolam] 0.5 mg PO TID 12/03/18 Clonidine HCl [Catapres*] 0.2 mg PO DAILY 12/03/18 Simvastatin 40 mg PO BEDTIME 12/03/18 Gabapentin [Neurontin] 600 mg PO TID 30 Days #90 tablet 01/09/21 Medihoney [Medihoney Woundcare Gel*] 1 appl TOP DAILY 30 Days #1 tube 01/09/21 Carvedilol [Coreg] 12.5 mg PO BID 02/04/21 Hydrocodone Bit/Acetaminophen [Hydrocodon-Acetaminophn 10-325] 1 tab PO QID 02/04/21 Doxycycline Hyclate 100 mg PO BID 5 Days #10 tablet 02/07/21 Duloxetine HCl [Cymbalta] 30 mg PO BEDTIME 30 Days #30 cap 02/07/21 Aspirin [Aspirin EC 81 MG] 81 mg PO DAILY #30 tablet. 07/15/21 - Past Medical/Surgical History Diabetic: Yes -: Chronic renal disease, Nephrology-Dr. Uribe -: Gout -: Obesity -: CHF, diastolic cardiology-Dr. Luque -: Hyperlipidemia -: Anemia -: Anxiety -: Chronic back pain -: Previous neck fusion -: Previous back fusion -: Back surgeries -: Cholecystectomy -: Appendectomy -: Hysterectomy -: Pacemaker/defibrillator Psychosocial/ Personal History: She is currently . Has 2 children. Has 9 grandchildren. She does not work. - Family History Father Medical History: Heart disease Mother Medical History: Heart disease - Social History Smoking Status: Current every day smoker Alcohol use: No CD- Drugs: No Caffeine use: No Place of Residence: Home Review of Systems 10-point ROS is otherwise unremarkable General: Weakness Respiratory: SOB with Excertion Cardiovascular: Edema Musculoskeletal: Foot Pain Physical Examination Temp Pulse Resp BP Pulse Ox 96.8 F 60 16 136/55 L 100 08/19/21 12:00 08/19/21 12:00 08/19/21 12:00 08/19/21 12:00 08/19/21 12:00 General: Oriented x3, Cooperative HEENT: Atraumatic Neck: Supple Respiratory: Normal air movement Cardiovascular: Regular rate/rhythm, Edema Gastrointestinal: Soft and benign, Non-distended, No guarding Musculoskeletal: No clubbing, No contractures Integumentary: No rashes, No cyanosis Neurological: Normal speech Blood work reviewed in the chart. Imagings Data: EXAM DESCRIPTION: CTChest Abd Pelvis Wo Con - 08/18/2021 11:19 am CLINICAL HISTORY: fall COMPARISON: Chest Abd Pelvis Wo Con dated 02/04/2021; Chest For Pe Angio dated 06/09/2019; Chest Abd Pelvis Wo Con dated 05/27/2019; Chest For Pe Angio dated 12/03/2018; Chest Single View dated 07/14/2021 TECHNIQUE: CT of the chest, abdomen, and pelvis was performed without contrast. All CT scans are performed using dose optimization technique as appropriate and may include automated exposure control or mA/KV adjustment according to patient size. FINDINGS: Thorax: Chest Wall: Thyromegaly. Left upper chest wall pacemaker. Lungs: Patchy areas of nonspecific airspace disease in the right middle lobe and lower lobes bilaterally. Pleura: No effusions or pneumothorax. Ailyn/Mediastinum: No lymphadenopathy. Aorta/Pulmonary Arteries: Unremarkable Heart: Cardiomegaly. Multi-vessel coronary artery disease. Abdomen/Pelvis: Liver: Low-density lesion in the hepatic dome is unchanged, likely benign. Biliary: No biliary ductal dilatation. Stomach: No significant focal abnormality. Duodenum: No significant focal abnormality. Pancreas: No significant abnormality. Spleen: No significant abnormality. Adrenal: No suspicious lesions. Kidney/ureter: No hydronephrosis. No renal calculi. Tiny hyperdense right renal lesion which is statistically benign. Retroperitoneum: No retroperitoneal adenopathy. Vascular: No aneurysm. Bowel: Moderate stool in the colon.. Peritoneum: No ascites or free air. Bladder: Grossly unremarkable. Reproductive: Hysterectomy Bones: No acute fracture. Fusion hardware in the spine. Other: n/a IMPRESSION: 1. New mild to moderate airspace disease in the right middle lobe and bilateral lung bases could reflect pneumonia or pneumonitis, including possibly from aspiration. No acute findings in the abdomen or pelvis. 2. Other incidental findings as noted above. EXAM DESCRIPTION: RAD - Chest Single View - 08/18/2021 11:53 am CLINICAL HISTORY: COUGH COMPARISON: Chest Single View dated 07/14/2021; Chest Single View dated 02/04/2021; Chest Single View dated 01/03/2021; Chest Single View dated 11/01/2020; Chest Abd Pelvis Wo Con dated 08/18/2021 FINDINGS: Lines: Pacemaker. Lungs: Patchy areas of airspace disease in the right lung. Pleural: No significant pleural effusions or pneumothorax. Cardiac: The heart size is within normal limits. Bones: No acute fractures. ACDF in the cervical spine. Other: IMPRESSION: Patchy airspace disease in the right lung could reflect pneumonia Conclusions/Impression: TEE likely CRS CKD III with proteinuria -No NSAIDs -Start diuresis Alkalosis -Diamox X1 HTN with CKD/ CHF -Start Coreg 6.25mg BID Diastolic CHF, A/C Acute hypoxic respiratory failure -Chlorthalidone/ Spironolactone X1 -Diamox X1 DM II with CKD -RISS Anemia -Monitor H&H Gout -Monitor UA level Case reviewed with Dr. Canas Thank you kindly for the consultation.
[2021-08-19] MEDS ORDERED: CHLORTHALIDONE 25 MG TAB PO ONE (16:35)
[2021-08-20] MEDS: HEPARIN 5000 UNIT/ML 1 ML VIAL SQ SCH ×3 (02:00→16:30)
[2021-08-20 06:15] LABS: Absolute Lymphocytes (CBC) 2.4 K/uL (0.7-4.9); Hematocrit 31.6 % (36.0-45.0); Lymphocytes % 26.7 % (15.3-44.8); MPV 8.5 fL (7.6-11.3); RBC Red Blood Cell Count 3.59 M/uL (3.86-4.86)
[2021-08-20 06:18] LABS: Potassium 4.2 mmol/L (3.5-5.1)
[2021-08-20 06:22] LABS: Magnesium 2.1 mg/dL (1.8-2.4); Phosphorus 3.6 mg/dL (2.5-4.9); Uric Acid 9.6 mg/dL (2.6-6.0)
[2021-08-20] MEDS: INSULIN -REGULAR HUMAN 50 UNIT/0.5 ML ML SQ SCH ×4 (07:30→21:00)
[2021-08-20] MEDS ORDERED: CEFTRIAXONE 1000 MG/VIAL ONE (08:21)
[2021-08-20] MEDS: AZITHROMYCIN IV 500 MG in NA CHLORIDE 0.9% 250 ML IVPB SCH (08:26)
[2021-08-20] MEDS: BUMETANIDE 1 MG TABLET PO SCH ×2 (08:27→16:30)
[2021-08-20] MEDS: SPIRONOLACTONE 25 MG TABLET PO SCH (08:28)
[2021-08-20] MEDS: carvediloL 6.25 MG TAB PO SCH ×2 (08:28→22:32)
[2021-08-20] MEDS: HYDROCODONE/APAP 10/325 TAB PO PRN ×2 (08:28→18:53)
--- NOTE | 2021-08-20 08:36 | RAD REPORT ---
EXAM DESCRIPTION: RAD - Chest Single View - 08/20/2021 5:26 am CLINICAL HISTORY: f/u opacities Chest pain. COMPARISON: Chest Single View dated 08/18/2021; Chest Single View dated 07/14/2021; Chest Single View da masoud 02/04/2021; Chest Single View dated 01/03/2021 FINDINGS: Portable technique limits examination quality. Bilateral pulmonary opacities are present, greater on the left probably representing pulmonary edema. Atelectasis is present in the right lung base with elevated right hemidiaphragm. The heart is normal in size. Dual lead pacer device is present. IMPRESSION: Mild to moderate CHF.
[2021-08-20] MEDS ORDERED: NA CHLORIDE 0.9% 50 ML ONE (09:16)
[2021-08-20] MEDS: CEFTRIAXONE 1,000 MG in NA CHLORIDE 0.9% 50 ML IVPB SCH ×2 (09:17→21:00)
[2021-08-20] MEDS: acetaZOLAMIDE 250 MG TAB PO SCH (11:26)
[2021-08-20 12:05] LABS: Urine Appearance Clear (Clear); Urine Bilirubin Negative (Negative); Urine Blood Negative (Negative); Urine Color Yellow (Yellow); Urine Glucose Negative (Negative); Urine Protein Negative (Negative); Urine Urobilinogen 0.2 mg/dL (0.2-1.0); Urine pH 7.5 (5.0-7.0)
[2021-08-20 12:10] LABS: Urine Microscopic Reflex ORDER UMIC
[2021-08-20 12:13] LABS: Urine Bacteria <20 /HPF (<20); Urine RBC <5 /HPF (NONE SEEN); Urine Urothelial Cells <5 /HPF (NONE SEEN)
[2021-08-20] MEDS ORDERED: ALPRAZOLAM 0.5 MG TABLET PO PRN (14:17)
--- NOTE | 2021-08-20 16:13 | P.PN ---
Date of Service: 08/20/21 Subjective: feeling better today intermittent anxiety afebrile breathing is ok, reports just dealing with pain from fall ROS: 10 point ROS as noted above, otherwise negative Physical exam GEN: Alert, oriented HEENT: Normal conjunctiva, sclera anicteric CV: Regular rate and rhythm, 1-2+ b/l edema in lower extremities Pulm: Nonlabored respirations on 4L NC ABD: Soft, nontender, nondistended Neuro: Normal speech, normal affect Problem List acute on chornic hypoxemic respiratory failure secondary to acute on chronic diastolic CHF Elevated troponin CKD3 DM2 trop elevated, recent echo ~1 month ago, seen for NSTEMI by cardiology - recommended medical management; had cath ~2019 without intervention required fluid overloaded, nephrology following, diuresing improved slightly overnight 04/15 blood cultures: GNR; patient does not appear septic, suspect contamination, possible source: lungs; UA was clean suspect more pulm edema than infection repeat cultures ordered today ID consulted increase rocephin dose to cover for possible bacteremia PT eval patient states uses O2 as needed at home - mostly more due to anxiety / panic attacks wean O2 as tolerated Code: full Dispo: home, 1-2 days Time Spent Managing Pts Care (In Minutes): 35
[2021-08-20] MEDS ORDERED: SPIRONOLACTONE 25 MG TABLET PO ONE (16:35)
[2021-08-20] MEDS ORDERED: acetaZOLAMIDE 250 MG TAB PO ONE (18:00)
--- NOTE | 2021-08-20 21:24 | P.PN ---
Date of Service: 08/20/21 Vital Signs Temp Pulse Resp BP Pulse Ox 97 F 69 19 169/71 H 100 08/20/21 20:00 08/20/21 20:00 08/20/21 20:00 08/20/21 20:00 08/20/21 20:00 Medications Acetaminophen (Acetaminophen 500 Mg Tab) 500 mg PO Q4HP PRN PRN Reason: TEMP > 100.4' F Hydrocodone Bitart/Acetaminophen (Hydrocodone/Apap 10/325 Tab) 1 tab PO Q8H PRN PRN Reason: Pain scale 5-7 (Moderate) Last Admin: 08/20/21 18:53 Dose: 1 tab Documented by: Acetazolamide (Acetazolamide 250 Mg Tab) 500 mg PO Q24H [facility] Last Admin: 08/20/21 11:26 Dose: 500 mg Documented by: Alprazolam (Alprazolam 0.5 Mg Tablet) 0.5 mg PO TID PRN PRN Reason: ANXIETY Bumetanide (Bumetanide 1 Mg Tablet) 2 mg PO BIDL [facility] Last Admin: 08/20/21 16:30 Dose: 2 mg Documented by: Carvedilol (Carvedilol 6.25 Mg Tab) 6.25 mg PO BID [facility] Last Admin: 08/20/21 08:28 Dose: 6.25 mg Documented by: Heparin Sodium (Porcine) (Heparin 5000 Unit/Ml 1 Ml Vial) 5,000 unit SQ Q8HR [facility] Last Admin: 08/20/21 16:30 Dose: Not Given Documented by: Azithromycin 500 mg/ Sodium (Chloride) 250 mls @ 250 mls/hr IVPB DAILY [facility]; Protocol Last Admin: 08/20/21 08:26 Dose: 250 mls Documented by: Ceftriaxone Sodium 1,000 mg/ (Sodium Chloride) 50 mls @ 100 mls/hr IVPB Q12HR [facility]; Protocol Insulin Human Regular (Insulin -Regular Human 50 Unit/0.5 Ml Ml) 0 unit SQ ACHS [facility]; Protocol Last Admin: 08/20/21 15:50 Dose: Not Given Documented by: Ondansetron HCl (Ondansetron 4 Mg/2 Ml Vial) 4 mg IV Q6HP PRN PRN Reason: NAUSEA / VOMITING Sodium Chloride (Flush Normal Saline 10 Ml) 10 ml IV BID [facility] Last Admin: 08/20/21 09:17 Dose: 10 ml Documented by: Spironolactone (Spironolactone 25 Mg Tablet) 25 mg PO DAILY BRANDIN Last Admin: 08/20/21 08:28 Dose: 25 mg Documented by: Lab Results (last 24 hrs) 08/20/21 07:30: POC Glucose 86 08/20/21 05:31: Uric Acid 9.6 H, Phosphorus 3.6, Magnesium 2.1, NT-Pro-B Natriuret Pep 4133 H 08/20/21 05:31: Sodium 142, Potassium 4.2, Chloride 103, Carbon Dioxide 35 H, Anion Gap 8.2, BUN 20 H, Creatinine 1.33 H, Est GFR (CKD-EPI) 44 L, Glucose 80, Calcium 9.5 08/20/21 05:31: WBC 8.9, RBC 3.59 L, Hgb 10.6 L, Hct 31.6 L, MCV 87.8, MCH 29.5, MCHC 33.6, RDW 16.6 H, Plt Count 371, MPV 8.5, Neutrophils % 63.0, Lymphocytes % 26.7, Monocytes % 6.8, Eosinophils % 2.9, Basophils % 0.6, Absolute Neutrophils 5.6, Absolute Lymphocytes 2.4, Absolute Monocytes 0.6, Absolute Eosinophils 0.3, Absolute Basophils 0.1 Microbiology Results 08/18/21 14:47 Catheterized Urine [place] Count - Final No growth. 08/18/21 14:47 Catheterized Urine - Final No growth. 08/18/21 21:13 Blood - Blood Aerobic Blood Culture - Preliminary Gram Neg Jose 08/18/21 21:13 Blood - Blood Blood Culture Gram Stain - Final 08/18/21 21:13 Blood - Blood Anaerobic Blood Culture - Final 08/18/21 18:34 Blood - Blood Aerobic Blood Culture - Preliminary No growth in 24 hours. 08/18/21 18:34 Blood - Blood Anaerobic Blood Culture - Preliminary No growth in 24 hours. Assessment/ Plan: Nephrology Dyspnea improving No chest pain Good urine output No acute events overnight Vitals, medications, blood work and imaging reviewed in the chart. General: Oriented x3, Cooperative HEENT: Atraumatic Neck: Supple Respiratory: Normal air movement Cardiovascular: Regular rate/rhythm, Edema Gastrointestinal: Soft and benign, Non-distended, No guarding Musculoskeletal: No clubbing, No contractures Integumentary: No rashes, No cyanosis Neurological: Normal speech Blood work reviewed in the chart. Imagings Data: EXAM DESCRIPTION: CTChest Abd Pelvis Wo Con - 08/18/2021 11:19 am CLINICAL HISTORY: fall COMPARISON: Chest Abd Pelvis Wo Con dated 02/04/2021; Chest For Pe Angio dated 06/09/2019; Chest Abd Pelvis Wo Con dated 05/27/2019; Chest For Pe Angio dated 12/03/2018; Chest Single View dated 07/14/2021 TECHNIQUE: CT of the chest, abdomen, and pelvis was performed without contrast. All CT scans are performed using dose optimization technique as appropriate and may include automated exposure control or mA/KV adjustment according to patient size. FINDINGS: Thorax: Chest Wall: Thyromegaly. Left upper chest wall pacemaker. Lungs: Patchy areas of nonspecific airspace disease in the right middle lobe and lower lobes bilaterally. Pleura: No effusions or pneumothorax. Ailyn/Mediastinum: No lymphadenopathy. Aorta/Pulmonary Arteries: Unremarkable Heart: Cardiomegaly. Multi-vessel coronary artery disease. Abdomen/Pelvis: Liver: Low-density lesion in the hepatic dome is unchanged, likely benign. Biliary: No biliary ductal dilatation. Stomach: No significant focal abnormality. Duodenum: No significant focal abnormality. Pancreas: No significant abnormality. Spleen: No significant abnormality. Adrenal: No suspicious lesions. Kidney/ureter: No hydronephrosis. No renal calculi. Tiny hyperdense right renal lesion which is statistically benign. Retroperitoneum: No retroperitoneal adenopathy. Vascular: No aneurysm. Bowel: Moderate stool in the colon.. Peritoneum: No ascites or free air. Bladder: Grossly unremarkable. Reproductive: Hysterectomy Bones: No acute fracture. Fusion hardware in the spine. Other: n/a IMPRESSION: 1. New mild to moderate airspace disease in the right middle lobe and bilateral lung bases could reflect pneumonia or pneumonitis, including possibly from aspiration. No acute findings in the abdomen or pelvis. 2. Other incidental findings as noted above. EXAM DESCRIPTION: RAD - Chest Single View - 08/18/2021 11:53 am CLINICAL HISTORY: COUGH COMPARISON: Chest Single View dated 07/14/2021; Chest Single View dated 02/04/2021; Chest Single View dated 01/03/2021; Chest Single View dated 11/01/2020; Chest Abd Pelvis Wo Con dated 08/18/2021 FINDINGS: Lines: Pacemaker. Lungs: Patchy areas of airspace disease in the right lung. Pleural: No significant pleural effusions or pneumothorax. Cardiac: The heart size is within normal limits. Bones: No acute fractures. ACDF in the cervical spine. Other: IMPRESSION: Patchy airspace disease in the right lung could reflect pneumonia Conclusions/Impression: TEE likely CRS CKD III with proteinuria -No NSAIDs -Continue diuresis Alkalosis -Diamox 500mg q24h HTN with CKD/ CHF -Continue Coreg 6.25mg BID Diastolic CHF, A/C Acute hypoxic respiratory failure -Bumex BID -Spironolactone Daily -Diamox q24H DM II with CKD -RISS Anemia -Monitor H&H Gout -Monitor UA level Case reviewed with Dr. Canas
[2021-08-20] MEDS: allopurinoL 100 MG TAB PO SCH (21:30)
--- NOTE | 2021-08-21 00:44 | CON ---
History Of Present Illness: This is a 65-year-old female I was consulted for evaluation of respirato ry failure and gram-negative pedro bacteremia versus contamination. The patient is feeling much better today. Denies any headache, nausea, vomiting, chest pain, abdominal pain, constipation, diarrhea. Past Medical History: Gout, obesity, congestive heart failure, hyperlipidemia, anemia, anxiety, [facility] back pain, previous neck and back fusion. Past Surgical History: Cholecystectomy, appendectomy, hysterectomy. Social History: Nonsmoker, nondrinker. Family History: Noncontributory except heart disease. Medications: The patient is currently on Zithromax and Rocephin. Review of Systems: A 10-point review was performed. Physical Examination: General: This is a 65-year-old female lying in bed, not in any acute cardiopulmonary distress. Vital Signs: Temperature 97, pulse 64, respirations 18, blood pressure 182/76. HEENT: Unremarkable. Neck: Supple. Lungs: Basal crackles, left more than right. Heart: S1, S2. Regular. Abdomen: Soft, nontender. Bowel sounds present. EXTREMITIES: No edema. Laboratory Data: Shows WBC 8.9, hemoglobin 10.6, platelets are 371. Chemistry shows sodium 142, pot assium 4.2, chloride 103, bicarb 34, BUN 20, creatinine 1.33. BNP is 4133. Chest x-ray shows some a telectasis at the base. Assessment And Plan: 1.A 65-year-old female with multiple medical problems, coming in for respiratory failure and bactere kaylin secondary to gram-negative rods, 1/4 bottles. Repeat cultures are pending. Urine culture is neg ative for any growth. 2.Congestive heart failure. 3.Anemia of chronic disease. Continue supportive care and current medications. Consider stopping Z ithromax. We will follow the patient closely. NF/MODL Voice ID: [id number] Report ID: [id number]
[2021-08-21] MEDS: HEPARIN 5000 UNIT/ML 1 ML VIAL SQ SCH ×3 (01:00→16:18)
[2021-08-21] MEDS: HYDROCODONE/APAP 10/325 TAB PO PRN ×2 (02:21→09:51)
[2021-08-21 06:22] LABS: Albumin 2.9 g/dL (3.4-5.0); Magnesium 2.2 mg/dL (1.8-2.4); Phosphorus 4.4 mg/dL (2.5-4.9); Potassium 3.5 mmol/L (3.5-5.1)
--- NOTE | 2021-08-21 06:23 | P.PN ---
Date of Service: 08/21/21 Subjective: ROS: 10 point ROS as noted above, otherwise negative Physical exam GEN: Alert, oriented HEENT: Normal conjunctiva, sclera anicteric CV: Regular rate and rhythm, 1-2+ b/l edema in lower extremities Pulm: Nonlabored respirations on 4L NC ABD: Soft, nontender, nondistended Neuro: Normal speech, normal affect Problem List acute on chornic hypoxemic respiratory failure secondary to acute on chronic diastolic CHF Elevated troponin CKD3 DM2 trop elevated, recent echo ~1 month ago, seen for NSTEMI by cardiology - recommended medical management; had cath ~2019 without intervention required fluid overloaded, nephrology following, diuresing improved slightly overnight 04/15 blood cultures: GNR; patient does not appear septic, suspect contamination, possible source: lungs; UA was clean suspect more pulm edema than infection repeat cultures ordered today ID consulted increase rocephin dose to cover for possible bacteremia PT eval patient states uses O2 as needed at home - mostly more due to anxiety / panic attacks wean O2 as tolerated Code: full Dispo: home, 1-2 days Time Spent Managing Pts Care (In Minutes): 35
[2021-08-21] MEDS: INSULIN -REGULAR HUMAN 50 UNIT/0.5 ML ML SQ SCH ×3 (07:30→16:30)
[2021-08-21] MEDS: BUMETANIDE 1 MG TABLET PO SCH ×2 (08:25→16:17)
[2021-08-21] MEDS: carvediloL 6.25 MG TAB PO SCH (08:25)
[2021-08-21] MEDS: SPIRONOLACTONE 25 MG TABLET PO SCH (08:26)
[2021-08-21] MEDS: CEFTRIAXONE 1,000 MG in NA CHLORIDE 0.9% 50 ML IVPB SCH (08:26)
[2021-08-21] MEDS: allopurinoL 100 MG TAB PO SCH (08:27)
[2021-08-21] MEDS ORDERED: POTASSIUM 25 MEQ EFFERV TAB PO ONE (09:00)
[2021-08-21 10:24] VITALS: O2SAT 100
[2021-08-21] MEDS ORDERED: SPIRONOLACTONE 25 MG TABLET PO SCH (11:00)
[2021-08-21] MEDS ORDERED: SPIRONOLACTONE 25 MG TABLET PO ONE (11:00)
[2021-08-21] MEDS ORDERED: POTASSIUM CL SA 10 MEQ TAB PO ONE (11:38)
[2021-08-21] MEDS: acetaZOLAMIDE 250 MG TAB PO SCH (12:08)
[2021-08-21 12:14] VITALS: TEMP 97.4
--- NOTE | 2021-08-21 14:27 | CON ---
Date of Consultation: 08/19/2021 Reason For Consultation: Status post a fall and a history of pacemaker. History Of Present Illness: Ms. Preez is 65. She is known to us from previous office visits and admissions. She has had a normal heart catheterization in 2019. Had a normal echocardiogram in 1. Came in after a fall. No syncope. Denied any chest pain, nausea, vomiting, diaphoresis, PND, or thopnea, pedal edema, palpitation, or syncope. She was found to have slightly elevated troponin. Past Medical History: Includes history of pacemaker placement, obesity, anxiety, anemia, gout, gastr oesophageal reflux disease, pulmonary embolus, DVT, hypertension, and chronic renal disease. Allergies: TO CODEINE, PENICILLIN, AND MORPHINE. Review of Systems: Negative. Social History: Negative. Family History: Noncontributory. Medications: At home include aspirin, Xanax, Coreg, clonidine, Zocor, Neurontin, and Aldactone. Physical Examination: Vital Signs: Stable. She was afebrile. HEENT: Negative. Neck: Supple with no bruit. Chest: Clear to auscultation and percussion. Cardiac: Exam revealed a regular rhythm and rate with an S4 gallop. No murmurs or rubs. Abdomen: Benign. Extremities: Revealed no clubbing, cyanosis. She had trace edema. Skin: Dry and intact. Neurologic: She was nonfocal. Diagnostic Data: EKG was unremarkable. Chest x-ray was negative. Creatinine is 1.63. Hemoglobin 9 .2. Troponin is 149. PO2 of 52, pCO2 of 53, pH of 7.46. Impression And Plan: 1.Fall, not related to syncope. 2.Elevated troponin secondary to demand ischemia from hypoxia and renal insufficiency and anemia. N o need for any further cardiac workup at this point. 3.History of pacemaker. She needs to have that checked as an outpatient and we will see her in the office soon in that regard. 4.Hypertension, well controlled. 5.History of pulmonary embolus and deep vein thrombosis that have resolved. 6.Chronic renal disease. 7.Gastroesophageal reflux disease. 8.Anemia. 9.Gout. 10.Morbid obesity. 11.Dyslipidemia. Again, I would continue her present management, hydrate her gently, check her pacemaker as an outpati ent. No need for further cardiac workup at this point. I will sign off her case. We will see her i n the office soon. ESTHER Voice ID: [id number] Report ID: [id number]
[2021-08-21 16:33] VITALS: BP 107/59
--- NOTE | 2021-08-21 20:36 | P.PN ---
Date of Service: 08/21/21 Vital Signs Temp Pulse Resp BP Pulse Ox 97.4 F 64 16 107/59 L 100 08/21/21 16:00 08/21/21 16:00 08/21/21 16:00 08/21/21 16:00 08/21/21 16:00 Microbiology Results 08/18/21 14:47 Catheterized Urine Rousseau Count - Final No growth. 08/18/21 14:47 Catheterized Urine - Final No growth. 08/18/21 21:13 Blood - Blood Aerobic Blood Culture - Preliminary Gram Neg Jose 08/18/21 21:13 Blood - Blood Blood Culture Gram Stain - Final 08/18/21 21:13 Blood - Blood Anaerobic Blood Culture - Final 08/18/21 18:34 Blood - Blood Aerobic Blood Culture - Preliminary No growth in 24 hours. 08/18/21 18:34 Blood - Blood Anaerobic Blood Culture - Preliminary No growth in 24 hours. Assessment/ Plan: Nephrology Dyspnea improving No chest pain Good urine output No acute events overnight Vitals, medications, blood work and imaging reviewed in the chart. General: Oriented x3, Cooperative HEENT: Atraumatic Neck: Supple Respiratory: Normal air movement Cardiovascular: Regular rate/rhythm, Edema Gastrointestinal: Soft and benign, Non-distended, No guarding Musculoskeletal: No clubbing, No contractures Integumentary: No rashes, No cyanosis Neurological: Normal speech Blood work reviewed in the chart. Imagings Data: EXAM DESCRIPTION: CTChest Abd Pelvis Wo Con - 08/18/2021 11:19 am CLINICAL HISTORY: fall COMPARISON: Chest Abd Pelvis Wo Con dated 02/04/2021; Chest For Pe Angio dated 06/09/2019; Chest Abd Pelvis Wo Con dated 05/27/2019; Chest For Pe Angio dated 12/03/2018; Chest Single View dated 07/14/2021 TECHNIQUE: CT of the chest, abdomen, and pelvis was performed without contrast. All CT scans are performed using dose optimization technique as appropriate and may include automated exposure control or mA/KV adjustment according to patient size. FINDINGS: Thorax: Chest Wall: Thyromegaly. Left upper chest wall pacemaker. Lungs: Patchy areas of nonspecific airspace disease in the right middle lobe and lower lobes bilaterally. Pleura: No effusions or pneumothorax. Ailyn/Mediastinum: No lymphadenopathy. Aorta/Pulmonary Arteries: Unremarkable Heart: Cardiomegaly. Multi-vessel coronary artery disease. Abdomen/Pelvis: Liver: Low-density lesion in the hepatic dome is unchanged, likely benign. Biliary: No biliary ductal dilatation. Stomach: No significant focal abnormality. Duodenum: No significant focal abnormality. Pancreas: No significant abnormality. Spleen: No significant abnormality. Adrenal: No suspicious lesions. Kidney/ureter: No hydronephrosis. No renal calculi. Tiny hyperdense right renal lesion which is statistically benign. Retroperitoneum: No retroperitoneal adenopathy. Vascular: No aneurysm. Bowel: Moderate stool in the colon.. Peritoneum: No ascites or free air. Bladder: Grossly unremarkable. Reproductive: Hysterectomy Bones: No acute fracture. Fusion hardware in the spine. Other: n/a IMPRESSION: 1. New mild to moderate airspace disease in the right middle lobe and bilateral lung bases could reflect pneumonia or pneumonitis, including possibly from aspiration. No acute findings in the abdomen or pelvis. 2. Other incidental findings as noted above. EXAM DESCRIPTION: RAD - Chest Single View - 08/18/2021 11:53 am CLINICAL HISTORY: COUGH COMPARISON: Chest Single View dated 07/14/2021; Chest Single View dated 02/04/2021; Chest Single View dated 01/03/2021; Chest Single View dated 11/01/2020; Chest Abd Pelvis Wo Con dated 08/18/2021 FINDINGS: Lines: Pacemaker. Lungs: Patchy areas of airspace disease in the right lung. Pleural: No significant pleural effusions or pneumothorax. Cardiac: The heart size is within normal limits. Bones: No acute fractures. ACDF in the cervical spine. Other: IMPRESSION: Patchy airspace disease in the right lung could reflect pneumonia Conclusions/Impression: TEE likely CRS CKD III with proteinuria -No NSAIDs -Continue diuresis Hypokalemia -Replete potassium Alkalosis -Diamox 500mg q24h HTN with CKD/ CHF -Continue Coreg 6.25mg BID Diastolic CHF, A/C Acute hypoxic respiratory failure -Bumex BID -Increase Spironolactone 50mg Daily -Diamox q24H DM II with CKD -RISS Anemia -Monitor H&H Gout -Monitor UA level Case reviewed with Dr. Canas
[2021-08-22] MEDS ORDERED: SPIRONOLACTONE 25 MG TABLET PO SCH (09:00)
--- NOTE | 2021-08-22 18:09 | P.DS ---
Admission Date: 08/20/21 Discharge Date: 08/21/21 Disposition: DC HOME/HOME HEALTH CARE Discharge Condition: GOOD Reason for Admission: Fall Consultations: Nephrology - Dr. Uribe Infectious Disease - Dr. Duke Procedures: Problem List Fall acute on chornic hypoxemic respiratory failure secondary to acute on chronic diastolic CHF Elevated troponin CKD3 DM2 Brief History of Present Illness: 65yo F, PMH: chronic D-CHF, peripheral edema, chronic renal failure. Brought to ED after fall at home. Patient stated she missed a step and fell on her buttocks. She developed pain in the right hip and therefore presented to the ED. Work-up in the ED demonstrated right middle lobe opacities, TEE, and elevated troponin up to 125. Patient given IV opioid for pain, started on IV fluid and antibiotics. ED physician wishes to admit for further management. Patient complaining of peripheral edema not responding to her home diuretics. Hospital Course: Patient had improvement of her pain from her fall. Blood cultures obtained in the ER grew 1/4 bottles with gram negative rods. She was continued on IV antibiotics. She did not appear septic. Infectious disease was consulted. Repeat blood culture grew 1/4 bottles with gram positive cocci. Patient lost IV access and unable to obtain new access. Despite missing a dose of antibiotics, she continued to remain afebrile and feeling well. She reported feeling ready and wanting to be discharged home. Given the minimal and mixed results of blood cultures and how well the patient has been doing, it is felt the blood cultures were contaminants, ID agreed. Discharged home with 7 days of cefdinir per ID recommendations. She was also treated for some volume overload. Nephrology was consulted and assisted with management. She is discharged to continue spironolactone and bumex. Diamox 500mg daily was added. Follow up with PCP within 1 week Follow up with Nephrology, Dr. Uribe, in 1-2 weeks. Vital Signs/Physical Exam: Temp Pulse Resp BP Pulse Ox 97.4 F 64 16 107/59 L 100 08/21/21 16:00 08/21/21 16:00 08/21/21 16:00 08/21/21 16:00 08/21/21 16:00 Physical exam GEN: Alert, oriented HEENT: Normal conjunctiva, sclera anicteric CV: Regular rate and rhythm, trace b/l lower extremity edema to knees Pulm: Nonlabored respirations on 2L NC ABD: Soft, nontender, nondistended Neuro: Normal speech, normal affect Laboratory Data at Discharge: WBC 8.9 K/uL (4.3-10.9) 08/20/21 05:31 Hgb 10.6 g/dL (12.0-15.0) L 08/20/21 05:31 Hct 31.6 % (36.0-45.0) L 08/20/21 05:31 Plt Count 371 K/uL (152-406) 08/20/21 05:31 PT 12.8 SECONDS (9.5-12.5) H 08/18/21 10:49 INR 1.16 08/18/21 10:49 Sodium 142 mmol/L (136-145) 08/21/21 05:51 Potassium 3.5 mmol/L (3.5-5.1) 08/21/21 05:51 BUN 21 mg/dL (7-18) H 08/21/21 05:51 Creatinine 1.47 mg/dL (0.55-1.3) H 08/21/21 05:51 Glucose 92 mg/dL (74-106) 08/21/21 05:51 Uric Acid 9.6 mg/dL (2.6-6.0) H 08/20/21 05:31 Phosphorus 4.4 mg/dL (2.5-4.9) 08/21/21 05:51 Magnesium 2.2 mg/dL (1.8-2.4) 08/21/21 05:51 Total Bilirubin 0.3 mg/dL (0.2-1.0) 08/18/21 10:49 AST 12 U/L (15-37) L 08/18/21 10:49 ALT 16 U/L (12-78) 08/18/21 10:49 Alkaline Phosphatase 108 U/L (45-117) 08/18/21 10:49 Triglycerides 126 mg/dL (<150) 08/19/21 05:19 Cholesterol 125 mg/dL (<200) 08/19/21 05:19 HDL Cholesterol 26 mg/dL (40-60) L 08/19/21 05:19 Cholesterol/HDL Ratio 4.81 08/19/21 05:19 Home Medications: ALPRAZolam [Alprazolam] 0.5 mg PO TID 12/03/18 Clonidine HCl [Catapres*] 0.2 mg PO DAILY 12/03/18 Simvastatin 40 mg PO BEDTIME 12/03/18 Gabapentin [Neurontin] 600 mg PO TID 30 Days #90 tablet 01/09/21 Carvedilol [Coreg] 12.5 mg PO BID 02/04/21 Hydrocodone Bit/Acetaminophen [Hydrocodon-Acetaminophn 10-325] 1 tab PO QID 02/04/21 Aspirin [Aspirin EC 81 MG] 81 mg PO DAILY #30 tablet. 07/15/21 Bumetanide [Bumex] 2 mg PO BID 30 Days #60 tablet 08/21/21 Cefdinir [Omnicef] 300 mg PO BID 7 Days #14 capsule 08/21/21 Spironolactone [Aldactone] 50 mg PO DAILY 30 Days #30 tablet 08/21/21 acetaZOLAMIDE [Diamox] 500 mg PO DAILY 30 Days #60 tab 08/21/21 New Medications: Spironolactone [Aldactone] 50 mg PO DAILY 30 Days #30 tablet Bumetanide [Bumex] 2 mg PO BID 30 Days #60 tablet acetaZOLAMIDE [Diamox] 500 mg PO DAILY 30 Days #60 tab Cefdinir [Omnicef] 300 mg PO BID 7 Days #14 capsule Followup: William Uribe DO [ACTIVE - CAN ADMIT] - NONE,NONE [Primary Care Provider] - Time spent managing pt's care (in minutes): 45
--- NOTE | 2021-08-25 12:33 | PN ---
Subjective: The patient is lying in bed, feels much better today. No acute events since yesterday. Objective: Vital Signs: Temperature 97, pulse 61, respirations 16, blood pressure 123/58. Lungs: Basal crackles. Heart: S1, S2. Regular. Abdomen: Soft, nontender. Bowel sounds present. Extremities: No edema. Laboratory Data: WBC 8.9, hemoglobin 10.6, platelets 371. Repeat blood cultures are growing GPC. P revious cultures are gram-negative rods, still shows no growth. Most likely contamination of gram-po sitive cocci. Assessment And Plan: A 65-year-old female with questionable bacteremia with gram-negative rods. We will recommend to discontinue IV antibiotic. We will recommend the patient to start on cefdinir for 7 more days. Continue IV hydration and monitor for signs of infection. The patient can be discharge d on oral antibiotic. The patient was told if condition worsens or fevers develop, the patient is to return to the hospital. We will follow the patient closely. NF/MODL Voice ID: [id number] Report ID: [id number]
== END 2021-08-21 17:49 | disposition home health service (06) | DRG 682 ==
LOC: ER 09:54 → ERHOLD 13:01 → 2ND 20:06 → OBSVTOIN 08-20 08:11
PROVIDERS: ADMIT Internal Medicine; ATTEND Hospitalist
DX: N17.9 Acute kidney failure, unspecified (principal); J96.21 Acute and chronic respiratory failure with hypoxia; I50.33 Acute on chronic diastolic (congestive) heart failure; I13.0 Hypertensive heart and chronic kidney disease with heart failure and stage 1 through stage 4 chronic kidney disease, or unspecified chronic kidney disease; E87.3 Alkalosis; I24.8 Other forms of acute ischemic heart disease; E11.22 Type 2 diabetes mellitus with diabetic chronic kidney disease; N18.32 Chronic kidney disease, stage 3b; M25.551 Pain in right hip; M10.9 Gout, unspecified; E66.01 Morbid (severe) obesity due to excess calories; E78.5 Hyperlipidemia, unspecified; F41.9 Anxiety disorder, unspecified; I48.91 Unspecified atrial fibrillation; F17.210 Nicotine dependence, cigarettes, uncomplicated; D63.8 Anemia in other chronic diseases classified elsewhere; K21.9 Gastro-esophageal reflux disease without esophagitis; W19.XXXA Unspecified fall, initial encounter; Z95.0 Presence of cardiac pacemaker; Z68.32 Body mass index [BMI] 32.0-32.9, adult; Z86.711 Personal history of pulmonary embolism; Z86.718 Personal history of other venous thrombosis and embolism; Z20.822 Contact with and (suspected) exposure to COVID-19
CPT/HCPCS: 36415; 71045; 71250; 74176; 80048; 80061; 80069; 80076; 81003; 81015; 82805; 82947; 83735; 83880; 84100; 84484; 84550; 85025; 85610; 87040; 87077; 87086; 87088; 87186; 87205; 93005; 96361; 96365; 96375; 97110; 97161; 97530; 99285; G0378; J0456; J1170; J1644; J2185; J3010; J3490; J7030; J7040; J7050; U0003

== ENCOUNTER 2021-09-17 14:39 | Emergency (ER) | payer OTHER ==
--- OUTSIDE RECORDS SUMMARY | 2021-09-17 14:43 | XMS REPORT | Continuity of Care Document ---
:1955 Author Organization [facility] t Address [address] [place] [address] Dr. [address] [place] [address] Care Team Providers Name Role Phone Rebecca [...] cardiac 00:[place] pac[place] pac[place] 00 [facility] History of History of Disease Active U nivers bradycardi bradycardi 2-28 it y of a a 00:00: [place] [facility] Type 2 Type 2 Disease Active Univers diabetes diabetes 2-28 ity of mellitus mellitus 00:00: [place] with other with other 00 Me dical specified specified Bran ch complicati complicati on on Dyslipidem Dyslipidem Disease Active U nivers ia ia 2- ity of 00:00: Medical Branch Essential Essential Disease Active Uni vers hypertensi hypertensi 2-28 it y of on on 00:00: [place] [facility] Flash Flash Disease Active Univers pulmonary pulmonary 2- ity of edema edema 00:00: [place] [facility] UTI UTI Disease Active 2020-04 Univers (urinary (urinary 04-19 ity of tract tract 00:00: [place] infection) infection) 00 Pr dical Branch Allergies, Adverse Reactions, Alerts Allergy Allergy Status Severity Reaction(s) Onset Inactive Treating Comm ents Source Name Type Date Date Clinician TRAZODON DRUG Active Unknown-Cmnt 2020-04 Un chrissie E INGREDI 04-19 ity of 00:00: [place] 00 Medical Branch Trazodon Propensi Active Unknown [...] Univers INS Class 9-19 ity of 00:00: [place] 00 Medical Branch Social History Social Habit Start Date Stop Date Quantity Comments Source Exposure to Not sure [facility] SARS-CoV-2 (event) Medica l Branch Education 2021-06-06 2021-06-06 21 [facility] 00:00:00 00:00:00 Medical Branch Cigarettes smoked 2021-05-19 2021-05-19 [facility] current (pack per 00:00:00 00:00:00 [facility] day) - Reported Cigarette 2021-05-19 2021-05-19 [facility] pack-years 00:00:00 00:00:00 [facility] Tobacco use and 2021-05-19 2021-05-19 Never used [facility] exposure 00:00:00 00:00:00 [facility] History of tobacco 1973-04-12 2021-01-10 Smoker [facility] use 00:00:00 00:00:00 [facility] Sex Ass[birth year] At [birth year] [facility] 00:00:00 00:00:00 [facility] Smoking Status Start Date Stop Date Source Former smoker 2021-05-19 00:00:00 2021-05-19 00:00:00 [facility] Branch Medications Ordered Filled Start Stop Current [...] Medical (after Branch last modificati on) on [facility] 06/12/21 at 0900, Until Discontinu ed, Routine polyethylen Yes 17g 17 g, Unive rs e glycol 06-12 Oral, ity of 3350 powder 15:00: [place] 17 [place] 00 First dose Medical on [facility] 06/12/21 at 0900, Until Discontinu ed, Routine spironolact Yes 25mg 25 mg, Univ ers one 06-12 Oral, ity of (ALDACTONE) 15:00: [place] tablet 25 00 First dose Medi xavier mg on [facility] 06/12/21 at 0900, Until Discontinu ed, Routine bumetanide Yes 2mg 2 mg, Univer s (BUMEX) 06-12 Oral, ity of tablet 2 mg 15:00: QAM+PM, [place] as 00 First dose Medical on [facility] 06/12/21 at 0900, Until Discontinu ed, Routine amLODIPine Yes 5mg 5 mg, Univer s (NORVASC) 3 Oral, ity of tablet 5 mg 15:00: [place] 00 First dose Medical (after Branch last modificati on) on [facility] 06/12/21 at 0900, Until Discontinu ed, [...] Medical times Branch daily. nystatin 2021- No [id number] Apply Univ ers 100,000 06-12 /[oz_av 100,000 [...] ity of tablet 14:18: 00:00 mouth 3 [place] 43 :00 (three) Medical times Branch daily. simvastatin 2021- No 40mg Take 40 mg Univers 20 mg 06-12-03 by mouth ity of tablet 14:18: 00:00 at [place] 43 :00 bedtime. Medical Branch carvediloL 2021- [...] in powder 4-6 oz of water cloNIDine .2mg Take 0.2 Uni vers 0.2 mg 06-12 03-03 mg by ity of tablet 14:18: 00:00 mouth [place] 43 :00 every 8 Medical (eight) Branch hours as needed (HTN crisis). BP SBP>170 vitamin C 2021- No 100mg Take 100 Un chrissie (VITAMIN C) 06-12 03-03 mg by ity of 100 mg 14:18: 00:00 mouth [place] tablet 43 :00 daily. Medical Branch ferrous No 325mg Take 325 Univ ers sulfate 325 06-12-03 mg by ity of mg (65 mg [...] at 2030, For 1 dose cyanocobala 2021- No 1000ug 1,000 mcg, Univers min 06-12-09 Subcutaneo [...] Medical times Branch daily. furosemide 2021-0 Yes [id number] 20mg Take 1 U nivers 20 mg [...] Medical VITAMIN-MIN Branch ERALS) tablet nystatin Yes [id number] Apply Unive rs 100,000 3-03 /[oz_av 100,000 [...] (two) Medical times Branch daily. furosemide Yes [id number] 20mg Take 1 U nivers 20 mg [...] Medical VITAMIN-MIN Branch ERALS) tablet nystatin Yes [id number] Apply Unive rs 100,000 3-03 /[oz_av 100,000 [...] First dose [place] mg 00 on Wed [facility] 06/11/21 at Branch 0915, Until Discontinu ed, [...] ity o f powder 02:00: dose on [place] 00 [facility] 06/09/21 at Branch 2000, Until Discontinu ed, Routine amLODIPine 2021- No 10mg 10 mg, Univ ers (NORVASC) 06-08 Oral, ity of tablet 10 20:00: 14:28 DAILY, [place] mg 00 :42 First dose Medical on [facility] 06/08/21 at 1400, Until Discontinu ed, Routine simvastatin Yes 40mg 40 mg, Univ ers (ZOCOR) 06-08 Oral, QHS, ity of tablet 40 03:00: [place] dose [place] 00 on [facility] 06/07/21 at Branch 2100, Until Discontinu ed, Routine DULoxetine 2021- No 30mg 30 mg, Univ ers (CYMBALTA) 06-07 0303 Oral, QPM, it y of capsule 30 23:00: 00:03 First dose [place] mg 00 :40 on [facility] 06/07/21 at Branch 1700, Until Discontinu ed, Routine enoxaparin Yes 40mg 40 mg, Unive rs (LOVENOX) 06-07 Subcutaneo ity of injection 15:00: [place], DAILY, [place] 40 mg 00 First dose Medical on [facility] 06/07/21 at 0900, Until Discontinu ed, Routine furosemide 2021- No 40mg 40 mg, Univ ers (LASIX) 06-07 Slow IV ity of injection 15:00: 13:50 Push, [place] 40 mg 00 :25 DAILY, Medical First dose Branch on [facility] 06/07/21 at 0900, Until Discontinu ed, Routine gabapentin Yes 600mg 600 mg, Uni vers (NEURONTIN) 06-07 Oral, TID, it y of capsule 600 14:00: First dose [place] mg 00 on [facility] Medical 06/07/21 at Branch 0800, Until Discontinu ed, Routine ferrous No 325mg 325 mg, Unive rs sulfate 06-07 Oral, TID ity of tablet 325 14:00: 14:51 MEALS, [place] mg 00 :04 First dose Medical on [facility] 06/07/21 at 0800, Until Discontinu ed, Routine carvediloL No 12.5mg 12.5 mg, Univers (COREG) 06-07 Oral, BID ity of tablet 12.5 14:00: 14:49 MEALS, [place] as mg 00 :12 First dose Medical on [facility] 06/07/21 at 0800, Until Discontinu ed, Routine hydrALAZINE 2021- No 25mg 25 mg, Uni vers (APRESOLINE 06-07 Oral, ity of ) tablet 25 14:00: 15:30 Q12H, [place] mg 00 :38 First dose Medical on [facility] 06/07/21 at 0800, Until Discontinu ed, Routine polyethylen Yes 17g 17 g, Unive rs e glycol 06-07 Oral, ity of 3350 powder 10:19: [id number], [place] 17 g 44 Starting Medical on [facility] 06/07/21 at 0419, Until Discontinu ed, Constipati [...] of 2 % 17:30: 16:32 l (Apply [place] ointment 1 00 :00 To Skin), Medi xavier Inch ONCE, 1 Branch dose, On 06/06/21 at 1130, BHUMI nystatin Yes [id number] Apply Unive rs 100,000 2-07 /[oz_av 100,000 ity of unit/gram 15:51: ] Units/oz [place] powder 56 to area(s) Medical 2 (two) Branch times daily. Apply under breast and abdomen folds topically for yeast related to candidiasi s furosemide Yes [id number] 20mg Take 1 U nivers 20 mg 1-18 tablet by ity of tablet 00:00: mouth [place] 00 every Medical morning. Branch furosemide 2021- No [id number] 20mg Take 1 Univers 20 mg 1-18 [...] Immunizations Ordered Filled Immunization Date Status Comments [facility] e Immunization Name Name PPD (TB) 2021-02-04 Completed [facility] 00:00:00 [facility] PPD (TB) 2021-02-04 Completed [facility] 00:00:00 [facility] SARS-COV-2 COVID-19 2020-07-10 Completed Unive rsity of [email or web address] VACCINE 00:00:00 [facility] SARS-COV-2 COVID-19 2020-07-10 Completed Unive rsity of [email or web address] VACCINE 00:00:00 [facility] SARS-COV-2 COVID-19 2020-06-12 Completed Unive rsity of [employer] VACCINE 00:00:00 [facility] SARS-COV-2 COVID-19 2020-06-12 Completed Unive rsity of PFIZER VACCINE 00:00:00 [facility] Influenza High Dose 2020-01-07 Completed Unive rsity of 00:00:00 [facility] Influenza High Dose 2020-01-07 Completed Unive rsity of 00:00:00 [facility] Influenza High Dose 2020-01-07 Completed Unive rsity of 00:00:00 [facility] Vital Signs Vital Name Observation Time Observation Value Comments Source Systolic blood 2021-06-12 107 mm[Hg] University of pressure 21:47:00 [facility] Diastolic blood 2021-06-12 68 mm[Hg] University o f pressure 21:47:00 [facility] Heart rate 2021-06-12 62 /min University of 21:47:00 [facility] Body temperature 2021-06-12 36 Mari University of 21:47:00 [facility] Respiratory rate 2021-06-12 16 /min University of 21:47:00 [facility] Oxygen saturation 2021-06-12 96 /min [facility] in Arterial blood 21:47:00 [facility] by Pulse oximetry [place] Body weight 2021-06-11 81.602 kg University of 09:36:00 [facility] BMI 2021-06-11 35.13 kg/m2 University of 09:36:00 [facility] Body height 2021-06-08 152.4 cm University of 18:59:00 [facility] Systolic blood 2021-05-19 185 mm[Hg] pt unsure she University o f pressure 21:47:00 [facility] her med[facility] Diastolic blood 2021-05-19 75 mm[Hg] pt unsure she University of pressure 21:47:00 got her meds a [facility] Heart rate 2021-05-19 81 /min University of 21:47:00 [facility] Body temperature 2021-05-19 36 Mari University of 21:47:00 [facility] Body height 2021-05-19 152.4 cm University of 21:47:00 [facility] Body weight 2021-05-19 95.255 kg University of 21:47:00 [facility] BMI 2021-05-19 41.01 kg/m2 [facility] 21:47:00 [facility] Procedures Procedure Date / Time Performing Clinician Source Performed COVID-19 (ID NOW RAPID 2021-06-12 21:23:00 Braeden Hollis [facility] TESTING) [facility] BASIC METABOLIC PANEL 2021-06-12 12:15:00 Braeden Hollis [facility] (NA, K, CL, CO2, GLUCOSE, Medica l Branch BUN, CREATININE, CA) CBC WITH DIFF 2021-06-12 12:15:00 Braeden Hollis [facility] N-TERMINAL PRO-BNP 2021-06-12 12:15:00 Braeden Hollis [facility] POCT GLUCOSE (AUTOMATED) 2021-06-11 17:48:00 Timmy Buenrostro [facility] PHOSPHORUS 2021-06-11 11:12:00 [facility] MAGNESIUM 2021-06-11 11:12:00 [facility] BASIC METABOLIC PANEL 2021-06-11 11:12:00 Braeden Hollis [facility] (NA, K, CL, CO2, GLUCOSE, Medica l Branch BUN, CREATININE, CA) CBC WITH DIFF 2021-06-11 11:12:00 Braeden Hollis [facility] GLYCOSYLATED HEMOGLOBIN 2021-06-11 11:12:00 Braeden Hollis [facility] (A1C) [facility] N-TERMINAL PRO-BNP 2021-06-11 11:12:00 Braeden Hollis [facility] POCT GLUCOSE (AUTOMATED) 2021-06-11 02:10:00 Timmy Buenrostro [facility] POCT GLUCOSE (AUTOMATED) 2021-06-10 22:52:00 Timmy Buenrostro [facility] POCT GLUCOSE (AUTOMATED) 2021-06-10 17:48:00 Timmy Buenrostro [facility] HB ECG ROUTINE & RHYTHM 2021-06-10 15:56:12 Terri Razo [facility] POCT GLUCOSE (AUTOMATED) 2021-06-10 13:59:00 Timmy Buenrostro [facility] CBC WITH DIFF 2021-06-10 13:54:00 [facility]OLIC [facility]EL 2021-06-10 11:59:00 [facility] (NA, K, CL, CO2, GLUCOSE, Medica l Branch BUN, CREATININE, CA) LIPID PANEL (09053)(TOTAL 2021-06-10 11:59:00 Terri Razo.H Chitra [facility] CHOLESTEROL, [facility] TRIGLYCERIDES, HDL) N-TERMINAL PRO-BNP 2021-06-10 11:59:00 Terri Razo.HChitra [facility] MISCELLANEOUS CULTURE 2021-06-09 23:46:00 [facility] 2021-06-09 18:55:00 Sanjeev [facility] PROTEIN TOTAL 2021-06-09 18:55:00 Sanjeev [facility] LACTATE DEHYDROGENASE 2021-06-09 18:55:00 Timmy Buenrostro [facility] BASIC METABOLIC PANEL 2021-06-09 10:54:00 [facility] (NA, K, CL, CO2, GLUCOSE, Medica l Branch BUN, CREATININE, CA) CBC WITH DIFF 2021-06-09 10:54:00 Daniella Benavides [facility] XR CHEST 1 VW 2021-06-09 01:18:34 Timmy Buenrostro [facility] TRANSTHORACIC ECHO (TTE) 2021-06-08 18:58:57 Concetta Connolly [facility] VITAMIN B12, LEVEL 2021-06-08 10:25:00 William Johnson [facility] FOLATE 2021-06-08 10:25:00 William Johnson [facility] BASIC METABOLIC PANEL 2021-06-08 10:25:00 Daniella Benavides [facility] (NA, K, CL, CO2, GLUCOSE, Medica l Branch BUN, CREATININE, CA) IRON PANEL 2021-06-08 10:25:00 William Johnson [facility] CBC WITH DIFF 2021-06-08 10:25:00 Daniella Benavides [facility] PROCALCITONIN 2021-06-08 10:25:00 Concetta Connolly [facility] MAGNESIUM 2021-06-07 12:22:00 Timmy Buenrostro [facility] BASIC METABOLIC PANEL 2021-06-07 12:22:00 Timmy Buenrostro [facility] (NA, K, CL, CO2, GLUCOSE, Medica l Branch BUN, CREATININE, CA) CBC WITH DIFF 2021-06-07 12:21:00 Sanjeev [facility] MISCELLANEOUS CULTURE 2021-06-06 22:06:00 Benjamin Rivera [facility] AC PANEL 20 + LACTIC ACID 2021-06-06 19:53:00 Benjamin Rivera [facility] ACUTE CARE ARTERIAL BLOOD 2021-06-06 19:33:00 Benjamin Rivera [facility] ACUTE CARE ARTERIAL BLOOD 2021-06-06 18:52:00 Benjamin Rivera [facility] XR CHEST 1 VW 2021-06-06 17:29:44 Singer [facility] NOTICE OF PRIVACY 2021-06-06 17:09:39 Doctor Unaleightonigned, [facility] PRACTICES [place] [facility] [place] CONSENT/REFUSAL FOR 2021-06-06 17:09:18 Doctor Unassisidoro, [facility] DIAGNOSIS AND TREATMENT [place] [facility] [place] CBC WITH DIFF 2021-06-06 17:02:00 Singer Benjamin [facility] COVID-19 (ID NOW RAPID 2021-06-06 16:34:00 Singer Benjamin [facility] TESTING) Medical Branch LAB ONLY COVID 2021-06-06 16:34:00 Singer [facility] INTERPRETATION [facility] TROPONIN I 2021-06-06 16:33:00 Singer [facility] COMP. METABOLIC PANEL 2021-06-06 16:33:00 Benjamin Rivera [facility] ([id number]) [facility] N-TERMINAL PRO-BNP 2021-06-06 16:33:00 Benjamin Rivera y [facility] AC PANEL 20 + LACTIC ACID 2021-06-06 16:32:00 Benjamin Rivera [facility] EXTERNAL PROVIDER RECORDS 2021-06-06 06:01:00 Doctor Unassigned, [facility] [place] [facility] EMERGENCY DEPARTMENT 2021-06-06 06:01:00 Doctor Unassigned, [facility] DOCUMENTS [place] [facility] Encounters Start End Encounter Admission Attending Care Care Encounter Source Date/Time Date/Time Type Type Clinicians Facility Department ID 2021-06-13 2021-06-13 Transition NOEMI Alejandra [id number] Univers 00:00:00 00:00:00 of Care Aviva SPRINGER [id number] it y [facility] [id number] [id number] [facility] 403 Branch 2021-06-06 2021-06-12 Inpatient X SANJEEV [facility] [id number] Univers 10:14:00 16:00:00 TIMMY itsheila [facility] 2021-06-06 2021-06-12 Hospital RiveraBenjamin [facility] [id number] Univers 10:14:00 16:00:00 Encounter Timmy Buenrostro [id number] ity [facility] 4.2.7.2.686 [place] [id number] [facility] 081 Branch 2021-06-05 2021-06-05 [facility] [id number] Univers 08:30:00 08:30:00 MEMO [id number] ity [facility] 2021-05-19 2021-05-19 Office MYRTLE Montoya [id number] Univers 15:30:00 16:00:00 Visit [facility] [id number] ity of [facility] 4.2.7.2.686 [place] [id number] [facility] 205 Branch 2021-05-19 2021-05-19 Outpatient Maude MONTOYA [facility] [id number] Univers 15:30:00 15:30:00 CAT sheila [facility] 2021-01-28 2021-01-28 Outpatient [facility] [id number] [place] 00:00:00 00:00:[address] 2021-01-10 2021-01-17 Inpatient [facility] 064 [id number] [place] 00:00:00 00:00:00 LADAN [address] 2020-12-31 2020-12-31 Outpatient [facility] 090 [id number] [place] 00:00:00 00:00:[address] 2020-12-11 2020-12-11 Outpatient [facility] [id number] [place] 00:00:00 00:00:[address] 2020-09-05 2020-09-05 Outpatient [facility] 725 [id number] [place] 00:00:00 00:00:[address] 2020-09-05 2020-09-05 Outpatient [facility] [id number] [place] 00:00:00 00:00:[address] 2020-09-05 2020-09-05 Outpatient [facility] [id number] [place] 00:00:00 00:00:[address] 2020-09-05 2020-09-05 Outpatient [facility] [id number] [place] 00:00:00 00:00:[address] 2020-08-14 2020-08-14 Outpatient [facility] [id number] [place] 00:00:00 00:00:[address] 2020-07-04 2020-07-04 Outpatient [facility] 003 [id number] [place] 00:00:00 00:00:[address] 2020-07-04 2020-07-04 Outpatient [facility] [id number] [place] 00:00:00 00:00:[address] 2020-06-04 2020-06-04 Outpatient [facility] [id number] [place] 00:00:00 00:00:[address] 2019-11-24 2019-11-24 Outpatient MARLENE, [facility] [id number] [place] 00:00:00 00:00:00 WILFRED [address] 2019-11-22 2019-11-22 Outpatient MARLENE, [facility] [id number] [place] 00:00:00 00:00:00 WILRFED [address] 2019-11-07 2019-11-07 Outpatient MARLENE, [facility] [id number] [place] 00:00:00 00:00:00 WILFRED 940 Method i 2019-11-07 2019-11-07 Outpatient MARLENE, [facility] [id number] [place] 00:00:00 00:00:00 WILFRED 515 Method i 2019-11-07 2019-11-07 Outpatient MARLENE, [facility] [id number] [place] 00:00:00 00:00:00 WILFRED 681 Method i 2019-06-09 2019-06-12 Inpatient LAVON, [place] [id number] [place] 00:00:00 00:00:00 SRINIVASAN [address] 2019-05-28 2019-06-01 Inpatient DADA, [facility] 060 [id number] [place] 00:00:00 00:00:00 LUANN [address] 2019-02-24 2019-02-24 Outpatient MARLENE, [facility] [id number] [place] 00:00:00 00:00:00 WILFRED [address] Results Test Description Test Time Test Comments Results Result Comments Source N-TERMINAL PRO-BNP 2021-06-12 14:17:01 Test Item Value Reference Range Interpretation Comme nts NT-proBNP (test code = 406 pg/mL See_Comment H [Aut omated message] The 2513884826) system which ge nerated this result tra nsmitted reference range : <=125. The reference r mara was not used to int erpret this result as ayesha l/abnormal. GRACE (test code = GRACE) Biotin has been reported to cause a negative bias, interpret results relative to patient's use of biotin. Lab Interpretation (test Abnormal code = 73529-0) [facility] METABOLIC PANEL (NA, K, CL, CO2, GLUCOSE, BUN, CREATININE, CA)2021-06-12 14:09:03 Test Item Value Reference Range Interpretation Comments NA (test code = 141 mmol/L 135-145 4999228614) K (test code = 4.1 mmol/L 3.5-5.0 8594926646) CL (test code = 98 mmol/L 98-108 9120465295) CO2 TOTAL (test code = 35 mmol/L 23-31 H 1556184356) AGAP (test code = 2-16 9930997135) BUN (test code = 37 mg/dL 7-23 H 1403921913) GLUCOSE (test code = 151 mg/dL 70-110 H 9128613390) CREATININE (test code = 1.02 mg/dL 0.50-1.04 5605797432) CALCIUM (test code = 8.5 mg/dL 8.6-10.6 L 9057160769) eGFR (test code = mL/min/1.73m2 4577706017) GRACE (test code = GRACE) Association of [...] tests). Lab Interpretation Abnormal (test code = 88205-5) [facility] WITH [id number] 13:28:37 Test Item Value Reference Range Interpretation [...] (test code = 56.9 fL 39.0-49.9 H 60833-9) RDW-CV (test code = 17.0 % 12.0-15.5 H 788-0) PLT (test code = See_Comment [Automated 777-3) message] The sy stem which generated this result transmitted reference range : 166 - 358 10*3/ ?L. The reference r mara was not used to interpret this result as normal/abnormal . MPV (test code = 11.9 fL 9.5-12.9 55026-4) NRBC/100 WBC (test See_Comment [Automat ed code = 5175412122) message] The system which generated this result transmitted reference range : 0.0 - 10.0 /100 WBCs. The refer ence range was not u sed to interpret th is result as normal/abnormal . NRBC x10^3 (test code <0.01 See_Comment [Auto mated = 6195360457) message] The s ystem which generated this result transmitted reference range : 10*3/?L. The reference range was not used to interpret this result as normal/abnormal . GRAN MAT (NEUT) % 53.8 % (test code = 770-8) IMM GRAN % (test code 0.10 % = 9082735025) LYMPH % (test code = 32.4 % 736-9) MONO % (test code = 8.1 % 5905-5) EOS % (test code = 4.9 % 713-8) BASO % (test code = 0.7 % 706-2) GRAN MAT x10^3(ANC) 3.92 10*3/uL 1.88-7.09 (test code = 0187078929) IMM GRAN x10^3 (test <0.03 0.00-0.06 code = 1121388722) LYMPH x10^3 (test code 2.36 10*3/uL 1.32-3.29 = 731-0) MONO x10^3 (test code 0.59 10*3/uL 0.33-0.92 = 742-7) EOS x10^3 (test code = 0.36 10*3/uL 0.03-0.39 711-2) BASO x10^3 (test code 0.05 10*3/uL 0.01-0.07 = 704-7) Lab Interpretation Abnormal (test code = 68431-6) [facility] [id number] 20:53:29 Test Item Value Reference Range Interpretation Comments VIT B12 (test code = 309 pg/mL 240-930 8192611082) GRACE (test code = GRACE) Biotin has been reported to cause a positive bias, interpret results relative to patient's use of biotin. Lab Interpretation (test Normal code = 22197-2) [facility] (A1C)2021-06-11 18:26:31 Test Item Value Reference Range Interpretation Comments HGB A1C (test code = 5.2 % 4.0-5.7 4548-4) GRACE (test code = GRACE) Reference RangesNormal: <5.7%Prediabetes: 5.7 - 6.4%Diabetes: > 6.5% Lab Interpretation (test Normal code = 26892-5) [facility]2021-06-11 18:06:22 Test Item Value Reference Range Interpretation Comments POCT GLU (test code = 1560206956) 100 mg/dL 70-110 Lab Interpretation (test code = Normal 07264-8) [facility]22-[facility]-02 17:41:06 Test Item Value Reference Range Interpretation Comments FOLATE SER (test code = 5781192364) 6.4 ng/mL 3.0-20.0 Lab Interpretation (test code = Normal 22034-0) [facility] [id number] 16:42:15 Test Item Value Reference Range Interpretation Comments IRON (test code = 7297830754) 40 ug/dL 50-160 L TIBC (test code = 0410667751) 314 ug/dL 250-410 % FE SAT (test code = 9978592817) 13 % 20-50 L Lab Interpretation (test code = Abnormal 42666-0) [facility] (NA, K, CL, CO2, GLUCOSE, BUN, CREATININE, CA)2021-06-11 12:12:21 Test Item Value Reference Range Interpretation Comments NA (test code = 143 mmol/L 135-145 9155370984) K (test code = 3.9 mmol/L 3.5-5.0 8542298844) CL (test code = 100 mmol/L 98-108 9743469618) CO2 TOTAL (test code = 36 mmol/L 23-31 H 2229838810) AGAP (test code = 2-16 4070483408) BUN (test code = 34 mg/dL 7-23 H 4982780612) GLUCOSE (test code = 89 mg/dL 70-110 6148355227) CREATININE (test code = 1.25 mg/dL 0.50-1.04 H 8135137420) CALCIUM (test code = 8.2 mg/dL 8.6-10.6 L 4196577084) eGFR (test code = mL/min/1.73m2 7501674058) GRACE (test code = GRACE) Association of [...] tests). Lab Interpretation Abnormal (test code = 52768-0) [id number] 12:12:01 Test Item Value Reference Range Interpretation Comments NT-proBNP (test code 703 pg/mL See_Comment H [Autom ated = 7767605660) message] The system which generated this result transmitted reference range : <=125. The reference range was not used to interpret this result as normal/abnormal . GRACE (test code = GRACE) Biotin has been reported to cause a negative bias, interpret results relative to patient's use of biotin. Lab Interpretation Abnormal (test code = 70686-6) [facility] 12:05:57 Test Item Value Reference Range Interpretation Comments MAGNESIUM (test code = 1798639269) 1.9 mg/dL 1.7-2.4 Lab Interpretation (test code = Normal 42437-8) [facility] 12:05:40 Test Item Value Reference Range Interpretation Comments PHOSPHORUS (test code = 6439706375) 4.4 mg/dL 2.5-5.0 Lab Interpretation (test code = Normal 01413-6) [facility] WITH [id number] 11:43:55 Test Item Value Reference Range Interpretation [...] (test code = 57.6 fL 39.0-49.9 H 56457-4) RDW-CV (test code = 17.0 % 12.0-15.5 H 788-0) PLT (test code = See_Comment [Automated 777-3) message] The sy stem which generated this result transmitted reference range : 166 - 358 10*3/ ?L. The reference r mara was not used to interpret this result as normal/abnormal . MPV (test code = 11.2 fL 9.5-12.9 13160-1) NRBC/100 WBC (test See_Comment [Automat ed code = 0862399111) message] The system which generated this result transmitted reference range : 0.0 - 10.0 /100 WBCs. The refer ence range was not u sed to interpret th is result as normal/abnormal . NRBC x10^3 (test code <0.01 See_Comment [Auto mated = 2876168173) message] The s ystem which generated this result transmitted reference range : 10*3/?L. The reference range was not used to interpret this result as normal/abnormal . GRAN MAT (NEUT) % 51.0 % (test code = 770-8) IMM GRAN % (test code 0.30 % = 6710398255) LYMPH % (test code = 34.5 % 736-9) MONO % (test code = 10.3 % 5905-5) EOS % (test code = 3.6 % 713-8) BASO % (test code = 0.3 % 706-2) GRAN MAT x10^3(ANC) 4.93 10*3/uL 1.88-7.09 (test code = 3289527242) IMM GRAN x10^3 (test 0.03 10*3/uL 0.00-0.06 code = 7832826317) LYMPH x10^3 (test code 3.34 10*3/uL 1.32-3.29 H = 731-0) MONO x10^3 (test code 1.00 10*3/uL 0.33-0.92 H = 742-7) EOS x10^3 (test code = 0.35 10*3/uL 0.03-0.39 711-2) BASO x10^3 (test code 0.03 10*3/uL 0.01-0.07 = 704-7) Lab Interpretation Abnormal (test code = 34685-2) [facility] GLUCOSE (AUTOMATED)2021-06-11 11:12:24 Test Item Value Reference Range Interpretation Comments POCT GLU (test code = 7464239500) 108 mg/dL 70-110 Lab Interpretation (test code = Normal 45844-8) [facility] GLUCOSE (AUTOMATED)2021-06-11 02:42:55 Test Item Value Reference Range Interpretation Comments POCT GLU (test code = 7901871982) 178 mg/dL 70-110 H Lab Interpretation (test code = Abnormal 36231-4) [facility] GLUCOSE (AUTOMATED)2021-06-10 23:20:52 Test Item Value Reference Range Interpretation Comments POCT GLU (test code = 9855910481) 120 mg/dL 70-110 H Lab Interpretation (test code = Abnormal 89530-4) [facility] GLUCOSE (AUTOMATED)2021-06-10 18:06:15 Test Item Value Reference Range Interpretation Comments POCT GLU (test code = 7056251606) 92 mg/dL 70-110 Lab Interpretation (test code = Normal 63494-4) [facility] WITH [id number] 14:57:57 Test Item Value Reference Range Interpretation [...] (test code = 57.7 fL 39.0-49.9 H 84281-7) RDW-CV (test code = 17.0 % 12.0-15.5 H 788-0) PLT (test code = See_Comment [Automated 777-3) message] The sy stem which generated this result transmitted reference range : 166 - 358 10*3/ ?L. The reference r mara was not used to interpret this result as normal/abnormal . MPV (test code = 11.0 fL 9.5-12.9 69945-8) NRBC/100 WBC (test See_Comment [Automat ed code = 7577382460) message] The system which generated this result transmitted reference range : 0.0 - 10.0 /100 WBCs. The refer ence range was not u sed to interpret th is result as normal/abnormal . NRBC x10^3 (test code <0.01 See_Comment [Auto mated = 0965524694) message] The s ystem which generated this result transmitted reference range : 10*3/?L. The reference range was not used to interpret this result as normal/abnormal . GRAN MAT (NEUT) % 51.8 % (test code = 770-8) IMM GRAN % (test code 0.40 % = 2119738014) LYMPH % (test code = 33.5 % 736-9) MONO % (test code = 10.2 % 5905-5) EOS % (test code = 3.7 % 713-8) BASO % (test code = 0.4 % 706-2) GRAN MAT x10^3(ANC) 6.38 10*3/uL 1.88-7.09 (test code = 6069531679) IMM GRAN x10^3 (test 0.05 10*3/uL 0.00-0.06 code = 2330600851) LYMPH x10^3 (test code 4.12 10*3/uL 1.32-3.29 H = 731-0) MONO x10^3 (test code 1.25 10*3/uL 0.33-0.92 H = 742-7) EOS x10^3 (test code = 0.45 10*3/uL 0.03-0.39 H 711-2) BASO x10^3 (test code 0.05 10*3/uL 0.01-0.07 = 704-7) BASO STIPPLING (test Present A code = 703-9) REACT LYMPHS (test Rare code = 8227961472) Lab Interpretation Abnormal (test code = 69549-5) [facility] [id number] 13:13:32 Test Item Value Reference Range Interpretation Comments NT-proBNP (test code 1310 pg/mL See_Comment H [Autom ated = 9844911275) message] The system which generated this result transmitted reference range : <=125. The reference range was not used to interpret this result as normal/abnormal . GRACE (test code = GRACE) Biotin has been reported to cause a negative bias, interpret results relative to patient's use of biotin. Lab Interpretation Abnormal (test code = 60938-0) [facility]wall[facility]IP[facility] (16181)(TOTAL CHOLESTEROL, TRIGLYCERIDES, HDL)2021-06-10 13:05:49 Test Item Value Reference Range Interpretation Comments CHOL (test code = 180 mg/dL 120-200 6223074662) HDL (test code = 38 mg/dL >50 L 9123936821) HDLC RATIO (test code = See_Comment H [Au tomated message] 0161999157) The system backstitch generated this result transmit masoud reference range : <=4.5. The refe rence range was not u sed to interpret th is result as normal/abnormal . TRIG (test code = 88 mg/dL 30-170 5174423333) LDL CHOL (test code = 124 mg/dL See_Comment [Auto mated message] 26996-7) The system backstitch generated this result transmit masoud reference range : <=160. The refe rence range was not u sed to interpret th is result as normal/abnormal . VLDL (test code = 18 mg/dL 5-60 1703856651) Lab Interpretation (test Abnormal code = 29164-4) [facility] (NA, K, CL, CO2, GLUCOSE, BUN, CREATININE, CA)2021-06-10 13:05:49 Test Item Value Reference Range Interpretation Comments NA (test code = 142 mmol/L 135-145 7255963566) K (test code = 4.2 mmol/L 3.5-5.0 8266709990) CL (test code = 100 mmol/L 98-108 3660950522) CO2 TOTAL (test code = 36 mmol/L 23-31 H 3759535243) AGAP (test code = 2-16 7465305480) BUN (test code = 29 mg/dL 7-23 H 3532764057) GLUCOSE (test code = 82 mg/dL 70-110 4907820336) CREATININE (test code = 0.97 mg/dL 0.50-1.04 0402757242) CALCIUM (test code = 8.4 mg/dL 8.6-10.6 L 2363357651) eGFR (test code = mL/min/1.73m2 4340703578) GRACE (test code = GRACE) Association of [...] tests). Lab Interpretation Abnormal (test code = 50022-2) [facility], [id number] 19:32:21 Test Item Value Reference Range Interpretation Comments GLUCOSE (test code = 6384178848) 133 mg/dL 70-110 H Lab Interpretation (test code = Abnormal 51249-1) [facility]wall[facility] Total [id number] 19:32:21 Test Item Value Reference Range Interpretation Comments T PROTEIN (test code = 1106289658) 7.0 g/dL 6.3-8.2 Lab Interpretation (test code = Normal 35154-4) [facility]CTATE [id number] 19:32:21 Test Item Value Reference Range Interpretation Comments LDH (test code = 4729144642) 386 U/L 300-600 Lab Interpretation (test code = Normal 04468-6) [facility] (NA, K, CL, CO2, GLUCOSE, BUN, CREATININE, CA)2021-06-09 12:45:24 Test Item Value Reference Range Interpretation Comments NA (test code = 141 mmol/L 135-145 3214625443) K (test code = 4.1 mmol/L 3.5-5.0 6154631726) CL (test code = 103 mmol/L 98-108 0601999988) CO2 TOTAL (test code = 34 mmol/L 23-31 H 6990104014) AGAP (test code = 2-16 5384395521) BUN (test code = 27 mg/dL 7-23 H 2313199972) GLUCOSE (test code = 73 mg/dL 70-110 0694720314) CREATININE (test code = 0.97 mg/dL 0.50-1.04 7035197405) CALCIUM (test code = 8.1 mg/dL 8.6-10.6 L 8298057561) eGFR (test code = mL/min/1.73m2 8418904141) GRACE (test code = GRACE) Association of [...] tests). Lab Interpretation Abnormal (test code = 76634-1) [facility] WITH [id number] 12:25:41 Test Item Value Reference Range Interpretation [...] (test code = 58.1 fL 39.0-49.9 H 38071-0) RDW-CV (test code = 17.2 % 12.0-15.5 H 788-0) PLT (test code = See_Comment [Automated 777-3) message] The sy stem which generated this result transmitted reference range : 166 - 358 10*3/ ?L. The reference r mara was not used to interpret this result as normal/abnormal . MPV (test code = 12.0 fL 9.5-12.9 29655-8) NRBC/100 WBC (test See_Comment [Automat ed code = 9563585965) message] The system which generated this result transmitted reference range : 0.0 - 10.0 /100 WBCs. The refer ence range was not u sed to interpret th is result as normal/abnormal . NRBC x10^3 (test code <0.01 See_Comment [Auto mated = 8481803859) message] The s ystem which generated this result transmitted reference range : 10*3/?L. The reference range was not used to interpret this result as normal/abnormal . GRAN MAT (NEUT) % 58.9 % (test code = 770-8) IMM GRAN % (test code 0.40 % = 9781676266) LYMPH % (test code = 27.3 % 736-9) MONO % (test code = 9.5 % 5905-5) EOS % (test code = 3.6 % 713-8) BASO % (test code = 0.3 % 706-2) GRAN MAT x10^3(ANC) 5.79 10*3/uL 1.88-7.09 (test code = 2505559026) IMM GRAN x10^3 (test 0.04 10*3/uL 0.00-0.06 code = 4099074778) LYMPH x10^3 (test code 2.68 10*3/uL 1.32-3.29 = 731-0) MONO x10^3 (test code 0.93 10*3/uL 0.33-0.92 H = 742-7) EOS x10^3 (test code = 0.35 10*3/uL 0.03-0.39 711-2) BASO x10^3 (test code 0.03 10*3/uL 0.01-0.07 = 704-7) Lab Interpretation Abnormal (test code = 94196-7) [facility] ([facility]E)2021-06-08 20:49:41 Test Item Value Reference Range Interpretation Comments LVOT stroke volume (test 74.80 cm3 code = 0863994332) EF(Teich) (test code = 54.40 % 9495792464) LVIDD (test code = 5.90 cm 5811189172) LVIDS (test code = 4.20 cm 7622712852) IVS (test code = 1.08 cm 2359664643) LVPWD (test code = 1.13 cm 9457073190) LVOT diameter (test code 1.99 cm = 5673729840) FS (test code = 29 % 6284848561) MV Peak E Kaushal (test code 103.0 cm/s = 3372590680) MV Peak A Kaushal (test code 96.3 cm/s = 6712136183) E/A ratio (test code = ratio 4971829550) E wave decelartion time 0.20 s (test code = 1466961372) LVOT peak kaushal (test code 125.8 cm/s = 3427328177) LVOT mn grad (test code = mmHg 9674035868) LAV(MOD-sp2) (test code = 114.00 mL 5357621638) Aortic valve mean 116.4 cm/s velocity (test code = 6714790429) Ao peak kaushal (test code = 185.4 cm/s 8775785826) Ao VTI (test code = 34.4 cm 2847005712) AV LVOT peak gradient mmHg (test code = 4278750910) LVOT peak VTI (test code 24.1 cm = 9615388832) AV area by cont VTI (test 2.2 cm2 code = 8165741082) AV area peak kaushal (test 2.1 cm2 code = 4519793367) LV V1 mean (test code = 77.20 cm/s 1383580754) Ao max PG (test code = 13.80 mm[Hg] 7905730758) MV stenosis pressure 1/2 60.0 ms time (test code = 6515059503) MV dec slope (test code = 508.00 cm/s2 9347525255) MV Prop V (test code = 69.30 cm/s 2531094485) AV peak gradient (test mmHg code = 3457587698) AV valve area (test code 2.17 cm2 = 5810447507) AV mean gradient (test mmHg code = 9050452882) PW (test code = 1.13 cm 0.6-1.0 9654223220) EF - 2D (test code = 54.40 % 38671377) Interventricular Septum 1.08 cm Diastolic Thickness by 2D (test code = 5917770) Radiology Study observation (narrative) (test code = 18101-8) GRACE (test code = GRACE) ?Left?Ventricle: Left [...] (86.6 kg) 1.91 sq meters 135/70 80 [facility]ALCITONIN2022-02-27 18:13:13 Test Item Value Reference Range Interpretation Comments Procalcitonin (test 0.28 ng/mL <0.07 H code = 0481309017) GRACE (test code = GRACE) INTERPRETATION OF [...] lung abscess/empyema. For further information please refer to:[email or web address] Lab Interpretation Abnormal (test code = 63344-5) [facility] METABOLIC PANEL (NA, K, CL, CO2, GLUCOSE, BUN, CREATININE, CA)2021-06-08 11:33:12 Test Item Value Reference Range Interpretation Comments NA (test code = 142 mmol/L 135-145 8201933596) K (test code = 3.6 mmol/L 3.5-5.0 4236723734) CL (test code = 101 mmol/L 98-108 8525460862) CO2 TOTAL (test code = 38 mmol/L 23-31 H 5449954528) AGAP (test code = 2-16 4154807391) BUN (test code = 25 mg/dL 7-23 H 1366119119) GLUCOSE (test code = 81 mg/dL 70-110 1032400164) CREATININE (test code = 1.11 mg/dL 0.50-1.04 H 0341742854) CALCIUM (test code = 8.4 mg/dL 8.6-10.6 L 4374440988) eGFR (test code = mL/min/1.73m2 5594127018) GRACE (test code = GRACE) Association of [...] tests). Lab Interpretation Abnormal (test code = 59680-7) [facility] WITH [id number] 11:06:26 Test Item Value Reference Range Interpretation Comments WBC (test code = See_Comment [Automated 1690-2) message] The sy stem which generated this result transmitted reference range : 4.30 - 11.10 10*3/?L. The reference range was not used to interpret this result as normal/abnormal . RBC (test code = See_Comment L [Automated 079-8) message] The sy stem which generated this [...] (test code = 57.1 fL 39.0-49.9 H 33053-1) RDW-CV (test code = 17.0 % 12.0-15.5 H 788-0) PLT (test code = See_Comment [Automated 777-3) message] The sy stem which generated this result transmitted reference range : 166 - 358 10*3/ ?L. The reference r mara was not used to interpret this result as normal/abnormal . MPV (test code = 11.5 fL 9.5-12.9 67163-3) NRBC/100 WBC (test See_Comment [Automat ed code = 7311921551) message] The system which generated this result transmitted reference range : 0.0 - 10.0 /100 WBCs. The refer ence range was not u sed to interpret th is result as normal/abnormal . NRBC x10^3 (test code <0.01 See_Comment [Auto mated = 5532785965) message] The s ystem which generated this result transmitted reference range : 10*3/?L. The reference range was not used to interpret this result as normal/abnormal . GRAN MAT (NEUT) % 48.6 % (test code = 770-8) IMM GRAN % (test code 0.30 % = 1832084055) LYMPH % (test code = 38.1 % 736-9) MONO % (test code = 9.9 % 5905-5) EOS % (test code = 2.6 % 713-8) BASO % (test code = 0.5 % 706-2) GRAN MAT x10^3(ANC) 4.60 10*3/uL 1.88-7.09 (test code = 1681292821) IMM GRAN x10^3 (test 0.03 10*3/uL 0.00-0.06 code = 3432175815) LYMPH x10^3 (test code 3.62 10*3/uL 1.32-3.29 H = 731-0) MONO x10^3 (test code 0.94 10*3/uL 0.33-0.92 H = 742-7) EOS x10^3 (test code = 0.25 10*3/uL 0.03-0.39 711-2) BASO x10^3 (test code 0.05 10*3/uL 0.01-0.07 = 704-7) Lab Interpretation Abnormal (test code = 23571-4) [facility]wallMagnesium [id number] 13:14:31 Test Item Value Reference Range Interpretation Comments MAGNESIUM (test code = 3183188237) 1.8 mg/dL 1.7-2.4 Lab Interpretation (test code = Normal 86540-6) [facility] Metabolic Panel (NA, K, CL, CO2, GLUCOSE, BUN, CREATININE, CA)2021-06-07 13:14:11 Test Item Value Reference Range Interpretation Comments NA (test code = 141 mmol/L 135-145 0663236601) K (test code = 4.3 mmol/L 3.5-5.0 5847344955) CL (test code = 103 mmol/L 98-108 1000511932) CO2 TOTAL (test code = 34 mmol/L 23-31 H 9138238341) AGAP (test code = 2-16 1777611688) BUN (test code = 19 mg/dL 7-23 7209604080) GLUCOSE (test code = 85 mg/dL 70-110 8331181790) CREATININE (test code = 0.84 mg/dL 0.50-1.04 1408935993) CALCIUM (test code = 8.5 mg/dL 8.6-10.6 L 3749392021) eGFR (test code = mL/min/1.73m2 1482496923) GRACE (test code = GRACE) Association of [...] tests). Lab Interpretation Abnormal (test code = 36809-3) [facility] with Ogepcbzjduex8547-17-07 12:41:51 Test Item Value Reference Range Interpretation [...] (test code = 59.5 fL 39.0-49.9 H 03242-8) RDW-CV (test code = 17.5 % 12.0-15.5 H 788-0) PLT (test code = See_Comment [Automated 777-3) message] The sy stem which generated this result transmitted reference range : 166 - 358 10*3/ ?L. The reference r mara was not used to interpret this result as normal/abnormal . MPV (test code = 11.8 fL 9.5-12.9 68222-9) NRBC/100 WBC (test See_Comment [Automat ed code = 6161767753) message] The system which generated this result transmitted reference range : 0.0 - 10.0 /100 WBCs. The refer ence range was not u sed to interpret th is result as normal/abnormal . NRBC x10^3 (test code <0.01 See_Comment [Auto mated = 1745642689) message] The s ystem which generated this result transmitted reference range : 10*3/?L. The reference range was not used to interpret this result as normal/abnormal . GRAN MAT (NEUT) % 65.4 % (test code = 770-8) IMM GRAN % (test code 0.40 % = 8003187730) LYMPH % (test code = 24.5 % 736-9) MONO % (test code = 8.1 % 5905-5) EOS % (test code = 1.1 % 713-8) BASO % (test code = 0.5 % 706-2) GRAN MAT x10^3(ANC) 6.41 10*3/uL 1.88-7.09 (test code = 4156943958) IMM GRAN x10^3 (test 0.04 10*3/uL 0.00-0.06 code = 1365831153) LYMPH x10^3 (test code 2.41 10*3/uL 1.32-3.29 = 731-0) MONO x10^3 (test code 0.80 10*3/uL 0.33-0.92 = 742-7) EOS x10^3 (test code = 0.11 10*3/uL 0.03-0.39 711-2) BASO x10^3 (test code 0.05 10*3/uL 0.01-0.07 = 704-7) Lab Interpretation Abnormal (test code = 71126-6) [facility] + LACTIC [id number] 19:54:30 Test Item Value Reference Range Interpretation Comments PH (test code = 2) 7.35-7.45 PCO2 (test code = See_Comment H [Automat ed 1308808304) message] The sy stem which generated this result transmitted reference range : 35 - 45 mmHg. The reference range was not used to interpret this result as normal/abnormal . PO2 (test code = See_Comment L [Automated 5970151082) message] The sy stem which generated this result transmitted reference range : 80 - 100 mmHg. The reference range was not used to interpret this result as normal/abnormal . HCO3 (test code = See_Comment H [Automate d 1742452571) message] The sy stem which generated this result transmitted reference range : 22 - 26 mEq/L. The reference range was not used to interpret this result as normal/abnormal . BE (test code = See_Comment H [Automated 9833552283) message] The sy stem which generated this result transmitted reference range : -3.0 - 3.0 mEq/ L. The reference r mara was not used to interpret this result as normal/abnormal . THB (test code = 10.0 g/dL 12.0-16.0 L 3245120299) %O2HB (test code = 87.9 % 94.0-99.0 L 5562751887) %COHB ART (test code = 0.3 % 0.0-1.5 3129014716) %METHB ART (test code = 0.3 % 0.4-1.5 L 4891214232) VOL%O2 ART (test code = 12.4 % 15.0-23.0 L 9907063140) NA (test code = 142 mmol/L 135-145 4627293058) K+ (test code = 4.3 mmol/L 3.5-5.0 2906253529) AC CA IONZ (test code = 4.80 mg/dL 4.50-5.30 3146909340) GLUCOSE (test code = 92 mg/dL 70-110 3558714218) LACTIC ACID (test code 1.08 mmol/L 0.50-2.20 = 1343988214) Lab Interpretation Abnormal (test code = 73398-7) [facility] Arterial Blood Gas.2021-06-06 19:35:33 Test Item Value Reference Range Interpretation Comments PH (test code = 2) 7.35-7.45 PCO2 (test code = See_Comment H [Automat ed message] 5638373199) The system backstitch generated this result transmitted ref erence range: 35 - 45 mmHg. The reference r mara was not used to interpret this result as normal/abnor mal. PO2 (test code = See_Comment L [Automated message] 4752191330) The system backstitch generated this result transmitted ref erence range: 80 - 100 mmHg. The reference r mara was not used to interpret this result as normal/abnor mal. HCO3 (test code = See_Comment H [Automate d message] 4415297277) The system backstitch generated this result transmitted ref erence range: 22 - 26 mEq/L. The reference r mara was not used to interpret this result as normal/abnor mal. BE (test code = See_Comment H [Automated message] 2108211455) The system backstitch generated this result transmitted ref erence range: -3.0 - 3 .0 mEq/L. The refe rence range was not u sed to interpret this result as normal/abnor mal. Lab Interpretation (test Abnormal code = 90156-9) [facility].2021-06-06 18:53:46 Test Item Value Reference Range Interpretation Comments PH (test code = 2) 7.35-7.45 L PCO2 (test code = See_Comment H [Automat ed message] 7162020395) The system backstitch generated this result transmitted ref erence range: 35 - 45 mmHg. The reference r mara was not used to interpret this result as normal/abnor mal. PO2 (test code = See_Comment L [Automated message] 7714699151) The system backstitch generated this result transmitted ref erence range: 80 - 100 mmHg. The reference r mara was not used to interpret this result as normal/abnor mal. HCO3 (test code = See_Comment H [Automate d message] 4186731166) The system backstitch generated this result transmitted ref erence range: 22 - 26 mEq/L. The reference r mara was not used to interpret this result as normal/abnor mal. BE (test code = See_Comment H [Automated message] 5238816360) The system backstitch generated this result transmitted ref erence range: -3.0 - 3 .0 mEq/L. The refe rence range was not u sed to interpret this result as normal/abnor mal. Lab Interpretation (test Abnormal code = 38730-9) [facility] [id number] 18:26:09 Test Item Value Reference Interpretation Comments Range TROPONIN I (test 0.014 ng/mL See_Comment [Automated code = 0330765533) message] The system which generated this result [...] biotin. Lab Interpretation Normal (test code = 55913-7) [facility] [id number] 18:23:07 Test Item Value Reference Range Interpretation Comments NT-proBNP (test code 855 pg/mL See_Comment H [Autom ated = 8358315740) message] The system which generated this result transmitted reference range : <=125. The reference range was not used to interpret this result as normal/abnormal . GRACE (test code = GRAEC) Biotin has been reported to cause a negative bias, interpret results relative to patient's use of biotin. Lab Interpretation Abnormal (test code = 45976-3) [facility] WITH [id number] 17:13:56 Test Item Value Reference Range Interpretation [...] (test code = 58.4 fL 39.0-49.9 H 87640-6) RDW-CV (test code = 17.3 % 12.0-15.5 H 788-0) PLT (test code = See_Comment [Automated 777-3) message] The system which generated this result transmit masoud reference range : 166 - 358 10*3/ ?L. The reference range was not u sed to interpret th is result as normal/abnormal . MPV (test code = 11.1 fL 9.5-12.9 76818-7) NRBC/100 WBC (test See_Comment [Automat ed code = 3105863689) message] The system which generated this result transmit masoud reference range : 0.0 - 10.0 /100 WBCs. The reference range was not used to interpret this result as normal/abnormal . NRBC x10^3 (test code <0.01 See_Comment [Auto mated = [id number]) message] The system which generated this result transmit masoud reference range : 10*3/?L. The reference range was not used to interpret this result as normal/abnormal . GRAN MAT (NEUT) % 82.8 % (test code = 770-8) IMM GRAN % (test code 0.50 % = 1646691084) LYMPH % (test code = 10.1 % 736-9) MONO % (test code = 5.3 % 5905-5) EOS % (test code = 1.1 % 713-8) BASO % (test code = 0.2 % 706-2) GRAN MAT x10^3(ANC) 10.06 10*3/uL 1.88-7.09 H (test code = 9276468699) IMM GRAN x10^3 (test 0.06 10*3/uL 0.00-0.06 code = 0573923239) LYMPH x10^3 (test code 1.23 10*3/uL 1.32-3.29 L = 731-0) MONO x10^3 (test code 0.65 10*3/uL 0.33-0.92 = 742-7) EOS x10^3 (test code = 0.13 10*3/uL 0.03-0.39 711-2) BASO x10^3 (test code 0.03 10*3/uL 0.01-0.07 = 704-7) Lab Interpretation Abnormal (test code = 63697-2) [facility]. METABOLIC PANEL (32518)2021-06-06 17:08:36 Test Item Value Reference Range Interpretation Comments NA (test code = 144 mmol/L 135-145 4484389802) K (test code = 4.6 mmol/L 3.5-5.0 3310904289) CL (test code = 106 mmol/L 98-108 1047467262) CO2 TOTAL (test code = 30 mmol/L 23-31 9414320452) AGAP (test code = 2-16 9784197642) BUN (test code = 18 mg/dL 7-23 4122523273) GLUCOSE (test code = 193 mg/dL 70-110 H 3329142736) CREATININE (test code = 0.91 mg/dL 0.50-1.04 7484271363) TOTAL BILI (test code = 0.5 mg/dL 0.1-1.0 8460832305) CALCIUM (test code = 8.9 mg/dL 8.6-10.6 8792198138) T PROTEIN (test code = 7.1 g/dL 6.3-8.2 1704185337) ALBUMIN (test code = 4.0 g/dL 3.5-5.0 1193500829) ALK PHOS (test code = 101 U/L 34-122 5492235950) ALTv (test code = 19 U/L 5-35 1742-6) AST(SGOT) (test code = 33 U/L 13-40 6965278830) eGFR (test code = mL/min/1.73m2 6533560317) GRACE (test code = GRACE) Association of [...] tests). Lab Interpretation Abnormal (test code = 60704-9) [facility] L[facility] [id number] 16:35:05 Test Item Value Reference Range Interpretation Comments PH (test code = 2) 7.35-7.45 L PCO2 (test code = See_Comment H [Automat ed [id number]) message] The sy stem which generated this result transmitted reference range : 35 - 45 mmHg. The reference range was not used to interpret this result as normal/abnormal . PO2 (test code = See_Comment H [Automated [id number]) message] The sy stem which generated this result transmitted reference range : 80 - 100 mmHg. The reference range was not used to interpret this result as normal/abnormal . HCO3 (test code = See_Comment H [Automate d 7236996533) message] The sy stem which generated this result transmitted reference range : 22 - 26 mEq/L. The reference range was not used to interpret this result as normal/abnormal . BE (test code = See_Comment [Automated [id number]) message] The sy stem which generated this result transmitted reference range : -3.0 - 3.0 mEq/ L. The reference r mara was not used to interpret this result as normal/abnormal . THB (test code = 10.4 g/dL 12.0-16.0 L 4988033720) %O2HB (test code = 98.6 % 94.0-99.0 7413545017) %COHB ART (test code = 0.3 % 0.0-1.5 0424773519) %METHB ART (test code = 0.0 % 0.4-1.5 L 3654052826) VOL%O2 ART (test code = 14.7 % 15.0-23.0 L 9359755083) NA (test code = 143 mmol/L 135-145 2834656516) K+ (test code = 4.2 mmol/L 3.5-5.0 4507432881) AC CA IONZ (test code = 4.80 mg/dL 4.50-5.30 6549484286) GLUCOSE (test code = 185 mg/dL 70-110 H 4105577651) LACTIC ACID (test code 1.29 mmol/L 0.50-2.20 = 9746219702) Lab Interpretation Abnormal (test code = 53002-4) [facility] [Presence] in Respiratory specimen by ANT with probe [id number] 06:30:18 Test Item Value Reference Range Interpretation Comments SARS-CoV-2 (COVID-19) RNA Not detected Not-Detected [Presence] in Respiratory specimen by ANT with probe detection (test code = 85738-3) Whether patient is employed in a healthcare setting (test code = 97161-3) Whether the patient has symptoms related to condition of interest (test code = 70947-2) Patient was hospitalized because of this condition (test code = 96017-9) Whether the patient was admitted to intensive care unit (ICU) for condition of interest (test code = 46318-7) Whether patient resides in a congregate care setting (test code = 72979-9) SARS-COV2/RT-PCR ([facility])2019-12-02 19:28:00 Test Item Value Reference Range Interpretation Comments SARS-COV2/RT-PCR (test Negative Not Detected, Negative, code = 5115058) See external report for linked test SARS-COV-2 PERFORMING LAB [facility] (test code = 0278789) Negative result for this test determines that [...] of the Act.Fact Sheet for Healthcare Providers:https://www.[employer].com/sites/default/files/product/documents/Fact_Shee r_BZ_Ntthtnjdr_Fmta_BCLN-RlT-5.pdfFact Sheet for Healthcare Patients:https://www.[employer]/sites/default/files/product/ documents/Yxoi_Roixb_Qjqbjlat_Twzc_PWMV-CoT-6.pdfPerforming Laboratory:[facility] [place] [address]"
[2021-09-17 15:37] LABS: Absolute Lymphocytes (CBC) 2.2 K/uL (0.7-4.9); Hematocrit 30.8 % (36.0-45.0); MPV 7.3 fL (7.6-11.3)
[2021-09-17 15:52] LABS: Bilirubin Total 0.5 mg/dL (0.2-1.0); Magnesium 1.9 mg/dL (1.8-2.4); Potassium 4.1 mmol/L (3.5-5.1); Protein, Total 7.4 g/dL (6.4-8.2)
[2021-09-17 15:58] LABS: Urine Blood Negative (Negative); Urine Glucose Negative (Negative); Urine Protein Negative (Negative)
[2021-09-17 16:13] LABS: Urine Bacteria <20 /HPF (<20); Urine RBC <5 /HPF (NONE SEEN)
--- NOTE | 2021-09-17 17:04 | RAD REPORT ---
EXAM DESCRIPTION: USExtrem Venous W Compress Bil09/17/2021 4:57 pm CLINICAL HISTORY: Leg swelling COMPARISON: 2020 FINDINGS: The common femoral, superficial femoral, popliteal and posterior tibial veins bilaterally are compressible and demonstrate augmentation. Doppler demonstrates good flow. Grayscale, color and spectral analysis performed on all vessels IMPRESSION: No evidence of deep venous thrombosis involving either lower extremity.
--- NOTE | 2021-09-17 17:48 | RAD REPORT ---
EXAM DESCRIPTION: CT - Abdomen Pelvis W Contrast - 09/17/2021 5:33 pm CLINICAL HISTORY: Abdominal pain COMPARISON: 2019 TECHNIQUE: Computed axial tomography of the abdomen pelvis was obtained. 100 cc Isovue-300 was admin istered intravenously. Oral contrast was not requested which limits evaluation of bowel and appendix All CT scans are performed using dose optimization technique as appropriate and may include automated exposure control or mA/KV adjustment according to patient size. FINDINGS: Small hepatic cysts. Cholecystectomy. Chronic elevation right hemidiaphragm. Spleen, pancreas and adrenals unremarkable. Small renal cysts. Postsurgical changes involve the lumbar spine. Large amount stool is present throughout the colon. 6 x 1 centimeter mass suspected left lateral bladder wall. IMPRESSION: 6 x 1 centimeter mass left lateral bladder wall suspicious for neoplasm. Direct visualiz ation recommended Large amount stool within the colon
--- NOTE | 2021-09-17 18:28 | ER ---
Nurse's Notes [facility] Name: Emeli Perez Age: 66 yrs Sex: Female : 1955 Arrival Date: 09/17/2021 Time: 14:41 Bed 6 Private MD: Diagnosis: Dysuria;Constipation;Bladder Mass Presentation: 09/17 14:42 Chief complaint: EMS states: MALAISE AND DYSURIA x7 DAYS. Coronavirus screen: At this bp time, the client does not indicate any symptoms associated with coronavirus-19. Ebola Screen: No symptoms or risks identified at this time. Initial Sepsis Screen: Does the patient meet any 2 criteria? No. Patient's initial sepsis screen is negative. Does the patient have a suspected source of infection? No. Patient's initial sepsis screen is negative. Risk Assessment: Do you want to hurt yourself or someone else? Patient reports no desire to harm self or others. Onset of symptoms is unknown. 14:42 Method Of Arrival: EMS: [facility] bp 14:42 Acuity: CORNELIA 3 bp Triage Assessment: 14:43 General: Appears in no apparent distress. uncomfortable, Behavior is calm, cooperative, bp appropriate for age. Pain: Denies pain. EENT: No deficits noted. Neuro: No deficits noted. Cardiovascular: No deficits noted. Respiratory: Airway is patent Respiratory effort is even, unlabored. GI: No signs and/or symptoms were reported involving the gastrointestinal system. : Reports burning with urination. Derm: No deficits noted. Musculoskeletal: No deficits noted. Historical: - Allergies: 14:43 Codeine; bp 14:43 Darvocet-N 100; bp 14:43 Morphine; bp 14:43 PENICILLINS; bp - Home Meds: 14:43 carvedilol Oral [Active]; Simvastatin Oral [Active]; Spironolactone Oral [Active]; bp Xanax Oral [Active]; - PMHx: 14:43 Anxiety; Arthritis; Atrial Fib; CHF; diabetes mellitus; drop foot; Gout; bp Hyperlipidemia; Hypertension; kidney failure; - Immunization history:: Adult Immunizations up to date. - Social history:: Smoking status: Patient denies any tobacco usage or history of. Screenin:45 Abuse screen: Denies threats or abuse. Denies injuries from another. Nutritional bp screening: No deficits noted. Tuberculosis screening: No symptoms or risk factors identified. Fall Risk No fall in past 12 months (0 pts). Assessment: 14:45 General: SEE TRIAGE NOTE. bp 16:03 Reassessment: Patient appears in no apparent distress at this time. Patient and/or ph family updated on plan of care and expected duration. Pain level reassessed. Patient is alert, oriented x 3, equal unlabored respirations, skin warm/dry/pink. Pt c/o pain to L ankle, denies fall or known trauma to ankle, ERP notified. 16:33 Reassessment: U/S AT B/S. bp 17:10 Reassessment: Pt taken to CT via stretcher. ph 17:55 Reassessment: PT RETURNED FROM RAD. bp 18:52 Reassessment: EMS CONTACTED FOR TRANSPORT HOME. bp Vital Signs: 14:42 BP 153 / 80; Pulse 95; Resp 20; Temp 98; Pulse Ox 97% ; bp 16:03 BP 165 / 70; Pulse 66; Resp 18; Pulse Ox 99% on 2 lpm NC; ph 17:54 BP 151 / 62; Pulse 64; Resp 17; Pulse Ox 100% ; bp 19:38 BP 152 / 64; Pulse 74; Resp 18 S; Pulse Ox 100% on 2 lpm NC; as6 ED Course: 14:41 Patient arrived in ED. bp 14:43 Triage completed. bp 14:43 Roberto Encinas PA is PHCP. cp 14:43 Saulo Goldstein DO is Attending Physician. cp 14:43 Arm band placed on. bp 14:45 Patient has correct armband on for positive identification. Bed in low position. Call bp light in reach. Side rails up X2. 14:57 Fabi Silvestre, RN is Primary Nurse. ph 15:28 Inserted saline lock: 22 gauge in left antecubital area, using aseptic technique. Blood bp collected. 16:02 Urine collected: straight cath specimen, Amount Returned: 400mL. Straight cath ph inserted, using sterile technique, 16 Fr. Specimen obtained. Returned clear yellow urine. Patient tolerated well. 16:59 US Extremity Venous W Compression Cleve In Process Unspecified. EDMS 17:34 CT Abd/Pelvis - IV Contrast Only In Process Unspecified. EDMS 18:27 Chaitanya Dee MD is Referral Physician. cp 19:18 Primary Nurse role handed off by Fabi Silvestre, RN mw2 19:38 Michael Holcomb, RN is Primary Nurse. as6 19:38 No provider procedures requiring assistance completed. IV discontinued, intact, as6 bleeding controlled, No redness/swelling at site. Pressure dressing applied. Administered Medications: No medications were administered Medication: 14:45 VIS not applicable for this client. bp Outcome: 18:28 Discharge ordered by MD. cp 19:39 Discharged to fdc. Transfer form completed. as6 19:39 Condition: stable 19:39 Discharge instructions given to patient, Instructed on discharge instructions, follow up and referral plans. Demonstrated understanding of instructions, follow-up care. 19:39 Patient left the ED. as6 Signatures: Dispatcher [employer] EDMS Fabi Silvestre, RN RN Roberto Coronel PA PA cp Peltier, Brian, RN RN Isaura RileyCielo mw2 Michael Holcomb, RN RN as6
--- NOTE | 2021-09-17 18:28 | EDPHYS ---
Physician Documentation [facility] Name: Emeli Perez Age: 66 yrs Sex: Female : 1955 Arrival Date: 09/17/2021 Time: 14:41 Bed 6 Private MD: ED Physician Saulo Goldstein HPI: 09/17 15:00 This 66 yrs old Black Female presents to ER via EMS with complaints of Pain With cp Urination. 15:00 The patient presents with urinary symptoms, dysuria. Associated signs and symptoms: cp Pertinent positives: abdominal pain, fatigue, Pertinent negatives: diarrhea, fever, vomiting. 15:00 Onset: The symptoms/episode began/occurred 7 day(s) ago. cp 15:00 Severity of symptoms: in the emergency department the symptoms are unchanged, despite cp home interventions. Historical: - Allergies: 14:43 Codeine; bp 14:43 Darvocet-N 100; bp 14:43 Morphine; bp 14:43 PENICILLINS; bp - Home Meds: 14:43 carvedilol Oral [Active]; Simvastatin Oral [Active]; Spironolactone Oral [Active]; bp Xanax Oral [Active]; - PMHx: 14:43 Anxiety; Arthritis; Atrial Fib; CHF; diabetes mellitus; drop foot; Gout; bp Hyperlipidemia; Hypertension; kidney failure; - Immunization history:: Adult Immunizations up to date. - Social history:: Smoking status: Patient denies any tobacco usage or history of. ROS: 15:05 : Positive for burning with urination, Negative for flank pain. cp 15:05 Constitutional: Negative for body aches, chills, fever, poor PO intake. cp 15:05 Abdomen/GI: Positive for abdominal pain, Negative for vomiting, diarrhea, constipation. 15:05 Cardiovascular: Negative for chest pain, palpitations. cp 15:05 Eyes: Negative for injury, pain, redness, and discharge. cp 15:05 ENT: Negative for ear pain, sore throat, difficulty swallowing, difficulty handling secretions. 15:05 Respiratory: Negative for cough, shortness of breath, wheezing. 15:05 Back: Negative for pain at rest, pain with movement. 15:05 Neuro: Negative for altered mental status, dizziness, numbness, weakness. 15:05 All other systems are negative. Exam: 15:10 Constitutional: The patient appears in no acute distress, alert, awake, non-toxic, well cp developed, well nourished. 15:10 Head/Face: Normocephalic, atraumatic. cp 15:10 Eyes: Periorbital structures: appear normal, Conjunctiva: normal, no exudate, no cp injection, Sclera: no appreciated abnormality, Lids and lashes: appear normal, bilaterally. 15:10 ENT: External ear(s): are unremarkable, Nose: is normal, Mouth: Lips: dry, Oral mucosa: dry, Posterior pharynx: Airway: no evidence of obstruction, patent. 15:10 Neck: ROM/movement: is normal, is supple, without pain, no range of motions limitations. 15:10 Chest/axilla: Inspection: normal, Palpation: is normal, no crepitus, no tenderness. 15:10 Cardiovascular: Rate: normal, Rhythm: regular, Edema: ankle edema, that is marked. 15:10 Respiratory: the patient does not display signs of respiratory distress, Respirations: labored breathing, that is mild, Breath sounds: are clear throughout, no decreased breath sounds, no stridor, no wheezing. 15:10 Abdomen/GI: Inspection: abdomen appears normal, Palpation: soft, in all quadrants, mild abdominal tenderness, in the right lower quadrant and left lower quadrant, rebound tenderness, is not appreciated, involuntary guarding, is not appreciated. 15:10 Neuro: Orientation: to person, place \T\ time. Mentation: is normal. Vital Signs: 14:42 BP 153 / 80; Pulse 95; Resp 20; Temp 98; Pulse Ox 97% ; bp 16:03 BP 165 / 70; Pulse 66; Resp 18; Pulse Ox 99% on 2 lpm NC; ph 17:54 BP 151 / 62; Pulse 64; Resp 17; Pulse Ox 100% ; bp 19:38 BP 152 / 64; Pulse 74; Resp 18 S; Pulse Ox 100% on 2 lpm NC; as6 MDM: 14:50 Patient medically screened. cp 18:28 Data reviewed: vital signs, nurses notes, lab test result(s), radiologic studies, CT cp scan, ultrasound. 18:28 Differential diagnosis: nonspecific abdominal pain, urinary tract infection, sepsis. cp Counseling: I had a detailed discussion with the patient and/or guardian regarding: the historical points, exam findings, and any diagnostic results supporting the discharge/admit diagnosis, lab results, radiology results, the need for outpatient follow up, a urologist. Response to treatment: the patient's symptoms have mildly improved after treatment, and as a result, I will discharge patient. Special discussion: bladder mass and need for urology f/u. 09/17 14:50 Order name: CBC with Diff; Complete Time: 15:59 cp 09/17 17:56 Interpretation: Normal except: RBC 3.50; HGB 10.2; HCT 30.8; RDW 17.5; MPV 7.3. cp 09/17 14:50 Order name: CMP; Complete Time: 15:59 cp 09/17 18:02 Interpretation: Normal except: CL 109; GFR 49; AST 13; ALK 121; ALB 3.0; GLOB 4.4; A/G cp 0.7. 09/17 14:50 Order name: Lipase; Complete Time: 15:59 cp 09/17 14:50 Order name: Urine Microscopic Only; Complete Time: 16:43 cp 09/17 14:50 Order name: Magnesium; Complete Time: 15:59 cp 09/17 15:59 Order name: Urine Dipstick-Ancillary; Complete Time: 15:59 EDMS 09/17 14:50 Order name: IV Saline Lock; Complete Time: 15:28 cp 09/17 14:50 Order name: Labs collected and sent; Complete Time: 15:28 cp 09/17 14:50 Order name: Urine Dipstick-Ancillary (obtain specimen); Complete Time: 16:02 cp 09/17 14:50 Order name: Cath; Complete Time: 16:02 cp 09/17 15:59 Order name: US Extremity Venous W Compression Cleve; Complete Time: 17:55 cp 09/17 17:55 Interpretation: Report reviewed. cp 09/17 16:00 Order name: CT Abd/Pelvis - IV Contrast Only; Complete Time: 17:55 cp 09/17 18:03 Interpretation: Report reviewed. cp Administered Medications: No medications were administered Disposition Summary: 09/17/21 18:28 Discharge Ordered Location: Home cp Problem: new cp Symptoms: have improved cp Condition: Stable cp Diagnosis - Dysuria cp - Constipation cp - Bladder Mass cp Followup: cp - With: Chaitanya Dee MD - When: 2 - 3 days - Reason: Recheck today's complaints Discharge Instructions: - Discharge Summary Sheet cp - Constipation, Adult cp - Dysuria cp Forms: - Medication Reconciliation Form cp - Thank You Letter cp - Antibiotic Education cp - Prescription Opioid Use cp - SBAR form tw5 Signatures: Dispatcher [employer] EDMS Roberto Encinas PA PA cp Peltier, Brian, RN RN bp Corrections: (The following items were deleted from the chart) 18:02 18:02 Normal except: CL 109; GFR 49. cp cp 09/18 19:03 09/17 15:00 Associated signs and symptoms: Pertinent positives: abdominal pain, cp Pertinent negatives: diarrhea, fever, vomiting, cp
[2021-09-17 19:49] VITALS: TEMP 98
[2021-09-17 19:53] VITALS: O2SAT 100
[2021-09-17 19:54] VITALS: BP 152/64
== END 2021-09-17 19:39 | disposition home or self-care (01) ==
LOC: ER 14:39
DX: R30.0 Dysuria (principal); K59.00 Constipation, unspecified; N32.9 Bladder disorder, unspecified; E11.22 Type 2 diabetes mellitus with diabetic chronic kidney disease; N18.9 Chronic kidney disease, unspecified; F41.9 Anxiety disorder, unspecified; I10 Essential (primary) hypertension; I50.9 Heart failure, unspecified; Z88.0 Allergy status to penicillin; Z88.5 Allergy status to narcotic agent
CPT/HCPCS: 85025; 36415; 83735; 83690; 80053; 74177; 93970; 51702; 99284; Q9967; 81003; 81015